=== PATIENT | male | born 1945 | race Caucasian/White ===

== ENCOUNTER 2019-07-11 12:55 | Inpatient (IN) | payer OTHER, SELFPAY ==
[2019-07-11] VITALS (27 sets, daily range): BP systolic 101–173; BP diastolic 78–118; PULSE 101–124; RESP 20–35; TEMP 36.6–38.3; O2SAT 84–98; BMI 29.8
--- NOTE | 2019-07-11 13:00 | ED_ITS ---
Entered by Tanika Collins, acting as scribe for Raghav Foley DO HPI - General Adult General: Chief complaint: Altered Mental Status Stated complaint: POSS SEPSIS, AFIB WITH RVR Time Seen by Provider: 07/11/19 12:58 Source: EMS Mode of arrival: EMS Limitations: altered mental status History of Present Illness: HPI narrative: 74-year-old male who presents emergency room for altered mental status. Is difficult to arouse he cannot answer any meaningful way. He will turn to look at verbal stimuli but offers no attempt to vocalize any answer. He cannot seem to respond in any meaningful way. Family noticed he did not seem quite himself yesterday but this morning was essentially nonresponsive. MD complaint: unresponsive Onset (ago): day(s) (last night) Radiation: non-radiation Severity: moderate Pain Consistency: constant Review of Systems General: Reports: ROS unobtainable due to medical condition and ROS unobtainable due to mental status Narrative: Family reports cough denies known fever. Has not had any vomiting he has had some loose stools at home. PFSH ED PFSH: Medical History Abdominal aortic aneurysm Atrial fibrillation Diabetes mellitus Hypertension Peripheral vascular disease Surgical History History of herniorrhaphy History of orthopedic surgery Right shoulder Hx of cholecystectomy Family History Father CAD (coronary artery disease) Social History Smoking and tobacco status: former smoker Alcohol intake: current Alcohol intake frequency: few times a week Substance/Drug Use: never Physical Exam HENMT: COMMON NORMALS: normocephalic, head/scalp atraumatic, hearing grossly normal bilaterally, external ears normal, EAC's normal, TM's normal bilaterally, nasal mucous membranes and turbinates normal, moist oral mucous membranes and oropharynx normal HEAD & SCALP: normocephalic and atraumatic NOSE: nasal mucous membranes and turbinates normal EXTERNAL EAR: Yes external ears normal EXTERNAL AUDITORY CANAL: EAC's normal TYMPANIC MEMBRANE: TM's normal bilaterally Eye: COMMON NORMALS: PERRL, EOMs intact bilaterally, conjunctivae normal and no scleral icterus CONJUNCTIVA: Yes conjunctivae normal PUPIL: Yes PERRL Neck/C-Spine: COMMON NORMALS: full ROM, no lymphadenopathy, supple and no JVD Lymph: LYMPHATIC: no lymphadenopathy noted and no lymphedema noted Cardio: COMMON NORMALS: no JVD, regular rate, regular rhythm and no murmurs RATE: regular rate RHYTHM: regular rhythm GI: COMMON NORMALS: soft to palpation and no hepatosplenomegaly AUSCULTATION: Yes normoactive bowel sounds PALPATION: Yes soft, No tender, No guarding and Yes no hepatosplenomegaly : OTHER: Bladder palpable above the level of the pubic symphysis moderately tender no guarding no rebound, it is dull to percussion Course ED course: Patient has acute encephalopathy. Is a history of diabetes mellitus atrial fibrillation hypertension. When I initially seen the patient abdomen but not however later in the visit he developed acute abdominal discomfort we will go ahead and CT his abdomen discussed with the hospitalist. Vital Signs: Vital signs: Vital Signs Temperature 98.6 F 07/14/19 16:00 Pulse Rate 83 07/14/19 16:25 Respiratory Rate 16 07/14/19 18:08 Blood Pressure 176/96 07/14/19 16:00 Pulse Oximetry 93 07/14/19 16:22 MDM - General Adult Lab Data: Labs: Lab Results 07/11/19 07/11/19 07/11/19 Range/Units 12:27 12:27 12:27 WBC 22.7 H (4.0-10.0) 10^3/ uL RBC 4.56 (4.1-5.3) 10^6/u L Hgb 15.0 (11.7-16.6) g/dL Hct 44.2 (42.0-52.0) % MCV 96.9 H (80-94) fL MCH 32.9 (28.0-34.0) pg MCHC 33.9 (30.0-36.0) g/dL RDW 12.4 (12.1-15.1) % Plt Count 274 (130-400) 10^3/c mm MPV 11.3 H (7.4-10.4) fL Neut % (Auto) 90.0 % Lymph % (Auto) 2.4 % [place] % (Auto) 6.5 % Eos % (Auto) 0.0 % Baso % (Auto) 0.1 % Neut # (Auto) 20.5 H (1.8-7.7) 10^3/u L Lymph # (Auto) 0.5 L (0.8-4.8) 10^3/u L [place] # (Auto) 1.5 H (0.2-0.9) 10^3/u L Eos # (Auto) 0.0 (0.0-0.8) 10^3/u L Baso # (Auto) 0.0 (0.0-0.1) 10^3/u L Nucleated RBC % (a uto) 0 % Nucleated RBCs # 0.0 /100WBC PT 19.40 H (10.5-13.3) SECO NDS INR 1.58 H (0.8-1.2) APTT 34.3 (23.9-36.7) SECO NDS Specimen Type Sample Site ABG pH (7.35-7.45) ABG pCO2 (35-45) mmHg ABG pO2 (80.0-100.0) mmH g ABG HCO3 (22-26) mmol/L ABG O2 Saturation ABG Base Excess (-2.0-2.0) mmol/ L Orion Test A-a O2 Gradient (5-10) mmHg Hematocrit (42-52) % Hgb O2 Saturation (95-100) % Carboxyhemoglobin (0.4-20.1) %THgb Methemoglobin (0.4-1.5) % Total Hemoglobin (14-18) g/dL Ionized Calcium (1.1-1.4) mmol/L O2 Delivery Device FiO2 % Pony Worker ID Sodium (136-145) mmol/L Potassium (3.5-5.1) mmol/L Chloride (98-107) mmol/L Carbon Dioxide (22-29) mmol/L Anion Gap (5-19) BUN (8-23) mg/dL Creatinine (0.7-1.2) mg/dL Glucose (65-115) mg/dL Lactic Acid (0.5-2.2) mmol/L Calcium (8.5-10.5) mg/dL Total Bilirubin (0.15-1.2) mg/dL AST (0-40) U/L ALT (0-41) U/L Alkaline Phosphata se (40-130) IU/L Troponin T Baselin e 42 H (0-15) ng/mL Troponin T 120 Min [place] (0-15) ng/mL Delta Troponin T (0-10) ABS# Total Protein (6.6-8.7) g/dL Albumin (3.5-5.2) g/dL Globulin (1.3-4.6) g/dL Lipase (13-60) U/L Urine Color (Yellow) Urine Appearance (CLEAR) Urine pH (5-7) Ur Specific Gravit y (1.005-1.030) Urine Protein (Negative) Urine Glucose (UA) (Normal) Urine Ketones (Negative) Urine Blood (Negative) Urine Nitrate (Negative) Urine Bilirubin (NEGATIVE) Urine Urobilinogen (Negative) mg/dL Ur Leukocyte Armida ase (Negative) Urine RBC (0-2) /hpf Urine WBC (0-5) /hpf Ur Squamous Epith Cells (0-5) Urine Bacteria (NONE) Urine Mucus Serum Ketones (Negative) Influenza Type A A g (Negative) POC Influenza B Ag (Negative) 07/11/19 07/11/19 07/11/19 Range/Units 12:27 12:27 13:05 WBC (4.0-10.0) 10^3/ uL RBC (4.1-5.3) 10^6/u L Hgb (11.7-16.6) g/dL Hct (42.0-52.0) % MCV (80-94) fL MCH (28.0-34.0) pg MCHC (30.0-36.0) g/dL RDW (12.1-15.1) % Plt Count (130-400) 10^3/c mm MPV (7.4-10.4) fL Neut % (Auto) % Lymph % (Auto) % [place] % (Auto) % Eos % (Auto) % Baso % (Auto) % Neut # (Auto) (1.8-7.7) 10^3/u L Lymph # (Auto) (0.8-4.8) 10^3/u L [place] # (Auto) (0.2-0.9) 10^3/u L Eos # (Auto) (0.0-0.8) 10^3/u L Baso # (Auto) (0.0-0.1) 10^3/u L Nucleated RBC % (a uto) % Nucleated RBCs # /100WBC PT (10.5-13.3) SECO NDS INR (0.8-1.2) APTT (23.9-36.7) SECO NDS Specimen Type Arterial Sample Site Radial, left ABG pH 7.47 H (7.35-7.45) ABG pCO2 26.3 L (35-45) mmHg ABG pO2 65.4 L (80.0-100.0) mmH g ABG HCO3 19.0 L (22-26) mmol/L ABG O2 Saturation 94.7 ABG Base Excess -3.0 L (-2.0-2.0) mmol/ L Orion Test Pos A-a O2 Gradient 51.5 H (5-10) mmHg Hematocrit 48.1 (42-52) % Hgb O2 Saturation 92.6 L (95-100) % Carboxyhemoglobin 1.6 (0.4-20.1) %THgb Methemoglobin 0.6 (0.4-1.5) % Total Hemoglobin 15.7 (14-18) g/dL Ionized Calcium 1.1 (1.1-1.4) mmol/L O2 Delivery Device Room air FiO2 21.0 % Pony Worker ID cak Sodium 132 L 135.0 (136-145) mmol/L Potassium 3.6 3.6 (3.5-5.1) mmol/L Chloride 92 L (98-107) mmol/L Carbon Dioxide 18 L (22-29) mmol/L Anion Gap 25.6 H (5-19) BUN 21 (8-23) mg/dL Creatinine 1.2 (0.7-1.2) mg/dL Glucose 341 H 332.0 H (65-115) mg/dL Lactic Acid (0.5-2.2) mmol/L Calcium 9.4 (8.5-10.5) mg/dL Total Bilirubin 1.4 H (0.15-1.2) mg/dL AST 43 H (0-40) U/L ALT 51 H (0-41) U/L Alkaline Phosphata se 100 (40-130) IU/L Troponin T Baselin e (0-15) ng/mL Troponin T 120 Min [place] (0-15) ng/mL Delta Troponin T (0-10) ABS# Total Protein 7.6 (6.6-8.7) g/dL Albumin 3.8 (3.5-5.2) g/dL Globulin 3.8 (1.3-4.6) g/dL Lipase 22 (13-60) U/L Urine Color (Yellow) Urine Appearance (CLEAR) Urine pH (5-7) Ur Specific Gravit y (1.005-1.030) Urine Protein (Negative) Urine Glucose (UA) (Normal) Urine Ketones (Negative) Urine Blood (Negative) Urine Nitrate (Negative) Urine Bilirubin (NEGATIVE) Urine Urobilinogen (Negative) mg/dL Ur Leukocyte Armida ase (Negative) Urine RBC (0-2) /hpf Urine WBC (0-5) /hpf Ur Squamous Epith Cells (0-5) Urine Bacteria (NONE) Urine Mucus Serum Ketones Negative (Negative) Influenza Type A A g (Negative) POC Influenza B Ag (Negative) 07/11/19 07/11/19 07/11/19 Range/Units 13:22 14:05 15:10 WBC (4.0-10.0) 10^3/ uL RBC (4.1-5.3) 10^6/u L Hgb (11.7-16.6) g/dL Hct (42.0-52.0) % MCV (80-94) fL MCH (28.0-34.0) pg MCHC (30.0-36.0) g/dL RDW (12.1-15.1) % Plt Count (130-400) 10^3/c mm MPV (7.4-10.4) fL Neut % (Auto) % Lymph % (Auto) % [place] % (Auto) % Eos % (Auto) % Baso % (Auto) % Neut # (Auto) (1.8-7.7) 10^3/u L Lymph # (Auto) (0.8-4.8) 10^3/u L [place] # (Auto) (0.2-0.9) 10^3/u L Eos # (Auto) (0.0-0.8) 10^3/u L Baso # (Auto) (0.0-0.1) 10^3/u L Nucleated RBC % (a uto) % Nucleated RBCs # /100WBC PT (10.5-13.3) SECO NDS INR (0.8-1.2) APTT (23.9-36.7) SECO NDS Specimen Type Sample Site ABG pH (7.35-7.45) ABG pCO2 (35-45) mmHg ABG pO2 (80.0-100.0) mmH g ABG HCO3 (22-26) mmol/L ABG O2 Saturation ABG Base Excess (-2.0-2.0) mmol/ L Orion Test A-a O2 Gradient (5-10) mmHg Hematocrit (42-52) % Hgb O2 Saturation (95-100) % Carboxyhemoglobin (0.4-20.1) %THgb Methemoglobin (0.4-1.5) % Total Hemoglobin (14-18) g/dL Ionized Calcium (1.1-1.4) mmol/L O2 Delivery Device FiO2 % Pony Worker ID Sodium (136-145) mmol/L Potassium (3.5-5.1) mmol/L Chloride (98-107) mmol/L Carbon Dioxide (22-29) mmol/L Anion Gap (5-19) BUN (8-23) mg/dL Creatinine (0.7-1.2) mg/dL Glucose (65-115) mg/dL Lactic Acid (0.5-2.2) mmol/L Calcium (8.5-10.5) mg/dL Total Bilirubin (0.15-1.2) mg/dL AST (0-40) U/L ALT (0-41) U/L Alkaline Phosphata se (40-130) IU/L Troponin T Baselin e (0-15) ng/mL Troponin T 120 Min [place] 39.56 H (0-15) ng/mL Delta Troponin T -2.44 L (0-10) ABS# Total Protein (6.6-8.7) g/dL Albumin (3.5-5.2) g/dL Globulin (1.3-4.6) g/dL Lipase (13-60) U/L Urine Color Yellow (Yellow) Urine Appearance Clear (CLEAR) Urine pH 5.0 (5-7) Ur Specific Gravit y 1.020 (1.005-1.030) Urine Protein Trace (Negative) Urine Glucose (UA) 4+ H (Normal) Urine Ketones 1+ H (Negative) Urine Blood Neg (Negative) Urine Nitrate Negative (Negative) Urine Bilirubin Neg (NEGATIVE) Urine Urobilinogen Norm (Negative) mg/dL Ur Leukocyte Armida ase Negative (Negative) Urine RBC Rare (0-2) /hpf Urine WBC Rare (0-5) /hpf Ur Squamous Epith Cells None (0-5) Urine Bacteria None (NONE) Urine Mucus Trace Serum Ketones (Negative) Influenza Type A A g Negative (Negative) POC Influenza B Ag Negative (Negative) 07/11/19 Range/Units 16:25 WBC (4.0-10.0) 10^3/ uL RBC (4.1-5.3) 10^6/u L Hgb (11.7-16.6) g/dL Hct (42.0-52.0) % MCV (80-94) fL MCH (28.0-34.0) pg MCHC (30.0-36.0) g/dL RDW (12.1-15.1) % Plt Count (130-400) 10^3/c mm MPV (7.4-10.4) fL Neut % (Auto) % Lymph % (Auto) % [place] % (Auto) % Eos % (Auto) % Baso % (Auto) % Neut # (Auto) (1.8-7.7) 10^3/u L Lymph # (Auto) (0.8-4.8) 10^3/u L [place] # (Auto) (0.2-0.9) 10^3/u L Eos # (Auto) (0.0-0.8) 10^3/u L Baso # (Auto) (0.0-0.1) 10^3/u L Nucleated RBC % (a uto) % Nucleated RBCs # /100WBC PT (10.5-13.3) SECO NDS INR (0.8-1.2) APTT (23.9-36.7) SECO NDS Specimen Type Sample Site ABG pH (7.35-7.45) ABG pCO2 (35-45) mmHg ABG pO2 (80.0-100.0) mmH g ABG HCO3 (22-26) mmol/L ABG O2 Saturation ABG Base Excess (-2.0-2.0) mmol/ L Orion Test A-a O2 Gradient (5-10) mmHg Hematocrit (42-52) % Hgb O2 Saturation (95-100) % Carboxyhemoglobin (0.4-20.1) %THgb Methemoglobin (0.4-1.5) % Total Hemoglobin (14-18) g/dL Ionized Calcium (1.1-1.4) mmol/L O2 Delivery Device FiO2 % Pony Worker ID Sodium (136-145) mmol/L Potassium (3.5-5.1) mmol/L Chloride (98-107) mmol/L Carbon Dioxide (22-29) mmol/L Anion Gap (5-19) BUN (8-23) mg/dL Creatinine (0.7-1.2) mg/dL Glucose (65-115) mg/dL Lactic Acid 4.7 H* (0.5-2.2) mmol/L Calcium (8.5-10.5) mg/dL Total Bilirubin (0.15-1.2) mg/dL AST (0-40) U/L ALT (0-41) U/L Alkaline Phosphata se (40-130) IU/L Troponin T Baselin e (0-15) ng/mL Troponin T 120 Min [place] (0-15) ng/mL Delta Troponin T (0-10) ABS# Total Protein (6.6-8.7) g/dL Albumin (3.5-5.2) g/dL Globulin (1.3-4.6) g/dL Lipase (13-60) U/L Urine Color (Yellow) Urine Appearance (CLEAR) Urine pH (5-7) Ur Specific Gravit y (1.005-1.030) Urine Protein (Negative) Urine Glucose (UA) (Normal) Urine Ketones (Negative) Urine Blood (Negative) Urine Nitrate (Negative) Urine Bilirubin (NEGATIVE) Urine Urobilinogen (Negative) mg/dL Ur Leukocyte Armida ase (Negative) Urine RBC (0-2) /hpf Urine WBC (0-5) /hpf Ur Squamous Epith Cells (0-5) Urine Bacteria (NONE) Urine Mucus Serum Ketones (Negative) Influenza Type A A g (Negative) POC Influenza B Ag (Negative) Discharge Plan Discharge Admit Provider: Teresa Vargas Discharge Date/Time: 07/11/19 19:48 Coding Level of Care Code ED Mis Director for Chg Fwd Exam Detailed The documentation recorded by the Dennis ron Bridget Annette, accurately reflects the service I personally performed and the decisions made by Alaina dang Curtis L, Jul 11, 2019 12:55
--- NOTE | 2019-07-11 13:08 | ECG_ITS ---
Measurements Intervals [place] Rate: 114 P: TN: 0 QRS: 44 QRSD: 97 T: 62 QT: 318 QTc: 438 ATRIAL FIBRILLATION WITH RAPID VENTRICULAR RESPONSE POSSIBLE RIGHT VENTRICULAR CONDUCTION DELAY NONSPECIFIC ST & T-WAVE ABNORMALITY Compared to ECG 04/07/2016 13:01:54 T-wave abnormality now present Sinus rhythm no longer present Ventricular premature complex(es) no longer present Electronically Signed On 07-11-2019 17:28:44 CHEST PAINTING AND SEALING SUPERVISOR by Ethel Sifuentes M.D. [email or web address]
--- NOTE | 2019-07-11 13:09 | CT_ITS ---
WS: [id number] CT HEAD TECHNIQUE: Noncontrast CT of the head obtained from the skullbase to the vertex. CLINICAL INFORMATION: AMS COMPARISON: None. DLP: 773.[address] scans at [facility] use at least one of these dose optimization techniques: automat ed exposure control; mA and/or kV adjustment per patient size (includes targeted exams where dose is matched to clinical indication); or iterative reconstruction. FINDINGS: No evidence of intracranial hemorrhage or mass effect. Ventricular system and basal cisterns are del rosario nt. Moderate small vessel changes with moderate parenchymal volume loss. Chronic lacunar infarct righ t lateral basal ganglia. Intracranial vascular calcification. Chronic lacunar infarcts in the right c audate. . Paranasal sinuses and mastoid air cells are well aerated. .Normal visualized soft tissues. Notified Raghav Foley DO at 07/11/2019 3:[address]/CT head wo con* [id number] IMPRESSION: 1. No evidence of intracranial hemorrhage or mass effect. 2. Moderate small vessel changes moderate parenchymal volume loss. 3. Chronic lacunar infarcts in the right caudate and right lateral basal gangl ia. 4. No acute intracranial findings.
[2019-07-11 13:16] LABS: ABG PCO2 26.3 mmHg (35-45); ABG PH Result 7.47 (7.35-7.45); Alveolar-Arterial Oxygen Gradi 51.5 mmHg (5-10); Arterial Blood Gas Hematocrit 48.1 % (42-52); Blood Gas Allen Test Pos; Blood Gas Sample Site Radial, left; Blood Gas Sample Type Arterial; Carboxyhemoglobin 1.6 %THgb (0.4-20.1); HGB O2 Sat 92.6 % (95-100); Ionized Calcium Level - ABG 1.1 mmol/L (1.1-1.4); Methemoglobin 0.6 % (0.4-1.5); Oxygen Device ROOM AIR; Oxygen Saturation ABG 94.7; PO2 ABG 65.4 mmHg (80.0-100.0); Potassium Level - ABG 3.6 mmol/L (3.5-5.0); Total Hemoglobin 15.7 g/dL (14-18)
[2019-07-11 13:24] LABS: Basophils % 0.1 %; Hematocrit 44.2 % (42.0-52.0); Lymphocytes # 0.5 10^3/uL (0.8-4.8); Lymphocytes % 2.4 %; Mean Corpuscular HGB Conc 33.9 g/dL (30.0-36.0); Mean Corpuscular Hemoglobin 32.9 pg (28.0-34.0); Mean Corpuscular Volume 96.9 fL (80-94); Mean Platelet Volume 11.3 fL (7.4-10.4); Monocytes # 1.5 10^3/uL (0.2-0.9); Monocytes % 6.5 %; Neutrophils # 20.5 10^3/uL (1.8-7.7); Nucleated Red Blood Cells % 0 %; Platelet Count 274 10^3/cmm (130-400); Red Blood Count 4.56 10^6/uL (4.1-5.3); Red Cell Distribution Width 12.4 % (12.1-15.1); White Blood Count 22.7 10^3/uL (4.0-10.0)
[2019-07-11 13:37] LABS: Alanine Aminotransferase 51 U/L (0-41); Albumin Level 3.8 g/dL (3.5-5.2); Alkaline Phosphatase 100 IU/L (40-130); Anion Gap 25.6 (5-19); Aspartate Amino Transferase 43 U/L (0-40); Blood Urea Nitrogen 21 mg/dL (8-23); Calcium 9.4 mg/dL (8.5-10.5); Carbon Dioxide 18 mmol/L (22-29); Chloride 92 mmol/L (98-107); Creatinine Clr Calc Pharmacy 67.0589; Globulin 3.8 g/dL (1.3-4.6); Glucose 341 mg/dL (65-115); Lipase 22 U/L (13-60); Potassium 3.6 mmol/L (3.5-5.1); Sodium 132 mmol/L (136-145); Total Bilirubin 1.4 mg/dL (0.15-1.2); Total Protein 7.6 g/dL (6.6-8.7)
[2019-07-11 13:40] LABS: Troponin(5th) Baseline 42 ng/mL (0-15)
[2019-07-11 13:57] LABS: INR 1.58 (0.8-1.2); Partial Thromboplastin Time 34.3 SECONDS (23.9-36.7)
[2019-07-11] MEDS: sodium chloride 0.9% 1,000 ML 999 ML IV (14:11)
--- NOTE | 2019-07-11 14:18 | XR_ITS ---
WS: [id number] XR chest 1V portable [id number] REASON FOR EXAM: dyspnea/cough FINDINGS: The cardiac silhouette is not enlarged with arteriosclerotic changes seen There is low-grade atelectasis off the left hilum. There are small nodular densities suggesting inflammatory changes throughout both lung rhodes. There is arteriosclerotic changes seen. XR/XR chest 1V portable [id number] IMPRESSION: Low-grade atelectasis off the left hilum There is low-grade inflammatory changes both lung rhodes.
[2019-07-11 14:20] LABS: Ketone (Acetest) Serum Negative (Negative)
[2019-07-11 14:34] LABS: Bilirubin Urine Neg (NEGATIVE); Blood Urine Neg (Negative); Glucose Urine UA 4+ (Normal); Ketones Urine 1+ (Negative); Nitrate Urine Negative (Negative); Protein Urine Trace (Negative); Urine Appearance Clear (CLEAR); Urine Color Yellow (Yellow); Urobilinogen Urine Norm (Negative)
[2019-07-11 14:35] LABS: Add Urine Microscopic? YES; Leukocyte Esterase Urine Negative (Negative)
--- NOTE | 2019-07-11 14:36 | PC.NURSE ---
xray in room then patient to ct
[2019-07-11 14:37] LABS: Add Urine Culture? No; Mucus Urine TRACE; RBC Urine RARE /hpf (0-2); WBC Urine RARE /hpf (0-5)
[2019-07-11 14:42] LABS: Influenza A by IFA Negative (Negative); Influenza B by IFA Negative (Negative)
--- NOTE | 2019-07-11 15:08 | ECG_ITS ---
Measurements Intervals [place] Rate: 141 P: ND: 0 QRS: 53 QRSD: 98 T: 0 QT: 152 QTc: 233 ATRIAL FLUTTER/TACHYCARDIA WITH RAPID VENTRICULAR RESPONSE NONSPECIFIC ST & T-WAVE ABNORMALITY ABNORMAL RHYTHM ECG Compared to ECG 04/07/2016 13:01:54 T-wave abnormality now present Sinus rhythm no longer present Ventricular premature complex(es) no longer present Electronically Signed On 07-11-2019 20:15:58 ARMY MANAGER by Ethel Sifuentes M.D. [email or web address]
--- NOTE | 2019-07-11 15:12 | PC.PHAR ---
Addendum entered by Huma Alcaraz 07/11/19 16:33: THE PURPLE PILL MIGHT BE THE WARFARIN, THE WAS JUST NOT SURE. Original Note: [facility]. THIS IS WHAT PATIENT BROUGHT WITH HIM.
--- NOTE | 2019-07-11 15:41 | PC.PHAR ---
PTS STATES THAT HE TAKES A PURPLE PILL FOR A FIB. I AM STILL [facility]IT[facility].
[2019-07-11 15:45] LABS: Troponin 5 2HR 39.56 ng/mL (0-15)
[2019-07-11] MEDS: levofloxacin-dextrose 5 % 750 MG/150 ML PREMIX 150 MG IV (16:01)
[2019-07-11 16:11] LABS: Troponin 5 2HR Delta -2.44 ABS# (0-10)
[2019-07-11 16:54] LABS: Lactic Sepsis W/Reflex 4.7 mmol/L (0.5-2.2)
--- NOTE | 2019-07-11 16:56 | CTR_ITS ---
PROCEDURE INFORMATION: Exam: CT Abdomen And Pelvis With Contrast Exam date and time: 07/11/2019 4:57 PM Age: 74 years old Clinical indication: Abdominal tenderness; Patient HX: Limited HX due to PT condition, AMS; Additional info: Abd pain TECHNIQUE: Imaging protocol: Computed tomography of the abdomen and pelvis with intravenous contrast. Total DLP: 2135.33 mGy-cm Radiation optimization: All CT scans at this facility use at least one of these dose optimization techniques: automated exposure control; mA and/or kV adjustment per patient size (includes targeted exams where dose is matched to clinical indication); or iterative reconstruction. Contrast material: OMNIPAQUE 300; Contrast volume: 95 ml; Contrast route: IV; COMPARISON: No relevant prior studies available. FINDINGS: Tubes, catheters and devices: A balloon bladder catheter is present. Lungs: Nonspecific bibasilar consolidation is present, consistent with atelectasis, edema, or pneumonia. Heart: The heart is enlarged. Mediastinum: A small hiatal hernia is present. Liver: There is mild fatty infiltration liver. Gallbladder and bile ducts: Normal. No calcified stones. No ductal dilation. Pancreas: Normal. No ductal dilation. Spleen: Normal. No splenomegaly. Adrenals: Normal. No mass. Kidneys and ureters: There is a horseshoe kidney. There is abundant perinephric fat stranding. No nephrolithiasis. No hydronephrosis or obstructing calculi. The kidneys are otherwise unremarkable. Stomach and bowel: Mild diverticulosis is present in the distal colon. There is no evidence of colitis/diverticulitis. There is no evidence of intestinal perforation or obstruction. Appendix: No evidence of appendicitis. Intraperitoneal space: Unremarkable. No free air. No significant fluid collection. Vasculature: The aorta demonstrates moderate atherosclerotic calcification. Distal abdominal aorta at min is enlarged measuring up to 4.2 cm. No dissection or leak. Lymph nodes: Unremarkable.No enlarged lymph nodes. Bladder: The bladder is decompressed. Reproductive: The prostate demonstrates nonspecific parenchymal calcifications. The prostate demonstrates mild nonspecific enlargement. The seminal vesicles are normal. Bones/joints: Unremarkable. No acute fracture. Soft tissues: There is a nonobstructing right inguinal hernia. Small fat filled ventral hernias noted superior to the umbilicus. CT/CT abdomen pelvis w con* [id number] IMPRESSION: 1. Nonspecific bibasilar consolidation is present, consistent with atelectasis, edema, or pneumonia. 2. 4.2 cm distal abdominal aortic aneurysm. No dissection or leak. 3. Horseshoe kidney. There is inflammatory perinephric stranding. This could reflect some reactive change to urinary tract infection but no evidence of pyelonephritis. No hydronephrosis or obstructing calculi. Radiation Dose CTDIVOL = (mGy): DLP = 2135.33 (mGy-cm)
--- NOTE | 2019-07-11 16:56 | P.HP_ITS ---
Providers/Chief Complaint Admitting Physician: Teresa Vargas DO Chief Complaint: POSS SEPSIS, AFIB WITH RVR History of Present Illness Azam Mccabe is a 74 year old male with a past medical history of diabetes and hypertension that presented to the emergency department today for altered mental status. Patient's son and are at bedside. reported that he was confused last night and not acting himself went to bed and woke up this morning and was extremely sleepy and could barely hold his eyes open. They stated that he is not been able to speak since last night. They brought patient to the ER for further evaluation due to his symptoms. reported that he was shivering yesterday with concern for question of fever. No sick contacts, no recent antibiotics or steroids. Patient did have some gout in the right hand of which she just started allopurinol. She denies any constipation, reports possibly an episode of diarrhea this morning but is uncertain. Patient yesterday morning was up and walking around, last known well was yesterday early afternoon. Patient was seen and evaluated in the emergency department noted to have concern for sepsis with unknown source, given Levaquin and IV fluids. Review of Systems General: Reports: ROS unobtainable due to medical condition Medications/Allergies Home Medications Medication Instructions Recorded Confirmed Last Taken Type acetaminophen [Acetaminophen Extra 500 mg PO QID PRN 07/11/19 07/11/19 07/11/19 History Strength] albuterol sulfate [ProAir HFA] 2 puff INHALATION QID 07/11/19 07/11/19 07/11/19 History allopurinol 100 mg PO DAILY 07/11/19 07/11/19 07/11/19 History budesonide-formoterol [Symbicort] 2 puff INHALATION BID 07/11/19 07/11/19 07/11/19 History colchicine 0.6 mg PO DAILY 07/11/19 07/11/19 07/11/19 History cyclobenzaprine 10 mg PO BEDTIME PRN 07/11/19 07/11/19 07/10/19 History glipizide 10 mg PO BID 07/11/19 07/11/19 Unknown History hydrochlorothiazide 25 mg PO DAILY 07/11/19 07/11/19 Unknown History hydrocodone-acetaminophen 1 tab PO QID PRN 07/11/19 07/11/1920 History lisinopril 2.5 mg PO DAILY 07/11/19 07/11/19 07/11/19 History melatonin See Rx Instructions .ROUTE .COMPLEX 07/11/19 07/11/19 07/10/19 History sertraline See Rx Instructions .ROUTE .COMPLEX 07/11/19 07/11/19 07/11/19 History warfarin See Rx Instructions .ROUTE .COMPLEX 07/11/19 07/11/19 07/10/19 History Allergies Allergy/AdvReac Type Severity Reaction Status Date / Time Penicillins Allergy Unknown Verified 07/11/19 13:11 PFSH Acute PFSH: Medical History (Updated 07/11/19 @ 17:00 by Teresa Vargas DO) Abdominal aortic aneurysm Atrial fibrillation Diabetes mellitus Hypertension Peripheral vascular disease Surgical History (Updated 07/11/19 @ 17:00 by Teresa Vargas DO) History of herniorrhaphy History of orthopedic surgery Right shoulder Hx of cholecystectomy Family History (Updated 07/11/19 @ 17:01 by Teresa Vargas DO) Father CAD (coronary artery disease) Social History (Updated 07/11/19 @ 17:01 by Teresa Vargas DO) Smoking and tobacco status: former smoker Alcohol intake: current Alcohol intake frequency: few times a week Substance/Drug Use: never Vitals/I&O/Wt Last Vital Signs Temp 99.5 F 07/11/19 15:39 Pulse 106 H 07/11/19 12:58 Resp 26 H 07/11/19 12:58 BP 132/104 07/11/19 15:39 Pulse Ox 95 07/11/19 15:39 Weight last 48 hrs Weight 99.79 kg Physical Exam Const: OTHER: Will turn his head in response to questions but does not verbalize HENMT: COMMON NORMALS: normocephalic and head/scalp atraumatic HEAD & SCALP: normocephalic and atraumatic Eye: COMMON NORMALS: PERRL PUPIL: Yes PERRL Neck/C-Spine: COMMON NORMALS: supple GENERAL: Yes normal visual inspection Resp: OTHER: Tachypneic, lungs clear to auscultation without wheezing or rhonchi Cardio: OTHER: Irregularly irregular, systolic murmur GI: OTHER: Hypoactive bowel sounds, guarding on exam, worse in the right upper quadrant Extremity: COMMON NORMALS: no clubbing, cyanosis or edema and no calf tenderness Neuro: OTHER: Patient turns his head to voice but does not verbalize, does not follow any commands at this time Urinary Catheter Management^: Benson: Cath Placed During This Visit: yes Urethral Indwelling: Yes Reason for Continuing Indwelling Catheter: Accurate Measurement of Urinary Output in Critically Ill Patients Urinary Catheter Date of Insertion: 07/11/19 Urinary Catheter Time of Insertion: 14:34 Data : 07/11/19 12:27 07/11/19 12:27 CXR: Radiologist's impression: IMPRESSION: Low-grade atelectasis off the left hilum There is low-grade inflammatory changes both lung rhodes. CT Head: Radiologist's impression: IMPRESSION: 1. No evidence of intracranial hemorrhage or mass effect. 2. Moderate small vessel changes moderate parenchymal volume loss. 3. 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 4. No acute intracranial findings. A&P Assessment and plan (1) Acute encephalopathy: Patient able to turn his head in response to questions but does not verbalize any responses CT scan of the head as noted above Concern for acute encephalopathy, metabolic encephalopathy Concern for sepsis no further work-up as noted below Continue with serial neurologic checks and ICU admission Status: Acute Code(s): G93.40 - Encephalopathy, unspecified (2) Sepsis: Sepsis with unknown source, CT scan of the abdomen and pelvis for further evaluation due to patient having tenderness to palpation on exam, broaden antibiotic coverage to Vanco and Zosyn Blood culture ordered and pending Status: Acute Code(s): A41.9 - Sepsis, unspecified organism (3) Transaminitis: Transaminitis with guarding and hypoactive bowel sounds on exam, CT scan of the abdomen and pelvis ordered at time of exam in the ER Status: Acute Code(s): R74.0 - Nonspecific elevation of levels of transaminase and lactic acid dehydrogenase [LDH] (4) Abdominal pain: CT scan of the abdomen and pelvis due to concern for sepsis with transaminitis hypoactive bowel sounds and rigidity Status: Acute Code(s): R10.9 - Unspecified abdominal pain (5) Abdominal aortic aneurysm: Known Status: Acute Code(s): I71.4 - Abdominal aortic aneurysm, without rupture (6) Atrial fibrillation: Known atrial fibrillation on chronic anticoagulation will start on beta- dayna Status: Acute Code(s): I48.91 - Unspecified atrial fibrillation (7) Hypertension: Patient appears to be dry at this time, will continue to monitor closely Status: Acute Code(s): I10 - Essential (primary) hypertension Additional A&P Information Leukocytosis: With concern for sepsis with unknown source at this time, continue further work-up as noted above and continue on broad-spectrum antibiotics with IV fluids Systolic murmur: Echocardiogram ordered for further evaluation and treatment Diabetes mellitus type 2: Continue on sliding scale insulin at this time Chronic anticoagulation: Holding home Coumadin and placed on treatment dose Lovenox Dehydration with hyponatremia and hypochloremia: Continue with IV fluids and recheck in the morning Hyperbilirubinemia: Further CT scan of the abdomen and pelvis as noted above DVT prophylaxis: On treatment dose Lovenox due to concern for atrial fibrillation Diet: N.p.o. CODE STATUS: Full code Attestations Medical Necessity Statement*: Patient requires hospitalization due to sepsis with acute encephalopathy and hyperbilirubinemia and transaminitis, expected stay greater than 2 midnights Coding Level of Care Code Acute Assessment Manager for [facility] Fwd Diagnoses Acute encephalopathy G93.40 Sepsis A41.9 Transaminitis R74.0 Abdominal pain R10.9 Abdominal aortic aneurysm I71.4 Atrial fibrillation I48.91 Hypertension I10
--- NOTE | 2019-07-11 17:09 | USCV_ITS ---
Azam Mccabe Age: 74 Gender: M : 1945 Exam Date: 07/11/2019 18:23 Ordering Phys: Teresa Vargas DO Technologist: Mitali Ortiz Exam Location: [facility] – [place] Indication: MURMUR BP: 132 / 104 HR: 130 Rhythm: Sinus Technical Quality: Poor MEASUREMENTS (Male / Female) Normal Values 2D ECHO LV Diastolic Diameter PLAX 2.6 cm 4.2 - 5.9 / 3.9 - 5.3 cm LV Systolic Diameter PLAX 2.1 cm LV Chamber Size 2.4 cm IVS Diastolic Thickness 1.8 cm 0.6 - 1.0 / 0.6 - 0.9 cm IVS Systolic Thickness 1.7 cm LVPW Diastolic Thickness 2.2 cm 0.6 - 1.0 / 0.6 - 0.9 cm LVPW Systolic Thickness 2.0 cm RV Chamber Size 3.1 cm LVOT Diameter 2.0 cm LV Ejection Fraction 2D Teich 36.8 % LV Ejection Fraction MOD 2C 66.9 % LV Ejection Fraction 2C AL 68.7 % LA Diameter 5.6 cm LA Width 4.0 cm LA Height 6.0 cm RA Width 3.1 cm RA Height 5.0 cm Aorta at Sinotubular Diameter 2.3 cm M-MODE LV Diastolic Diameter MM 3.7 cm 4.2 - 5.9 / 3.9 - 5.3 cm LV Systolic Diameter MM 2.8 cm LV Ejection Fraction MM Teich 48.4 % IVS Diastolic Thickness MM 1.5 cm 0.6 - 1.0 / 0.6 - 0.9 cm IVS Systolic Thickness MM 1.3 cm LVPW Diastolic Thickness MM 1.6 cm 0.6 - 1.0 / 0.6 - 0.9 cm LVPW Systolic Thickness MM 1.1 cm Aortic Annulus Diameter 2.4 cm LA Ao Ratio MM 2.4 MV E Point Septal Separation 0.6 cm DOPPLER AV Peak Velocity 220.0 cm/s LVOT Peak Velocity 122.0 cm/s AV Area Cont Eq vti 1.8 cm squared AV Area Cont Eq pk 1.8 cm squared MV Area PHT 7.9 cm squared Mitral E to A Ratio 3.1 MV E' Velocity 17.0 cm/s Mitral E to MV E' Ratio 8.8 Mitral E to LV E' Lateral Ratio 8.1 Mitral E to LV E' Septal Ratio 9.7 TR Peak Velocity 319.0 cm/s TR Peak Gradient 40.8 mmHg TV Peak E Velocity 89.0 cm/s Right Atrial Pressure 3.0 mmHg Pulmonary Artery Systolic Pressu 43.7 mmHg PV Peak Velocity 121.0 cm/s RV Acceleration Time 0.1 s RV Ejection Time 0.4 s RV AcT/ET 0.2 FINDINGS Left Ventricle Normal left ventricular cavity size. Normal left ventricular systolic function. No regional wall motion abnormalities. Left ventricular ejection fraction is estimated at 55 %. In the presence of atrial fibrillation diastolic function cannot be assessed accurately. Right Ventricle The right ventricle is normal in size and function. Moderate pulmonary hypertension, RVSP 43.7 mmHg. Right Atrium The right atrium is normal in size. Left Atrium Moderately increased left atrial size. Mitral Valve Moderately thickened mitral valve. No mitral valve stenosis. Trace mitral valve regurgitation. Aortic Valve Moderate aortic valve calcification. Moderate aortic valve stenosis, mean gradient 9 mmHg, MANOLO 1.8 cm squared. Trace aortic valve regurgitation. Tricuspid Valve Trace tricuspid valve regurgitation. Pulmonic Valve Structurally normal pulmonic valve without significant stenosis. There is no pulmonic regurgitation. Pericardium Normal pericardium without effusion. Aorta Normal ascending aorta dimension. CONCLUSIONS 1-Normal left ventricular cavity size. Normal left ventricular systolic function. No regional wall motion abnormalities. Left ventricular ejection fraction is estimated at 55 %. In the presence of atrial fibrillation diastolic function cannot be assessed accurately. 2-Moderate aortic valve calcification. Moderate aortic valve stenosis, mean gradient 9 mmHg, MANOLO 1.8 cm squared. Trace aortic valve regurgitation. 3-Moderately thickened mitral valve. No mitral valve stenosis. Trace mitral valve regurgitation. 4-There is no pericardial effusion. 5-The right ventricle is normal in size and function. Moderate pulmonary hypertension, RVSP 43.7 mmHg. 6-There are no prior echocardiogram studies to compare. Nataly Ramirez MD (Electronically Signed) Final Date: 11 July 2019 21:18 S
[2019-07-11] MEDS: iohexol 300 mg/mL 100 mL Btl IV (17:12)
--- NOTE | 2019-07-11 17:16 | PC.NURSE ---
PATIENT TAKEN TO CT FOR ABDOMEN AND PELVIS
--- NOTE | 2019-07-11 17:22 | PC.NURSE ---
LOPEZ EMPTIED AND 900 ML EMPTEID
--- NOTE | 2019-07-11 17:39 | PC.NURSE ---
COOLING MEASURES GIVEN,,, ICE AND TOWEL ON FOREHEAD
[2019-07-11] MEDS: metroNIDAZOLE IV 500 MG/100 ML PREMIX 100 MG IV (17:57)
--- NOTE | 2019-07-11 18:05 | CTR_ITS ---
PROCEDURE INFORMATION: Exam: CT Angiography Abdomen and Pelvis With Contrast Exam date and time: 07/11/2019 6:45 PM Age: 74 years old Clinical indication: Other: Ischemic bowel; Additional info: Abd pain, peritoneal sympoms TECHNIQUE: Imaging protocol: Computed tomographic angiography of the abdomen and pelvis with intravenous contrast material. 3D rendering: MIP and/or 3D reconstructed images were created by the technologist. Total DLP: 1638.01 mGy-cm Radiation optimization: All CT scans at this facility use at least one of these dose optimization techniques: automated exposure control; mA and/or kV adjustment per patient size (includes targeted exams where dose is matched to clinical indication); or iterative reconstruction. Contrast material: VISIPAQUE; Contrast volume: 95 ml; Contrast route: IV; COMPARISON: CT abdomen pelvis w con* [id number] 07/11/2019 5:24 PM FINDINGS: Tubes, catheters and devices: A balloon bladder catheter is present. Lungs: Nonspecific bibasilar consolidation is present, consistent with atelectasis, edema, or pneumonia. Mediastinum: A small hiatal hernia is present. Aorta: Aneurysmal dilatation of the distal abdominal aorta is noted measuring 4.1 by 3.8 cm. No dissection or leak. No retroperitoneal fluid or adenopathy. Celiac trunk and mesenteric arteries: No occlusion or significant stenosis. Renal arteries: No occlusion or significant stenosis. Right iliac arteries: No occlusion or significant stenosis. Left iliac arteries: No occlusion or significant stenosis. Liver: No mass. Gallbladder and bile ducts: Unremarkable. No calcified stones. No ductal dilation. Pancreas: Unremarkable. No mass. No ductal dilation. Spleen: Unremarkable. No splenomegaly. Adrenals: Unremarkable. No mass. 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 No hydronephrosis or nephrolithiasis. Stomach and bowel: There is abundant stool in the distal colon but no impaction. Diverticulosis without diverticulitis is noted. The majority of the colon is collapsed. No definite wall thickening or colitis. No ileus or obstruction. The loops of small bowel have an appropriate appearance. Appendix: No evidence of appendicitis. Intraperitoneal space: Unremarkable. No free air. No significant fluid collection. Lymph nodes: No adenopathy. Bladder: The bladder is decompressed. Reproductive: Unremarkable as visualized. Bones/joints: Osteopenia and degenerative changes are noted in the spine. No acute fracture or bony destructive lesion. Soft tissues: Unremarkable. CT/CT angio abdomen pelvis [id number] IMPRESSION: 1. Nonspecific bibasilar consolidation is present, consistent with atelectasis, edema, or pneumonia. 2. 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 No hydronephrosis or nephrolithiasis. 3. 4.1 cm aneurysm of the distal abdominal aorta. No dissection or leak. No occlusion or stenosis. 4. No bowel thickening or inflammatory changes. No ileus or obstruction. No evidence of bowel ischemia. Radiation Dose CTDIVOL = (mGy): DLP = 1638.01 (mGy-cm)
[2019-07-11 18:16] LABS: Reflex Lactate Order REFLEX LACTIC ORDERD
[2019-07-11] MEDS: acetaminophen 650 mg Supp PR (18:24)
--- NOTE | 2019-07-11 18:41 | PC.NURSE ---
AFTER US PATIENT WAS TAKEN BACK TO CT
[2019-07-11] MEDS: iodixanol 320 mg/mL 100mL Btl 95 ML IV (18:51)
--- NOTE | 2019-07-11 19:20 | P.CONIM_ITS ---
Providers/Reason For Consult Consulting Physican/Specialty*: Dr. Vargas Reason for Consult*: Sepsis Attending Physician: Teresa Vargas DO History of Present Illness History of Present Illness Azam Mccabe is a 74 year old male with a known history of atrial fibrillation who brought to the ER for altered mental status. Apparently the patient had been doing well until yesterday afternoon but became more confused last night and has not been able to talk since then. As per the patient's he has not had any nausea, vomiting or bleeding per rectum. He has not complained of any abdominal pain in the last 24 to 48 hours. In the past he has occasionally complained of abdominal pain. He has never had a colonoscopy. Review of Systems General: Reports: ROS unobtainable due to mental status Meds/Allergies Home Medications and Allergies Home Medications Medication Instructions Recorded Confirmed Type acetaminophen [Acetaminophen Extra 500 mg PO QID PRN 07/11/19 07/11/19 History Strength] albuterol sulfate [ProAir HFA] 2 puff INHALATION QID 07/11/19 07/11/19 History allopurinol 100 mg PO DAILY 07/11/19 07/11/19 History budesonide-formoterol [Symbicort] 2 puff INHALATION BID 07/11/19 07/11/19 History colchicine 0.6 mg PO DAILY 07/11/19 07/11/19 History cyclobenzaprine 10 mg PO BEDTIME PRN 07/11/19 07/11/19 History glipizide 10 mg PO BID 07/11/19 07/11/19 History hydrochlorothiazide 25 mg PO DAILY 07/11/19 07/11/19 History hydrocodone-acetaminophen 1 tab PO QID PRN 07/11/19 07/11/19 History lisinopril 2.5 mg PO DAILY 07/11/19 07/11/19 History melatonin See Rx Instructions .ROUTE .COMPLEX 07/11/19 07/11/19 History sertraline See Rx Instructions .ROUTE .COMPLEX 07/11/19 07/11/19 History warfarin See Rx Instructions .ROUTE .COMPLEX 07/11/19 07/11/19 History Allergies Allergy/AdvReac Type Severity Reaction Status Date / Time Penicillins Allergy Unknown Verified 07/11/19 13:11 PFSH Acute PFSH: Medical History Abdominal aortic aneurysm Atrial fibrillation Diabetes mellitus Hypertension Peripheral vascular disease Surgical History History of herniorrhaphy History of orthopedic surgery Right shoulder Hx of cholecystectomy Family History Father CAD (coronary artery disease) Social History Smoking and tobacco status: former smoker Alcohol intake: current Alcohol intake frequency: few times a week Substance/Drug Use: never Vitals/I&O/Wt Last Vital Signs Temp 97.8 F 07/11/19 19:11 Pulse 120 H 07/11/19 19:11 Resp 20 H 07/11/19 19:11 BP 155/95 07/11/19 19:11 Pulse Ox 97 07/11/19 19:11 Weight last 48 hrs Weight 220 lb Physical Exam Narrative: EXAM NARRATIVE: HEENT: Normocephalic Eye: Sclera /conjunctiva normal Respiratory and chest: Bilateral clear breath sounds on auscultation Cardiovascular: Normal S1 and S2 heart sounds Abdomen: Soft to palpation, protuberant, no guarding or rigidity, well-healed midline scar with recurrent incisional hernia, incarcerated Neurological: Arousable Skin: Intact, Urinary Catheter Management^: Benson: Cath Placed During This Visit: yes Urethral Indwelling: Yes Reason for Continuing Indwelling Catheter: Accurate Measurement of Urinary Output in Critically Ill Patients Urinary Catheter Date of Insertion: 07/11/19 Urinary Catheter Time of Insertion: 14:34 A&P Assessment and plan (1) Sepsis: 74-year-old gentleman with altered mental status with leukocytosis slightly elevated lactate., His base deficit is -3. He had a CT abdomen pelvis which raised the possibility of ischemic bowel and a subsequent CTA confirmed n onspecific stranding around the horseshoe kidney but no evidence of ischemia. At present he is hemodynamically stable and clinically no evidence of peritonitis. Patient is being admitted to the ICU Benson catheter in place Continue IV Levaquin and Flagyl and therapeutic Lovenox Serial abdominal exam Serial lactate Status: Acute Code(s): A41.9 - Sepsis, unspecified organism Coding Level of Care Code Acute Wet Process Miller for [facility] Diagnoses Sepsis A41.9
[2019-07-11 19:38] LABS: Troponin 5 6HR 40.25 ng/mL (0-15)
[2019-07-11 19:47] LABS: Troponin 5 6HR Delta -1.75 ng/L (0-12)
--- NOTE | 2019-07-11 20:37 | PC.PHAR ---
Vancomycin is dosed at 1gm IVPB every 12 hours to produce a predicted trough level of 16.12 (population based pharmacokinetic analysis). A trough level has been ordered from the lab to be obtained before the fourth dose to confirm and adjust if needed.
[2019-07-11 20:39] LABS: Lactic Acid level (Lactate) 3.2 mmol/L (0.5-2.2)
[2019-07-11 20:49] LABS: Thyroid Stimulating Hormone 0.48 uIU/mL (0.27-4.20)
[2019-07-11 20:50] LABS: Ammonia 38 umol/L (16-60)
--- NOTE | 2019-07-11 21:05 | PC.ADMIT ---
[id number] Admission Note: The patient,Azam Mccabe,74 y/o, was given written information regarding hospital policies, unit procedures and contact persons. Patient's smoking status: former smoker. Vital Signs - 8 hr 07/11/19 15:39 07/11/19 19:03 07/11/19 19:11 Temperature 99.5 F 97.8 F Pulse Rate 124 H Pulse Rate [Monitor] 120 H Respiratory Rate 20 H Blood Pressure Blood Pressure [Right Arm] 132/104 155/95 Pulse Oximetry 95 98 97 07/11/19 19:15 07/11/19 19:30 07/11/19 19:45 Temperature Pulse Rate 121 H Pulse Rate [Monitor] Respiratory Rate Blood Pressure 155/95 108/86 135/93 Blood Pressure [Right Arm] Pulse Oximetry 95 07/11/19 20:00 07/11/19 20:15 07/11/19 20:19 Temperature 100.9 F H 100.9 F H Pulse Rate 118 H 118 H 118 H Pulse Rate [Monitor] Respiratory Rate 32 H 20 H 20 H Blood Pressure 147/94 148/118 129/98 Blood Pressure [Right Arm] Pulse Oximetry 92 87 L 07/11/19 20:30 07/11/19 20:45 07/11/19 21:00 Temperature Pulse Rate 111 H 103 H 111 H Pulse Rate [Monitor] Respiratory Rate 33 H 33 H 34 H Blood Pressure 101/83 101/83 143/78 Blood Pressure [Right Arm] Pulse Oximetry 90 91 93 rcvd pt from ed pt only says hi and smiles. pt at bedside answering most admit questions. pt family states new onset of confusion since yesterday. assessment per flowsheet. nidia lagunas bright yellow urine noted. pam santana.
[2019-07-11] MEDS: sodium chlor 0.9% + KCl 20 mEq 20 MEQ/1,000 ML BAG 100 MEQ IV (21:22)
[2019-07-11] MEDS: cefTRIAXone 2,000 MG in sodium chloride 0.9% (plus) 50 ML 100 MG IV (21:24)
[2019-07-11] MEDS: enoxaparin 100 mg/mL Syringe SUBCUT (21:24)
[2019-07-11] MEDS: vancomycin 1,000 MG in sodium chloride 0.9% 250 ML 250 MG IV (22:06)
[2019-07-12] VITALS (48 sets, daily range): BP systolic 83–167; BP diastolic 58–101; PULSE 70–124; RESP 10–49; TEMP 36.3–37.8; O2SAT 88–97; BMI 31.4
[2019-07-12] MEDS: morphine 4 mg/mL SDV 1 mL 2 MG IVP (01:49)
--- NOTE | 2019-07-12 04:36 | PC.NURSE ---
pt becoming more anxious attempting to get oob. temp 100.[address] jazzy lopez rcvd for precedex gtt titrate for sedation and bs swallow study then po tylenol pam santana.
[2019-07-12] MEDS: metroNIDAZOLE IV 500 MG/100 ML PREMIX 100 MG IV ×3 (05:10→21:14)
[2019-07-12 06:02] LABS: Basophils % 0.1 %; Hematocrit 36.5 % (42.0-52.0); Hemoglobin 12.3 g/dL (11.7-16.6); Lymphocytes % 5.8 %; Mean Corpuscular HGB Conc 33.7 g/dL (30.0-36.0); Mean Corpuscular Volume 97.9 fL (80-94); Mean Platelet Volume 10.9 fL (7.4-10.4); Monocytes # 1.7 10^3/uL (0.2-0.9); Monocytes % 9.9 %; Neutrophils # 14.6 10^3/uL (1.8-7.7); Neutrophils % 83.4 %; Nucleated Red Blood Cells % 0 %; Platelet Count 226 10^3/cmm (130-400); Red Blood Count 3.73 10^6/uL (4.1-5.3); Red Cell Distribution Width 12.5 % (12.1-15.1); White Blood Count 17.5 10^3/uL (4.0-10.0)
[2019-07-12 06:20] LABS: Alanine Aminotransferase 30 U/L (0-41); Albumin Level 3.1 g/dL (3.5-5.2); Alkaline Phosphatase 69 IU/L (40-130); Anion Gap 17.7 (5-19); Aspartate Amino Transferase 28 U/L (0-40); Blood Urea Nitrogen 16 mg/dL (8-23); Calcium 8.6 mg/dL (8.5-10.5); Carbon Dioxide 23 mmol/L (22-29); Chloride 102 mmol/L (98-107); Globulin 3.7 g/dL (1.3-4.6); Glucose 250 mg/dL (65-115); Potassium 3.7 mmol/L (3.5-5.1); Sodium 139 mmol/L (136-145); Total Bilirubin 0.9 mg/dL (0.15-1.2); Total Protein 6.8 g/dL (6.6-8.7)
[2019-07-12 08:08] LABS: Glucose Point of Care 222 mg/dL (70-110)
[2019-07-12 08:36] LABS: Glucose Point of Care 215 mg/dL (70-110)
--- NOTE | 2019-07-12 09:09 | PC.NURSE ---
Turned Presidex down to 0.5mcg at 0835. AT 0905 spoke and tapped shoulder patient, he woke up wide eyed, looking frantically around, and I was unable to understand his speech. He settled back down within a couple minutes. A family member at bedside. A sitter at bedside.
[2019-07-12] MEDS: sodium chlor 0.9% + KCl 20 mEq 20 MEQ/1,000 ML BAG 100 MEQ IV ×2 (10:15→23:51)
[2019-07-12] MEDS: enoxaparin 100 mg/mL Syringe SUBCUT ×2 (10:25→19:52)
[2019-07-12] MEDS: vancomycin 1,000 MG in sodium chloride 0.9% 250 ML 250 MG IV (10:27)
--- NOTE | 2019-07-12 11:40 | PM.PN ---
Subjective Subjective: Interval history: Patient sleeping in bed at time of exam this morning. Placed on Precedex overnight due to him becoming agitated. Family member at bedside, discussed with patient's and updated her on labs and current plan of care. She denied any concerns or questions. Discussed care with RN, reported that heart rate is been controlled, discussed plan to wean Precedex Vitals/I&O/Wt Last Vital Signs Temp 100.0 F H 07/12/19 06:00 Pulse 74 07/12/19 08:30 Resp 28 H 07/12/19 08:30 BP 83/65 07/12/19 08:30 Pulse Ox 93 07/12/19 08:30 07/11/19 07/12/19 07/12/19 22:59 06:59 14:59 Intake Total 50 / 50 250 / 300 1100 / 1100 Output Total 1100 / 1100 Balance 50 / 50 -850 / -800 1100 / 1100 Weight last 48 hrs Weight 105.324 kg Weight 99.79 kg Physical Exam Const: OTHER: Sedated on Precedex at time of exam HENMT: COMMON NORMALS: normocephalic and head/scalp atraumatic HEAD & SCALP: normocephalic and atraumatic Eye: COMMON NORMALS: PERRL PUPIL: Yes PERRL Neck/C-Spine: COMMON NORMALS: supple GENERAL: Yes normal visual inspection Resp: OTHER: Respirations even and unlabored, lungs clear auscultation without wheezing or rhonchi Cardio: OTHER: Irregularly irregular, systolic murmur GI: OTHER: Hypoactive bowel sounds, no guarding or rigidity today, no appreciable tenderness to palpation Extremity: COMMON NORMALS: no clubbing, cyanosis or edema and no calf tenderness Neuro: OTHER: Sedated Urinary Catheter Management^: Benson: Cath Placed During This Visit: yes Urethral Indwelling: Yes Reason for Continuing Indwelling Catheter: Accurate Measurement of Urinary Output in Critically Ill Patients Urinary Catheter Date of Insertion: 07/11/19 Urinary Catheter Time of Insertion: 14:34 Data : 07/12/19 05:46 07/12/19 05:46 A&P Assessment and plan (1) Acute encephalopathy: Patient was reported to have agitation overnight and placed on Precedex, will continue to wean off today and continue to assess neurologic status closely Concern for encephalopathy related to sepsis. 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 Ingram, general surgeon Status: Acute Code(s): R10.9 - Unspecified abdominal pain (5) Abdominal aortic aneurysm: Known, without acute change Status: Acute Code(s): I71.4 - Abdominal aortic aneurysm, without rupture (6) Atrial fibrillation: Remains rate controlled. Known atrial fibrillation on chronic anticoagulation with coumadin, holding coumadin and on treatment dose lovenox metoprolol 12.5mg BID Status: Acute Code(s): I48.91 - Unspecified atrial fibrillation (7) Hypertension: Hold home lisinopril and continue to monitor blood pressure closely, hypotensive at this time Status: Acute Code(s): I10 - Essential (primary) hypertension Additional A&P Information Leukocytosis: Secondary to above Systolic murmur: Echocardiogram moderate aortic stenosis Diabetes mellitus type 2: Continue on sliding scale insulin at this time Chronic anticoagulation: Holding home Coumadin and placed on treatment dose Lovenox Dehydration with hyponatremia and hypochloremia: Improved, continue gentle IVF Hyperbilirubinemia: Resolved Horseshoe kidney DVT prophylaxis: On treatment dose Lovenox due to concern for atrial fibrillation Diet: N.p.o. CODE STATUS: Full code Continue with antibiotic coverage, will follow up with general surgery recommendations today. Will wean Precedex and monitor patient neurologic status. Physical therapy, occupational therapy and speech therapy ordered. Attestations Medical Necessity Statement*: Patient requires continued hospitalization due to acute encephalopathy, sepsis, atrial fibrillation Coding Level of Care Code Acute Fire Fighter for [facility] Diagnoses Acute encephalopathy G93.40 Sepsis A41.9 Transaminitis R74.0 Abdominal pain R10.9 Abdominal aortic aneurysm I71.4 Atrial fibrillation I48.91 Hypertension I10
[2019-07-12] MEDS: LORazepam 2 mg/mL INJ 1 mL IVP ×3 (12:52→19:52)
[2019-07-12] MEDS: levofloxacin-dextrose 5 % 750 MG/150 ML PREMIX 150 MG IV (13:08)
--- NOTE | 2019-07-12 13:38 | P.PN_ITS ---
Subjective Subjective: Interval history: Patient was confused last night, requiring Precedex but is more awake today. No abdominal pain, nausea, vomiting bleeding per rectum Medications: Reviewed: Yes Vitals/I&O/Wt Last Vital Signs Temp 97.4 F L 07/12/19 12:00 Pulse 110 H 07/12/19 12:00 Resp 21 H 07/12/19 12:00 BP 118/86 07/12/19 12:00 Pulse Ox 80 L 07/12/19 12:00 07/11/19 07/12/19 07/12/19 22:59 06:59 14:59 Intake Total 50 / 300 250 / 300 1100 / 1100 Output Total 1100 / 1100 Balance 50 / -800 -850 / -800 1100 / 1100 Weight last 48 hrs Weight 232 lb 3.2 oz Weight 220 lb Physical Exam Narrative: EXAM NARRATIVE: Abdomen: Soft, nontender, nondistended, evidence of peritonitis, has a chronic incarcerated hernia containing omentum Urinary Catheter Management^: Benson: Cath Placed During This Visit: yes Urethral Indwelling: Yes Reason for Continuing Indwelling Catheter: Accurate Measurement of Urinary Output in Critically Ill Patients Urinary Catheter Date of Insertion: 07/11/19 Urinary Catheter Time of Insertion: 14:34 Data : 07/12/19 05:46 07/12/19 05:46 A&P Assessment and plan (1) Sepsis: 74 year whose family now now gives a history of of drinking 8-9 beers a day who presented with altered mental status. Clinically no evidence of peritonitis. CTA negative for ischemic bowel. White count is down to 17. Abdomen is unlikely the source of his sepsis.. Advance diet as tolerated. Status: Acute Code(s): A41.9 - Sepsis, unspecified organism Attestations Medical Necessity Statement*: Sepsis requiring continued ICU and hospital stay Coding Level of Care Code Acute Customer Success Advocate for [facility] Diagnoses Sepsis A41.9
[2019-07-12 14:02] LABS: INR 1.75 (0.8-1.2)
--- NOTE | 2019-07-12 14:15 | PC.OT ---
OT EVALUATION ATTEMPTED. PER NURSING, PATIENT IS STILL AGITATED AND WOULD LIKE THERAPY HELD UNTIL TOMORROW.
[2019-07-12 14:40] LABS: Estmated Average Glucose 160; Hemoglobin A1C 7.2 % (4.0-6.0)
[2019-07-12] MEDS: lisinopril 5 mg Tablet 2.5 MG PO (15:53)
--- NOTE | 2019-07-12 16:41 | PC.PT ---
Attempted PT evaluation on hold secondary to patient and agitated state, still has one-on-one sitter, BP 162/120, RHR 127; will reattempt tomorrow
[2019-07-12] MEDS: hyDRALAzine 20 mg/mL INJ 1 mL 10 MG IVP (17:56)
[2019-07-12] MEDS: metoprolol tartrate 25 mg Tablet 12.5 MG PO (18:07)
[2019-07-12 18:25] LABS: Glucose Point of Care 163 mg/dL (70-110)
[2019-07-12 18:25] LABS: Glucose Point of Care 160 mg/dL (70-110)
--- NOTE | 2019-07-12 20:30 | PC.NURSE ---
Pt agitated and restless, respiration rate 40+ with labored abd breathing and grunting. HR AFIb c RVR rate 120-140's, hypertensive. Physician call to bedside, daughter at bedside.
[2019-07-12 21:03] LABS: Glucose Point of Care 151 mg/dL (70-110)
[2019-07-12 21:03] LABS: Glucose Point of Care 148 mg/dL (70-110)
--- NOTE | 2019-07-12 21:08 | XR_ITS ---
WS: [id number] XR chest 1V portable [id number] REASON FOR EXAM: Resp Distress FINDINGS: The projections as marked suggests dextrocardia. There is arteriosclerotic changes in the arch of the aorta. On previous exam this was not seen eviden tly the projections are mismarked. The nodular densities now have resolved suggesting resolution of the edema changes both lung rhodes. There is no definite pneumonia seen. In the left lung base appears to be a small amount of pleural effusion. XR/XR chest 1V portable [id number] IMPRESSION: Small amount of pleural effusion right lung base The films appear to be miss marked right to left The pulmonary edema changes suggesting inflammatory changes have resolved.
[2019-07-12] MEDS: FUROsemide 10 mg/mL SDV 4mL 40 MG IVP (21:14)
[2019-07-12 21:16] LABS: ABG PCO2 33.6 mmHg (35-45); ABG PH Result 7.45 (7.35-7.45); Arterial Blood Gas Hematocrit 42.4 % (42-52); Blood Gas Allen Test Pos; Blood Gas Sample Site Radial, right; Blood Gas Sample Type Arterial; HCO3 ABG 23.4 mmol/L (22-26); Oxygen Device NC
--- NOTE | 2019-07-12 21:40 | PM.EVENT ---
Event Note Event Note: respiratory distress, increased agitation Asked to assess patient due to tachypnea with RR 40, HR 130, BP 150/110, abdominal breathing and concern for respiratory fatigue. On exam, patient is awake, disoriented, confused, pulling at his catheter and lines, attempting to get out of bed.He has been getting Ativan per [facility] protocol however this has not been helping. Opens eyes to calling name, however unable to follow other commands. Per daughter at bedside, this has been gradually worsening since this evening. He has remained confused, intermittently swearing but has not formed a meaningful sentence to her knowledge. He has audible wheezing upon entering the room. B/L infraaxillary crepts are heard. Last echo from 2011 with EF 60%, PASP 47 corelating with mild pulm HTN, left ventricular diastolic relaxation abnormailty, mild biatrial enlargement. I/O net neutral. WT 99<--105, but unsure of accuracy <24 hrs apart. He has a h/o COPD, daughter reports being on 6 inhalers at home but does not know names. Also advised to undergo sleep study for concern of sleep apnea, but not done. Plan: Stat ABG, CXR, Duoneb nebulization, solumedrol 125mg iv and lasix 40mg iv Bipap prn for night time use restart precedex at 0.5 Worsening encephalopathy from sepsis cannot be excluded, change levaquin to cefepime (tolerated CTX yesterday, per daughter no h/o anaphylaxis with PCN, though exact reaction not known). Continue vancomycin and flagyl. Will add ACV 10mg/kg for overnight due to concern for meningitis, however this will need to be reassessed in the am as I am unsure how his mental status has trended since admission. Event Notes Attestations Time Spent in Patient Care: 16 - 35 minutes
[2019-07-12 22:55] LABS: NT Pro B Type Natriuretic Pept 4138 pg/mL (0-125)
--- NOTE | 2019-07-12 23:31 | PC.NURSE ---
Pt resting with precedex gtt at 0.5. RR @ 36 bpm, sating 97% on 2L. Bipap applied for comfort. Physician notied of BNP and urinary output.
[2019-07-12] MEDS: ipratropium-albuterol 3 mL Neb INHALATION (23:37)
[2019-07-13] VITALS (25 sets, daily range): BP systolic 96–149; BP diastolic 65–93; PULSE 60–116; RESP 15–38; TEMP 36.7–37.3; O2SAT 90–97
[2019-07-13] MEDS: cefepime 2,000 MG in sodium chloride 0.9% (plus) 50 ML 100 MG IV ×2 (02:34→11:34)
[2019-07-13] MEDS: ipratropium-albuterol 3 mL Neb INHALATION ×6 (04:09→20:25)
[2019-07-13 04:55] LABS: Basophils % 0.1 %; Hematocrit 40.5 % (42.0-52.0); Lymphocytes # 0.6 10^3/uL (0.8-4.8); Lymphocytes % 5.8 %; Mean Corpuscular HGB Conc 32.1 g/dL (30.0-36.0); Mean Corpuscular Hemoglobin 33.1 pg (28.0-34.0); Mean Corpuscular Volume 103.1 fL (80-94); Mean Platelet Volume 10.7 fL (7.4-10.4); Monocytes # 0.3 10^3/uL (0.2-0.9); Monocytes % 3.2 %; Neutrophils # 9.3 10^3/uL (1.8-7.7); Neutrophils % 90.2 %; Nucleated Red Blood Cells % 0 %; Platelet Count 219 10^3/cmm (130-400); Red Blood Count 3.93 10^6/uL (4.1-5.3); Red Cell Distribution Width 12.8 % (12.1-15.1); White Blood Count 10.3 10^3/uL (4.0-10.0)
--- NOTE | 2019-07-13 05:09 | PC.NURSE ---
Pt easily awakens this morning and is calm. Pt follows some command - log getter equal, able to move bilateral feet/toes. Pt winces and shakes head when left lower abd palpated. RR 26 w/o s/s of distress on bipap 28% 16/8. HR 93 AFib and 131/95. Precedex gtt at 0.2.
[2019-07-13 05:13] LABS: Alanine Aminotransferase 27 U/L (0-41); Albumin Level 2.7 g/dL (3.5-5.2); Alkaline Phosphatase 77 IU/L (40-130); Anion Gap 17.2 (5-19); Aspartate Amino Transferase 28 U/L (0-40); Blood Urea Nitrogen 25 mg/dL (8-23); Calcium 8.4 mg/dL (8.5-10.5); Carbon Dioxide 20 mmol/L (22-29); Chloride 107 mmol/L (98-107); Globulin 4.2 g/dL (1.3-4.6); Glucose 277 mg/dL (65-115); Potassium 4.2 mmol/L (3.5-5.1); Sodium 140 mmol/L (136-145); Total Bilirubin 0.7 mg/dL (0.15-1.2); Total Protein 6.9 g/dL (6.6-8.7)
[2019-07-13] MEDS: metroNIDAZOLE IV 500 MG/100 ML PREMIX 100 MG IV ×3 (06:09→22:31)
[2019-07-13] MEDS: budesonide 0.5 mg/2 mL Neb INHALATION ×2 (08:00→20:25)
[2019-07-13] MEDS: folic acid 1 mg Tablet PO (08:16)
[2019-07-13] MEDS: enoxaparin 100 mg/mL Syringe SUBCUT ×2 (08:16→19:47)
[2019-07-13] MEDS: lisinopril 5 mg Tablet 2.5 MG PO (08:17)
[2019-07-13] MEDS: thiamine 100 mg Tablet PO (08:17)
[2019-07-13] MEDS: metoprolol tartrate 25 mg Tablet 12.5 MG PO (08:17)
[2019-07-13] MEDS: multivitamin therapeutic Tablet 1 TAB PO (08:17)
--- NOTE | 2019-07-13 08:25 | XR_ITS ---
WS: [id number] XR KUB portable [id number] REASON FOR EXAM: RLQ abd pain FINDINGS: In the mid abdomen there is evidence of dilated small bowel loops suggesting a ileus. In the right lower quadrant of the abdomen there is no localization seen. No definite stones in the kidneys ureter bladder area. There is calcification of both iliac arteries. XR/XR KUB portable [id number] IMPRESSION: Low-grade mid abdominal ileus changes.
--- NOTE | 2019-07-13 08:31 | PM.PN ---
Subjective Subjective: Interval history: Patient reported to have restless night and tachypnea was placed on BiPAP given Lasix, Solu-Medrol, antibiotic coverage broadened and started on antivirals. Patient is awake and alert at time of exam this morning. He reports that he is feeling fine and denies any concerns. Reported some slight discomfort in the right lower quadrant of his abdomen. He denies any headache or vision changes, denies any chest pain or shortness of breath. Patient's daughter, Gi, was at bedside and reported that patient had recently went to visit her in [place] and traveled back on Tuesday of this week. She reported that he had been slightly more fatigued over the weekend but no fever or concerns. She stated that he attended a [employer] festival and typically goes out with friends. She reported that he appears to be back to his baseline this morning, was confused some last night. Of note yesterday it was reported to nursing that patient was drinking alcohol daily, approximately 9 beers per day, therefore patient was started on CIWA protocol. Medications: Reviewed: Yes Vitals/I&O/Wt Last Vital Signs Temp 99.2 F 07/13/19 04:00 Pulse 103 H 07/13/19 08:09 Resp 18 07/13/19 08:01 BP 104/74 07/13/19 04:00 Pulse Ox 96 07/13/19 08:01 07/12/19 07/13/19 07/13/19 22:59 06:59 14:59 Intake Total 1150 / 2454 578.630 / 3032.630 Output Total 2200 / 2200 900 / 3100 Balance -1050 / 254 -321.370 / -67.370 Weight last 48 hrs Weight 103.827 kg Weight 105.324 kg Weight 99.79 kg Physical Exam Const: COMMON NORMALS: oriented x3 and alert GENERAL APPEARANCE: cooperative ORIENTATION/CONSCIOUSNESS: Yes awake, Yes oriented to person, Yes oriented to place and Yes oriented to time HENMT: COMMON NORMALS: normocephalic and head/scalp atraumatic HEAD & SCALP: normocephalic and atraumatic Eye: COMMON NORMALS: PERRL PUPIL: Yes PERRL Neck/C-Spine: COMMON NORMALS: supple and no meningeal signs GENERAL: Yes normal visual inspection Resp: OTHER: Oxygen by nasal cannula in place, prolonged expiratory phase with end expiratory wheezing worse on the right, no appreciable rhonchi Cardio: OTHER: Irregularly irregular, systolic murmur GI: COMMON NORMALS: soft to palpation INSPECTION: No abdominal distension PALPATION: Yes soft OTHER: Improved bowel sounds today, mild tenderness to palpation in the right lower quadrant, no guarding or rigidity Extremity: COMMON NORMALS: no clubbing, cyanosis or edema and no calf tenderness Neuro: COMMON NORMALS: oriented x3, CN's II-XII intact bilaterally, moves all extremities and no focal motor deficits SENSORIUM/ORIENTATION: Yes alert, Yes oriented to person, Yes oriented to place and Yes oriented to time MENINGEAL SIGNS: Yes no meningeal signs SPEECH: speech normal Psych: COMMON NORMALS: mental status grossly normal and cooperative Skin: OTHER: Patient does have some erythema on the posterior calf on the right leg Urinary Catheter Management^: Benson: Cath Placed During This Visit: yes Urethral Indwelling: Yes Reason for Continuing Indwelling Catheter: Accurate Measurement of Urinary Output in Critically Ill Patients Urinary Catheter Date of Insertion: 07/11/19 Urinary Catheter Time of Insertion: 14:34 Data : 07/13/19 04:40 07/13/19 04:40 Micro: Microbiology 07/12/19 15:43 Blood Culture - Preliminary Blood SPECIMEN COLLECTED 07/12/19 15:46 Blood Culture - Preliminary Blood SPECIMEN COLLECTED A&P Assessment and plan (1) Acute encephalopathy: Acute encephalopathy has improved today, patient able to provide his name, location and putting together complete sentences. He was able to tell me that he recently went to a [employer] last weekend with his daughter in [place]. Patient's daughter was able to verify this information upon her arrival. Family reported yesterday to nursing that patient was drinking alcohol daily, he was therefore placed on CIWA protocol with Ativan Patient did have some issues with agitation and increased confusion reported last night, started again on Precedex. He is awake, alert and oriented x3 this morning. Patient started on acyclovir overnight due to these concerns, however patient has continued to gradually improve, no meningeal signs and no high suspicion for meningitis, therefore will discontinue acyclovir Status: Acute Code(s): G93.40 - Encephalopathy, unspecified (2) Sepsis: Sepsis with unknown source Unable to obtain LP on admission due to patient unable to sit still and being on home coumadin. no meningeal signs, therefore will de-escalate antibiotic coverage and discontinue acyclovir Blood culture ordered and pending Question of intra-abdominal pathology contributing to his symptoms on admission. Patient has only complaint of vague right lower quadrant abdominal pain. Will obtain KUB to further evaluate today and consider further imaging if indicated. We will continue on antibiotic coverage. Patient had antibiotic coverage broadened overnight to include vancomycin, cefepime, Flagyl, also started on acyclovir overnight. As above due to patient not having any meningeal signs and no concern for meningitis will discontinue acyclovir, discontinue vancomycin and continue on Cefepime and Flagyl. Status: Acute Code(s): A41.9 - Sepsis, unspecified organism (3) Transaminitis: Resolved No appreciable tenderness to palpation today Following admission it was reported that patient drinks alcohol daily Status: Acute Code(s): R74.0 - Nonspecific elevation of levels of transaminase and lactic acid dehydrogenase [LDH] (4) Abdominal pain: KUB ordered for today Patient's only concern at this time is vague right lower quadrant abdominal discomfort Status: Acute Code(s): R10.9 - Unspecified abdominal pain (5) Abdominal aortic aneurysm: Known, without acute change Status: Acute Code(s): I71.4 - Abdominal aortic aneurysm, without rupture (6) Atrial fibrillation: Rate controlled this morning with rate in the 80s, continue on treatment dose Lovenox, holding home Coumadin Started on metoprolol 12.5 mg twice daily Status: Acute Code(s): I48.91 - Unspecified atrial fibrillation (7) Hypertension: Lisinopril had previously been on hold, now restarted at 2.5 mg daily, will continue to monitor blood pressure closely Status: Acute Code(s): I10 - Essential (primary) hypertension Additional A&P Information Concern overnight for atrial fibrillation with RVR: Now rate improved and heart rate in the 80s this morning, plan as above Concern for fluid overload last night and patient was tachypneic with concern for acute respiratory distress, given IV Lasix x1, appears to be euvolemic at this time, echocardiogram performed this admission shows moderate aortic stenosis, pulmonary hypertension, LVEF of 55% Moderate aortic stenosis Diabetes mellitus type 2: Continue on sliding scale insulin at this time Chronic anticoagulation: Holding home Coumadin and placed on treatment dose Lovenox Horseshoe kidney: With some question of perinephric stranding on imaging, however UA without any evidence of urinary tract infection, patient did have 750 mL of urinary retention on admission to the ER on arrival DVT prophylaxis: On treatment dose Lovenox due to concern for atrial fibrillation Diet: Ice chips and sips of water, gradually increase as tolerated CODE STATUS: Full code Attestations Medical Necessity Statement*: Patient requires continued hospitalization is due to her acute encephalopathy, sepsis, abdominal pain, atrial fibrillation Coding Level of Care Code Acute Executive Assistant To President for [facility] Diagnoses Acute encephalopathy G93.40 Sepsis A41.9 Transaminitis R74.0 Abdominal pain R10.9 Abdominal aortic aneurysm I71.4 Atrial fibrillation I48.91 Hypertension I10
--- NOTE | 2019-07-13 08:40 | USCV_ITS ---
Azam Mccabe Age: 74 Gender: M : 1945 Exam Date: 07/13/2019 09:03 Ordering Phys: Teresa Vargas DO Technologist: Jacquelin Gaxiola [place] [facility] [place]: ERYTHEMA, RECENT TRAVEL PROCEDURES: Venous duplex imaging was performed in only the right lower extremity. The following venous structures were evaluated: common femoral vein, profunda vein, proximal portion of the greater saphenous vein, superficial femoral vein, and the popliteal vein. In addition, the posterior tibial and peroneal trunk were evaluated. FINDINGS: Normal 2-D Doppler and augmentation and compressibility throughout the lower extremity venous structures. Additional imaging through the proximal calf veins also reveals no thrombus. Limited evaluation of the greater saphenous vein is patent with no thrombus.. CONCLUSIONS No evidence of right lower extremity DVT. Tyree Abebe MD (Electronically Signed) Final Date: 13 July 2019 09:47 S
--- NOTE | 2019-07-13 10:28 | PC.CHAP ---
Pastoral Care Encounter/Spiritual Assessment Type of Contact [] Declined marine structural designer visit [] Patient/Family/Request visit [] Outpatient visit [] Follow-up visit [] Physician referral [] Code/Alert [x] Routine visit [] Staff referral [] Actively dying [] Patient sleeping [x] Family support [] [] Out of room [] Palliative care [] [] Receiving care in room [] Pre-surgical visit [] Trauma [] Long length of stay [x] ICU visit [] Other: Relational/Emotional Strength [] Patient feels connected with others/family/visitors/staff [] Distress [] Loneliness/isolation [] Abandonment Spirituality of Patient [x] Person of Christina [x] Attends Episcopalian of their [place] [x] Believes in Prayer [] Reads Bible or Denominational materials [] There are Spiritual issues to be addressed Train Examiner Interventions [x] Prayer [] Active listening [] Non-anxious presence [] Spiritual/emotional support [] Crisis/trauma care [] Spiritual counseling [] Bereavement support [] Provided bereavement packet [] Provided Bible/devotional materials [] Provided toy/stuffed animal, coloring book to patient or family member [] Provided Communion [] Anointing/[place] [] Salvation [x] Completed spiritual assessment [] Other: Impact on Illness or Injury [] Angry [] Fearful [] Anxious [] Often cries [] Exhaustion [] Unable to work [] Unable to attend latter day [] Unable to walk/stand [] Unable to read [] Unable to drive [] Unable to eat/drink [] Unable to sleep [] Unable to be with family [] Patient intubated [] Other: Summary Patient resting well. Family present in patient's room Time spent with patient 15min
[2019-07-13] MEDS: predniSONE 20 mg Tablet 40 MG PO (11:35)
[2019-07-13] MEDS: eucerin cream 113 gm Jar 1 APPLIC TOPICAL (15:44)
[2019-07-13] MEDS: morphine 4 mg/mL SDV 1 mL 2 MG IVP (15:55)
[2019-07-13 17:33] LABS: Glucose Point of Care 206 mg/dL (70-110)
[2019-07-13 17:33] LABS: Glucose Point of Care 252 mg/dL (70-110)
[2019-07-13 17:33] LABS: Glucose Point of Care 262 mg/dL (70-110)
[2019-07-13 19:44] LABS: Vancomycin Trough 7.7 ug/mL (10-15)
[2019-07-13] MEDS: metoprolol tartrate 25 mg Tablet PO (19:47)
--- NOTE | 2019-07-13 20:21 | PC.NURSE ---
Pt alert and oriented to situation. Pt states he is weak, but otherwise feels much better. is at bedside. HR 105 B/P 105/85 95% on RA, no resp distress at this time. Lungs clear, no peripheral swellings. Report called to Marco on [facility].
[2019-07-13 21:23] LABS: Glucose Point of Care 289 mg/dL (70-110)
--- NOTE | 2019-07-13 21:37 | PC.NURSE ---
Pt voided 200 ml after urinary catheter was discontinued.
[2019-07-13] MEDS: HYDROcodone-acetaminophen 10-325 mg Tablet 1 TAB PO (22:30)
[2019-07-13] MEDS: cyclobenzaprine 10 mg Tablet PO (22:30)
[2019-07-14] VITALS (22 sets, daily range): BP systolic 95–176; BP diastolic 60–96; PULSE 58–118; RESP 16–18; TEMP 36.3–37; O2SAT 91–97
[2019-07-14] MEDS: ipratropium-albuterol 3 mL Neb INHALATION ×7 (00:38→23:11)
[2019-07-14] MEDS: cefepime 2,000 MG in sodium chloride 0.9% (plus) 50 ML 50 MG IV (02:50)
[2019-07-14 05:40] LABS: Basophils % 0.1 %; Eosinophils % 0.1 %; Hematocrit 41.5 % (42.0-52.0); Hemoglobin 13.7 g/dL (11.7-16.6); Lymphocytes # 1.7 10^3/uL (0.8-4.8); Lymphocytes % 12.9 %; Mean Corpuscular Hemoglobin 34.1 pg (28.0-34.0); Mean Corpuscular Volume 103.2 fL (80-94); Mean Platelet Volume 10.7 fL (7.4-10.4); Monocytes % 7.9 %; Neutrophils # 10.2 10^3/uL (1.8-7.7); Neutrophils % 78.3 %; Nucleated Red Blood Cells % 0 %; Platelet Count 269 10^3/cmm (130-400); Red Blood Count 4.02 10^6/uL (4.1-5.3); Red Cell Distribution Width 12.9 % (12.1-15.1)
[2019-07-14 05:53] LABS: INR 1.46 (0.8-1.2)
[2019-07-14 06:04] LABS: Alanine Aminotransferase 42 U/L (0-41); Albumin Level 2.9 g/dL (3.5-5.2); Alkaline Phosphatase 91 IU/L (40-130); Anion Gap 17.2 (5-19); Aspartate Amino Transferase 59 U/L (0-40); Blood Urea Nitrogen 19 mg/dL (8-23); Calcium 8.7 mg/dL (8.5-10.5); Carbon Dioxide 24 mmol/L (22-29); Chloride 99 mmol/L (98-107); Globulin 4.1 g/dL (1.3-4.6); Glucose 193 mg/dL (65-115); Potassium 3.2 mmol/L (3.5-5.1); Sodium 137 mmol/L (136-145)
[2019-07-14] MEDS: HYDROcodone-acetaminophen 10-325 mg Tablet 1 TAB PO ×2 (06:31→16:07)
[2019-07-14] MEDS: metroNIDAZOLE IV 500 MG/100 ML PREMIX 100 MG IV (06:32)
[2019-07-14 06:58] LABS: Glucose Point of Care 179 mg/dL (70-110)
--- NOTE | 2019-07-14 07:05 | PC.NURSE ---
Throughout the night, there was no need for a 1:1 sitter. Patient's was with pt at bedside throughout the night, and the patient never tried to get up or pull on any lines. Martha WADE
[2019-07-14] MEDS: budesonide 0.5 mg/2 mL Neb INHALATION (07:53)
[2019-07-14] MEDS: multivitamin therapeutic Tablet 1 TAB PO (08:39)
[2019-07-14] MEDS: enoxaparin 100 mg/mL Syringe SUBCUT ×2 (08:40→20:25)
[2019-07-14] MEDS: sertraline 100 mg Tablet 150 MG PO (08:40)
[2019-07-14] MEDS: folic acid 1 mg Tablet PO (08:40)
[2019-07-14] MEDS: predniSONE 20 mg Tablet 40 MG PO (08:40)
[2019-07-14] MEDS: thiamine 100 mg Tablet PO (08:40)
--- NOTE | 2019-07-14 08:45 | PM.PN ---
Subjective Subjective: Interval history: Chart reviewed, had 950 mL urine output overnight. Slight increase in leukocytosis and LFTs. VSS. Patient did well overnight with no need for sitter. Family member at bedside, patient resting in bed, states he cannot get comfortable due to low back pain. Requesting senna as a laxative and pain meds. Is alert, conversant, oriented. Benson catheter already discontinued. Medications: Reviewed: Yes Medication Review Details: Active Medications Generic Name Dose Route Start Last Admin Trade Name Freq PRN Reason Stop Dose Admin Acetaminophen 650 mg 07/11/19 20:19 Tylenol PO Q6H PRN Mild/Mod Pain Or Temp >/= 101 Hydrocodone Bitart /Acetaminophen 1 tab 07/13/19 21:08 07/14/19 06:31 [place] 10-325 Mg PO 1 tab QID PRN Administration Pain Albuterol Sulfate 2 puff 07/13/19 21:08 07/14/19 00:37 Ventolin INHALATION Not Given QID DAVID Albuterol/Ipratrop ium 3 ml 07/13/19 16:00 07/14/19 07:53 Duoneb INHALATION 3 ml Q4H.RESPIRATORY S CH Administration Budesonide 0.5 mg 07/13/19 08:00 07/14/19 07:53 Pulmicort INHALATION 0.5 mg BID.RESPIRATORY S CH Administration Cyclobenzaprine HC l 10 mg 07/13/19 21:08 07/13/19 22:30 Flexeril PO 10 mg BEDTIME PRN Administration Spasms Dextrose 25 ml 07/11/19 20:19 D50w IVP ONCE PRN hypoglycemia prot ocol Protocol Dextrose 50 ml 07/11/19 20:19 D50w IVP PRN PRN hypoglycemia prot ocol Protocol Enoxaparin Sodium 100 mg 07/11/19 20:19 07/14/19 08:40 Lovenox 1 mg/kg (100 mg) 100 mg SUBCUT Administration Q12H DAVID Folic Acid 1 mg 07/13/19 09:00 07/14/19 08:40 Folic Acid PO 1 mg DAILY DAVID Administration Glucagon 1 mg 07/11/19 20:19 Glucagen IM ONCE PRN Adult Acute Hypog lycemia Prot. Protocol Hydralazine HCl 10 mg 07/12/19 15:25 07/12/19 17:56 Apresoline IVP 10 mg Q4H PRN Administration SBP>160 or DBP>11 0 Dextrose 500 mls @ 100 mls /hr 07/11/19 20:19 D5w IV ONCE PRN Adult Acute Hypog lycemia Prot Protocol Metronidazole 500 mg in 100 mls @ 100 mls/hr 07/12/19 05:00 07/14/19 06:32 Flagyl Iv IV 100 mls/hr Q8H DAVID Administration Protocol Cefepime HCl 2,000 mg/ Sodium 50 mls @ 100 mls/ hr 07/12/19 22:15 07/14/19 02:50 Chloride IV 50 mls/hr Q12H DAVID Administration Protocol Insulin Aspart 0 unit 07/11/19 20:19 07/14/19 08:40 Novolog SUBCUT 4 unit TIDWM DAVID Administration Protocol Insulin Aspart 0 unit 07/13/19 22:00 07/13/19 22:32 Novolog SUBCUT 10 unit BEDTIME DAVID Administration Protocol Lisinopril 2.5 mg 07/12/19 09:00 07/13/19 08:17 Prinivil PO 2.5 mg DAILY DAVID Administration Lorazepam 2 mg 07/12/19 12:20 Ativan IM Q4H PRN ALCOWD Protocol Lorazepam 2 mg 07/12/19 12:20 07/12/19 19:52 Ativan IVP 2 mg PRN PRN Administration WITHDRAWAL Protocol Lorazepam 2 mg 07/12/19 12:20 Ativan PO Q4H PRN WITHDRAWAL Protocol Metoprolol Tartrat e 25 mg 07/13/19 20:00 07/13/19 19:47 Lopressor PO 25 mg Q12H DAVID Administration Morphine Sulfate 2 mg 07/11/19 20:19 07/13/19 15:55 Morphine IVP 2 mg Q4H PRN Administration SEVERE PAIN Multi-Ingredient O intment 1 applic 07/13/19 14:38 07/13/19 15:44 Eucerin TOPICAL 1 applic PRN PRN Administration DRYNESS Multivitamins Ther apeutic 1 tab 07/13/19 09:00 07/14/19 08:39 Multivitamin Tab PO 1 tab DAILY DAVID Administration Naloxone HCl 0.1 mg 07/11/19 20:19 Narcan IVP Q2M PRN OPIATERV Ondansetron HCl 4 mg 07/11/19 20:19 Zofran IVP Q8H PRN vomiting, or N/V if npo Prednisone 40 mg 07/13/19 09:00 07/14/19 08:40 Prednisone PO 40 mg DAILY DAVID Administration Fluticasone/Salmet paris 1 puff 07/14/19 05:45 07/14/19 07:53 Advair Diskus 25 0-50 INHALATION 1 puff BID.RESPIRATORY S CH Administration Sertraline HCl 150 mg 07/14/19 09:00 07/14/19 08:40 Zoloft PO 150 mg DAILY DAVID Administration Thiamine Mononitra te 100 mg 07/13/19 09:00 07/14/19 08:40 Vitamin B-1 PO 100 mg DAILY DAVID Administration Penicillins Allergy (Verified 07/11/19 13:11) Unknown Vitals/I&O/Wt Last Vital Signs Temp 97.9 F 07/14/19 08:00 Pulse 96 07/14/19 08:04 Resp 18 07/14/19 08:00 BP 110/62 07/14/19 08:38 Pulse Ox 94 07/14/19 08:00 07/13/19 07/14/19 07/14/19 22:59 06:59 14:59 Intake Total 150 / 970 100 / 1070 240 / 240 Output Total 880 / 880 750 / 1630 Balance -730 / 90 -650 / -560 240 / 240 Weight last 48 hrs Weight 104.145 kg Weight 103.827 kg Physical Exam Const: COMMON NORMALS: no apparent distress and oriented x3 GENERAL APPEARANCE: cooperative and comfortable ORIENTATION/CONSCIOUSNESS: Yes awake HENMT: COMMON NORMALS: normocephalic, head/scalp atraumatic and moist oral mucous membranes HEAD & SCALP: normocephalic and atraumatic GENERAL EAR: hearing grossly impaired Laterality: diffuse Eye: COMMON NORMALS: PERRL, EOMs intact bilaterally and conjunctivae normal CONJUNCTIVA: Yes conjunctivae normal PUPIL: Yes PERRL Neck/C-Spine: COMMON NORMALS: full ROM GENERAL: Yes normal visual inspection and Yes trachea midline Resp: COMMON NORMALS: normal respiratory effort, no retractions, no use of accessory muscles and clear to auscultation bilaterally EFFORT & INSPECTION: Yes able to speak in complete sentences, Yes symmetric chest movement and No tachypneic AUSCULTATION: clear to auscultation bilaterally Cardio: COMMON NORMALS: regular rate, regular rhythm, S1 normal heart sound, S2 normal heart sound and no murmurs RATE: regular rate RHYTHM: regular rhythm HEART SOUNDS: S1 normal and S2 normal GI: COMMON NORMALS: normal to inspection, nondistended, normoactive bowel sounds, soft to palpation and non-tender INSPECTION: Yes central obesity PALPATION: Yes soft Extremity: COMMON NORMALS: normal to inspection, full ROM and no clubbing, cyanosis or edema; negative for no pedal edema Neuro: COMMON NORMALS: oriented x3, moves all extremities, no focal motor deficits and no sensory deficits noted Psych: COMMON NORMALS: mental status grossly normal, thought process normal, cooperative, affect normal and speech normal SPEECH: Yes normal speech THOUGHT PROCESS: normal thought process Skin: COMMON NORMALS: no rashes or lesions noted, no jaundice, no petechiae and no mottling GENERAL SKIN EXAM: no rashes or lesions noted Urinary Catheter Management^: Benson: Cath Placed During This Visit: yes Urethral Indwelling: Yes Reason for Continuing Indwelling Catheter: Accurate Measurement of Urinary Output in Critically Ill Patients Urinary Catheter Date of Insertion: 07/11/19 Urinary Catheter Time of Insertion: 14:34 Data : 07/14/19 05:15 07/14/19 05:15 Micro: Microbiology 07/12/19 15:43 Blood Culture - Preliminary Blood NEGATIVE TO DATE 07/12/19 15:46 Blood Culture - Preliminary Blood NEGATIVE TO DATE A&P Assessment and plan (1) Sepsis: -initial concern for sepsis given leukocytosis, fever, tachycardia; now resolved -no LP done due to patient being unable to tolerate procedure and on AC with Coumadin -blood cx: prelim negative -afebrile x > 24 hrs, UA negative though 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 with some fat stranding, no evidence of pyelonephritis, no evidence of bowel ischemia; CXR negative; overall decreasing leukocytosis -d/c abx at this time -Benson catheter in place due to noted urinary retention on admission, voiding trial today Status: Resolved Qualifiers: Sepsis acute organ dysfunction status: unspecified Sepsis type: sepsis due to unspecified organism Qualified Code(s): A41.9 - Sepsis, unspecified organism Code(s): A41.9 - Sepsis, unspecified organism (2) Acute encephalopathy: -initially was altered with noted confusion, agitation; appears to be at baseline currently -no need for 1:1 monitoring overnight -off antibiotics and antivirals, low suspicion for meningitis Status: Resolved Code(s): G93.40 - Encephalopathy, unspecified (3) Transaminitis: -could be related to EtOH consumption -had normalized then slight increase noted today. Status: Acute Code(s): R74.0 - Nonspecific elevation of levels of transaminase and lactic acid dehydrogenase [LDH] (4) Abdominal pain: -CT reviewed, KUB shows low grade ileus -pain control, antiemetics as needed -on GI soft diet Status: Acute Qualifiers: Abdominal location: unspecified location Qualified Code(s): R10.9 - Unspecified abdominal pain Code(s): R10.9 - Unspecified abdominal pain (5) Abdominal aortic aneurysm: -has known AAA, 4.1 cm in size, no rupture or change on CT Status: Acute Qualifiers: Presence of rupture: without rupture Qualified Code(s): I71.4 - Abdominal aortic aneurysm, without rupture Code(s): I71.4 - Abdominal aortic aneurysm, without rupture (6) Hypertension: -BP controlled, continue oral antihypertensives -continue to monitor vital signs Status: Acute Qualifiers: Hypertension type: essential hypertension Qualified Code(s): I10 - Essential (primary) hypertension Code(s): I10 - Essential (primary) hypertension (7) Atrial fibrillation: -has known hx of atrial fibrillation -rate controlled -telemetry monitoring -on AC with therapeutic Lovenox, will resume coumadin; INR-1.46 -continue metoprolol Status: Acute Qualifiers: Atrial fibrillation type: unspecified Qualified Code(s): I48.91 - Unspecified atrial fibrillation Code(s): I48.91 - Unspecified atrial fibrillation (8) COPD exacerbation: -not oxygen dependent at baseline -on inhaled and oral steroids -continue to monitor respiratory status; supplemental oxygen as needed Status: Acute Code(s): J44.1 - Chronic obstructive pulmonary disease with (acute) exacerbation Additional A&P Information -hx of daily EtOH use; 9 beers/day; on CIWA protocol -Chronic HFpEF; no acute exacerbation currently, euvolemic. Echo: EF=55%, moderate , moderate pulmonary HTN, trace MR, trace AR, trace TR. BNP-4138. Did need some diuresis initially -NIDDM type II; A1c-7.2; continue accucheks, ISS -Chronic constipation, resume Senna -Dispo: home with HH -Code status: FULL code Attestations Medical Necessity Statement*: Patient requires hospitalization for continued management of acute COPD exacerbation, acute urinary retention pending voiding trial, and continued optimization of medication. Time Spent in Patient Care: Greater than 35 minutes (>than 50% of time spent in counselling and/or direct pt care on unit). Coding Level of Care Code Acute Adjunct Art History Instructor for g Fwd Exam Comprehensive Diagnoses Sepsis A41.9 Sepsis acute organ dysfunction status: unspecified Sepsis type: sepsis due to unspecified organism Acute encephalopathy G93.40 Transaminitis R74.0 Abdominal pain R10.9 Abdominal location: unspecified location Abdominal aortic aneurysm I71.4 Presence of rupture: without rupture Hypertension I10 Hypertension type: essential hypertension Atrial fibrillation I48.91 Atrial fibrillation type: unspecified COPD exacerbation J44.1
[2019-07-14] MEDS: lisinopril 5 mg Tablet 2.5 MG PO (09:17)
[2019-07-14] MEDS: metoprolol tartrate 25 mg Tablet PO ×2 (09:17→20:25)
[2019-07-14 11:58] LABS: Glucose Point of Care 328 mg/dL (70-110)
--- NOTE | 2019-07-14 12:28 | PC.SOCIAL ---
IMM Update Pg 2 of IMM given and explained to patient who verbalized understanding. Copy provided to patient.
[2019-07-14] MEDS: warfarin 5 mg Tablet PO (14:14)
[2019-07-14] MEDS: sennosides-docusate Tablet 2 TAB PO (17:32)
[2019-07-14 17:49] LABS: Glucose Point of Care 199 mg/dL (70-110)
--- NOTE | 2019-07-14 18:40 | PC.NURSE ---
OUTPUT Patients has been walking patient back and forth to bathroom. Educated patient and family on the need to document urine output. Urinal placed at bedside.
[2019-07-14 20:47] LABS: Glucose Point of Care 210 mg/dL (70-110)
[2019-07-14] MEDS: cyclobenzaprine 10 mg Tablet PO (21:56)
[2019-07-15] VITALS (10 sets, daily range): BP systolic 145–168; BP diastolic 74–114; PULSE 92–102; RESP 16–22; TEMP 36.7–36.9; O2SAT 92–97
[2019-07-15 06:55] LABS: Glucose Point of Care 205 mg/dL (70-110)
[2019-07-15] MEDS: ipratropium-albuterol 3 mL Neb INHALATION ×2 (08:30→12:45)
[2019-07-15] MEDS: budesonide 0.5 mg/2 mL Neb INHALATION (08:30)
[2019-07-15] MEDS: metoprolol tartrate 25 mg Tablet PO (09:04)
[2019-07-15] MEDS: folic acid 1 mg Tablet PO (09:05)
[2019-07-15] MEDS: predniSONE 20 mg Tablet 40 MG PO (09:05)
[2019-07-15] MEDS: lisinopril 5 mg Tablet 2.5 MG PO (09:05)
[2019-07-15] MEDS: multivitamin therapeutic Tablet 1 TAB PO (09:05)
[2019-07-15] MEDS: thiamine 100 mg Tablet PO (09:05)
[2019-07-15] MEDS: enoxaparin 100 mg/mL Syringe SUBCUT (09:05)
[2019-07-15] MEDS: sertraline 100 mg Tablet 150 MG PO (09:05)
[2019-07-15] MEDS: sennosides-docusate Tablet 2 TAB PO (09:06)
[2019-07-15] MEDS: polyethylene glycol 3350 Pkt 17 gm PO (09:17)
[2019-07-15 12:07] LABS: Glucose Point of Care 195 mg/dL (70-110)
--- NOTE | 2019-07-15 14:04 | P.DS_ITS ---
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 with some fat stranding, no evidence of pyelonephritis, no evidence of bowel ischemia; CXR negative; overall decreasing leukocytosis -d/c abx at this time -Benson catheter in place due to noted urinary retention on admission, discontinued and able to void independently Qualifiers: Sepsis type: sepsis due to unspecified organism Sepsis acute organ dysfunction status: unspecified Qualified Code(s): A41.9 - Sepsis, unspecified organism (2) Acute encephalopathy: Status: Resolved Problem details: -initially was altered with noted confusion, agitation; appears to be at baseline currently -no need for 1:1 monitoring overnight -off antibiotics and antivirals, low suspicion for meningitis (3) Transaminitis: Status: Acute Problem details: -could be related to EtOH consumption -had normalized then slight increase noted today. (4) Abdominal pain: Status: Acute Problem details: -CT reviewed, KUB shows low grade ileus -pain control, antiemetics as needed -on GI soft diet -had BM today Qualifiers: Abdominal location: unspecified location Qualified Code(s): R10.9 - Unspecified abdominal pain (5) Abdominal aortic aneurysm: Status: Acute Problem details: -has known AAA, 4.1 cm in size, no rupture or change on CT Qualifiers: Presence of rupture: without rupture Qualified Code(s): I71.4 - A bdominal aortic aneurysm, without rupture (6) Hypertension: Status: Chronic Problem details: -BP controlled, continue oral antihypertensives -continue to monitor vital signs Qualifiers: Hypertension type: essential hypertension Qualified Code(s): I10 - Essential (primary) hypertension (7) Atrial fibrillation: Status: Acute Problem details: -has known hx of atrial fibrillation -rate controlled -telemetry monitoring -on AC with therapeutic Lovenox, will resume coumadin; INR-1.80 -continue metoprolol Qualifiers: Atrial fibrillation type: unspecified Qualified Code(s): I48.91 - Unspecified atrial fibrillation (8) COPD exacerbation: Status: Acute Problem details: -not oxygen dependent at baseline -on inhaled and oral steroids -continue to monitor respiratory status; supplemental oxygen as needed Other Information Additional DC diagnoses/information: -hx of daily EtOH use; 9 beers/day; on CIWA protocol -Chronic HFpEF; no acute exacerbation currently, euvolemic. Echo: EF=55%, moderate , moderate pulmonary HTN, trace MR, trace AR, trace TR. BNP-4138. Did need some diuresis initially -NIDDM type II; A1c-7.2; continue accucheks, ISS -Chronic constipation, on bowel regimen, had BM earlier today Reason for Visit Reason for Visit: Reason For Visit: POSS SEPSIS, AFIB WITH RVR Hospital Course Hospital Course: Patient initially presented with significant confusion and there was noted concern for sepsis given significant leukocytosis, hypotension, lactic acidosis and tachycardia as well as noted change in mental status. Source was unknown but patient was started on broad-spectrum IV antibiotics and IV fluid hydration. He was initially admitted to ICU for closer monitoring. He had a CT of the abdomen and pelvis concerning for possible ischemic bowel and he had further evaluation with a CTA which ruled out ischemia but noted nonspecific stranding around right horseshoe kidney. UA was negative, blood cultures have been negative as well. Is not a candidate for lumbar puncture secondary to being on therapeutic anticoagulation with Coumadin and and ability to tolerate procedure. Given abdominal imaging findings surgery was consulted and recommended continued broad-spectrum IV antibiotic treatment with no need for surgical intervention. With time and the aforementioned treatment patient's hemodynamic status improved, white count normalized and his mental status has gradually returned to baseline. Did receive some antiviral treatment due to initial concern for meningitis. This was subsequently discontinued as mental status cleared up. He did have some evidence of low-grade ileus on KUB, he has been tolerating oral intake without difficulty and has had a bowel movement earlier today. Abdominal examination has remained benign. His coagulation with Coumadin was held and he was covered with therapeutic Lovenox. I have since resumed his Coumadin and his INR as of today is 1.80. He will require follow-up INR in approximately 2 to 3 days which can be done by his primary care provider. Once more stable he was transitioned to the floor for continued care. He has continued to do well, I have discontinued his antibiotic treatment as no clear infectious etiology has been identified based on the work-up he has had. Even with discontinuation of antibiotics he has continued to do well and per his daughter who was present at bedside during my assessment he is at his baseline in terms of his mental status. Due to his hospital stay and overall illness he has become deconditioned and has been evaluated by physical therapy. He will require continued therapy through home health services which has been arranged. Of note he did require one-on-one monitoring secondary to periods of agitation, combativeness and disorientation. He has been off one-on-one monitoring for at least 48 hours. He did require Benson catheter placement given degree of altered mental status, this has been discontinued and he has been able to void independently without difficulty. Discharge Summary: -Patient to follow-up with his primary care physician within 1 week. He will require INR to be checked in approximately 2 to 3 days. Physical Exam Const: COMMON NORMALS: no apparent distress and oriented x3 GENERAL APPEARANCE: cooperative and comfortable ORIENTATION/CONSCIOUSNESS: Yes awake HENMT: COMMON NORMALS: normocephalic, head/scalp atraumatic and moist oral mucous membranes HEAD & SCALP: normocephalic and atraumatic GENERAL EAR: hearing grossly impaired Laterality: diffuse Eye: COMMON NORMALS: PERRL, EOMs intact bilaterally and conjunctivae normal CONJUNCTIVA: Yes conjunctivae normal PUPIL: Yes PERRL Neck/C-Spine: COMMON NORMALS: full ROM GENERAL: Yes normal visual inspection and Yes trachea midline Resp: COMMON NORMALS: normal respiratory effort, no retractions, no use of accessory muscles and clear to auscultation bilaterally EFFORT & INSPECTION: Yes able to speak in complete sentences, Yes symmetric chest movement and No tachypneic AUSCULTATION: clear to auscultation bilaterally Cardio: COMMON NORMALS: regular rate, regular rhythm, S1 normal heart sound, S2 normal heart sound and no murmurs RATE: regular rate RHYTHM: regular rhythm HEART SOUNDS: S1 normal and S2 normal GI: COMMON NORMALS: normal to inspection, nondistended, normoactive bowel sounds, soft to palpation and non-tender INSPECTION: Yes central obesity PALPATION: Yes soft Extremity: COMMON NORMALS: normal to inspection, full ROM and no clubbing, cyanosis or edema; negative for no pedal edema Neuro: COMMON NORMALS: oriented x3, moves all extremities, no focal motor deficits and no sensory deficits noted Psych: COMMON NORMALS: mental status grossly normal, thought process normal, cooperative, affect normal and speech normal SPEECH: Yes normal speech THOUGHT PROCESS: normal thought process Skin: COMMON NORMALS: no rashes or lesions noted, no jaundice, no petechiae and no mottling GENERAL SKIN EXAM: no rashes or lesions noted Urinary Catheter Management^: Benson: Cath Placed During This Visit: yes Urethral Indwelling: Yes Reason for Continuing Indwelling Catheter: Accurate Measurement of Urinary Output in Critically Ill Patients Urinary Catheter Date of Insertion: 07/11/19 Urinary Catheter Time of Insertion: 14:34 Discharge Data Data Completed and Pending: Completed Studies During Hospitalization Category Date Time Status CT abdomen pelvis w con* [id number] Stat Cat Scan 07/11/19 16:[address] angio abdomen pelvis [id number] Stat Cat Scan 07/11/19 18:[address] head wo con* 7 0450 Stat Cat Scan 07/11/19 13:09 Completed XR KUB portable 7 [id number] Routine Exams 07/13/19 08:25 Completed XR chest 1V radha ble [id number] Routine Exams 07/12/19 21:08 Completed XR chest 1V radha ble [id number] Stat Exams 07/11/19 14:18 Completed CV echo complete* [id number] Routine Ultrasound 07/11/19 17:09 [place] [id number] Routin e Ultrasound 07/13/19 08:40 Completed Pending at discharge Category Date Time Status Blood Culture Sta t Lab 07/12/19 15:43 Results Labs from last 24 hours 07/15/19 07/15/19 07/15/19 11:50 06:51 02:54 PT 21.50 H INR 1.80 H POC Glucose 195 205 07/14/19 07/14/19 20:42 17:31 PT INR POC Glucose 210 199 Vitals: Last Vital Signs Temp 98.1 F 07/15/19 11:51 Pulse 98 07/15/19 12:47 Resp 18 07/15/19 12:45 BP 152/74 07/15/19 13:58 Pulse Ox 93 07/15/19 12:45 Discharge Plan Discharge Patient Disposition: Home, Self-Care Condition: Stable Prescriptions: New Miralax 17 gram Powder In Packet 17 g PO DAILY PRN (Reason: Constipation) 30 Days Qty: 30 RF: 0 sennosides-docusate sodium 8.6-50 mg Tablet 2 tab PO BID 30 Days Qty: 120 RF: 0 folic acid 1 mg Tablet 1 mg PO DAILY 30 Days Qty: 30 RF: 0 metoprolol tartrate 25 mg Tablet 25 mg PO Q12H 30 Days Qty: 60 RF: 0 Vitamin B-1 (mononitrate) 100 mg Tablet 100 mg PO DAILY 30 Days Qty: 30 RF: 0 Continued cyclobenzaprine 10 mg Tablet 10 mg PO BEDTIME PRN (Reason: Spasms) RF: 0 glipizide 10 mg Tablet 10 mg PO BID RF: 0 sertraline 100 mg Tablet See Rx Instructions .ROUTE .COMPLEX RF: 0 melatonin 3 mg Tablet See Rx Instructions .ROUTE .COMPLEX RF: 0 allopurinol 100 mg Tablet 100 mg PO DAILY RF: 0 hydrocodone-acetaminophen 10-325 mg Tablet 1 tab PO QID PRN (Reason: Pain) RF: 0 Acetaminophen Extra Strength 500 mg Tablet 500 mg PO QID PRN (Reason: Pain) RF: 0 warfarin 5 mg Tablet See Rx Instructions .ROUTE .COMPLEX RF: 0 lisinopril 5 mg Tablet 2.5 mg PO DAILY RF: 0 hydrochlorothiazide 25 mg Tablet 25 mg PO DAILY RF: 0 ProAir HFA 90 mcg/actuation Hfa Aerosol Inhaler 2 puff INHALATION QID RF: 0 colchicine 0.6 mg Tablet 0.6 mg PO DAILY RF: 0 Symbicort 80-4.5 mcg/actuation Hfa Aerosol Inhaler 2 puff INHALATION BID RF: 0 Discharge Orders: Discharge Order (Routine); Ordered 07/15/19 Ordered By: Nereyda Morgan Other Ambulatory Orders: DME: [facility] (Order) Location: None Selected Ordered By: Nereyda Morgan Referrals: Mauro Mckinney [Family Provider] - 4-7 days (Please contact Dr. Mckinney office tomorrow to schedule a follow up appointment. Post-hospital discharge follow up. Is on Coumadin, needs continued INR monitoring.) Discharge Diet: Low Salt Discharge Activity: Increase activity as tolerated Patient Instructions: COPD, Metoprolol (By mouth), Laxative, Stimulant (By mouth), Folic Acid (By mouth), Polyethylene Glycol 3350 (By mouth), Hypertension Discharge Attestations Time Spent in Discharge Care*: greater than 30 min Specific Discharge Activities: Specific discharge activities: educating patient, educating and/or supporting family/caregiver, discussing with field nurse case manager/social workers/dc planners, documenting/other paperwork and evaluating patient/reviewing data Status at Discharge: Cognitive status at discharge: cognitively intact , Behavioral status at discharge: cooperative , Functional status at discharge: uses cane/walker Overall status at discharge: patient is back to baseline Quality Metrics Clinical Quality Measures During this hospital stay, did patient experience: None Coding Level of Care Code Acute Space Scheduler for g Fwd Diagnoses Sepsis A41.9 Sepsis type: sepsis due to unspecified organism Sepsis acute organ dysfunction status: unspecified Acute encephalopathy G93.40 Transaminitis R74.0 Abdominal pain R10.9 Abdominal location: unspecified location Abdominal aortic aneurysm I71.4 Presence of rupture: without rupture Hypertension I10 Hypertension type: essential hypertension Atrial fibrillation I48.91 Atrial fibrillation type: unspecified COPD exacerbation J44.1
[2019-07-15] MEDS: warfarin 5 mg Tablet PO (14:33)
--- NOTE | 2019-07-15 15:43 | PC.NURSE ---
DISCHARGE SUMMARY PATIENT WAS GIVEN DISCHARGE SUMMARY AND FAMILY WAS AWARE OF INSTRUCTION WELL. PRESCRIPTIONS GIVEN TO PHARMACY. IV DISCONTINUED AND VITAL SIGNS STABLE. PATIENT ALERT AND ORIENTED.
== END 2019-07-15 15:45 | disposition home or self-care (01) | DRG 872 ==
LOC: ER 13:36 → ICU 19:02 → MEDSURG 07-13 20:26
PROVIDERS: Student in an Organized Health Care Education/Training Program; Admitting Provider Family Medicine; Emergency Provider Family Medicine; Family Provider Internal Medicine; Visit Provider Family Medicine
DX: A41.9 Sepsis, unspecified organism (principal); G93.40 Encephalopathy, unspecified; J44.1 Chronic obstructive pulmonary disease with (acute) exacerbation; R65.20 Severe sepsis without septic shock; I10 Essential (primary) hypertension; I71.4 Abdominal aortic aneurysm, without rupture; E11.9 Type 2 diabetes mellitus without complications; M10.041 Idiopathic gout, right hand; R74.0 Nonspecific elevation of levels of transaminase and lactic acid dehydrogenase [LDH]; Z79.51 Long term (current) use of inhaled steroids; Z79.82 Long term (current) use of aspirin; Z79.01 Long term (current) use of anticoagulants; Z79.899 Other long term (current) drug therapy; Z79.84 Long term (current) use of oral hypoglycemic drugs
CPT/HCPCS: 12345; 36415; 36416; 36600; 51702; 70450; 71045; 74018; 74174; 74177; 80051; 80053; 80202; 81001; 82009; 82140; 82803; 82810; 82962; 83036; 83605; 83690; 83880; 83986; 84443; 84484; 85025; 85610; 85730; 87040; 87804; 92523; 92526; 92610; 93005; 93306; 93971; 94640; 94660; 94664; 96105; 96372; 96375; 97110; 97116; 97161; 97167; 97530; 97535; 99283; J0133; J0360; J0692; J0696; J1650; J1815; J1940; J1956; J2060; J2270; J2930; J3370; J3411; J7030; J7050; J7512; J7626; Q9967; S0030

== ENCOUNTER 2019-09-28 15:29 | Emergency (ER) | payer OTHER, SELFPAY ==
[2019-09-28 15:30] VITALS: BP 137/93; PULSE 144; RESP 22; TEMP 37.4; O2SAT 97; BMI 29.9
--- NOTE | 2019-09-28 15:36 | W.ED.GENADLT ---
HPI - General Adult General: Chief complaint: Arrhythmia/Palpitations Stated complaint: AFIB W/ RVR Time Seen by Provider: 09/28/19 15:36 History of Present Illness: HPI narrative: 74-year-old male who presents emergency room with complaint of back pain for the last 8 to 10 days. He is also noted to be in A. fib with RVR. He has a known history of atrial fibrillation and is on warfarin he denies any shortness of breath or chest pain. He is not recently changed any meds or run out of medication he still continue to take his warfarin. He denies fever sweats or chills denies increase in shortness of breath denies productive cough no nausea vomiting or diarrhea he does have a large umbilical hernia but it is not hurting at all. Onset (ago): week(s) Location: back Radiation: non-radiation Severity: severe Quality: aching Pain Consistency: constant Relieving factors: rest Exacerbating factors: movement Associated symptoms: Reports no associated symptoms; Deny chest pain, dyspnea, malaise, nausea, rash or vomiting Treatments prior to arrival: none Review of Systems Const: Denies: fever, chills, body aches, change in appetite, fatigue or malaise ENMT: Denies: throat pain, ear pain, nasal discharge or nasal congestion Card: Denies: chest pain, edema, shortness of breath on exertion or shortness of breath when lying down Resp: Denies: shortness of breath, productive cough or non-productive cough GI: Denies: abdominal pain, nausea, vomiting, vomiting blood, coffee grounds in vomit, diarrhea, constipation, bloating, blood in stool or black tarry stool : Denies: flank pain, painful urination, urinary frequency or urinary urgency Skin/Breast: Denies: rash or itching PFS ED PFSH: Social History Smoking and tobacco status: former smoker Alcohol intake: current Alcohol intake frequency: few times a week Physical Exam Const: COMMON NORMALS: no apparent distress GENERAL APPEARANCE: cooperative and comfortable ORIENTATION/CONSCIOUSNESS: Yes awake, Yes oriented to person, Yes oriented to place and Yes oriented to time HENMT: COMMON NORMALS: normocephalic, head/scalp atraumatic, hearing grossly normal bilaterally, external ears normal, EAC's normal, TM's normal bilaterally, nasal mucous membranes and turbinates normal, moist oral mucous membranes and oropharynx normal HEAD & SCALP: normocephalic and atraumatic NOSE: nasal mucous membranes and turbinates normal EXTERNAL EAR: Yes external ears normal EXTERNAL AUDITORY CANAL: EAC's normal TYMPANIC MEMBRANE: TM's normal bilaterally Eye: COMMON NORMALS: PERRL, EOMs intact bilaterally, conjunctivae normal and no scleral icterus CONJUNCTIVA: Yes conjunctivae normal PUPIL: Yes PERRL Neck/C-Spine: COMMON NORMALS: full ROM, no lymphadenopathy, supple and no JVD Lymph: LYMPHATIC: no lymphadenopathy noted and no lymphedema noted Resp: COMMON NORMALS: normal respiratory effort, no retractions, no use of accessory muscles and clear to auscultation bilaterally AUSCULTATION: clear to auscultation bilaterally Cardio: COMMON NORMALS: no JVD and no murmurs RATE: tachycardic RHYTHM: abnormal rhythm irregularly irregular GI: COMMON NORMALS: soft to palpation and no hepatosplenomegaly AUSCULTATION: Yes normoactive bowel sounds PALPATION: Yes soft, No tender, No guarding and Yes no hepatosplenomegaly Extremity: COMMON NORMALS: normal to inspection, normal capillary refill, no clubbing, cyanosis or edema, no calf tenderness and no pedal edema Neuro: SENSORIUM/ORIENTATION: Yes oriented to person, Yes oriented to place and Yes oriented to time Skin: COMMON NORMALS: no rashes or lesions noted GENERAL SKIN EXAM: no rashes or lesions noted Course Vital Signs: Vital signs: Vital Signs Temperature 99.3 F 09/28/19 15:30 Pulse Rate 111 H 09/28/19 15:41 Respiratory Rate 18 09/28/19 16:57 Blood Pressure 137/93 09/28/19 15:41 Pulse Oximetry 94 09/28/19 15:41 MDM - General Adult MDM Narrative: Medical decision making narrative: Patient responded well to single dose of IV Lopressor followed up with oral Lopressor. He is given pain medications for his back he did screen his abdominal aortic aneurysm which remains unchanged. Organ to go ahead and discharge him home gave him tramadol as well as Skelaxin start him on Toprol-XL he is hypertensive should tolerate that dose well should also should help with his rate control. Continue his warfarin follow-up with his primary care doctor within the week return if has further problems. Also encouraged to follow-up with his primary care doctor for further management long-term of his chronic back pain. Lab Data: Labs: Lab Results 09/28/19 09/28/19 09/28/19 Range/Units 15:42 15:42 15:42 WBC 14.3 H (4.0-10.0) 10^3/ uL RBC 4.34 (4.1-5.3) 10^6/u L Hgb 14.6 (11.7-16.6) g/dL Hct 44.7 (42.0-52.0) % MCV 103.0 H (80-94) fL MCH 33.6 (28.0-34.0) pg MCHC 32.7 (30.0-36.0) g/dL RDW 13.8 (12.1-15.1) % Plt Count 479 H (130-400) 10^3/c mm MPV 10.3 (7.4-10.4) fL Neut % (Auto) 83.1 % Lymph % (Auto) 6.9 % O'Brien % (Auto) 8.0 % Eos % (Auto) 0.1 % Baso % (Auto) 0.3 % Neut # (Auto) 11.9 H (1.8-7.7) 10^3/u L Lymph # (Auto) 1.0 (0.8-4.8) 10^3/u L O'Brien # (Auto) 1.1 H (0.2-0.9) 10^3/u L Eos # (Auto) 0.0 (0.0-0.8) 10^3/u L Baso # (Auto) 0.0 (0.0-0.1) 10^3/u L Nucleated RBC % (a uto) 0 % Nucleated RBCs # 0.0 /100WBC PT (10.5-13.3) SECO NDS INR (0.8-1.2) Sodium 131 L (136-145) mmol/L Potassium 4.1 (3.5-5.1) mmol/L Chloride 93 L (98-107) mmol/L Carbon Dioxide 21 L (22-29) mmol/L Anion Gap 21.1 H (5-19) BUN 19 (8-23) mg/dL Creatinine 0.9 (0.7-1.2) mg/dL Glucose 307 H (65-115) mg/dL Calculated Osmolal ity 280 L (285-295) mOsm/k g Calcium 9.5 (8.5-10.5) mg/dL Total Bilirubin 0.6 (0.15-1.2) mg/dL AST 50 H (0-40) U/L ALT 69 H (0-41) U/L Alkaline Phosphata se 180 H (40-130) IU/L Troponin T Baselin e 20 H (0-15) ng/mL Total Protein 7.3 (6.6-8.7) g/dL Albumin 3.0 L (3.5-5.2) g/dL Globulin 4.3 (1.3-4.6) g/dL 09/28/19 Range/Units 15:42 WBC (4.0-10.0) 10^3/ uL RBC (4.1-5.3) 10^6/u L Hgb (11.7-16.6) g/dL Hct (42.0-52.0) % MCV (80-94) fL MCH (28.0-34.0) pg MCHC (30.0-36.0) g/dL RDW (12.1-15.1) % Plt Count (130-400) 10^3/c mm MPV (7.4-10.4) fL Neut % (Auto) % Lymph % (Auto) % O'Brien % (Auto) % Eos % (Auto) % Baso % (Auto) % Neut # (Auto) (1.8-7.7) 10^3/u L Lymph # (Auto) (0.8-4.8) 10^3/u L O'Brien # (Auto) (0.2-0.9) 10^3/u L Eos # (Auto) (0.0-0.8) 10^3/u L Baso # (Auto) (0.0-0.1) 10^3/u L Nucleated RBC % (a uto) % Nucleated RBCs # /100WBC PT 42.30 H (10.5-13.3) SECO NDS INR 4.22 H (0.8-1.2) Sodium (136-145) mmol/L Potassium (3.5-5.1) mmol/L Chloride (98-107) mmol/L Carbon Dioxide (22-29) mmol/L Anion Gap (5-19) BUN (8-23) mg/dL Creatinine (0.7-1.2) mg/dL Glucose (65-115) mg/dL Calculated Osmolal ity (285-295) mOsm/k g Calcium (8.5-10.5) mg/dL Total Bilirubin (0.15-1.2) mg/dL AST (0-40) U/L ALT (0-41) U/L Alkaline Phosphata se (40-130) IU/L Troponin T Baselin e (0-15) ng/mL Total Protein (6.6-8.7) g/dL Albumin (3.5-5.2) g/dL Globulin (1.3-4.6) g/dL Discharge Plan Discharge Patient Disposition: Home, Self-Care Clinical Impression: Atrial fibrillation, Hypertension, Chronic back pain Condition: Stable Prescriptions: New Toprol XL 50 mg tablet extended release 24 hr 50 mg PO DAILY Qty: 20 RF: 0 Skelaxin 800 mg tablet 800 mg PO TID PRN (Reason: muscle pain) Qty: 20 RF: 0 tramadol 50 mg tablet 50 mg PO Q6H PRN (Reason: pain) Qty: 20 RF: 0 No Action sertraline 100 mg Tablet 150 mg PO DAILY RF: 0 melatonin 3 mg Tablet See Rx Instructions .ROUTE .COMPLEX RF: 0 allopurinol 100 mg Tablet 100 mg PO DAILY RF: 0 acetaminophen [Acetaminophen Extra Strength] 500 mg Tablet 500 - 1,000 mg PO QID PRN (Reason: Pain) RF: 0 warfarin 5 mg Tablet See Rx Instructions .ROUTE .COMPLEX RF: 0 colchicine 0.6 mg Tablet 0.6 mg PO PRN PRN (Reason: unknown) RF: 0 budesonide-formoterol [Symbicort] 80-4.5 mcg/actuation Hfa Aerosol Inhaler 2 puff INHALATION BID RF: 0 Multiple Vitamins Tablet 1 tab PO DAILY RF: 0 Lipitor 80 mg Tablet 40 mg PO DAILY RF: 0 Flomax 0.4 mg Capsule 0.4 mg PO QPM RF: 0 ProAir HFA 90 mcg/actuation Hfa Aerosol Inhaler 2 puff INHALATION QID PRN (Reason: Shortness Of Breath) RF: 0 alogliptin 25 mg Tablet 25 mg PO DAILY RF: 0 senna 8.6 mg Tablet 17.2 mg PO BID RF: 0 diltiazem HCl 240 mg Capsule,Extended Release 24 Hr 240 mg PO QAM RF: 0 prazosin 2 mg Capsule 2 mg PO BEDTIME RF: 0 cholecalciferol (vitamin D3) 50 mcg (2,000 unit) Tablet 50 mcg PO DAILY RF: 0 metformin 1,000 mg Tablet 1,000 mg PO BID RF: 0 Discharge Orders: Discharge Order (Routine); Ordered 09/28/19 Ordered By: Raghav Foley Discharge Diet: Usual diet Discharge Activity: Increase activity as tolerated Coding Level of Care Code ED 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
[2019-09-28 15:41] VITALS: BP 137/93; PULSE 111; RESP 18; O2SAT 94
--- NOTE | 2019-09-28 15:54 | ECG_ITS ---
Measurements Intervals [place] Rate: 142 P: [place]: 0 QRS: 53 QRSD: 90 T: 32 QT: 300 QTc: 462 ATRIAL FIBRILLATION WITH RAPID VENTRICULAR RESPONSE NONSPECIFIC ST & T-WAVE ABNORMALITY Compared to ECG 07/11/2019 15:07:23 Atrial flutter no longer present T-wave abnormality still present Electronically Signed On 09-29-2019 8:16:22 CDT by Ethel Sifuentes M.D. [id number] f
--- NOTE | 2019-09-28 15:54 | CT_ITS ---
WS: [id number] CT angio abdomen 23547 REASON FOR EXAM: hx AAA, back pain TECHNIQUE: Coronal and sagittal 2-D and MIP reformations. IV CONTRAST ADMINISTERED: Omnipaque 350 95 mL. TOTAL EXAM DLP: 1233.[address] scans at [facility] use at least one of these dose optimization techniques: automat ed exposure control; mA and/or kV adjustment per patient size (includes targeted exams where dose is matched to clinical indication); or iterative reconstruction. FINDINGS: Horseshoe kidneys The lower abdominal aorta measured 4.20 cm suggesting early aneurysmal changes. Similar to previous e xam July 11, 2019. The lower lung rhodes and lungs were normal. The liver showed normal appearance no masses were noted. The right left adrenal glands were normal. Granulomatous changes in the spleen are seen. The stomach and pancreas were normal. Normal function in the heart to kidneys are seen. Fusion in the lower aspects. The lumbar spine was normal there is no evidence of disc herniation fractures or other specific bone dyscrasias. No diverticulitis or diverticulosis. The pelvis showed normal urinary bladder with no filling defects. The anorectal area was normal. 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 The aneurysm today measures 4.2 cm and is seen in the lower aorta. The large and small bowel patterns were normal. The lumbar spine and bony pelvis were normal.
[2019-09-28 16:10] LABS: Basophils % 0.3 %; Eosinophils % 0.1 %; Hematocrit 44.7 % (42.0-52.0); Hemoglobin 14.6 g/dL (11.7-16.6); Lymphocytes % 6.9 %; Mean Corpuscular HGB Conc 32.7 g/dL (30.0-36.0); Mean Corpuscular Hemoglobin 33.6 pg (28.0-34.0); Mean Platelet Volume 10.3 fL (7.4-10.4); Monocytes # 1.1 10^3/uL (0.2-0.9); Neutrophils # 11.9 10^3/uL (1.8-7.7); Neutrophils % 83.1 %; Nucleated Red Blood Cells % 0 %; Platelet Count 479 10^3/cmm (130-400); Red Blood Count 4.34 10^6/uL (4.1-5.3); Red Cell Distribution Width 13.8 % (12.1-15.1); White Blood Count 14.3 10^3/uL (4.0-10.0)
[2019-09-28 16:26] LABS: Alanine Aminotransferase 69 U/L (0-41); Alkaline Phosphatase 180 IU/L (40-130); Anion Gap 21.1 (5-19); Aspartate Amino Transferase 50 U/L (0-40); Blood Urea Nitrogen 19 mg/dL (8-23); Calcium 9.5 mg/dL (8.5-10.5); Carbon Dioxide 21 mmol/L (22-29); Chloride 93 mmol/L (98-107); Globulin 4.3 g/dL (1.3-4.6); Glucose 307 mg/dL (65-115); Osmolality Calculated 280 mOsm/kg (285-295); Potassium 4.1 mmol/L (3.5-5.1); Sodium 131 mmol/L (136-145); Total Bilirubin 0.6 mg/dL (0.15-1.2); Total Protein 7.3 g/dL (6.6-8.7)
[2019-09-28 16:27] LABS: Troponin(5th) Baseline 20 ng/mL (0-15)
[2019-09-28] MEDS: iohexol 350 mg/mL 100 mL Btl IV (16:33)
[2019-09-28 16:47] LABS: INR 4.22 (0.8-1.2)
[2019-09-28] MEDS: metoprolol tartrate 25 mg Tablet PO (16:53)
[2019-09-28] MEDS: metoprolol tartrate 1 mg/1 mL SDV 5 mL 5 MG IV (16:54)
[2019-09-28 16:57] VITALS: RESP 18
[2019-09-28] MEDS: morphine 4 mg/mL SDV 1 mL 2 MG IVP (16:57)
[2019-09-28] MEDS: orphenadrine 30 mg/mL Inj 2 mL 60 MG IVP (17:00)
[2019-09-28 18:22] VITALS: BP 149/74; PULSE 95; RESP 17; O2SAT 97
== END 2019-09-28 18:23 | disposition home or self-care (01) ==
PROVIDERS: Emergency Provider Family Medicine
DX: G89.29 Other chronic pain (principal); M54.9 Dorsalgia, unspecified; I48.91 Unspecified atrial fibrillation; I10 Essential (primary) hypertension; Z79.01 Long term (current) use of anticoagulants; Z79.84 Long term (current) use of oral hypoglycemic drugs; Z87.891 Personal history of nicotine dependence
CPT/HCPCS: 12345; 74175; 80053; 84484; 85025; 85610; 93005; 96361; 96374; 96375; 99283; 99284; J2270; J2360; J3490; Q9967

== ENCOUNTER 2019-10-01 17:51 | Inpatient (IN) | payer OTHER, MEDICARE, SELFPAY ==
[2019-10-01 17:52] VITALS: BP 184/119; PULSE 109; RESP 22; TEMP 37.6; O2SAT 94; BMI 31.6
--- NOTE | 2019-10-01 17:57 | CTR_ITS ---
PROCEDURE INFORMATION: Exam: CT Head Without Contrast Exam date and time: 10/01/2019 6:18 PM Age: 74 years old Clinical indication: Altered mental status/memory loss; Additional info: Glalagher/ams TECHNIQUE: Imaging protocol: Computed tomography of the head without contrast. Radiation optimization: All CT scans at this facility use at least one of these dose optimization techniques: automated exposure control; mA and/or kV adjustment per patient size (includes targeted exams where dose is matched to clinical indication); or iterative reconstruction. COMPARISON: CT head wo con* [id number] 07/11/2019 3:01 PM RADIATION DOSE METRICS: Total DLP: 775.33 mGy-cm FINDINGS: Brain: The there is moderate cortical atrophy. There are low-density changes in the white matter regions in keeping nonspecific small vessel chronic ischemic change. There is no intracranial mass or hemorrhage. Ventricles: Normal. No ventriculomegaly. Bones/joints: Unremarkable. No acute fracture. Sinuses: Visualized sinuses are unremarkable. No fluid levels. Mastoid air cells: Visualized mastoid air cells are well aerated. Soft tissues: Unremarkable. CT/CT head wo con* [id number] IMPRESSION: Atrophy and chronic ischemic changes. No acute intracranial finding. No significant change compared with 07/11/2019. Are Radiation Dose CTDIVOL = (mGy): DLP = 775.33 (mGy-cm)
--- NOTE | 2019-10-01 17:57 | XR_ITS ---
WS: [id number] PORTABLE CHEST HISTORY: cough COMPARISON: 07/12/2019 Lung volumes are decreased. Chronic interstitial lung disease. No pneumonia or consolidation. No pleu ral effusion or pneumothorax. Cardiac size: Mildly enlarged cardiac silhouette. Mediastinum/Aorta: Moderate widening of the mediastinum similar to prior studies. Osteopenia. Prior RIGHT rotator cuff repair. XR/XR chest 1V portable [id number] IMPRESSION: Stable chest. Chronic interstitial lung disease with no pneumonia.
[2019-10-01 17:58] VITALS: BP 173/99; PULSE 137; RESP 18; O2SAT 98
--- NOTE | 2019-10-01 17:58 | ECG_ITS ---
Measurements Intervals [place] Rate: 142 P: [place]: 0 QRS: 53 QRSD: 90 T: 32 QT: 300 QTc: 462 ATRIAL FIBRILLATION WITH RAPID VENTRICULAR RESPONSE NONSPECIFIC ST & T-WAVE ABNORMALITY ABNORMAL RHYTHM ECG Compared to ECG 07/11/2019 15:07:23 Atrial flutter no longer present T-wave abnormality still present Electronically Signed On 10-02-2019 19:44:24 CDT by Nataly Ramirez M.D. [id number]
--- NOTE | 2019-10-01 18:22 | W.ED.ARRPALP ---
HPI - Arrhythmia/Palpitations General: Chief Complaint: Arrhythmia/Palpitations Stated Complaint: AMS/Afib with RVR Time Seen by Provider: 10/01/19 17:54 History of Present Illness: HPI narrative: Azam is a 74-year-old male who is brought in by EMS with report of altered mental status and A. fib with RVR. Apparently he took a hydrocodone for the first time today for an unknown reason and shortly thereafter became confused and shaky. The patient has a GCS of 13 here but otherwise has no complaints. Because of his confusion though history is really not reliable. The remaining findings were pulled from old charts. Review of Systems General: Reports: ROS unobtainable due to mental status PFSH ED PFSH: Medical History (Updated 10/02/19 @ 11:16 by Myah Duff) Abdominal aortic aneurysm Aortic stenosis Echocardiogram June 2019 showed valve area of 1.8 cm? with a mean gradient of 9 mmHg, described as moderate stenosis Atrial fibrillation Chronic alcohol dependence, continuous Chronic back pain COPD (chronic obstructive pulmonary disease) Diabetes mellitus Gout Hypertension Peripheral vascular disease Surgical History History of herniorrhaphy History of orthopedic surgery Right shoulder Hx of cholecystectomy Family History Father CAD (coronary artery disease) Social History (Updated 10/02/19 @ 08:23 by Jazmin Cody MD) Smoking and tobacco status: former smoker Alcohol intake: current Alcohol intake frequency: few times a week Physical Exam Const: EXAM LIMITATIONS: altered mental status GENERAL APPEARANCE: cooperative, lethargic and frail appearing ORIENTATION/CONSCIOUSNESS: Yes oriented to person and Yes lethargic HENMT: COMMON NORMALS: normocephalic, head/scalp atraumatic, hearing grossly normal bilaterally, external ears normal, EAC's normal, external nose normal and moist oral mucous membranes HEAD & SCALP: normal to inspection, normocephalic and atraumatic FACE & SINUS: normal facial exam and face symmetric NOSE: external nose normal and nares normal EXTERNAL EAR: Yes external ears normal EXTERNAL AUDITORY CANAL: EAC's normal MOUTH: oral and palatal mucosa normal and tongue normal Eye: COMMON NORMALS: PERRL, EOMs intact bilaterally, conjunctivae normal and no scleral icterus GENERAL EYE: normal appearance of both eyes and normal light reflex CONJUNCTIVA: Yes conjunctivae normal SCLERA: sclerae normal CORNEA: Yes corneas normal PUPIL: Yes PERRL DIRECT OPHTHALMOSCOPY: Yes normal light reflex Neck/C-Spine: COMMON NORMALS: full ROM, no lymphadenopathy, supple, no meningeal signs and no JVD GENERAL: Yes normal visual inspection and Yes trachea midline CERVICAL SPINE: Yes cervical ROM normal Chest: COMMONS NORMALS: inspection of chest normal and palpation of chest normal Resp: COMMON NORMALS: normal respiratory effort, no retractions, no use of accessory muscles and clear to auscultation bilaterally EFFORT & INSPECTION: Yes able to speak in complete sentences AUSCULTATION: clear to auscultation bilaterally Cardio: COMMON NORMALS: no JVD, S1 normal heart sound, S2 normal heart sound, no gallops, no clicks, no murmurs and no rub JUGULAR VENOUS DISTENTION: no JVD RATE: tachycardic RHYTHM: abnormal rhythm irregularly irregular HEART SOUNDS: S1 normal and S2 normal GI: COMMON NORMALS: soft to palpation, non-tender, no hepatosplenomegaly and no masses INSPECTION: Yes normal to inspection PALPATION: Yes soft and Yes no hepatosplenomegaly : COMMON NORMALS: Yes no CVA tenderness BLADDER/KIDNEY EXAM: Yes no CVA tenderness Back/Pelvis: COMMON NORMALS: no CVA tenderness, thoracic and lumbar spine normal to inspection, no thoracic nor lumbar tenderness and thoraco-lumbar ROM normal Extremity: COMMON NORMALS: normal to inspection, full ROM, normal capillary refill, no joint enlargement, no clubbing, cyanosis or edema and no calf tenderness Neuro: COMMON NORMALS: CN's II-XII intact bilaterally, moves all extremities, no focal motor deficits and no sensory deficits noted SENSORIUM/ORIENTATION: Yes oriented to person and Yes lethargic MENINGEAL SIGNS: Yes no meningeal signs Skin: COMMON NORMALS: no rashes or lesions noted, skin turgor normal, no jaundice, no petechiae and no mottling GENERAL SKIN EXAM: no rashes or lesions noted and turgor normal Course Vital Signs: Vital signs: Vital Signs Temperature 100.1 F H 10/02/19 06:00 Pulse Rate 114 H 10/02/19 08:54 Respiratory Rate 30 H 10/02/19 08:54 Blood Pressure 135/91 10/02/19 06:00 Pulse Oximetry 95 10/02/19 08:54 MDM - Arrhythmia/Palpitations MDM Narrative: Medical decision making narrative: Azam is improved in his mentation and still overall remains fairly ill. The case was reviewed with Dr. Sutton and he agrees admission to the ICU. Lab Data: Labs: Lab Results 10/01/19 10/01/19 10/01/19 Range/Units 18:08 18:08 18:08 WBC 13.7 H (4.0-10.0) 10^3/ uL RBC 4.08 L (4.1-5.3) 10^6/u L Hgb 13.4 (11.7-16.6) g/dL Hct 41.2 L (42.0-52.0) % MCV 101.0 H (80-94) fL MCH 32.8 (28.0-34.0) pg MCHC 32.5 (30.0-36.0) g/dL RDW 13.5 (12.1-15.1) % Plt Count 440 H (130-400) 10^3/c mm MPV 9.9 (7.4-10.4) fL Neut % (Auto) 89.1 % Lymph % (Auto) 4.0 % [place] % (Auto) 5.7 % Eos % (Auto) 0.0 % Baso % (Auto) 0.1 % Neut # (Auto) 12.2 H (1.8-7.7) 10^3/u L Lymph # (Auto) 0.5 L (0.8-4.8) 10^3/u L [place] # (Auto) 0.8 (0.2-0.9) 10^3/u L Eos # (Auto) 0.0 (0.0-0.8) 10^3/u L Baso # (Auto) 0.0 (0.0-0.1) 10^3/u L Nucleated RBC % (a uto) 0 % Nucleated RBCs # 0.0 /100WBC PT (10.5-13.3) SECO NDS INR (0.8-1.2) Specimen Type Sample Site ABG pH (7.35-7.45) ABG pCO2 (35-45) mmHg ABG pO2 (80.0-100.0) mmH g ABG HCO3 (22-26) mmol/L ABG Base Excess (-2.0-2.0) mmol/ L Orion Test Hematocrit (42-52) % O2 Delivery Device O2 Liters/Min % Geospatial Extractor Analysis ID Sodium 131 L (136-145) mmol/L Potassium 4.7 (3.5-5.1) mmol/L Chloride 93 L (98-107) mmol/L Carbon Dioxide 23 (22-29) mmol/L Anion Gap 19.7 H (5-19) BUN 16 (8-23) mg/dL Creatinine 0.7 (0.7-1.2) mg/dL Glucose 225 H (65-115) mg/dL Calculated Osmolal ity 275 L (285-295) mOsm/k g Calcium 8.9 (8.5-10.5) mg/dL Magnesium 1.7 (1.7-2.3) mg/dL Total Bilirubin 0.8 (0.15-1.2) mg/dL AST 86 H (0-40) U/L ALT 80 H (0-41) U/L Alkaline Phosphata se 271 H (40-130) IU/L Troponin T Baselin e 17 H (0-15) ng/mL NT-Pro-B Natriuret Pep 1151 H (0-125) pg/mL Total Protein 7.1 (6.6-8.7) g/dL Albumin 3.0 L (3.5-5.2) g/dL Globulin 4.1 (1.3-4.6) g/dL Ethyl Alcohol < 10 (0-10) mg/dL 10/01/19 10/01/19 Range/Units 18:08 20:30 WBC (4.0-10.0) 10^3/ uL RBC (4.1-5.3) 10^6/u L Hgb (11.7-16.6) g/dL Hct (42.0-52.0) % MCV (80-94) fL MCH (28.0-34.0) pg MCHC (30.0-36.0) g/dL RDW (12.1-15.1) % Plt Count (130-400) 10^3/c mm MPV (7.4-10.4) fL Neut % (Auto) % Lymph % (Auto) % [place] % (Auto) % Eos % (Auto) % Baso % (Auto) % Neut # (Auto) (1.8-7.7) 10^3/u L Lymph # (Auto) (0.8-4.8) 10^3/u L [place] # (Auto) (0.2-0.9) 10^3/u L Eos # (Auto) (0.0-0.8) 10^3/u L Baso # (Auto) (0.0-0.1) 10^3/u L Nucleated RBC % (a uto) % Nucleated RBCs # /100WBC PT 62.90 H (10.5-13.3) SECO NDS INR 6.95 H* (0.8-1.2) Specimen Type Arterial Sample Site Radial, left ABG pH 7.50 H (7.35-7.45) ABG pCO2 31.9 L (35-45) mmHg ABG pO2 68.9 L (80.0-100.0) mmH g ABG HCO3 24.7 (22-26) mmol/L ABG Base Excess 2.2 H (-2.0-2.0) mmol/ L Orion Test Pos Hematocrit 43.4 (42-52) % O2 Delivery Device Nc O2 Liters/Min 4.0 % Geospatial Extractor Analysis ID [id number] Sodium (136-145) mmol/L Potassium (3.5-5.1) mmol/L Chloride (98-107) mmol/L Carbon Dioxide (22-29) mmol/L Anion Gap (5-19) BUN (8-23) mg/dL Creatinine (0.7-1.2) mg/dL Glucose (65-115) mg/dL Calculated Osmolal ity (285-295) mOsm/k g Calcium (8.5-10.5) mg/dL Magnesium (1.7-2.3) mg/dL Total Bilirubin (0.15-1.2) mg/dL AST (0-40) U/L ALT (0-41) U/L Alkaline Phosphata se (40-130) IU/L Troponin T Baselin e (0-15) ng/mL NT-Pro-B Natriuret Pep (0-125) pg/mL Total Protein (6.6-8.7) g/dL Albumin (3.5-5.2) g/dL Globulin (1.3-4.6) g/dL Ethyl Alcohol (0-10) mg/dL Imaging Data^: CXR: My impression: Cardiomegaly with decreased inspiration. Radiologist's impression: CT Head: Radiologist's impression: [facility] [address] [place] [address] CT Scan Report Signed Patient: Azam Mccabe Unit #: [id number] : 1945 Age/Sex: 74 / M ADM Date: 10/01/19 Loc: ER Room/Bed: Attending Dr: Ordering Provider/Ordering MD: Myah Duff DO Date of Service: 10/01/19 Procedure(s): CT head wo con* [id number] Accession Number(s): [id number] Report Number: [id number] PROCEDURE INFORMATION: Exam: CT Head Without Contrast Exam date and time: 10/01/2019 6:18 PM Age: 74 years old Clinical indication: Altered mental status/memory loss; Additional info: Gallagher/ams TECHNIQUE: Imaging protocol: Computed tomography of the head without contrast. Radiation optimization: All CT scans at this facility use at least one of these dose optimization techniques: automated exposure control; mA and/or kV adjustment per patient size (includes targeted exams where dose is matched to clinical indication); or iterative reconstruction. COMPARISON: CT head wo con* [id number] 07/11/2019 3:01 PM RADIATION DOSE METRICS: Total DLP: 775.33 mGy-cm FINDINGS: Brain: The there is moderate cortical atrophy. There are low-density changes in the white matter regions in keeping nonspecific small vessel chronic ischemic change. There is no intracranial mass or hemorrhage. Ventricles: Normal. No ventriculomegaly. Bones/joints: Unremarkable. No acute fracture. Sinuses: Visualized sinuses are unremarkable. No fluid levels. Mastoid air cells: Visualized mastoid air cells are well aerated. Soft tissues: Unremarkable. CT/CT head wo con* [id number] IMPRESSION: Atrophy and chronic ischemic changes. No acute intracranial finding. No significant change compared with 07/11/2019. Are Radiation Dose CTDIVOL = (mGy): DLP = 775.33 (mGy-cm) Dictated By: Esteban Urban Signed By: Esteban Urban Signed Date/Time: 10/01/191932 DD/ 31 CT Abd/Pel: Radiologist's impression: [address] [address] [address] Scan Report Signed Patient: Azam Mccabe Unit #: [id number] : 1945 Age/Sex: 74 / M ADM Date: 10/01/19 Loc: ER Room/Bed: Attending Dr: Ordering Provider/Ordering MD: Myah Duff DO Date of Service: 10/01/19 Procedure(s): CT angio abdomen pelvis [id number] Accession Number(s): [id number] Report Number: [id number] PROCEDURE INFORMATION: Exam: CT Angiography Abdomen and Pelvis With Contrast Exam date and time: 10/01/2019 6:46 PM Age: 74 years old Clinical indication: Chest pain; Abdominal pain; Generalized; Prior surgery; Surgery type: Hernia, gb, appy; Additional info: Pain, aaa TECHNIQUE: Imaging protocol: Computed tomographic angiography of the abdomen and pelvis with intravenous contrast material. 3D rendering: MIP and/or 3D reconstructed images were created by the technologist. Radiation optimization: All CT scans at this facility use at least one of these dose optimization techniques: automated exposure control; mA and/or kV adjustment per patient size (includes targeted exams where dose is matched to clinical indication); or iterative reconstruction. Contrast material: OMNI 350; Contrast volume: 95 ml; Contrast route: IV; COMPARISON: CT angio abdomen pelvis [id number] 07/11/2019 7:01 PM RADIATION DOSE METRICS: Total DLP: 1037.64 mGy-cm FINDINGS: Lungs: Dependent density at the lung bases is due to atelectasis Aorta: There are extensive atherosclerotic changes in the abdominal aorta with fusiform aneurysm of the distal abdominal aorta with maximum AP diameter of 4 cm, terminating at the level of the iliac bifurcation. The aneurysm is approximately 5 cm in length. This is an infrarenal abdominal aortic aneurysm. Celiac trunk and mesenteric arteries: No occlusion or significant stenosis. Renal arteries: There is a single renal artery on each side there are atherosclerotic changes in the renal arteries without evidence of stenosis. Right iliac arteries: No occlusion or significant stenosis. Left iliac arteries: No occlusion or significant stenosis. Liver: Liver shows diffusely decreased density in keeping with fatty change. There is no focal abnormality within the liver. Gallbladder and bile ducts: Unremarkable. No calcified stones. No ductal dilation. Pancreas: The pancreas is normal. Spleen: The spleen demonstrates punctate calcifications, consistent with remote granulomatous organism exposure. Adrenals: The adrenal glands are normal. 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 There is moderate perinephric stranding not significantly changed from previous. Stomach and bowel: Unremarkable. No obstruction. No mucosal thickening. Appendix: Not identifiedThere has been a cholecystectomy. Intraperitoneal space: Unremarkable. No free air. No significant fluid collection. Lymph nodes: Unremarkable. No enlarged lymph nodes. Bladder: Unremarkable. No mass. Reproductive: The prostate demonstrates mild nonspecific enlargement. The seminal vesicles are normal. Bones/joints: No acute fracture. No dislocation. Soft tissues: There is no evidence of dissection, leak, rupture, or other acute vascular pathology. Other findings: Findings are not changed from previous. CT/CT angio abdomen pelvis [id number] IMPRESSION: 1. Abdominal aortic aneurysm not significantly changed 2. No evidence of aortic dissection. Radiation Dose CTDIVOL = (mGy): DLP = 1037.64 (mGy-cm) Dictated By: Esteban Urban Signed By: Esteban Urban Signed Date/Time: 10/01/192022 DD/ 21 EKG Data^: EKG 1: Attestation: I personally reviewed and interpreted this EKG as follows: EKG interpretation date: 10/01/19 EKG interpretation time: 17:57 Interpretation: A. fib/flutter with RVR. Nonspecific ST-T wave changes Other EKG comments: Chest X-Ray 10/01/19 17:57 IMPRESSION: Stable chest. Chronic interstitial lung disease with no pneumonia. Head CT 10/01/19 17:57 IMPRESSION: Atrophy and chronic ischemic changes. No acute intracranial finding. No significant change compared with 07/11/2019. Are Radiation Dose CTDIVOL = (mGy): DLP = 775.33 (mGy-cm) Abdomen/Pelvis CTA 10/01/19 18:43 IMPRESSION: 1. Abdominal aortic aneurysm not significantly changed 2. No evidence of aortic dissection. Radiation Dose CTDIVOL = (mGy): DLP = 1037.64 (mGy-cm) Discharge Plan Discharge Patient Disposition: Admitted As Inpatient Admit Provider: Gavin Lyons Clinical Impression: Altered mental status, Atrial fibrillation with RVR, Sepsis Condition: Stable Interventions: ED Discharge Assessment Last Done: 10/01/19 23:59 ED Charges Last Done: 10/01/19 23:59 Discharge Date/Time: 10/02/19 00:21 Coding Level of Care Code ED Simulation Educator for Chg Fwd Exam Comprehensive
[2019-10-01 18:29] LABS: Basophils % 0.1 %; Hematocrit 41.2 % (42.0-52.0); Hemoglobin 13.4 g/dL (11.7-16.6); Lymphocytes # 0.5 10^3/uL (0.8-4.8); Mean Corpuscular HGB Conc 32.5 g/dL (30.0-36.0); Mean Corpuscular Hemoglobin 32.8 pg (28.0-34.0); Mean Platelet Volume 9.9 fL (7.4-10.4); Monocytes # 0.8 10^3/uL (0.2-0.9); Monocytes % 5.7 %; Neutrophils # 12.2 10^3/uL (1.8-7.7); Neutrophils % 89.1 %; Nucleated Red Blood Cells % 0 %; Platelet Count 440 10^3/cmm (130-400); Red Blood Count 4.08 10^6/uL (4.1-5.3); Red Cell Distribution Width 13.5 % (12.1-15.1); White Blood Count 13.7 10^3/uL (4.0-10.0)
--- NOTE | 2019-10-01 18:43 | CTR_ITS ---
PROCEDURE INFORMATION: Exam: CT Angiography Abdomen and Pelvis With Contrast Exam date and time: 10/01/2019 6:46 PM Age: 74 years old Clinical indication: Chest pain; Abdominal pain; Generalized; Prior surgery; Surgery type: Hernia, gb, appy; Additional info: Pain, aaa TECHNIQUE: Imaging protocol: Computed tomographic angiography of the abdomen and pelvis with intravenous contrast material. 3D rendering: MIP and/or 3D reconstructed images were created by the technologist. Radiation optimization: All CT scans at this facility use at least one of these dose optimization techniques: automated exposure control; mA and/or kV adjustment per patient size (includes targeted exams where dose is matched to clinical indication); or iterative reconstruction. Contrast material: OMNI 350; Contrast volume: 95 ml; Contrast route: IV; COMPARISON: CT angio abdomen pelvis [id number] 07/11/2019 7:01 PM RADIATION DOSE METRICS: Total DLP: 1037.64 mGy-cm FINDINGS: Lungs: Dependent density at the lung bases is due to atelectasis Aorta: There are extensive atherosclerotic changes in the abdominal aorta with fusiform aneurysm of the distal abdominal aorta with maximum AP diameter of 4 cm, terminating at the level of the iliac bifurcation. The aneurysm is approximately 5 cm in length. This is an infrarenal abdominal aortic aneurysm. Celiac trunk and mesenteric arteries: No occlusion or significant stenosis. Renal arteries: There is a single renal artery on each side there are atherosclerotic changes in the renal arteries without evidence of stenosis. Right iliac arteries: No occlusion or significant stenosis. Left iliac arteries: No occlusion or significant stenosis. Liver: Liver shows diffusely decreased density in keeping with fatty change. There is no focal abnormality within the liver. Gallbladder and bile ducts: Unremarkable. No calcified stones. No ductal dilation. Pancreas: The pancreas is normal. Spleen: The spleen demonstrates punctate calcifications, consistent with remote granulomatous organism exposure. Adrenals: The adrenal glands are normal. 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 There is moderate perinephric stranding not significantly changed from previous. Stomach and bowel: Unremarkable. No obstruction. No mucosal thickening. Appendix: Not identifiedThere has been a cholecystectomy. Intraperitoneal space: Unremarkable. No free air. No significant fluid collection. Lymph nodes: Unremarkable. No enlarged lymph nodes. Bladder: Unremarkable. No mass. Reproductive: The prostate demonstrates mild nonspecific enlargement. The seminal vesicles are normal. Bones/joints: No acute fracture. No dislocation. Soft tissues: There is no evidence of dissection, leak, rupture, or other acute vascular pathology. Other findings: Findings are not changed from previous. CT/CT angio abdomen pelvis [id number] IMPRESSION: 1. Abdominal aortic aneurysm not significantly changed 2. No evidence of aortic dissection. Radiation Dose CTDIVOL = (mGy): DLP = 1037.64 (mGy-cm)
[2019-10-01 19:16] LABS: Alanine Aminotransferase 80 U/L (0-41); Alkaline Phosphatase 271 IU/L (40-130); Anion Gap 19.7 (5-19); Aspartate Amino Transferase 86 U/L (0-40); Blood Urea Nitrogen 16 mg/dL (8-23); Calcium 8.9 mg/dL (8.5-10.5); Carbon Dioxide 23 mmol/L (22-29); Chloride 93 mmol/L (98-107); Globulin 4.1 g/dL (1.3-4.6); Glucose 225 mg/dL (65-115); Magnesium 1.7 mg/dL (1.7-2.3); NT Pro B Type Natriuretic Pept 1151 pg/mL (0-125); Osmolality Calculated 275 mOsm/kg (285-295); Potassium 4.7 mmol/L (3.5-5.1); Sodium 131 mmol/L (136-145); Total Bilirubin 0.8 mg/dL (0.15-1.2); Total Protein 7.1 g/dL (6.6-8.7)
[2019-10-01 19:17] LABS: Alcohol Level < 10 mg/dL (0-10); Troponin(5th) Baseline 17 ng/mL (0-15)
[2019-10-01] MEDS: iohexol 350 mg/mL 100 mL Btl IV (19:45)
[2019-10-01] MEDS: levofloxacin-dextrose 5 % 750 MG/150 ML PREMIX 150 MG IV (20:28)
[2019-10-01 20:36] LABS: ABG PCO2 31.9 mmHg (35-45); Arterial Blood Gas Hematocrit 43.4 % (42-52); Base Excess ABG 2.2 mmol/L (-2.0-2.0); Blood Gas Allen Test Pos; Blood Gas Sample Site Radial, left; Blood Gas Sample Type Arterial; HCO3 ABG 24.7 mmol/L (22-26); Oxygen Device NC; PO2 ABG 68.9 mmHg (80.0-100.0)
[2019-10-01 20:38] LABS: INR 6.95 (0.8-1.2)
[2019-10-01 21:14] LABS: Lactic Sepsis W/Reflex 1.6 mmol/L (0.5-2.2); Troponin 5 2HR 29.88 ng/mL (0-15)
[2019-10-01 21:34] LABS: Troponin 5 2HR Delta 12.88 ABS# (0-10)
[2019-10-01 21:57] LABS: Thyroid Stimulating Hormone 0.21 uIU/mL (0.27-4.20)
--- NOTE | 2019-10-01 22:10 | PM.HP ---
Providers/Chief Complaint Chief Complaint: AMS/Afib with RVR History of Present Illness Azam Mccabe is a 74 year old male with past medical history of COPD, diabetes, atrial fibrillation, on Coumadin, possible history of frequent alcohol intake who was brought to emergency room due to significant confusion. The details of the recent changes are unknown. In the emergency room he was found to have A. fib with RVR. Severely confused and unable to provide history. The patient also is hypertensive, febrile. There is tachypnea. INR was severely increased. ABGs showed hypoxia and hyperventilation. The patient had similar admission last June. At that time he was diagnosed with sepsis of unknown origin. He was stabilized with antibiotics. However the source of infection was not identified. 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 However the UA was unremarkable according to the summary. Review of Systems General: Reports: ROS unobtainable due to mental status Medications/Allergies Home Medications Medication Instructions Recorded Confirmed Last Taken Type acetaminophen [Acetaminophen Extra 500 - 1,000 mg PO QID PRN 07/11/19 09/28/19 07/11/19 History Strength] allopurinol 100 mg PO DAILY 07/11/19 09/28/19 07/11/19 History budesonide-formoterol [Symbicort] 2 puff INHALATION BID 07/11/19 09/28/19 07/11/19 History colchicine 0.6 mg PO PRN PRN 07/11/19 09/28/19 07/11/19 History melatonin See Rx Instructions .ROUTE .COMPLEX 07/11/19 09/28/19 07/10/19 History sertraline 150 mg PO DAILY 07/11/19 09/28/19 07/11/19 History warfarin See Rx Instructions .ROUTE .COMPLEX 07/11/19 09/28/19 07/10/19 History albuterol sulfate [ProAir HFA] 2 puff INHALATION QID PRN 09/28/19 09/28/19 Unknown History alogliptin 25 mg PO DAILY 09/28/19 09/28/19 Unknown History atorvastatin [Lipitor] 40 mg PO DAILY 09/28/19 09/28/19 Unknown History cholecalciferol (vitamin D3) 50 mcg PO DAILY 09/28/19 09/28/19 Unknown History diltiazem HCl 240 mg PO QAM 09/28/19 09/28/19 Unknown History metaxalone [Skelaxin] 800 mg PO TID PRN #20 tab 09/28/19 Unknown Rx metformin 1,000 mg PO BID 09/28/19 09/28/19 Unknown History metoprolol succinate [Toprol XL] 50 mg PO DAILY #20 tab 09/28/19 Unknown Rx multivitamin [Multiple Vitamins] 1 tab PO DAILY 09/28/19 09/28/19 Unknown History prazosin 2 mg PO BEDTIME 09/28/19 09/28/19 Unknown History senna 17.2 mg PO BID 09/28/19 09/28/19 Unknown History tamsulosin [Flomax] 0.4 mg PO QPM 09/28/19 09/28/19 Unknown History tramadol 50 mg PO Q6H PRN #20 tab 09/28/19 Unknown Rx Allergies Allergy/AdvReac Type Severity Reaction Status Date / Time Penicillins Allergy Unknown Verified 07/11/19 13:11 PFSH Acute PFSH: Medical History Abdominal aortic aneurysm -has known AAA, 4.1 cm in size, no rupture or change on CT Atrial fibrillation -has known hx of atrial fibrillation -rate controlled -telemetry monitoring -on AC with therapeutic Lovenox, will resume coumadin; INR-1.80 -continue metoprolol Diabetes mellitus Hypertension -BP controlled, continue oral antihypertensives -continue to monitor vital signs Peripheral vascular disease Surgical History History of herniorrhaphy History of orthopedic surgery Right shoulder Hx of cholecystectomy Family History Father CAD (coronary artery disease) Social History Smoking and tobacco status: unknown if ever smoked Alcohol intake: current Alcohol intake frequency: few times a week Vitals/I&O/Wt Last Vital Signs Temp 99.7 F H 10/01/19 17:52 Pulse 137 H 10/01/19 17:58 Resp 18 10/01/19 17:58 BP 173/99 10/01/19 17:58 Pulse Ox 98 10/01/19 17:58 Weight last 48 hrs Weight 108.862 kg Physical Exam Narrative: EXAM NARRATIVE: Patient is severely confused. He is awake but unresponsive. No clear speech. The face is hyperemic and the skin is warm. Moderate distress. Agitation. Skin is warm and dry. Dry mucous membranes. Eyes PERRLA, extra muscles intact. No facial asymmetry. Moves all extremities. Neck is supple. No JVD Lungs bibasilar crackles, more on the left. Mild tachypnea. No accessory muscle use. Heart. S1-S2 irregular fast Abdomen is soft, nontender, bowel sounds are present, distended. Extremities trace bilateral pedal edema. No cyanosis no calf tenderness bilaterally Urinary Catheter Management^: Benson: Cath Placed During This Visit: yes Urinary Catheter Date of Insertion: 10/01/19 Urinary Catheter Time of Insertion: 21:28 Data : 10/01/19 18:08 10/01/19 18:08 Other Labs: Laboratory Results WBC 13.7 10^3/uL (4.0-10.0) H 10/01/19 18:08 RBC 4.08 10^6/uL (4.1-5.3) L 10/01/19 18:08 Hgb 13.4 g/dL (11.7-16.6) 10/01/19 18:08 Hct 41.2 % (42.0-52.0) L 10/01/19 18:08 MCV 101.0 fL (80-94) H 10/01/19 18:08 MCH 32.8 pg (28.0-34.0) 10/01/19 18:08 MCHC 32.5 g/dL (30.0-36.0) 10/01/19 18:08 RDW 13.5 % (12.1-15.1) 10/01/19 18:08 Plt Count 440 10^3/cmm (130-400) H 10/01/19 18:08 MPV 9.9 fL (7.4-10.4) 10/01/19 18:08 Neut % (Auto) 89.1 % 10/01/19 18:08 Lymph % (Auto) 4.0 % 10/01/19 18:08 [place] % (Auto) 5.7 % 10/01/19 18:08 Eos % (Auto) 0.0 % 10/01/19 18:08 Baso % (Auto) 0.1 % 10/01/19 18:08 Neut # (Auto) 12.2 10^3/uL (1.8-7.7) H 10/01/19 18:08 Lymph # (Auto) 0.5 10^3/uL (0.8-4.8) L 10/01/19 18:08 [place] # (Auto) 0.8 10^3/uL (0.2-0.9) 10/01/19 18:08 Eos # (Auto) 0.0 10^3/uL (0.0-0.8) 10/01/19 18:08 Baso # (Auto) 0.0 10^3/uL (0.0-0.1) 10/01/19 18:08 Nucleated RBC % (auto) 0 % 10/01/19 18:08 Nucleated RBCs # 0.0 /100WBC 10/01/19 18:08 PT 62.90 SECONDS (10.5-13.3) H 10/01/19 18:08 INR 6.95 (0.8-1.2) H* 10/01/19 18:08 Specimen Type Arterial 10/01/19 20:30 Sample Site Radial, left 10/01/19 20:30 ABG pH 7.50 (7.35-7.45) H 10/01/19 20:30 ABG pCO2 31.9 mmHg (35-45) L 10/01/19 20:30 ABG pO2 68.9 mmHg (80.0-100.0) L 10/01/19 20:30 ABG HCO3 24.7 mmol/L (22-26) 10/01/19 20:30 ABG Base Excess 2.2 mmol/L (-2.0-2.0) H 10/01/19 20:30 Orion Test Pos 10/01/19 20:30 Hematocrit 43.4 % (42-52) 10/01/19 20:30 O2 Delivery Device Nc 10/01/19 20:30 O2 Liters/Min 4.0 % 10/01/19 20:30 Director Imaging ID [email or web address] 10/01/19 20:30 Sodium 131 mmol/L (136-145) L 10/01/19 18:08 Potassium 4.7 mmol/L (3.5-5.1) 10/01/19 18:08 Chloride 93 mmol/L (98-107) L 10/01/19 18:08 Carbon Dioxide 23 mmol/L (22-29) 10/01/19 18:08 Anion Gap 19.7 (5-19) H 10/01/19 18:08 BUN 16 mg/dL (8-23) 10/01/19 18:08 Creatinine 0.7 mg/dL (0.7-1.2) 10/01/19 18:08 Glucose 225 mg/dL (65-115) H 10/01/19 18:08 Calculated Osmolality 275 mOsm/kg (285-295) L 10/01/19 18:08 Lactic Acid 1.6 mmol/L (0.5-2.2) 10/01/19 20:41 Calcium 8.9 mg/dL (8.5-10.5) 10/01/19 18:08 Magnesium 1.7 mg/dL (1.7-2.3) 10/01/19 18:08 Total Bilirubin 0.8 mg/dL (0.15-1.2) 10/01/19 18:08 AST 86 U/L (0-40) H 10/01/19 18:08 ALT 80 U/L (0-41) H 10/01/19 18:08 Alkaline Phosphatase 271 IU/L (40-130) H 10/01/19 18:08 Troponin T Baseline 17 ng/mL (0-15) H 10/01/19 18:08 Troponin T 120 Minute 29.88 ng/mL (0-15) H 10/01/19 20:41 Delta Troponin T 12.88 ABS# (0-10) H* 10/01/19 20:41 NT-Pro-B Natriuret Pep 1151 pg/mL (0-125) H 10/01/19 18:08 Total Protein 7.1 g/dL (6.6-8.7) 10/01/19 18:08 Albumin 3.0 g/dL (3.5-5.2) L 10/01/19 18:08 Globulin 4.1 g/dL (1.3-4.6) 10/01/19 18:08 TSH 0.21 uIU/mL (0.27-4.20) L 10/01/19 20:41 Ethyl Alcohol < 10 mg/dL (0-10) 10/01/19 18:[address] 10/01/19 17:57 IMPRESSION: Atrophy and chronic ischemic changes. No acute intracranial finding. No significant change compared with 07/11/2019. Are Radiation Dose CTDIVOL = (mGy): DLP = 775.33 (mGy-cm) Abdomen/Pelvis CTA 10/01/19 18:43 IMPRESSION: 1. Abdominal aortic aneurysm not significantly changed 2. No evidence of aortic dissection. Radiation Dose CTDIVOL = (mGy): DLP = 1037.64 (mGy-cm) EKG. A. fib with RVR. Micro: Microbiology 10/01/19 20:00 Blood Culture - Preliminary Blood SPECIMEN COLLECTED 10/01/19 18:08 Blood Culture - Preliminary Blood SPECIMEN COLLECTED A&P Additional A&P Information 74-year-old gentleman with past medical history of diabetes, atrial fibrillation, on Coumadin, COPD, possible excessive alcohol who is being admitted for severe sepsis. Severe sepsis. Chest x-ray shows possible pneumonia. Please review official radiology report when it is available. There was no urine sample to evaluate for possible UTI. I am ordering Benson catheter and urine culture. The patient will go to ICU. We will continue IV fluids. Checking lactic acid level. I also asked the ER physician to order COVID testing. Ordering procalcitonin. Starting the patient on vancomycin per pharmacy dosing and aztreonam because the patient has allergy to penicillin. Blood cultures are obtained. Acute metabolic encephalopathy secondary to above. Other possibilities: Delirium tremens, urinary retention in settings of UTI, possible side effect to hydrocodone which he received at home. We will check his TSH level. Neuro checks in ICU settings. Possible delirium tremens. Will start management per CIWA protocol. IV fluids. Seizure precautions. Banana bag and thiamine replacement. Acute coagulopathy secondary to warfarin. No evidence of bleeding. Holding his home Coumadin and monitoring INR daily. If it goes beyond 9 we will use vitamin K. Monitor CBC. Abnormal LFTs. This could be secondary to sepsis. I will order ultrasound of the right upper quadrant. Mild hypoxia. This could be secondary to COPD. I will ask respiratory therapy evaluation. DuoNeb treatments. Supplemental oxygen as needed. A. fib with RVR. Probably secondary to above. Currently on diltiazem drip. Improved heart rate. Uncontrolled hypertension. Will manage it with diltiazem. Will use as needed labetalol as well. Diabetes. Insulin sliding scale. Possible urinary retention. Benson catheter. AAA. Stable for new CT report. Critical care time spent on this encounter is 60 minutes. Attestations Medical Necessity Statement*: Patient is being admitted to ICU in critical condition. Will require more than 2 midnights. Coding Level of Care Code Acute Outboard Motor Tester for Patrick Baez
[2019-10-01] MEDS: folic acid 1 MG, multivitamin inj 10 ML, thiamine 100 MG in sodium chloride 0.9% 1,000 ML 252.8 MG IV (22:37)
[2019-10-01] MEDS: aztreonam 2,000 MG in sodium chloride 0.9% (plus) 100 ML 200 MG IV (22:38)
[2019-10-01 23:03] LABS: Amphetamines Screen Urine Negative (Negative); Barbiturates Screen Urine Negative (Negative); Benzodiazepines Screen Urine Negative (Negative); Cocaine Screen Urine Negative (Negative); Opiate Screen Urine Positive (Negative); PCP Screen Urine Negative (Negative); THC Screen Urine Negative (Negative)
[2019-10-01 23:05] LABS: Bilirubin Urine Neg (NEGATIVE); Blood Urine 2+ (Negative); Glucose Urine UA 1+ (Normal); Ketones Urine 1+ (Negative); Leukocyte Esterase Urine Negative (Negative); Nitrate Urine Negative (Negative); Protein Urine Neg (Negative); Specific Gravity, Urine 1.015 (1.005-1.030); Urine Appearance Clear (CLEAR); Urine Color Yellow (Yellow); Urobilinogen Urine 1 mg/dL (Negative); pH Urine 5 (5-7)
[2019-10-01 23:06] LABS: Bacteria Urine 1+; RBC Urine 0-4 /hpf (0-2); Squamous Epithelial Cell Urine RARE (0-5); WBC Urine RARE /hpf (0-5)
--- NOTE | 2019-10-01 23:58 | ECG_ITS ---
Measurements Intervals [place] Rate: 110 P: NV: 0 QRS: 48 QRSD: 91 T: 32 QT: 317 QTc: 429 ATRIAL FIBRILLATION WITH RAPID VENTRICULAR RESPONSE ABNORMAL RHYTHM ECG Compared to ECG 09/28/2019 15:41:55 T-wave abnormality no longer present Electronically Signed On 10-02-2019 19:47:45 CDT by Ntaaly Ramirez M.D. [email or web address]
[2019-10-01 23:59] VITALS: BP 195/89; PULSE 118; RESP 18; O2SAT 96
[2019-10-02] VITALS (53 sets, daily range): BP systolic 83–165; BP diastolic 60–118; PULSE 77–124; RESP 9–47; TEMP 36.6–39.5; O2SAT 88–98
[2019-10-02] MEDS: sodium chloride 0.9% 1,000 ML 100 ML IV (01:32)
[2019-10-02] MEDS: acetaminophen 650 mg Supp PR ×3 (01:33→16:27)
[2019-10-02 02:49] LABS: Procalcitonin 0.38 ng/mL (0-0.5)
[2019-10-02] MEDS: LORazepam 2 mg/mL INJ 1 mL IVP ×2 (04:03→11:00)
[2019-10-02] MEDS: aztreonam 2,000 MG in sodium chloride 0.9% (plus) 100 ML 200 MG IV ×3 (05:35→23:53)
[2019-10-02 05:55] LABS: Basophils # 0.1 10^3/uL (0.0-0.1); Basophils % 0.2 %; Hemoglobin 13.5 g/dL (11.7-16.6); Lymphocytes # 1.2 10^3/uL (0.8-4.8); Lymphocytes % 5.8 %; Mean Corpuscular HGB Conc 30.7 g/dL (30.0-36.0); Mean Corpuscular Hemoglobin 32.8 pg (28.0-34.0); Mean Corpuscular Volume 106.8 fL (80-94); Mean Platelet Volume 10.4 fL (7.4-10.4); Monocytes # 1.6 10^3/uL (0.2-0.9); Monocytes % 7.8 %; Neutrophils # 17.1 10^3/uL (1.8-7.7); Neutrophils % 85.1 %; Nucleated Red Blood Cells % 0 %; Platelet Count 395 10^3/cmm (130-400); Red Blood Count 4.12 10^6/uL (4.1-5.3); Red Cell Distribution Width 14.2 % (12.1-15.1); White Blood Count 20.1 10^3/uL (4.0-10.0)
--- NOTE | 2019-10-02 07:50 | P.PN_ITS ---
Subjective Subjective: Interval history: Patient currently with significant tachypnea and abdominal breathing. He is agitated. Have ordered a stat ABG. He is more tachycardic than he has been but his fever is up a little bit. Blood pressures remain elevated but not as much as they had been earlier. Saturations are running right around 92%. I cannot really get any information from him. CBC is back for this morning but other morning labs are still pending. Medications: Reviewed: Yes Vitals/I&O/Wt Last Vital Signs Temp 100.1 F H 10/02/19 06:00 Pulse 108 H 10/02/19 06:00 Resp 25 H 10/02/19 06:00 BP 135/91 10/02/19 06:00 Pulse Ox 94 10/02/19 06:00 10/01/19 10/02/19 10/02/19 22:59 06:59 14:59 Intake Total 181.75 / 181.75 Output Total 1150 / 1150 Balance -968.25 / -968.25 Current heart rate at the time of my examination is running 120s to 130s and irregular. Weight last 48 hrs Weight 108.862 kg Physical Exam Const: OTHER: Points to touch but not to name. Mumbles. Does have purposeful movements but not fully cooperating. HENMT: OTHER: Face is flushed, oropharynx with dried blood noted, not able to actually visualize any old wounds but there is no gross evidence of active or ongoing bleeding. Mucous membranes are dry though he is mouth breathing at the moment Eye: OTHER: Pupils are equal bilaterally Neck/C-Spine: OTHER: Supple Resp: OTHER: Upper airway noise, lungs are rather clear, does have abdominal breathing and some mild supraclavicular retractions, tachypneic Cardio: OTHER: Tachycardic, irregular, not able to appreciate any murmurs or rubs but his moaning makes it challenging GI: OTHER: Abdomen soft, moans when you touch his abdomen but location not consistent. No obvious rebound or guarding, decreased bowel sounds : OTHER: Jacob noted, normal external genitalia Extremity: NARRATIVE EXTREMITY EXAM: No pitting edema, no red or warm joints noted Neuro: OTHER: Face symmetric, moves all extremities, some intentional movements such as trying to pull away and arm where an IV is being placed but not following commands, no tremors but restless Skin: NARRATIVE SKIN EXAM: A skin, some scattered abrasions, he is generally flushed. No obvious wounds. A few minor bruises Urinary Catheter Management^: Jacob: Cath Placed During This Visit: yes Urinary Catheter Date of Insertion: 10/01/19 Urinary Catheter Time of Insertion: 21:28 Data : 10/02/19 05:32 10/02/19 07:45 Other Labs: labs from last night and this morning of been reviewed Micro: Microbiology 10/01/19 20:00 Blood Culture - Preliminary Blood SPECIMEN COLLECTED 10/01/19 18:08 Blood Culture - Preliminary Blood SPECIMEN COLLECTED CXR: I personally reviewed and interpreted this imaging study as follows: My impression: Chest x-ray from last night shows atelectasis and granulomatous changes on the right as well as some hazy opacities in both bases. No large infiltrates noted A&P Assessment and plan (1) Severe sepsis: Presumptive diagnosis at the time of admission based on fever, leukocytosis, tachycardia. Procalcitonin was normal. X-ray with some at electasis. Urinalysis really unremarkable. No definitive source of infection currently be being covered empirically for possibility of pneumonia. Similar presentation in June. Due to chronic anticoagulation has not been able to get a lumbar puncture done. He has baseline mental status issues though will need some clarification on this. Status: Acute (2) Acute metabolic encephalopathy: On top of baseline cognitive issues which I believe are related to chronic alcohol use Status: Acute (3) Respiratory failure with hypoxia: Acute. Not known to be chronic. Notes indicate possibility of COPD. He is a former smoker. Status: Acute Qualifiers: Chronicity: acute Qualified Code(s): J96.01 - Acute respiratory failure with hypoxia (4) Suspected COVID-19 virus infection: Testing sent from the ER. Status: Acute (5) Atrial fibrillation with RVR: Known chronic atrial fibrillation, her medication list shows beta- blockade, currently on diltiazem drip here Status: Acute (6) Hypertension: Initially with hypertensive urgency blood pressures have come down Status: Chronic Qualifiers: Hypertension type: essential hypertension Qualified Code(s): I10 - Essential (primary) hypertension (7) Warfarin-induced coagulopathy: Initial INR 6.95 Status: Chronic (8) Diabetes mellitus: Review of home medication list indicates he has been on metformin and alogliptin Status: Chronic Qualifiers: Diabetes mellitus complication status: with hyperglycemia Diabetes mellitus group home insulin use: with group home use Diabetes mellitus type: type 2 Qualified Code(s): E11.65 - Type 2 diabetes mellitus with hyperglycemia; 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 Received a banana bag last night. Blood alcohol level at admission was low suggesting this could be from acute alcohol withdrawal Status: Chronic Additional A&P Information -Macrocytosis, likely related to chronic alcohol use and vitamin deficiency -Elevated BNP >> echocardiogram done in June of this year showed an ejection fraction of 55% with moderate pulmonary hypertension with a right ventricular systolic pressure of 43.7 millimeters of mercury, exam he appears dry presently -Elevated troponin of currently unclear significance, no clear history of coronary artery disease, may be type II process related to A. fib with RVR, only nonspecific ST segment changes without elevation -low TSH without prior history -Elevated transaminases -History of gout Stat ABG Follow-up morning labs for today Follow-up official chest x-ray interpretation Continue current antibiotics which include vancomycin, aztreonam and Levaquin Monitor respiratory status closely Continue Cardizem drip currently Add some beta-blockade Recheck EKG Add aspirin, currently rectal Hold statin presently due to n.p.o. status We will give a liter bolus of saline as patient appears clinically dry at the moment Monitor volume status closely Fever control Add CIWA protocol On thiamine Check free T3 and free T4 Add H2 blockade Continue to hold Coumadin, daily INR Insulin therapy and monitoring of blood sugars, will likely need to add long- acting Continue jacob for close monitoring of urine output Sitter given history of significant confusion/agitation SCDs for DVT prophylaxis Supportive care otherwise Full code Attestations Medical Necessity Statement*: Requires ongoing inpatient care due to multiple issues as noted above. At high risk of rapid clinical decline. Critical Care Time: The high probability of a clinically significant, sudden or life threatening deterioration of the patient's cardiopulmonary system(s) required my full and direct attention, intervention and personal management. The critical care time is as shown. This time is in addition to time spent performing any reported procedures but includes the following: [x] Data and vital sign review and interpretation [x] Patient assessment, examination and intervention [x] Documentation [x] Medication orders and management Critical Care Time (min): 45 Coding Level of Care Code Acute Inorganic Chemical Technician for [facility] Fwd Diagnoses Severe sepsis A41.9; R65.20 Acute metabolic encephalopathy G93.41 Respiratory failure with hypoxia J96.01 Chronicity: acute Suspected COVID-19 virus infection Z20.828 Atrial fibrillation with RVR I48.91 Hypertension I10 Hypertension type: essential hypertension Warfarin-induced coagulopathy D68.32; T45.515A Diabetes mellitus E11.65; Z79.4 Diabetes mellitus complication status: with hyperglycemia Diabetes mellitus group home insulin use: with intermediate manager use Diabetes mellitus type: type 2 Aortic stenosis I35.0 Cardiac valve disease etiology: etiology unspecified COPD (chronic obstructive pulmonary disease) J44.9 COPD type: unspecified COPD Chronic alcohol dependence, continuous F10.20
[2019-10-02 08:18] LABS: ABG PCO2 29.2 mmHg (35-45); ABG PH Result 7.52 (7.35-7.45); Arterial Blood Gas Hematocrit 42.3 % (42-52); Base Excess ABG 1.7 mmol/L (-2.0-2.0); Blood Gas Allen Test Pos; Blood Gas Sample Site Radial, left; Blood Gas Sample Type Arterial; HCO3 ABG 23.7 mmol/L (22-26); Oxygen Device NC; PO2 ABG 66.3 mmHg (80.0-100.0)
[2019-10-02 08:21] LABS: Alanine Aminotransferase 61 U/L (0-41); Albumin Level 2.6 g/dL (3.5-5.2); Alkaline Phosphatase 247 IU/L (40-130); Anion Gap 17.6 (5-19); Blood Urea Nitrogen 18 mg/dL (8-23); Calcium 8.3 mg/dL (8.5-10.5); Carbon Dioxide 22 mmol/L (22-29); Chloride 97 mmol/L (98-107); Globulin 4.4 g/dL (1.3-4.6); Glucose 211 mg/dL (65-115); Magnesium 1.9 mg/dL (1.7-2.3); Osmolality Calculated 277 mOsm/kg (285-295); Phosphorus 2.1 mg/dL (2.5-4.5); Potassium 4.6 mmol/L (3.5-5.1); Sodium 132 mmol/L (136-145); Total Bilirubin 0.8 mg/dL (0.15-1.2)
[2019-10-02 08:22] LABS: Partial Thromboplastin Time 77.1 SECONDS (23.9-36.7)
[2019-10-02 09:03] LABS: Aspartate Amino Transferase 58 U/L (0-40)
[2019-10-02 09:27] LABS: Troponin T (5th) Once 74 ng/mL (0-15)
[2019-10-02 09:59] LABS: Free T4 Free Thyroxine 1.27 ng/dL (0.82-1.77); Lipase 39 U/L (13-60); T3 Free 1.8 PG/ML (2.0-4.4)
[2019-10-02 11:19] LABS: ABG PCO2 33.9 mmHg (35-45); ABG PH Result 7.47 (7.35-7.45); Arterial Blood Gas Hematocrit 40.7 % (42-52); Base Excess ABG 1.3 mmol/L (-2.0-2.0); Blood Gas Allen Test Pos; Blood Gas Sample Site Radial, left; Blood Gas Sample Type Arterial; HCO3 ABG 24.5 mmol/L (22-26); Oxygen Device NC; PO2 ABG 66.6 mmHg (80.0-100.0)
[2019-10-02 11:38] LABS: Glucose Point of Care 180 mg/dL (70-110)
[2019-10-02 11:38] LABS: Glucose Point of Care 212 mg/dL (70-110)
[2019-10-02] MEDS: succinylcholine 20 mg/mL SDV 10mL 150 MG IV (12:54)
[2019-10-02] MEDS: midazolam 1 mg/mL INJ 2 mL 5 MG IVP (12:54)
--- NOTE | 2019-10-02 13:00 | XR_ITS ---
WS: [id number] PORTABLE CHEST HISTORY: Post-intubation COMPARISON: 10/01/2019 Endotracheal and nasogastric tubes are in good position. Mild haziness over the central RIGHT lung. Peribronchial thickening on the RIGHT. No pleural effusion or pneumothorax. Cardiac size: Normal. Mediastinum/Aorta: Mild atherosclerosis aorta. No osseous abnormality seen. XR/XR chest 1V portable [id number] IMPRESSION: 1. Satisfactory placement of the endotracheal and nasogastric tubes. Distal ex tent of the NG tube is not evident. 2. Mild interstitial thickening over the central RIGHT lung may be due to aspi ration pneumonia or pneumonitis.
[2019-10-02] MEDS: propofol 1,000 MG/100 ML INJ 3.3 MG IV (13:38)
--- NOTE | 2019-10-02 14:02 | P.PCN_ITS ---
Acute Procedures Central Line Placement^: Right Femoral: Time out performed: Yes Patient placed on monitor/pulse ox: Yes MD prep: mask, gown and gloves Central line prep: Povidone-Iodine 1%, Chlorhexidine scrub and sterile drapes applied Local anesthesia used: lidocaine 1% (3 ml) Ultrasound used for placement: No Central line lumen inserted: triple Post procedure: sutured in place, good blood return, all ports aspirated, flushed, capped and sterile dressing applied Patient tolerated procedure: well Complications: none Additional comments: Decision was made to place central line as she had had some challenges getting IVs in place and maintaining them. With INR at 6.95, decision was made to go on and place line in the right femoral area to help minimize any potential complications from bleeding that might arise. Patient was prepped and draped in a sterile fashion. Landmarks were identified. 3 mL's of lidocaine were used for anesthesia. Right femoral vein was entered without any difficulty on first stick. Line was placed via Seldinger technique. All lines flushed easily. Less than 5 mL's blood loss noted, heart from blood which was aspirated for procedure of about 3 mL's. Line was sutured in place and dressed by me with sterile dressing. Line is available for immediate use. Nursing staff instructed to keep an eye on it for any signs of hematoma but in the timeframe after placement I did not see any. No significant oozing around the entry site either. I did have an opportunity to discuss with the central line placement as well and she gave verbal consent for this again confirmed by nursing staff, Alba. Feeding Tube Replacement: Type of tube: nasogastric Insertion site prior to procedure: clean Tube used for reinsertion: other (NGT) Verification of placement: auscultation and other (Imaging) Tube secured by: tape/dressing Patient tolerated procedure: well and no complications Additional comments: For clarification this procedure is for an NG tube placement (not feeding tube replacement) NG tube was placed by me at the bedside. Minimal resistance was met in the posterior nasopharynx but with only slight adjustments I was able to easily pass the tube remainder of the way. It was verified by auscultation. No gross bleeding was noted coming from the nares or from the NG tube. Intubation: Time out performed: Yes Sedative: etomidate (20mg) Paralytic: succinylcholine (200mg) Laryngoscope: fiber optic video scope ET tube size: 8 ET tube uncuffed: Yes Tube secured depth (cm): 24 Tube secured location: lips Tube placement confirmation: visualized tube passing through cords, equal breath sounds bilaterally, no breath sounds over epigastrium and color change noted Patient tolerated procedure: well Intubation complications: none Additional comments: Decision was made to proceed with intubation. I had been planning on proceeding emergently as we had been unable to get in touch with family but I was able to talk with patient's just prior to procedure. She gave verbal consent which was confirmed by the nursing staff and care of him today. Patient's respiratory rate has continued to be in the 30s to 40s. Repeat blood gas showed continued respira tory alkalosis. Patient was using more significant supraclavicular and intercostal retractions along with continued abdominal breathing and open mouth breathing. Patient received, in addition to etomidate and succinylcholine 5 mg of Versed for rapid sequence intubation. I initially evaluated with MAC 4. Patient's oropharynx had a lot of dried blood around the distal tongue and mucosal surfaces but more posteriorly he had a lot of sputum. Suction revealed a conglomerate of sputum that was approximately 6 cm long and about a centimeter or maybe three quarters of a centimeter in diameter. It was mixed with blood but was predominantly mucus. I ended up changing to glide scope. Additional suctioning was undertaken. Vocal cords were able to be visualized after this. 8 oh ET tube was seen passing through the cords without difficulty. Positive color change. It was secured 24 at the lip. Awaiting chest x-ray for confirmation.
[2019-10-02] MEDS: famotidine 20 mg/2 mL INJ IVP ×2 (14:54→20:35)
[2019-10-02] MEDS: sodium chloride 0.9% 500 ML IV (14:56)
[2019-10-02] MEDS: sodium chloride 0.9% 1,000 ML 125 ML IV ×2 (15:03→21:43)
[2019-10-02] MEDS: fentaNYL 50 mcg/mL INJ 2mL IVP (15:17)
[2019-10-02] MEDS: propofol 1,000 MG/100 ML INJ 26.1 MG IV ×3 (16:25→23:48)
[2019-10-02] MEDS: aspirin 300 mg Supp PR (16:27)
[2019-10-02 17:02] LABS: ABG PCO2 32.1 mmHg (35-45); ABG PH Result 7.47 (7.35-7.45); Alveolar-Arterial Oxygen Gradi 80.4 mmHg (5-10); Blood Gas Allen Test Pos; Blood Gas Sample Site Radial, left; Blood Gas Sample Type Arterial; Blood Gas Tidal Volume 0.5; Carboxyhemoglobin 0.6 %THgb (0.4-20.1); HCO3 ABG 23.1 mmol/L (22-26); HGB O2 Sat 96.6 % (95-100); Ionized Calcium Level - ABG 1.1 mmol/L (1.1-1.4); Methemoglobin 0.5 % (0.4-1.5); Oxygen Device VENT; Oxygen Saturation ABG 97.6; PO2 ABG 90.8 mmHg (80.0-100.0); Potassium Level - ABG 3.9 mmol/L (3.5-5.0); Total Hemoglobin 12.7 g/dL (14-18)
--- NOTE | 2019-10-02 19:47 | XR_ITS ---
WS: [id number] ABDOMEN 1 VIEW(S) HISTORY: NG TUBE PLACEMENT COMPARISON: 07/13/2019. Prior CT abdomen 10/01/2019 Nasogastric tube has been placed with tip in the stomach. Calcification is curvilinear in the LEFT abdomen adjacent to the spine from a known aortic aneurysm. The extent of bowel gas and dilatation has improved since the CT of 10/01/2019. There is still increas ed air fluid within the GI tract. No bone abnormality. XR/XR KUB portable [id number] IMPRESSION: 1. Satisfactory placement of the nasogastric tube. 2. Moderate improvement in GI tract air and fluid distention.
--- NOTE | 2019-10-02 19:52 | PC.NURSE ---
1400- DR MACHADO AWARE OF PT DETERIORATING STATUS. VERBAL CONSENT OBTAINED FROM ON PHONE FOR INTUBATION AND CENTRAL LINE PLACEMENT. IV MEDS GIVEN PER ORDER. RT & DR MACHADO IN ROOM.
[2019-10-02 20:00] LABS: Glucose Point of Care 158 mg/dL (70-110)
--- NOTE | 2019-10-02 20:03 | PC.NURSE ---
1929 DR MACHADO NOTIFIED OF NG TUBE COILED IN MOUTH, NEW ORDERS RECEIVED FOR KUB.
[2019-10-03] VITALS (23 sets, daily range): BP systolic 95–141; BP diastolic 66–103; PULSE 81–109; RESP 10–12; TEMP 37.4–38.9; O2SAT 79–100
[2019-10-03] MEDS: acetaminophen 650 mg Supp PR (01:10)
[2019-10-03] MEDS: propofol 1,000 MG/100 ML INJ 26.1 MG IV ×2 (04:30→09:19)
[2019-10-03 05:30] LABS: INR 2.94 (0.8-1.2)
[2019-10-03] MEDS: LORazepam 2 mg/mL INJ 1 mL IVP (05:30)
[2019-10-03] MEDS: sodium chloride 0.9% 1,000 ML 125 ML IV (05:31)
[2019-10-03 05:34] LABS: Basophils % 0.2 %; Eosinophils % 0.1 %; Hematocrit 41.2 % (42.0-52.0); Hemoglobin 12.6 g/dL (11.7-16.6); Lymphocytes # 1.6 10^3/uL (0.8-4.8); Lymphocytes % 12.6 %; Mean Corpuscular HGB Conc 30.6 g/dL (30.0-36.0); Mean Corpuscular Hemoglobin 32.6 pg (28.0-34.0); Mean Corpuscular Volume 106.5 fL (80-94); Mean Platelet Volume 9.9 fL (7.4-10.4); Monocytes # 1.4 10^3/uL (0.2-0.9); Monocytes % 10.8 %; Neutrophils # 9.6 10^3/uL (1.8-7.7); Neutrophils % 75.6 %; Nucleated Red Blood Cells % 0 %; Platelet Count 340 10^3/cmm (130-400); Red Blood Count 3.87 10^6/uL (4.1-5.3); Red Cell Distribution Width 14.4 % (12.1-15.1); White Blood Count 12.7 10^3/uL (4.0-10.0)
--- NOTE | 2019-10-03 06:00 | XR_ITS ---
WS: [id number] PORTABLE CHEST HISTORY: respiratory failure COMPARISON: 10/02/2019 Endotracheal tube ends 3 cm above the margarita in good position. Distal extent of the NG tube is not pr esent but does extend below the GE junction. No fluid overload. Improved aeration throughout the RIGHT lung with minimal persistent linear atelect asis at the bases. No definite pneumonia. No pleural effusion or pneumothorax. Cardiac size: Normal. Mediastinum/Aorta: Mild atherosclerosis aorta. No osseous abnormality seen. XR/XR chest 1V portable [id number] IMPRESSION: 1. Nasogastric and endotracheal tubes in good position. 2. Improved aeration throughout the RIGHT lung. Minimal persistent atelectasis at the RIGHT lung base.
[2019-10-03 06:09] LABS: Alanine Aminotransferase 46 U/L (0-41); Albumin Level 2.3 g/dL (3.5-5.2); Alkaline Phosphatase 188 IU/L (40-130); Anion Gap 13.8 (5-19); Aspartate Amino Transferase 49 U/L (0-40); Blood Urea Nitrogen 19 mg/dL (8-23); Carbon Dioxide 23 mmol/L (22-29); Chloride 104 mmol/L (98-107); Globulin 3.7 g/dL (1.3-4.6); Glucose 180 mg/dL (65-115); Magnesium 2.1 mg/dL (1.7-2.3); Osmolality Calculated 285 mOsm/kg (285-295); Phosphorus 2.1 mg/dL (2.5-4.5); Potassium 3.8 mmol/L (3.5-5.1); Sodium 137 mmol/L (136-145); Total Bilirubin 0.6 mg/dL (0.15-1.2)
[2019-10-03 06:16] LABS: Calcium 7.4 mg/dL (8.5-10.5)
[2019-10-03] MEDS: aztreonam 2,000 MG in sodium chloride 0.9% (plus) 100 ML 200 MG IV ×3 (06:30→22:06)
[2019-10-03 06:38] LABS: ABG PCO2 32.1 mmHg (35-45); ABG PH Result 7.45 (7.35-7.45); Arterial Blood Gas Hematocrit 48.9 % (42-52); Blood Gas Allen Test Pos; Blood Gas Sample Site Radial, right; Blood Gas Sample Type Arterial; HCO3 ABG 22.1 mmol/L (22-26); Oxygen Device VENT
--- NOTE | 2019-10-03 07:00 | US_ITS ---
WS: [id number] RIGHT UPPER QUADRANT ULTRASOUND HISTORY: sepsis, abnormal LFTs COVID 19 TESTING 10-02-2019 COMPARISON: 10/01/2019 Liver: 19.0 cm in length. Liver is moderately enlarged with coarsened echotexture and decreased atten uation. No mass or bile duct dilatation appreciated. Gallbladder: Gallbladder is not identified. Prior cholecystectomy history. CBD: 0.4 cm Pancreas: Pancreas is poorly visualized. Right kidney: RIGHT kidney is poorly visualized. 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 No hydronephrosis. Aorta and IVC: Unremarkable. No ascites. Small RIGHT pleural effusion. US/US abdomen limited [id number] IMPRESSION: 1. Moderate hepatomegaly and hepatic steatosis. 2. Prior cholecystectomy. 3. Small RIGHT pleural effusion.
[2019-10-03 08:56] LABS: Glucose Point of Care 170 mg/dL (70-110)
[2019-10-03 08:56] LABS: Glucose Point of Care 201 mg/dL (70-110)
--- NOTE | 2019-10-03 09:02 | P.PN_ITS ---
Subjective Subjective: Interval history: Patient seen and examined. He has been on CPAP overnight. He is doing well. NG tube actually was in the stomach and had just curled up a little bit in his mouth. It was adjusted by nursing staff last night. He remains febrile. White count is down today. His neck is a little stiff this morning which it was not last night. Blood cultures remain sig nificant for gram-positive cocci in 4 of 4 bottles from initial draw. A repeat blood culture was done yesterday. Medications: Reviewed: Yes Vitals/I&O/Wt Last Vital Signs Temp 101.5 F H 10/03/19 00:13 Pulse 106 H 10/03/19 06:00 Resp 10 L 10/03/19 08:49 BP 137/103 10/03/19 06:00 Pulse Ox 99 10/03/19 06:00 10/02/19 10/03/19 10/03/19 22:59 06:59 14:59 Intake Total 1569.376 / 2764.126 1524.18 / 4288.306 350 / 350 Output Total 800 / 800 625 / 1425 Balance 769.376 / 1964.126 899.18 / 2863.306 350 / 350 Weight last 48 hrs Weight 108.862 kg Physical Exam Const: OTHER: Sedated on ventilator HENMT: OTHER: NG tube intact, no new dried blood nor any bright red blood visualized Eye: OTHER: Pupils equally round and reactive to light Neck/C-Spine: OTHER: Neck is not is supple today though not definitively rigid Resp: OTHER: Clear to auscultation bilaterally, no rales, rhonchi or wheezes noted. No longer showing accessory muscle use with CPAP on board Cardio: OTHER: Irregular rhythm, rate controlled, no murmurs or rubs noted on exam today, no mottling, peripheral pulses are equal GI: OTHER: Abdomen soft, nontender, nondistended with positive but decreased bowel sounds : OTHER: Normal external genitalia, Jacob in place Extremity: NARRATIVE EXTREMITY EXAM: No pitting edema, central line site in the right groin is intact with no signs of significant bruising or oozing Neuro: OTHER: Some response to stimuli but sedate Skin: OTHER: No new skin findings Urinary Catheter Management^: Jacob: Cath Placed During This Visit: yes Reason for Continuing Indwelling Catheter: Accurate Measurement of Urinary Output in Critically Ill Patients Urinary Catheter Date of Insertion: 10/01/19 Urinary Catheter Time of Insertion: 21:28 Data : 10/03/19 03:45 10/03/19 03:45 Micro: Microbiology 10/02/19 14:15 Gram Stain - Final Sputum - Expectorated Sputum Sputum Culture - Preliminary 10/02/19 15:00 Blood Culture - Preliminary Blood SPECIMEN COLLECTED 10/02/19 14:55 Blood Culture - Preliminary Blood SPECIMEN COLLECTED 10/01/19 20:00 Blood Culture - Preliminary Blood Gram positive cocci 10/01/19 18:08 Blood Culture - Preliminary Blood Gram positive cocci A&P Assessment and plan (1) Severe sepsis: With gram-positive cocci in 4 of 4 bottles. Currently unclear source. Pneumonia is certainly a possibility though not definitive on chest x-ray. He had a similar presentation with severe sepsis and in June but at that point in time blood cultures were negative. Presumptively treated for urinary source however urine culture was unremarkable. 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 Have to keep in mind the possibility of thrombotic source hand with slight stiffness of his neck compared to yesterday INSTRUCTOR PILOT source is also a pop stability. INR remains elevated so we will currently unable to evaluate further which will limit utility of any studies. Status: Acute (2) Acute metabolic encephalopathy: Acutely related to sepsis, plus or minus effects of alcohol withdrawal chronically I believe related to alcohol use Status: Acute (3) Respiratory failure with hypoxia: Acute. Not known to be chronic. Notes indicate possibility of COPD. He is a former smoker. At the time of intubation he had a significant mucus plug suctioned from the trachea which likely contributed. Sputum was sent for culture. Status: Acute Qualifiers: Chronicity: acute Qualified Code(s): J96.01 - Acute respiratory failure with hypoxia (4) Suspected COVID-19 virus infection: Negative Status: Ruled-out (5) Atrial fibrillation with RVR: Known chronic atrial fibrillation, home medication list shows beta- blockade. Believe rapid ventricular response was secondary to respiratory issues sepsis as has resolved off of medication since yesterday afternoon after intubation. Status: Acute (6) Hypertension: Initially with hypertensive urgency blood pressures have come down with sedation Status: Chronic Qualifiers: Hypertension type: essential hypertension Qualified Code(s): I10 - Essential (primary) hypertension (7) Warfarin-induced coagulopathy: Initial INR 6.95 > 2.94 Status: Chronic (8) Diabetes mellitus: Review of home medication list indicates he has been on metformin and alogliptin Status: Chronic Qualifiers: Diabetes mellitus type: type 2 Diabetes mellitus [facility] insulin use: with intermediate project manager use Diabetes mellitus complication status: with hyperglycemia Qualified Code(s): E11.65 - Type 2 diabetes mellitus with hyperglycemia; Z79.4 - intermediate project manager (current) use of insulin (9) Aortic stenosis: Status: Chronic Qualifiers: Cardiac valve disease etiology: etiology unspecified Qualified Code(s): I35.0 - Nonrheumatic aortic (valve) stenosis (10) COPD (chronic obstructive pulmonary disease): Possible diagnosis based on presentation and history Status: Chronic Qualifiers: COPD type: unspecified COPD Qualified Code(s): J44.9 - Chronic obstru ctive pulmonary disease, unspecified (11) Chronic alcohol dependence, continuous: Sounds like he has chronic cognitive issues related to this. Received a banana bag last night. Blood alcohol level at admission was low suggesting this could be from acute alcohol withdrawal Status: Chronic Additional A&P Information -Macrocytosis, likely related to chronic alcohol use and vitamin deficiency -Elevated BNP >> echocardiogram done in June of this year showed an ejection fraction of 55% with moderate pulmonary hypertension with a right ventricular systolic pressure of 43.7 millimeters of mercury, exam he appears dry presently -Elevated troponin of currently unclear significance, no clear history of coronary artery disease, may be type II process related to A. fib with RVR, only nonspecific ST segment changes without elevation -low TSH without prior history >> free T3 is slightly low at 1.8 and free T4 is normal at 1.27. This is consistent with sick euthyroid -Elevated transaminases, no significant change -Hypoalbuminemia -History of gout Continue current antibiotics which include vancomycin, aztreonam and Levaquin Follow-up repeat blood cultures Ideally need to consider lumbar puncture and possibly MARINA although lumbar puncture would be suboptimal secondary to antibiotic use. Will maintain current ventilator settings today but try to wean sedation and see how he does. He does have chronic alcohol use issues and we may need to consider maintaining airway protection to allow adequate sedation. Has been off of Cardizem drip since intubated Has beta-blockade as needed On aspirin, currently rectal Resume statin via NG tube Change IV fluids to contain potassium Monitor volume status closely Fever control CIWA protocol On thiamine On H2 blockade Continue to hold Coumadin, daily INR Will need to initiate with pharmacological DVT prophylaxis when INR becomes subtherapeutic and no invasive procedures are indicated Insulin therapy and monitoring of blood sugars Continue jacob for close monitoring of urine output Continue central line for access in critically ill patient SCDs for DVT prophylaxis Supportive care otherwise Full code Attestations Medical Necessity Statement*: Management of multiple issues noted above. At high risk of rapid clinical decline and currently requiring respiratory support. 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 Diagnoses Severe sepsis A41.9; R65.20 Acute metabolic encephalopathy G93.41 Respiratory failure with hypoxia J96.01 Chronicity: acute Suspected COVID-19 virus infection Z20.828 Atrial fibrillation with RVR I48.91 Hypertension I10 Hypertension type: essential hypertension Warfarin-induced coagulopathy D68.32; T45.515A Diabetes mellitus E11.65; Z79.4 Diabetes mellitus type: type 2 Diabetes mellitus [facility] insulin use: with intermediate project manager use Diabetes mellitus complication status: with hyperglycemia Aortic stenosis I35.0 Cardiac valve disease etiology: etiology unspecified COPD (chronic obstructive pulmonary disease) J44.9 COPD type: unspecified COPD Chronic alcohol dependence, continuous F10.20
[2019-10-03] MEDS: famotidine 20 mg/2 mL INJ IVP ×2 (09:41→20:52)
[2019-10-03] MEDS: aspirin 300 mg Supp PR (10:00)
[2019-10-03 11:36] LABS: Glucose Point of Care 146 mg/dL (70-110)
--- NOTE | 2019-10-03 12:18 | PC.RESP ---
Pulmonary Rehab information sent to patient.
[2019-10-03 13:54] LABS: Vancomycin Trough 14.1 ug/mL (10-15)
[2019-10-03] MEDS: sodium chlor 0.45% +KCl 20 mEq 20 MEQ/1,000 ML BAG 100 MEQ IV (15:40)
[2019-10-03] MEDS: propofol 1,000 MG/100 ML INJ 19.6 MG IV ×2 (15:41→20:52)
[2019-10-03 18:04] LABS: Glucose Point of Care 125 mg/dL (70-110)
[2019-10-03] MEDS: sodium chloride 0.9% 500 ML 999 ML IV (19:25)
[2019-10-03 20:54] LABS: Glucose Point of Care 110 mg/dL (70-110)
[2019-10-03] MEDS: acetaminophen 325 mg Tablet 650 MG PO (22:06)
[2019-10-04] VITALS (22 sets, daily range): BP systolic 102–157; BP diastolic 70–105; PULSE 88–128; RESP 13–32; TEMP 37.7–38.6; O2SAT 94–98
[2019-10-04] MEDS: propofol 1,000 MG/100 ML INJ 19.6 MG IV (01:18)
[2019-10-04 01:39] LABS: Glucose Point of Care 135 mg/dL (70-110)
[2019-10-04] MEDS: sodium chlor 0.45% +KCl 20 mEq 20 MEQ/1,000 ML BAG 100 MEQ IV ×3 (01:45→22:40)
[2019-10-04 04:07] LABS: INR 2.88 (0.8-1.2)
[2019-10-04 04:08] LABS: Basophils % 0.3 %; Eosinophils # 0.1 10^3/uL (0.0-0.8); Eosinophils % 0.4 %; Hematocrit 36.9 % (42.0-52.0); Hemoglobin 11.5 g/dL (11.7-16.6); Lymphocytes # 1.7 10^3/uL (0.8-4.8); Mean Corpuscular HGB Conc 31.2 g/dL (30.0-36.0); Mean Platelet Volume 10.1 fL (7.4-10.4); Monocytes # 1.1 10^3/uL (0.2-0.9); Monocytes % 9.3 %; Neutrophils % 75.2 %; Nucleated Red Blood Cells % 0 %; Platelet Count 344 10^3/cmm (130-400); Red Blood Count 3.48 10^6/uL (4.1-5.3); Red Cell Distribution Width 14.4 % (12.1-15.1)
[2019-10-04 04:19] LABS: Alanine Aminotransferase 112 U/L (0-41); Albumin Level 2.2 g/dL (3.5-5.2); Alkaline Phosphatase 234 IU/L (40-130); Anion Gap 15.1 (5-19); Aspartate Amino Transferase 195 U/L (0-40); Blood Urea Nitrogen 15 mg/dL (8-23); Carbon Dioxide 21 mmol/L (22-29); Chloride 106 mmol/L (98-107); Glucose 147 mg/dL (65-115); Osmolality Calculated 285 mOsm/kg (285-295); Phosphorus 1.8 mg/dL (2.5-4.5); Potassium 4.1 mmol/L (3.5-5.1); Sodium 138 mmol/L (136-145); Total Bilirubin 0.7 mg/dL (0.15-1.2); Total Protein 6.2 g/dL (6.6-8.7)
[2019-10-04] MEDS: LORazepam 2 mg/mL INJ 1 mL IVP (04:19)
[2019-10-04 04:45] LABS: ABG PCO2 31.1 mmHg (35-45); ABG PH Result 7.44 (7.35-7.45); Arterial Blood Gas Hematocrit 38.1 % (42-52); Base Excess ABG -1.9 mmol/L (-2.0-2.0); Blood Gas Allen Test Pos; Blood Gas Sample Site Radial, left; Blood Gas Sample Type Arterial; Fractionated Inspired Oxygen 0.3 %; HCO3 ABG 21.3 mmol/L (22-26); Oxygen Device VENT; PO2 ABG 86.1 mmHg (80.0-100.0)
[2019-10-04] MEDS: propofol 1,000 MG/100 ML INJ 13.1 MG IV (05:16)
[2019-10-04] MEDS: aztreonam 2,000 MG in sodium chloride 0.9% (plus) 100 ML 200 MG IV ×3 (06:15→22:38)
[2019-10-04] MEDS: ipratropium-albuterol 3 mL Neb INHALATION ×2 (07:42→11:05)
--- NOTE | 2019-10-04 08:01 | P.PN_ITS ---
Subjective Subjective: Interval history: No events overnight. Patient has been on CPAP with pressure support of 10 and has been on a PEEP of 10. He remains on sedation but seems a little bit less agitated when stimulated. Continues to have fever. Blood cultures from admission are growing a Streptococcus species. Identification is still pending. Exact source is unclear at this point in time. Vitals/I&O/Wt Last Vital Signs Temp 101.1 F H 10/04/19 06:00 Pulse 96 10/04/19 08:00 Resp 15 10/04/19 07:42 BP 154/95 10/04/19 06:00 Pulse Ox 96 10/04/19 07:42 10/03/19 10/04/19 10/04/19 22:59 06:59 14:59 Intake Total 550 / 1140 1414.640 / 2554.640 Output Total 400 / 850 500 / 1350 Balance 150 / 290 914.640 / 1204.640 Physical Exam Const: OTHER: Sedated on ventilator HENMT: OTHER: NG tube intact Neck/C-Spine: OTHER: Neck is similar to evaluation yesterday with slight rigid ity Resp: OTHER: On CPAP via endotracheal tube. Minimal secretions today. Overall improved aeration Cardio: OTHER: Irregular rhythm, rate controlled GI: OTHER: Abdomen soft, nontender : OTHER: Jacob in place Extremity: NARRATIVE EXTREMITY EXAM: Central line site in the right groin is intact Neuro: OTHER: Some response to stimuli but sedate, facial grimace symmetric Skin: OTHER: No new skin findings Urinary Catheter Management^: Jacob: Cath Placed During This Visit: yes Reason for Continuing Indwelling Catheter: Accurate Measurement of Urinary Output in Critically Ill Patients Urinary Catheter Date of Insertion: 10/01/19 Urinary Catheter Time of Insertion: 21:28 Data : 10/04/19 03:15 10/04/19 03:15 Micro: Microbiology 10/02/19 15:00 Blood Culture - Preliminary Blood NEGATIVE TO DATE 10/02/19 14:55 Blood Culture - Preliminary Blood NEGATIVE TO DATE 10/01/19 20:00 Blood Culture - Preliminary Blood Streptococcus species 10/01/19 18:08 Blood Culture - Preliminary Blood Streptococcus species 10/02/19 14:15 Gram Stain - Final Sputum - Expectorated Sputum Sputum Culture - Preliminary A&P Assessment and plan (1) Severe sepsis: Streptococcus species in initial blood cultures. Repeat blood cultures are thus far negative. Currently unclear source. Pneumonia is certainly a possibility though not definitive on chest x-ray. He had a similar presentation with severe sepsis and in June but at that point in time blood cultures were negative. Presumptively treated for urinary source however urine culture was u nremarkable. 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 Urinalysis this day is really not that remarkable such that cultures were not even sent. 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 INR remains elevated limiting further invasive evaluation. Status: Acute (2) Acute metabolic encephalopathy: Acutely related to sepsis, plus or minus effects of alcohol withdrawal Status: Acute (3) Respiratory failure with hypoxia: Acute. Not known to be chronic. Notes indicate possibility of COPD. He is a former smoker. At the time of intubation he had a significant mucus plug suctioned from the trachea which likely contributed. Sputum was sent for culture. Culture thus far showing mixed adam. Status: Acute Qualifiers: Chronicity: acute Qualified Code(s): J96.01 - Acute respiratory failure with hypoxia (4) Suspected COVID-19 virus infection: Negative Status: Ruled-out (5) Atrial fibrillation with RVR: Known chronic atrial fibrillation, home medication list shows beta- blockade calcium channel blockers. Believe rapid ventricular response was secondary to respiratory issues as well as sepsis. Has been off of diltiazem drip since 10/01 and not required Status: Acute (6) Hypertension: Initially with hypertensive urgency blood pressures have come down with sedation Status: Chronic Qualifiers: Hypertension type: essential hypertension Qualified Code(s): I10 - Es sential (primary) hypertension (7) Warfarin-induced coagulopathy: Initial INR 6.95 > 2.94 Status: Chronic (8) Diabetes mellitus: On metformin and alogliptin at home Status: Chronic Qualifiers: Diabetes mellitus complication status: with hyperglycemia Diabetes mellitus intermediate accountant insulin use: with residential use Diabetes mellitus type: type 2 Qualified Code(s): E11.65 - Type 2 diabetes mellitus with hyperglycemia; Z79.4 - buttermaker continuous churn (current) use of insulin (9) Aortic stenosis: Moderate on echocardiogram in June. I will note that echocardiogram did not show any evidence of vegetation although it was a transthoracic. Status: Chronic Qualifiers: Cardiac valve disease etiology: etiology unspecified Qualified Code(s): I35.0 - Nonrheumatic aortic (valve) stenosis (10) COPD (chronic obstructive pulmonary disease): Possible diagnosis based on presentation and history Status: Chronic Qualifiers: COPD type: unspecified COPD Qualified Code(s): J44.9 - Chronic obst ructive pulmonary disease, unspecified (11) Chronic alcohol dependence, continuous: Sounds like he has chronic cognitive issues related to this. Received a banana bag at admit. Blood alcohol level at admission was low suggesting that some of his presentation could have been secondary to acute alcohol withdrawal Status: Chronic Additional A&P Information -Macrocytosis, likely related to chronic alcohol use and vitamin deficiency -Elevated BNP >> echocardiogram done in June of this year showed an ejection fraction of 55% with moderate pulmonary hypertension with a right ventricular systolic pressure of 43.7 millimeters of mercury, exam he appears dry presently -Elevated troponin of currently unclear significance, no clear history of coronary artery disease, may be type II process related to A. fib with RVR, only nonspecific ST segment changes without elevation -low TSH without prior history >> free T3 is slightly low at 1.8 and free T4 is normal at 1.27. This is consistent with sick euthyroid -Elevated transaminases, some trend upward noted. Abdominal ultrasound showed hepatomegaly and hepatic steatosis but was otherwise unremarkable. Suspect related to alcohol and infection versus medication. -Hypoalbuminemia -History of gout Continue current antibiotics which include vancomycin, aztreonam and Levaquin Follow-up repeat blood cultures as well as initial ones for identification Ideally need to consider lumbar puncture and possibly MARINA although lumbar puncture would be suboptimal secondary to length of time he has been on antibiotic already. Decisions will depend on clinical course and repeat blood cultures. Has had CT head, CTA abd/pelvis, abd US, this hospital stay Repeat chest x-ray Wean sedation, monitor mental status and work on extubating today Started on oral diltiazem with as needed beta-blockade On aspirin, currently rectal Statin not resumed yet due to increasing LFTs Change IV fluids to contain potassium If unable to extubate today will need to initiate feeds Monitor volume status closely Fever control with a watch LFTs with Tylenol CIWA protocol On thiamine On H2 blockade Continue to hold Coumadin, daily INR Will need to initiate with pharmacological DVT prophylaxis when INR becomes subtherapeutic and no invasive procedures are indicated Insulin therapy and monitoring of blood sugars, which are thus far doing well Continue jacob for close monitoring of urine output Continue central line for access in critically ill patient SCDs for DVT prophylaxis Supportive care otherwise Full code Attestations Medical Necessity Statement*: Requires ongoing inpatient stay for continued management of issues as noted above. Remains febrile without a clear source of infection. 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 Diagnoses Severe sepsis A41.9; R65.20 Acute metabolic encephalopathy G93.41 Respiratory failure with hypoxia J96.01 Chronicity: acute Suspected COVID-19 virus infection Z20.828 Atrial fibrillation with RVR I48.91 Hypertension I10 Hypertension type: essential hypertension Warfarin-induced coagulopathy D68.32; T45.515A Diabetes mellitus E11.65; Z79.4 Diabetes mellitus complication status: with hyperglycemia Diabetes mellitus intermediate accountant insulin use: with intermediate accountant use Diabetes mellitus type: type 2 Aortic stenosis I35.0 Cardiac valve disease etiology: etiology unspecified COPD (chronic obstructive pulmonary disease) J44.9 COPD type: unspecified COPD Chronic alcohol dependence, continuous F10.20
--- NOTE | 2019-10-04 08:29 | XR_ITS ---
WS: [id number] PORTABLE CHEST HISTORY: persistent fever, unclear source, on vent COMPARISON: 10/03/2019 Nasogastric and endotracheal tubes are in good position. Minimal areas of atelectasis at the lung bases. Small LEFT pleural effusion persists. Cardiac size: Mildly enlarged cardiac silhouette. Mediastinum/Aorta: Mild atherosclerosis aorta. Bones are osteopenic with degenerative changes at the glenohumeral joints. XR/XR chest 1V portable [id number] IMPRESSION: 1. Satisfactory positioning of the nasogastric and endotracheal tubes. 2. Minimal persistent atelectasis at the lung bases. 3. Small persistent LEFT pleural effusion.
[2019-10-04 08:53] LABS: Glucose Point of Care 140 mg/dL (70-110)
--- NOTE | 2019-10-04 08:53 | PC.SOCIAL ---
Pg 2 IMM Explained to pt's via phone, Pg 2 IMM. She verbally understands. No questions voiced. Provided pt a copy & left on pt's bedside table. Signed, dated, & timed a copy then placed in pt's chart.
[2019-10-04] MEDS: folic acid 1 mg Tablet PO (09:06)
[2019-10-04] MEDS: multivitamin therapeutic Tablet 1 TAB PO (09:06)
[2019-10-04] MEDS: aspirin 300 mg Supp PR (09:06)
[2019-10-04] MEDS: dilTIAZem 30 mg Tablet PO ×3 (09:06→20:16)
[2019-10-04] MEDS: famotidine 20 mg/2 mL INJ IVP ×2 (09:06→20:16)
[2019-10-04] MEDS: LORazepam 2 mg Tablet PO (09:24)
[2019-10-04] MEDS: acetaminophen 325 mg Tablet 650 MG PO ×2 (09:24→21:08)
--- NOTE | 2019-10-04 14:24 | PC.NURSE ---
EXTUBATED TO 3L NC BY RT. WILL CLOSELY MONITOR.
[2019-10-04 14:48] LABS: Glucose Point of Care 126 mg/dL (70-110)
[2019-10-04 16:47] LABS: Glucose Point of Care 136 mg/dL (70-110)
[2019-10-04 20:03] LABS: Glucose Point of Care 119 mg/dL (70-110)
[2019-10-04] MEDS: metoprolol tartrate 1 mg/1 mL SDV 5 mL 5 MG IV (20:16)
[2019-10-05] VITALS (27 sets, daily range): BP systolic 120–188; BP diastolic 83–131; PULSE 91–126; RESP 16–68; TEMP 37.6–38.9; O2SAT 92–100
[2019-10-05] MEDS: LORazepam 2 mg/mL INJ 1 mL IVP (02:16)
[2019-10-05] MEDS: dilTIAZem 30 mg Tablet PO ×5 (02:16→21:36)
[2019-10-05 02:26] LABS: Glucose Point of Care 137 mg/dL (70-110)
[2019-10-05] MEDS: aztreonam 2,000 MG in sodium chloride 0.9% (plus) 100 ML 200 MG IV (05:42)
[2019-10-05 05:46] LABS: INR 2.15 (0.8-1.2)
[2019-10-05] MEDS: metoprolol tartrate 1 mg/1 mL SDV 5 mL 5 MG IV ×4 (05:49→22:23)
[2019-10-05 05:59] LABS: Alanine Aminotransferase 201 U/L (0-41); Albumin Level 2.4 g/dL (3.5-5.2); Alkaline Phosphatase 278 IU/L (40-130); Aspartate Amino Transferase 307 U/L (0-40); Blood Urea Nitrogen 8 mg/dL (8-23); Calcium 7.9 mg/dL (8.5-10.5); Carbon Dioxide 22 mmol/L (22-29); Chloride 105 mmol/L (98-107); Glucose 151 mg/dL (65-115); Magnesium 1.9 mg/dL (1.7-2.3); Osmolality Calculated 283 mOsm/kg (285-295); Sodium 137 mmol/L (136-145); Total Bilirubin 1.2 mg/dL (0.15-1.2); Total Protein 6.4 g/dL (6.6-8.7)
[2019-10-05 06:02] LABS: Basophils % 0.4 %; Eosinophils # 0.1 10^3/uL (0.0-0.8); Hematocrit 36.6 % (42.0-52.0); Hemoglobin 11.5 g/dL (11.7-16.6); Lymphocytes # 1.3 10^3/uL (0.8-4.8); Lymphocytes % 12.8 %; Mean Corpuscular HGB Conc 31.4 g/dL (30.0-36.0); Mean Corpuscular Hemoglobin 33.2 pg (28.0-34.0); Mean Corpuscular Volume 105.8 fL (80-94); Monocytes % 9.3 %; Neutrophils # 7.8 10^3/uL (1.8-7.7); Neutrophils % 75.6 %; Nucleated Red Blood Cells % 0 %; Platelet Count 352 10^3/cmm (130-400); Red Blood Count 3.46 10^6/uL (4.1-5.3); White Blood Count 10.3 10^3/uL (4.0-10.0)
[2019-10-05 07:17] LABS: Glucose Point of Care 136 mg/dL (70-110)
[2019-10-05] MEDS: sodium chlor 0.45% +KCl 20 mEq 20 MEQ/1,000 ML BAG 100 MEQ IV (08:28)
[2019-10-05] MEDS: clindamycin 900 MG/50 ML PREMIX 100 MG IV ×2 (08:31→18:41)
[2019-10-05] MEDS: multivitamin therapeutic Tablet 1 TAB PO (08:38)
[2019-10-05] MEDS: ipratropium-albuterol 3 mL Neb INHALATION (08:41)
[2019-10-05] MEDS: famotidine 20 mg/2 mL INJ IVP ×2 (08:47→21:35)
[2019-10-05 09:01] LABS: Acetaminophen < 5.0 ug/mL (10-30)
--- NOTE | 2019-10-05 09:01 | US_ITS ---
WS: [id number] Ultrasound RIGHT shoulder. HISTORY: Evaluate for possible effusion. Moderate, complex joint effusion at the shoulder. Mildly thickened echogenic material layering in the shoulder. Depth of the joint effusion is 2.2 cm. May be hemorrhagic or infectious in etiology. US/US soft tissue/extremity [id number] IMPRESSION: Moderate complex joint effusion. May be hemorrhagic or post infectious. This wo uld be accessible for ultrasound-guided aspiration if necessary.
[2019-10-05] MEDS: folic acid 1 mg Tablet PO (09:06)
--- NOTE | 2019-10-05 09:08 | P.PN_ITS ---
Subjective Subjective: Interval history: Patient's blood cultures came back today with actually strep bovis. It is sensitive to clindamycin. Patient has penicillin allergy, the details of which are unknown. Plan was for transthoracic echocardiogram and consideration for MARINA. That plan remains but on examination today, patient says he is feeling better. He is able to converse a bit. He mays s not recall the events preceding admission. Has tolerated small sips and medications without difficulty. Did have some A. fib with RVR overnight that responded to metoprolol. Currently rate controlled. Patient is complaining of some pain in his right shoulder. His hand was puffy yesterday on the right, but I attributed it to fluids and IVs. Further evaluation today is suspicious for an effusion of the right shoulder. Orthopedics is not group controller again until Tuesday. Medications: Reviewed: Yes Vitals/I&O/Wt Last Vital Signs Temp 101.3 F H 10/05/19 06:00 Pulse 104 H 10/05/19 08:45 Resp 16 10/05/19 08:42 BP 154/112 10/05/19 06:00 Pulse Ox 99 10/05/19 08:42 10/04/19 10/05/19 10/05/19 22:59 06:59 14:59 Intake Total 1400 / 2704.147 350 / 3054.147 980 / 980 Output Total 550 / 550 1800 / 2350 Balance 850 / 2154.147 -1450 / 704.147 980 / 980 Physical Exam Const: OTHER: Awake, alert, able to answer questions and follow commands HENMT: OTHER: Dry membranes, still with a bit of dried blood noted, no active bleeding Eye: OTHER: [place] sclera, pupils are equally reactive Neck/C-Spine: OTHER: Neck more supple today Cardio: OTHER: Irregular rhythm, rate controlled, slight murmur noted GI: OTHER: Abdomen soft, nontender, nondistended, positive bowel sounds : OTHER: Jacob in place, with clear yellow urine Extremity: NARRATIVE EXTREMITY EXAM: Central line site in the right groin is intact Right hand is puffy today. Examination of the right shoulder shows slight increased warmth compared to the left with pain on range of motion and an effusion noted. Slight redness on the anterior medial portion of the shoulder joint that extends from the anterior chest. Not macular in nature nor grossly inflamed appearing beyond the erythema. Neuro: OTHER: Moves all extremities, speech a little muddled but otherwise clear and appropriate. Extraocular movements are intact. Patient is generally weak more so proximally than distally. Skin: NARRATIVE SKIN EXAM: Patient's overall coloration is improved. He does have some scattered bruises and minor abrasions on peripheral extremities. Be yond the general erythematous appearance of his chest which extend slightly into the right shoulder no rashes are noted. What I see on the chest looks more active than acute Urinary Catheter Management^: Jacob: Cath Placed During This Visit: yes Reason for Continuing Indwelling Catheter: Accurate Measurement of Urinary Output in Critically Ill Patients Urinary Catheter Date of Insertion: 10/01/19 Urinary Catheter Time of Insertion: 21:28 Data : 10/05/19 04:58 10/05/19 04:58 Micro: Microbiology 10/01/19 20:00 Blood Culture - Preliminary Blood Streptococcus bovis Coagulase negativ staphylococc 10/01/19 18:08 Blood Culture - Preliminary Blood Streptococcus bovis i 10/02/19 14:15 Gram Stain - Final Sputum - Expectorated Sputum Sputum Culture - Final A&P Assessment and plan (1) Streptococcus bovis infection: Brings up a concern for endocarditis and GI malignancy. Had had recent transthoracic echo and another one is ordered. After examination today, concern for shoulder infection. Status: Acute (2) Effusion of right shoulder joint: This was not present on initial examination. Hand was noted to be puffy yesterday. Could be primary source of infection. Status: Acute (3) Severe sepsis: Status: Acute (4) Acute metabolic encephalopathy: Improved, felt secondary to infection Status: Acute (5) Respiratory failure with hypoxia: Extubated 10/03, still requiring oxygen, does have COPD Status: Acute Qualifiers: Chronicity: acute Qualified Code(s): J96.01 - Acute respiratory failure with hypoxia (6) Atrial fibrillation with RVR: Known chronic atrial fibrillation, home medication list shows beta- blockade and calcium channel blockers chronically. Believe rapid ventricular response was secondary to respiratory issues as well as sepsis at admission. Initially treated with a Cardizem drip. Transition to oral diltiazem that was interrupted with extubation yesterday. Has IV metoprolol. Status: Acute (7) Hypertension: Initially with hypertensive urgency blood pressures improved with sedation. 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 I will note that echocardiogram did not show any evidence of vegetation although it was a transthoracic. Status: Chronic Qualifiers: Cardiac valve disease etiology: etiology unspecified Qualified Code(s): I35.0 - Nonrheumatic aortic (valve) stenosis (11) COPD (chronic obstructive pulmonary disease): Possible diagnosis based on presentation and history. Status: Chronic Qualifiers: COPD type: unspecified COPD Qualified Code(s): J44.9 - Chronic obstructive pulmonary disease, unspecified (12) Chronic alcohol dependence, continuous: Sounds like he has chronic cognitive issues related to this. Received a banana bag at admit. Blood alcohol level at admission was low suggesting that some of his presentation could have been secondary to acute alcohol withdrawal. Cannot completely rule out but not definitive. Status: Chronic (13) Suspected COVID-19 virus infection: Negative Status: Ruled-out Additional A&P Information -Macrocytosis, likely related to chronic alcohol use and vitamin deficiency -Elevated BNP >> echocardiogram done in June of this year showed an ejection fraction of 55% with moderate pulmonary hypertension with a right ventricular systolic pressure of 43.7 millimeters of mercury, continues to appear dry -Elevated troponin of currently unclear significance, no clear history of coronary artery disease, may be type II process related to A. fib with RVR, only nonspecific ST segment changes without elevation -low TSH without prior history >> free T3 is slightly low at 1.8 and free T4 is normal at 1.27. This is consistent with sick euthyroid -Elevated transaminases, continue to trend upward. Abdominal ultrasound showed hepatomegaly and hepatic steatosis but was otherwise unremarkable. Suspect related to alcohol and infection versus medication. -Hypoalbuminemia -History of gout Change antibiotics to vancomycin and Clinda Follow-up transthoracic echo Will probably need to consider transesophageal echo Stat ultrasound of right shoulder, I have discussed with interventional radiology pursuing tap pending results of that. Orthopedics is not group controller until Tuesday at 7 AM so should shoulder demonstrate something necessitating immediate orthopedic input, will require transfer to outside facility Check sed rate, CRP, uric acid stat Lactic acid at admission was normal INR is 2.15 today. We will give 1 unit of FFP and some oral vitamin K with recheck INR after FFP Lumbar puncture has been considered not done due to Coumadin coagulopathy and need to initiate care. Continue consideration as appropriate depending on clinical course Continue oral diltiazem, add oral beta-blockade with as needed IV beta-blockade, Cardizem drip stopped 513 On aspirin Statin not resumed due to increasing LFTs On thiamine and folate Decrease IV fluids Monitor volume status closely Fever control with Tylenol, watch LFTs, check acetaminophen level CIWA protocol still on board On H2 blockade Continue to hold Coumadin, daily INR Insulin therapy and monitoring of blood sugars, which are thus far doing well Continue jacob for close monitoring of urine output Nursing staff to try to get some peripheral IVs today; if can get to lines will discontinue central line Nursing staff still trying to get confirmation of exactly what her medications he was on prior to admission SCDs for DVT prophylaxis presently, address pharmacological DVT prophylaxis when not requiring invasive procedure Supportive care otherwise Discussed with patient and nurse plans of care for today Will reach out to when I have a little bit more information Full code Attestations Medical Necessity Statement*: Requires ongoing inpatient stay due to severe sepsis with Streptococcus bovis bacteremia. Plans are as noted above. He may require transfer to another facility for orthopedic evaluation depending on what we find in the shoulder. 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
--- NOTE | 2019-10-05 09:14 | USCV_ITS ---
Azam Mccabe Age: 74 Gender: M : 1945 Exam Date: 10/05/2019 10:06 Ordering Phys: Jazmin Cody MD Technologist: Mitali Ortiz [place]am Location[place] [facility] [place]ication: BACTEREMIA BP: 127 / 83 HR: 95 Rhythm: Sinus Technical Quality: Adequate MEASUREMENTS (Male / Female) Normal Values 2D ECHO LV Diastolic Diameter PLAX 2.2 cm 4.2 - 5.9 / 3.9 - 5.3 cm LV Systolic Diameter PLAX 1.4 cm LV Chamber Size 3.2 cm IVS Diastolic Thickness 1.5 cm 0.6 - 1.0 / 0.6 - 0.9 cm IVS Systolic Thickness 1.4 cm LVPW Diastolic Thickness 2.0 cm 0.6 - 1.0 / 0.6 - 0.9 cm LVPW Systolic Thickness 1.8 cm RV Chamber Size 3.1 cm LVOT Diameter 2.1 cm LV Ejection Fraction 2D Teich 69.4 % LV Ejection Fraction MOD 2C 77.5 % LV Ejection Fraction 2C AL 77.9 % LA Diameter 4.8 cm LA Width 3.5 cm LA Height 4.9 cm RA Width 2.4 cm RA Height 4.4 cm Aorta at Sinotubular Diameter 2.8 cm M-MODE LV Diastolic Diameter MM 6.1 cm 4.2 - 5.9 / 3.9 - 5.3 cm LV Systolic Diameter MM 4.3 cm LV Ejection Fraction MM Teich 54.6 % IVS Diastolic Thickness MM 1.4 cm 0.6 - 1.0 / 0.6 - 0.9 cm IVS Systolic Thickness MM 2.0 cm LVPW Diastolic Thickness MM 1.2 cm 0.6 - 1.0 / 0.6 - 0.9 cm LVPW Systolic Thickness MM 1.9 cm Aortic Annulus Diameter 3.9 cm LA Ao Ratio MM 1.2 MV E Point Septal Separation 1.3 cm FINDINGS Left Ventricle Normal left ventricle size and systolic function. Left ventricular ejection fraction is estimated at 55 %. No diagnostic regional wall motion abnormality. Right Ventricle Normal right ventricular size and systolic function. Right Atrium Normal right atrial size. Left Atrium Upper normal left atrial size. Mitral Valve Moderate mitral annular calcification. Thickened mitral valve. Aortic Valve Aortic valve not well visualized. Tricuspid Valve Structurally normal tricuspid valve. Pulmonic Valve Pulmonic valve not well visualized. Pericardium No pericardial effusion. Aorta Normal-sized aortic root. CONCLUSIONS 1. This is a technically difficult and limited study. There were no parasternal windows. 2. Normal left ventricle size and systolic function. Left ventricular ejection fraction is estimated at 55 %. No diagnostic regional wall motion abnormality. 3. Normal right ventricular size and systolic function. 4. Valves were not well visualized to rule out infective endocarditis completely. MARINA is recommended, if clinically indicated. Ethel Sifuentes MD (Electronically Signed) Final Date: 05 Oct 2019 15:26 S
[2019-10-05] MEDS: phytonadione (ADULT) 10 mg/mL Ampule 1 mL 2.5 MG PO ×2 (09:26→13:38)
--- NOTE | 2019-10-05 10:04 | PC.NURSE ---
0730 WHEN MOVING RIGHT ARM, PT. C/O SEVERE PAIN. RIGHT ARM SWOLLEN. SOME REDNESS AROUND AC AREA AND UPPER ARM
[2019-10-05 11:07] LABS: C Reactive Protein 61.6 mg/L (0.0-4.9); Uric Acid 2.4 mg/dL (3.4-7.0)
[2019-10-05 11:38] LABS: Erythrocyte Sedimentation Rate 108 mm/hr (0-10)
--- NOTE | 2019-10-05 11:53 | US_ITS ---
NOTE: Report was unsigned for reason: Order was edited. Original Signature date and time was: 10/05/19 1423 WS: [id number] Ultrasound-guided aspiration RIGHT shoulder joint. HISTORY: Complex fluid in the RIGHT shoulder joint. Evaluate for infection. There is a complex fluid collection along the anterior RIGHT shoulder joint. Skin is cleansed with ChloraPrep and anesthetized with 1% buffered lidocaine. Aspiration was attempted with 18 and 20-gauge needles. Only a small mildly bloody aspirate was obtained. The aspirate is cloudy. Majority of the material in the fluid collection is thick material. This material was sent for analysis as requested. Procedure consent was obtained by the patient's . No complications were encountered. [facility] US/US guide needle placein [id number] IMPRESSION: Minimal aspiration a very complex joint effusion RIGHT shoulder. Mildly bloody/ cloudy aspirate was obtained and sent for analysis as requested. Differential i ncludes hemorrhagic joint effusion and infection.
[2019-10-05 14:23] LABS: RBC Synovial Fluid 127 10^3/uL (0-0); Synovial Fluid Mononuclear # 0.573 10^3/uL; WBC Synovial Fluid 12321 /uL (0-150)
[2019-10-05 15:09] LABS: Appearance Synovial Fluid CLOUDY (CLEAR); Color Synovial Fluid RED (PALE YELLOW); PATH Referal YES
[2019-10-05 16:04] LABS: Protein Urine Neg (Negative); Specific Gravity, Urine 1.015 (1.005-1.030); Urine Appearance Clear (CLEAR); Urine Color Yellow (Yellow); pH Urine 6 (5-7)
[2019-10-05 16:05] LABS: Add Urine Microscopic? YES; Bacteria Urine TRACE; Bilirubin Urine Neg (NEGATIVE); Blood Urine 3+ (Negative); Glucose Urine UA Norm (Normal); Ketones Urine 1+ (Negative); Leukocyte Esterase Urine Negative (Negative); Mucus Urine TRACE; Nitrate Urine Negative (Negative); RBC Urine 50-80 /hpf (0-2); Urobilinogen Urine 1 mg/dL (Negative)
[2019-10-05 16:06] LABS: Add Urine Culture? Yes
[2019-10-05] MEDS: LORazepam 2 mg Tablet PO (16:10)
[2019-10-05] MEDS: aspirin 81 mg EC Tablet PO (16:10)
--- NOTE | 2019-10-05 16:20 | PC.OT ---
OT EVALUATION ORDERS RECEIVED. PER NURSING, PATIENT JUST RECEIVED ATIVAN AND IS IN NO COGNITIVE STATUS AT THIS POINT TO PARTICIPATE IN EVALUATION. ATTEMPT AGAIN TOMORROW.
[2019-10-05 16:22] LABS: Glucose Point of Care 134 mg/dL (70-110)
[2019-10-05] MEDS: acetaminophen 325 mg Tablet 650 MG PO (17:30)
[2019-10-05] MEDS: metoprolol tartrate 25 mg Tablet PO (17:30)
[2019-10-05 17:44] LABS: ABG PCO2 27.9 mmHg (35-45); ABG PH Result 7.51 (7.35-7.45); Alveolar-Arterial Oxygen Gradi 57.6 mmHg (5-10); Arterial Blood Gas Hematocrit 40.3 % (42-52); Base Excess ABG 0.4 mmol/L (-2.0-2.0); Blood Gas Allen Test Pos; Blood Gas Sample Site Radial, left; Blood Gas Sample Type Arterial; Carboxyhemoglobin 0.6 %THgb (0.4-20.1); HCO3 ABG 22.3 mmol/L (22-26); HGB O2 Sat 97.9 % (95-100); Ionized Calcium Level - ABG 1.1 mmol/L (1.1-1.4); Methemoglobin 0.6 % (0.4-1.5); Oxygen Device NC; Oxygen Saturation ABG 99.1; Potassium Level - ABG 3.9 mmol/L (3.5-5.0); Total Hemoglobin 13.2 g/dL (14-18)
[2019-10-05 21:47] LABS: Glucose Point of Care 131 mg/dL (70-110)
[2019-10-05 22:30] LABS: Crystals, Fluid See Path Consult
[2019-10-06] VITALS (23 sets, daily range): BP systolic 123–174; BP diastolic 75–126; PULSE 84–108; RESP 20–38; TEMP 37.4–38.4; O2SAT 2–100
[2019-10-06] MEDS: LORazepam 2 mg/mL INJ 1 mL IVP (01:18)
[2019-10-06] MEDS: clindamycin 900 MG/50 ML PREMIX 100 MG IV ×3 (01:18→18:11)
[2019-10-06 01:53] LABS: Glucose Point of Care 136 mg/dL (70-110)
[2019-10-06] MEDS: sodium chlor 0.45% +KCl 20 mEq 20 MEQ/1,000 ML BAG 100 MEQ IV (02:43)
[2019-10-06] MEDS: dilTIAZem 30 mg Tablet PO ×5 (02:45→21:01)
[2019-10-06] MEDS: acetaminophen 325 mg Tablet 650 MG PO ×3 (02:45→14:39)
[2019-10-06] MEDS: ipratropium-albuterol 3 mL Neb INHALATION (02:56)
[2019-10-06 04:12] LABS: Basophils % 0.2 %; Eosinophils # 0.1 10^3/uL (0.0-0.8); Eosinophils % 0.9 %; Hematocrit 34.1 % (42.0-52.0); Lymphocytes # 1.1 10^3/uL (0.8-4.8); Lymphocytes % 12.7 %; Mean Corpuscular HGB Conc 32.3 g/dL (30.0-36.0); Mean Corpuscular Hemoglobin 33.1 pg (28.0-34.0); Mean Corpuscular Volume 102.7 fL (80-94); Mean Platelet Volume 9.4 fL (7.4-10.4); Monocytes # 0.9 10^3/uL (0.2-0.9); Monocytes % 10.3 %; Neutrophils # 6.5 10^3/uL (1.8-7.7); Neutrophils % 75.1 %; Nucleated Red Blood Cells % 0 %; Platelet Count 315 10^3/cmm (130-400); Red Blood Count 3.32 10^6/uL (4.1-5.3); Red Cell Distribution Width 13.7 % (12.1-15.1); White Blood Count 8.7 10^3/uL (4.0-10.0)
[2019-10-06 04:27] LABS: INR 1.33 (0.8-1.2)
[2019-10-06 04:31] LABS: C Reactive Protein 90.6 mg/L (0.0-4.9)
[2019-10-06] MEDS: metoprolol tartrate 1 mg/1 mL SDV 5 mL 5 MG IV (05:02)
[2019-10-06 05:09] LABS: Erythrocyte Sedimentation Rate 108 mm/hr (0-10)
--- NOTE | 2019-10-06 05:59 | PC.NURSE ---
0500- Patient's blood pressure 186/131 prn 5 mg of metoprolol given. 0555- Patient's blood pressure is 174/126. Dr. Lyons notified and one time dose of hydralazine 10 mg IVP was ordered. Will continue to monitor.
[2019-10-06] MEDS: hyDRALAzine 20 mg/mL INJ 1 mL 10 MG IVP (06:10)
[2019-10-06 07:32] LABS: Glucose Point of Care 137 mg/dL (70-110)
[2019-10-06] MEDS: folic acid 1 mg Tablet PO (09:03)
[2019-10-06] MEDS: multivitamin therapeutic Tablet 1 TAB PO (09:03)
[2019-10-06] MEDS: metoprolol tartrate 25 mg Tablet PO ×2 (09:03→18:10)
[2019-10-06] MEDS: thiamine 100 mg Tablet PO (09:03)
[2019-10-06] MEDS: famotidine 20 mg/2 mL INJ IVP ×2 (09:04→21:05)
--- NOTE | 2019-10-06 09:43 | CTR_ITS ---
PROCEDURE INFORMATION: Exam: CT Chest With Contrast Exam date and time: 10/06/2019 4:00 PM Age: 74 years old Clinical indication: Patient HX: Persistent fever; Additional info: Persistent fever, strep bovis bacteremia TECHNIQUE: Imaging protocol: Computed tomography of the chest with intravenous contrast. Radiation optimization: All CT scans at this facility use at least one of these dose optimization techniques: automated exposure control; mA and/or kV adjustment per patient size (includes targeted exams where dose is matched to clinical indication); or iterative reconstruction. Contrast material: OMNI 300; Contrast volume: 75 ml; Contrast route: 20G; COMPARISON: CR XR chest 1V portable [id number] 10/04/2019 8:29 AM RADIATION DOSE METRICS: Total DLP: 1041.79 mGy-cm FINDINGS: Lungs: There are emphysematous changes at the lung apices. Pleural space: There are bilateral pleural effusions with underlying compressive atelectasis or infiltrate. Heart: Multivessel atherosclerotic disease which involves the coronary arteries. Aorta: Unremarkable. No aortic aneurysm. Lymph nodes: Unremarkable. No enlarged lymph nodes. Bones/joints: Unremarkable. No acute fracture. Soft tissues: Unremarkable. CT/CT chest w con* [id number] IMPRESSION: There are bilateral pleural effusions with underlying compressive atelectasis or infiltrate. Radiation Dose CTDIVOL = (mGy): DLP = 1041.79 (mGy-cm)
--- NOTE | 2019-10-06 09:43 | CTR_ITS ---
PROCEDURE INFORMATION: Exam: CT Right Upper Extremity With Contrast, Shoulder Exam date and time: 10/06/2019 4:00 PM Age: 74 years old Clinical indication: Right; Prior surgery; Surgery date: 6+ months; Surgery type: Rotator; Patient HX: C/O fever and R shoulder pain; Additional info: Effusion, persistent fever, HX rotator cuff repair TECHNIQUE: Imaging protocol: CT of the Right upper extremity with contrast material. Exam focused on the shoulder Radiation optimization: All CT scans at this facility use at least one of these dose optimization techniques: automated exposure control; mA and/or kV adjustment per patient size (includes targeted exams where dose is matched to clinical indication); or iterative reconstruction. Contrast material: OMNI 300; Contrast volume: 95 ml; Contrast route: 20G; COMPARISON: No relevant prior studies available. RADIATION DOSE METRICS: Total DLP: 2458.89 mGy-cm FINDINGS: Bones/joints: There is a joint effusion with internal complexity raising concern for septic joint effusion. 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 There is pronounced cortical irregularity of the glenoid and large subchondral cysts raising concern for osteomyelitis as well. There is an anchor screw in the humeral head consistent with the history of prior rotator cuff tear. There are cystic changes in the humeral head about the anchor screw. Soft tissues: There ill-defined peripherally collections within the musculature surrounding the shoulder , consistent abscess formations. CT/CT shoulder RT w con [id number] IMPRESSION: 1. 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 There is pronounced cortical irregularity of the glenoid and large subchondral cysts raising concern for osteomyelitis as well. 2. There ill-defined peripherally collections within the musculature surrounding the shoulder , consistent abscess formations. 3. There is a joint effusion with internal complexity raising concern for septic joint effusion. Radiation Dose CTDIVOL = (mGy): DLP = 2458.89 (mGy-cm)
--- NOTE | 2019-10-06 09:56 | P.PN_ITS ---
Subjective Subjective: Interval history: Patient remains alert. Says he thinks he feels better. He does not specifically complain of any pain in his shoulders until they are examined. He can raise his right arm only a little bit and is primarily using his elbow to do so. Remains febrile. States his breathing is okay. Medications: Reviewed: Yes Vitals/I&O/Wt Last Vital Signs Temp 101.1 F H 10/06/19 07:48 Pulse 103 H 10/06/19 08:43 Resp 28 H 10/06/19 08:43 BP 135/92 10/06/19 07:48 Pulse Ox 99 10/06/19 08:43 10/05/19 10/06/19 10/06/19 22:59 06:59 14:59 Intake Total 1400.4 / 2430.4 300 / 2730.4 Output Total 1850 / 1850 1350 / 3200 Balance -449.6 / 580.4 -1050 / -469.6 Physical Exam Const: OTHER: Awake, alert, able to answer questions and follow commands HENMT: OTHER: Face not as flushed. Mucous membranes are a bit moist Eye: OTHER: Hilmar sclera, pupils are equally reactive Neck/C-Spine: OTHER: Neck supple Resp: OTHER: On oxygen, scattered wheezes, tachypneic and as some degree of abdominal breathing at baseline Cardio: OTHER: Irregular rhythm, some jugular venous distention noted today GI: OTHER: Abdomen soft, nontender, nondistended, positive bowel sounds : OTHER: Jacob in place, with clear yellow urine Extremity: NARRATIVE EXTREMITY EXAM: Right shoulder today not as warm as it was yesterday. Slight decrease and anterior swelling. Pain with range of motion of both shoulders. Has better range of motion in the left shoulder. Both upper extremities are puffy today whereas yesterday it was just the right Neuro: OTHER: Moves all extremities, speech is clearer today. Extraocular movements are intact. Some lateral nystagmus noted patient is generally weak more so proximally than distally. Skin: NARRATIVE SKIN EXAM: Increasing bruising at sites of lab draws and such. Right groin is intact more central line had been. Urinary Catheter Management^: Jacob: Cath Placed During This Visit: yes Reason for Continuing Indwelling Catheter: Accurate Measurement of Urinary Output in Critically Ill Patients Urinary Catheter Date of Insertion: 10/01/19 Urinary Catheter Time of Insertion: 21:28 Data : 10/06/19 04:06 10/06/19 04:06 Micro: Microbiology 10/05/19 13:40 Gram Stain - Final Synovial Fluid 10/01/19 20:00 Blood Culture - Final Blood Streptococcus bovis Coagulase negativ staphylococc 10/01/19 18:08 Blood Culture - Final Blood Streptococcus bovis i A&P Assessment and plan (1) Streptococcus bovis infection: Brings up a concern for endocarditis and GI malignancy. Transthoracic echo unrevealing. Patient does have evidence of a shoulder joint infection but I am concerned that that might be a secondary site of infection rather than primary. Status: Acute (2) Effusion of right shoulder joint: This was not apparent on my initial examination. He has chronic issues with his shoulder from history that has been obtained. These issues have worsened over the last few months. When asked he does not complain about pain though he has it with examination. Status: Acute (3) Severe sepsis: As evidenced by leukocytosis, fever, respiratory failure. Did not demonstrate evidence of shock. Status: Acute (4) Acute metabolic encephalopathy: Improved Status: Acute (5) Respiratory failure with hypoxia: Extubated 10/03, still requiring oxygen, does have COPD Status: Acute Qualifiers: Chronicity: acute Qualified Code(s): J96.01 - Acute respiratory failure with hypoxia (6) Atrial fibrillation with RVR: Known chronic atrial fibrillation, home medication list shows beta- blockade and calcium channel blockers chronically. Believe rapid ventricular response was secondary to respiratory issues as well as sepsis at admission. Initially treated with a Cardizem drip. Has transition to oral management. Status: Acute (7) Hypertension: Initially with hypertensive urgency blood pressures improved with sedation. Continue to be within acceptable range on current medications Status: Chronic Qualifiers: Hypertension type: essential hypertension Qualified Code(s): I10 - E ssential (primary) hypertension (8) Warfarin-induced coagulopathy: Initial INR 6.95 > 2.94 > 2.88 > 2.15 > 1 unit FFP > 1.33 Status: Acute (9) Diabetes mellitus: On metformin and alogliptin at home, insulin here presently Status: Chronic Qualifiers: Diabetes mellitus complication status: with hyperglycemia Diabetes mellitus long term care administrator insulin use: with long term care administrator use Diabetes mellitus type: type 2 Qualified Code(s): E11.65 - Type 2 diabetes mellitus with hyperglycemia; Z79.4 - long term care administrator (current) use of insulin (10) Aortic stenosis: Moderate on echocardiogram in June. I will note that echocardiogram did not show any evidence of vegetation although it was a transthoracic. Status: Chronic Qualifiers: Cardiac valve disease etiology: etiology unspecified Qualified Code(s): I35.0 - Nonrheumatic aortic (valve) stenosis (11) COPD (chronic obstructive pulmonary disease): Probable diagnosis based on presentation and history. Status: Chronic Qualifiers: COPD type: unspecified COPD Qualified Code(s): J44.9 - Chronic obstructive pulmonary disease, unspecified (12) Chronic alcohol dependence, continuous: Sounds like he has chronic cognitive issues related to this. Received a banana bag at admit. Blood alcohol level at admission was low suggesting that some of his presentation could have been secondary to acute alcohol withdrawal. Cannot completely rule out but not definitive. Status: Chronic (13) Suspected COVID-19 virus infection: Negative Status: Ruled-out Additional A&P Information -Macrocytosis, likely related to chronic alcohol use and vitamin deficiency -Elevated BNP >> echocardiogram done in June of this year showed an ejection fraction of 55% with moderate pulmonary hypertension with a right ventricular systolic pressure of 43.7 millimeters of mercury, becoming more edematous -Elevated troponin of currently unclear significance, no clear history of coronary artery disease, feel type II process related to A. fib with RVR/sepsis, only nonspecific ST segment changes without elevation -low TSH without prior history >> free T3 is slightly low at 1.8 and free T4 is normal at 1.27. This is consistent with sick euthyroid -Elevated transaminases, continue to trend upward. Abdominal ultrasound showed hepatomegaly and hepatic steatosis but was otherwise unremarkable. Suspect related to alcohol and infection versus medication. 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 Continue daily INR, off coumadin Continue oral diltiazem and oral beta-blockade with as needed IV beta-blockade, Cardizem drip stopped 10/02 On aspirin Statin not resumed due to increasing LFTs On thiamine and folate Continue current fluids Post procedure we will start to advance diet Monitor volume status closely Fever control with Tylenol, watch LFTs, check acetaminophen level CIWA protocol still on board if needed On H2 blockade Insulin therapy and monitoring of blood sugars Continue jacob for close monitoring of urine output Central line stopped 10/04 Nursing staff still trying to get confirmation of exactly what home medications he was on prior to admission SCDs for DVT prophylaxis presently, address pharmacological DVT prophylaxis when not requiring invasive procedure Supportive care otherwise Discussed with patient and nurse plans of care for today was also informed of plans Full code Attestations Medical Necessity Statement*: Requires ongoing inpatient stay for continued management of bacteremia with persistent fever and other issues as noted above. At high risk for clinical worsening. 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[employer] Diagnoses Streptococcus bovis infection A49.1 Effusion of right shoulder joint M25.411 Severe sepsis A41.9; R65.20 Acute metabolic encephalopathy G93.41 Respiratory failure with hypoxia J96.01 Chronicity: acute Atrial fibrillation with RVR I48.91 Hypertension I10 Hypertension type: essential hypertension Warfarin-induced coagulopathy D68.32; T45.515A Diabetes mellitus E11.65; Z79.4 Diabetes mellitus complication status: with hyperglycemia Diabetes mellitus long term care administrator insulin use: with fdc use Diabetes mellitus type: type 2 Aortic stenosis I35.0 Cardiac valve disease etiology: etiology unspecified COPD (chronic obstructive pulmonary disease) J44.9 COPD type: unspecified COPD Chronic alcohol dependence, continuous F10.20 Suspected COVID-19 virus infection Z20.828
[2019-10-06 10:12] LABS: Anion Gap 15.9 (5-19); Blood Urea Nitrogen 9 mg/dL (8-23); Carbon Dioxide 22 mmol/L (22-29); Chloride 102 mmol/L (98-107); Glucose 139 mg/dL (65-115); Osmolality Calculated 280 mOsm/kg (285-295); Potassium 3.9 mmol/L (3.5-5.1); Sodium 136 mmol/L (136-145)
--- NOTE | 2019-10-06 10:17 | PC.NURSE ---
Previous Cardizem dose delayed. Dr Rebollar requested 0900 administration at 1000.
--- NOTE | 2019-10-06 10:49 | PC.SOCIAL ---
IMM Updated Updated Pt's on Pg 2 IMM. No questions voiced. Provided pt a copy & left on pt's bedside table. Signed, dated, & timed copy in chart.
[2019-10-06 11:47] LABS: Hepatitis A Antibody IgM Non-Reactive (Nonreactive); Hepatitis B Core AB, Total Non-Reactive (Nonreactive); Hepatitis B Surface Antigen Non-Reactive (Nonreactive); Hepatitis C Virus Antibody Non-Reactive (Nonreactive)
[2019-10-06] MEDS: enoxaparin 40 mg/0.4 mL Syringe SUBCUT (14:03)
[2019-10-06 14:30] LABS: Glucose Point of Care 120 mg/dL (70-110)
[2019-10-06 15:28] LABS: Add Urine Microscopic? YES; Bilirubin Urine Neg (NEGATIVE); Blood Urine 3+ (Negative); Glucose Urine UA Norm (Normal); Ketones Urine 1+ (Negative); Leukocyte Esterase Urine Negative (Negative); Nitrate Urine Negative (Negative); Protein Urine Neg (Negative); Specific Gravity, Urine 1.025 (1.005-1.030); Urine Appearance Clear (CLEAR); Urine Color Yellow (Yellow); Urobilinogen Urine 4 mg/dL (Negative); pH Urine 5 (5-7)
[2019-10-06 15:54] LABS: Squamous Epithelial Cell Urine RARE (0-5); WBC Urine 0-4 /hpf (0-5)
[2019-10-06 15:55] LABS: Bacteria Urine 1+; Mucus Urine 1+; RBC Urine 40-50 /hpf (0-2)
[2019-10-06 15:56] LABS: Add Urine Culture? Yes
[2019-10-06] MEDS: iohexol 300 mg/mL 100 mL Btl IV ×2 (16:18→16:19)
--- NOTE | 2019-10-06 17:37 | P.CONIM_ITS ---
Providers/Reason For Consult Consulting Physican/Specialty*: Joo Barrios D.O. Orthopedic surgery Reason for Consult*: suspected septic arthritis right shoulder Attending Physician: Jazmin Cody MD History of Present Illness History of Present Illness Azam Mccabe is a 74 year old male Review of Systems General: Reports: ROS unobtainable due to medical condition Meds/Allergies Home Medications and Allergies Home Medications Medication Instructions Recorded Confirmed Last Taken Type acetaminophen [Acetaminophen Extra 500 - 1,000 mg PO QID PRN 07/11/19 09/28/19 07/11/19 History Strength] allopurinol 100 mg PO DAILY 07/11/19 10/02/19 07/11/19 History budesonide-formoterol [Symbicort] 2 puff INHALATION BID 07/11/19 09/28/19 07/11/19 History colchicine 0.6 mg PO PRN PRN 07/11/19 09/28/19 07/11/19 History melatonin See Rx Instructions .ROUTE .COMPLEX 07/11/19 09/28/19 07/10/19 History sertraline 150 mg PO DAILY 07/11/19 09/28/19 07/11/19 History warfarin See Rx Instructions .ROUTE .COMPLEX 07/11/19 10/02/19 07/10/19 History albuterol sulfate [ProAir HFA] 2 puff INHALATION QID PRN 09/28/19 09/28/19 Unknown History alogliptin 25 mg PO DAILY 09/28/19 10/02/19 Unknown History atorvastatin [Lipitor] 40 mg PO DAILY 09/28/19 10/02/19 Unknown History cholecalciferol (vitamin D3) 50 mcg PO DAILY 09/28/19 10/02/19 Unknown History diltiazem HCl 240 mg PO QAM 09/28/19 10/02/19 Unknown History metaxalone [Skelaxin] 800 mg PO TID PRN #20 tab 09/28/19 10/02/19 Unknown Rx metformin 1,000 mg PO BID 09/28/19 10/02/19 Unknown History metoprolol succinate [Toprol XL] 50 mg PO DAILY #20 tab 09/28/19 10/02/19 Unknown Rx multivitamin [Multiple Vitamins] 1 tab PO DAILY 09/28/19 10/02/19 Unknown History prazosin 2 mg PO BEDTIME 09/28/19 09/28/19 Unknown History sennosides [senna] 17.2 mg PO BID 09/28/19 10/02/19 Unknown History tamsulosin [Flomax] 0.4 mg PO QPM 09/28/19 10/02/19 Unknown History tramadol 50 mg PO Q6H PRN #20 tab 09/28/19 10/02/19 Unknown Rx Allergies Allergy/AdvReac Type Severity Reaction Status Date / Time Penicillins Allergy Unknown Verified 07/11/19 13:11 Current Medications Current Medications Generic Name Dose Route Start Last Admin Trade Name Freq PRN Reason Stop Dose Admin Acetaminophen 650 mg 10/03/19 21:41 10/06/19 14:39 Tylenol PO 650 mg Q6H PRN Administration FEVER Albuterol/Ipratropium 3 ml 10/01/19 21:16 10/06/19 02:56 Duoneb INHALATION 3 ml Q6H.RESPIRATORY PRN Administration SHORTNESS OF BREATH Aspirin 81 mg 10/06/19 09:00 10/05/19 16:10 Aspirin Ec PO 81 mg DAILY DAVID Administration Diltiazem HCl 30 mg 10/04/19 08:30 10/06/19 14:32 Cardizem PO 30 mg Q6H DAVID Administration Enoxaparin Sodium 40 mg 10/06/19 10:15 10/06/19 14:03 Lovenox SUBCUT 40 mg Q24H DAVID Administration Famotidine 20 mg 10/02/19 08:45 10/06/19 09:04 Pepcid Inj IVP 20 mg Q12H DAVID Administration Folic Acid 1 mg 10/02/19 09:00 10/06/19 09:03 Folic Acid PO 1 mg DAILY DAVID Administration Potassium Chloride/Sodium Chloride 20 meq in 1,000 mls @ 50 mls/hr 10/03/19 10:00 10/06/19 02:43 Sodium Chlor 0.45% +Kcl 20 Meq IV 100 mls/hr .Q20H DAVID Administration Clindamycin HCl/Dextrose 900 mg in 50 mls @ 100 mls/hr 10/05/19 08:45 10/06/19 09:01 Cleocin IV 100 mls/hr Q8H DAVID Administration Protocol Vancomycin HCl 1,250 mg/ 250 mls @ 200 mls/hr 10/05/19 13:45 10/06/19 14:03 Sodium Chloride IV 200 mls/hr Q8H DAVID Administration Protocol As Directed Insulin Aspart 0 unit 10/01/19 21:30 10/06/19 14:24 Novolog SUBCUT Not Given Q6H DAVID Protocol Lorazepam 2 mg 10/02/19 08:15 10/06/19 01:18 Ativan IVP 2 mg PRN PRN Administration WITHDRAWAL Protocol Lorazepam 2 mg 10/02/19 08:15 10/05/19 16:10 Ativan PO 2 mg Q4H PRN Administration WITHDRAWAL Protocol Metoprolol Tartrate 5 mg 10/04/19 19:51 10/06/19 05:02 Metoprolol Tartrate IV 5 mg Q6H PRN Administration HR > 110 as long as SBP >/ 95 Metoprolol Tartrate 25 mg 10/05/19 18:00 10/06/19 09:03 Lopressor PO 25 mg BID DAVID Administration Multivitamins Therapeutic 1 tab 10/02/19 09:00 10/06/19 09:03 Multivitamin Tab PO 1 tab DAILY DAVID Administration Thiamine Mononitrate 100 mg 10/06/19 09:00 10/06/19 09:03 Vitamin B-1 PO 100 mg DAILY DAVID Administration PFSH Acute PFSH: Medical History Abdominal aortic aneurysm Aortic stenosis Echocardiogram June 2019 showed valve area of 1.8 cm? with a mean gradient of 9 mmHg, described as moderate stenosis Atrial fibrillation Chronic alcohol dependence, continuous Chronic back pain COPD (chronic obstructive pulmonary disease) Diabetes mellitus Gout Hypertension Peripheral vascular disease Surgical History History of herniorrhaphy History of orthopedic surgery Right shoulder Hx of cholecystectomy Family History Father CAD (coronary artery disease) Social History Smoking and tobacco status: former smoker Alcohol intake: current Alcohol intake frequency: few times a week Vitals/I&O/Wt Last Vital Signs Temp 99.9 F H 10/06/19 12:00 Pulse 94 10/06/19 12:00 Resp 25 H 10/06/19 12:00 BP 123/83 10/06/19 12:00 Pulse Ox 94 10/06/19 12:00 10/06/19 10/06/19 10/06/19 06:59 14:59 22:59 Intake Total 550 / 2980.4 Output Total 1350 / 3200 Balance -800 / -219.6 Physical Exam Narrative: EXAM NARRATIVE: 74-year-old obtunded white male that responded with peripheral septal motion but without IV opening to sternal rub. He has a Band- Aid on anterior sponges right shoulder. His right shoulder shows a palpable effusion in the soft tissues as compared to the left shoulder that does not. He has swelling of his right hand. His right hand is warm. His lungs show some adventitious breath sounds but no gross wheezing rails or crackles. Heart was regular in rhythm. No jugular venous distention noted. Abdomen was soft and nontender. He had no calf tenderness to palpation bilaterally. Urinary Catheter Management^: Benson: Cath Placed During This Visit: yes Reason for Continuing Indwelling Catheter: Accurate Measurement of Urinary Output in Critically Ill Patients Urinary Catheter Date of Insertion: 10/01/19 Urinary Catheter Time of Insertion: 21:28 Data Micro: Micro: Microbiology 10/06/19 11:21 Blood Culture - Pr eliminary Blood [facility] 10/06/19 11:20 Blood Culture - Pr eliminary Blood [facility] 10/05/19 13:40 Gram Stain - Final Synovial Fluid Body Fluid Culture - Preliminary 10/01/19 20:00 Blood Culture - Fi nal Blood Streptococcus b ovis Coagulase negat iv staphylococc 10/01/19 18:08 Blood Culture - Fi nal Blood Streptococcus b ovis i A&P Assessment and plan (1) Effusion of right shoulder joint: 74-year-old obtunded white male seen at the bedside in the Intensive Care Unit today at the request of Dr. melissa. The patient has obvious swelling about the right shoulder as compared to the left. There is a small Band-Aid over the anterior aspect of his shoulder where ultrasound-guided aspiration was performed that removed cloudy thick fluid. Ultrasound showed a complex collection of fluid within the shoulder. He has undergone CT scan which on my review shows evidence of previous rotator cuff repair. I believe his rotator cuff repair has gone on to fail over time and he shows findings consistent with rotator cuff arthropathy with a high riding humeral head acetabular position of the acromion osteophyte formation with subchondral cyst formation of the humeral head and the glenoid. The CT scan shows a large amount of fluid collection about the shoulder. The ultrasound is more helpful here showing that this is a more complex collection of fluid versus fluid that I would expect if someone had a chronic rotator cuff tear with synovial fluid being displaced both about the anterior aspect of the joint and leaking freely into the soft tissues about the joint. I discussed with his taking him to surgery tomorrow and performing a arthroscopy of the shoulder with cultures being taken to evaluate for infection to hopefully increase the yield from a simple aspiration and to also thoroughly wash out the joint and perform a debridement. Plan will be to leave the patient intubated following the surgery and potentially undergo while in the operating room a transesophageal esophageal echocardiogram looking for vegetations on his heart valves this potentially a reason to seed his right shoulder. I discussed with his that the risks of surgery include but aren't limited to failure to eradicate infection. His surgery would be to simply evacuate the collection of fluid and perform debridement would not deal with any underlying pathology within the shoulder and a definitive fashion such as dealing with a potential rotator cuff arthropathy such as a superior capsular reconstruction or reverse total shoulder arthroplasty. The surgery is palliative in nature potentially diagnostic and should be brief in nature with minimal blood loss and minimal risks to the patient base of the surgical procedure by itself. I stressed with her that her was very ill and potentially simply going to surgery could be enough distress to lead to his dying. She understood my concerns and is agreeable to allowing us to proceed with surgery tomorrow. Status: Acute (2) Streptococcus bovis infection: Status: Acute (3) Acute metabolic encephalopathy: Status: Acute Consult Attestations Medical Necessity Statement: patient requires continued inpatient medical care due to serious potentially life threatening infection source uncertain but with probable septic arthritis of right shoulder Time Spent in Patient Care: 16 - 35 minutes (>than 50% of time spent in counselling and/or direct pt care on unit) . Critical Care Time: Critical Care Time (min): 35 Coding Level of Care Code Acute Patent Legal Assistant for Patrick Baez Diagnoses Effusion of right shoulder joint M25.411 Streptococcus bovis infection A49.1 Acute metabolic encephalopathy G93.41
[2019-10-06 18:18] LABS: Glucose Point of Care 125 mg/dL (70-110)
--- NOTE | 2019-10-06 19:04 | P.CONIM_ITS ---
Providers/Reason For Consult Consulting Physican/Specialty*: Dr. Sifuentes, Cardiology Reason for Consult*: MARINA to r/o infective endocarditis Attending Physician: Jazmin Cody MD History of Present Illness History of Present Illness Azam Mccabe is a 74 year old male with past medical history of COPD, diabetes mellitus type 2, atrial fibrillation on Coumadin, history of frequent alcohol abuse presented to emergency room due to altered mental status. In the emergency room, he was found to have A. fib with RVR. He was found to be hypertensive, febrile and tachypnic. His INR was > 6. Blood culture x 2 grew Strep bovis. There is concern for right shoulder infection and is due to go to OR tomorrow. He also was intubated and extubtaed on 10/03. He continues to be febrile. I have been asked to evaluate the patient for MARINA to r/o infective endocaritis as possible etiology. Review of Systems General: Reports: ROS unobtainable due to mental status Meds/Allergies Home Medications and Allergies Home Medications Medication Instructions Recorded Confirmed Last Taken Type acetaminophen [Acetaminophen Extra 500 - 1,000 mg PO QID PRN 07/11/19 09/28/19 07/11/19 History Strength] allopurinol 100 mg PO DAILY 07/11/19 10/02/19 07/11/19 History budesonide-formoterol [Symbicort] 2 puff INHALATION BID 07/11/19 09/28/19 History colchicine 0.6 mg PO PRN PRN 07/11/19 09/28/19 07/11/19 History melatonin See Rx Instructions .ROUTE .COMPLEX 07/11/19 09/28/19 07/10/19 History sertraline 150 mg PO DAILY 07/11/19 09/28/19 07/11/19 History warfarin See Rx Instructions .ROUTE .COMPLEX 07/11/19 10/02/19 07/10/19 History albuterol sulfate [ProAir HFA] 2 puff INHALATION QID PRN 09/28/19 09/28/19 Unknown History alogliptin 25 mg PO DAILY 09/28/19 10/02/19 Unknown History atorvastatin [Lipitor] 40 mg PO DAILY 09/28/19 10/02/19 Unknown History cholecalciferol (vitamin D3) 50 mcg PO DAILY 09/28/19 10/02/19 Unknown History diltiazem HCl 240 mg PO QAM 09/28/19 10/02/19 Unknown History metaxalone [Skelaxin] 800 mg PO TID PRN #20 tab 09/28/19 10/02/19 Unknown Rx metformin 1,000 mg PO BID 09/28/19 10/02/19 Unknown History metoprolol succinate [Toprol XL] 50 mg PO DAILY #20 tab 09/28/19 10/02/19 Unknown Rx multivitamin [Multiple Vitamins] 1 tab PO DAILY 09/28/19 10/02/19 Unknown History prazosin 2 mg PO BEDTIME 09/28/19 09/28/19 Unknown History sennosides [senna] 17.2 mg PO BID 09/28/19 10/02/19 Unknown History tamsulosin [Flomax] 0.4 mg PO QPM 09/28/19 10/02/19 Unknown History tramadol 50 mg PO Q6H PRN #20 tab 09/28/19 10/02/19 Unknown Rx Allergies Allergy/AdvReac Type Severity Reaction Status Date / Time Penicillins Allergy Unknown Verified 07/11/19 13:11 Current Medications Current Medications Generic Name Dose Route Start Last Admin Trade Name Freq PRN Reason Stop Dose Admin Acetaminophen 650 mg 10/03/19 21:41 10/06/19 14:39 Tylenol PO 650 mg Q6H PRN Administration FEVER Albuterol/Ipratropium 3 ml 10/01/19 21:16 10/06/19 02:56 Duoneb INHALATION 3 ml Q6H.RESPIRATORY PRN Administration SHORTNESS OF BREATH Aspirin 81 mg 10/06/19 09:00 10/05/19 16:10 Aspirin Ec PO 81 mg DAILY DAVID Administration Diltiazem HCl 30 mg 10/04/19 08:30 10/06/19 14:32 Cardizem PO 30 mg Q6H DAVID Administration Enoxaparin Sodium 40 mg 10/06/19 10:15 10/06/19 14:03 Lovenox SUBCUT 40 mg Q24H DAVID Administration Famotidine 20 mg 10/02/19 08:45 10/06/19 09:04 Pepcid Inj IVP 20 mg Q12H DAVID Administration Folic Acid 1 mg 10/02/19 09:00 10/06/19 09:03 Folic Acid PO 1 mg DAILY DAVID Administration Potassium Chloride/Sodium Chloride 20 meq in 1,000 mls @ 50 mls/hr 10/03/19 10:00 10/06/19 02:43 Sodium Chlor 0.45% +Kcl 20 Meq IV 100 mls/hr .Q20H DAVID Administration Clindamycin HCl/Dextrose 900 mg in 50 mls @ 100 mls/hr 10/05/19 08:45 10/06/19 18:11 Cleocin IV 100 mls/hr Q8H DAVID Administration Protocol Vancomycin HCl 1,250 mg/ 250 mls @ 200 mls/hr 10/05/19 13:45 10/06/19 14:03 Sodium Chloride IV 200 mls/hr Q8H DAVID Administration Protocol As Directed Insulin Aspart 0 unit 10/01/19 21:30 10/06/19 14:24 Novolog SUBCUT Not Given Q6H DAVID Protocol Lorazepam 2 mg 10/02/19 08:15 10/06/19 01:18 Ativan IVP 2 mg PRN PRN Administration WITHDRAWAL Protocol Lorazepam 2 mg 10/02/19 08:15 10/05/19 16:10 Ativan PO 2 mg Q4H PRN Administration WITHDRAWAL Protocol Metoprolol Tartrate 5 mg 10/04/19 19:51 10/06/19 05:02 Metoprolol Tartrate IV 5 mg Q6H PRN Administration HR > 110 as long as SBP >/ 95 Metoprolol Tartrate 25 mg 10/05/19 18:00 10/06/19 18:10 Lopressor PO 25 mg BID DAVID Administration Multivitamins Therapeutic 1 tab 10/02/19 09:00 10/06/19 09:03 Multivitamin Tab PO 1 tab DAILY DAVID Administration Thiamine Mononitrate 100 mg 10/06/19 09:00 10/06/19 09:03 Vitamin B-1 PO 100 mg DAILY DAVID Administration PFSH Acute PFSH: Medical History Abdominal aortic aneurysm Aortic stenosis Echocardiogram June 2019 showed valve area of 1.8 cm? with a mean gradient of 9 mmHg, described as moderate stenosis Atrial fibrillation Chronic alcohol dependence, continuous Chronic back pain COPD (chronic obstructive pulmonary disease) Diabetes mellitus Gout Hypertension Peripheral vascular disease Surgical History History of herniorrhaphy History of orthopedic surgery Right shoulder Hx of cholecystectomy Family History Father CAD (coronary artery disease) Social History Smoking and tobacco status: former smoker Alcohol intake: current Alcohol intake frequency: few times a week Vitals/I&O/Wt Last Vital Signs Temp 99.9 F H 10/06/19 12:00 Pulse 90 10/06/19 18:00 Resp 24 H 10/06/19 18:00 BP 159/89 10/06/19 18:00 Pulse Ox 98 10/06/19 18:00 10/06/19 10/06/19 10/06/19 06:59 14:59 22:59 Intake Total 550 / 2980.4 50 / 50 Output Total 1350 / 3200 Balance -800 / -219.6 50 / 50 Physical Exam Const: COMMON NORMALS: alert ORIENTATION/CONSCIOUSNESS: Yes awake HENMT: COMMON NORMALS: normocephalic and atraumatic HEAD & SCALP: normocephalic and atraumatic Eye: COMMON NORMALS: Equal, round and reactive pupils present GENERAL EYE: other (muddy sclera) PUPIL: Yes Equal, round and reactive pupils present Neck/C-Spine: COMMON NORMALS: supple and no JVD Resp: EFFORT & INSPECTION: Yes tachypneic AUSCULTATION: wheezes (intermmitent scattered) Cardio: COMMON NORMALS: no JVD RHYTHM: abnormal rhythm irregularly irregular HEART SOUNDS: no gallops, no murmurs and no rubs GI: COMMON NORMALS: Soft to palpation and non-tender PALPATION: Yes Soft to palpation Extremity: GENERAL: Yes edema (bilateral edema in hands) RIGHT UPPER EXTREMITY: Yes shoulder joint (Right shoulder swelling) Neuro: SENSORIUM/ORIENTATION: Yes alert Skin: COMMON NORMALS: no rashes or lesions noted GENERAL SKIN EXAM: no rashes or lesions noted Urinary Catheter Management^: Benson: Cath Placed During This Visit: yes Reason for Continuing Indwelling Catheter: Accurate Measurement of Urinary Output in Critically Ill Patients Urinary Catheter Date of Insertion: 10/01/19 Urinary Catheter Time of Insertion: 21:28 Data Labs: Other Labs: Laboratory Tests 07/11/19 10/01/19 10/01/19 19:08 18:08 20:41 AST ALT Alkaline Phosphata se Troponin I 6 Hour 40.25 H Troponin T Baselin e 17 H Troponin T 120 Min [place] 29.88 H C-Reactive Protein Procalcitonin Urine Ketones Urine Blood 10/01/19 10/05/19 10/06/19 20:41 04:58 04:06 AST 307 H ALT 201 H Alkaline Phosphata se 278 H Troponin I 6 Hour Troponin T Baselin e Troponin T 120 Min [place] C-Reactive Protein 90.6 H Procalcitonin 0.38 Urine Ketones Urine Blood 10/06/19 15:10 AST ALT Alkaline Phosphata se Troponin I 6 Hour Troponin T Baselin e Troponin T 120 Min [place] C-Reactive Protein Procalcitonin Urine Ketones 1+ H Urine Blood 3+ H Micro: Micro: Microbiology 10/06/19 11:21 Blood Culture - Pr eliminary Blood SPE[facility] 10/06/19 11:20 Blood Culture - Pr eliminary Blood SPECIMEN [facility] 10/05/19 13:40 Gram Stain - Final Synovial Fluid Body Fluid Culture - Preliminary Imaging^: Other Imaging: Radiologist's impression: CT scan shoulder (10/06/19) IMPRESSION: 1. 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 There is pronounced cortical irregularity of the glenoid and large subchondral cysts raising concern for osteomyelitis as well. 2. There ill-defined peripherally collections within the musculature surrounding the shoulder , consistent abscess formations. 3. There is a joint effusion with internal complexity raising concern for septic joint effusion. CT chest (10/06/19) IMPRESSION: There are bilateral pleural effusions with underlying compressive atelectasis or infiltrate. Abdominal ultrasound IMPRESSION: 1. Moderate hepatomegaly and hepatic steatosis. 2. Prior cholecystectomy. 3. Small RIGHT pleural effusion. A&P Assessment and plan (1) Streptococcus bovis infection: There is concern for infective endocarditis. -Plan to proceed with MARINA after right shoulder surgery. Status: Acute (2) Effusion of right shoulder joint: Status: Acute (3) Severe sepsis: Status: Acute (4) Atrial fibrillation: On coumadin at home. Currently held in preparation for procedure. On low dose metoprolol and cardizem. Status: Chronic Qualifiers: Atrial fibrillation type: other persistent Qualified Code(s): I48.19 - Other persistent atrial fibrillation (5) Hypertension: Status: Chronic Qualifiers: Hypertension type: essential hypertension Qualified Code(s): I10 - Essential (primary) hypertension (6) Diabetes mellitus: Status: Chronic Qualifiers: Diabetes mellitus complication status: with hyperglycemia Diabetes m ellitus exterminator helper termite insulin use: with exterminator helper termite use Diabetes mellitus type: type 2 Qualified Code(s): E11.65 - Type 2 diabetes mellitus with hyperglycemia; Z79.4 - terminal gauger (current) use of insulin (7) Acute metabolic encephalopathy: Status: Acute Additional A&P Information Transaminitis NSTEMI type 2 in setting of sepsis Thank you for allowing me to participate in patient's care. Please feel free to call with questions or concerns. 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
[2019-10-06 21:01] LABS: Glucose Point of Care 137 mg/dL (70-110)
[2019-10-06 21:35] LABS: Vancomycin Trough 21.3 ug/mL (10-15)
[2019-10-07] VITALS (15 sets, daily range): BP systolic 121–158; BP diastolic 65–98; PULSE 90–112; RESP 14–33; TEMP 36.9–38.1; O2SAT 88–100
[2019-10-07] MEDS: clindamycin 900 MG/50 ML PREMIX 100 MG IV ×4 (01:13→23:41)
[2019-10-07 02:27] LABS: Glucose Point of Care 125 mg/dL (70-110)
[2019-10-07] MEDS: sodium chlor 0.45% +KCl 20 mEq 20 MEQ/1,000 ML BAG 100 MEQ IV (02:29)
[2019-10-07] MEDS: dilTIAZem 30 mg Tablet PO ×3 (02:29→21:22)
[2019-10-07 05:02] LABS: Basophils # 0.1 10^3/uL (0.0-0.1); Basophils % 0.5 %; Eosinophils # 0.2 10^3/uL (0.0-0.8); Eosinophils % 1.7 %; Hematocrit 33.1 % (42.0-52.0); Hemoglobin 10.6 g/dL (11.7-16.6); Lymphocytes # 1.3 10^3/uL (0.8-4.8); Lymphocytes % 13.7 %; Mean Corpuscular Hemoglobin 32.6 pg (28.0-34.0); Mean Corpuscular Volume 101.8 fL (80-94); Mean Platelet Volume 9.9 fL (7.4-10.4); Monocytes % 10.3 %; Neutrophils # 6.9 10^3/uL (1.8-7.7); Neutrophils % 72.7 %; Nucleated Red Blood Cells % 0 %; Platelet Count 331 10^3/cmm (130-400); Red Blood Count 3.25 10^6/uL (4.1-5.3); Red Cell Distribution Width 13.7 % (12.1-15.1); White Blood Count 9.4 10^3/uL (4.0-10.0)
[2019-10-07 05:05] LABS: INR 1.18 (0.8-1.2)
[2019-10-07 05:26] LABS: C Reactive Protein 97.3 mg/L (0.0-4.9)
[2019-10-07 05:31] LABS: Alanine Aminotransferase 107 U/L (0-41); Albumin Level 2.6 g/dL (3.5-5.2); Alkaline Phosphatase 254 IU/L (40-130); Anion Gap 13.1 (5-19); Aspartate Amino Transferase 95 U/L (0-40); Blood Urea Nitrogen 9 mg/dL (8-23); Calcium 7.3 mg/dL (8.5-10.5); Carbon Dioxide 25 mmol/L (22-29); Chloride 100 mmol/L (98-107); Globulin 2.6 g/dL (1.3-4.6); Glucose 124 mg/dL (65-115); Osmolality Calculated 275 mOsm/kg (285-295); Potassium 4.1 mmol/L (3.5-5.1); Sodium 134 mmol/L (136-145); Total Protein 5.2 g/dL (6.6-8.7)
[2019-10-07 06:18] LABS: Erythrocyte Sedimentation Rate 112 mm/hr (0-10)
--- NOTE | 2019-10-07 07:14 | ANES.PREANE2 ---
Pre-Anesthetic Assessment Pre-Anesthetic Assessment: Height/Weight: Height 1.85 m Weight 108.862 kg Temp Pulse Resp BP Pulse Ox 98.4 F 99 20 H 141/74 97 10/07/19 06:00 10/07/19 06:00 10/07/19 06:00 10/07/19 06:00 10/07/19 06:00 Proposed Procedure: Operation Date: 10/07/19 08:30 Proposed Procedures p Shoulder Arthroscopy(Right) - Joo Barrios DO Familial anesthetic complications: None Last intake: NPO > 8 hrs Social: Social History: Alcohol and Tobacco Comment: CIWA protocol Exam: Pre-Anes Outpt Exam: alert, oriented x 3, clear to auscultation bilaterally and regular rate & rhythm Airway: MP: 3 Dentition: Full Pulmonary: Pulmonary: COPD (recently extubated, still on O2) CV/HEM: CV/HEM: Afib ( W/ RVR in hospital treated with diltizaem and metoprolol), Arrythmia and HTN Comments: Echo 2020 - mod aortic stenosis AAA Metabolic: Metabolic: DM Comments: warfarin induced coagulopathy - improving now Musc/skel: Comments: septic shoulder w/ step bovis on blood cultures (sepsis) Anesthetic Plan: ASA status: 4 Anesthesia: General Meds/Allergies Current Medications: Current Medications Generic Name Dose Route Start Last Admin Trade Name Freq PRN Reason Stop Dose Admin Acetaminophen 650 mg 10/03/19 21:41 10/06/19 14:39 Tylenol PO 650 mg Q6H PRN Administration FEVER Albuterol/Ipratrop ium 3 ml 10/01/19 21:16 10/06/19 02:56 Duoneb INHALATION 3 ml Q6H.RESPIRATORY P RN Administration SHORTNESS OF RAMAN TH Aspirin 81 mg 10/06/19 09:00 10/05/19 16:10 Aspirin Ec PO 81 mg DAILY DAVID Administration Diltiazem HCl 30 mg 10/04/19 08:30 10/07/19 02:29 Cardizem PO 30 mg Q6H DAVID Administration Enoxaparin Sodium 40 mg 10/06/19 10:15 10/06/19 14:03 Lovenox SUBCUT 40 mg Q24H DAVID Administration Famotidine 20 mg 10/02/19 08:45 10/06/19 21:05 Pepcid Inj IVP 20 mg Q12H DAVID Administration Folic Acid 1 mg 10/02/19 09:00 10/06/19 09:03 Folic Acid PO 1 mg DAILY DAVID Administration Potassium Chloride /Sodium Chloride 20 meq in 1,000 m ls @ 50 mls/hr 10/03/19 10:00 10/07/19 02:29 Sodium Chlor 0.4 5% +Kcl 20 Meq IV 100 mls/hr .Q20H DAVID Administration Clindamycin HCl/De xtrose 900 mg in 50 mls @ 100 mls/hr 10/05/19 08:45 10/07/19 01:13 Cleocin IV 100 mls/hr Q8H DAVID Administration Protocol Insulin Aspart 0 unit 10/01/19 21:30 10/07/19 02:25 Novolog SUBCUT Not Given Q6H DAVID Protocol Lorazepam 2 mg 10/02/19 08:15 10/06/19 01:18 Ativan IVP 2 mg PRN PRN Administration WITHDRAWAL Protocol Lorazepam 2 mg 10/02/19 08:15 10/05/19 16:10 Ativan PO 2 mg Q4H PRN Administration WITHDRAWAL Protocol Metoprolol Tartrat e 5 mg 10/04/19 19:51 10/06/19 05:02 Metoprolol Tartr ate IV 5 mg Q6H PRN Administration HR > 110 as long as SBP >/ 95 Metoprolol Tartrat e 25 mg 10/05/19 18:00 10/06/19 18:10 Lopressor PO 25 mg BID DAVID Administration Multivitamins Ther apeutic 1 tab 10/02/19 09:00 10/06/19 09:03 Multivitamin Tab PO 1 tab DAILY DAVID Administration Thiamine Mononitra te 100 mg 10/06/19 09:00 10/06/19 09:03 Vitamin B-1 PO 100 mg DAILY DAVID Administration PFSH Anesthesia PFSH: Medical History Abdominal aortic aneurysm Aortic stenosis Echocardiogram June 2019 showed valve area of 1.8 cm? with a mean gradient of 9 mmHg, described as moderate stenosis Atrial fibrillation Chronic alcohol dependence, continuous Chronic back pain COPD (chronic obstructive pulmonary disease) Diabetes mellitus Gout Hypertension Peripheral vascular disease Surgical History History of herniorrhaphy History of orthopedic surgery Right shoulder Hx of cholecystectomy Family History Father CAD (coronary artery disease) Social History Smoking and tobacco status: former smoker Alcohol intake: current Alcohol intake frequency: few times a week Data Anesthesia CBC & Chem 7: 10/07/19 04:31 10/07/19 04:31 Other Labs: Laboratory Results - last 48 hr 10/05/19 10/05/19 10/05/19 04:58 07:03 10:40 WBC RBC Hgb Hct MCV MCH MCHC RDW Plt Count MPV Neut % (Auto) Lymph % (Auto) Rogers % (Auto) Eos % (Auto) Baso % (Auto) Neut # (Auto) Lymph # (Auto) Rogers # (Auto) Eos # (Auto) Baso # (Auto) Nucleated RBC % (auto) Nucleated RBCs # ESR 108 H PT INR Specimen Type Sample Site ABG pH ABG pCO2 ABG pO2 ABG HCO3 ABG O2 Saturation ABG Base Excess Orion Test A-a O2 Gradient Hematocrit Hgb O2 Saturation Carboxyhemoglobin Methemoglobin Total Hemoglobin Sodium Potassium Glucose Ionized Calcium O2 Delivery Device O2 Liters/Min FiO2 Kitchen Designer ID Chloride Carbon Dioxide Anion Gap BUN Creatinine POC Glucose 136 Calculated Osmolality Lactic Acid Uric Acid Calcium Total Bilirubin AST ALT Alkaline Phosphatase C-Reactive Protein Total Protein Albumin Globulin Urine Color Urine Appearance Urine pH Ur Specific [place] Urine Protein Urine Glucose (UA) Urine Ketones Urine Blood Urine Nitrate Urine Bilirubin Urine Urobilinogen Ur Leukocyte Esterase Urine RBC Urine WBC Ur Squamous Epith Cells Urine Bacteria Urine Mucus Fluid Crystals Synovial Color Synovial Appearance Synovial WBC Synovial RBC Synovial Mononuclear Synov Polynuclear WBCs Synovial Polynuclear % Synovial Mononuclear % Vancomycin Trough Acetaminophen < 5.0 L Hepatitis A IgM Ab Hep Bs Antigen Hep Bs Antibody Hep B Core Total Ab Hepatitis C Antibody Path Cons w/Slide Blood Type Rho(D) Type Antibody Screen 10/05/19 10/05/19 10/05/19 10:40 10:40 13:40 WBC RBC Hgb Hct MCV MCH MCHC RDW Plt Count MPV Neut % (Auto) Lymph % (Auto) Rogers % (Auto) Eos % (Auto) Baso % (Auto) Neut # (Auto) Lymph # (Auto) Rogers # (Auto) Eos # (Auto) Baso # (Auto) Nucleated RBC % (auto) Nucleated RBCs # ESR PT INR Specimen Type Sample Site ABG pH ABG pCO2 ABG pO2 ABG HCO3 ABG O2 Saturation ABG Base Excess Orion Test A-a O2 Gradient Hematocrit Hgb O2 Saturation Carboxyhemoglobin Methemoglobin Total Hemoglobin Sodium Potassium Glucose Ionized Calcium O2 Delivery Device O2 Liters/Min FiO2 Kitchen Designer ID Chloride Carbon Dioxide Anion Gap BUN Creatinine POC Glucose Calculated Osmolality Lactic Acid Uric Acid 2.4 L Calcium Total Bilirubin AST ALT Alkaline Phosphatase C-Reactive Protein 61.6 H Total Protein Albumin Globulin Urine Color Urine Appearance Urine pH Ur Specific [place] Urine Protein Urine Glucose (UA) Urine Ketones Urine Blood Urine Nitrate Urine Bilirubin Urine Urobilinogen Ur Leukocyte Esterase Urine RBC Urine WBC Ur Squamous Epith Cells Urine Bacteria Urine Mucus Fluid Crystals See path consult Synovial Color Synovial Appearance Synovial WBC Synovial RBC Synovial Mononuclear Synov Polynuclear WBCs Synovial Polynuclear % Synovial Mononuclear % Vancomycin Trough Acetaminophen Hepatitis A IgM Ab Hep Bs Antigen Hep Bs Antibody Hep B Core Total Ab Hepatitis C Antibody Path Cons w/Slide Blood Type A Positive Rho(D) Type Positive Antibody Screen Negative 10/05/19 10/05/19 10/05/19 13:40 14:10 16:19 WBC RBC Hgb Hct MCV MCH MCHC RDW Plt Count MPV Neut % (Auto) Lymph % (Auto) Rogers % (Auto) Eos % (Auto) Baso % (Auto) Neut # (Auto) Lymph # (Auto) Rogers # (Auto) Eos # (Auto) Baso # (Auto) Nucleated RBC % (auto) Nucleated RBCs # ESR PT INR Specimen Type Sample Site ABG pH ABG pCO2 ABG pO2 ABG HCO3 ABG O2 Saturation ABG Base Excess Orion Test A-a O2 Gradient Hematocrit Hgb O2 Saturation Carboxyhemoglobin Methemoglobin Total Hemoglobin Sodium Potassium Glucose Ionized Calcium O2 Delivery Device O2 Liters/Min FiO2 Kitchen Designer ID Chloride Carbon Dioxide Anion Gap BUN Creatinine POC Glucose 134 Calculated Osmolality Lactic Acid Uric Acid Calcium Total Bilirubin AST ALT Alkaline Phosphatase C-Reactive Protein Total Protein Albumin Globulin Urine Color Yellow Urine Appearance Clear Urine pH 6 Ur Specific [place] 1.015 Urine Protein Neg Urine Glucose (UA) Norm Urine Ketones 1+ H Urine Blood 3+ H Urine Nitrate Negative Urine Bilirubin Neg Urine Urobilinogen 1 H Ur Leukocyte Esterase Negative Urine RBC 50-80 H Urine WBC None Ur Squamous Epith Cells None Urine Bacteria Trace Urine Mucus Trace Fluid Crystals Synovial Color Red Synovial Appearance Cloudy Synovial WBC 38979 H Synovial RBC 127 H Synovial Mononuclear 0.573 Synov Polynuclear WBCs 11.748 Synovial Polynuclear % 95.300 Synovial Mononuclear % 4.700 Vancomycin Trough Acetaminophen Hepatitis A IgM Ab Hep Bs Antigen Hep Bs Antibody Hep B Core Total Ab Hepatitis C Antibody Path Cons w/Slide Yes Blood Type Rho(D) Type Antibody Screen 10/05/19 10/05/19 10/06/19 17:32 21:31 01:50 WBC RBC Hgb Hct MCV MCH MCHC RDW Plt Count MPV Neut % (Auto) Lymph % (Auto) Rogers % (Auto) Eos % (Auto) Baso % (Auto) Neut # (Auto) Lymph # (Auto) Rogers # (Auto) Eos # (Auto) Baso # (Auto) Nucleated RBC % (auto) Nucleated RBCs # ESR PT INR Specimen Type Arterial Sample Site Radial, left ABG pH 7.51 H ABG pCO2 27.9 L ABG pO2 103.0 H ABG HCO3 22.3 ABG O2 Saturation 99.1 ABG Base Excess 0.4 Orion Test Pos A-a O2 Gradient 57.6 H Hematocrit 40.3 L Hgb O2 Saturation 97.9 Carboxyhemoglobin 0.6 Methemoglobin 0.6 Total Hemoglobin 13.2 L Sodium 135.0 Potassium 3.9 Glucose 145.0 H Ionized Calcium 1.1 O2 Delivery Device Nc O2 Liters/Min 2.0 FiO2 28.0 Kitchen Designer ID cak Chloride Carbon Dioxide Anion Gap BUN Creatinine POC Glucose 131 136 Calculated Osmolality Lactic Acid Uric Acid Calcium Total Bilirubin AST ALT Alkaline Phosphatase C-Reactive Protein Total Protein Albumin Globulin Urine Color Urine Appearance Urine pH Ur Specific [place] Urine Protein Urine Glucose (UA) Urine Ketones Urine Blood Urine Nitrate Urine Bilirubin Urine Urobilinogen Ur Leukocyte Esterase Urine RBC Urine WBC Ur Squamous Epith Cells Urine Bacteria Urine Mucus Fluid Crystals Synovial Color Synovial Appearance Synovial WBC Synovial RBC Synovial Mononuclear Synov Polynuclear WBCs Synovial Polynuclear % Synovial Mononuclear % Vancomycin Trough Acetaminophen Hepatitis A IgM Ab Hep Bs Antigen Hep Bs Antibody Hep B Core Total Ab Hepatitis C Antibody Path Cons w/Slide Blood Type Rho(D) Type Antibody Screen 10/06/19 10/06/19 10/06/19 04:06 04:06 04:06 WBC 8.7 RBC 3.32 L Hgb 11.0 L Hct 34.1 L MCV 102.7 H MCH 33.1 MCHC 32.3 RDW 13.7 Plt Count 315 MPV 9.4 Neut % (Auto) 75.1 Lymph % (Auto) 12.7 Rogers % (Auto) 10.3 Eos % (Auto) 0.9 Baso % (Auto) 0.2 Neut # (Auto) 6.5 Lymph # (Auto) 1.1 Rogers # (Auto) 0.9 Eos # (Auto) 0.1 Baso # (Auto) 0.0 Nucleated RBC % (auto) 0 Nucleated RBCs # 0.0 ESR PT 16.90 H D INR 1.33 H Specimen Type Sample Site ABG pH ABG pCO2 ABG pO2 ABG HCO3 ABG O2 Saturation ABG Base Excess Orion Test A-a O2 Gradient Hematocrit Hgb O2 Saturation Carboxyhemoglobin Methemoglobin Total Hemoglobin Sodium Potassium Glucose Ionized Calcium O2 Delivery Device O2 Liters/Min FiO2 Kitchen Designer ID Chloride Carbon Dioxide Anion Gap BUN Creatinine POC Glucose Calculated Osmolality Lactic Acid Uric Acid Calcium Total Bilirubin AST ALT Alkaline Phosphatase C-Reactive Protein Total Protein Albumin Globulin Urine Color Urine Appearance Urine pH Ur Specific [place] Urine Protein Urine Glucose (UA) Urine Ketones Urine Blood Urine Nitrate Urine Bilirubin Urine Urobilinogen Ur Leukocyte Esterase Urine RBC Urine WBC Ur Squamous Epith Cells Urine Bacteria Urine Mucus Fluid Crystals Synovial Color Synovial Appearance Synovial WBC Synovial RBC Synovial Mononuclear Synov Polynuclear WBCs Synovial Polynuclear % Synovial Mononuclear % Vancomycin Trough Acetaminophen Hepatitis A IgM Ab Non-reactive Hep Bs Antigen Non-reactive Hep Bs Antibody 32.0 H Hep B Core Total Ab Non-reactive Hepatitis C Antibody Non-reactive Path Cons w/Slide Blood Type Rho(D) Type Antibody Screen 10/06/19 10/06/19 10/06/19 04:06 04:06 04:06 WBC RBC Hgb Hct MCV MCH MCHC RDW Plt Count MPV Neut % (Auto) Lymph % (Auto) Rogers % (Auto) Eos % (Auto) Baso % (Auto) Neut # (Auto) Lymph # (Auto) Rogers # (Auto) Eos # (Auto) Baso # (Auto) Nucleated RBC % (auto) Nucleated RBCs # ESR 108 H PT INR Specimen Type Sample Site ABG pH ABG pCO2 ABG pO2 ABG HCO3 ABG O2 Saturation ABG Base Excess Orion Test A-a O2 Gradient Hematocrit Hgb O2 Saturation Carboxyhemoglobin Methemoglobin Total Hemoglobin Sodium Potassium Glucose Ionized Calcium O2 Delivery Device O2 Liters/Min FiO2 Kitchen Designer ID Chloride Carbon Dioxide Anion Gap BUN Creatinine POC Glucose Calculated Osmolality Lactic Acid 1.0 Uric Acid Calcium Total Bilirubin AST ALT Alkaline Phosphatase C-Reactive Protein 90.6 H Total Protein Albumin Globulin Urine Color Urine Appearance Urine pH Ur Specific [place] Urine Protein Urine Glucose (UA) Urine Ketones Urine Blood Urine Nitrate Urine Bilirubin Urine Urobilinogen Ur Leukocyte Esterase Urine RBC Urine WBC Ur Squamous Epith Cells Urine Bacteria Urine Mucus Fluid Crystals Synovial Color Synovial Appearance Synovial WBC Synovial RBC Synovial Mononuclear Synov Polynuclear WBCs Synovial Polynuclear % Synovial Mononuclear % Vancomycin Trough Acetaminophen Hepatitis A IgM Ab Hep Bs Antigen Hep Bs Antibody Hep B Core Total Ab Hepatitis C Antibody Path Cons w/Slide Blood Type Rho(D) Type Antibody Screen 10/06/19 10/06/19 10/06/19 04:06 07:25 14:16 WBC RBC Hgb Hct MCV MCH MCHC RDW Plt Count MPV Neut % (Auto) Lymph % (Auto) Rogers % (Auto) Eos % (Auto) Baso % (Auto) Neut # (Auto) Lymph # (Auto) Rogers # (Auto) Eos # (Auto) Baso # (Auto) Nucleated RBC % (auto) Nucleated RBCs # ESR PT INR Specimen Type Sample Site ABG pH ABG pCO2 ABG pO2 ABG HCO3 ABG O2 Saturation ABG Base Excess Orion Test A-a O2 Gradient Hematocrit Hgb O2 Saturation Carboxyhemoglobin Methemoglobin Total Hemoglobin Sodium 136 Potassium 3.9 Glucose 139 H Ionized Calcium O2 Delivery Device O2 Liters/Min FiO2 Kitchen Designer ID Chloride 102 Carbon Dioxide 22 Anion Gap 15.9 BUN 9 Creatinine 0.4 L POC Glucose 137 120 Calculated Osmolality 280 L Lactic Acid Uric Acid Calcium 8.0 L Total Bilirubin AST ALT Alkaline Phosphatase C-Reactive Protein Total Protein Albumin Globulin Urine Color Urine Appearance Urine pH Ur Specific [place] Urine Protein Urine Glucose (UA) Urine Ketones Urine Blood Urine Nitrate Urine Bilirubin Urine Urobilinogen Ur Leukocyte Esterase Urine RBC Urine WBC Ur Squamous Epith Cells Urine Bacteria Urine Mucus Fluid Crystals Synovial Color Synovial Appearance Synovial WBC Synovial RBC Synovial Mononuclear Synov Polynuclear WBCs Synovial Polynuclear % Synovial Mononuclear % Vancomycin Trough Acetaminophen Hepatitis A IgM Ab Hep Bs Antigen Hep Bs Antibody Hep B Core Total Ab Hepatitis C Antibody Path Cons w/Slide Blood Type Rho(D) Type Antibody Screen 10/06/19 10/06/19 10/06/19 15:10 18:10 20:57 WBC RBC Hgb Hct MCV MCH MCHC RDW Plt Count MPV Neut % (Auto) Lymph % (Auto) Rogers % (Auto) Eos % (Auto) Baso % (Auto) Neut # (Auto) Lymph # (Auto) Rogers # (Auto) Eos # (Auto) Baso # (Auto) Nucleated RBC % (auto) Nucleated RBCs # ESR PT INR Specimen Type Sample Site ABG pH ABG pCO2 ABG pO2 ABG HCO3 ABG O2 Saturation ABG Base Excess Orion Test A-a O2 Gradient Hematocrit Hgb O2 Saturation Carboxyhemoglobin Methemoglobin Total Hemoglobin Sodium Potassium Glucose Ionized Calcium O2 Delivery Device O2 Liters/Min FiO2 Kitchen Designer ID Chloride Carbon Dioxide Anion Gap BUN Creatinine POC Glucose 125 Calculated Osmolality Lactic Acid Uric Acid Calcium Total Bilirubin AST ALT Alkaline Phosphatase C-Reactive Protein Total Protein Albumin Globulin Urine Color Yellow Urine Appearance Clear Urine pH 5 Ur Specific [place] 1.025 Urine Protein Neg Urine Glucose (UA) Norm Urine Ketones 1+ H Urine Blood 3+ H Urine Nitrate Negative Urine Bilirubin Neg Urine Urobilinogen 4 H Ur Leukocyte Esterase Negative Urine RBC 40-50 H Urine WBC 0-4 H Ur Squamous Epith Cells Rare Urine Bacteria 1+ H Urine Mucus 1+ Fluid Crystals Synovial Color Synovial Appearance Synovial WBC Synovial RBC Synovial Mononuclear Synov Polynuclear WBCs Synovial Polynuclear % Synovial Mononuclear % Vancomycin Trough 21.3 H Acetaminophen Hepatitis A IgM Ab Hep Bs Antigen Hep Bs Antibody Hep B Core Total Ab Hepatitis C Antibody Path Cons w/Slide Blood Type Rho(D) Type Antibody Screen 10/06/19 10/07/19 10/07/19 20:58 02:24 04:31 WBC 9.4 RBC 3.25 L Hgb 10.6 L Hct 33.1 L MCV 101.8 H MCH 32.6 MCHC 32.0 RDW 13.7 Plt Count 331 MPV 9.9 Neut % (Auto) 72.7 Lymph % (Auto) 13.7 Rogers % (Auto) 10.3 Eos % (Auto) 1.7 Baso % (Auto) 0.5 Neut # (Auto) 6.9 Lymph # (Auto) 1.3 Rogers # (Auto) 1.0 H Eos # (Auto) 0.2 Baso # (Auto) 0.1 Nucleated RBC % (auto) 0 Nucleated RBCs # 0.0 ESR PT INR Specimen Type Sample Site ABG pH ABG pCO2 ABG pO2 ABG HCO3 ABG O2 Saturation ABG Base Excess Orion Test A-a O2 Gradient Hematocrit Hgb O2 Saturation Carboxyhemoglobin Methemoglobin Total Hemoglobin Sodium Potassium Glucose Ionized Calcium O2 Delivery Device O2 Liters/Min FiO2 Kitchen Designer ID Chloride Carbon Dioxide Anion Gap BUN Creatinine POC Glucose 137 125 Calculated Osmolality Lactic Acid Uric Acid Calcium Total Bilirubin AST ALT Alkaline Phosphatase C-Reactive Protein Total Protein Albumin Globulin Urine Color Urine Appearance Urine pH Ur Specific [place] Urine Protein Urine Glucose (UA) Urine Ketones Urine Blood Urine Nitrate Urine Bilirubin Urine Urobilinogen Ur Leukocyte Esterase Urine RBC Urine WBC Ur Squamous Epith Cells Urine Bacteria Urine Mucus Fluid Crystals Synovial Color Synovial Appearance Synovial WBC Synovial RBC Synovial Mononuclear Synov Polynuclear WBCs Synovial Polynuclear % Synovial Mononuclear % Vancomycin Trough Acetaminophen Hepatitis A IgM Ab Hep Bs Antigen Hep Bs Antibody Hep B Core Total Ab Hepatitis C Antibody Path Cons w/Slide Blood Type Rho(D) Type Antibody Screen 10/07/19 10/07/19 10/07/19 04:31 04:31 04:31 WBC RBC Hgb Hct MCV MCH MCHC RDW Plt Count MPV Neut % (Auto) Lymph % (Auto) Rogers % (Auto) Eos % (Auto) Baso % (Auto) Neut # (Auto) Lymph # (Auto) Rogers # (Auto) Eos # (Auto) Baso # (Auto) Nucleated RBC % (auto) Nucleated RBCs # ESR 112 H PT INR Specimen Type Sample Site ABG pH ABG pCO2 ABG pO2 ABG HCO3 ABG O2 Saturation ABG Base Excess Orion Test A-a O2 Gradient Hematocrit Hgb O2 Saturation Carboxyhemoglobin Methemoglobin Total Hemoglobin Sodium 134 L Potassium 4.1 Glucose 124 H Ionized Calcium O2 Delivery Device O2 Liters/Min FiO2 Kitchen Designer ID Chloride 100 Carbon Dioxide 25 Anion Gap 13.1 BUN 9 Creatinine 0.5 L POC Glucose Calculated Osmolality 275 L Lactic Acid Uric Acid Calcium 7.3 L Total Bilirubin 1.0 AST 95 H ALT 107 H Alkaline Phosphatase 254 H C-Reactive Protein 97.3 H Total Protein 5.2 L Albumin 2.6 L Globulin 2.6 Urine Color Urine Appearance Urine pH Ur Specific [place] Urine Protein Urine Glucose (UA) Urine Ketones Urine Blood Urine Nitrate Urine Bilirubin Urine Urobilinogen Ur Leukocyte Esterase Urine RBC Urine WBC Ur Squamous Epith Cells Urine Bacteria Urine Mucus Fluid Crystals Synovial Color Synovial Appearance Synovial WBC Synovial RBC Synovial Mononuclear Synov Polynuclear WBCs Synovial Polynuclear % Synovial Mononuclear % Vancomycin Trough Acetaminophen Hepatitis A IgM Ab Hep Bs Antigen Hep Bs Antibody Hep B Core Total Ab Hepatitis C Antibody Path Cons w/Slide Blood Type Rho(D) Type Antibody Screen 10/07/19 04:31 WBC RBC Hgb Hct MCV MCH MCHC RDW Plt Count MPV Neut % (Auto) Lymph % (Auto) Rogers % (Auto) Eos % (Auto) Baso % (Auto) Neut # (Auto) Lymph # (Auto) Rogers # (Auto) Eos # (Auto) Baso # (Auto) Nucleated RBC % (auto) Nucleated RBCs # ESR PT 15.40 H INR 1.18 Specimen Type Sample Site ABG pH ABG pCO2 ABG pO2 ABG HCO3 ABG O2 Saturation ABG Base Excess Orion Test A-a O2 Gradient Hematocrit Hgb O2 Saturation Carboxyhemoglobin Methemoglobin Total Hemoglobin Sodium Potassium Glucose Ionized Calcium O2 Delivery Device O2 Liters/Min FiO2 Kitchen Designer ID Chloride Carbon Dioxide Anion Gap BUN Creatinine POC Glucose Calculated Osmolality Lactic Acid Uric Acid Calcium Total Bilirubin AST ALT Alkaline Phosphatase C-Reactive Protein Total Protein Albumin Globulin Urine Color Urine Appearance Urine pH Ur Specific [place] Urine Protein Urine Glucose (UA) Urine Ketones Urine Blood Urine Nitrate Urine Bilirubin Urine Urobilinogen Ur Leukocyte Esterase Urine RBC Urine WBC Ur Squamous Epith Cells Urine Bacteria Urine Mucus Fluid Crystals Synovial Color Synovial Appearance Synovial WBC Synovial RBC Synovial Mononuclear Synov Polynuclear WBCs Synovial Polynuclear % Synovial Mononuclear % Vancomycin Trough Acetaminophen Hepatitis A IgM Ab Hep Bs Antigen Hep Bs Antibody Hep B Core Total Ab Hepatitis C Antibody Path Cons w/Slide Blood Type Rho(D) Type Antibody Screen Micro: Microbiology 10/06/19 11:21 Blood Culture - Preliminary Blood SPECIMEN COLLECTED 10/06/19 11:20 Blood Culture - Preliminary Blood SPECIMEN COLLECTED 10/05/19 13:40 Gram Stain - Final Synovial Fluid Body Fluid Culture - Preliminary Cardiac Studies: No Data to Display
--- NOTE | 2019-10-07 07:45 | P.OP_ITS ---
Operative Report Date of procedure: October 07, 2019 Pre-op Diagnosis: Septic arthritis right shoulder Post-op diagnosis: same Procedure Done: Diagnostic arthroscopy of right shoulder with minimal debridement and irrigation with closure over drain Implants: 1 medium Hemovac drain Specimens removed/disposition: Aerobic & anaerobic cultures Surgeon: Joo Barrios Anesthesia: General Disposition: ICU Brief History: 74-year-old white male with suspected septic arthritis of right shoulder of unclear etiology. Patient is undergone a ultrasound guided aspiration. Ultrasound showed a complex collection of fluid. Aspiration of fluid is no growth as of this time but showed many PMNs. He is growing Streptococcus bovis out of [address] scan of the shoulder shows degenerative arthritis a retained metallic anchor in the humeral head suggestive of previous rotator cuff repair. 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 Plan is to perform a washout obtain cultures perform debridement as indicated. I discussed with the patient's as the patient that was obtunded from his medical condition and was unable to give consent. Explained to the patient's that today surgery is to perform a largely a washout of the shoulder to decrease potential bacteria in the joint. There will be no repairs that are performed at this time as the patient's medical condition is not conducive to that. Explained to her that although the surgical procedure in of itself is a very minor 1 that due to his critical medical condition that there is a possibility that he could on the operating table or thereafter from the stress of surgery as he is very ill. She is agreeable to allow us to proceed with surgery today Procedure: Patient was identified he was transported from the ICU to the operating room. He was placed on the operative table. Is placed under general endotracheal anesthesia. Patient is then positioned in the beachchair positioner he was then sterilely prepped draped usual fashion. Timeout was performed. We used a skin scribe to prabhakar out the bony landmarks. The areas of the intended incisions for the anterior and posterior portals were injected with 10 cc of a one-to-one mixture 1% lidocaine with epinephrine half percent Marcaine. Posterior portal was made with #11 blade. The diagnostic arthros copic sheath with a blunt tip was then inserted into the glenohumeral joint. when the trocar was removed from the arthroscopic sheath some bloody synovial fluid drained out spontaneously. There is no gross purulence noted to the fluid. No foul odor was noted. aerobic and anaerobic cultures were taken. We then attached a bag of saline with antibiotics and dilute epinephrine solution and performed washout of the joint after which we inserted the arthroscope into the shoulder joint. We verified the glenoid the humeral head. We then advanced the scope to the anterior aspect of the shoulder we then put a switching stick in place and tented the skin anteriorly. With a #15 blade and made our anterior incision and then we inserted a 7 mm Arthrex clear cannula over the switching stick into the shoulder joint anteriorly. Arthroscope was then inserted posteriorly and a motorized shaver was inserted through the anterior portal. We use the motorized shaver to perform partial synovectomy to allow for visualization. the patient had degenerative changes of the glenoid and humeral head with changes to grade 4 on the inferior aspect of the glenoid. A type I SLAP lesion that was debrided. There is inflamed synovium. He had a massive nonrepairable rotator cuff tear that we debrided the edges using the motorized shaver. Remove bursal tissue. No pockets of gross purulence were noted within the shoulder joint. We now proceeded to irrigate the right shoulder using multiple liters of sterile saline with dilute epinephrine solution also containing antibiotics. through the anterior portal we inserted a medium Hemovac drain. made a 50 yard line portal and the lateral aspect of the shoulder to insert a grasping forceps to pull the drain into the joint and maintain it there. We then remove the cannula leaving the drain within the shoulder joint. The instruments were then removed from the posterior portal the 3 portal sites were closed with subcutaneous sutures of 2 undyed Vicryl followed by 4-0 nylon on skin. Antibiotic ointment was applied to the portal sites. Sterile dressings were applied. Drapes were removed. The patient was left intubated and transported back to the intensive care unit per plan. Patient tolerated the procedure well. All counts are correct
[2019-10-07] MEDS: EPINEPHrine 1 mg/mL INJ 4 MG XX (08:44)
[2019-10-07] MEDS: neomycin-poly-bacitracin oint 28 gm 1 APPLIC TOPICAL (09:06)
--- NOTE | 2019-10-07 09:42 | ANE.PACU2 ---
Inpatient post-anesthesia follow up: Airway intact: No Vital signs: Temperature 98.4 F Pulse Rate [Monito r] 109 Pulse Rate 90 Respiratory Rate 18 Blood Pressure [Ri ght Arm] 184/119 Blood Pressure 121/69 Pulse Oximetry 99 Oxygen Delivery Me thod Ambu-Bag Oxygen Flow Rate 10 Fraction of Inspir ed Oxygen 30 Hydration adequate: Yes Nausea and vomiting: No Pain level: Other (unable to assess) Additional Comments: patient left intubated post procedure. patient tolerated well vitals within acceptable limits
[2019-10-07] MEDS: propofol 1,000 MG/100 ML INJ 19.6 MG IV (10:08)
--- NOTE | 2019-10-07 10:24 | P.PN_ITS ---
Subjective Subjective: Interval history: Patient seen after surgery this morning. Spoke with Dr. Barrios. He said fluid was primarily bloody and did not appear purulent. It was sent for culture. Last night around 10 PM, patient's temperature dropped to 99.4. This morning prior to surgery temperature was 98.4 so he had started to defervesce for the first time this day before surgery. Spoke with anesthesia. Patient's vocal cords were little bit edematous but they were able to get in an 8.0 ET tube. Patient is scheduled for MARINA tomorrow. Will keep him intubated, with goal of switching to CPAP after paralytics wear off. After the MARINA is completed, depending on what it shows, will be most likely able to extubate. Medications: Reviewed: Yes Medication Review Details: Clindamycin day 2 Vancomycin day 5 Status post aztreonam 4 days ending on 10/04 Status post Levaquin x1 day on 09/30 Vitals/I&O/Wt Last Vital Signs Temp 98.4 F 10/07/19 06:00 Pulse 90 10/07/19 09:09 Resp 14 10/07/19 09:45 BP 121/69 10/07/19 09:09 Pulse Ox 99 10/07/19 09:09 10/06/19 10/07/19 10/07/19 22:59 06:59 14:59 Intake Total 50 / 1100 50 / 1150 700 / 700 Output Total 1300 / 1300 600 / 1900 Balance -1250 / -200 -550 / -750 700 / 700 Physical Exam Const: OTHER: Currently paralyzed and intubated postop HENMT: OTHER: Face is again less flushed, mucous membranes are moist Eye: OTHER: Pupils currently nonreactive due to paralytics Neck/C-Spine: OTHER: Neck remains supple Resp: OTHER: Clear on vent with no wheezes Cardio: OTHER: Irregular rhythm, GI: OTHER: Abdomen soft, nondistended : OTHER: Benson remains in place Extremity: NARRATIVE EXTREMITY EXAM: Both hands are puffy. Right shoulder with drain in place revealing serosanguineous fluid. It is not cloudy. Dressing is intact over the shoulder. Neuro: OTHER: Presently paralyzed on paralytics administered intraoperatively Skin: OTHER: No new skin findings Urinary Catheter Management^: Benson: Cath Placed During This Visit: yes Reason for Continuing Indwelling Catheter: Accurate Measurement of Urinary Output in Critically Ill Patients Urinary Catheter Date of Insertion: 10/01/19 Urinary Catheter Time of Insertion: 21:28 Data : 10/07/19 04:31 10/07/19 04:31 Other Labs: Laboratory Tests 10/05/19 10/05/19 10/06/19 10:40 10:40 04:06 ESR 108 H 108 H C-Reactive Protein 61.6 H 10/06/19 10/07/19 10/07/19 04:06 04:31 04:31 ESR 112 H C-Reactive Protein 90.6 H 97.3 H Micro: Microbiology 10/05/19 14:10 Urine Culture - Preliminary Urine,Clean Catch 10/06/19 11:21 Blood Culture - Preliminary Blood SPECIMEN COLLECTED 10/06/19 11:20 Blood Culture - Preliminary Blood SPECIMEN COLLECTED 10/05/19 13:40 Gram Stain - Final Synovial Fluid Body Fluid Culture - Preliminary A&P Assessment and plan (1) Streptococcus bovis infection: Brings up a concern for endocarditis and GI malignancy. Transthoracic echo unrevealing. Underwent surgical evaluation of right shoulder today with drainage and will have a MARINA tomorrow. Depending on clinical course, may need to consider MRI of the spine and eventual endoscopy. Status: Acute (2) Effusion of right shoulder joint: This is either a hemarthrosis that became infected versus a primary septic joint. Cultures were sent from surgery. Postop day 0 Status: Acute (3) Severe sepsis: As evidenced by leukocytosis, fever, respiratory failure. Did not demonstrate evidence of shock. Slowly improving defervescent's in the last 24 hours along with normalization of white count and improved heart rate. Status: Acute (4) Acute metabolic encephalopathy: Toxic and metabolic encephalopathy, improved Status: Acute (5) Respiratory failure with hypoxia: Intubated 09/30 then extubated 10/03. Had significant mucus plugging at the time of intubation sitting at the vocal cords. Reintubated 10/06 for shoulder surgery with plan to remain intubated for MARINA 10/07. Has been requiring oxygen when not intubated though not on at home. Has probable COPD Status: Acute Qualifiers: Chronicity: acute Qualified Code(s): J96.01 - Acute respiratory failure with hypoxia (6) Atrial fibrillation with RVR: Known chronic atrial fibrillation, home medication list shows beta- blockade and calcium channel blockers chronically. Believe rapid ventricular response was secondary to respiratory issues as well as sepsis at admission. Initially treated with a Cardizem drip. Has transitioned to oral management with intermittent runs of RVR but generally rate controlled. Status: Acute (7) Hypertension: Initially with hypertensive urgency, blood pressures improved with sedation after intubation. Continue to be within acceptable range on current medications. Status: Chronic Qualifiers: Hypertension type: essential hypertension Qualified Code(s): I10 - Essential (primary) hypertension (8) Warfarin-induced coagulopathy: Initial INR 6.95 > 2.94 > 2.88 > 2.15 > 1 unit FFP > 1.33 > 1.18 We will need to resume anticoagulation postoperatively when appropriate. On Coumadin due to A. fib. 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 I will note that echocardiogram did not show any evidence of vegetation although it was a transthoracic. Status: Chronic Qualifiers: Cardiac valve disease etiology: etiology unspecified Qualified Code(s): I35.0 - Nonrheumatic aortic (valve) stenosis (11) COPD (chronic obstructive pulmonary disease): Probable diagnosis based on presentation and history. Status: Chronic Qualifiers: COPD type: unspecified COPD Qualified Code(s): J44.9 - Chronic obstructive pulmonary disease, unspecified (12) Chronic alcohol dependence, continuous: Sounds like he has chronic cognitive issues related to this. Received a banana bag at admit. Blood alcohol level at admission was low suggesting that some of his presentation could have been secondary to acute alcohol withdrawal, though I think the majority of it was due to sepsis from bacteremia Status: Chronic (13) Suspected COVID-19 virus infection: Negative Status: Ruled-out Additional A&P Information -Macrocytosis, likely related to chronic alcohol use and vitamin deficiency -Elevated BNP >> echocardiogram done in June of this year showed an ejection fraction of 55% with moderate pulmonary hypertension with a right ventricular systolic pressure of 43.7 millimeters of mercury, becoming more edematous -Elevated troponin of currently unclear significance, no clear history of coronary artery disease, feel type II process related to A. fib with RVR/sepsis, only nonspecific ST segment changes without elevation -low TSH without prior history >> free T3 is slightly low at 1.8 and free T4 is normal at 1.27. This is consistent with sick euthyroid -Elevated transaminases, downward trend noted. Abdominal ultrasound showed hepatomegaly and hepatic steatosis but was otherwise unremarkable. Suspect related to alcohol and infection versus medication. -Hypoalbuminemia -History of gout Continue vancomycin and Clinda for now, adjusting as per cultures, keeping allergy to penicillin in mind Greatly appreciate orthopedics assistance in this case Cultures were sent from the right shoulder and will need to be followed closely Continue to follow serial blood cultures MARINA is planned for Tuesday, Dr Sifuentes to perform Depending on clinical course, need to consider MRI of the spine especially should patient develop any signs of focal deficits or not have a definitive thaddeus rce of the infection identified between shoulder cultures and MARINA If can clear the spine, will want to consider lumbar puncture although at this point in time he is been on antibiotics along and not sure that it would be very revealing. Right shoulder MRI should be considered after extubation to help guide treatment duration versus following treatment plan for presumptive osteomyelitis in setting of septic joint Will monitor ESR and CRP next few days to see if start to trend downward to facilitate decisions about further evaluation needs and treatment adjustments Currently plan for at least 2 weeks (bacteremia, septic joint), possibly 4-6 weeks (osteomyelitis, endocarditis) IV antibiotics for coverage of bacteremia depending on outcomes from shoulder cultures and MARINA. May be able to trans istion to oral antiobiotics depending on what is found and bioavailable of treatment chosen If 10/01 blood cultures remain no growth after today, can proceed with PICC line placement Patient is currently off of home Coumadin, decision will need to be made about when to resume On oral diltiazem and oral beta-blockade with as needed IV beta-blockade, Cardizem drip stopped 10/02. On aspirin Statin not resumed due to increasing LFTs, consider resumption at discharge On thiamine and folate Continue fluids Trophic feeds today After extubation will need to re-initiate diet DC Benson catheter after MARINA tomorrow or by tuesday unless clear clinical indication to continue Monitor volume status closely Fever control with Tylenol, watch LFTs, Tylenol level earlier in stable okay CIWA protocol still on board if needed On H2 blockade for GI prophylaxis Insulin therapy and monitoring of blood sugars Central line right groin rremoved 10/04, not cultured as was placed when patient was actively bacteremic Has been challenging to confirm what actual medications patient was taking prior to admission. This still needs to be done. At the time of discharge however I would approach medication management as is necessary at that time. Patient's compliance with other regimen is unclear. SCDs for DVT prophylaxis presently, initiate prophylaxis when okay from surgery standpoint, watching for bleeding from shoulder joint Resume PT and OT after MARINA Supportive care otherwise Discussed with nursing and respiratory staff plans of care for today was also informed Consideration may be given to LTAC once ongoing treatment plans identified and no indication necessitating transfer to higher level of care found. I believe patient will at least require skilled placement for rehabilitation and continue IV antibiotics following hospital stay. Benefit of LTAC would be likely ability to have ID evaluation and continued management of right shoulder if indicated Full code Attestations Medical Necessity Statement*: Requires ongoing inpatient stay for continued management of bacteremia and associated conditions as outlined above Coding Level of Care Code Acute Sub Acute Care Nurse for [facility] Fwd Diagnoses Streptococcus bovis infection A49.1 Effusion of right shoulder joint M25.411 Severe sepsis A41.9; R65.20 Acute metabolic encephalopathy G93.41 Respiratory failure with hypoxia J96.01 Chronicity: acute Atrial fibrillation with RVR I48.91 Hypertension I10 Hypertension type: essential hypertension Warfarin-induced coagulopathy D68.32; T45.515A Diabetes mellitus E11.65; Z79.4 Diabetes mellitus type: type 2 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
--- NOTE | 2019-10-07 10:57 | USCV_ITS ---
Azam Mccabe Age: 74 Gender: M : 1945 Exam Date: 10/07/2019 11:32 Ordering Phys: Ethel Sifuentes MD Technologist: Ursula Kim Exam Location: [facility] [place] Indication: SEPSIS, R/O ENDOCARDITIS BP: 124 / 65 HR: 96 Rhythm: Sinus Technical Quality: Good MEASUREMENTS (Male / Female) Normal Values 2D ECHO LVOT Diameter 2.0 cm DOPPLER AV Peak Velocity 306.0 cm/s LVOT Peak Velocity 106.0 cm/s AV Area Cont Eq vti 1.2 cm squared AV Area Cont Eq pk 1.1 cm squared Medications Propofol Complications None Proc. Components Multiple images were obtained at mid esophageal and transgastric level. FINDINGS Left Ventricle Normal left ventricular cavity size with increased left ventricular wall thickness. Moderate concentric left ventricular hypertrophy. Normal left ventricular systolic function. Left ventricular ejection fraction is estimated at 65%. No regional wall motion abnormality. Right Ventricle Normal right ventricular size and systolic function. Right Atrium Normal right atrial size. Right atrial pressure estimated at 3 mmHg. Left Atrium Moderately increased left atrial size. Left atrial smoke noted. LA Appendage Normal left atrial appendage. IA Septum Normal interatrial septum. No patent foramen ovale. No evidence for an atrial septal defect. Mitral Valve Moderate mitral annular calcification. No mitral valve stenosis. Trace mitral valve regurgitation. No evidence of vegetation on mitral valve. Aortic Valve Moderately thickened and calcified trileaflet aortic valve. Moderate aortic valve stenosis, mean gradient 22.5 mmHg, MANOLO 1.2 cm squared. Aortic valve area by 2D planimetry of 1.3 cm squared. Mild-to- moderate aortic valve regurgitation. No evidence of vegetation on aortic valve. Tricuspid Valve Structurally normal tricuspid valve. Trace to mild tricuspid valve regurgitation. No evidence of vegetation on tricuspid valve. Pulmonic Valve Structurally normal pulmonic valve.Trace pulmonary valve regurgitation. No evidence of vegetation on pulmonary valve. Pericardium No pericardial effusion. Aorta Normal size aortic root and proximal ascending aorta. Plaque noted in ascending aorta. No aortic dilation aneurysm or dissection. Grade 3 atheroma noted in proximal descending aorta. CONCLUSIONS 1. This exam was completed on a [employer] Aplio 500 with a PET- 512MC Transesophogeal transducer. 2. Normal left ventricular cavity size. Moderate concentric left ventricular hypertrophy. Normal left ventricular systolic function. Left ventricular ejection fraction is estimated at 65%. No regional wall motion abnormality. 3. Normal right ventricular size and systolic function. 4. Moderate aortic valve stenosis, peak velocity 3 m/s, peak gradient 38 mmHg, mean gradient 22.5 mmHg, MANOLO 1.2 cm squared. Mild-to- moderate aortic valve regurgitation. 5. No evidence of valvular vegetation. 6. Grade 3 atheroma noted in proximal descending aorta. Ethel Sifuentes MD (Electronically Signed) Final Date: 08 Oct 2019 16:57 S
[2019-10-07 11:29] LABS: Glucose Point of Care 123 mg/dL (70-110)
--- NOTE | 2019-10-07 12:09 | PC.OT ---
OT note: Pt had surgery today. Will hold at this time.
--- NOTE | 2019-10-07 12:18 | PC.NURSE ---
[id number] SURGERY STAFF HERE TO TRANSPORT TO OR. PT TALKING TO ON PHONE. [id number] TO ROOM. INTUBATED/PROPOFOL FOR SEDATION.
--- NOTE | 2019-10-07 13:53 | P.PN_ITS ---
Subjective Subjective: Interval history: Patient underwent shoulder surgery this morning. Medications: Reviewed: Yes Medication Review Details: Current Medications Acetaminophen (Tylenol) 650 mg PO Q6H PRN PRN Reason: FEVER Last Admin: 10/06/19 14:39 Dose: 650 mg Documented by: Albuterol/Ipratropium (Duoneb) 3 ml INHALATION Q6H.RESPIRATORY PRN PRN Reason: SHORTNESS OF BREATH Last Admin: 10/06/19 02:56 Dose: 3 ml Documented by: Aspirin (Aspirin Ec) 81 mg PO DAILY [facility] Last Admin: 10/05/19 16:10 Dose: 81 mg Documented by: Clotrimazole (Lotrimin) 1 applic TOPICAL BID [facility] Dextrose (D50w) 25 ml IVP ONCE PRN; Protocol PRN Reason: hypoglycemia protocol Dextrose (D50w) 50 ml IVP PRN PRN; Protocol PRN Reason: hypoglycemia protocol Diltiazem HCl (Cardizem) 30 mg PO Q6H [facility] Last Admin: 10/07/19 02:29 Dose: 30 mg Documented by: Enoxaparin Sodium (Lovenox) 40 mg SUBCUT Q24H [facility] Last Admin: 10/06/19 14:03 Dose: 40 mg Documented by: Famotidine (Pepcid Inj) 20 mg IVP Q12H [facility] Last Admin: 10/06/19 21:05 Dose: 20 mg Documented by: Folic Acid (Folic Acid) 1 mg PO DAILY [facility] Last Admin: 10/06/19 09:03 Dose: 1 mg Documented by: Glucagon (Glucagen) 1 mg IM ONCE PRN; Protocol PRN Reason: Adult Acute Hypoglycemia Prot. Dextrose (D5w) 500 mls @ 100 mls/hr IV ONCE PRN; Protocol PRN Reason: Adult Acute Hypoglycemia Prot Potassium Chloride/Sodium Chloride (Sodium Chlor 0.45% +Kcl 20 Meq) 20 meq in 1,000 mls @ 75 mls/hr IV .[id number] [facility] Last Infusion: 10/07/19 08:49 Dose: Infused Documented by: Clindamycin HCl/Dextrose (Cleocin) 900 mg in 50 mls @ 100 mls/hr IV Q8H DAVID; Protocol Last Infusion: 10/07/19 08:25 Dose: Infused Documented by: Vancomycin HCl 1,250 mg/ (Sodium Chloride) 250 mls @ 200 mls/hr IV Q12H DAVID; Protocol Propofol (Diprivan) 1,000 mg in 100 mls @ 0 mls/hr IV .Q0M [facility]; Protocol Last Admin: 10/07/19 10:08 Dose: 30 mcg/kg/min, 19.6 mls/hr Documented by: Insulin Aspart (Novolog) 0 unit SUBCUT Q6H DAVID; Protocol Last Admin: 10/07/19 02:25 Dose: Not Given Documented by: Lorazepam (Ativan) 2 mg IM Q4H PRN; Protocol PRN Reason: ALCOWD Lorazepam (Ativan) 2 mg IVP PRN PRN; Protocol PRN Reason: WITHDRAWAL Last Admin: 10/06/19 01:18 Dose: 2 mg Documented by: Lorazepam (Ativan) 2 mg PO Q4H PRN; Protocol PRN Reason: WITHDRAWAL Last Admin: 10/05/19 16:10 Dose: 2 mg Documented by: Metoprolol Tartrate (Metoprolol Tartrate) 5 mg IV Q6H PRN PRN Reason: HR > 110 as long as SBP >/ 95 Last Admin: 10/06/19 05:02 Dose: 5 mg Documented by: Metoprolol Tartrate (Lopressor) 25 mg PO BID [facility] Last Admin: 10/06/19 18:10 Dose: 25 mg Documented by: Multivitamins Therapeutic (Multivitamin Tab) 1 tab PO DAILY [facility] Last Admin: 10/06/19 09:03 Dose: 1 tab Documented by: Ondansetron HCl (Zofran) 4 mg IVP Q6H PRN PRN Reason: vomiting, or N/V if npo Thiamine Mononitrate (Vitamin B-1) 100 mg PO DAILY [facility] Last Admin: 10/06/19 09:03 Dose: 100 mg Documented by: Vitals/I&O/Wt Last Vital Signs Temp 98.8 F 10/07/19 12:00 Pulse 99 10/07/19 12:00 Resp 16 10/07/19 12:29 BP 124/65 10/07/19 12:00 Pulse Ox 88 L 10/07/19 12:00 10/06/19 10/07/19 10/07/19 22:59 06:59 14:59 Intake Total 50 / 1100 50 / 1150 700 / 700 Output Total 1300 / 1300 600 / 1900 Balance -1250 / -200 -550 / -750 700 / 700 Physical Exam Narrative: EXAM NARRATIVE: Const COMMON NORMALS: Intubated and sedated HENMT COMMON NORMALS: normocephalic and atraumatic HEAD & SCALP: normocephalic and atraumatic Eye COMMON NORMALS: Equal, round and reactive pupils present GENERAL EYE: other (muddy sclera) PUPIL: Yes Equal, round and reactive pupils present Neck/C-Spine COMMON NORMALS: supple and no JVD Resp EFFORT & INSPECTION: Yes tachypneic AUSCULTATION: wheezes (intermmitent scattered) Cardio COMMON NORMALS: no JVD RHYTHM: abnormal rhythm irregularly irregular HEART SOUNDS: no gallops, no murmurs and no rubs GI COMMON NORMALS: Soft to palpation and non-tender PALPATION: Yes Soft to palpation Extremity GENERAL: Yes edema (bilateral edema in hands) RIGHT UPPER EXTREMITY: Yes shoulder joint (Right shoulder swelling) Neuro SENSORIUM/ORIENTATION: Yes alert Skin COMMON NORMALS: no rashes or lesions noted Urinary Catheter Management^: Benson: Cath Placed During This Visit: yes Reason for Continuing Indwelling Catheter: Accurate Measurement of Urinary Output in Critically Ill Patients Urinary Catheter Date of Insertion: 10/01/19 Urinary Catheter Time of Insertion: 21:28 Data : 10/07/19 04:31 10/07/19 04:31 Micro: Microbiology 10/05/19 13:40 Gram Stain - Final Synovial Fluid Body Fluid Culture - Preliminary 10/07/19 08:41 Gram Stain - Final Synovial Fluid 10/06/19 11:21 Blood Culture - Preliminary Blood NEGATIVE TO DATE 10/06/19 11:20 Blood Culture - Preliminary Blood NEGATIVE TO DATE 10/05/19 14:10 Urine Culture - Preliminary Urine,Clean Catch A&P Assessment and plan (1) Streptococcus bovis infection: There is concern for infective endocarditis. -No evidence of vegetation on MARINA. -He is currently on vancomycin and clindamycin. He probably would benefit from colonoscopy. Status: Acute (2) Effusion of right shoulder joint: S/p surgery this morning. Concern for hemarthrosis that became infected/septic arthritis. -Results of culture pending Status: Acute (3) Severe sepsis: Status: Acute (4) Atrial fibrillation: On coumadin at home. Currently held in preparation for procedure. On low dose metoprolol and cardizem. 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 Please feel free to call with questions or concerns. Attestations Medical Necessity Statement*: As per primary team Procedures Time out/Consent Time Out Performed: Yes Consent for Procedure: Consent obtained from other (indicate) ( (Suyl)), Risks & Benefits reviewed and Agrees to proceed with procedure Procedure Narrative MARINA Procedure note Indication: Streptococcus bovis infection rule out endocarditis Sedation: Propofol The procedure was performed bedside in ICU. Timeout was called. The probe was inserted on second attempt. No blood on the probe post procedure. Prelim report: Normal left ventricle size and systolic function. No evidence of vegetation noted on valves. no left atrial or left atrial appendage mass or thrombus visualized. No ASD or PFO identified. Full report to follow. Patient tolerated the procedure well. Coding Level of Care Code Acute Manager Icu for g Fwd Diagnoses Streptococcus bovis infection A49.1 Effusion of right shoulder joint M25.411 Severe sepsis A41.9; R65.20 Atrial fibrillation I48.19 Atrial fibrillation type: other persistent Hypertension I10 Hypertension type: essential hypertension Diabetes mellitus E11.65; Z79.4 Diabetes mellitus type: type 2 Diabetes mellitus joint terminal attack controller insulin use: with custodial use Diabetes mellitus complication status: with hyperglycemia Acute metabolic encephalopathy G93.41
[2019-10-07] MEDS: enoxaparin 40 mg/0.4 mL Syringe SUBCUT (14:37)
[2019-10-07] MEDS: metoprolol tartrate 1 mg/1 mL SDV 5 mL 5 MG IV (14:38)
[2019-10-07] MEDS: morphine 4 mg/mL SDV 1 mL IVP (15:24)
[2019-10-07 16:57] LABS: Glucose Point of Care 137 mg/dL (70-110)
[2019-10-07 16:57] LABS: Glucose Point of Care 143 mg/dL (70-110)
[2019-10-07] MEDS: metoprolol tartrate 25 mg Tablet PO (19:19)
[2019-10-07] MEDS: clotrimazole 1% cream 30 gm 1 APPLIC TOPICAL (19:20)
[2019-10-07 19:59] LABS: Glucose Point of Care 108 mg/dL (70-110)
--- NOTE | 2019-10-07 20:54 | PC.PHAR ---
Vancomycin trough level at dose of 1250mg IVPB every 8 hours is 21.3. The next dose is held and resumed at 1250mg IVPB eery 12 hours with another trough level to be obtained before the fourth dose at this rate.
[2019-10-07] MEDS: famotidine 20 mg/2 mL INJ IVP (21:22)
[2019-10-07] MEDS: sodium chlor 0.45% +KCl 20 mEq 20 MEQ/1,000 ML BAG 30 MEQ IV (23:40)
[2019-10-08] VITALS (18 sets, daily range): BP systolic 110–150; BP diastolic 56–112; PULSE 92–127; RESP 17–30; TEMP 37.5–37.9; O2SAT 90–97
[2019-10-08] MEDS: dilTIAZem 30 mg Tablet PO ×4 (02:08→20:54)
[2019-10-08 02:17] LABS: Glucose Point of Care 107 mg/dL (70-110)
--- NOTE | 2019-10-08 03:43 | PC.NURSE ---
CIWA protocol Discontinued at this time per protocol. Score < 10 X 48 hrs.
[2019-10-08 05:05] LABS: Basophils # 0.1 10^3/uL (0.0-0.1); Basophils % 0.6 %; Eosinophils # 0.2 10^3/uL (0.0-0.8); Eosinophils % 1.8 %; Hemoglobin 10.5 g/dL (11.7-16.6); Lymphocytes # 1.1 10^3/uL (0.8-4.8); Mean Corpuscular HGB Conc 31.8 g/dL (30.0-36.0); Mean Corpuscular Hemoglobin 32.4 pg (28.0-34.0); Mean Corpuscular Volume 101.9 fL (80-94); Mean Platelet Volume 10.2 fL (7.4-10.4); Monocytes # 0.9 10^3/uL (0.2-0.9); Monocytes % 10.8 %; Neutrophils # 5.8 10^3/uL (1.8-7.7); Neutrophils % 71.7 %; Nucleated Red Blood Cells % 0 %; Platelet Count 351 10^3/cmm (130-400); Red Blood Count 3.24 10^6/uL (4.1-5.3); Red Cell Distribution Width 13.8 % (12.1-15.1); White Blood Count 8.1 10^3/uL (4.0-10.0)
[2019-10-08 05:26] LABS: Alanine Aminotransferase 138 U/L (0-41); Albumin Level 2.2 g/dL (3.5-5.2); Alkaline Phosphatase 385 IU/L (40-130); Anion Gap 15.9 (5-19); Aspartate Amino Transferase 179 U/L (0-40); Blood Urea Nitrogen 10 mg/dL (8-23); C Reactive Protein 71.8 mg/L (0.0-4.9); Carbon Dioxide 24 mmol/L (22-29); Chloride 102 mmol/L (98-107); Globulin 3.7 g/dL (1.3-4.6); Glucose 121 mg/dL (65-115); Osmolality Calculated 283 mOsm/kg (285-295); Potassium 3.9 mmol/L (3.5-5.1); Sodium 138 mmol/L (136-145); Total Protein 5.9 g/dL (6.6-8.7)
[2019-10-08 06:02] LABS: Erythrocyte Sedimentation Rate 108 mm/hr (0-10)
--- NOTE | 2019-10-08 07:25 | PM.PN ---
Subjective Subjective: Interval history: 74-year-old white male postoperative day 1 status post diagnostic arthroscopy of the right shoulder with minimal debridement and washout of the joint. Patient was found to have a massive retracted tear of his rotator cuff. He has rotator cuff arthropathy with arthritic change of the glenoid and the humeral head. I discussed the surgical findings with the patient's via telephone yesterday. Vitals/I&O/Wt Last Vital Signs Temp 100.2 F H 10/08/19 06:00 Pulse 100 10/08/19 06:00 Resp 20 H 10/08/19 04:00 BP 132/76 10/08/19 06:00 Pulse Ox 94 10/08/19 06:00 10/07/19 10/08/19 10/08/19 22:59 06:59 14:59 Intake Total 1150 / 2250 Output Total 990 / 1020 615 / 1635 Balance 160 / 1230 -615 / 615 -20 Physical Exam Narrative: EXAM NARRATIVE: 74-year-old white male no acute distress. vital signs stable, afebrile. Dressing removed and drain pulled from right shoulder. No evidence of infection of portal sites. patient is alert and cooperative. He voices no complaints of pain in his right shoulder. Urinary Catheter Management^: Benson: Cath Placed During This Visit: yes Reason for Continuing Indwelling Catheter: Accurate Measurement of Urinary Output in Critically Ill Patients Urinary Catheter Date of Insertion: 10/01/19 Urinary Catheter Time of Insertion: 21:28 Data : 10/08/19 04:26 10/08/19 04:26 Micro: Microbiology 10/02/19 15:00 Blood Culture - Final Blood NO GROWTH AFTER 5 DAYS 10/02/19 14:55 Blood Culture - Final Blood NO GROWTH AFTER 5 DAYS 10/05/19 13:40 Gram Stain - Final Synovial Fluid Body Fluid Culture - Preliminary 10/07/19 08:41 Gram Stain - Final Synovial Fluid 10/06/19 11:21 Blood Culture - Preliminary Blood NEGATIVE TO DATE 10/06/19 11:20 Blood Culture - Preliminary Blood NEGATIVE TO DATE 10/05/19 14:10 Urine Culture - Preliminary Urine,Clean Catch A&P Assessment and plan (1) 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 Gram stain showed no organisms but does show white blood cells in the bloody fluid that was obtained from the shoulder joint at the time of insertion of the arthroscopic trocar. 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 patient is allowed to use his right shoulder as tolerated. Asked not to lift greater than 5 pounds. He may wean out of the sling as he sees fit. He may perform pendulum exercises range of motion of his elbow forearm wrist and fingers. I believe that activities attempted at or above shoulder height will be a difficult for the patient then should be avoided if they cause discomfort.. Follow-up in the office in 2 weeks at the end of October 16 or for suture removal and to increase activities. Status: Chronic (2) Streptococcus bovis infection: Status: Acute (3) Severe sepsis: Status: Resolved Attestations Medical Necessity Statement*: patient requires continued inpatient level care until medical team deems the patient stable for discharge. From an orthopedic perspective the patient may be discharged anytime. I will remove his drain today. He has a sling for comfort. Physical therapy instruct him on performing pendulum exercises range of motion of the elbow. Sling were will be optional at discharge. I would have him follow-up in the office on or about 10/19/2019 for suture removal. We'll review the intraoperative findings.We will discuss progressing his activity at that time. 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
--- NOTE | 2019-10-08 09:03 | PC.SOCIAL ---
IMM Update Pg 2 of IMM given and explained to patient who verbalized understanding. Initialed, dated, and timed and placed in chart.
--- NOTE | 2019-10-08 09:34 | P.PN_ITS ---
Subjective Subjective: Interval history: Assuming care of this complex patient. Chart reviewed extensively. Low grade temp overnight, Tmax-100.2 F, intermittently tachycardic, BP wnl. AM labs noted, stable Hg, no leukocytosis, INR-1.18. Patient seen and examined, drain removed earlier this morning by Dr. Barrios, he states that he has better range of motion today and decreased pain in his rig ht shoulder. Clean dressing in place, sutures intact. Will discontinue Benson catheter. Is requiring maximum assist with out of bed activity. Pending PICC line placement. Medications: Reviewed: Yes Medication Review Details: Active Medications Generic Name Dose Route Start Last Admin Trade Name Freq PRN Reason Stop Dose Admin Acetaminophen 650 mg 10/03/19 21:41 10/06/19 14:39 Tylenol PO 650 mg Q6H PRN Administration FEVER Albuterol/Ipratrop ium 3 ml 10/01/19 21:16 10/06/19 02:56 Duoneb INHALATION 3 ml Q6H.RESPIRATORY P RN Administration SHORTNESS OF RAMAN TH Aspirin 81 mg 10/06/19 09:00 10/05/19 16:10 Aspirin Ec PO 81 mg DAILY DAVID Administration Clotrimazole 1 applic 10/06/19 18:00 10/07/19 19:20 Lotrimin TOPICAL 1 applic BID DAVID Administration Dextrose 25 ml 10/01/19 21:16 D50w IVP ONCE PRN hypoglycemia prot ocol Protocol Dextrose 50 ml 10/01/19 21:16 D50w IVP PRN PRN hypoglycemia prot ocol Protocol Diltiazem HCl 30 mg 10/04/19 08:30 10/08/19 02:08 Cardizem PO 30 mg Q6H DAVID Administration Enoxaparin Sodium 40 mg 10/06/19 10:15 10/07/19 14:37 Lovenox SUBCUT 40 mg Q24H DAVID Administration Famotidine 20 mg 10/02/19 08:45 10/07/19 21:22 Pepcid Inj IVP 20 mg Q12H DAVID Administration Folic Acid 1 mg 10/02/19 09:00 10/06/19 09:03 Folic Acid PO 1 mg DAILY DAVID Administration Glucagon 1 mg 10/01/19 21:16 Glucagen IM ONCE PRN Adult Acute Hypog lycemia Prot. Protocol Dextrose 500 mls @ 100 mls /hr 10/01/19 21:16 D5w IV ONCE PRN Adult Acute Hypog lycemia Prot Protocol Potassium Chloride /Sodium Chloride 20 meq in 1,000 m ls @ 30 mls/hr 10/03/19 10:00 10/08/19 02:13 Sodium Chlor 0.4 5% +Kcl 20 Meq IV Not Given .Q24H DAVID Clindamycin HCl/De xtrose 900 mg in 50 mls @ 100 mls/hr 10/05/19 08:45 10/07/19 23:41 Cleocin IV 100 mls/hr Q8H DAVID Administration Protocol Vancomycin HCl 1,2 50 mg/ 250 mls @ 200 mls /hr 10/07/19 14:00 10/08/19 02:08 Sodium Chloride IV 200 mls/hr Q12H DAVID Administration Protocol As Directed Propofol 1,000 mg in 100 m ls @ 0 mls/hr 10/07/19 09:45 10/07/19 10:08 Diprivan IV 30 mcg/kg/min .Q0M DAVID 19.6 mls/hr Administration Protocol Per Protocol Insulin Aspart 0 unit 10/01/19 21:30 10/08/19 02:13 Novolog SUBCUT Not Given Q6H DAVID Protocol Lorazepam 2 mg 10/02/19 08:15 Ativan IM Q4H PRN ALCOWD Protocol Lorazepam 2 mg 10/02/19 08:15 10/06/19 01:18 Ativan IVP 2 mg PRN PRN Administration WITHDRAWAL Protocol Lorazepam 2 mg 10/02/19 08:15 10/05/19 16:10 Ativan PO 2 mg Q4H PRN Administration WITHDRAWAL Protocol Metoprolol Tartrat e 5 mg 10/04/19 19:51 10/07/19 14:38 Metoprolol Tartr ate IV 5 mg Q6H PRN Administration HR > 110 as long as SBP >/ 95 Metoprolol Tartrat e 25 mg 10/05/19 18:00 10/07/19 19:19 Lopressor PO 25 mg BID DAVID Administration Morphine Sulfate 2 mg 10/07/19 15:08 Morphine IVP Q4H PRN MILD TO MODERATE PAIN Morphine Sulfate 4 mg 10/07/19 15:08 10/07/19 15:24 Morphine IVP 4 mg Q4H PRN Administration SEVERE PAIN Multivitamins Ther apeutic 1 tab 10/02/19 09:00 10/06/19 09:03 Multivitamin Tab PO 1 tab DAILY DAVID Administration Ondansetron HCl 4 mg 10/01/19 21:06 Zofran IVP Q6H PRN vomiting, or N/V if npo Thiamine Mononitra te 100 mg 10/06/19 09:00 10/06/19 09:03 Vitamin B-1 PO 100 mg DAILY DAVID Administration Penicillins Allergy (Verified 07/11/19 13:11) Unknown Vitals/I&O/Wt Last Vital Signs Temp 100.2 F H 10/08/19 06:00 Pulse 99 10/08/19 09:02 Resp 18 10/08/19 09:02 BP 132/76 10/08/19 06:00 Pulse Ox 97 10/08/19 09:02 10/07/19 10/08/19 10/08/19 22:59 06:59 14:59 Intake Total 1150 / 2250 Output Total 990 / 1020 615 / 1635 Balance 160 / 1230 -615 / 615 - Physical Exam Const: COMMON NORMALS: no acute distress and patient oriented x3 GENERAL APPEARANCE: cooperative and comfortable NUTRITIONAL APPEARANCE: obese m orbidly obese ORIENTATION/CONSCIOUSNESS: Yes awake HENMT: COMMON NORMALS: normocephalic, atraumatic, hearing grossly normal bilaterally and moist oral mucous membranes HEAD & SCALP: normocephalic and atraumatic Eye: COMMON NORMALS: Equal, round and reactive pupils present, EOMs intact bilaterally and conjunctivae normal CONJUNCTIVA: Yes conjunctivae normal PUPIL: Yes Equal, round and reactive pupils present Neck/C-Spine: COMMON NORMALS: full ROM GENERAL: Yes normal visual inspection and Yes trachea midline Resp: COMMON NORMALS: normal respiratory effort, No retractions, No use of accessory muscles and clear to auscultation bilaterally EFFORT & INSPECTION: Yes able to speak in complete sentences, Yes symmetric chest movement and No tachypneic AUSCULTATION: clear to auscultation bilaterally Cardio: COMMON NORMALS: regular rate, regular rhythm, S1 normal heart sound present, S2 normal heart sound present and No murmurs present (Cardio) RATE: regular rate RHYTHM: regular rhythm HEART SOUNDS: S1 normal heart sound present and S2 normal heart sound present GI: COMMON NORMALS: Normal to inspection, nondistended, normoactive bowel sounds present, Soft to palpation and non-tender INSPECTION: Yes central obesity PALPATION: Yes Soft to palpation : BLADDER/KIDNEY EXAM: Yes catheter in place Catheter type (Male): urethral Extremity: COMMON NORMALS: normal to inspection, full ROM and no clubbing, cyanosis or edema; negative for no pedal edema RIGHT UPPER EXTREMITY: Yes shoulder joint (Limited range of motion, clean dressing in place, sutures intact) Neuro: COMMON NORMALS: patient oriented x3, moves all extremities, no focal motor deficits and no sensory deficits noted Psych: COMMON NORMALS: mental status grossly normal, Normal thought process present, cooperative, normal affect and speech normal SPEECH: Yes normal speech THOUGHT PROCESS: Normal thought process present Skin: COMMON NORMALS: no rashes or lesions noted, no jaundice, no petechiae and no mottling GENERAL SKIN EXAM: no rashes or lesions noted Urinary Catheter Management^: Benson: Cath Placed During This Visit: yes Reason for Continuing Indwelling Catheter: Accurate Measurement of Urinary Output in Critically Ill Patients Urinary Catheter Date of Insertion: 10/01/19 Urinary Catheter Time of Insertion: 21:28 Data : 10/08/19 04:26 10/08/19 04:26 Micro: Microbiology 10/02/19 15:00 Blood Culture - Final Blood NO GROWTH AFTER 5 DAYS 10/02/19 14:55 Blood Culture - Final Blood NO GROWTH AFTER 5 DAYS 10/05/19 13:40 Gram Stain - Final Synovial Fluid Body Fluid Culture - Preliminary 10/07/19 08:41 Gram Stain - Final Synovial Fluid 10/06/19 11:21 Blood Culture - Preliminary Blood NEGATIVE TO DATE 10/06/19 11:20 Blood Culture - Preliminary Blood NEGATIVE TO DATE 10/05/19 14:10 Urine Culture - Preliminary Urine,Clean Catch A&P Assessment and plan (1) Streptococcus bovis infection: -4/4 bottles of blood cx (09/30) positive for Strep bovis -with associated sepsis as evidenced by leukocytosis, fever, -subsequent blood cultures negative -continues to be febrile though fever curve is trending down -possibility of OM on CT R shoulder; now s/p diagnostic arthroscopy with minimal debridement and washout. 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 Barrios appreciated Status: Acute (5) Respiratory failure with hypoxia: -extubated on 10/06 -clinically appears to have COPD, not oxygen dependent at baseline -wean off supplemental oxygen as tolerated; may need home oxygen evaluation prior to d/c -COVID-19 negative Status: Acute Qualifiers: Chronicity: acute Qualified Code(s): J96.01 - Acute respiratory failure with hypoxia (6) COPD (chronic obstructive pulmonary disease): -as noted above Status: Chronic Qualifiers: COPD type: unspecified COPD Qualified Code(s): J44.9 - Chronic obstructive pulmonary disease, unspecified (7) Aortic stenosis: -limited Echo shows EF=55%, previously noted to have moderate Status: Chronic Qualifiers: Cardiac valve disease etiology: etiology unspecified Qualified Code(s): I35.0 - Nonrheumatic aortic (valve) stenosis (8) Atrial fibrillation with RVR: -HR better controlled -on BB, diltiazem; off Cardizem drip -Echo as noted above -telemetry monitoring -Coumadin on hold, INR-1.18 -continue to monitor vital signs Status: Acute (9) Warfarin-induced coagulopathy: -Coumadin held for arthroscopy and MARINA; discuss with Ortho is safe to resume -INR-1.18 -did require 1 unit of FFPs to reverse coagulopathy Status: Acute (10) Chronic alcohol dependence, continuous: -known EtOH abuse -received banana bag on admission -on MVI, folic acid daily -not actively withdrawing Status: Chronic Additional A&P Information -Obesity: BMI-32 kg/m2 -NIDDM type II; on ISS -Macrocytic anemia; H/H stable, likely secondary to EtOH abuse, vitamin deficiency -Elevated LFTs; noted trend, statin on hold -low TSH, normal free T4 -Gout -Chronic HFpEF; Echo as noted above, also noted to have moderate pulmonary HTN -on GI soft diet -PT/OT evaluations -GI ppx with Famotidine -DVT ppx with Lovenox -has Benson catheter in place; anticipate removal today -Dispo: SNF, [facility] is first choice -Code status: FULL code -may consider transfer to floor if improving tomorrow Attestations Medical Necessity Statement*: Patient requires hospitalization for continued IV antibiotics, pending PICC line placement, being afebrile x 24 hrs, appropriate disposition. Time Spent in Patient Care: Greater than 35 minutes (>than 50% of time spent in counselling and/or direct pt care on unit) . 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
[2019-10-08] MEDS: aspirin 81 mg EC Tablet PO (10:08)
[2019-10-08] MEDS: metoprolol tartrate 25 mg Tablet PO ×2 (10:09→18:22)
[2019-10-08] MEDS: thiamine 100 mg Tablet PO (10:09)
[2019-10-08] MEDS: folic acid 1 mg Tablet PO (10:09)
[2019-10-08] MEDS: multivitamin therapeutic Tablet 1 TAB PO (10:09)
[2019-10-08] MEDS: famotidine 20 mg/2 mL INJ IVP ×2 (10:10→20:54)
[2019-10-08] MEDS: clindamycin 900 MG/50 ML PREMIX 100 MG IV ×2 (10:17→16:59)
[2019-10-08 13:01] LABS: Glucose Point of Care 194 mg/dL (70-110)
[2019-10-08] MEDS: enoxaparin 40 mg/0.4 mL Syringe SUBCUT (15:15)
[2019-10-08 16:47] LABS: Glucose Point of Care 95 mg/dL (70-110)
[2019-10-08] MEDS: clotrimazole 1% cream 30 gm 1 APPLIC TOPICAL (18:22)
[2019-10-08 20:28] LABS: Glucose Point of Care 167 mg/dL (70-110)
[2019-10-09] VITALS (21 sets, daily range): BP systolic 92–174; BP diastolic 78–127; PULSE 82–115; RESP 15–41; TEMP 36.6–37.3; O2SAT 72–98
[2019-10-09] MEDS: metoprolol tartrate 1 mg/1 mL SDV 5 mL 5 MG IV (01:04)
[2019-10-09 01:40] LABS: Vancomycin Trough 12.4 ug/mL (10-15)
[2019-10-09] MEDS: clindamycin 900 MG/50 ML PREMIX 100 MG IV ×3 (02:13→17:13)
[2019-10-09] MEDS: dilTIAZem 30 mg Tablet PO ×4 (02:24→21:13)
[2019-10-09] MEDS: acetaminophen 325 mg Tablet 650 MG PO (02:24)
[2019-10-09 04:15] LABS: Glucose Point of Care 124 mg/dL (70-110)
[2019-10-09 06:05] LABS: C Reactive Protein 54.5 mg/L (0.0-4.9)
[2019-10-09 06:22] LABS: Alanine Aminotransferase 108 U/L (0-41); Albumin Level 2.4 g/dL (3.5-5.2); Alkaline Phosphatase 341 IU/L (40-130); Anion Gap 14.5 (5-19); Aspartate Amino Transferase 106 U/L (0-40); Blood Urea Nitrogen 9 mg/dL (8-23); Calcium 8.4 mg/dL (8.5-10.5); Carbon Dioxide 24 mmol/L (22-29); Chloride 101 mmol/L (98-107); Globulin 3.4 g/dL (1.3-4.6); Glucose 138 mg/dL (65-115); Osmolality Calculated 280 mOsm/kg (285-295); Potassium 3.5 mmol/L (3.5-5.1); Sodium 136 mmol/L (136-145); Total Bilirubin 0.8 mg/dL (0.15-1.2); Total Protein 5.8 g/dL (6.6-8.7)
[2019-10-09 07:13] LABS: Erythrocyte Sedimentation Rate 104 mm/hr (0-10)
[2019-10-09] MEDS: multivitamin therapeutic Tablet 1 TAB PO (08:00)
[2019-10-09] MEDS: folic acid 1 mg Tablet PO (08:00)
[2019-10-09] MEDS: aspirin 81 mg EC Tablet PO (08:00)
[2019-10-09] MEDS: famotidine 20 mg/2 mL INJ IVP ×2 (08:00→21:13)
[2019-10-09] MEDS: thiamine 100 mg Tablet PO (08:00)
[2019-10-09] MEDS: metoprolol tartrate 25 mg Tablet PO ×2 (08:00→17:13)
[2019-10-09 08:15] LABS: Glucose Point of Care 185 mg/dL (70-110)
[2019-10-09] MEDS: clotrimazole 1% cream 30 gm 1 APPLIC TOPICAL (08:16)
[2019-10-09 11:12] LABS: Glucose Point of Care 131 mg/dL (70-110)
--- NOTE | 2019-10-09 12:22 | PM.PN ---
Subjective Subjective: Interval history: AM labs noted with stable hemoglobin, had 1425 mL urine output overnight, noted drop in ESR and CRP as well as improvement in liver function tests. Has been afebrile since approximately 0730 yesterday. Hemodynamically stable. Synovial fluid culture prelim negative. He is POD # 2 s/p diagnostic athroscopy with debridement and washout. He is resting comfortably in bed, currently working with occupational therapy, had some increased discomfort in right shoulder earlier this morning which has since improved. Medications: Reviewed: Yes Medication Review Details: Active Medications Generic Name Dose Route Start Last Admin Trade Name Freq PRN Reason Stop Dose Admin Acetaminophen 650 mg 10/03/19 21:41 10/09/19 02:24 Tylenol PO 650 mg Q6H PRN Administration FEVER Albuterol/Ipratrop ium 3 ml 10/01/19 21:16 10/06/19 02:56 Duoneb INHALATION 3 ml Q6H.RESPIRATORY P RN Administration SHORTNESS OF RAMAN TH Aspirin 81 mg 10/06/19 09:00 10/09/19 08:00 Aspirin Ec PO 81 mg DAILY DAVID Administration Clotrimazole 1 applic 10/06/19 18:00 10/09/19 08:16 Lotrimin TOPICAL 1 applic BID DAVID Administration Dextrose 25 ml 10/01/19 21:16 D50w IVP ONCE PRN hypoglycemia prot ocol Protocol Dextrose 50 ml 10/01/19 21:16 D50w IVP PRN PRN hypoglycemia prot ocol Protocol Diltiazem HCl 30 mg 10/04/19 08:30 10/09/19 08:00 Cardizem PO 30 mg Q6H DAVID Administration Enoxaparin Sodium 40 mg 10/06/19 10:15 10/08/19 15:15 Lovenox SUBCUT 40 mg Q24H DAVID Administration Famotidine 20 mg 10/02/19 08:45 10/09/19 08:00 Pepcid Inj IVP 20 mg Q12H DAVID Administration Folic Acid 1 mg 10/02/19 09:00 10/09/19 08:00 Folic Acid PO 1 mg DAILY DAVID Administration Glucagon 1 mg 10/01/19 21:16 Glucagen IM ONCE PRN Adult Acute Hypog lycemia Prot. Protocol Dextrose 500 mls @ 100 mls /hr 10/01/19 21:16 D5w IV ONCE PRN Adult Acute Hypog lycemia Prot Protocol Potassium Chloride /Sodium Chloride 20 meq in 1,000 m ls @ 30 mls/hr 10/03/19 10:00 10/08/19 02:13 Sodium Chlor 0.4 5% +Kcl 20 Meq IV Not Given .Q24H DAVID Clindamycin HCl/De xtrose 900 mg in 50 mls @ 100 mls/hr 10/05/19 08:45 10/09/19 08:11 Cleocin IV 100 mls/hr Q8H DAVID Administration Protocol Vancomycin HCl 1,2 50 mg/ 250 mls @ 200 mls /hr 10/07/19 14:00 10/09/19 04:35 Sodium Chloride IV Infused Q12H DAVID Infusion Protocol As Directed Propofol 1,000 mg in 100 m ls @ 0 mls/hr 10/07/19 09:45 10/07/19 10:08 Diprivan IV 30 mcg/kg/min .Q0M DAVID 19.6 mls/hr Administration Protocol Per Protocol Insulin Aspart 0 unit 10/01/19 21:30 10/09/19 08:15 Novolog SUBCUT 4 unit Q6H DAVID Administration Protocol Lorazepam 2 mg 10/02/19 08:15 Ativan IM Q4H PRN ALCOWD Protocol Lorazepam 2 mg 10/02/19 08:15 10/06/19 01:18 Ativan IVP 2 mg PRN PRN Administration WITHDRAWAL Protocol Lorazepam 2 mg 10/02/19 08:15 10/05/19 16:10 Ativan PO 2 mg Q4H PRN Administration WITHDRAWAL Protocol Metoprolol Tartrat e 5 mg 10/04/19 19:51 10/09/19 01:04 Metoprolol Tartr ate IV 5 mg Q6H PRN Administration HR > 110 as long as SBP >/ 95 Metoprolol Tartrat e 25 mg 10/05/19 18:00 10/09/19 08:00 Lopressor PO 25 mg BID DAVID Administration Morphine Sulfate 2 mg 10/07/19 15:08 Morphine IVP Q4H PRN MILD TO MODERATE PAIN Morphine Sulfate 4 mg 10/07/19 15:08 10/07/19 15:24 Morphine IVP 4 mg Q4H PRN Administration SEVERE PAIN Multivitamins Ther apeutic 1 tab 10/02/19 09:00 10/09/19 08:00 Multivitamin Tab PO 1 tab DAILY DAVID Administration Ondansetron HCl 4 mg 10/01/19 21:06 Zofran IVP Q6H PRN vomiting, or N/V if npo Thiamine Mononitra te 100 mg 10/06/19 09:00 10/09/19 08:00 Vitamin B-1 PO 100 mg DAILY DAVID Administration Penicillins Allergy (Verified 07/11/19 13:11) Unknown Vitals/I&O/Wt Last Vital Signs Temp 98.2 F 10/09/19 10:29 Pulse 98 10/09/19 10:22 Resp 16 10/09/19 10:22 BP 135/92 10/09/19 10:00 Pulse Ox 92 10/09/19 10:22 10/08/19 10/09/19 10/09/19 22:59 06:59 14:59 Intake Total 863 / 1273 350 / 1623 300 / 300 Output Total 1000 / 1020 1200 / 2220 550 / 550 Balance -137 / 253 -850 / -597 -250 / -250 Weight last 48 hrs Weight 115.485 kg Physical Exam Const: COMMON NORMALS: no acute distress and patient oriented x3 GENERAL APPEARANCE: cooperative and comfortable; not ill appearing NUTRITIONAL APPEARANCE: obese morbidly obese ORIENTATION/CONSCIOUSNESS: Yes awake HENMT: COMMON NORMALS: normocephalic, atraumatic, hearing grossly normal bilaterally and moist oral mucous membranes HEAD & SCALP: normocephalic and atraumatic Eye: COMMON NORMALS: Equal, round and reactive pupils present, EOMs intact bilaterally and conjunctivae normal CONJUNCTIVA: Yes conjunctivae normal PUPIL: Yes Equal, round and reactive pupils present Neck/C-Spine: COMMON NORMALS: full ROM GENERAL: Yes normal visual inspection and Yes trachea midline Resp: COMMON NORMALS: normal respiratory effort, No retractions, No use of accessory muscles and clear to auscultation bilaterally EFFORT & INSPECTION: Yes able to speak in complete sentences, Yes symmetric chest movement and No tachypneic AUSCULTATION: clear to auscultation bilaterally Cardio: COMMON NORMALS: regular rate, regular rhythm, S1 normal heart sound present, S2 normal heart sound present and No murmurs present (Cardio) RATE: regular rate and tachycardic (intermittently) RHYTHM: regular rhythm HEART SOUNDS: S1 normal heart sound present and S2 normal heart sound present GI: COMMON NORMALS: Normal to inspection, nondistended, normoactive bowel sounds present, Soft to palpation and non-tender INSPECTION: Yes central obesity PALPATION: Yes Soft to palpation : BLADDER/KIDNEY EXAM: No catheter in place Extremity: COMMON NORMALS: normal to inspection, full ROM, no clubbing, cyanosis or edema and no pedal edema RIGHT UPPER EXTREMITY: Yes shoulder joint Right shoulder: Yes Right shoulder joint inspection exam (no noted erythema), Yes Right shoulder joint ROM exam (decreased) and Yes Right shoulder joint other findings (sutures intact, clean dressing in place) Neuro: COMMON NORMALS: patient oriented x3, moves all extremities, no focal motor deficits and no sensory deficits noted OTHER: -quite weak generally Psych: COMMON NORMALS: mental status grossly normal, Normal thought process present, cooperative, normal affect and speech normal SPEECH: Yes normal speech THOUGHT PROCESS: Normal thought process present Skin: COMMON NORMALS: no rashes or lesions noted, no jaundice, no petechiae and no mottling GENERAL SKIN EXAM: no rashes or lesions noted Urinary Catheter Management^: Benson: Cath Placed During This Visit: yes, but has since been removed by the nurse Reason for Continuing Indwelling Catheter: Accurate Measurement of Urinary Output in Critically Ill Patients Urinary Catheter Date of Insertion: 10/01/19 Urinary Catheter Time of Insertion: 21:28 Date Urinary Catheter Removed: 10/09/19 Time Urinary Catheter Discontinued: 07:50 Data : 10/08/19 04:26 10/09/19 04:28 Micro: Microbiology 10/05/19 13:40 Gram Stain - Final Synovial Fluid Body Fluid Culture - Final 10/07/19 08:41 Gram Stain - Final Synovial Fluid Body Fluid Culture - Preliminary 10/06/19 15:10 Urine Culture - Preliminary Urine,Clean Catch 10/05/19 14:10 Urine Culture - Final Urine,Clean Catch A&P Assessment and plan (1) Streptococcus bovis infection: -4/4 bottles of blood cx (09/30) positive for Strep bovis -with associated sepsis as evidenced by leukocytosis, fever, which has now resolved -subsequent blood cultures negative -continues to be febrile though fever curve is trending down -possibility of OM on CT R shoulder; now s/p diagnostic arthroscopy with minimal debridement and washout. Discussed with Ortho Dr. Barrios and given arthroscopy findings, is unlikely to be OM and no need for MRI currently -continued decrease in CRP (97.3->71.8->54.5) -continue Vanc/Clindamycin (day 5) -no leukocytosis -MARINA negative for vegetations -noted LFTs elevation which has been noted in the past; US abdomen-moderate hepatomegaly and hepatic steatosis; acute hepatitis panel negative -may need colonoscopy to r/o GI source which can be done as outpatient -UA positive for hematuria and bacteria, urine cx negative -PICC line placement today for superintendent container terminal IV antibiotics -no neuro deficits presently, low suspicion for spinal involvement -may benefit from ID f/u Status: Acute (2) Severe sepsis: -as noted above Status: Resolved (3) 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 Barrios on 10/18 -synovial fluid culture prelim negative Status: Chronic (4) Effusion of right shoulder joint: -s/p diagnostic arthroscopy; drain removal on 10/07; suspicion for hemarthrosis as patient on chronic AC -synovial fluid gram stain shows rare WBCs, no organisms; culture prelim negative -Ortho consult by Dr. Barrios appreciated Status: Acute (5) Respiratory failure with hypoxia: -extubated on 10/06 -clinically appears to have COPD, not oxygen dependent at baseline -wean off supplemental oxygen as tolerated; may need home oxygen evaluation prior to d/c -COVID-19 negative Status: Acute Qualifiers: Chronicity: acute Qualified Code(s): J96.01 - Acute respiratory failure with hypoxia (6) COPD (chronic obstructive pulmonary disease): -as noted above Status: Chronic Qualifiers: COPD type: unspecified COPD Qualified Code(s): J44.9 - Chronic obstructive pulmonary disease, unspecified (7) Aortic stenosis: -limited Echo shows EF=55%, previously noted to have moderate Status: Chronic Qualifiers: Cardiac valve disease etiology: etiology unspecified Qualified Code(s): I35.0 - Nonrheumatic aortic (valve) stenosis (8) Atrial fibrillation with RVR: -HR better controlled -on BB, diltiazem; off Cardizem drip -Echo as noted above -telemetry monitoring -Coumadin on hold, INR-1.18 -continue to monitor vital signs Status: Acute (9) Warfarin-induced coagulopathy: -Coumadin held for arthroscopy and MARINA; per discussion with Ortho, would hold off for about 1 week post procedure before resuming therapeutic anticoagulation -INR-1.18 -did require 1 unit of FFPs to reverse coagulopathy Status: Acute (10) Chronic alcohol dependence, continuous: -known EtOH abuse -received banana bag on admission -on MVI, folic acid daily -not actively withdrawing Status: Chronic Additional A&P Information -Obesity: BMI-34 kg/m2 -NIDDM type II; on ISS -Macrocytic anemia; H/H stable, likely secondary to EtOH abuse, vitamin deficiency -Elevated LFTs; noted trend, statin on hold; noted hepatomegaly and steatosis on imaging -low TSH, normal free T4 -Gout -Chronic HFpEF; Echo as noted above, also noted to have moderate pulmonary HTN -on GI soft diet -PT/OT evaluations appreciated; ROM of R shoulder as tolerated without disruption of sutures -GI ppx with Famotidine -DVT ppx with Lovenox -has Benson catheter in place; anticipate removal today -Dispo: SNF, [facility] is first choice -Code status: FULL code Attestations Medical Necessity Statement*: Patient requires hospitalization for continued IV antibiotic therapy and resumption of anticoagulation, pending appropriate disposition. Time Spent in Patient Care: 16 - 35 minutes (>than 50% of time spent in counselling and/or direct pt care on unit). 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
--- NOTE | 2019-10-09 12:25 | XR_ITS ---
WS: [id number] CHEST XRAY TECHNIQUE: Portable chest. CLINICAL INFORMATION: picc placement COMPARISON: None. FINDINGS: Left PICC line with tip in the proximal SVC on the final imaging. No pneumothorax. XR/XR chest 1V portable [id number] IMPRESSION: Left PICC line with tip in the proximal SVC. No pneumothorax.
[2019-10-09] MEDS: sodium chlor 0.45% +KCl 20 mEq 20 MEQ/1,000 ML BAG 30 MEQ IV (13:19)
[2019-10-09] MEDS: enoxaparin 40 mg/0.4 mL Syringe SUBCUT ×2 (13:20→13:30)
[2019-10-09 16:53] LABS: Glucose Point of Care 141 mg/dL (70-110)
[2019-10-09 21:17] LABS: Glucose Point of Care 139 mg/dL (70-110)
[2019-10-10] VITALS (18 sets, daily range): BP systolic 132–168; BP diastolic 74–125; PULSE 76–115; RESP 14–35; TEMP 36.6–37.1; O2SAT 92–95
[2019-10-10] MEDS: clindamycin 900 MG/50 ML PREMIX 100 MG IV ×3 (01:34→16:01)
[2019-10-10] MEDS: dilTIAZem 30 mg Tablet PO ×3 (01:34→08:41)
[2019-10-10] MEDS: sodium chlor 0.45% +KCl 20 mEq 20 MEQ/1,000 ML BAG 30 MEQ IV (03:53)
[2019-10-10 05:33] LABS: Basophils % 0.4 %; Eosinophils # 0.1 10^3/uL (0.0-0.8); Eosinophils % 1.8 %; Hematocrit 31.3 % (42.0-52.0); Hemoglobin 10.2 g/dL (11.7-16.6); Lymphocytes # 1.3 10^3/uL (0.8-4.8); Lymphocytes % 16.2 %; Mean Corpuscular HGB Conc 32.6 g/dL (30.0-36.0); Mean Corpuscular Hemoglobin 33.6 pg (28.0-34.0); Mean Platelet Volume 10.1 fL (7.4-10.4); Monocytes # 1.1 10^3/uL (0.2-0.9); Monocytes % 13.5 %; Neutrophils # 5.4 10^3/uL (1.8-7.7); Nucleated Red Blood Cells % 0 %; Platelet Count 319 10^3/cmm (130-400); Red Blood Count 3.04 10^6/uL (4.1-5.3); Red Cell Distribution Width 14.3 % (12.1-15.1)
[2019-10-10 05:52] LABS: Alanine Aminotransferase 96 U/L (0-41); Albumin Level 2.4 g/dL (3.5-5.2); Alkaline Phosphatase 314 IU/L (40-130); Anion Gap 12.7 (5-19); Aspartate Amino Transferase 81 U/L (0-40); Blood Urea Nitrogen 7 mg/dL (8-23); Calcium 8.4 mg/dL (8.5-10.5); Carbon Dioxide 27 mmol/L (22-29); Chloride 99 mmol/L (98-107); Globulin 3.7 g/dL (1.3-4.6); Glucose 147 mg/dL (65-115); Osmolality Calculated 279 mOsm/kg (285-295); Potassium 3.7 mmol/L (3.5-5.1); Sodium 135 mmol/L (136-145); Total Bilirubin 0.8 mg/dL (0.15-1.2); Total Protein 6.1 g/dL (6.6-8.7)
[2019-10-10 05:55] LABS: C Reactive Protein 55.8 mg/L (0.0-4.9)
[2019-10-10 06:17] LABS: Erythrocyte Sedimentation Rate 106 mm/hr (0-10)
[2019-10-10 07:28] LABS: Glucose Point of Care 147 mg/dL (70-110)
[2019-10-10] MEDS: famotidine 20 mg/2 mL INJ IVP (08:03)
--- NOTE | 2019-10-10 08:06 | P.PN_ITS ---
Subjective Subjective: Interval history: Patient was quite hypertensive overnight so will increase antihypertensive regimen. A.m. labs noted with stable hemoglobin, stable ESR and CRP, decreasing LFTs. Had 2375 mL urine output overnight. He is POD #3 s/p diagnostic arthroscopy with debridement and washout. Synovial fluid culture remains prelim negative, anaerobic culture is also prelim negative. Remains afebrile. Medications: Reviewed: Yes Medication Review Details: Active Medications Generic Name Dose Route Start Last Admin Trade Name Freq PRN Reason Stop Dose Admin Acetaminophen 650 mg 10/03/19 21:41 10/09/19 02:24 Tylenol PO 650 mg Q6H PRN Administration FEVER Albuterol/Ipratrop ium 3 ml 10/01/19 21:16 10/06/19 02:56 Duoneb INHALATION 3 ml Q6H.RESPIRATORY P RN Administration SHORTNESS OF RAMAN TH Aspirin 81 mg 10/06/19 09:00 10/09/19 08:00 Aspirin Ec PO 81 mg DAILY DAVID Administration Clotrimazole 1 applic 10/06/19 18:00 10/09/19 17:19 Lotrimin TOPICAL Not Given BID DAVID Dextrose 25 ml 10/01/19 21:16 D50w IVP ONCE PRN hypoglycemia prot ocol Protocol Dextrose 50 ml 10/01/19 21:16 D50w IVP PRN PRN hypoglycemia prot ocol Protocol Diltiazem HCl 60 mg 10/10/19 08:09 Cardizem PO Q6H DAVID Enoxaparin Sodium 40 mg 10/06/19 10:15 10/09/19 13:30 Lovenox SUBCUT 40 mg Q24H DAVID Administration Famotidine 20 mg 10/10/19 09:00 Pepcid Tab PO BID DAVID Folic Acid 1 mg 10/02/19 09:00 10/09/19 08:00 Folic Acid PO 1 mg DAILY DAVID Administration Glucagon 1 mg 10/01/19 21:16 Glucagen IM ONCE PRN Adult Acute Hypog lycemia Prot. Protocol Dextrose 500 mls @ 100 mls /hr 10/01/19 21:16 D5w IV ONCE PRN Adult Acute Hypog lycemia Prot Protocol Clindamycin HCl/De xtrose 900 mg in 50 mls @ 100 mls/hr 10/05/19 08:45 10/10/19 06:57 Cleocin IV Infused Q8H DAVID Infusion Protocol Vancomycin HCl 1,2 50 mg/ 250 mls @ 200 mls /hr 10/07/19 14:00 10/10/19 06:59 Sodium Chloride IV Infused Q12H DAVID Infusion Protocol As Directed Insulin Aspart 0 unit 10/09/19 18:00 10/10/19 08:03 Novolog SUBCUT 2 unit WM&BEDTIME ADVID Administration Protocol Lisinopril 10 mg 10/10/19 09:00 Prinivil PO DAILY DAVID Lorazepam 2 mg 10/02/19 08:15 Ativan IM Q4H PRN ALCOWD Protocol Lorazepam 2 mg 10/02/19 08:15 10/06/19 01:18 Ativan IVP 2 mg PRN PRN Administration WITHDRAWAL Protocol Lorazepam 2 mg 10/02/19 08:15 10/05/19 16:10 Ativan PO 2 mg Q4H PRN Administration WITHDRAWAL Protocol Metoprolol Tartrat e 5 mg 10/04/19 19:51 10/09/19 01:04 Metoprolol Tartr ate IV 5 mg Q6H PRN Administration HR > 110 as long as SBP >/ 95 Metoprolol Tartrat e 25 mg 10/05/19 18:00 10/09/19 17:13 Lopressor PO 25 mg BID DAVID Administration Morphine Sulfate 2 mg 10/07/19 15:08 Morphine IVP Q4H PRN MILD TO MODERATE PAIN Multivitamins Ther apeutic 1 tab 10/02/19 09:00 10/09/19 08:00 Multivitamin Tab PO 1 tab DAILY DAVID Administration Ondansetron HCl 4 mg 10/01/19 21:06 Zofran IVP Q6H PRN vomiting, or N/V if npo Thiamine Mononitra te 100 mg 10/06/19 09:00 10/09/19 08:00 Vitamin B-1 PO 100 mg DAILY DAVID Administration Penicillins Allergy (Verified 07/11/19 13:11) Unknown Vitals/I&O/Wt Last Vital Signs Temp 98.4 F 10/10/19 04:00 Pulse 113 H 10/10/19 07:00 Resp 24 H 10/10/19 07:00 BP 159/106 10/10/19 07:00 Pulse Ox 93 10/10/19 05:00 10/09/19 10/10/19 10/10/19 22:59 06:59 14:59 Intake Total 450 / 2200 737 / 2937 Output Total 1100 / 1650 1475 / 3125 300 / 300 Balance -650 / 550 -738 / -188 -300 / -300 Weight last 48 hrs Weight 112.491 kg Weight 115.485 kg Physical Exam Const: COMMON NORMALS: no acute distress and patient oriented x3 GENERAL APPEARANCE: cooperative and comfortable; not ill appearing NUTRITIONAL APPEARANCE: obese morbidly obese ORIENTATION/CONSCIOUSNESS: Yes awake HENMT: COMMON NORMALS: normocephalic, atraumatic, hearing grossly normal bilaterally and moist oral mucous membranes HEAD & SCALP: normocephalic and atraumatic Eye: COMMON NORMALS: Equal, round and reactive pupils present, EOMs intact bilaterally and conjunctivae normal CONJUNCTIVA: Yes conjunctivae normal PUPIL: Yes Equal, round and reactive pupils present Neck/C-Spine: COMMON NORMALS: full ROM GENERAL: Yes normal visual inspection and Yes trachea midline Resp: COMMON NORMALS: normal respiratory effort, No retractions, No use of accessory muscles and clear to auscultation bilaterally EFFORT & INSPECTION: Yes able to speak in complete sentences, Yes symmetric chest movement and No tachypneic AUSCULTATION: clear to auscultation bilaterally Cardio: COMMON NORMALS: regular rate, regular rhythm, S1 normal heart sound present, S2 normal heart sound present and No murmurs present (Cardio) RATE: regular rate and tachycardic (intermittently) RHYTHM: regular rhythm HEART SOUNDS: S1 normal heart sound present and S2 normal heart sound present GI: COMMON NORMALS: Normal to inspection, nondistended, normoactive bowel sounds present, Soft to palpation and non-tender INSPECTION: Yes central obesity PALPATION: Yes Soft to palpation : BLADDER/KIDNEY EXAM: No catheter in place Extremity: COMMON NORMALS: normal to inspection, full ROM, no clubbing, cyanosis or edema and no pedal edema Neuro: COMMON NORMALS: patient oriented x3, moves all extremities, no focal motor deficits and no sensory deficits noted OTHER: -quite weak generally Psych: COMMON NORMALS: mental status grossly normal, Normal thought process present, cooperative, normal affect and speech normal SPEECH: Yes normal speech THOUGHT PROCESS: Normal thought process present Skin: COMMON NORMALS: no rashes or lesions noted, no jaundice, no petechiae and no mottling GENERAL SKIN EXAM: no rashes or lesions noted Urinary Catheter Management^: Benson: Cath Placed During This Visit: yes, but has since been removed by the nurse Reason for Continuing Indwelling Catheter: Accurate Measurement of Urinary Output in Critically Ill Patients Urinary Catheter Date of Insertion: 10/01/19 Urinary Catheter Time of Insertion: 21:28 Date Urinary Catheter Removed: 10/09/19 Time Urinary Catheter Discontinued: 07:50 Data : 10/10/19 05:10 10/10/19 05:10 Micro: Microbiology 10/07/19 08:41 Anaerobic Culture - Preliminary Synovial Fluid 10/06/19 15:10 Urine Culture - Final Urine,Clean Catch 10/07/19 08:41 Gram Stain - Final Synovial Fluid Body Fluid Culture - Preliminary A&P Assessment and plan (1) Streptococcus bovis infection: -4/4 bottles of blood cx (09/30) positive for Strep bovis -with associated sepsis as evidenced by leukocytosis, fever, which has now re solved -subsequent blood cultures negative -continues to be febrile though fever curve is trending down -possibility of OM on CT R shoulder; now s/p diagnostic arthroscopy with minimal debridement and washout. Discussed with Ortho Dr. Barrios and given arthroscopy findings, is unlikely to be OM and no need for MRI currently -continued decrease in CRP (97.3--->55.8) -continue Vanc/Clindamycin (day 6); given bacteremia and joint involvement as well as severe sepsis on presentation, anticipate need for at least 2-4 weeks of dual IV antibiotics from date of first negative blood cx. 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 Barrios on 10/18 -synovial fluid culture prelim negative, anaerobic culture prelim negative Status: Chronic (4) Effusion of right shoulder joint: -s/p diagnostic arthroscopy; drain removal on 10/07; suspicion for hemarthrosis as patient on chronic AC so continuing to hold AC -synovial fluid gram stain shows rare WBCs, no organisms; culture prelim negative -Ortho consult by Dr. Barrios appreciated Status: Acute (5) Respiratory failure with hypoxia: -extubated on 10/06 -clinically appears to have COPD, not oxygen dependent at baseline -has been weaned off supplemental oxygen as tolerated; may need home oxygen evaluation prior to d/c -COVID-19 negative Status: Acute Qualifiers: Chronicity: acute Qualified Code(s): J96.01 - Acute respiratory failure with hypoxia (6) COPD (chronic obstructive pulmonary disease): -as noted above Status: Chronic Qualifiers: COPD type: unspecified COPD Qualified Code(s): J44.9 - Chronic obstructive pulmonary disease, unspecified (7) Aortic stenosis: -limited Echo shows EF=55%, previously noted to have moderate Status: Chronic Qualifiers: Cardiac valve disease etiology: etiology unspecified Qualified Code(s): I35.0 - Nonrheumatic aortic (valve) stenosis (8) Atrial fibrillation with RVR: -HR better controlled -on BB, diltiazem; off Cardizem drip -Echo as noted above -telemetry monitoring -Coumadin on hold, INR-1.18 -continue to monitor vital signs Status: Acute (9) Warfarin-induced coagulopathy: -Coumadin held for arthroscopy and MARINA; per discussion with Ortho, would hold off for about 1 week post procedure before resuming therapeutic anticoagulation -INR-1.18 -did require 1 unit of FFPs to reverse coagulopathy Status: Acute (10) Chronic alcohol dependence, continuous: -known EtOH abuse -received banana bag on admission -on MVI, folic acid daily -not actively withdrawing, CIWA protocol Status: Chronic (11) Hypertension: -noted upward trend in BP, is on BB, will increase cardizem (he is on 240 mg at home), add lisinopril for more optimal BP control -continue to monitor vital signs Status: Chronic Qualifiers: Hypertension type: essential hypertension Qualified Code(s): I10 - Essential (primary) hypertension Additional A&P Information -Obesity: BMI-33 kg/m2 -NIDDM type II; on ISS -Macrocytic anemia; H/H stable, likely secondary to EtOH abuse, vitamin deficiency -Elevated LFTs; noted downward trend, statin on hold; noted hepatomegaly and huyen atosis on imaging -low TSH, normal free T4 -Gout -Chronic HFpEF; Echo as noted above, also noted to have moderate pulmonary HTN -on GI soft diet -PT/OT evaluations appreciated; ROM of R shoulder as tolerated without disruption of sutures -GI ppx with Famotidine -DVT ppx with Lovenox -Benson catheter removed (10/08), has been voiding independently without difficulty -Dispo: [facility] -Code status: FULL code Attestations Medical Necessity Statement*: Discharge to SNF today Time Spent in Patient Care: 16 - 35 minutes (>than 50% of time spent in counselling and/or direct pt care on unit) . 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
[2019-10-10] MEDS: metoprolol tartrate 25 mg Tablet PO ×2 (08:31→17:24)
[2019-10-10] MEDS: multivitamin therapeutic Tablet 1 TAB PO (08:31)
[2019-10-10] MEDS: lisinopril 10 mg Tablet PO (08:31)
[2019-10-10] MEDS: aspirin 81 mg EC Tablet PO (08:31)
[2019-10-10] MEDS: thiamine 100 mg Tablet PO (08:31)
[2019-10-10] MEDS: folic acid 1 mg Tablet PO (08:32)
[2019-10-10] MEDS: clotrimazole 1% cream 30 gm 1 APPLIC TOPICAL (08:41)
[2019-10-10 11:43] LABS: Glucose Point of Care 146 mg/dL (70-110)
[2019-10-10] MEDS: enoxaparin 40 mg/0.4 mL Syringe SUBCUT (14:08)
[2019-10-10] MEDS: dilTIAZem 60 mg Tablet PO (14:08)
--- NOTE | 2019-10-10 15:48 | P.DS_ITS ---
Discharge Providers Date of Admission: 10/01/19 20:34 Date of Discharge: October 10, 2019 Attending Provider at Admission: Gavin Lyons Attending Provider at Discharge: Nereyda Morgan MD Diagnoses at Discharge Discharge Diagnosis (1) Streptococcus bovis infection: Status: Acute Problem details: -4/4 bottles of blood cx (09/30) positive for Strep bovis -with associated sepsis as evidenced by leukocytosis, fever, which has now resolved -subsequent blood cultures negative -continues to be febrile though fever curve is trending down -possibility of OM on CT R shoulder; now s/p diagnostic arthroscopy with minimal debridement and washout. Discussed with Ortho Dr. Barrios and given arthroscopy findings, is unlikely to be OM and no need for MRI currently -continued decrease in CRP (97.3--->55.8) -continue Vanc/Clindamycin (day 6); given bacteremia and joint involvement as well as severe sepsis on presentation, anticipate need for at least 2-4 weeks of dual IV antibiotics from date of first negative blood cx. 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 Barrios on 10/18 -synovial fluid culture prelim negative, anaerobic culture prelim negative (4) Effusion of right shoulder joint: Status: Acute Problem details: -s/p diagnostic arthroscopy; drain removal on 10/07; suspicion for hemarthrosis as patient on chronic AC so continuing to hold AC -synovial fluid gram stain shows rare WBCs, no organisms; culture prelim negative -Ortho consult by Dr. Barrios appreciated (5) Respiratory failure with hypoxia: Status: Acute Problem details: -extubated on 10/06 -clinically appears to have COPD, not oxygen dependent at baseline -has been weaned off supplemental oxygen as tolerated; may need home oxygen evaluation prior to d/c -COVID-19 negative Qualifiers: Chronicity: acute Qualified Code(s): J96.01 - Acute respiratory failure with hypoxia (6) COPD (chronic obstructive pulmonary disease): Status: Chronic Qualifiers: COPD type: unspecified COPD Qualified Code(s): J44.9 - Chronic obstr uctive pulmonary disease, unspecified (7) Aortic stenosis: Status: Chronic Problem details: Echocardiogram June 2019 showed valve area of 1.8 cm? with a mean gradient of 9 mmHg, described as moderate stenosis Qualifiers: Cardiac valve disease etiology: etiology unspecified Qualified Code(s): I35.0 - Nonrheumatic aortic (valve) stenosis (8) Atrial fibrillation with RVR: Status: Acute Problem details: -HR better controlled -on BB, diltiazem; off Cardizem drip -Echo as noted above -telemetry monitoring -Coumadin on hold, INR-1.18 -continue to monitor vital signs (9) Warfarin-induced coagulopathy: Status: Acute Problem details: -Coumadin held for arthroscopy and MARINA; per discussion with Ortho, would hold off for about 1 week post procedure before resuming therapeutic anticoagulation -INR-1.18 -did require 1 unit of FFPs to reverse coagulopathy (10) Chronic alcohol dependence, continuous: Status: Chronic Problem details: -known EtOH abuse -received banana bag on admission -on MVI, folic acid daily -not actively withdrawing, CIWA protocol (11) Hypertension: Status: Chronic Problem details: -noted upward trend in BP, is on BB, will increase cardizem (he is on 240 mg at home), add lisinopril for more optimal BP control -continue to monitor vital signs Qualifiers: Hypertension type: essential hypertension Qualified Code(s): I10 - Essential (primary) hypertension Other Information Additional DC diagnoses/information: -Obesity: BMI-33 kg/m2 -NIDDM type II; on ISS -Macrocytic anemia; H/H stable, likely secondary to EtOH abuse, vitamin deficiency -Elevated LFTs; noted downward trend, statin on hold; noted hepatomegaly and steatosis on imaging -low TSH, normal free T4 -Gout -Chronic HFpEF; Echo as noted above, also noted to have moderate pulmonary HTN Reason for Visit Reason for Visit: Reason For Visit: AMS/Afib with RVR Hospital Course Hospital Course: Patient has had a fairly complicated hospital course. Initially admitted to ICU due to noted altered mental status with severe sepsis as evidenced by fever, leukocytosis, tachycardia. Initial source was presumed to be pneumonia and further work-up, specifically lumbar puncture was limited by the fact that patient had noted coumadin induced coagulopathy. He was tested for COVID-19 and this was found to be negative. On the second day of admission his respiratory status rapidly decompensated and he was placed on mechanical ventilation at which point his IV antibiotic regimen was broadened to provide better coverage. He developed A. fib with RVR necessitating initiation of a Cardizem drip. His initial set of blood cultures grew Streptococcus bovis in 4 out of 4 bottles with repeat set subsequently ordered. At this point source of bacteremia was unclear. Lumbar puncture was considered but not done as once patient was extubated he did not display neurological deficits and he was anticoagulated. He did receive 1 unit of FFP's to reverse coagulopathy. MARINA was done which ruled out vegetation. He has had extensive imaging including CT head, CT of the abdomen and pelvis, abdominal ultrasound. At this point he was noted to have clinical findings suspicious for right shoulder joint effusion which was subsequently evidenced on imaging. Orthopedics was consulted and Dr. Barrios was gracious enough to see the patient. There was some concern for possible osteomyelitis on CT scan of the right shoulder and in light of bacteremia and concern for possible septic arthritis, patient had arthroscopy done with minimal debridement and irrigation with a drain left in place. Drain was subsequently removed on post-op day #1 with Gram stain noted to be negative, prelim synovial fluid culture and anaerobic culture showing no growth so far. Subsequent repeat blood cultures have been persistently negative. He has been maintained on dual antibiotic treatment with IV clindamycin and vancomycin to provide adequate coverage for septic arthritis and bacteremia. In light of negative work-up so far patient would need further evaluation with colonoscopy to rule out GI source of bacteremia. This has been discussed and he will need to be referred to have procedure done. He will benefit from infectious disease follow-up and has been referred accordingly. He will continue IV antibiotic treatment for at least 4 weeks and PICC line has been placed for this purpose. He will remain off anticoagulation given complicated hospital course and aforementioned procedure. Following arthroscopy patient has done well with gradual increase in range of motion as tolerated. He does have sutures in place which will be removed by Dr. Barrios on his follow-up appointment. Possible seeding into spine was considered in differential but patient has consistently not displayed neurological deficits that would indicate this. There was also discussion about possible MRI for further imaging of the right shoulder in light of concern for osteomyelitis on CT scan. Given arthroscopy and further discussion with orthopedics there is no need for this at this time. However if patient does not improve with continued IV antibiotic treatment this may be considered. Benson catheter has since been removed and he has been able to void independently. Patient does have a history of alcohol abuse and was maintained on CIWA protocol during his hospitalization. Due to need for continued longer term IV antibiotic therapy he will need weekly CBC, BMP, as well as weekly Vanco troughs. PICC line is to remain in place until completion of antibiotic treatment. He will need to follow-up with orthopedics before decision can be made on resumption of therapeutic anticoagulation. He has been taking Coumadin due to history of chronic atrial fibrillation. With this being held at this point there is a risk of stroke though in light of clinical status benefit of withholding anticoagulation outweighs the risk. Because patient has had a prolonged and complicated hospital course he has been quite deconditioned physically. He has been evaluated by physical therapy and in light of his deconditioning as well as need for IV antibiotic treatment, SNF is the most appropriate disposition which patient has agreed to. He will be discharged to [facility] for continued therapy and antibiotic treatment. Range of motion of right shoulder is encouraged with care given to avoid disruption of sutures. Discharge Summary: -Patient to follow-up with primary care physician within 1 week. He will need referral to surgery to arrange for colonoscopy in light of noted Streptococcus bovis bacteremia to evaluate for possible GI source. -Patient to follow-up with LORENZO Feliciano as soon as next available appointment -Patient to follow-up with Dr. Barrios as scheduled for follow-up on right rotator cuff arthropathy with septic arthritis Physical Exam Const: COMMON NORMALS: no acute distress and patient oriented x3 GENERAL APPEARANCE: cooperative and comfortable; not ill appearing NUTRITIONAL APPEARANCE: obese morbidly obese ORIENTATION /CONSCIOUSNESS: Yes awake HENMT: COMMON NORMALS: normocephalic, atraumatic, hearing grossly normal bilaterally and moist oral mucous membranes HEAD & SCALP: normocephalic and atraumatic Eye: COMMON NORMALS: Equal, round and reactive pupils present, EOMs intact bilaterally and conjunctivae normal CONJUNCTIVA: Yes conjunctivae normal PUPIL: Yes Equal, round and reactive pupils present Neck/C-Spine: COMMON NORMALS: full ROM GENERAL: Yes normal visual inspection and Yes trachea midline Resp: COMMON NORMALS: normal respiratory effort, No retractions, No use of accessory muscles and clear to auscultation bilaterally EFFORT & INSPECTION: Yes able to speak in complete sentences, Yes symmetric chest movement and No tachypneic AUSCULTATION: clear to auscultation bilaterally Cardio: COMMON NORMALS: regular rate, regular rhythm, S1 normal heart sound present, S2 normal heart sound present and No murmurs present (Cardio) RATE: regular rate and tachycardic (intermittently) RHYTHM: regular rhythm HEART SOUNDS: S1 normal heart sound present and S2 normal heart sound present GI: COMMON NORMALS: Normal to inspection, nondistended, normoactive bowel sounds present, Soft to palpation and non-tender INSPECTION: Yes central obesity PALPATION: Yes Soft to palpation : BLADDER/KIDNEY EXAM: No catheter in place Extremity: COMMON NORMALS: normal to inspection, full ROM, no clubbing, cyanosis or edema and no pedal edema RIGHT UPPER EXTREMITY: Yes shoulder joint Right shoulder: Yes Right shoulder joint inspection exam (sutures intact; no erythema), Yes Right shoulder joint ROM exam (decreased), Yes Right shoulder joint neurovascular exam (intact) and Yes Right shoulder joint other findings (no noted fluctuance) Neuro: COMMON NORMALS: patient oriented x3, moves all extremities, no focal motor deficits and no sensory deficits noted OTHER: -quite weak generally Psych: COMMON NORMALS: mental status grossly normal, Normal thought process present, cooperative, normal affect and speech normal SPEECH: Yes normal spe ech THOUGHT PROCESS: Normal thought process present Skin: COMMON NORMALS: no rashes or lesions noted, no jaundice, no petechiae and no mottling GENERAL SKIN EXAM: no rashes or lesions noted Urinary Catheter Management^: Benson: Cath Placed During This Visit: yes, but has since been removed by the nurse Reason for Continuing Indwelling Catheter: Accurate Measurement of Urinary Output in Critically Ill Patients Urinary Catheter Date of Insertion: 10/01/19 Urinary Catheter Time of Insertion: 21:28 Date Urinary Catheter Removed: 10/09/19 Time Urinary Catheter Discontinued: 07:50 Discharge Data Data Completed and Pending: Completed Studies During Hospitalization Category Date Time Status CT angio abdomen pelvis 98085 Urgen t Cat Scan 10/01/19 18:[address] chest w con* 7 1260 Routine Cat Scan 10/06/19 09:[address] head wo con* 7 0450 Urgent Cat Scan 10/01/19 17:[address] shoulder RT w con [id number] Routine Cat Scan 10/06/19 09:43 Completed XR KUB portable 7 4018 Urgent Exams 10/02/19 19:47 Completed XR chest 1V radha ble [id number] Routine Exams 10/03/19 06:00 Completed XR chest 1V radha ble [id number] Routine Exams 10/04/19 08:29 Completed XR chest 1V radha ble [id number] Routine Exams 10/09/19 12:25 Completed XR chest 1V radha ble 32565 Stat Exams 10/01/19 17:57 Completed XR chest 1V radha ble 62727 Stat Exams 10/02/19 13:00 Completed CV echo limited 9 3308 Routine Ultrasound 10/05/19 09:14 Completed CV echo transesop hageal 02518 Routi ne Ultrasound 10/07/19 10:57 Completed US abdomen limite d 74188 Routine Ultrasound 10/03/19 07:00 Completed US guide needle p lacemt 14312 Routi ne Ultrasound 10/05/19 11:53 Completed US soft tissue/ex tremity 01392 Stat Ultrasound 10/05/19 09:01 Completed Pending at discharge Category Date Time Status ES surgery / GI i mages Routine Exams 10/07/19 07:16 Taken Anaerobic Culture Routine Lab 10/07/19 08:41 Results Blood Culture Sta t Lab 10/06/19 11:21 Results Labs from last 24 hours 10/10/19 10/10/19 10/10/19 11:40 07:23 05:10 WBC RBC Hgb Hct MCV MCH MCHC RDW Plt Count MPV Neut % (Auto) Lymph % (Auto) [place] % (Auto) Eos % (Auto) Baso % (Auto) Neut # (Auto) Lymph # (Auto) [place] # (Auto) Eos # (Auto) Baso # (Auto) Nucleated RBC % (a uto) Nucleated RBCs # ESR Sodium 135 L Potassium 3.7 Chloride 99 Carbon Dioxide 27 Anion Gap 12.7 BUN 7 L Creatinine 0.5 L Glucose 147 H POC Glucose 146 147 Calculated Osmolal ity 279 L Calcium 8.4 L Total Bilirubin 0.8 AST 81 H ALT 96 H Alkaline Phosphata se 314 H C-Reactive Protein Total Protein 6.1 L Albumin 2.4 L Globulin 3.7 10/10/19 10/10/19 10/10/19 05:10 05:10 05:10 WBC 8.0 RBC 3.04 L Hgb 10.2 L Hct 31.3 L MCV 103.0 H MCH 33.6 MCHC 32.6 RDW 14.3 Plt Count 319 MPV 10.1 Neut % (Auto) 67.0 Lymph % (Auto) 16.2 [place] % (Auto) 13.5 Eos % (Auto) 1.8 Baso % (Auto) 0.4 Neut # (Auto) 5.4 Lymph # (Auto) 1.3 [place] # (Auto) 1.1 H Eos # (Auto) 0.1 Baso # (Auto) 0.0 Nucleated RBC % (a uto) 0 Nucleated RBCs # 0.0 ESR 106 H Sodium Potassium Chloride Carbon Dioxide Anion Gap BUN Creatinine Glucose POC Glucose Calculated Osmolal ity Calcium Total Bilirubin AST ALT Alkaline Phosphata se C-Reactive Protein 55.8 H Total Protein Albumin Globulin 10/09/19 10/09/19 21:11 16:48 WBC RBC Hgb Hct MCV MCH MCHC RDW Plt Count MPV Neut % (Auto) Lymph % (Auto) [place] % (Auto) Eos % (Auto) Baso % (Auto) Neut # (Auto) Lymph # (Auto) [place] # (Auto) Eos # (Auto) Baso # (Auto) Nucleated RBC % (a uto) Nucleated RBCs # ESR Sodium Potassium Chloride Carbon Dioxide Anion Gap BUN Creatinine Glucose POC Glucose 139 141 Calculated Osmolal ity Calcium Total Bilirubin AST ALT Alkaline Phosphata se C-Reactive Protein Total Protein Albumin Globulin Vitals: Last Vital Signs Temp 98.5 F 10/10/19 12:00 Pulse 87 10/10/19 14:00 Resp 32 H 10/10/19 14:00 BP 142/83 10/10/19 14:00 Pulse Ox 94 10/10/19 14:00 Discharge Plan Discharge Patient Disposition: Xfer SNF Condition: Stable Prescriptions: New aspirin 81 mg Tablet,Delayed Release (Dr/Ec) 81 mg PO DAILY 30 Days Qty: 30 RF: 0 lisinopril 10 mg Tablet 10 mg PO DAILY 30 Days Qty: 30 RF: 0 Vitamin B-1 (mononitrate) 100 mg Tablet 100 mg PO DAILY Qty: 30 RF: 0 vancomycin 1.25 gram recon soln 1.25 gm IVP Q12H Qty: 22 RF: 0 clindamycin phosphate 600 mg/4 mL solution 600 mg IVP Q8H 22 Days Qty: 264 RF: 0 Lactobacillus acidophilus Tablet,Chewable 1 tab PO BID Qty: 60 RF: 0 clotrimazole 1 % Cream 1 applic topical BID Qty: 30 RF: 0 Continued Multiple Vitamins Tablet 1 tab PO DAILY 30 Days Qty: 30 RF: 0 senna 8.6 mg Tablet 17.2 mg PO BID 30 Days Qty: 120 RF: 0 Toprol XL 50 mg tablet extended release 24 hr 50 mg PO DAILY 30 Days Qty: 30 RF: 0 sertraline 100 mg Tablet 150 mg PO DAILY 30 Days Qty: 30 RF: 0 diltiazem HCl 240 mg Capsule,Extended Release 24 Hr 240 mg PO QAM Qty: 30 RF: 0 Melatin 3 mg Tablet 3 mg PO BIDPC Qty: 30 RF: 0 allopurinol 100 mg Tablet 100 mg PO DAILY 30 Days Qty: 30 RF: 0 Acetaminophen Extra Strength 500 mg Tablet 500 - 1,000 mg PO QID PRN (Reason: Pain) Qty: 30 RF: 0 Flomax 0.4 mg Capsule 0.4 mg PO QPM 30 Days Qty: 30 RF: 0 metformin 1,000 mg Tablet 1,000 mg PO BID 30 Days Qty: 60 RF: 0 ProAir HFA 90 mcg/actuation Hfa Aerosol Inhaler 2 puff INHALATION QID PRN (Reason: Shortness Of Breath) Qty: 1 RF: 0 Symbicort 80-4.5 mcg/actuation Hfa Aerosol Inhaler 2 puff INHALATION BID Qty: 10.2 RF: 0 cholecalciferol (vitamin D3) 50 mcg (2,000 unit) Tablet 50 mcg PO DAILY Qty: 30 RF: 0 Discontinued warfarin 5 mg Tablet See Rx Instructions .ROUTE .COMPLEX RF: 0 colchicine 0.6 mg Tablet 0.6 mg PO PRN PRN (Reason: unknown) RF: 0 atorvastatin [Lipitor] 80 mg Tablet 40 mg PO DAILY RF: 0 alogliptin 25 mg Tablet 25 mg PO DAILY RF: 0 metaxalone [Skelaxin] 800 mg tablet 800 mg PO TID PRN (Reason: muscle pain) Qty: 20 RF: 0 Discharge Orders: Discharge Order (Routine); Ordered 10/10/19 Ordered By: Nereyda Morgan Referrals: Mauro Mckinney [Referring] - 4-7 days (Appointment scheduled for Thursday, October 17, 2019 at 1:00pm. Post hospital discharge follow up. Treated for right shoulder septic arthritis and Streptococcus bovis bacteremia with 4-week course of IV vancomycin and clindamycin) Faye Feliciano MD [Hospitalist] - 7-10 days (Patient to schedule an appointment. For infectious disease follow up due to hx of strep bovis bacteremia and R shoulder septic arthritis; on IV antibiotics (vanc/clindamycin)) Joo Barrios DO [Physician] - (Appointment scheduled for Saturday, October 19, 2019 at 12:00pm. Follow-up to remove sutures from right shoulder and to review images and findings taken at the time of surgery.) Discharge Diet: Cardiac and Diabetic Discharge Activity: Limit activity as instructed Activity Restrictions/Additional Instructions: use sling on as-needed basis to right shoulder. Do not use of right shoulder as tolerated. He may want to avoid activities at or above shoulder level as this may be uncomfortable. No lifting greater than 5 pounds so as not to disrupt sutures in the 3 incision sites about the right shoulder. May shower May apply antibiotic ointment and a Band-Aid to the incision sites. May perform pendulum exercises range of motion of the elbow forearm wrist and fingers to decrease stiffness. May apply ice to the right shoulder 20 minutes on 20 minutes off to relieve pain. -Patient has PICC line for IV antibiotic administration. This can be discontinued once IV antibiotic treatment course is complete -Patient to have weekly CBC, BMP while on antibiotic treatment -Patient to have once weekly vanc trough checks while on antibiotic treatment. Target trough is 15-20 mcg/mL Discharge Attestations Time Spent in Discharge Care*: greater than 30 min Specific Discharge Activities: Specific discharge activities: educating pat ient, discussing with pcp/other providers, discussing with piano case and bench assembler/social workers/dc planners, documenting/other paperwork and evaluating patient/reviewing data Status at Discharge: Cognitive status at discharge: cognitively intact , Behavioral status at discharge: cooperative , Functional status at discharge: other assisted ambulation (assistance with all out of bed activity) Overall status at discharge: patient is progressing back to baseline Quality Metrics Clinical Quality Measures During this hospital stay, did patient experience: None Coding Level of Care Code Acute 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
--- NOTE | 2019-10-12 09:41 | PC.SOCIAL ---
Post D/C note: Per Stephie Lynn, Veronika from [facility] called inquiring when/where to set up patient's hospital f/u appointment with Dr. Feliciano for infectious disease. Dr. Feliciano was contacted who states that her clinic will not open until November, so she will not be able to see patient in clinic until then. She advises for now, that patient follow up with ortho and PCP and that both of these providers can call her with ID questions if needed. I called Veronika from [facility] back and notified her of the above information. She verbalizes understanding. I asked Veronika to please be sure and note on patient's paperwork when he is discharged from their facility to call Case Management at [facility] to get assistance with scheduling an appointment with Dr. Feliciano for November, as patient will likely not still be in their facility at this time. Veronika states she will.
== END 2019-10-10 17:50 | disposition skilled nursing facility (03) | DRG 853 ==
LOC: ER 20:50 → ICU 23:07
PROVIDERS: Emergency Medicine; Hospitalist; Orthopaedic Surgery; Admitting Provider Internal Medicine; Visit Provider Family Medicine
PROC: 0RJJ4ZZ Inspection of Right Shoulder Joint, Percutaneous Endoscopic Approach (ICD-10-PCS; CPT 29805; principal; 2019-10-07 08:00)
DX: A41.9 Sepsis, unspecified organism (principal); J18.9 Pneumonia, unspecified organism; J96.01 Acute respiratory failure with hypoxia; G93.41 Metabolic encephalopathy; I21.4 Non-ST elevation (NSTEMI) myocardial infarction; J98.11 Atelectasis; J44.0 Chronic obstructive pulmonary disease with (acute) lower respiratory infection; M00.811 Arthritis due to other bacteria, right shoulder; I50.32 Chronic diastolic (congestive) heart failure; I48.20 Chronic atrial fibrillation, unspecified; R65.20 Severe sepsis without septic shock; I71.4 Abdominal aortic aneurysm, without rupture; M25.411 Effusion, right shoulder; Z20.828 Contact with and (suspected) exposure to other viral communicable diseases; F10.20 Alcohol dependence, uncomplicated; Z79.01 Long term (current) use of anticoagulants; I11.0 Hypertensive heart disease with heart failure; M10.9 Gout, unspecified; E66.9 Obesity, unspecified; Z68.33 Body mass index [BMI] 33.0-33.9, adult; D53.9 Nutritional anemia, unspecified; R79.1 Abnormal coagulation profile; T45.515A Adverse effect of anticoagulants, initial encounter; Y92.9 Unspecified place or not applicable; Z79.84 Long term (current) use of oral hypoglycemic drugs; A49.1 Streptococcal infection, unspecified site; I35.0 Nonrheumatic aortic (valve) stenosis; E11.51 Type 2 diabetes mellitus with diabetic peripheral angiopathy without gangrene; R33.9 Retention of urine, unspecified; E11.65 Type 2 diabetes mellitus with hyperglycemia; E88.09 Other disorders of plasma-protein metabolism, not elsewhere classified
CPT/HCPCS: 10030; 12345; 20611; 36415; 36416; 36430; 36569; 36592; 36600; 51702; 70450; 71045; 71260; 73201; 74018; 74174; 76705; 76882; 80048; 80051; 80053; 80202; 80306; 80307; 80500; 81001; 82803; 82810; 82962; 83605; 83690; 83735; 83880; 83986; 84100; 84145; 84439; 84443; 84481; 84484; 84550; 85025; 85610; 85651; 85730; 86140; 86705; 86706; 86709; 86803; 86850; 86900; 86927; 87040; 87070; 87075; 87077; 87086; 87186; 87205; 87340; 87635; 89050; 93005; 93308; 93312; 93320; 93325; 94002; 94003; 94640; 94664; 94799; 96372; 96375; 97110; 97116; 97163; 97166; 97530; 97535; 99284; C1751; J0171; J0330; J0360; J1650; J1815; J1956; J2001; J2060; J2250; J2270; J2370; J2405; J2704; J3010; J3370; J3411; J3430; J3490; J7030; J7040; J7050; P9017; Q9967

== ENCOUNTER → 2019-11-12 09:54 | Day surgery (SDC) | payer OTHER, SELFPAY ==
[2019-11-12 10:31] VITALS: BP 121/89; PULSE 99; RESP 18; TEMP 36.6; O2SAT 96
== END ==
PROVIDERS: Visit Provider Family Medicine
DX: A41.9 Sepsis, unspecified organism (principal)

== ENCOUNTER 2019-12-21 15:13 | Emergency (ER) | payer OTHER, SELFPAY ==
[2019-12-21 15:15] VITALS: BP 142/123; PULSE 82; RESP 18; TEMP 36.7; O2SAT 92; BMI 28.3
[2019-12-21 15:49] VITALS: O2SAT 96
--- NOTE | 2019-12-21 15:51 | XRR_ITS ---
PROCEDURE INFORMATION: Exam: XR Right Ankle Exam date and time: 12/21/2019 4:06 PM Age: 74 years old Clinical indication: Pain; Ankle; Right TECHNIQUE: Imaging protocol: XR Right ankle. Views: 3 or more views. COMPARISON: No relevant prior studies available. FINDINGS: Bones/joints: There is bony remodeling of the tip of the fibula and medial malleolus compatible with old ankle injuries. There are mild degenerative changes in the ankle joint with anterior osteophyte formation of the tibia. There is a small ankle joint effusion. Enthesopathy of the calcaneus is identified at the insertion of the plantar aponeurosis. The talar dome is smooth. The ankle mortise is intact. No acute fracture. No dislocation. Soft tissues: There is soft tissue edema. No foreign body. Other findings: There is no osteochondral defect. XR/XR ankle RT min 3V* [id number] IMPRESSION: 1. No acute bony abnormality. 2. There is soft tissue edema.
--- NOTE | 2019-12-21 15:53 | W.ED.EXTPRO ---
HPI - Extremity Problem General: Chief complaint: Extremity Injury, Lower Stated complaint: [facility] Time Seen by Provider: 12/21/19 15:17 History of Present Illness: HPI Narrative: 74 yo male presents with right foot drop. He has had this for about 6 or 7 weeks he was hospitalized recently for sepsis from UTI and had to go to a retirement for recovery after that. He cannot recall any specific injury to his back is not previously had severe back problems. He gave him an ankle brace at the [facility] today and advised him he needed back x-rays not twice presenting to the emergency room he denies any other problem any fever sweats chills respiratory issues GI or U problems. He demonstrates a significant foot drop at the bedside but denies any weakness in the remainder of the leg at this time. Associated symptoms: Deny chest pain, fever(s) or rash Review of Systems Const: Denies: fever(s), chills, body aches, change in appetite, fatigue or malaise ENMT: Denies: throat pain, ear or mastoid pain, nasal discharge or nasal congestion Card: Denies: chest pain, edema, dyspnea on exertion or orthopnea Resp: Denies: dyspnea, productive cough or non-productive cough GI: Denies: abdominal pain, nausea, vomiting, hematemesis, coffee ground emesis, diarrhea, constipation, bloating, hematochezia or melena : Denies: flank pain, dysuria, urinary frequency or urinary urgency Skin/Breast: Denies: rash or pruritus Neuro: Reports: difficulty walking, frequent falls and other (Loss of sensation in the great toe of the left foot) PFS ED PFSH: Medical History Abdominal aortic aneurysm Aortic stenosis Echocardiogram June 2019 showed valve area of 1.8 cm? 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 Barrios on 10/18 -synovial fluid culture prelim negative, anaerobic culture prelim negative Surgical History History of herniorrhaphy History of orthopedic surgery Right shoulder Hx of cholecystectomy Family History Father CAD (coronary artery disease) Social History Smoking and tobacco status: former smoker Alcohol intake: current Alcohol intake frequency: few times a week Physical Exam Const: COMMON NORMALS: no acute distress GENERAL APPEARANCE: cooperative and comfortable ORIENTATION/CONSCIOUSNESS: Yes awake, Yes oriented to person, Yes oriented to place and Yes oriented to time HENMT: COMMON NORMALS: normocephalic and atraumatic HEAD & SCALP: normocephalic and atraumatic Eye: COMMON NORMALS: Equal, round and reactive pupils present, EOMs intact bilaterally, conjunctivae normal and no scleral icterus CONJUNCTIVA: Yes conjunctivae normal PUPIL: Yes Equal, round and reactive pupils present Neck/C-Spine: COMMON NORMALS: full ROM, no lymphadenopathy, supple and no JVD Lymph: LYMPHATIC: no lymphadenopathy noted and no lymphedema noted Resp: COMMON NORMALS: normal respiratory effort, No retractions, No use of accessory muscles and clear to auscultation bilaterally AUSCULTATION: clear to auscultation bilaterally Cardio: COMMON NORMALS: no JVD, regular rate, regular rhythm and No murmurs present (Cardio) RATE: regular rate RHYTHM: regular rhythm GI: COMMON NORMALS: Soft to palpation and No hepatosplenomegaly present AUSCULTATION: Yes normoactive bowel sounds PALPATION: Yes Soft to palpation, No Tenderness to palpation present (GI), No Guarding due to palpation present (GI) and Yes No hepatosplenomegaly present Extremity: COMMON NORMALS: normal to inspection, capillary refill normal, no clubbing, cyanosis or edema, no calf tenderness and no pedal edema Neuro: SENSORIUM/ORIENTATION: Yes oriented to person, Yes oriented to place and Yes oriented to time DEEP TENDON REFLEXES: Right patellar reflex intensity grade: 0, Left patellar reflex intensity grade: 2+, Right ankle reflex intensity grade: 0 and Left ankle reflex intensity grade: 1+ OTHER: Patient demonstrates significant right foot drop along with exam suspect an L4 V nerve impingement. Patient is able to dorsiflex with the left foot and great toe and hold against resistance appropriately. The left toe he cannot really significantly dorsiflex the great toe and has no ability to hold to active resistance against dorsiflexion. He can dorsiflex just a little bit at the ankle but has no ability to hold against active resistance. Sensation is slightly diminished in the distal L4 distribution including the great toe and anterior tibia Skin: COMMON NORMALS: no rashes or lesions noted GENERAL SKIN EXAM: no rashes or lesions noted Course Vital Signs: Vital signs: Vital Signs Temperature 98.1 F 12/21/19 16:54 Pulse Rate 91 12/21/19 16:54 Respiratory Rate 19 H 12/21/19 16:54 Blood Pressure 143/90 12/21/19 16:54 Pulse Oximetry 96 12/21/19 16:54 MDM - Extremity (Nontraumatic) MDM Narrative: Medical decision making narrative: Patient does have significant foot drop and weakness he cannot holding against active resistance with dorsiflexion of the foot or with the great toe. He has minimal to no significant pain. Suspect he has does have a nerve impingement recommend to him rather than get back x-rays he really needs an MRI of the back x-rays are not likely to be that helpful regardless of what they show he will still need the MRI since he does have any pain there is no history of trauma noted to the back x-rays are really be that helpful. We will put him on a Medrol Dosepak to see if that helps a little bit although I am somewhat skeptical if it will since he has a functional problem but not real significant pain we will order an MRI of his back he can continue to use ankle brace if he wishes. After the MRI he will need to see neurosurgery possibly may need a EMG depending on the MRI results. Reviewed this with him will discharge him home and have case management attempt to get the MRI scheduled this may be a little difficult because [facility] Discharge Plan Discharge Patient Disposition: Home Clinical Impression: Lumbosacral radiculopathy at L4, Acquired right foot drop Condition: Stable Prescriptions: New Medrol (Joe) 4 mg tablets,dose pack See Rx Instructions .ROUTE .COMPLEX Qty: 21 RF: 0 No Action thiamine mononitrate (vit B1) [Vitamin B-1 (mononitrate)] 100 mg Tablet 100 mg PO DAILY Qty: 30 RF: 0 vancomycin 1.25 gram recon soln 1.25 gm IVP Q12H Qty: 22 RF: 0 Lactobacillus acidophilus Tablet,Chewable 1 tab PO BID Qty: 60 RF: 0 clotrimazole 1 % Cream 1 applic topical BID Qty: 30 RF: 0 multivitamin [Multiple Vitamins] Tablet 1 tab PO DAILY 30 Days Qty: 30 RF: 0 sennosides [senna] 8.6 mg Tablet 17.2 mg PO BID 30 Days Qty: 120 RF: 0 metoprolol succinate [Toprol XL] 50 mg tablet extended release 24 hr 50 mg PO DAILY 30 Days Qty: 30 RF: 0 sertraline 100 mg Tablet 150 mg PO DAILY 30 Days Qty: 30 RF: 0 diltiazem HCl 240 mg Capsule,Extended Release 24 Hr 240 mg PO QAM Qty: 30 RF: 0 melatonin [Melatin] 3 mg Tablet 3 mg PO BIDPC Qty: 30 RF: 0 allopurinol 100 mg Tablet 100 mg PO DAILY 30 Days Qty: 30 RF: 0 acetaminophen [Acetaminophen Extra Strength] 500 mg Tablet 500 - 1,000 mg PO QID PRN (Reason: Pain) Qty: 30 RF: 0 tamsulosin [Flomax] 0.4 mg Capsule 0.4 mg PO QPM 30 Days Qty: 30 RF: 0 metformin 1,000 mg Tablet 1,000 mg PO BID 30 Days Qty: 60 RF: 0 albuterol sulfate [ProAir HFA] 90 mcg/actuation Hfa Aerosol Inhaler 2 puff INHALATION QID PRN (Reason: Shortness Of Breath) Qty: 1 RF: 0 budesonide-formoterol [Symbicort] 80-4.5 mcg/actuation Hfa Aerosol Inhaler 2 puff INHALATION BID Qty: 10.2 RF: 0 cholecalciferol (vitamin D3) 50 mcg (2,000 unit) Tablet 50 mcg PO DAILY Qty: 30 RF: 0 Discharge Orders: Discharge Order (Routine); Ordered 12/21/19 Ordered By: Raghav Foley Referrals: [facility] [place] [Primary Care Provider] - Discharge Diet: Usual diet Discharge Activity: Increase activity as tolerated Activity Restrictions/Additional Instructions: Case management will try to make arrangements for you to get an MRI of your lumbar spine Discharge Date/Time: 12/21/19 16:54 Coding Level of Care Code ED [employer] Representative for Chg Fwd Exam Comprehensive
[2019-12-21 16:54] VITALS: BP 143/90; PULSE 91; RESP 19; TEMP 36.7; O2SAT 96
--- NOTE | 2019-12-31 15:48 | DCPLANNER ---
manager art called [facility], an out patient MRI was scheduled for patient for 12.31.19 and patient did attend the appointment.
== END 2019-12-21 16:54 | disposition home or self-care (01) ==
PROVIDERS: Emergency Provider Family Medicine
DX: M21.371 Foot drop, right foot (principal); M54.17 Radiculopathy, lumbosacral region; I48.91 Unspecified atrial fibrillation; J44.9 Chronic obstructive pulmonary disease, unspecified; E11.9 Type 2 diabetes mellitus without complications; Z79.84 Long term (current) use of oral hypoglycemic drugs; I10 Essential (primary) hypertension; I73.9 Peripheral vascular disease, unspecified; Z87.891 Personal history of nicotine dependence
CPT/HCPCS: 12345; 73610; 99281; 99282

== ENCOUNTER 2019-12-31 11:12 | Outpatient (CLI) | payer OTHER, SELFPAY ==
--- NOTE | 2019-12-31 11:15 | MR_ITS ---
WS: [id number] MRI LUMBAR SPINE NONCONTRAST TECHNIQUE: Sagittal T1, T2 and STIR imaging. Axial T1 and T2 imaging. CLINICAL INFORMATION: LUMBAR STENOSIS,CRITICAL W/NEW ONSET FOOT DROP COMPARISON: None. FINDINGS: Mild lumbar curve. No acute compression. No high-grade central canal stenosis. L1-L2: Mild annular bulging. Mild facet arthropathy. Spinal canal and foramen are patent. L2-L3: Normal. L3-L4: Mild annular bulging with slight effacement of ventral thecal sac. Mild right foraminal narrow ing. Mild facet arthropathy. Spinal canal is patent. L4-L5: Mild annular bulging with narrowing of the subarticular recess bilaterally. Moderate facet art hropathy. Mild right and no significant left foraminal narrowing. Small bilateral facet effusions. L5-S1: Mild annular bulging. Tiny central protrusion. Moderate facet arthropathy with small facet eff usions. Mild right and no significant left foraminal narrowing. Infrarenal abdominal aortic aneurysm measuring 4.0 x 3.6 cm AP by transverse. Partially visualized portion kidney MR/MR lumbar spine wo con* [id number] IMPRESSION: 1. Mild lumbar curve. No acute compression. No high-grade central canal stenos is. 2. Mild disc bulging L4-5 with narrowing of the subarticular recess bilaterall y right greater than left. Encroachment traversing L5 nerve roots. 3. Mild right L4-5 foraminal narrowing. 4. Mild disc bulging with osteophytic ridging. Mild right and no significant l eft foraminal narrowing. Slight encroachment on the traversing S1 nerve roots. 5. Moderate facet arthropathy L4-L5 and L5-S1 with small facet effusions likel y degenerative or inflammatory synovitis. 6. Partially visualized horseshoe kidney. 7. Infrarenal abdominal aortic aneurysm 4.0 x 3.6cm
== END 2019-12-31 11:13 | disposition home or self-care (01) ==
LOC: RADSHAW 11:13
PROVIDERS: Visit Provider Family Medicine
DX: M48.061 Spinal stenosis, lumbar region without neurogenic claudication (principal); M21.379 Foot drop, unspecified foot; M51.26 Other intervertebral disc displacement, lumbar region; M25.78 Osteophyte, vertebrae; M47.816 Spondylosis without myelopathy or radiculopathy, lumbar region; Q63.1 Lobulated, fused and horseshoe kidney; I71.4 Abdominal aortic aneurysm, without rupture
CPT/HCPCS: 72148

== ENCOUNTER → 2020-01-10 08:27 | Outpatient (BNVA) | payer OTHER, SELFPAY | PROVIDERS: Visit Provider Licensed Practical Nurse | DX: M51.17 Intervertebral disc disorders with radiculopathy, lumbosacral region (principal); M21.379 Foot drop, unspecified foot; M48.062 Spinal stenosis, lumbar region with neurogenic claudication; R26.81 Unsteadiness on feet | CPT/HCPCS: 99204 ==

== ENCOUNTER 2020-01-10 10:04 | Outpatient (CLI) | payer OTHER, SELFPAY ==
--- NOTE | 2020-01-10 10:13 | XR_ITS ---
WS: [id number] EXAM: XR lumbar spine f/e only [id number] DATE OF EXAMINATION: 01/10/2020, 1026 hours COMPARISON: None. HISTORY: 74 years old with low back pain. Right foot numbness FINDINGS: Lower thoracic and lumbar vertebrae are of normal height. Slight scattered degenerative spondylosis c hanges seen. Minimal anterolisthesis of L4 on L5 felt to be related to facet arthropathy changes. No acute fracture is seen. No pars fracture noted. Flexion and extension views show no evidence of insta bility. Aorta shows densely calcified plaque with what appears to be aneurysmal dilatation of the inf rarenal aorta 5.2 cm in diameter.
--- NOTE | 2020-01-10 17:09 | XR_ITS ---
WS: [id number] EXAM: XR lumbar spine f/e only [id number] DATE OF EXAMINATION: 01/10/2020, 1026 hours COMPARISON: None. HISTORY: 74 years old with low back pain. Right foot numbness FINDINGS: Lower thoracic and lumbar vertebrae are of normal height. Slight scattered degenerative spondylosis c hanges seen. Minimal anterolisthesis of L4 on L5 felt to be related to facet arthropathy changes. No acute fracture is seen. No pars fracture noted. Flexion and extension views show no evidence of insta bility. Aorta shows densely calcified plaque with what appears to be aneurysmal dilatation of the inf rarenal aorta 5.2 cm in diameter. XR/XR lumbar spine f/e only [id number] IMPRESSION: Scattered changes of arthritis. Minimal anterolisthesis of L4 on L5 felt to be related to facet laxity. With a history of right leg radiculopathy need to cons ider underlying spinal canal stenosis. CALCIFIED PLAQUE WITH ABDOMINAL AORTIC ANEURYSM IN THE AREA OF THE INFRARENAL A SAUL ESTIMATED AT 5.2 CM IN DIAMETER. THIS WILL NEED TO BE FOLLOWED.
== END 2020-01-10 10:05 | disposition home or self-care (01) ==
PROVIDERS: Visit Provider Licensed Practical Nurse
DX: M54.5 Low back pain (principal); I71.4 Abdominal aortic aneurysm, without rupture
CPT/HCPCS: 72120; 99204

== ENCOUNTER → 2020-04-07 10:12 | Outpatient (BNVA) | payer OTHER, SELFPAY | PROVIDERS: Referring Provider Licensed Practical Nurse; Visit Provider Specialist | DX: M21.379 Foot drop, unspecified foot (principal); M48.062 Spinal stenosis, lumbar region with neurogenic claudication; E11.42 Type 2 diabetes mellitus with diabetic polyneuropathy; Z79.84 Long term (current) use of oral hypoglycemic drugs; Z87.891 Personal history of nicotine dependence | CPT/HCPCS: 95885; 95909; 99203 ==

== ENCOUNTER → 2020-04-21 09:08 | Outpatient (BNVA) | payer OTHER, SELFPAY | PROVIDERS: Referring Provider Licensed Practical Nurse; Visit Provider Specialist | DX: G62.9 Polyneuropathy, unspecified (principal); Z87.891 Personal history of nicotine dependence | CPT/HCPCS: 99214 ==

== ENCOUNTER 2021-02-25 17:56 | Emergency (ER) | payer OTHER, SELFPAY ==
[2021-02-25] VITALS (14 sets, daily range): BP systolic 160–217; BP diastolic 90–134; PULSE 56–72; RESP 17–28; TEMP 36.6–37.1; O2SAT 90–94; BMI 31.1
--- NOTE | 2021-02-25 18:02 | ED_ITS ---
HPI - General Adult General: Chief complaint: Dizziness Stated complaint: N/V, HYPERTENSION Time Seen by Provider: 02/25/21 18:02 History of Present Illness: HPI narrative: Mr Mccabe is a 75-year-old gentleman with hypertension, hyperlipidemia, diabetes and paroxysmal atrial fibrillation on anticoagulation who presents the emergency department due to nausea, vomiting, high blood pressure. Over the past month he has noticed changes in health primarily a room spinning sensation which she characterizes as dizziness. This occurs intermittently and is often associated with position changes. He has mild associated nausea. No numbness, tingling, chest pain, shortness of breath. Usually when these episodes occur they last less than 10 minutes and are moderate to severe intensity. He denies frequent episodes of this in the past. Earlier today he felt well without recurrence of these episodes however just prior to presenting he stood up and had nausea and vomiting x1 which was nonbloody and nonbilious. He had mild associated dizziness with this episode. He otherwise has been compliant with his medication regimen. No other specific provoking, exacerbating, or alleviating factors identified. Review of Systems General: Reports: 10 or more systems reviewed and unremarkable except in HPI and below [facility] PFSH: Medical History (Updated 02/25/21 @ 22:51 by Herbert Oliveira MD) Abdominal aortic aneurysm Aortic stenosis Echocardiogram June 2019 showed valve area of 1.8 cm? with a mean gradient of 9 mmHg, described as moderate stenosis Atrial fibrillation Chronic alcohol dependence, continuous -known EtOH abuse -received banana bag on admission -on MVI, folic acid daily -not actively withdrawing, CIWA protocol Chronic back pain COPD (chronic obstructive pulmonary disease) Diabetes mellitus Footdrop Gout Hypertension -noted upward trend in BP, is on BB, will increase cardizem (he is on 240 mg at home), add lisinopril for more optimal BP control -continue to monitor vital signs Intervertebral disc disorder with radiculopathy of lumbosacral region Lumbar stenosis with neurogenic claudication Peripheral vascular disease 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 Barrios on 10/18 -synovial fluid culture prelim negative, anaerobic culture prelim negative Surgical History History of herniorrhaphy History of orthopedic surgery Right shoulder Hx of cholecystectomy Family History Father CAD (coronary artery disease) Social History Smoking and tobacco status: former smoker Alcohol intake: current Alcohol intake frequency: few times a week Household members: spouse Marital status: Current occupational status: retired History of recent travel: No Physical Exam Narrative: EXAM NARRATIVE: GENERAL/CONSTITUTIONAL - well-appearing. No acute distress. Eyes - PERRL, no conjunctival injection ENMT - Atraumatic external nose and ears. TMs normal. Moist mucous membranes NECK - supple. trachea midline CARDIOVASCULAR - regular rate and rhythm. Peripheral pulses 2+ and equal RESPIRATORY -clear to auscultation bilaterally. No retractions or accessory muscle use. ABDOMEN/GI - Nontender/Nondistended. No tenderness to percussion or evidence of peritonitis MSK - Extremities without obvious deformity or tenderness to palpation SKIN - Warm, Dry NEURO - alert and appropriately oriented. Cranial nerves II through XII intact. gait normal. Coordination normal. Strength and sensation intact. Course ED course: - Patient was seen and evaluated by me at bedside - Patient placed on cardiac monitors, IV access obtained - Initial evaluation notable for no acute distress, nontoxic appearance. Neurologic exam unremarkable however patient not currently having dizziness symptoms which limits evaluation of peripheral for central cause. - Labs notable for no leukocytosis, macrocytosis present. No significant metabolic abnormalities to explain patient's symptoms. Delta troponin negative. - Imaging notable for no acute abnormality to explain patient's symptoms. Carotid disease was discussed with the patient. - Upon serial reexamination after treatment the patient was similar without recurrence of symptoms. He remained oriented x3 despite triage note through the entirety of ED evaluation - Based on patient history, evaluation, labs, and imaging as interpreted the most likely cause of the patient's condition is unclear. - Patient is already on statin and on Eliquis. ABCD2 score low risk. - Given vertiginous sounding nature of symptoms will try meclizine. - The results of ED evaluation were discussed with the patient including prescriptions and/or symptomatic cares (if applicable) including appropriate and responsible use, followup plan, and return precautions. The patient verbalized understanding and felt safe for discharge. - Patient discharged in satisfactory condition. Vital Signs: Vital signs: Vital Signs Temperature 97.8 F 02/25/21 18:25 Pulse Rate 72 02/25/21 23:54 Respiratory Rate 22 H 02/25/21 23:54 Blood Pressure 191/99 02/25/21 23:54 Pulse Oximetry 92 02/25/21 23:54 MDM - General Adult Medical Records: Attestation: I reviewed the patient's medical records. Lab Data: Attestation: I reviewed the patient's lab results. Labs: Lab Results 02/25/21 02/25/21 02/25/21 18:10 18:10 18:10 WBC 7.2 10^3/uL 10^3/ uL (4.0-10.0) RBC 4.44 10^6/uL 10^6 /uL (4.1-5.3) Hgb 15.1 g/dL g/dL (11.7-16.6) Hct 45.5 % % (42.0-52.0) MCV 102.5 fl H fl (80-94) MCH 34.0 pg pg (28.0-34.0) MCHC 33.2 g/dL g/dL (30.0-36.0) RDW 12.4 % % (12.1-15.1) Plt Count 202 10^3/cmm 10^3 /cmm (130-400) MPV 12.1 fL H fL (7.4-10.4) Neut % (Auto) 73.5 % % Lymph % (Auto) 14.1 % % Bradley % (Auto) 10.0 % % Eos % (Auto) 0.6 % % Baso % (Auto) 1.0 % % Neut # (Auto) 5.30 10^3/uL 10^3 /uL (1.8-7.7) Lymph # (Auto) 1.0 10^3/uL 10^3/ uL (0.8-4.8) Bradley # (Auto) 0.7 10^3/uL 10^3/ uL (0.2-0.9) Eos # (Auto) 0.0 10^3/uL 10^3/ uL (0.0-0.8) Baso # (Auto) 0.1 10^3/uL 10^3/ uL (0.0-0.1) Nucleated RBC % (a uto) 0 % % Nucleated RBCs # 0.0 /100WBC /100W BC PT INR Sodium 134 mmol/L L mmol /L (136-145) Potassium 4.5 mmol/L mmol/L (3.5-5.1) Chloride 98 mmol/L mmol/L (98-107) Carbon Dioxide 22 mmol/L mmol/L (22-29) Anion Gap 18.5 (5-19) BUN 16 mg/dL mg/dL (8-23) Creatinine 0.8 mg/dL mg/dL (0.7-1.2) GFR Calculation Not Reportable Glucose 217 mg/dL H mg/dL (65-115) POC Glucose Calculated Osmolal ity 286 mOsm/kg mOsm/ kg (285-295) Calcium 9.4 mg/dL mg/dL (8.5-10.5) Total Bilirubin 1.0 mg/dL mg/dL (0.15-1.2) AST 36 U/L U/L (0-40) ALT 31 U/L U/L (0-41) Alkaline Phosphata se 77 IU/L IU/L (40-130) Troponin T Baselin e 22 ng/L H ng/L (0-15) Troponin T 120 Min [place] Troponin T NT-Pro-B Natriuret Pep 1022 pg/mL H pg/m L (0-125) Total Protein 7.0 g/dL g/dL (6.6-8.7) Albumin 4.3 g/dL g/dL (3.5-5.2) Globulin 2.7 g/dL g/dL (1.3-4.6) TSH 2.15 uIU/mL uIU/m L (0.27-4.20) Urine Color Urine Appearance Urine pH Ur Specific Gravit y Urine Protein Urine Glucose (UA) Urine Ketones Urine Blood Urine Nitrate Urine Bilirubin Urine Urobilinogen Ur Leukocyte Armida ase 02/25/21 02/25/21 02/25/21 18:10 18:45 18:48 WBC RBC Hgb Hct MCV MCH MCHC RDW Plt Count MPV Neut % (Auto) Lymph % (Auto) Bradley % (Auto) Eos % (Auto) Baso % (Auto) Neut # (Auto) Lymph # (Auto) Bradley # (Auto) Eos # (Auto) Baso # (Auto) Nucleated RBC % (a uto) Nucleated RBCs # PT 14.30 SECONDS SEC ONDS (12.1-14.9) INR 1.07 (0.8-1.2) Sodium Potassium Chloride Carbon Dioxide Anion Gap BUN Creatinine GFR Calculation Glucose POC Glucose 205 mg/dL H mg/dL (70-110) Calculated Osmolal ity Calcium Total Bilirubin AST ALT Alkaline Phosphata se Troponin T Baselin e Troponin T 120 Min [place] Troponin T NT-Pro-B Natriuret Pep Total Protein Albumin Globulin TSH Urine Color Yellow (Yellow) Urine Appearance Clear (CLEAR) Urine pH 5 (5-7) Ur Specific Gravit y 1.020 (1.005-1.030) Urine Protein Neg (Negative) Urine Glucose (UA) 2+ H (Normal) Urine Ketones Negative (Negative) Urine Blood Neg (Negative) Urine Nitrate Negative (Negative) Urine Bilirubin Neg (Negative) Urine Urobilinogen Norm mg/dL mg/dL (Negative) Ur Leukocyte Armida ase Negative (Negative) 02/25/21 20:05 WBC RBC Hgb Hct MCV MCH MCHC RDW Plt Count MPV Neut % (Auto) Lymph % (Auto) Bradley % (Auto) Eos % (Auto) Baso % (Auto) Neut # (Auto) Lymph # (Auto) Bradley # (Auto) Eos # (Auto) Baso # (Auto) Nucleated RBC % (a uto) Nucleated RBCs # PT INR Sodium Potassium Chloride Carbon Dioxide Anion Gap BUN Creatinine GFR Calculation Glucose POC Glucose Calculated Osmolal ity Calcium Total Bilirubin AST ALT Alkaline Phosphata se Troponin T Baselin e Troponin T 120 Min [place] 21.85 ng/L H ng/L (0-15) Delta Troponin T -0.15 ABS# L ABS# (0-10) NT-Pro-B Natriuret Pep Total Protein Albumin Globulin TSH Urine Color Urine Appearance Urine pH Ur Specific Gravit y Urine Protein Urine Glucose (UA) Urine Ketones Urine Blood Urine Nitrate Urine Bilirubin Urine Urobilinogen Ur Leukocyte Armida ase EKG Data^: EKG 1: Attestation: I personally reviewed and interpreted this EKG as follows: EKG interpretation date: 02/25/21 EKG interpretation time: 18:47 Interpretation: Twelve-lead EKG shows a irregular rhythm at a rate of 56. ID interval not present. QRS duration 99. QTc 330. Normal [place]. . Interpretation: Atrial fibrillation rhythm. Controlled ventricular response. Computer generated interpretation: Chest X-Ray 02/25/21 18:15 IMPRESSION: No acute findings. Radiation Dose CTDIVOL = (mGy): DLP = (mGy-cm) Head CT 02/25/21 18:15 IMPRESSION: 1. Negative for acute intracranial abnormality. 2. No change from comparison. Radiation Dose CTDIVOL = (mGy): DLP = 895.32 (mGy-cm) Head/Neck CTA 02/25/21 20:48 IMPRESSION: 1. Negative for vascular occlusion in the neck. 2. Mild to moderate severity proximal right internal carotid artery stenosis which is at least approaching 50%, but possibly slightly greater than 50%. 3. Mild severity left internal carotid artery stenosis approaching, but appears less than 50%. 4. Recommend carotid artery duplex ultrasound correlation on an outpatient basis. REFERENCES: NASCET CRITERIA. The degree of internal carotid artery stenosis is based on NASCET criteria. Normal is no stenosis. Mild is less than 50% stenosis. Moderate is 50-69% stenosis. Severe is 70% to 99% stenosis. Total occlusion is no detectable patent lumen. Radiation Dose CTDIVOL = (mGy): DLP = 2592.44~2592.44 (mGy-cm) EKG 2: Attestation: I personally reviewed and interpreted this EKG as follows: EKG interpretation date: 02/25/21 EKG interpretation time: 22:11 Interpretation: Twelve-lead EKG shows a irregular rhythm at a rate of 64. ID interval not present. QRS duration 96. QTc 399. Normal [place]. . Interpretation: Atrial fibrillation rhythm. . Computer generated interpretation: Chest X-Ray 02/25/21 18:15 IMPRESSION: No acute findings. Radiation Dose CTDIVOL = (mGy): DLP = (mGy-cm) Head CT 02/25/21 18:15 IMPRESSION: 1. Negative for acute intracranial abnormality. 2. No change from comparison. Radiation Dose CTDIVOL = (mGy): DLP = 895.32 (mGy-cm) Head/Neck CTA 02/25/21 20:48 IMPRESSION: 1. Negative for vascular occlusion in the neck. 2. Mild to moderate severity proximal right internal carotid artery stenosis which is at least approaching 50%, but possibly slightly greater than 50%. 3. Mild severity left internal carotid artery stenosis approaching, but appears less than 50%. 4. Recommend carotid artery duplex ultrasound correlation on an outpatient basis. REFERENCES: NASCET CRITERIA. The degree of internal carotid artery stenosis is based on NASCET criteria. Normal is no stenosis. Mild is less than 50% stenosis. Moderate is 50-69% stenosis. Severe is 70% to 99% stenosis. Total occlusion is no detectable patent lumen. Radiation Dose CTDIVOL = (mGy): DLP = 2592.44~2592.44 (mGy-cm) Discharge Plan Discharge Patient Disposition: Home Clinical Impression: Dizziness, Nausea and vomiting, Carotid stenosis Condition: Stable Prescriptions: New meclizine 25 mg tablet 25 mg PO TID PRN (Reason: dizziness) Qty: 14 RF: 0 No Action warfarin [Coumadin] 5 mg tablet 5 mg PO .COMPLEX RF: 0 thiamine mononitrate (vit B1) [Vitamin B-1 (mononitrate)] 100 mg Tablet 100 mg PO DAILY Qty: 30 RF: 0 Lactobacillus acidophilus Tablet,Chewable 1 tab PO BID Qty: 60 RF: 0 clotrimazole 1 % Cream 1 applic topical BID Qty: 30 RF: 0 multivitamin [Multiple Vitamins] Tablet 1 tab PO DAILY 30 Days Qty: 30 RF: 0 sennosides [senna] 8.6 mg Tablet 17.2 mg PO BID 30 Days Qty: 120 RF: 0 metoprolol succinate [Toprol XL] 50 mg tablet extended release 24 hr 50 mg PO DAILY 30 Days Qty: 30 RF: 0 sertraline 100 mg Tablet 150 mg PO DAILY 30 Days Qty: 30 RF: 0 diltiazem HCl 240 mg Capsule,Extended Release 24 Hr 240 mg PO QAM Qty: 30 RF: 0 melatonin [Melatin] 3 mg Tablet 3 mg PO BIDPC Qty: 30 RF: 0 allopurinol 100 mg Tablet 100 mg PO DAILY 30 Days Qty: 30 RF: 0 acetaminophen [Acetaminophen Extra Strength] 500 mg Tablet 500 - 1,000 mg PO QID PRN (Reason: Pain) Qty: 30 RF: 0 tamsulosin [Flomax] 0.4 mg Capsule 0.4 mg PO QPM 30 Days Qty: 30 RF: 0 metformin 1,000 mg Tablet 1,000 mg PO BID 30 Days Qty: 60 RF: 0 albuterol sulfate [ProAir HFA] 90 mcg/actuation Hfa Aerosol Inhaler 2 puff INHALATION QID PRN (Reason: Shortness Of Breath) Qty: 1 RF: 0 budesonide-formoterol [Symbicort] 80-4.5 mcg/actuation Hfa Aerosol Inhaler 2 puff INHALATION BID Qty: 10.2 RF: 0 cholecalciferol (vitamin D3) 50 mcg (2,000 unit) Tablet 50 mcg PO DAILY Qty: 30 RF: 0 Discharge Orders: Discharge ED (Routine); Ordered 02/25/21 Ordered By: Herbert Oliveira Referrals: [facility] [Primary Care Provider] - Discharge Diet: Usual diet Discharge Activity: Resume usual activity Patient Instructions: Carotid Artery Disease (DC), Acute Nausea and Vomiting (ED), Dizziness (ED) Activity Restrictions/Additional Instructions: Thank you for visiting the emergency department. You were seen and evaluated for dizziness and an episode of nausea and vomiting. The exact cause of your symptoms is unclear though may be related to inner ear dysfunction. Please follow-up with your primary care provider in the next few days. You were noted to have mild to moderate carotid artery stenosis and should have an outpatient ultrasound. Please return for recurrent symptoms, weakness or numbness, speech difficulty, confusion, or anything else that you are concerned about and feel needs emergency department evaluation. Coding Level of Care Code ED System Operator for Patrick Baez
--- NOTE | 2021-02-25 18:15 | XRR_ITS ---
PROCEDURE INFORMATION: Exam: XR Chest Exam date and time: 02/25/2021 6:15 PM Age: 75 years old Clinical indication: Other: High hr/dizzy; Additional info: Dizzy, irregular heart rate TECHNIQUE: Imaging protocol: XR of the chest. Views: 1 view. COMPARISON: CR XR chest 1V portable [id number] 10/09/2019 12:39 PM FINDINGS: Lungs: Unremarkable. No consolidation. Pleural spaces: Unremarkable. No pleural effusion. No pneumothorax. Heart/Mediastinum: Unremarkable. No cardiomegaly. Bones/joints: Unremarkable. XR/XR chest 1V portable [id number] IMPRESSION: No acute findings. Radiation Dose CTDIVOL = (mGy): DLP = (mGy-cm)
--- NOTE | 2021-02-25 18:15 | CTR_ITS ---
PROCEDURE INFORMATION: Exam: CT Head Without Contrast Exam date and time: 02/25/2021 6:15 PM Age: 75 years old Clinical indication: Pain; Dizziness; Headache TECHNIQUE: Imaging protocol: Computed tomography of the head without contrast. Radiation optimization: All CT scans at this facility use at least one of these dose optimization techniques: automated exposure control; mA and/or kV adjustment per patient size (includes targeted exams where dose is matched to clinical indication); or iterative reconstruction. COMPARISON: CT head wo con* [id number] 10/01/2019 7:19 PM RADIATION DOSE METRICS: Total DLP (mGy-cm): 895.32 FINDINGS: Brain: There is marked cerebral atrophy. No intracranial hemorrhage. No intracranial mass. No acute brain ischemia. No cerebral sulcal effacement. No midline shift of the brain. Cerebral ventricles: No ventriculomegaly. Paranasal sinuses: Visualized sinuses are unremarkable. No fluid levels. Mastoid air cells: Visualized mastoid air cells are well aerated. Orbital cavity: Symmetric, unremarkable orbits. Vasculature: Intracranial atherosclerosis. Bones/joints: Unremarkable. No acute fracture. Soft tissues: Unremarkable. CT/CT head wo con* [id number] IMPRESSION: 1. Negative for acute intracranial abnormality. 2. No change from comparison. Radiation Dose CTDIVOL = (mGy): DLP = 895.32 (mGy-cm)
--- NOTE | 2021-02-25 18:16 | ECG_ITS ---
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 Measurements Intervals [place] Rate: 56 P: ID: QRS: 49 QRSD: 99 T: 69 QT: 340 QTc: 328 Interpretive Statements ATRIAL FIBRILLATION WITH SLOW VENTRICULAR RESPONSE MINIMAL VOLTAGE CRITERIA FOR LVH, CONSIDER NORMAL VARIANT [MEETS CRITERIA IN ONE OF: R(aVL), S(V1), R(V5), R(V5/V6)+S(V1)] NONSPECIFIC ST & T-WAVE ABNORMALITY ABNORMAL RHYTHM ECG Compared to ECG 10/01/2019 23:18:59 T-wave abnormality now present Electronically Signed On 02-25-2021 23:04:14 CDT by Nellie Webb M.D. [id number]
[2021-02-25 18:52] LABS: Glucose Point of Care 205 mg/dL (70-110)
[2021-02-25 19:09] LABS: Add Urine Microscopic? NO; Charge for UA Resulting for Rev
[2021-02-25 19:11] LABS: Basophils # 0.1 10^3/uL (0.0-0.1); Eosinophils % 0.6 %; Hematocrit 45.5 % (42.0-52.0); Hemoglobin 15.1 g/dL (11.7-16.6); Lymphocytes % 14.1 %; Mean Corpuscular HGB Conc 33.2 g/dL (30.0-36.0); Mean Corpuscular Volume 102.5 fl (80-94); Mean Platelet Volume 12.1 fL (7.4-10.4); Monocytes # 0.7 10^3/uL (0.2-0.9); Neutrophils % 73.5 %; Nucleated Red Blood Cells % 0 %; Platelet Count 202 10^3/cmm (130-400); Red Blood Count 4.44 10^6/uL (4.1-5.3); Red Cell Distribution Width 12.4 % (12.1-15.1); White Blood Count 7.2 10^3/uL (4.0-10.0)
[2021-02-25 19:17] LABS: INR 1.07 (0.8-1.2)
[2021-02-25 19:30] LABS: Troponin(5th) Baseline 22 ng/L (0-15)
[2021-02-25 19:40] LABS: Bilirubin Urine Neg (Negative); Blood Urine Neg (Negative); Glucose Urine UA 2+ (Normal); Ketones Urine Negative (Negative); Leukocyte Esterase Urine Negative (Negative); Nitrate Urine Negative (Negative); Protein Urine Neg (Negative); Urine Appearance Clear (CLEAR); Urine Color Yellow (Yellow); Urobilinogen Urine Norm (Negative); pH Urine 5 (5-7)
[2021-02-25 19:41] LABS: Alanine Aminotransferase 31 U/L (0-41); Albumin Level 4.3 g/dL (3.5-5.2); Alkaline Phosphatase 77 IU/L (40-130); Anion Gap 18.5 (5-19); Aspartate Amino Transferase 36 U/L (0-40); Blood Urea Nitrogen 16 mg/dL (8-23); Calcium 9.4 mg/dL (8.5-10.5); Carbon Dioxide 22 mmol/L (22-29); Chloride 98 mmol/L (98-107); Creatinine Clr Calc Pharmacy 101.1661; Globulin 2.7 g/dL (1.3-4.6); Glucose 217 mg/dL (65-115); NT Pro B Type Natriuretic Pept 1022 pg/mL (0-125); Osmolality Calculated 286 mOsm/kg (285-295); Potassium 4.5 mmol/L (3.5-5.1); Sodium 134 mmol/L (136-145); Thyroid Stimulating Hormone 2.15 uIU/mL (0.27-4.20)
--- NOTE | 2021-02-25 20:16 | ECG_ITS ---
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 Measurements Intervals [place] Rate: 64 P: IA: QRS: 58 QRSD: 96 T: 0 QT: 390 QTc: 403 Interpretive Statements ATRIAL FIBRILLATION NONSPECIFIC ST & T-WAVE ABNORMALITY ABNORMAL RHYTHM ECG INTERPRETATION BASED ON A DEFAULT AGE OF 40 YEARS Compared to ECG 02/25/2021 18:43:47 No significant changes Electronically Signed On 02-25-2021 23:10:12 CDT by Nellie Webb M.D. [id number] f
[2021-02-25 20:43] LABS: Troponin 5 2HR 21.85 ng/L (0-15)
[2021-02-25 20:46] LABS: Troponin 5 2HR Delta -0.15 ABS# (0-10)
--- NOTE | 2021-02-25 20:48 | CTR_ITS ---
PROCEDURE INFORMATION: Exam: CT Angiography Head With Contrast, Arteriography Exam date and time: 02/25/2021 8:48 PM Age: 75 years old Clinical indication: Dizziness and giddiness TECHNIQUE: Imaging protocol: Computed tomography angiography of the head with contrast. Exam focused on the arteries. 3D rendering (Not supervised by radiologist): MIP and/or 3D reconstructed images were created by the technologist. Radiation optimization: All CT scans at this facility use at least one of these dose optimization techniques: automated exposure control; mA and/or kV adjustment per patient size (includes targeted exams where dose is matched to clinical indication); or iterative reconstruction. Contrast material: OMNI 350; Contrast volume: 95 ml; Contrast route: INTRAVENOUS (IV); COMPARISON: CT head wo con* [id number] 02/25/2021 6:24 PM RADIATION DOSE METRICS: Total DLP (mGy-cm): 2592.44 FINDINGS: ANTERIOR CIRCULATION: Right internal carotid artery: Unremarkable. Intracranial segment is patent with no significant stenosis. No aneurysm. Right middle cerebral artery: Unremarkable. No occlusion or significant stenosis. No aneurysm. Right anterior cerebral artery: Unremarkable. No occlusion or significant stenosis. No aneurysm. Left internal carotid artery: Unremarkable. Intracranial segment is patent with no significant stenosis. No aneurysm. Left middle cerebral artery: Unremarkable. No occlusion or significant stenosis. No aneurysm. Left anterior cerebral artery: Unremarkable. No occlusion or significant stenosis. No aneurysm. POSTERIOR CIRCULATION: Right vertebral artery: Unremarkable. No occlusion or significant stenosis. No aneurysm. Left vertebral artery: Unremarkable. No occlusion or significant stenosis. No aneurysm. Basilar artery: Unremarkable. No occlusion or significant stenosis. No aneurysm. Right posterior cerebral artery: Unremarkable. No occlusion or significant stenosis. No aneurysm. Left posterior cerebral artery: Unremarkable. No occlusion or significant stenosis. No aneurysm. Brain: There is marked cerebral atrophy. Cerebral ventricles: No ventriculomegaly. Bones/joints: Unremarkable. No acute fracture. Soft tissues: Unremarkable. IMPRESSION: Unremarkable CT angiogram head. No intracranial large arterial vessel occlusion. PROCEDURE INFORMATION: Exam: CT Angiography Neck With Contrast Exam date and time: 02/25/2021 8:48 PM Age: 75 years old Clinical indication: Dizziness and giddiness TECHNIQUE: Imaging protocol: Computed tomography angiography of the neck with contrast. 3D rendering (Not supervised by radiologist): MIP and/or 3D reconstructed images were created by the technologist. Radiation optimization: All CT scans at this facility use at least one of these dose optimization techniques: automated exposure control; mA and/or kV adjustment per patient size (includes targeted exams where dose is matched to clinical indication); or iterative reconstruction. Contrast material: OMNI 350; Contrast volume: 95 ml; Contrast route: INTRAVENOUS (IV); COMPARISON: CT head wo con* [id number] 02/25/2021 6:24 PM RADIATION DOSE METRICS: Total DLP (mGy-cm): 2592.44 FINDINGS: Right common carotid artery: Scattered small calcified plaques throughout right common carotid artery. Minimal stenosis less than 50%. Right internal carotid artery: Large circumferential mostly calcified plaque volume in the proximal right ICA. Moderate severity stenosis estimated 50-69%. Right external carotid artery: Moderate severity stenosis at the origin of the right external carotid artery estimated 50-69%. Left common carotid artery: Scattered small calcified plaques throughout left common carotid artery. Areas of minimal stenosis less than 50%. Left internal carotid artery: Large volume circumferential calcified plaque of the proximal left ICA. There is mild severity stenosis which is approaching 50%. Left external carotid artery: No occlusion or stenosis of the origin. Right vertebral artery: Small calcified plaques in the proximal right vertebral artery. Mild stenosis less than 50%. Left vertebral artery: Small calcified plaques in the proximal left vertebral artery. Mild severity stenosis less than 50%. Soft tissues: Normal. No significant soft tissue swelling. Bones/joints: No acute fracture. Lungs: Moderate severity emphysema. CT/CT angio headneck* [id number] IMPRESSION: 1. Negative for vascular occlusion in the neck. 2. Mild to moderate severity proximal right internal carotid artery stenosis which is at least approaching 50%, but possibly slightly greater than 50%. 3. Mild severity left internal carotid artery stenosis approaching, but appears less than 50%. 4. Recommend carotid artery duplex ultrasound correlation on an outpatient basis. REFERENCES: NASCET CRITERIA. The degree of internal carotid artery stenosis is based on NASCET criteria. Normal is no stenosis. Mild is less than 50% stenosis. Moderate is 50-69% stenosis. Severe is 70% to 99% stenosis. Total occlusion is no detectable patent lumen. Radiation Dose CTDIVOL = (mGy): DLP = 2592.44~2592.44 (mGy-cm)
[2021-02-25] MEDS: iohexol 350 mg/mL 100 mL Btl IV (21:08)
[2021-02-25] MEDS: hyDRALAzine 20 mg/mL INJ 1 mL 10 MG IVP (21:50)
[2021-02-25] MEDS: meclizine 25 mg tablet PO (23:00)
== END 2021-02-25 23:30 | disposition home or self-care (01) ==
PROVIDERS: Emergency Provider Emergency Medicine
DX: R42 Dizziness and giddiness (principal); R11.2 Nausea with vomiting, unspecified; I65.29 Occlusion and stenosis of unspecified carotid artery; Z79.01 Long term (current) use of anticoagulants; J44.9 Chronic obstructive pulmonary disease, unspecified; I48.91 Unspecified atrial fibrillation; E11.9 Type 2 diabetes mellitus without complications; I10 Essential (primary) hypertension; Z87.891 Personal history of nicotine dependence
CPT/HCPCS: 36416; 70450; 70496; 70498; 71045; 80053; 81003; 82962; 83880; 84443; 84484; 85025; 85610; 93005; 96374; 99284; J0360; J8597; Q9967

== ENCOUNTER 2021-06-26 14:44 | Outpatient (CLI) | payer OTHER, SELFPAY ==
--- NOTE | 2021-06-26 14:14 | USCV_ITS ---
Azam Mccabe Age: 76 Gender: M : 1945 Exam Date: 06/26/2021 15:04 Ordering Phys: Gordon Johnson M.D Technologist: DENY [place]am [place] [facility] [place]: History of atrial fibrillation. No hx of cardiac intervention per patient. Assess for non-rheumatic aortic valve stenosis. BP: / HR: 57 Rhythm: Atrial fibrillation Technical Quality: Adequate MEASUREMENTS (Male / Female) Normal Values FINDINGS Left Ventricle Normal left ventricular size. LV systolic function is normal with EF of 55-60%. No regional wall motion abnormalities. Right Ventricle The right ventricle is normal in size and function. Right Atrium The right atrium is normal in size. Left Atrium The left atrium is normal in size. Mitral Valve Mild mitral annular calcification without stenosis or prolapse. There is no mitral regurgitation. Aortic Valve Aortic valve is thickened and calcified. Moderate aortic stenosis with MANOLO of 1.6cm2 and mean gradient of 36mmHg. There is moderate aortic regurgitation. Tricuspid Valve Structurally normal tricuspid valve without significant stenosis. Mild tricuspid regurgitation. Pulmonary artery systolic pressure is normal. Pulmonic Valve Structurally normal pulmonic valve without significant stenosis. There is trace pulmonic regurgitation. Pericardium Normal pericardium without effusion. Aorta Normal ascending aorta dimension. CONCLUSIONS LV systolic function is normal with EF of 55-60% Diastolic function is indeterminate because of atrial fibrillation Mild mitral annular calcification Aortic valve is thickened and calcified. Moderate aortic stenosis with MANOLO of 1.6cm2 and mean gradient of 36mmHg Moderate aortic regurgitation Mild tricuspid regurgitation Trace pulmonic regurgitation Compared to prior echocardiogram from 10/07/2019, gradient across the aortic valve has worsened and is 36mmHg now. Gordon Johnson MD (Electronically Signed) Final Date: 06 July 2021 08:46 S
== END 2021-06-26 14:45 | disposition home or self-care (01) ==
LOC: RAD 14:45
PROVIDERS: PCP Family Medicine; Visit Provider Internal Medicine
DX: I48.91 Unspecified atrial fibrillation (principal); I08.2 Rheumatic disorders of both aortic and tricuspid valves
CPT/HCPCS: 93306

== ENCOUNTER → 2021-08-03 14:57 | Outpatient (BNVA) | payer OTHER, SELFPAY | PROVIDERS: PCP Family Medicine; Visit Provider Internal Medicine | DX: I35.0 Nonrheumatic aortic (valve) stenosis (principal); I10 Essential (primary) hypertension; I48.19 Other persistent atrial fibrillation; I73.9 Peripheral vascular disease, unspecified; R06.02 Shortness of breath; R07.9 Chest pain, unspecified; Z87.891 Personal history of nicotine dependence | CPT/HCPCS: 99214 ==

== ENCOUNTER → 2022-05-03 12:20 | Outpatient (BNVA) | payer OTHER, SELFPAY | PROVIDERS: PCP Family Medicine; Visit Provider Internal Medicine | DX: I35.0 Nonrheumatic aortic (valve) stenosis (principal); I10 Essential (primary) hypertension; I48.19 Other persistent atrial fibrillation; Z79.01 Long term (current) use of anticoagulants; I73.9 Peripheral vascular disease, unspecified; Z87.891 Personal history of nicotine dependence | CPT/HCPCS: 99214 ==

== ENCOUNTER 2022-05-31 13:05 | Outpatient (CLI) | payer OTHER, SELFPAY ==
--- NOTE | 2022-05-31 13:30 | USCV_ITS ---
Azam Mccabe Age: 76 Gender: M : 1945 Exam Date: 05/31/2022 13:37 Ordering Phys: Gordon Johnson M.D ([email or web address]) Technologist: [place] [facility] [place]: AORTIC STENOSIS BP: 134 / 72 HR: 50 Rhythm: Sinus Technical Quality: Adequate MEASUREMENTS (Male / Female) Normal Values 2D ECHO LV Diastolic Diameter PLAX 3.7 cm 4.2 - 5.9 / 3.9 - 5.3 cm LV Systolic Diameter PLAX 2.4 cm IVS Diastolic Thickness 1.4 cm 0.6 - 1.0 / 0.6 - 0.9 cm IVS Systolic Thickness 1.6 cm LVPW Diastolic Thickness 1.4 cm 0.6 - 1.0 / 0.6 - 0.9 cm LVPW Systolic Thickness 1.8 cm LVOT Diameter 2.0 cm LV Ejection Fraction 2D Teich 65.2 % LV Ejection Fraction MOD 2C 69.6 % LV Ejection Fraction 2C AL 68.9 % LA Diameter 4.7 cm Aorta at Sinotubular Diameter 3.3 cm IVC Diameter 1.8 cm M-MODE Aortic Annulus Diameter 3.9 cm LA Ao Ratio MM 1.1 MV E Point Septal Separation 1.6 cm DOPPLER AV Peak Velocity 503.7 cm/s LVOT Peak Velocity 109.0 cm/s AV Area Cont Eq vti 0.8 cm squared AV Area Cont Eq pk 0.7 cm squared MV Area PHT 2.2 cm squared MV E' Velocity 95.5 cm/s Mitral E to MV E' Ratio 19.9 Mitral E to LV E' Lateral Ratio 18.3 Mitral E to LV E' Septal Ratio 22.0 TR Peak Velocity 320.0 cm/s TR Peak Gradient 41.0 mmHg TV Peak E Velocity 143.0 cm/s Right Atrial Pressure 3.0 mmHg Pulmonary Artery Systolic Pressu 44.0 mmHg PV Peak Velocity 94.0 cm/s RV Acceleration Time 0.1 s FINDINGS Left Ventricle Left ventricle is normal in size. LV systolic function is normal with EF of 60-65 %. No regional wall motion abnormalities are seen. Right Ventricle Normal in size and function Right Atrium Normal in size Left Atrium Mildly dilated. Mitral Valve Moderately thickened mitral valve. No significant regurgitation. Aortic Valve Aortic valve is thickened and calcified. Severe aortic stenosis seen with mean gradient across aortic valve of 43 mmHg and aortic valve area of 0.83 cm squared. Mild aortic regurgitation. Tricuspid Valve Mild tricuspid regurgitation. RVSP is 40 to 45 mmHg. This is consistent with mild pulmonary hypertension. Pulmonic Valve Not well-visualized Pericardium Normal Aorta Mildly dilated ascending aorta IVC Appears to be normal CONCLUSIONS LV systolic function is normal with EF of 60 to 65%. Mildly dilated left atrium Aortic valve is thickened and calcified. Severe aortic stenosis seen with mean gradient across aortic valve of 43 mmHg and aortic valve area of 0.83 cm squared. Mild aortic regurgitation is seen Mild tricuspid regurgitation. Mild pulmonary hypertension. Mildly dilated ascending aorta. Compared with prior echocardiogram from 06/2021, aortic stenosis has progressed and is severe now. Gordon Johnson MD (Electronically Signed) Final Date: 04 June 2022 15:09 S
== END 2022-05-31 13:06 | disposition home or self-care (01) ==
LOC: RAD 13:08
PROVIDERS: PCP Family Medicine; Visit Provider Internal Medicine
DX: I35.0 Nonrheumatic aortic (valve) stenosis (principal)
CPT/HCPCS: 93306

== ENCOUNTER → 2022-07-01 12:12 | Outpatient (BNVA) | payer OTHER, SELFPAY | PROVIDERS: PCP Family Medicine; Visit Provider Internal Medicine | DX: I35.0 Nonrheumatic aortic (valve) stenosis (principal); I10 Essential (primary) hypertension; I48.19 Other persistent atrial fibrillation; I73.9 Peripheral vascular disease, unspecified; Z87.891 Personal history of nicotine dependence | CPT/HCPCS: 99214 ==

== ENCOUNTER 2022-07-07 06:13 | Outpatient (CLI) | payer OTHER, SELFPAY ==
[2022-07-07] VITALS (49 sets, daily range): BP systolic 113–150; BP diastolic 68–119; PULSE 41–73; RESP 14–25; TEMP 36.7; O2SAT 92–98; BMI 29.4
--- NOTE | 2022-07-07 06:39 | XACV_ITS ---
Exam Room: 2 Ht: 183 cm Wt: 98 kg BSA: 2.26 m2 Gender: Male : 1945 Any Known Allergies: Other Exam Priority: Routine Procedure(s): Procedure Description: Diagnostic procedure Procedure Description: Left Heart Catheterization Procedure Description: Right Heart Catheterization Procedure Description: O2 saturation Procedure Description: Miscellaneous Procedure Description: ACT Procedure Description: Coronary Angiography Diagnostic Cath Status: Elective Diagnostic Findings * Left Main: heavily calcified severe 70% stenosis in distal vessel, GAYLA: 3 flow. * Left Anterior Descending has critical 90% ostial lesion and has serial 80-90% heavily calcified lesions from proximal to mid LAD. * Right Coronary Artery is patent. PDA has significant diffuse disease. * Aortic valve study: Aortic valve area: 1 cm2 Mean gradient across aortic valve: 50 mmHg. * INDICATION: Severe aortic stenosis. * Proximal Circumflex: significant 80% stenosis, GAYLA: 3 flow. * Mid Circumflex: significant 80% stenosis, GAYLA: 3 flow. * Coronary angiography shows right dominance. Conclusions 1. Severe multivessel coronary artery disease. 2. Severe aortic stenosis. 3. Access difficulty, likely has significant peripheral artery disease. Recommendations * We will refer patient to structural heart disease as needs heart team discussion for SAVR with CABG vs TAVR. * Outpatient cardiology follow up in 1 week. Pressures Phase:Rest AO : 102 / 68 ( 84 ) @ 10:31:00 AM 132 / 73 ( 98 ) @ 10:44:00 AM 120 / 64 ( 92 ) @ 10:46:00 AM LV : 199 / -18 / 5 @ 10:44:00 AM 202 / -17 / 5 @ 10:46:00 AM RV : 41 / 3 / 12 @ 10:01:00 AM PA : 37 / 21 ( 28 ) @ 10:00:00 AM 39 / 18 ( 26 ) @ 10:01:00 AM RA : a wave = 16 v wave = 16 mean = 13 @ 10:01:00 AM PCW : a wave = 31 v wave = 29 mean = 23 @ 9:59:00 AM O2 Content Phase:Rest PA : O2 Content O2: 64.4 @ 10:44:00 AM Saturations Phase:Rest AO : 95 @ 10:31:00 AM PA : 64 @ 10:44:00 AM Cardiac Output Phase:Rest Sherrie : 4 @ 11:05:45 AM Sherrie Cardiac Index: 2 @ 11:05:45 AM Flow Phase:Rest Qp : 4 @ 11:05:45 AM Qs : 4 @ 11:05:45 AM Valves Phase:DefaultPhase AV : 82.0 @ 11:05:45 AM 82.0 @ 11:05:45 AM AV Mean Gradient: 50.0 @ 11:05:45 AM 50.0 @ 11:05:45 AM AV Flow: 320 @ 11:05:45 AM AV Area: 1.0 @ 11:05:45 AM AV Area Index: 0.46 @ 11:05:45 AM Clinical Evaluation EBL: 5mL-10mL Procedural Details Pre-Procedure Time Out. Identified patient by full name and date of as verbalized by the patient/guarantor. Does the consent match the physician's order: Yes. Accurate & Complete Informed Consent: Yes. Inpatient/Outpatient History & Physical on Chart: Yes. If H&P is completed, is and addenduem needed: No; If yes, is the addendum complete: N/A. Visualize and Verify Site with Patient/Guarantor: N/A. Pre-op teaching completed and patient verbalized understanding. The risks, benefits, and alternatives of sedation and/or procedure were discussed by physician. The patient agrees to continue. Procedure started. [facility] Clinical Fraility Score: 4: Vulnerable. Proposal Consultant Indications: Valvular Disease, Severe Aortic Valve Stenosis. Chest Pain Symptom Assessment: Asymptomatic. Correct patient, site and procedure confirmed by cath team. Current diagnosis: Severe Aortic Valve Stenosis. PERRLA. 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 Lungs clear x 5 lobes. IV Site on Arrival: 20 gauge in the left forearm. IV Site on Arrival: 20 gauge in the right anticubital. IV Fluids: 0.9% NaCl at 75ml/hr. 0 mL infused prior to photographic laboratory technician. Pre Procedural Pulses: bilateral radial was 2+. Pre Procedural Pulses: bilateral dorsalis pedis was 3+. Pre Procedural Pulses: bilateral posterior tibial was 2+. right brachial was prepped with chloroprep then draped in the usual sterile fashion. right radial was prepped with chloroprep then draped in the usual sterile fashion. right groin was prepped with chloroprep then draped in the usual sterile fashion. Physician notified. Baseline sample Acquired. HR: 53 BPM. Physician arrived. Admit Source: Out Patient. Physician scrubbed in. Immediate Pre-Procedure Time Out. Correct Patient: Yes; Correct Procedure: Yes; Correct Site: Yes; Correct Patient Position: Yes; Correct Supplies: Yes; Dried Flammable Prep: Yes; Blood Products Available: N/A;. Lidocaine 1% infiltrated to the right brachial. Superior-Evelyne MON catheter inserted. Pressure measurements obtained. Oximetry samples were obtained. Normal venous range: 60-85%. Normal arterial range: 95-100%. Superior-Evelyne out. Lidocaine 1% infiltrated to the right radial. Arterial access obtained. A 5 prydeinig TIG catheter in over wire. Multiple views taken of left coronary artery. Oxygen started at 2liters/min via nasal canula. Catheter removed over the exchange wire. A 5 prydeinig JR4 catheter in over wire. Unable to engage JR 4 catheter. Catheter removed over the exchange wire. A TR Band was successful obtaining hemostatsis at the Right Radial artery insertion site. Lidocaine 1% infiltrated to the right groin. Arterial access obtained with micropuncture set. Glidewire advanced through 6 fr sheath. 6fr short sheath exchanged for 6fr 55cm flexor sheath over the glidewire. Glidewire out. A 5 prydeinig JR4 catheter in over exchange wire. Multiple views taken of right coronary artery. Glidewire in through JR 4 catheter. Catheter removed over the glide wire. A 5 prydeinig AL1 catheter in over glidewire, seated in left ventricle. Glidewire out. Exchange wire advanced through AL1 catheter. Catheter removed over the exchange wire. A 6 prydeinig [place] catheter in over wire. Exchange wire out. Gradient taken: LV 202/-18,5; AO 120/64(92); Mean: 50mmHg, Peak to Peak: 82mmHg, SEP: 13sec/min; HR: 61 BPM; SpO2: 97%. Ruben catheter out over exchange wire. Exchange wire out. ACT drawn. Results 172 seconds. Therapeutic limits - pre-heparin administration 90-150 seconds and monitoring heparin during a vascular procedure >250 seconds. 6fr flexor sheath exchanged for 6fr short sheath over glidewire. A 6 prydeinig Angled Pig catheter in over wire. Wire and catheter out. A Right femoral angiogram was performed to determine safe placement of closure device. Post Procedure: Pulses reassessed and unchanged. PERRLA. 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 No VTE prophylaxis required. Medication's Wasted: Nitro = 49.8 mg, Heparin 4000 unit. Total IV fluids: 300mL. A Suture was successful obtaining hemostatsis at the Right Femoral artery insertion site. A Manual Compression was successful obtaining hemostatsis at the Right Brachial Vein insertion site. Sheath(s) sutured into position with 2-0 silk and sterile 4x4's and Op-site applied over the site. No oozing or signs and symptoms of hematoma noted. Arterial sheath flushed and connected to tranducer and pressure bag with heparinized saline. Post-op diagnosis: Severe Aortic Valve Stenosis, Severe Multivessel CAD. Complications: None. Estimated blood loss: 5mL-10mL. Responsiveness - Normal response to verbal stimuli; alert and oriented, PERRLA. Airway - Unaffected, no intervention required; spontaneous ventilation. Circulation: W/N/L, pulses unchanged. Physician scrubbed out. Physician updated family. Nausea/Vomiting: N/A. Procedure completed. Patient transferred by bed to CPRU. Vital chart was stopped. Access Site Site: Right Brachial Vein Sheath Size: 6 Fr Hemostasis Method: Manual Compression Hemostasis Success: Successful Site: Right Radial artery Sheath Size: 6 Fr Hemostasis Method: TR Band Hemostasis Success: Successful Site: Right Femoral artery Sheath Size: 6 Fr Hemostasis Method: Suture Hemostasis Success: Successful Procedure Medications Start: 9:56 AM Stop: 9:56 AM Medication: Versed Amount: 1 mg Route: I.V. Start: 9:56 AM Stop: 9:56 AM Medication: Fentanyl Amount: 50 mcg Route: I.V. Start: 10:04 AM Stop: 10:04 AM Medication: Nitrogylcerin Amount: 200 mcg Route: I.A. Start: 10:07 AM Stop: 10:07 AM Medication: Heparin Amount: 2000 units Route: I.V. Start: 10:11 AM Stop: 10:11 AM Medication: Heparin Amount: 2000 units Route: I.V. Start: 10:59 AM Stop: 10:59 AM Medication: Versed Amount: 1 mg Route: I.V. Start: 10:59 AM Stop: 10:59 AM Medication: Fentanyl Amount: 50 mcg Route: I.V. I, the attending physician, have reviewed and verified all procedure medications. Yes, all medications given per verbal order History/Risk Factors Hypertension: Yes Dyslipidemia: No Peripheral Arterial Disease (PAD): Yes Myocardial Infarction (AZ): No Obesity: No Renal Disease: No Tobacco Use: Former Prior Interventions PCI: No CABG: No Valve Surgery: No Report Signatures Finalized by Gordon Johnson MD on 07/12/2022 09:31 AM
[2022-07-07 07:06] LABS: Glucose Point of Care 273 mg/dL (70-110)
[2022-07-07 07:10] LABS: Basophils # 0.1 10^3/uL (0.0-0.1); Basophils % 1.3 %; Eosinophils # 0.3 10^3/uL (0.0-0.8); Eosinophils % 4.2 %; Hematocrit 42.8 % (42.0-52.0); Hemoglobin 14.5 g/dL (11.7-16.6); Lymphocytes # 1.2 10^3/uL (0.8-4.8); Lymphocytes % 16.6 %; Mean Corpuscular HGB Conc 33.9 g/dL (30.0-36.0); Mean Corpuscular Hemoglobin 34.8 pg (28.0-34.0); Mean Corpuscular Volume 102.6 fl (80-94); Mean Platelet Volume 11.5 fL (7.4-10.4); Monocytes # 0.9 10^3/uL (0.2-0.9); Monocytes % 12.2 %; Neutrophils # 4.83 10^3/uL (1.8-7.7); Neutrophils % 64.9 %; Nucleated Red Blood Cells % 0 %; Platelet Count 203 10^3/cmm (130-400); Red Blood Count 4.17 10^6/uL (4.1-5.3); Red Cell Distribution Width 12.2 % (12.1-15.1); White Blood Count 7.5 10^3/uL (4.0-10.0)
[2022-07-07 07:35] LABS: Anion Gap 16.2 (5-19); Blood Urea Nitrogen 20 mg/dL (8-23); Calcium 8.8 mg/dL (8.5-10.5); Carbon Dioxide 24 mmol/L (22-29); Chloride 101 mmol/L (98-107); Glucose 237 mg/dL (65-115); Osmolality Calculated 294 mOsm/kg (285-295); Potassium 4.2 mmol/L (3.5-5.1); Sodium 137 mmol/L (136-145)
[2022-07-07] MEDS: aspirin 325 mg Tablet PO (08:05)
[2022-07-07] MEDS: diphenhydrAMINE 50 mg Capsule PO (08:05)
--- NOTE | 2022-07-07 09:47 | W.PM.OPSUD ---
Surgery/Procedure H&P Update DATE OF PROCEDURE: July 07, 2022 DATE H&P PERFORMED: 07/01/22 H&P UPDATE INFORMATION: I have reviewed H&P completed within last 30 days, I have examined patient prior to procedure and No changes to prior documentation PREOP DIAGNOSIS: Severe aortic stenosis PRIMARY INDICATION FOR PROCEDURE: Severe aortic stenosis PLANNED PROCEDURE: Operation Date: 07/07/22 07:00 Proposed Procedures p right and left heart cath 72354,I35.0(Bilateral) - Gordon Johnson M.D Possible percutaneous coronary intervention PATIENT REASSESSED PRIOR TO SEDATION, WITH NO CHANGE NOTED: Yes PHYSICAL EXAM: alert, oriented x 3, clear to auscultation bilaterally and regular rate & rhythm AIRWAY EVAL/ANESTHESIA PLAN: normal airway, ASA III, Local Anesthesia, Risks, benefits & alternatives of sedation and/or procedure discussed and Patient agrees to continue as planned ADDITIONAL INFORMATION: Moderate sedation
[2022-07-07 10:12] LABS: Alveolar-Arterial Oxygen Gradi 8.7 mmHg (5-10); Arterial Blood Gas Hematocrit 45.8 % (42-52); Blood Gas Allen Test Pos; Carboxyhemoglobin 1.3 %THgb (0.4-20.1); HGB O2 Sat 63.3 % (95-100); Methemoglobin 0.4 % (0.4-1.5); Total Hemoglobin 14.9 g/dL (14-18)
[2022-07-07 10:13] LABS: Blood Gas Operator Identificat MONRO; Blood Gas Sample Site Not specified; Blood Gas Sample Type Not specified
[2022-07-07 10:15] LABS: Blood Gas Allen Test Pos; Blood Gas Operator Identificat MONRO; Blood Gas Sample Site Not specified; Blood Gas Sample Type Not specified; Carboxyhemoglobin 1.1 %THgb (0.4-20.1); HGB O2 Sat 93.3 % (95-100); Methemoglobin 0.2 % (0.4-1.5)
--- NOTE | 2022-07-07 11:05 | PC.NURSE ---
Recovery Note Pt arrived from laboratory associate to CPRU 3 for recovery. Pt awake and oriented, breathing even and non-labored on 2L NC. Pt denies pain. Pt placed on bedside cardiac rehab nurse. Rhythm a-fib. Pt has TR band to right radial, right groin sheath sutured in place with pressure bag. Right brachial vein has compression bandage. All sites asymptomatic, no bleeding or hematoma noted. All pulses palpable . Family at bedside, Dr. Johnson at bedside discussing cath findings. Call light within reach. Will continue to monitor.
--- NOTE | 2022-07-07 11:26 | PC.NURSE ---
IV fluid orders Dr. Johnson at bedside updating family. Clarified post cath fluid orders RBVO for NS to infuse at 50ml/hr until discharge.
--- NOTE | 2022-07-07 13:15 | PC.NURSE ---
Right groin sheath pulled at 1240, manual firm pressure held for 30 minutes until hemostasis acheived. No signs of bleeding or hematoma. Pt tolerated well, see vital signs flowsheet. Distal pulses palpable. 4X4 gauze dressing and tegaderm placed over site. Pt and educated on reportable signs and symptoms, bedrest and activity restrictions. Pt and verbalized understanding.
--- NOTE | 2022-07-07 13:51 | PC.NURSE ---
Pt transferred to room 112-1 via bed. Briseyda Verma RN called report to SHERI Bautista. and belongings with patient.
== END 2022-07-07 19:00 | disposition home or self-care (01) ==
LOC: CCL 06:18 → CSU 13:51
PROVIDERS: PCP Family Medicine; Visit Provider Internal Medicine
DX: I25.10 Atherosclerotic heart disease of native coronary artery without angina pectoris (principal); I35.0 Nonrheumatic aortic (valve) stenosis; I10 Essential (primary) hypertension; I73.9 Peripheral vascular disease, unspecified; Z87.891 Personal history of nicotine dependence; E11.9 Type 2 diabetes mellitus without complications; I48.91 Unspecified atrial fibrillation; Z79.01 Long term (current) use of anticoagulants; Z79.82 Long term (current) use of aspirin; J44.9 Chronic obstructive pulmonary disease, unspecified
CPT/HCPCS: 36415; 36416; 80048; 82810; 82962; 85025; 85347; 93460; 96361; 96365; 99152; 99153; C1751; C1769; C1887; C1894; J1644; J2250; J3010; J3490; J7030; Q0163; Q9967

== ENCOUNTER → 2022-07-14 15:54 | Outpatient (BNVA) | payer OTHER, SELFPAY | PROVIDERS: PCP Family Medicine; Visit Provider Nurse Practitioner Family | DX: I25.10 Atherosclerotic heart disease of native coronary artery without angina pectoris (principal) | CPT/HCPCS: 36415; 80048; 99214 ==

== ENCOUNTER 2022-08-13 16:18 | Outpatient (CLI) | payer OTHER, SELFPAY ==
[2022-08-13 16:45] LABS: INR 1.49 (0.8-1.2)
== END 2022-08-13 16:19 | disposition home or self-care (01) ==
LOC: LAB 16:21
PROVIDERS: PCP Family Medicine; Visit Provider Thoracic Surgery (Cardiothoracic Vascular Surgery)
DX: I35.9 Nonrheumatic aortic valve disorder, unspecified (principal)
CPT/HCPCS: 85610

== ENCOUNTER 2022-08-17 10:16 | Outpatient (CLI) | payer OTHER, SELFPAY ==
[2022-08-17 10:56] LABS: INR 2.66 (0.8-1.2)
== END 2022-08-17 10:17 | disposition home or self-care (01) ==
LOC: LAB 10:21
PROVIDERS: PCP Family Medicine; Visit Provider Thoracic Surgery (Cardiothoracic Vascular Surgery)
DX: I35.0 Nonrheumatic aortic (valve) stenosis (principal)
CPT/HCPCS: 85610

== ENCOUNTER 2022-08-20 18:39 | Emergency (ER) | payer OTHER, SELFPAY ==
[2022-08-20 18:40] VITALS: BP 131/63; PULSE 69; RESP 28; TEMP 38.6; O2SAT 94
--- NOTE | 2022-08-20 19:00 | XRR_ITS ---
PROCEDURE INFORMATION: Exam: XR Chest Exam date and time: 08/20/2022 7:12 PM Age: 77 years old Clinical indication: Cough and fever; Prior surgery; Surgery date: <1 month; Surgery type: Open heart; Additional info: Fever cough SOB TECHNIQUE: Imaging protocol: Radiologic exam of the chest. Views: 1 view. COMPARISON: CR XR chest 1V portable [id number] 02/25/2021 6:19 PM FINDINGS: Tubes, catheters and devices: Patient has had an interval median sternotomy and placement of a left atrial appendage occlusion device. Lungs: Interval development of patchy left lingular and left lower lobe atelectasis versus pneumonia. Pleural spaces: Interval development of a small left pleural effusion. No pneumothorax. Heart/Mediastinum: Stable mild enlargement of the cardiac silhouette. Bones/joints: Unremarkable for age. XR/XR chest 1V portable [id number] IMPRESSION: 1. Interval development of patchy left lingular and left lower lobe atelectasis versus pneumonia with a small left pleural effusion. Recommend followup chest imaging to insure resolution of these findings. 2. Patient has had an interval median sternotomy and placement of a left atrial appendage occlusion device. 3. Incidental/nonacute findings are listed in the report.
--- NOTE | 2022-08-20 19:00 | ECG_ITS ---
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 Measurements Intervals Sullivan Rate: 62 P: 0 AR: 0 QRS: 76 QRSD: 115 T: -60 QT: 411 QTc: 420 Interpretive Statements ATRIAL FIBRILLATION INCOMPLETE RIGHT BUNDLE BRANCH BLOCK [90+ ms QRS DURATION, TERMINAL R IN V1/V2, 40+ ms S IN I/aVL/V4/V5/V6] ST DEVIATION AND MODERATE T-WAVE ABNORMALITY, CONSIDER ANTEROLATERAL ISCHEMIA [-0.1+ mV T-WAVE IN V3-V6] ST DEVIATION AND MODERATE T-WAVE ABNORMALITY, CONSIDER INFERIOR ISCHEMIA [-0.1+ mV T-WAVE IN II/aVF] INTERPRETATION BASED ON A DEFAULT AGE OF 40 YEARS Compared to ECG 02/25/2021 22:04:30 Incomplete right bundle-branch block now present Possible ischemia now present T-wave abnormality still present Electronically Signed On 08-21-2022 7:12:41 CDT by Gordon Johnson M.D. [id number]
[2022-08-20 19:01] VITALS: BP 125/68; PULSE 71; RESP 20; O2SAT 97
--- NOTE | 2022-08-20 19:12 | ED_ITS ---
HPI - Fever General: Chief Complaint: Fever Stated Complaint: FEVER, CHILLS, RECENT OPEN HEART Time Seen by Provider: 08/20/22 18:45 Source: patient and family History of Present Illness: 77-year-old male who is 10 days out from open heart surgery. This was done at [facility] in [place]. He presents with a fever of 101 at home, and chills he says he has been coughing since his surgery. He is brings up some phlegm. Cough does not seem to be worse. His says he has been more short of breath MD elicited complaint: fever Onset (ago): hour(s) Measured temperature: 101.5 F Context: other Exacerbating factors: nothing Relieving factors: nothing Associated symptoms: Reports cough, dysuria, myalgias and short of breath; Deny abdominal pain, flank pain, chest pain, confusion, diarrhea, headache(s), rhinorrhea, stiffness or vomiting Treatments prior to arrival fever: none Review of Systems Card: Denies: chest pain GI: Denies: abdominal pain, vomiting or diarrhea : Reports: dysuria; Denies: flank pain Musc: Denies: neck pain or back pain Skin/Breast: Denies: rash Neuro: Denies: headache(s) or confusion PFSH ED PFSH: Medical History Abdominal aortic aneurysm Aortic stenosis Atherosclerosis of coronary artery Atrial fibrillation Chronic alcohol dependence, continuous -known EtOH abuse -received banana bag on admission -on MVI, folic acid daily -not actively withdrawing, CIWA protocol Chronic back pain COPD (chronic obstructive pulmonary disease) Diabetes mellitus Footdrop Gout Hypertension Intervertebral disc disorder with radiculopathy of lumbosacral region Lumbar stenosis with neurogenic claudication Peripheral vascular disease 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 Barrios on 10/18 -synovial fluid culture prelim negative, anaerobic culture prelim negative Surgical History History of herniorrhaphy History of orthopedic surgery Right shoulder Hx of cholecystectomy Family History Father CAD (coronary artery disease) Social History Smoking and tobacco status: former smoker Alcohol intake: current Alcohol intake frequency: few times a week Household members: spouse Marital status: Current occupational status: retired Physical Exam Const: GENERAL APPEARANCE: cooperative and frail appearing (Mildly) NUTRITIONAL APPEARANCE: overweight ORIENTATION/CONSCIOUSNESS: Yes awake, Yes oriented to person, Yes oriented to place and Yes oriented to time HENMT: COMMON NORMALS: normocephalic, atraumatic and Normal external nose present HEAD & SCALP: normocephalic and atraumatic FACE & SINUS: normal facial exam and face symmetric NOSE: Normal external nose present Eye: COMMON NORMALS: Equal, round and reactive pupils present and EOMs intact bilaterally PUPIL: Yes Equal, round and reactive pupils present Neck/C-Spine: GENERAL: Yes trachea midline Chest: CHEST: Yes Symmetrical chest wall rise OTHER: Chest incision clean. No drainage. No redness. Resp: COMMON NORMALS: normal respiratory effort, No retractions, No use of accessory muscles and clear to auscultation bilaterally AUSCULTATION: clear to auscultation bilaterally Cardio: COMMON NORMALS: regular rate RATE: regular rate RHYTHM: abnormal rhythm irregularly irregular GI: COMMON NORMALS: Normal to inspection, nondistended, normoactive bowel sounds present Extremity: GENERAL: Yes edema Neuro: JENY COMA SCALE: document GCS findings [place] coma scale eye opening: Spontaneous Jeny coma scale verbal response: Orientated Jeny coma scale motor response: Obey commands Jeny coma scale total score: 15 SENSORIUM/ORIENTATION: Yes oriented to person, Yes oriented to place and Yes oriented to time SENSORY EXAM: Yes extremities (intact) Psych: COMMON NORMALS: speech normal SPEECH: Yes normal speech Skin: COMMON NORMALS: no rashes or lesions noted GENERAL SKIN EXAM: no rashes or lesions noted Course Vital Signs: Vital signs: Vital Signs Temperature 101.5 F H 08/20/22 18:40 Pulse Rate 67 08/21/22 00:17 Respiratory Rate 20 H 08/21/22 00:17 Blood Pressure 108/66 08/21/22 00:17 Pulse Oximetry 95 08/21/22 00:17 Oxygen Delivery Me thod 08/20/22 21:09 Oxygen Flow Rate 2 08/20/22 21:09 MDM - Fever Medical Decision Making 77-year-old gentleman who is 10 days out from chest surgery. He had an valve replacement. He presents with a fever. He has been coughing. He is mildly short of breath. His oxygenation has been normal here. His rate is 72, atrial fibrillation. His blood pressure is normal. He is awake and alert. His chest x-ray showed potential lingular infiltrate. Chest CT shows some postop changes. There is a small left pleural effusion. There are some compressive atelectasis with possible pneumonia of the right and left lower lobes. This is more likely atelectasis. He does have a urinary tract infection that is clear on urinaly sis. He has dysuria as well. His white blood cell count is 11.5. Bicarbonate is 19. Lactic acid is minimally elevated at 2.7. He has received IV Zosyn here. He appears stable. Blood cultures are drawn and pending. He will go home on antibiotic coverage. He knows to return for any worsening symptoms Lab Data 08/20/22 18:15 08/20/22 18:15 Radiology Impressions Chest X-Ray 08/20/22 19:00 IMPRESSION: 1. Interval development of patchy left lingular and left lower lobe atelectasis versus pneumonia with a small left pleural effusion. Recommend followup chest imaging to insure resolution of these findings. 2. Patient has had an interval median sternotomy and placement of a left atrial appendage occlusion device. 3. Incidental/nonacute findings are listed in the report. Chest CT 08/20/22 20:03 IMPRESSION: 1. Compressive atelectasis and/or pneumonia in the right and left lower lobes. Recommend clinical correlation. Recommend followup chest imaging to insure resolution of these findings. 2. Mild inflammation in the subcutaneous tissues along the surgical incision anterior to the sternum, anterior mediastinum posterior to the sternum and trace pericardial effusion, findings are felt to be likely secondary to recent surgery. Infection is felt less likely but not completely ruled out, recommend clinical correlation. No evidence for an abscess. 3. There is subcutaneous emphysema anterior to the upper left pectoralis major muscle and a small amount of intramuscular soft tissue edema at the left pectoralis major muscle of uncertain clinical significance. Recommend clinical correlation with possible recent instrumentation or procedure in this area. 4. Stable small layering right pleural effusion. There is now partial loculation of a small/moderate left pleural effusion, pleural fluid extends along the left major fissure and loculated foci of left pleura extend up to the left apex. No evidence for pleural thickening or enhancement. 5. Patient has had an interval median sternotomy with placement of a prosthetic aortic valve. 6. Incidental/nonacute findings are listed in the report. COMMENTS: In the absence of a history or active diagnosis of lung cancer, it is recommended that this patient with emphysema be evaluated for enrollment in a low dose CT lung cancer screening program. ADDENDUM: 08/20/222052 Please note the correction to the original report under soft tissues . The final line stating no acute abnormality in the extrathoracic soft tissues was incorrectly listed. Laboratory Results WBC 11.5 10^3/uL (4.0-10.0) H 08/20/22 18:15 RBC 3.74 10^6/uL (4.1-5.3) L 08/20/22 18:15 Hgb 11.9 g/dL (11.7-16.6) 08/20/22 18:15 Hct 37.7 % (42.0-52.0) L 08/20/22 18:15 MCV 100.8 fl (80-94) H 08/20/22 18:15 MCH 31.8 pg (28.0-34.0) 08/20/22 18:15 MCHC 31.6 g/dL (30.0-36.0) 08/20/22 18:15 RDW 16.6 % (12.1-15.1) H 08/20/22 18:15 Plt Count 369 10^3/cmm (130-400) 08/20/22 18:15 MPV 10.5 fL (7.4-10.4) H 08/20/22 18:15 Neut % (Auto) 92.3 % 08/20/22 18:15 Lymph % (Auto) 4.0 % 08/20/22 18:15 [place] % (Auto) 1.7 % 08/20/22 18:15 Eos % (Auto) 0.3 % 08/20/22 18:15 Baso % (Auto) 0.6 % 08/20/22 18:15 Neut # (Auto) 10.63 10^3/uL (1.8-7.7) H 08/20/22 18:15 Lymph # (Auto) 0.5 10^3/uL (0.8-4.8) L 08/20/22 18:15 [place] # (Auto) 0.2 10^3/uL (0.2-0.9) 08/20/22 18:15 Eos # (Auto) 0.0 10^3/uL (0.0-0.8) 08/20/22 18:15 Baso # (Auto) 0.1 10^3/uL (0.0-0.1) 08/20/22 18:15 Nucleated RBC % (auto) 0 % 08/20/22 18:15 Nucleated RBCs # 0.0 /100WBC 08/20/22 18:15 Sodium 131 mmol/L (136-145) L 08/20/22 18:15 Potassium 4.9 mmol/L (3.5-5.1) 08/20/22 18:15 Chloride 97 mmol/L (98-107) L 08/20/22 18:15 Carbon Dioxide 19 mmol/L (22-29) L 08/20/22 18:15 Anion Gap 19.9 (5-19) H 08/20/22 18:15 BUN 15 mg/dL (8-23) 08/20/22 18:15 Creatinine 1.0 mg/dL (0.7-1.2) 08/20/22 18:15 GFR Calculation Not Reportable 08/20/22 18:15 Glucose 177 mg/dL (65-115) H 08/20/22 18:15 Calculated Osmolality 277 mOsm/kg (285-295) L 08/20/22 18:15 Lactic Acid 3.1 mmol/L (0.5-2.2) H 08/20/22 18:15 Lactic Acid (Sepsis) 2.7 mmol/L (0.5-2.2) H 08/20/22 21:03 Calcium 8.4 mg/dL (8.5-10.5) L 08/20/22 18:15 Total Bilirubin 1.2 mg/dL (0.15-1.2) 08/20/22 18:15 AST 43 U/L (0-40) H 08/20/22 18:15 ALT 21 U/L (0-41) 08/20/22 18:15 Alkaline Phosphatase 273 U/L (40-130) H 08/20/22 18:15 NT-Pro-B Natriuret Pep 2109 pg/mL (0-450) H 08/20/22 18:15 Total Protein 6.9 g/dL (6.6-8.7) 08/20/22 18:15 Albumin 3.1 g/dL (3.5-5.2) L 08/20/22 18:15 Globulin 3.8 g/dL (1.3-4.6) 08/20/22 18:15 Urine Color Yellow (Yellow) 08/20/22 21:11 Urine Appearance Cloudy (CLEAR) A 08/20/22 21:11 Urine pH 5 (5-7) 08/20/22 21:11 Ur Specific [place] 1.005 (1.005-1.030) 08/20/22 21:11 Urine Protein 1+ (Negative) H 08/20/22 21:11 Urine Glucose (UA) Norm (Normal) 08/20/22 21:11 Urine Ketones Negative (Negative) 08/20/22 21:11 Urine Blood 3+ (Negative) H 08/20/22 21:11 Urine Nitrate Positive (Negative) H 08/20/22 21:11 Urine Bilirubin Neg (Negative) 08/20/22 21:11 Urine Urobilinogen Norm mg/dL (Negative) 08/20/22 21:11 Ur Leukocyte Esterase 2+ (Negative) H 08/20/22 21:11 Urine RBC 50-80 /hpf (0-2) H 08/20/22 21:11 Urine WBC >100 /hpf (0-5) H 08/20/22 21:11 Ur Squamous Epith Cells 0-4 /hpf (0-5) H 08/20/22 21:11 Amorphous Sediment Not Reportable 08/20/22 21:11 Urine Bacteria 3+ /hpf (NONE) H 08/20/22 21:11 SARS-CoV-2 Ag (Rapid) negative (Negative) 08/20/22 19:29 Discharge Plan Discharge Patient Disposition: Home Clinical Impression: Urinary tract infection, Pneumonia Condition: Stable Prescriptions: New levofloxacin 750 mg tablet 750 mg PO DAILY 7 Days Qty: 7 0RF No Action alogliptin 25 mg tablet 25 mg PO DAILY Eliquis 5 mg tablet 5 mg PO BID aspirin [Adult Low Dose Aspirin] 81 mg tablet,delayed release (DR/EC) 81 mg PO DAILY carboxymethylcellulose sodium 1 % drops 1 drp ophthalmic (eye) QID PRN (Reason: Dry Eye(S)) digoxin 125 mcg (0.125 mg) tablet 125 mcg PO DAILY xoccecyoxscmu-ES-[id number] 5-10-100 mg/5 mL liquid 10 ml PO Q4H PRN (Reason: Cough) fluticasone propion-salmeterol 100-50 mcg/dose blister with device 1 inh inhalation BID fluticasone propionate 50 mcg/actuation spray,suspension 1 spray intranasal DAILY Rx Instructions: administer into each nostril glipizide 10 mg tablet 20 mg PO BID magnesium oxide 400 mg (241.3 mg magnesium) tablet 400 mg PO DAILY pantoprazole 40 mg tablet,delayed release (DR/EC) 40 mg PO DAILY PRN (Reason: Insomnia) potassium chloride 20 mEq tablet extended release 20 meq PO DAILY fluoride (sodium) 1.1 % paste 1 applic dental DAILY atorvastatin 80 mg tablet 40 mg PO DAILY Rx Instructions: take one-half tab ever evening lisinopril 10 mg tablet 10 mg PO DAILY Qty: 90 3RF thiamine mononitrate (vit B1) [Vitamin B-1 (mononitrate)] 100 mg Tablet 100 mg PO DAILY Qty: 30 0RF multivitamin [Multiple Vitamins] Tablet 1 tab PO DAILY 30 Days Qty: 30 0RF Rx Instructions: PTS STATES THE PT TAKES THIS MEDICATION sennosides [senna] 8.6 mg Tablet 17.2 mg PO BID 30 Days Qty: 120 0RF sertraline 100 mg Tablet 150 mg PO DAILY 30 Days Qty: 30 0RF Rx Instructions: pts states the pt takes this medication diltiazem HCl 240 mg Capsule,Extended Release 24 Hr 240 mg PO QAM Qty: 30 0RF melatonin [Melatin] 3 mg Tablet 3 mg PO BIDPC Qty: 30 0RF Rx Instructions: TAKE 1 TAB 1 HOUR AFTER SUNSET, AND 1 TAB 1 HOUR BEFORE BEDTIME. allopurinol 100 mg Tablet 100 mg PO DAILY 30 Days Qty: 30 0RF Rx Instructions: pts states the pt takes this medication tamsulosin [Flomax] 0.4 mg Capsule 0.4 mg PO QPM 30 Days Qty: 30 0RF Rx Instructions: PTS STATES THE PT TAKES THIS MEDICATION albuterol sulfate [ProAir HFA] 90 mcg/actuation Hfa Aerosol Inhaler 2 puff INHALATION QID PRN (Reason: Shortness Of Breath) Qty: 1 0RF cholecalciferol (vitamin D3) 50 mcg (2,000 unit) Tablet 50 mcg PO DAILY Qty: 30 0RF metformin 1,000 mg tablet 500 mg PO BID Hold Instructions: Resume on 07/09/22. amlodipine 2.5 mg Tablet 2.5 mg PO DAILY Discharge Orders: Discharge ED (Routine); Ordered 08/20/22 Ordered By: David Martinez Referrals: Kaila Mohr MD [Primary Care Provider] - 4-7 days Patient Instructions: Urinary Tract Infection in Men (ED), Pneumonia (ED) Activity Restrictions/Additional Instructions: CAT scan of your chest showed the potential of a minimal early/developing pneumonia. You have a urinary tract infection as well. You were treated with antibiotics for both. We will cover you with antibiotics for the next week for both. Return for continued fever greater than 100 despite 2-3 doses of antibiotics, worsening shortness of breath at any point, chest discomfort, worsening mental status, any other concerning symptoms. Follow-up with your doctor next week. Coding Level of Care Code ED Chairman Ceo for Patrick Baez
[2022-08-20 19:16] LABS: Basophils # 0.1 10^3/uL (0.0-0.1); Basophils % 0.6 %; Eosinophils % 0.3 %; Hematocrit 37.7 % (42.0-52.0); Hemoglobin 11.9 g/dL (11.7-16.6); Lymphocytes # 0.5 10^3/uL (0.8-4.8); Mean Corpuscular HGB Conc 31.6 g/dL (30.0-36.0); Mean Corpuscular Hemoglobin 31.8 pg (28.0-34.0); Mean Corpuscular Volume 100.8 fl (80-94); Mean Platelet Volume 10.5 fL (7.4-10.4); Monocytes # 0.2 10^3/uL (0.2-0.9); Monocytes % 1.7 %; Neutrophils # 10.63 10^3/uL (1.8-7.7); Neutrophils % 92.3 %; Nucleated Red Blood Cells % 0 %; Platelet Count 369 10^3/cmm (130-400); Red Blood Count 3.74 10^6/uL (4.1-5.3); Red Cell Distribution Width 16.6 % (12.1-15.1); White Blood Count 11.5 10^3/uL (4.0-10.0)
[2022-08-20 19:29] LABS: Lactic Sepsis W/Reflex 3.1 mmol/L (0.5-2.2)
[2022-08-20 19:30] VITALS: BP 134/64; PULSE 60; O2SAT 94
[2022-08-20] MEDS: piperacillin-tazobactam 4.5 GM in sodium chloride 0.9% (plus) 50 ML IV (19:45)
[2022-08-20 19:58] LABS: SARS Covid-2 Antigen negative (Negative)
[2022-08-20 20:00] VITALS: BP 121/73; PULSE 68; O2SAT 94
[2022-08-20 20:00] LABS: Alanine Aminotransferase 21 U/L (0-41); Albumin Level 3.1 g/dL (3.5-5.2); Alkaline Phosphatase 273 U/L (40-130); Aspartate Amino Transferase 43 U/L (0-40); Blood Urea Nitrogen 15 mg/dL (8-23); Calcium 8.4 mg/dL (8.5-10.5); Carbon Dioxide 19 mmol/L (22-29); Chloride 97 mmol/L (98-107); Globulin 3.8 g/dL (1.3-4.6); Glucose 177 mg/dL (65-115); NT Pro B Type Natriuretic Pept 2109 pg/mL (0-450); Osmolality Calculated 277 mOsm/kg (285-295); Sodium 131 mmol/L (136-145); Total Bilirubin 1.2 mg/dL (0.15-1.2); Total Protein 6.9 g/dL (6.6-8.7)
[2022-08-20 20:02] LABS: Anion Gap 19.9 (5-19); Potassium 4.9 mmol/L (3.5-5.1)
--- NOTE | 2022-08-20 20:03 | CTR_ITS ---
PROCEDURE INFORMATION: Exam: CT Chest With Contrast; Diagnostic Exam date and time: 08/20/2022 8:20 PM Age: 77 years old Clinical indication: Cough and fever; Prior surgery; Surgery date: <1 month; Surgery type: Cabg and bovine valve; Additional info: Fever cough recent cardiac SX TECHNIQUE: Imaging protocol: Diagnostic computed tomography of the chest with contrast. Sagittal and coronal reformatted images were created and reviewed. Radiation optimization: All CT scans at this facility use at least one of these dose optimization techniques: automated exposure control; mA and/or kV adjustment per patient size (includes targeted exams where dose is matched to clinical indication); or iterative reconstruction. Contrast material: OMNI 350; Contrast volume: 100 ml; Contrast route: INTRAVENOUS (IV); REPORTING DATA: Count of CT and Cardiac NM exams in prior 12 months: This patient has received 0 known CTs and 0 known cardiac nuclear medicine studies in the 12 months prior to the current study. COMPARISON: 1. CT chest w con* [id number] 10/06/2019 4:04 PM 2. CR (CHEST, ) 08/20/2022 7:12 PM RADIATION DOSE METRICS: Total DLP (mGy-cm): 563.95 FINDINGS: Trachea: Tracheobronchial structures are patent. Lungs: Stable mild to moderate paraseptal and centrilobular emphysematous changes in the upper lobes, most pronounced in the right upper lobe with small bulla formation. No pulmonary parenchymal nodules or masses. Compressive atelectasis and/or pneumonia in the right and left lower lobes. Pleural spaces: Stable small layering right pleural effusion. There is now partial loculation of a small/moderate left pleural effusion, pleural fluid extends along the left major fissure and loculated foci of left pleura extend up to the left apex. No evidence for pleural thickening or enhancement. No pneumothorax. Heart: Stable moderate enlargement of the heart. Stable calcification of the mitral valve annulus. Interval placement of a prosthetic aortic valve. Coronary arteries: Moderate atherosclerotic calcification in the coronary arteries. Esophagus: The esophagus is unremarkable. Mediastinal space: No mediastinal hematoma. No pneumomediastinum. Lymph nodes: No lymphadenopathy. Vasculature: Moderate atherosclerotic changes in the visualized arteries. No evidence for aortic aneurysm or aortic dissection. Pulmonary arteries are unremarkable. Pulmonary veins are unremarkable. Liver: Single calcified granuloma in the liver. Gallbladder and bile ducts: Stable findings consistent with a previous cholecystectomy. Pancreas: The visualized pancreas is unremarkable. No pancreatic ductal dilatation. Spleen: Multiple calcified granulomas in the spleen. Adrenal glands: The visualized right and left adrenal glands are unremarkable. Retroperitoneal space: Decreasing fluid and inflammation in the retroperitoneum. Bones/joints: Patient has had an interval median sternotomy. Degenerative changes in the spine and shoulders. Mild inflammation in the subcutaneous tissues along the surgical incision anterior to the sternum, anterior mediastinum posterior to the sternum and trace pericardial effusion, findings are felt to be likely secondary to recent surgery. Infection is felt less likely but not completely ruled out, recommend clinical correlation. Soft tissues: There is subcutaneous emphysema anterior to the upper left pectoralis major muscle and a small amount of intramuscular soft tissue edema at the left pectoralis major muscle of uncertain clinical significance. No acute abnormality in the extrathoracic soft tissues. CT/CT chest w con* [id number] IMPRESSION: 1. Compressive atelectasis and/or pneumonia in the right and left lower lobes. Recommend clinical correlation. Recommend followup chest imaging to insure resolution of these findings. 2. Mild inflammation in the subcutaneous tissues along the surgical incision anterior to the sternum, anterior mediastinum posterior to the sternum and trace pericardial effusion, findings are felt to be likely secondary to recent surgery. Infection is felt less likely but not completely ruled out, recommend clinical correlation. No evidence for an abscess. 3. There is subcutaneous emphysema anterior to the upper left pectoralis major muscle and a small amount of intramuscular soft tissue edema at the left pectoralis major muscle of uncertain clinical significance. Recommend clinical correlation with possible recent instrumentation or procedure in this area. 4. Stable small layering right pleural effusion. There is now partial loculation of a small/moderate left pleural effusion, pleural fluid extends along the left major fissure and loculated foci of left pleura extend up to the left apex. No evidence for pleural thickening or enhancement. 5. Patient has had an interval median sternotomy with placement of a prosthetic aortic valve. 6. Incidental/nonacute findings are listed in the report. COMMENTS: In the absence of a history or active diagnosis of lung cancer, it is recommended that this patient with emphysema be evaluated for enrollment in a low dose CT lung cancer screening program.
[2022-08-20] MEDS: iohexol 350 mg/mL 500 mL Btl (per mL) IV (20:11)
[2022-08-20 21:01] LABS: Reflex Lactate Order REFLEX LACTIC ORDERD
[2022-08-20 21:09] VITALS: BP 132/66; PULSE 69; O2SAT 94
[2022-08-20 21:51] LABS: Lactic Acid level (Lactate) 2.7 mmol/L (0.5-2.2)
[2022-08-20 21:59] LABS: Blood Urine 3+ (Negative); Glucose Urine UA Norm (Normal); Ketones Urine Negative (Negative); Nitrate Urine Positive (Negative); Protein Urine 1+ (Negative); Specific Gravity, Urine 1.005 (1.005-1.030); Urine Appearance Cloudy (CLEAR); Urine Color Yellow (Yellow); pH Urine 5 (5-7)
[2022-08-20 22:00] LABS: Add Urine Microscopic? YES; Bilirubin Urine Neg (Negative); Leukocyte Esterase Urine 2+ (Negative); Urobilinogen Urine Norm (Negative)
[2022-08-20 22:03] LABS: Bacteria Urine 3+ /hpf; RBC Urine 50-80 /hpf (0-2); Squamous Epithelial Cell Urine 0-4 /hpf (0-5); WBC Urine >100 /hpf (0-5)
[2022-08-20 22:04] LABS: Add Urine Culture? Yes
[2022-08-20] MEDS: acetaminophen 325 mg Tablet 650 MG PO (22:09)
[2022-08-21 00:17] VITALS: BP 108/66; PULSE 67; RESP 20; O2SAT 95
--- NOTE | 2022-08-24 17:20 | PC.NURSE ---
This nurse attempted to notify patient of critical lab results via phone. Pt left message on patient and patient's 's phone to call the emergency room.
== END 2022-08-21 00:15 | disposition home or self-care (01) ==
PROVIDERS: Emergency Provider Emergency Medicine; PCP Family Medicine
DX: N39.0 Urinary tract infection, site not specified (principal); J18.9 Pneumonia, unspecified organism; Z79.01 Long term (current) use of anticoagulants; Z79.82 Long term (current) use of aspirin; Z79.84 Long term (current) use of oral hypoglycemic drugs; Z20.822 Contact with and (suspected) exposure to COVID-19; Z87.891 Personal history of nicotine dependence; I25.10 Atherosclerotic heart disease of native coronary artery without angina pectoris; J44.9 Chronic obstructive pulmonary disease, unspecified; E11.9 Type 2 diabetes mellitus without complications; I10 Essential (primary) hypertension
CPT/HCPCS: 36415; 71045; 71260; 80053; 81001; 83605; 83880; 85025; 87040; 87077; 87086; 87150; 87186; 87205; 87426; 93005; 96365; 96366; 99285; J2543; Q9967

== ENCOUNTER 2022-08-25 11:28 | Inpatient (IN) | payer OTHER, SELFPAY ==
[2022-08-25] VITALS (12 sets, daily range): BP systolic 105–132; BP diastolic 67–87; PULSE 56–74; RESP 16–20; TEMP 36.5–37.1; O2SAT 94–98; BMI 27.8
--- NOTE | 2022-08-25 12:32 | ED_ITS ---
HPI - Recheck/Abnormal Lab/Rx General: Chief Complaint: Recheck/Abnormal Lab/Rx Stated Complaint: Abnormal Labs Time Seen by Provider: 08/25/22 11:44 History of Present Illness: In for recheck of abnormal blood cultures and urine culture. Patient had a valve replacement approximately 10 days ago at [facility] in [place]. Approximately 5 days ago he was seen in this ER and diagn osed with pneumonia, urinary tract infection and sent home on Levaquin. Today he was called because of blood and urine cultures came back with an E. coli that was resistant to Levaquin. Patient overall says he is doing much better and has no complaints at this current time. complaint: abnormal lab and needs IV antibiotics Initial visit (ago): day(s) (5 days ago) Initial visit for: other (Pneumonia) Returns today for: called because of abnormal lab/test and needs IV antibiotics Description of abnormal result: 2 out of 4 blood cultures as well as urine culture came back positive for E. coli that is resistant to Levaquin Symptoms since prior visit: no new symptoms and improved Context: called for abnormal lab result Associated symptoms: none Treatments prior to arrival: other (Patient was sent home on 750 mg of Levaquin 1 p.o. daily) Review of Systems General: Reports: 10 or more systems reviewed and unremarkable except in HPI and below Const: Denies: fever(s) or chills Eyes: Denies: change in vision or photophobia ENMT: Denies: throat pain or enlarged tonsils Card: Denies: chest pain, palpitations or irregular heart rhythm Resp: Denies: dyspnea, productive cough or non-productive cough GI: Denies: abdominal pain, nausea, vomiting or diarrhea : Denies: flank pain Musc: Denies: neck pain or back pain Skin/Breast: Denies: rash or pruritus Neuro: Denies: headache(s) or numbness in extremities Psych: Denies: anxiety PFSH ED PFSH: Medical History Abdominal aortic aneurysm Aortic stenosis Atherosclerosis of coronary artery Atrial fibrillation Chronic alcohol dependence, continuous -known EtOH abuse -received banana bag on admission -on MVI, folic acid daily -not actively withdrawing, CIWA protocol Chronic back pain COPD (chronic obstructive pulmonary disease) Diabetes mellitus Footdrop Gout Hypertension Intervertebral disc disorder with radiculopathy of lumbosacral region Lumbar stenosis with neurogenic claudication Peripheral vascular disease 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 Barrios on 10/18 -synovial fluid culture prelim negative, anaerobic culture prelim negative Surgical History History of herniorrhaphy History of orthopedic surgery Right shoulder Hx of cholecystectomy Family History Father CAD (coronary artery disease) Social History Smoking and tobacco status: former smoker Alcohol intake: current Alcohol intake frequency: few times a week Household members: spouse Marital status: Current occupational status: retired Physical Exam Const: COMMON NORMALS: no acute distress, average body habitus, patient oriented x3, no limitations, healthy appearing, alert and well nourished HENMT: COMMON NORMALS: normocephalic, atraumatic, hearing grossly normal bilaterally, external ears normal, Normal external nose present and moist oral mucous membranes HEAD & SCALP: normocephalic and atraumatic NOSE: Normal external nose present EXTERNAL EAR: Yes external ears normal Neck/C-Spine: COMMON NORMALS: full ROM, no lymphadenopathy, supple, no JVD and Thyroid normal THYROID: Thyroid normal Lymph: LYMPHATIC: no lymphadenopathy noted and no lymphedema noted Chest: COMMONS NORMALS: normal inspection of the chest and normal palpation of entire chest wall Resp: COMMON NORMALS: normal respiratory effort, No retractions, No use of accessory muscles and clear to auscultation bilaterally AUSCULTATION: clear to auscultation bilaterally Cardio: COMMON NORMALS: no JVD, regular rate, regular rhythm, S1 normal heart sound present and S2 normal heart sound present RATE: regular rate RHYTHM: regular rhythm HEART SOUNDS: S1 normal heart sound present and S2 normal heart sound present GI: COMMON NORMALS: Normal to inspection, nondistended, normoactive bowel sounds present, Soft to palpation, non-tender, No hepatosplenomegaly present and no masses PALPATION: Yes Soft to palpation and Yes No hepatosplenomegaly present : COMMON NORMALS: Yes no CVA tenderness BLADDER/KIDNEY EXAM: Yes no CVA tenderness Back/Pelvis: COMMON NORMALS: no CVA tenderness Neuro: COMMON NORMALS: patient oriented x3, CN's II-XII intact bilaterally, moves all extremities, no focal motor deficits, no sensory deficits noted and deep tendon reflexes 2+ bilaterally SENSORIUM/ORIENTATION: Yes alert Psych: COMMON NORMALS: mental status grossly normal, Normal thought process present, cooperative, normal affect, speech normal and activity/motor behavior normal SPEECH: Yes normal speech THOUGHT PROCESS: Normal thought process present MDM - Recheck/Abnormal Lab/Rx Medical Decision Making Back to the ER with complaints of abnormal lab work, consistent of positive 2 ou t of 4 blood cultures and urine culture for E. coli that is resistant to Levaquin. Patient recently had a valve replacement approximately 10 to [address] Elizondo at [facility] in [place]. Patient was seen here about 5 days ago diagnosed with pneumonia and sent home on Levaquin. Patient states he is feeling better now than he has in several days. And has no complaints at this moment. Dr. Elizondo was notified and he states from the valve perspective that we can just admit him here for IV antibiotics and he did not give any specific recommendations other than call him if we need any assistance. Dr. Feliciano was consulted and agreed for inpatient admission and to start patient o n meropenem. Differential Diagnosis Unlikely encounter for medication refill, encounter for wound recheck, encounter for recheck of burn, encounter for removal of sutures or warfarin-induced coagulopathy Medical Records I reviewed the patient's medical records. Lab Data I reviewed the patient's lab results. 08/25/22 12:18 08/25/22 12:18 Laboratory Results WBC 9.4 10^3/uL (4.0-10.0) 08/25/22 12:18 RBC 3.86 10^6/uL (4.1-5.3) L 08/25/22 12:18 Hgb 12.4 g/dL (11.7-16.6) 08/25/22 12:18 Hct 38.4 % (42.0-52.0) L 08/25/22 12:18 MCV 99.5 fl (80-94) H 08/25/22 12:18 MCH 32.1 pg (28.0-34.0) 08/25/22 12:18 MCHC 32.3 g/dL (30.0-36.0) 08/25/22 12:18 RDW 16.0 % (12.1-15.1) H 08/25/22 12:18 Plt Count 429 10^3/cmm (130-400) H 08/25/22 12:18 MPV 9.9 fL (7.4-10.4) 08/25/22 12:18 Neut % (Auto) 70.0 % 08/25/22 12:18 Lymph % (Auto) 13.7 % 08/25/22 12:18 Aiken % (Auto) 10.9 % 08/25/22 12:18 Eos % (Auto) 2.5 % 08/25/22 12:18 Baso % (Auto) 1.2 % 08/25/22 12:18 Neut # (Auto) 6.60 10^3/uL (1.8-7.7) 08/25/22 12:18 Lymph # (Auto) 1.3 10^3/uL (0.8-4.8) 08/25/22 12:18 Aiken # (Auto) 1.0 10^3/uL (0.2-0.9) H 08/25/22 12:18 Eos # (Auto) 0.2 10^3/uL (0.0-0.8) 08/25/22 12:18 Baso # (Auto) 0.1 10^3/uL (0.0-0.1) 08/25/22 12:18 Nucleated RBC % (auto) 0 % 08/25/22 12:18 Nucleated RBCs # 0.0 /100WBC 08/25/22 12:18 Sodium 134 mmol/L (136-145) L 08/25/22 12:18 Potassium 4.3 mmol/L (3.5-5.1) 08/25/22 12:18 Chloride 97 mmol/L (98-107) L 08/25/22 12:18 Carbon Dioxide 25 mmol/L (22-29) 08/25/22 12:18 Anion Gap 16.3 (5-19) 08/25/22 12:18 BUN 17 mg/dL (8-23) 08/25/22 12:18 Creatinine 1.2 mg/dL (0.7-1.2) 08/25/22 12:18 GFR Calculation Not Reportable 08/25/22 12:18 Glucose 146 mg/dL (65-115) H 08/25/22 12:18 Calculated Osmolality 282 mOsm/kg (285-295) L 08/25/22 12:18 Calcium 9.0 mg/dL (8.5-10.5) 08/25/22 12:18 Total Bilirubin 0.5 mg/dL (0.15-1.2) 08/25/22 12:18 AST 77 U/L (0-40) H 08/25/22 12:18 ALT 36 U/L (0-41) 08/25/22 12:18 Alkaline Phosphatase 309 U/L (40-130) H 08/25/22 12:18 Total Protein 7.3 g/dL (6.6-8.7) 08/25/22 12:18 Albumin 3.0 g/dL (3.5-5.2) L 08/25/22 12:18 Globulin 4.3 g/dL (1.3-4.6) 08/25/22 12:18 Urine Color Yellow (Yellow) 08/25/22 12:30 Urine Appearance Clear (CLEAR) 08/25/22 12:30 Urine pH 6.5 (5-7) 08/25/22 12:30 Ur Specific Haworth 1.015 (1.005-1.030) 08/25/22 12:30 Urine Protein Trace (Negative) 08/25/22 12:30 Urine Glucose (UA) Norm (Normal) 08/25/22 12:30 Urine Ketones Negative (Negative) 08/25/22 12:30 Urine Blood Neg (Negative) 08/25/22 12:30 Urine Nitrate Negative (Negative) 08/25/22 12:30 Urine Bilirubin Neg (Negative) 08/25/22 12:30 Urine Urobilinogen Neg mg/dL (Negative) 08/25/22 12:30 Ur Leukocyte Esterase Trace (Negative) H 08/25/22 12:30 Amorphous Sediment Not Reportable 08/25/22 12:30 Discharge Plan Discharge Patient Disposition: Admitted As Inpatient Clinical Impression: Bacteremia due to Escherichia coli, Heart valve replaced Condition: Stable Prescriptions: No Action alogliptin 25 mg tablet 25 mg PO DAILY Eliquis 5 mg tablet 5 mg PO BID aspirin [Adult Low Dose Aspirin] 81 mg tablet,delayed release (DR/EC) 81 mg PO DAILY carboxymethylcellulose sodium 1 % drops 1 drp ophthalmic (eye) QID PRN (Reason: Dry Eye(S)) digoxin 125 mcg (0.125 mg) tablet 125 mcg PO DAILY myxiconoakrds-[id number] 5-10-100 mg/5 mL liquid 10 ml PO Q4H PRN (Reason: Cough) fluticasone propion-salmeterol 100-50 mcg/dose blister with device 1 inh inhalation BID fluticasone propionate 50 mcg/actuation spray,suspension 1 spray intranasal DAILY Rx Instructions: administer into each nostril glipizide 10 mg tablet 20 mg PO BID magnesium oxide 400 mg (241.3 mg magnesium) tablet 400 mg PO DAILY pantoprazole 40 mg tablet,delayed release (DR/EC) 40 mg PO DAILY PRN (Reason: Insomnia) potassium chloride 20 mEq tablet extended release 20 meq PO DAILY fluoride (sodium) 1.1 % paste 1 applic dental DAILY atorvastatin 80 mg tablet 40 mg PO DAILY Rx Instructions: take one-half tab ever evening lisinopril 10 mg tablet 10 mg PO DAILY Qty: 90 3RF thiamine mononitrate (vit B1) [Vitamin B-1 (mononitrate)] 100 mg Tablet 100 mg PO DAILY Qty: 30 0RF multivitamin [Multiple Vitamins] Tablet 1 tab PO DAILY 30 Days Qty: 30 0RF Rx Instructions: PTS STATES THE PT TAKES THIS MEDICATION sennosides [senna] 8.6 mg Tablet 17.2 mg PO BID 30 Days Qty: 120 0RF sertraline 100 mg Tablet 150 mg PO DAILY 30 Days Qty: 30 0RF Rx Instructions: pts states the pt takes this medication diltiazem HCl 240 mg Capsule,Extended Release 24 Hr 240 mg PO QAM Qty: 30 0RF melatonin [Melatin] 3 mg Tablet 3 mg PO BIDPC Qty: 30 0RF Rx Instructions: TAKE 1 TAB 1 HOUR AFTER SUNSET, AND 1 TAB 1 HOUR BEFORE BEDTIME. allopurinol 100 mg Tablet 100 mg PO DAILY 30 Days Qty: 30 0RF Rx Instructions: pts states the pt takes this medication tamsulosin [Flomax] 0.4 mg Capsule 0.4 mg PO QPM 30 Days Qty: 30 0RF Rx Instructions: PTS STATES THE PT TAKES THIS MEDICATION albuterol sulfate [ProAir HFA] 90 mcg/actuation Hfa Aerosol Inhaler 2 puff INHALATION QID PRN (Reason: Shortness Of Breath) Qty: 1 0RF cholecalciferol (vitamin D3) 50 mcg (2,000 unit) Tablet 50 mcg PO DAILY Qty: 30 0RF metformin 1,000 mg tablet 500 mg PO BID Hold Instructions: Resume on 07/09/22. amlodipine 2.5 mg Tablet 2.5 mg PO DAILY levofloxacin 750 mg tablet 750 mg PO DAILY 7 Days Qty: 7 0RF Referrals: Kaila Mohr MD [Primary Care Provider] - Coding Level of Care Code ED Cake Former for Patrick Baez
[2022-08-25 12:48] LABS: Basophils # 0.1 10^3/uL (0.0-0.1); Basophils % 1.2 %; Eosinophils # 0.2 10^3/uL (0.0-0.8); Eosinophils % 2.5 %; Hematocrit 38.4 % (42.0-52.0); Hemoglobin 12.4 g/dL (11.7-16.6); Lymphocytes # 1.3 10^3/uL (0.8-4.8); Lymphocytes % 13.7 %; Mean Corpuscular HGB Conc 32.3 g/dL (30.0-36.0); Mean Corpuscular Hemoglobin 32.1 pg (28.0-34.0); Mean Corpuscular Volume 99.5 fl (80-94); Mean Platelet Volume 9.9 fL (7.4-10.4); Monocytes % 10.9 %; Nucleated Red Blood Cells % 0 %; Platelet Count 429 10^3/cmm (130-400); Red Blood Count 3.86 10^6/uL (4.1-5.3); White Blood Count 9.4 10^3/uL (4.0-10.0)
[2022-08-25 13:05] LABS: Alanine Aminotransferase 36 U/L (0-41); Alkaline Phosphatase 309 U/L (40-130); Anion Gap 16.3 (5-19); Aspartate Amino Transferase 77 U/L (0-40); Blood Urea Nitrogen 17 mg/dL (8-23); Carbon Dioxide 25 mmol/L (22-29); Chloride 97 mmol/L (98-107); Globulin 4.3 g/dL (1.3-4.6); Glucose 146 mg/dL (65-115); Osmolality Calculated 282 mOsm/kg (285-295); Potassium 4.3 mmol/L (3.5-5.1); Sodium 134 mmol/L (136-145); Total Bilirubin 0.5 mg/dL (0.15-1.2); Total Protein 7.3 g/dL (6.6-8.7)
[2022-08-25 13:09] LABS: Add Urine Microscopic? YES; Bilirubin Urine Neg (Negative); Blood Urine Neg (Negative); Glucose Urine UA Norm (Normal); Ketones Urine Negative (Negative); Leukocyte Esterase Urine Trace (Negative); Nitrate Urine Negative (Negative); Protein Urine Trace (Negative); Specific Gravity, Urine 1.015 (1.005-1.030); Urine Appearance Clear (CLEAR); Urine Color Yellow (Yellow); Urobilinogen Urine Neg (Negative); pH Urine 6.5 (5-7)
[2022-08-25 13:13] LABS: RBC Urine 0-4 /hpf (0-2); Squamous Epithelial Cell Urine 0-4 /hpf (0-5)
[2022-08-25 13:15] LABS: Bacteria Urine TRACE /hpf
[2022-08-25 13:17] LABS: Mucus Urine TRACE /hpf
[2022-08-25 13:18] LABS: Add Urine Culture? No
[2022-08-25] MEDS: meropenem 1,000 MG in sodium chloride 0.9% (plus) 50 ML 100 MG IV ×2 (13:30→17:43)
--- NOTE | 2022-08-25 13:30 | PC.PHAR ---
pt and pts states [facility] wp [phone] sets up the pts medications-[facility] med list doesnt have atorvastatin 80mg qpm pts states the pt takes ext med history shows last filled 08/12/22 30d/s-ext med history also shows norco 5-325mg q6h prn filled 08/12/22 7d/s [facility] states [facility]-ext med history and pts med list from [facility] shows novolog flexpen ss tid filled 08/12/22 50d/s pt and pts states the pt doesnt use any insulins -
--- NOTE | 2022-08-25 15:33 | PC.NURSE ---
PT REPORT CALLED TO TATI WADE
--- NOTE | 2022-08-25 17:01 | CTR_ITS ---
PROCEDURE INFORMATION: Exam: CT Abdomen And Pelvis Without Contrast Exam date and time: 08/25/2022 9:50 PM Age: 77 years old Clinical indication: Pain; Other: UTI sepsis; Prior surgery; Surgery date: 6+ months; Surgery type: Hernia; Additional info: Sepsis, UTI TECHNIQUE: Imaging protocol: Computed tomography of the abdomen and pelvis without contrast. Radiation optimization: All CT scans at this facility use at least one of these dose optimization techniques: automated exposure control; mA and/or kV adjustment per patient size (includes targeted exams where dose is matched to clinical indication); or iterative reconstruction. REPORTING DATA: Count of CT and Cardiac NM exams in prior 12 months: This patient has received [address] and 0 known cardiac nuclear medicine studies in the 12 months prior to the current study. COMPARISON: CT abdomen pelvis w con* [id number] 07/11/2019 5:24 PM RADIATION DOSE METRICS: Total DLP (mGy-cm): 794.13 FINDINGS: Lungs: Emphysematous changes. Left lower lobe atelectasis versus infiltrate. Pleural spaces: Small left pleural effusion. Heart: Cardiomegaly. Trace pericardial effusion. Coronary arteries: Coronary artery atherosclerotic calcifications. Liver: Normal. No mass. Gallbladder and bile ducts: Gallbladder appears absent. Pancreas: Normal. No ductal dilation. Spleen: Normal. No splenomegaly. Adrenal glands: Normal. No mass. Kidneys and ureters: Horseshoe kidney, normal variant. Right kidney nonobstructing calyceal stone. Perinephric edema likely reflecting renal insufficiency. Stomach and bowel: Diverticulosis without diverticulitis. Appendix: No evidence of appendicitis. Intraperitoneal space: Unremarkable. No free air. No significant fluid collection. Vasculature: Fusiform infrarenal abdominal aortic aneurysm measuring 3.5 cm without rupture. Lymph nodes: Unremarkable. No enlarged lymph nodes. Urinary bladder: Unremarkable as visualized. Reproductive: Unremarkable as visualized. Bones/joints: Unremarkable. No acute fracture. Soft tissues: Unremarkable. CT/CT abdomen pelvis wo con [id number] IMPRESSION: 1. Negative for focal acute inflammatory process in the abdomen or pelvis. 2. Coronary artery atherosclerotic calcifications. 3. Cardiomegaly. 4. Trace pericardial effusion. 5. Small left pleural effusion. 6. Emphysematous changes. 7. Left lower lobe atelectasis versus infiltrate. 8. Gallbladder appears absent. 9. Horseshoe kidney, normal variant. 10. Right kidney nonobstructing calyceal stone. 11. Fusiform infrarenal abdominal aortic aneurysm measuring 3.5 cm without rupture. 12. Diverticulosis without diverticulitis. 13. Perinephric edema likely reflecting renal insufficiency.
--- NOTE | 2022-08-25 17:04 | PM.HP ---
Providers/Chief Complaint Admitting Physician: Faye Feliciano MD Primary Care Provider: Kaila Mohr MD Chief Complaint: Abnormal Labs History of Present Illness Azam Mccabe is a 77 year old male with past medical history of hypertension, atrial fibrillation with chronic anticoagulation with Coumadin, recent history of 5 vessel cardiac bypass with aortic valve replacement at [facility] within last 2 weeks, history of Streptococcus bovis bacteremia back in 2019, type 2 diabetes mellitus who presented to the ER on 08/20 with concerns for fever up to 101 Fahrenheit at home along with chills, cough and dysuria. Patient was diagnosed of pneumonia, blood cultures and urine cultures were taken and sent home on oral Levaquin. Today blood cultures and urine cultures came back positive for ESBL hence he was called back to the ER for admission and further treatment. Patient states he is feeling a lot better since starting antibiotics. He is complaining of dysuria which has been getting better. States cough has been constant since the surgery with mild expectoration. Examination patient sitting comfortably in chair, denies any nausea vomiting, headache, diarrhea, dizziness or chest pain. Review of Systems General: Reports: 10 or more systems reviewed and unremarkable except in HPI and below Const: Denies: fever(s), chills, body aches, change in appetite, change in weight, malaise, night sweats, diaphoresis, change in sleep pattern, daytime sleepiness or snoring Eyes: Denies: change in vision, blurry vision, photophobia, eye discomfort or eye discharge ENMT: Denies: throat pain, enlarged tonsils, hoarseness, mouth pain, oral sores, dry mouth, tinnitus, nasal congestion or post nasal drip Card: Denies: chest pain, palpitations, irregular heart rhythm, edema, swelling of feet/ankles, lightheadedness, syncope, pre-syncope, dyspnea on exertion, orthopnea, leg pain with exertion or acrocyanosis Resp: Denies: dyspnea, productive cough, non-productive cough, wheezing, stridor, pain on inspiration, change in phlegm color, hemoptysis or chest congestion GI: Denies: abdominal pain, nausea, vomiting, hematemesis, coffee ground emesis, dysphagia, heartburn, diarrhea, constipation, bloating, GI cramping, change in bowel habits, pain on defecation, hematochezia or melena : Denies: flank pain, difficulty urinating, dysuria, urinary frequency, urinary urgency, urinary hesitancy, urinary dribbling, difficulty starting urination, change in urine stream, nocturia or hematuria Musc: Denies: neck pain, back pain, extremity pain, joint pain, joint swelling, joint redness, joint stiffness or limited range of motion Neuro: Denies: headache(s), numbness in extremities, weakness in extremities, sensory changes, lack of coordination, difficulty walking, frequent falls, dizziness, vertigo, confusion, Slurred speech present, difficulty communicating thoughts or seizure-like activity Psych: Denies: anxiety, depression, mood swings, panic attacks, hopelessness or irritability Endo: Denies: polyuria, polydipsia, tired all the time, cold intolerance, excessive sweating, flushing or heat intolerance Juan Jose/Lymph: Denies: easy bruising or easy bleeding All/Imm: Denies: tongue swelling, facial swelling or acute wheezing Medications/Allergies Home Medications Medication Instructions Recorded Confirmed Last Taken Type albuterol sulfate 90 mcg/actuation 2 puff inhalation QID PRN 10/10/19 08/25/22 11/11/19 Rx aerosol inhaler (ProAir HFA) Shortness Of Breath #1 unit allopurinol 100 mg tablet 100 mg PO DAILY 30 days #30 tabs 10/10/19 08/25/22 07/06/22 19:00 Rx cholecalciferol (vitamin D3) 50 50 mcg PO DAILY #30 tabs 10/10/19 08/25/22 07/06/22 05:00 Rx mcg (2,000 unit) tablet sennosides 8.6 mg tablet (senna) 17.2 mg PO BID 30 days #120 tabs 10/10/19 08/25/22 Unknown Rx tamsulosin 0.4 mg capsule (Flomax) 0.4 mg PO QPM 30 days #30 caps 10/10/19 08/25/22 07/06/22 19:00 Rx alogliptin 25 mg tablet 25 mg PO DAILY 04/20/21 08/25/22 07/06/22 05:00 History aspirin 81 mg tablet,delayed 81 mg PO QAM 04/20/21 08/25/22 08/25/22 History release (Adult Low Dose Aspirin) atorvastatin 80 mg tablet 80 mg PO QPM 04/20/21 08/25/22 07/06/22 19:00 History digoxin 125 mcg (0.125 mg) tablet 125 mcg PO DAILY 04/20/21 08/25/22 07/07/22 03:30 History glipizide 10 mg tablet 20 mg PO BID 04/20/21 08/25/22 07/06/22 19:00 History magnesium oxide 400 mg (241.3 mg 400 mg PO DAILY 04/20/21 08/25/22 07/07/22 03:30 History magnesium) tablet pantoprazole 40 mg tablet,delayed 40 mg PO DAILY 04/20/21 08/25/22 07/07/22 03:30 History release lisinopril 10 mg tablet 10 mg PO DAILY #90 tabs 02/24/22 08/25/22 07/07/22 03:30 Rx amlodipine 2.5 mg tablet 2.5 mg PO DAILY 07/07/22 08/25/22 07/06/22 19:00 History levofloxacin 750 mg tablet 750 mg PO DAILY 7 days #7 tabs 08/20/22 08/25/22 Unknown Rx acetaminophen 500 mg tablet 1,000 mg PO Q6H PRN Pain 08/25/22 08/25/22 Unknown History diltiazem HCl 240 mg 240 mg PO DAILY 08/25/22 08/25/22 Unknown History capsule,extended release 24 hr, controlled (DILT-XR) furosemide 20 mg tablet 20 mg PO BID 08/25/22 08/25/22 Unknown History metformin 500 mg tablet 1,000 mg PO DAILY 08/25/22 08/25/22 Unknown History metoprolol succinate 25 mg 25 mg PO DAILY 08/25/22 08/25/22 Unknown History tablet,extended release 24 hr multivitamin (One Daily 1 tab PO DAILY 08/25/22 08/25/22 Unknown History Multivitamin tablet) warfarin 3 mg tablet 3 mg PO DAILY 08/25/22 08/25/22 Unknown History Allergies Allergy/AdvReac Type Severity Reaction Status Date / Time niacin Allergy unknown Verified 07/14/22 15:06 PFSH Acute PFSH: Medical History (Updated 08/25/22 @ 17:12 by Jose Castillo MD) Abdominal aortic aneurysm Aortic stenosis Atherosclerosis of coronary artery Atrial fibrillation Chronic alcohol dependence, continuous -known EtOH abuse -received banana bag on admission -on MVI, folic acid daily -not actively withdrawing, CIWA protocol Chronic anticoagulation Chronic back pain COPD (chronic obstructive pulmonary disease) Diabetes mellitus Effusion of right shoulder joint -s/p diagnostic arthroscopy; drain removal on 10/07; suspicion for hemarthrosis as patient on chronic AC so continuing to hold AC -synovial fluid gram stain shows rare WBCs, no organisms; culture prelim negative -Ortho consult by Dr. 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 Barrios on 10/18 -synovial fluid culture prelim negative, anaerobic culture prelim negative Streptococcus bovis infection -08/24 bottles of blood cx (09/30) positive for Strep bovis -with associated sepsis as evidenced by leukocytosis, fever, which has now resolved -subsequent blood cultures negative -continues to be febrile though fever curve is trending down -possibility of OM on CT R shoulder; now s/p diagnostic arthroscopy with minimal debridement and washout. Discussed with Ortho Dr. Barrios and given arthroscopy findings, is unlikely to be OM and no need for MRI currently -continued decrease in CRP (97.3--->55.8) -continue Vanc/Clindamycin (day 6); given bacteremia and joint involvement as well as severe sepsis on presentation, anticipate need for at least 2-4 weeks of dual IV antibiotics from date of first negative blood cx. -no leukocytosis -MARINA negative for vegetations -noted LFTs elevation which has been noted in the past; US abdomen-moderate hepatomegaly and hepatic steatosis; acute hepatitis panel negative -will need colonoscopy to r/o GI source which can be done as outpatient as not persistently bacteremic at this point -UA positive for hematuria and bacteria, urine cx negative -PICC line placed (10/08) for mcfp IV antibiotics -no neuro deficits presently, low suspicion for spinal involvement -may benefit from ID f/u; referral placed for Dr. Feliciano Surgical History (Updated 08/25/22 @ 17:12 by Jose Castillo MD) History of aortic valve replacement History of herniorrhaphy History of orthopedic surgery Right shoulder Hx of cholecystectomy Status post cardiac revascularization with bypass aortocoronary anastomosis of five coronary vessels Family History Father CAD (coronary artery disease) Social History Smoking and tobacco status: former smoker Alcohol intake: current Alcohol intake frequency: few times a week Household members: spouse Marital status: Current occupational status: retired Vitals/I&O/Wt Last Vital Signs Pulse 74 08/25/22 15:58 Resp 16 08/25/22 15:58 BP 123/87 08/25/22 15:58 Pulse Ox 96 08/25/22 15:58 O2 Del Method 08/25/22 15:50 Weight last 48 hrs Weight 92.986 kg Physical Exam Narrative: General: No acute distress, AO x3, healthy, well-nourished HEENT: PERRLA, pupils bilaterally equal and reactive Chest: Bilateral bronchial breath sounds with occasional rhonchi, coarse crackles present in left lower zone, equal good air entry bilaterally, sternotomy wound healing without any drainage, epigastric suture still present CVS: S1-S2 irregularly irregular, no murmurs, no tachycardia, no gallops, no rubs Abdomen: Soft, nontender, no organomegaly, bowel sounds present Neuro: No focal deficits, no facial deformity, AO x3, power 5/5 in all limbs Data 08/25/22 12:18 08/25/22 12:18 Micro: Microbiology 08/25/22 12:29 Blood Culture - Preliminary Blood SPECIMEN COLLECTED 08/25/22 12:18 Blood Culture - Preliminary Blood SPECIMEN COLLECTED A&P Assessment and plan (1) Bacteremia due to Escherichia coli: With ESBL. Blood cultures from 08/20 positive. Source most likely UTI. Urine cultures also growing ESBL E. coli Repeat blood cultures sent. Check MRSA swab, urine Legionella, bacterial antigen, procalcitonin. Check CT abdomen pelvis to rule out obstructive nephropathy. For now start patient on IV meropenem. Dose as per creatinine clearance. Patient will most likely require 2 weeks of IV antibiotics since first negative blood culture. (2) ESBL (extended spectrum beta-lactamase) producing bacteria infection: (3) Urinary tract infection: (4) Status post cardiac revascularization with bypass aortocoronary anastomosis of five coronary vessels: Will request documents from recent OR. Postoperative state. Continue with home dose of aspirin, statin. Check echocardiogram. (5) History of aortic valve replacement: Recently within last 2 weeks with CABG. (6) Hypertension: Goal blood pressure less than 140/90 mmHg. Continue home dose of amlodipine 2.5 mg daily, Cardizem 240 mg oral daily, lisinopril 10 mg oral daily, metoprolol succinate 25 mg oral daily. Continue to monitor and change medications according to goal. Qualifiers: Hypertension type: essential hypertension Qualified Code(s): I10 - Essential (primary) hypertension (7) Atrial fibrillation: Chronic. Continue with home dose of digoxin, Cardizem, metoprolol. Check digoxin levels. Continue with home dose of warfarin. Check INR daily. Qualifiers: Atrial fibrillation type: other persistent Qualified Code(s): I48.19 - Other persistent atrial fibrillation (8) Postoperative state: (9) Chronic anticoagulation: Plan Type 2 diabetes mellitus: Hold off on OHA's. Check A1c. Insulin sliding scale at moderate dose protocol. CODE STATUS: Full code. Cardiac carb consistent diet. Protonix for PUD prophylaxis. Coumadin will suffice as DVT prophylaxis. Attestations Medical Necessity Statement*: Admission for more than 2 midnights for management of ESBL bacteremia with UTI in setting of recent CABG with aortic valve replacement Diagnoses Bacteremia due to Escherichia coli R78.81; B96.20 ESBL (extended spectrum beta-lactamase) producing bacteria infection A49.9; Z16.12 Urinary tract infection N39.0 Status post cardiac revascularization with bypass aortocoronary anastomosis of five coronary vessels Z95.1 History of aortic valve replacement Z95.2 Hypertension I10 Hypertension type: essential hypertension Atrial fibrillation I48.19 Atrial fibrillation type: other persistent Postoperative state Z98.890 Chronic anticoagulation Z79.01
[2022-08-25 17:14] LABS: Glucose Point of Care 109 mg/dL (70-110)
--- NOTE | 2022-08-25 17:20 | USCV_ITS ---
Azam Mccabe Age: 77 Gender: M : 1945 Exam Date: 08/25/2022 19:31 Ordering Phys: Jose Castillo MD Technologist: DENY Exam Location: [facility] [place] Indication: sepsis s/p CABG and bovine AVR two weeks ago. BP: 105 / 67 HR: 60 Rhythm: Atrial fibrillation Technical Quality: Adequate MEASUREMENTS (Male / Female) Normal Values 2D ECHO LV Diastolic Diameter PLAX 3.7 cm 4.2 - 5.9 / 3.9 - 5.3 cm LV Systolic Diameter PLAX 2.4 cm IVS Diastolic Thickness 1.6 cm 0.6 - 1.0 / 0.6 - 0.9 cm IVS Systolic Thickness 2.0 cm LVPW Diastolic Thickness 1.6 cm 0.6 - 1.0 / 0.6 - 0.9 cm LVPW Systolic Thickness 1.7 cm LVOT Diameter 2.1 cm LV Ejection Fraction 2D Teich 64.3 % LV Ejection Fraction MOD 2C 64.1 % LV Ejection Fraction 2C AL 63.4 % LA Diameter 6.0 cm LA Width 4.4 cm LA Height 6.6 cm RA Width 4.6 cm RA Height 5.9 cm Aorta at Sinotubular Diameter 3.5 cm IVC Diameter 2.1 cm M-MODE Aortic Annulus Diameter 3.3 cm LA Ao Ratio MM 1.8 MV E Point Septal Separation 0.5 cm DOPPLER AV Peak Velocity 186.0 cm/s LVOT Peak Velocity 130.0 cm/s AV Area Cont Eq vti 2.9 cm squared AV Area Cont Eq pk 2.5 cm squared MV Peak Velocity 189.0 cm/s MV Area PHT 4.9 cm squared MV E' Velocity 90.0 cm/s Mitral E to MV E' Ratio 22.0 Mitral E to LV E' Lateral Ratio 16.6 Mitral E to LV E' Septal Ratio 32.6 TR Peak Velocity 288.0 cm/s TR Peak Gradient 33.2 mmHg TV Peak E Velocity 62.0 cm/s Right Atrial Pressure 10.0 mmHg Pulmonary Artery Systolic Pressu 43.2 mmHg PV Peak Velocity 136.0 cm/s RV Acceleration Time 0.1 s RV Ejection Time 0.3 s RV AcT/ET 0.3 FINDINGS Left Ventricle Left ventricle is normal in size. LV systolic function is normal with EF of 60 to 65%. No regional wall motion abnormalities are seen. Right Ventricle Normal in size and function Right Atrium Normal in size Left Atrium Dilated Mitral Valve Moderate mitral annular calcification. Echogenic, mobile structure measuring 10x8.3mm is noted attached to anterior mitral valve leaflet. Possibly vegetation vs calcified chordae. Mild mitral regurgitation. Aortic Valve Likely bioprosthetic aortic valve is seen. No signficant stenosis or regurgitation is seen. Tricuspid Valve Trace tricuspid regurgitation. RVSP is 40-45mmHg. This is consistent with mild pulmonary hypertension. Pulmonic Valve Not well visualized Pericardium Normal Aorta Normal in size IVC Appears to be normal CONCLUSIONS LV systolic function is normal with EF of 60 to 60% Left atrial dilation Moderate mitral annular calcification. Echogenic, mobile structure measuring 10 x 8.3 mm noted attached to anterior mitral valve leaflet. Possibly vegetation versus calcified chordae. Mild mitral regurgitation Trace tricuspid regurgitation Mild pulmonary hypertension Compared to prior echocardiogram from 05/2022, patient has a bioprosthetic aortic valve now. There is an echogenic structure attached to anterior mitral valve leaflet. However it is unchanged from prior echocardiograms. Recommend MARINA to better assess the valve. Gordon Johnson MD (Electronically Signed) Final Date: 26 August 2022 10:59 S
[2022-08-25] MEDS: tamsulosin 0.4 mg Capsule PO (17:40)
[2022-08-25] MEDS: FUROsemide 20 mg Tablet PO (17:40)
[2022-08-25] MEDS: atorvastatin 40 mg Tablet 80 MG PO (17:41)
[2022-08-25] MEDS: sennosides 8.6 mg Tablet 17.2 MG PO (17:41)
[2022-08-25 18:12] LABS: Charge for UA Resulting for Rev
[2022-08-25 18:19] LABS: Digoxin 0.6 ng/mL (0.6-1.2)
[2022-08-25 18:24] LABS: Procalcitonin 0.77 ng/mL (0-0.5)
[2022-08-25 18:25] LABS: Thyroid Stimulating Hormone 3.07 uIU/mL (0.27-4.20)
[2022-08-25 18:39] LABS: Bilirubin Urine Neg (Negative); Blood Urine Neg (Negative); Glucose Urine UA Norm (Normal); Ketones Urine 1+ (Negative); Leukocyte Esterase Urine Trace (Negative); Nitrate Urine Negative (Negative); Protein Urine Neg (Negative); Urine Appearance Clear (CLEAR); Urine Color Yellow (Yellow); Urobilinogen Urine Norm (Negative); pH Urine 6 (5-7)
[2022-08-25 18:41] LABS: Add Urine Microscopic? YES
[2022-08-25 21:37] LABS: Glucose Point of Care 152 mg/dL (70-110)
[2022-08-25] MEDS: insulin lispro 100 unit/1 mL SUBCUT (21:45)
[2022-08-25] MEDS: temazepam 15 mg Capsule PO (23:54)
[2022-08-26] VITALS (9 sets, daily range): BP systolic 111–156; BP diastolic 68–97; PULSE 53–73; RESP 15–19; TEMP 36.4–36.9; O2SAT 95–96; BMI 27.8
[2022-08-26] MEDS: meropenem 1,000 MG in sodium chloride 0.9% (plus) 50 ML 100 MG IV ×3 (01:53→17:52)
[2022-08-26 06:09] LABS: Basophils # 0.1 10^3/uL (0.0-0.1); Basophils % 1.5 %; Eosinophils # 0.3 10^3/uL (0.0-0.8); Hematocrit 38.2 % (42.0-52.0); Hemoglobin 12.1 g/dL (11.7-16.6); Lymphocytes # 1.7 10^3/uL (0.8-4.8); Lymphocytes % 17.8 %; Mean Corpuscular HGB Conc 31.7 g/dL (30.0-36.0); Mean Corpuscular Hemoglobin 31.1 pg (28.0-34.0); Mean Corpuscular Volume 98.2 fl (80-94); Monocytes # 1.2 10^3/uL (0.2-0.9); Monocytes % 12.7 %; Neutrophils # 5.97 10^3/uL (1.8-7.7); Neutrophils % 62.1 %; Nucleated Red Blood Cells % 0 %; Platelet Count 401 10^3/cmm (130-400); Red Blood Count 3.89 10^6/uL (4.1-5.3); Red Cell Distribution Width 15.8 % (12.1-15.1); White Blood Count 9.6 10^3/uL (4.0-10.0)
[2022-08-26 06:23] LABS: Estmated Average Glucose 154
[2022-08-26] MEDS: aspirin 81 mg EC Tablet PO (06:23)
[2022-08-26 06:24] LABS: INR 2.14 (0.8-1.2)
[2022-08-26 06:31] LABS: Alanine Aminotransferase 33 U/L (0-41); Albumin Level 2.9 g/dL (3.5-5.2); Alkaline Phosphatase 272 U/L (40-130); Aspartate Amino Transferase 65 U/L (0-40); Blood Urea Nitrogen 18 mg/dL (8-23); Carbon Dioxide 28 mmol/L (22-29); Chloride 100 mmol/L (98-107); Chol HDL Ratio 3.81 mg/dL (1.0-5.00); Cholesterol 99 mg/dL (0-200); Glucose 126 mg/dL (65-115); HDL Cholesterol 26 mg/dL (60-100); LDL Cholesterol Calculated 35 mg/dL (50-129); LDL HDL Ratio 1.35 RATIO (0.00-3.22); Magnesium 1.6 mg/dL (1.7-2.3); Osmolality Calculated 289 mOsm/kg (285-295); Phosphorus 3.5 mg/dL (2.5-4.5); Sodium 138 mmol/L (136-145); Total Bilirubin 0.6 mg/dL (0.15-1.2); Total Protein 6.9 g/dL (6.6-8.7); Triglycerides 191 mg/dL (0-150)
[2022-08-26 06:31] LABS: Glucose Point of Care 127 mg/dL (70-110)
[2022-08-26] MEDS: magnesium oxide 400 mg tablet PO (10:23)
[2022-08-26] MEDS: metoprolol succinate ER (24 HR) 25 mg Tablet PO (10:24)
[2022-08-26] MEDS: amlodipine 5 mg Tablet 2.5 MG PO (10:24)
[2022-08-26] MEDS: sennosides 8.6 mg Tablet 17.2 MG PO ×2 (10:24→17:51)
[2022-08-26] MEDS: lisinopril 10 mg Tablet PO (10:24)
[2022-08-26] MEDS: pantoprazole DR 40 mg Tablet PO (10:24)
[2022-08-26] MEDS: digoxin 125 mcg Tablet PO (10:25)
[2022-08-26] MEDS: dilTIAZem ER (24HR) 240 mg Capsule PO (10:25)
[2022-08-26] MEDS: FUROsemide 20 mg Tablet PO ×2 (10:26→17:52)
[2022-08-26] MEDS: allopurinol 100 mg Tablet PO (10:27)
[2022-08-26 11:12] LABS: Glucose Point of Care 222 mg/dL (70-110)
[2022-08-26] MEDS: insulin lispro 100 unit/1 mL SUBCUT ×2 (11:26→17:50)
[2022-08-26] MEDS: warfarin 3 mg Tablet PO (13:13)
--- NOTE | 2022-08-26 13:30 | PM.PN ---
Subjective Subjective: No acute events overnight. Patient lying comfortably in bed today without any difficulty in breathing. States he is feeling a lot better. Denies any nausea, vomiting, headache, dysuria, abdominal pain. Vitals/I&O/Wt Last Vital Signs Temp 98.1 F 08/26/22 11:16 Pulse 60 08/26/22 11:16 Resp 16 08/26/22 11:16 BP 131/77 08/26/22 11:16 Pulse Ox 95 08/26/22 11:16 O2 Del Method 08/26/22 04:00 08/25/22 08/26/22 08/26/22 22:59 06:59 14:59 Intake Total 580 / 580 550 / 1130 770 / 770 Output Total 400 / 400 925 / 1325 775 / 775 Balance 180 / 180 -375 / -195 -5 / -5 Weight last 48 hrs Weight 92.986 kg Weight 92.986 kg Physical Exam Narrative: General: No acute distress, AO x3, healthy, well-nourished HEENT: PERRLA, pupils bilaterally equal and reactive Chest: Bilateral bronchial breath sounds with occasional rhonchi, coarse crackles present in left lower zone, equal good air entry bilaterally, sternotomy wound healing without any drainage, epigastric suture still present CVS: S1-S2 irregularly irregular, no murmurs, no tachycardia, no gallops, no rubs Abdomen: Soft, nontender, no organomegaly, bowel sounds present Neuro: No focal deficits, no facial deformity, AO x3, power 5/5 in all limbs Data 08/26/22 05:35 08/26/22 05:35 Micro: Microbiology 08/25/22 12:18 Blood Culture - Preliminary Blood NEGATIVE TO DATE 08/25/22 12:29 Blood Culture - Preliminary Blood SPECIMEN COLLECTED A&P Assessment and plan (1) Bacteremia due to Escherichia coli: With ESBL. Blood cultures from 08/20 positive. Source most likely UTI. Urine cultures also growing ESBL E. coli Repeat blood cultures sent. Follow-up repeat blood cultures. MRSA pending. CT abdomen pelvis appreciated. Echocardiogram shows normal EF of 65% with possible mobile echogenicity attached to anterior mitral leaflet which could be vegetation versus calcified chordae. Care discussed in detail with Dr. Johnson who is patient's outpatient seo marketing specialist. If blood cultures persistently remain positive can plan to do MARINA though infective endocarditis less likely given the organism which is atypical and echodensity on mitral valve while aortic valve was replaced. For now start patient on IV meropenem. Dose as per creatinine clearance. Once blood cultures remain negative can plan to discharge on IV or ertapenem 1 g daily for 14-day course. Plan for PICC line. (2) ESBL (extended spectrum beta-lactamase) producing bacteria infection: (3) Urinary tract infection: (4) Status post cardiac revascularization with bypass aortocoronary anastomosis of five coronary vessels: Will request documents from recent OR. Postoperative state. Continue with home dose of aspirin, statin. Appreciate echocardiogram results. Normal EF, left atrial dilatation, possible echogenicity at anterior mitral, mild MR, trace TR, mild pulmonary hypertension. (5) History of aortic valve replacement: Recently within last 2 weeks with CABG. (6) Hypertension: Goal blood pressure less than 140/90 mmHg. Continue home dose of amlodipine 2.5 mg daily, Cardizem 240 mg oral daily, lisinopril 10 mg oral daily, metoprolol succinate 25 mg oral daily. Continue to monitor and change medications according to goal. Qualifiers: Hypertension type: essential hypertension Qualified Code(s): I10 - Essential (primary) hypertension (7) Atrial fibrillation: Chronic. Continue with home dose of digoxin, Cardizem, metoprolol. Continue with home dose of warfarin. Check INR daily. Qualifiers: Atrial fibrillation type: other persistent Qualified Code(s): I48.19 - Other persistent atrial fibrillation (8) Postoperative state: (9) Chronic anticoagulation: Plan Type 2 diabetes mellitus: Hold off on OHA's. Insulin sliding scale at moderate dose protocol. CODE STATUS: Full code. Cardiac carb consistent diet. Protonix for PUD prophylaxis. Coumadin will suffice as DVT prophylaxis. Attestations Medical Necessity Statement*: Requires further hospitalization for management of ESBL bacteremia in a patient with recent CABG and aortic valve replacement Diagnoses Bacteremia due to Escherichia coli R78.81; B96.20 ESBL (extended spectrum beta-lactamase) producing bacteria infection A49.9; Z16.12 Urinary tract infection N39.0 Status post cardiac revascularization with bypass aortocoronary anastomosis of five coronary vessels Z95.1 History of aortic valve replacement Z95.2 Hypertension I10 Hypertension type: essential hypertension Atrial fibrillation I48.19 Atrial fibrillation type: other persistent Postoperative state Z98.890 Chronic anticoagulation Z79.01
[2022-08-26 17:10] LABS: Glucose Point of Care 168 mg/dL (70-110)
[2022-08-26] MEDS: atorvastatin 40 mg Tablet 80 MG PO (17:51)
[2022-08-26] MEDS: tamsulosin 0.4 mg Capsule PO (17:52)
[2022-08-26 21:04] LABS: Glucose Point of Care 142 mg/dL (70-110)
[2022-08-26] MEDS: temazepam 15 mg Capsule PO (22:42)
[2022-08-27] VITALS (9 sets, daily range): BP systolic 100–130; BP diastolic 53–76; PULSE 43–68; RESP 16–18; TEMP 36.3–36.6; O2SAT 92–98
[2022-08-27] MEDS: meropenem 1,000 MG in sodium chloride 0.9% (plus) 50 ML 100 MG IV ×3 (01:46→17:54)
[2022-08-27 05:14] LABS: Basophils # 0.1 10^3/uL (0.0-0.1); Basophils % 1.5 %; Eosinophils # 0.4 10^3/uL (0.0-0.8); Eosinophils % 4.8 %; Hematocrit 38.9 % (42.0-52.0); Hemoglobin 12.3 g/dL (11.7-16.6); Lymphocytes # 1.5 10^3/uL (0.8-4.8); Lymphocytes % 17.2 %; Mean Corpuscular HGB Conc 31.6 g/dL (30.0-36.0); Mean Corpuscular Hemoglobin 31.3 pg (28.0-34.0); Mean Platelet Volume 9.8 fL (7.4-10.4); Monocytes # 1.2 10^3/uL (0.2-0.9); Monocytes % 13.3 %; Neutrophils # 5.39 10^3/uL (1.8-7.7); Neutrophils % 60.4 %; Nucleated Red Blood Cells % 0 %; Platelet Count 403 10^3/cmm (130-400); Red Blood Count 3.93 10^6/uL (4.1-5.3); Red Cell Distribution Width 15.7 % (12.1-15.1); White Blood Count 8.9 10^3/uL (4.0-10.0)
[2022-08-27 05:23] LABS: INR 1.81 (0.8-1.2)
[2022-08-27 05:29] LABS: Alanine Aminotransferase 30 U/L (0-41); Albumin Level 2.9 g/dL (3.5-5.2); Alkaline Phosphatase 239 U/L (40-130); Aspartate Amino Transferase 65 U/L (0-40); Blood Urea Nitrogen 22 mg/dL (8-23); Calcium 8.9 mg/dL (8.5-10.5); Carbon Dioxide 25 mmol/L (22-29); Chloride 101 mmol/L (98-107); Globulin 3.7 g/dL (1.3-4.6); Glucose 169 mg/dL (65-115); Osmolality Calculated 293 mOsm/kg (285-295); Sodium 138 mmol/L (136-145); Total Bilirubin 0.5 mg/dL (0.15-1.2); Total Protein 6.6 g/dL (6.6-8.7)
[2022-08-27 06:19] LABS: Glucose Point of Care 137 mg/dL (70-110)
[2022-08-27] MEDS: aspirin 81 mg EC Tablet PO (06:23)
--- NOTE | 2022-08-27 08:20 | PC.NURSE ---
Midline placed to left basilic vein without difficulty. Pt to have IV antibiotics x 14 days. Risks and benefits discussed with patient prior to procedure and informed consent obtained. Mid-arm circumference measured 10 cm from left AC and noted at 29 cm. Trimmed length of cath 10 cm with 0 cm external length noted. EBL estimated < 5 mL. Report given to charge nurseMary.
[2022-08-27] MEDS: magnesium oxide 400 mg tablet PO (08:58)
[2022-08-27] MEDS: amlodipine 5 mg Tablet 2.5 MG PO (08:58)
[2022-08-27] MEDS: allopurinol 100 mg Tablet PO (08:58)
[2022-08-27] MEDS: dilTIAZem ER (24HR) 240 mg Capsule PO (08:58)
[2022-08-27] MEDS: FUROsemide 20 mg Tablet PO ×2 (08:58→17:54)
[2022-08-27] MEDS: digoxin 125 mcg Tablet PO (08:58)
[2022-08-27] MEDS: metoprolol succinate ER (24 HR) 25 mg Tablet PO (08:58)
[2022-08-27] MEDS: pantoprazole DR 40 mg Tablet PO (08:58)
[2022-08-27] MEDS: lisinopril 10 mg Tablet PO (08:58)
[2022-08-27 11:12] LABS: Glucose Point of Care 274 mg/dL (70-110)
[2022-08-27] MEDS: warfarin 3 mg Tablet PO (13:20)
[2022-08-27] MEDS: insulin lispro 100 unit/1 mL SUBCUT ×2 (13:21→21:48)
[2022-08-27 17:06] LABS: Glucose Point of Care 94 mg/dL (70-110)
[2022-08-27] MEDS: tamsulosin 0.4 mg Capsule PO (17:54)
[2022-08-27] MEDS: sennosides 8.6 mg Tablet 17.2 MG PO (17:54)
[2022-08-27] MEDS: atorvastatin 40 mg Tablet 80 MG PO (17:54)
--- NOTE | 2022-08-27 18:58 | PM.PN ---
Subjective Subjective: Continues to improve. Remains on IV antibiotics. Complaining of discomfort at site of chest wall stitches. Was actually due to be seen in [place] recently but diverted here. Has had a complicated postoperative course with infections. Tired of being in the hospital. Vitals/I&O/Wt Last Vital Signs Temp 97.6 F 08/27/22 15:31 Pulse 54 L 08/27/22 15:31 Resp 17 08/27/22 15:31 BP 101/54 08/27/22 15:31 Pulse Ox 94 08/27/22 15:31 O2 Del Method 08/27/22 15:31 08/27/22 08/27/22 08/27/22 06:59 14:59 22:59 Intake Total 290 / 1590 650 / 650 290 / 940 Output Total 275 / 275 Balance 290 / -235 375 / 375 290 / 665 Weight last 48 hrs Weight 63.957 kg Weight 92.986 kg Physical Exam Narrative: Awake and alert. Sternal scar is healing. Sutures are in place in the lower sternal area x3 with skin and scabs over portions of them. Lungs are clear anteriorly. Regular rhythm. Data 08/27/22 04:44 08/27/22 04:44 Micro: Microbiology 08/25/22 12:29 Blood Culture - Preliminary Blood NEGATIVE TO DATE 08/25/22 17:57 MRSA Culture - Final Nose A&P Assessment and plan (1) Bacteremia due to Escherichia coli: (2) ESBL (extended spectrum beta-lactamase) producing bacteria infection: (3) Urinary tract infection: (4) Status post cardiac revascularization with bypass aortocoronary anastomosis of five coronary vessels: (5) History of aortic valve replacement: (6) Hypertension: Qualifiers: Hypertension type: essential hypertension Qualified Code(s): I10 - Essential (primary) hypertension (7) Atrial fibrillation: Qualifiers: Atrial fibrillation type: other persistent Qualified Code(s): I48.19 - Other persistent atrial fibrillation (8) Postoperative state: (9) Chronic anticoagulation: (10) Diabetes mellitus: Qualifiers: Diabetes mellitus complication status: with hyperglycemia Diabetes mellitus intermediate insulin use: with terminal gauger supervisor use Diabetes mellitus type: type 2 Qualified Code(s): E11.65 - Type 2 diabetes mellitus with hyperglycemia; Z79.4 - FPC (current) use of insulin (11) Gout: (12) S/P PICC central line placement: Plan Continue current antibiotics Working on arranging home IV antibiotic therapy and home health Status post PICC line placement Monitor INR's closely with resumption of Coumadin and antibiotic therapy Daily INR Continue home aspirin, statin, digoxin, diltiazem, Lasix, lisinopril and metoprolol Currently off of home glipizide and metformin On sliding scale insulin, watch blood sugars On home Flomax On home PPI On home allopurinol Still has sutures in place from recent cardiovascular surgery. Will see if were able to get in touch with Dr. Elizondo or covering provider at [facility] tomorrow to clarify if okay to remove sutures while patient is here versus waiting until later follow-up. Add nutritional supplements PT and OT given postsurgical status and prolonged time in hospital of late Attestations Medical Necessity Statement*: Requires ongoing inpatient stay for continued IV antibiotics for ESBL E. coli bacteremia status post recent CABG and valve replacement. Other issues and plans as noted above. and Moderate Time for a total of 35 minutes, includes reviewing past or interval history, examining/interviewing patient, placing orders, discussing plan of care with staff and documenting encounter Diagnoses Bacteremia due to Escherichia coli R78.81; B96.20 ESBL (extended spectrum beta-lactamase) producing bacteria infection A49.9; Z16.12 Urinary tract infection N39.0 Status post cardiac revascularization with bypass aortocoronary anastomosis of five coronary vessels Z95.1 History of aortic valve replacement Z95.2 Hypertension I10 Hypertension type: essential hypertension Atrial fibrillation I48.19 Atrial fibrillation type: other persistent Postoperative state Z98.890 Chronic anticoagulation Z79.01 Diabetes mellitus E11.65; Z79.4 Diabetes mellitus complication status: with hyperglycemia Diabetes mellitus intermediate insulin use: with terminal gauger supervisor use Diabetes mellitus type: type 2 Gout M10.9 S/P PICC central line placement Z95.828
[2022-08-27 21:00] LABS: Glucose Point of Care 211 mg/dL (70-110)
[2022-08-27] MEDS: temazepam 15 mg Capsule PO (21:51)
[2022-08-28] VITALS (7 sets, daily range): BP systolic 112–124; BP diastolic 64–75; PULSE 49–73; RESP 16–20; TEMP 36.4–36.6; O2SAT 95–98
[2022-08-28] MEDS: meropenem 1,000 MG in sodium chloride 0.9% (plus) 50 ML 100 MG IV ×3 (00:26→17:00)
[2022-08-28] MEDS: aspirin 81 mg EC Tablet PO (05:38)
[2022-08-28 05:51] LABS: INR 1.71 (0.8-1.2)
[2022-08-28 06:30] LABS: Glucose Point of Care 213 mg/dL (70-110)
[2022-08-28] MEDS: magnesium oxide 400 mg tablet PO (08:01)
[2022-08-28] MEDS: pantoprazole DR 40 mg Tablet PO (08:01)
[2022-08-28] MEDS: FUROsemide 20 mg Tablet PO ×2 (08:01→17:02)
[2022-08-28] MEDS: allopurinol 100 mg Tablet PO (08:02)
[2022-08-28] MEDS: insulin lispro 100 unit/1 mL SUBCUT ×4 (10:18→21:34)
[2022-08-28 10:47] LABS: Glucose Point of Care 273 mg/dL (70-110)
--- NOTE | 2022-08-28 10:49 | PC.SOCIAL ---
IMM Update pg 2 of IMM updated and reviewed w/ patient. Copy provided and copy dated, initialed and placed in chart.
[2022-08-28] MEDS: warfarin 3 mg Tablet PO ×2 (13:34→13:36)
--- NOTE | 2022-08-28 15:24 | PC.OT ---
OT evaluation completed, OT services not indicated at this time. Nursing notified.
[2022-08-28 16:44] LABS: Glucose Point of Care 163 mg/dL (70-110)
[2022-08-28] MEDS: sennosides 8.6 mg Tablet 17.2 MG PO (17:01)
[2022-08-28] MEDS: tamsulosin 0.4 mg Capsule PO (17:02)
[2022-08-28] MEDS: atorvastatin 40 mg Tablet 80 MG PO (17:02)
[2022-08-28 20:43] LABS: Glucose Point of Care 204 mg/dL (70-110)
--- NOTE | 2022-08-28 22:58 | P.PN_ITS ---
Subjective Subjective: Feels better today but still wanting sutures out. I did attempt to get in touch with cardiothoracic surgery at [facility] today but was not successful. I explained this to the patient. Also reviewed records and have not seen anywhere that anyone documented it was okay to remove the sutures. Told him I cannot remove the sutures at this point out from his surgery without guidance from performing surgeon. He expressed understanding. Did well with therapy and getting up and walking around Vitals/I&O/Wt Last Vital Signs Temp 97.6 F 08/28/22 20:00 Pulse 73 08/28/22 20:00 Resp 17 08/28/22 20:00 BP 114/72 08/28/22 20:00 Pulse Ox 95 08/28/22 20:00 O2 Del Method 08/28/22 15:22 08/28/22 08/28/22 08/28/22 06:59 14:59 22:59 Intake Total 290 / 1230 404 / 404 530 / 934 Output Total 600 / 1175 525 / 525 950 / 1475 Balance -310 / 55 -121 / -121 -420 / -541 Weight last 48 hrs Weight 63.957 kg Physical Exam Narrative: Awake and alert, lungs are clear, regular rhythm. I looked at sutures more clearly. Skin around the sutures is scabbing over, but not at a point where the skin is starting to grow over the sutures. Abdomen is soft, nontender. Data 08/27/22 04:44 08/27/22 04:44 A&P Assessment and plan (1) Bacteremia due to Escherichia coli: (2) ESBL (extended spectrum beta-lactamase) producing bacteria infection: (3) Urinary tract infection: (4) Status post cardiac revascularization with bypass aortocoronary anastomosis of five coronary vessels: (5) History of aortic valve replacement: (6) Hypertension: Qualifiers: Hypertension type: essential hypertension Qualified Code(s): I10 - Essential (primary) hypertension (7) Atrial fibrillation: Qualifiers: Atrial fibrillation type: other persistent Qualified Code(s): I48.19 - Other persistent atrial fibrillation (8) Postoperative state: (9) Chronic anticoagulation: (10) Diabetes mellitus: Qualifiers: Diabetes mellitus type: type 2 Diabetes mellitus residential insulin use: with shake backboard notcher use Diabetes mellitus complication status: with hyperglycemia Qualified Code(s): E11.65 - Type 2 diabetes mellitus with hyperglycemia; Z79.4 - snf (current) use of insulin (11) Gout: (12) S/P PICC central line placement: Plan Plan to stop meropenem overnight and will plan for Invanz tomorrow at once daily dosing Invanz has been ordered for outpatient therapy Home IV antibiotics have been approved and will be available to administer on August 30 Has PICC line PICC Currently maintaining low intensity therapeutic range for INR. With planned change of antibiotics I will continue 3 mg of Coumadin currently. 3 mg as his usual home dose. We will have home health check INR and may require adjustment in dosage at some point Continue home aspirin, statin, digoxin, diltiazem, Lasix, lisinopril and metoprolol Currently off of home glipizide and metformin though anticipate resumption at discharge On sliding scale insulin presently On home Flomax On home PPI On home allopurinol Still has sutures in place from recent cardiovascular surgery. Will again attempt to get in touch with Dr. Elizondo or covering provider at [facility] tomorrow to clarify if okay to remove sutures while patient is here versus waiting until later follow-up. Appreciate PT and OT assistance Likely DC tomorrow if tolerates Invanz and no new issues arise. Attestations Medical Necessity Statement*: Requires ongoing inpatient care will be treated ESBL E. coli urinary infection with bacteremia with appropriate antibiotic coverage. He has been approved for outpatient IV antibiotics in the form of Invanz. He will receive a dose of Invanz tomorrow and if tolerates plan for d ischarge home. Coding Level of Care Code 80958 Moderate Time for a total of 35 minutes, includes reviewing past or interval history, examining/interviewing patient, placing orders, discussing plan of care with staff and documenting encounter Diagnoses Bacteremia due to Escherichia coli R78.81; B96.20 ESBL (extended spectrum beta-lactamase) producing bacteria infection A49.9; Z16.12 Urinary tract infection N39.0 Status post cardiac revascularization with bypass aortocoronary anastomosis of five coronary vessels Z95.1 History of aortic valve replacement Z95.2 Hypertension I10 Hypertension type: essential hypertension Atrial fibrillation I48.19 Atrial fibrillation type: other persistent Postoperative state Z98.890 Chronic anticoagulation Z79.01 Diabetes mellitus E11.65; Z79.4 Diabetes mellitus type: type 2 Diabetes mellitus shake backboard notcher insulin use: with residential use Diabetes mellitus complication status: with hyperglycemia Gout M10.9 S/P PICC central line placement Z95.825
[2022-08-29] VITALS (7 sets, daily range): BP systolic 123–161; BP diastolic 67–85; PULSE 59–81; RESP 16–18; TEMP 36.4–36.9; O2SAT 95–97
[2022-08-29 04:22] LABS: INR 1.66 (0.8-1.2)
[2022-08-29] MEDS: aspirin 81 mg EC Tablet PO (05:34)
[2022-08-29 06:39] LABS: Glucose Point of Care 163 mg/dL (70-110)
[2022-08-29] MEDS: allopurinol 100 mg Tablet PO (08:28)
[2022-08-29] MEDS: amlodipine 5 mg Tablet 2.5 MG PO (08:28)
[2022-08-29] MEDS: magnesium oxide 400 mg tablet PO (08:28)
[2022-08-29] MEDS: pantoprazole DR 40 mg Tablet PO (08:28)
[2022-08-29] MEDS: insulin lispro 100 unit/1 mL SUBCUT ×2 (08:28→13:15)
[2022-08-29] MEDS: metoprolol succinate ER (24 HR) 25 mg Tablet PO (08:29)
[2022-08-29] MEDS: lisinopril 10 mg Tablet PO (08:29)
[2022-08-29] MEDS: FUROsemide 20 mg Tablet PO (08:29)
[2022-08-29] MEDS: sennosides 8.6 mg Tablet 17.2 MG PO (08:29)
[2022-08-29] MEDS: dilTIAZem ER (24HR) 240 mg Capsule PO (08:29)
[2022-08-29] MEDS: digoxin 125 mcg Tablet PO (08:29)
[2022-08-29] MEDS: ertapenem 1,000 MG in sodium chloride 0.9% (plus) 100 ML 200 MG IV (09:49)
[2022-08-29 12:07] LABS: Glucose Point of Care 228 mg/dL (70-110)
[2022-08-29] MEDS: warfarin 3 mg Tablet PO ×2 (13:15)
--- NOTE | 2022-08-29 15:13 | P.DS_ITS ---
Discharge Providers Date of Admission: 08/25/22 13:18 Date of Discharge: August 29, 2022 Attending Provider at Admission: Faye Feliciano MD Attending Provider at Discharge: Jazmin Cody MD Primary Care Provider: Kaila Mohr MD Diagnoses at Discharge Discharge Diagnosis (1) ESBL (extended spectrum beta-lactamase) producing bacteria infection: Details from hospital stay: Secondary to urinary source Status post 3 days of meropenem and 1 day of ertapenem with plan for 14 days of ertapenem outpatient via PICC line Repeat blood cultures are no growth x4 days at the time of discharge. Final report pending. Status: Acute (2) Bacteremia due to Escherichia coli: Status: Acute (3) Urinary tract infection: Status: Inactive (4) Status post cardiac revascularization with bypass aortocoronary anastomosis of five coronary vessels: Details from hospital stay: July [address] Caro melgar [facility] Status: Acute (5) History of aortic valve replacement: Details from hospital stay: July [address] Caro melgar [facility] Status: Chronic Permanent problem details: bioprosthetic (6) Postoperative state: Status: Acute (7) Atrial fibrillation: Details from hospital stay: Chronic diagnosis rate controlled Status: Acute Qualifiers: Atrial fibrillation type: other persistent Qualified Code(s): I48.19 - Other persistent atrial fibrillation (8) Chronic anticoagulation: Details from hospital stay: Had previously been on Eliquis prior to CABG/aortic valve replacement with bioprosthetic valve. Discharged on warfarin. Patient and his are not familiar with it being on the name of the medication. thinks that it may have been prescribed for DVT prophylaxis. They asked about being restarted on Eliquis. Explained that Eliquis is generally not utilized in patients who have had a heart valve replaced and instead they are treated with warfarin. Reviewed with them that warfarin requires monitoring to achieve a therapeutic level. They are not aware of what their goal INR should be. Patient received prescribed dose of warfarin throughout the hospital stay. INR ranged from 1.6- 2.14. This is within the low intensity therapeutic range at our lab. I explained to patient and his that they need to find out what his goal INR should be and the specific indication for it. I wrote a prescription for at least a weekly INR in the interim which can be done via home health. Dose adjustments may be necessary during and after antibiotic therapy is complete. Status: Chronic (9) Hypertension: Status: Acute Qualifiers: Hypertension type: essential hypertension Qualified Code(s): I10 - Essential (primary) hypertension (10) Diabetes mellitus: Status: Chronic Qualifiers: Diabetes mellitus complication status: with hyperglycemia Diabetes mellitus residential insulin use: with residential use Diabetes mellitus type: type 2 Qualified Code(s): E11.65 - Type 2 diabetes mellitus with hyperglycemia; Z79.4 - group home (current) use of insulin (11) Gout: Status: Acute (12) S/P PICC central line placement: Details from hospital stay: Placed on August 26. Will need removed after antibiotic course completed. Status: Acute Reason for Visit Reason for Visit: Abnormal Labs Brief History: As per HPI at admission by Dr Fonseca: Azam Mccabe is a 77 year old male with past medical history of hypertension, atrial fibrillation with chronic anticoagulation with Coumadin, recent history of 5 vessel cardiac bypass with aortic valve replacement at [facility] within last 2 weeks, history of Streptococcus bovis bacteremia back in 2019, type 2 diabetes mellitus who presented to the ER on 08/20 with concerns for fever up to 101 Fahrenheit at home along with chills, cough and dysuria.? Patient was diagnosed of pneumonia, blood cultures and urine cultures were taken and sent home on oral Levaquin. Today blood cultures and urine cultures came back positive for ESBL hence he was called back to the ER for admission and further treatment. Patient states he is feeling a lot better since starting antibiotics.? He is complaining of dysuria which has been getting better.? States cough has been constant since the surgery with mild expectoration. Examination patient sitting comfortably in chair, denies any nausea vomiting, headache, diarrhea, dizziness or chest pain. Hospital Course Hospital Course Patient was admitted to medical bed. He was started on IV meropenem. PICC line was placed on August 26. Case management assisted with arranging home health IV antibiotics in the form of ertapenem IV every 24 hours x2 weeks. He did receive a test dose of ertapenem prior to discharge and tolerated without issue. His previous medications were continued during the hospital stay. He clinically improved and was feeling better. He was seen by physical therapy and did well walking around. He had not been able to follow-up with Dr. Elizondo yet due to hospitalization. He still had sutures in place and requested have them removed. We were able to get an okay from on-call cardiothoracic surgeon at [facility] to remove the sutures. Patient and his were instructed to resume previously recommended postoperative instructions. The necessity of following up with Dr. Elizondo was reviewed. In particular reviewed with him need to learn what the indication for warfarin is and what his goal INR should be. Warfarin is a new medication for Mr. Malloy as he had been on Eliquis prior to CABG and aortic valve replacement. Prescription for at least weekly INRs have been written. Patient and his will follow up with Dr Mohr and if needed call to get an earlier appointment for follow-up with Dr. Johnson if they are not successful at getting clarification regarding warfarin dosage. At the time of discharge INR's were in the low intensity therapeutic range. He has had an INR that was just below low-intensity range and another that was within the moderate intensity therapeutic range since his discharge from [facility] without anticoagulation dosage adjustment. Both patient and his expressed understanding of the importance of clarification for this medication in particular. They have done antibiotics previously during a prior episode of bacteremia and did not have any questions in regards to this. At the time of discharge patient is alert and oriented. His surgical site looks good. Lungs are clear. He has an irregular rhythm. He has been able to walk around without significant symptoms. [place] stable for discharge with outpatient follow-up. Discharge Data Studies Completed and Pending Completed Studies During Hospitalization Category Date Time Status CT abdomen pelvis wo con [id number] Routine Cat Scan 08/25/22 17:01 Completed CV. echo complete* [id number] Routine Ultrasound 08/25/22 17:20 Completed Pending at discharge Category Date Time Status Blood Culture Stat Lab 08/25/22 12:29 Results Prothrombin Time INR AM LABS Lab 08/30/22 04:00 Ordered Prothrombin Time INR AM LABS Lab 08/31/22 04:00 Ordered Radiology Impressions Abdomen/Pelvis CT 08/25/22 17:01 IMPRESSION: 1. Negative for focal acute inflammatory process in the abdomen or pelvis. 2. Coronary artery atherosclerotic calcifications. 3. Cardiomegaly. 4. Trace pericardial effusion. 5. Small left pleural effusion. 6. Emphysematous changes. 7. Left lower lobe atelectasis versus infiltrate. 8. Gallbladder appears absent. 9. Horseshoe kidney, normal variant. 10. Right kidney nonobstructing calyceal stone. 11. Fusiform infrarenal abdominal aortic aneurysm measuring 3.5 cm without rupture. 12. Diverticulosis without diverticulitis. 13. Perinephric edema likely reflecting renal insufficiency. ECHO CONCLUSIONS ?LV systolic function is normal with EF of 60 to 60% ?Left atrial dilation ?Moderate mitral annular calcification.? Echogenic, mobile ?structure measuring 10 x 8.3 mm noted attached to anterior ?mitral valve leaflet.? Possibly vegetation versus calcified ?chordae. ?Mild mitral regurgitation ?Trace tricuspid regurgitation ?Mild pulmonary hypertension ?Compared to prior echocardiogram from 05/2022, patient has a ?bioprosthetic aortic valve now. There is an echogenic structure ?attached to anterior mitral valve leaflet. However it is ?unchanged from prior echocardiograms. Laboratory Results WBC 8.9 10^3/uL (4.0-10.0) 08/27/22 04:44 RBC 3.93 10^6/uL (4.1-5.3) L 08/27/22 04:44 Hgb 12.3 g/dL (11.7-16.6) 08/27/22 04:44 Hct 38.9 % (42.0-52.0) L 08/27/22 04:44 MCV 99.0 fl (80-94) H 08/27/22 04:44 MCH 31.3 pg (28.0-34.0) 08/27/22 04:44 MCHC 31.6 g/dL (30.0-36.0) 08/27/22 04:44 RDW 15.7 % (12.1-15.1) H 08/27/22 04:44 Plt Count 403 10^3/cmm (130-400) H 08/27/22 04:44 MPV 9.8 fL (7.4-10.4) 08/27/22 04:44 Neut % (Auto) 60.4 % 08/27/22 04:44 Lymph % (Auto) 17.2 % 08/27/22 04:44 Andrews % (Auto) 13.3 % 08/27/22 04:44 Eos % (Auto) 4.8 % 08/27/22 04:44 Baso % (Auto) 1.5 % 08/27/22 04:44 Neut # (Auto) 5.39 10^3/uL (1.8-7.7) 08/27/22 04:44 Lymph # (Auto) 1.5 10^3/uL (0.8-4.8) 08/27/22 04:44 Andrews # (Auto) 1.2 10^3/uL (0.2-0.9) H 08/27/22 04:44 Eos # (Auto) 0.4 10^3/uL (0.0-0.8) 08/27/22 04:44 Baso # (Auto) 0.1 10^3/uL (0.0-0.1) 08/27/22 04:44 Nucleated RBC % (auto) 0 % 08/27/22 04:44 Nucleated RBCs # 0.0 /100WBC 08/27/22 04:44 PT 20.20 SECONDS (12.1-14.9) H 08/29/22 03:30 INR 1.66 (0.8-1.2) H 08/29/22 03:30 Sodium 138 mmol/L (136-145) 08/27/22 04:44 Potassium 4.0 mmol/L (3.5-5.1) 08/27/22 04:44 Chloride 101 mmol/L (98-107) 08/27/22 04:44 Carbon Dioxide 25 mmol/L (22-29) 08/27/22 04:44 Anion Gap 16.0 (5-19) 08/27/22 04:44 BUN 22 mg/dL (8-23) 08/27/22 04:44 Creatinine 1.1 mg/dL (0.7-1.2) 08/27/22 04:44 GFR Calculation Not Reportable 08/27/22 04:44 Glucose 169 mg/dL (65-115) H 08/27/22 04:44 POC Glucose 228 mg/dL (70-110) H 08/29/22 11:51 Estimat Average Glucose 154 08/26/22 05:35 Hemoglobin A1c 7.0 % (4.0-6.0) H 08/26/22 05:35 Calculated Osmolality 293 mOsm/kg (285-295) 08/27/22 04:44 Calcium 8.9 mg/dL (8.5-10.5) 08/27/22 04:44 Phosphorus 3.5 mg/dL (2.5-4.5) 08/26/22 05:35 Magnesium 1.6 mg/dL (1.7-2.3) L 08/26/22 05:35 Total Bilirubin 0.5 mg/dL (0.15-1.2) 08/27/22 04:44 AST 65 U/L (0-40) H 08/27/22 04:44 ALT 30 U/L (0-41) 08/27/22 04:44 Alkaline Phosphatase 239 U/L (40-130) H 08/27/22 04:44 Total Protein 6.6 g/dL (6.6-8.7) 08/27/22 04:44 Albumin 2.9 g/dL (3.5-5.2) L 08/27/22 04:44 Globulin 3.7 g/dL (1.3-4.6) 08/27/22 04:44 Triglycerides 191 mg/dL (0-150) H 08/26/22 05:35 Cholesterol 99 mg/dL (0-200) 08/26/22 05:35 LDL Cholesterol, Calc 35 mg/dL (50-129) L 08/26/22 05:35 HDL Cholesterol 26 mg/dL (60-100) L 08/26/22 05:35 LDL/HDL Ratio 1.35 RATIO (0.00-3.22) 08/26/22 05:35 Cholesterol/HDL Ratio 3.81 mg/dL (1.0-5.00) 08/26/22 05:35 Procalcitonin 0.77 ng/mL (0-0.5) H 08/25/22 12:18 TSH 3.07 uIU/mL (0.27-4.20) 08/25/22 12:18 Urine Color Yellow (Yellow) 08/25/22 17:54 Urine Appearance Clear (CLEAR) 08/25/22 17:54 Urine pH 6 (5-7) 08/25/22 17:54 Ur Specific [place] 1.010 (1.005-1.030) 08/25/22 17:54 Urine Protein Neg (Negative) 08/25/22 17:54 Urine Glucose (UA) Norm (Normal) 08/25/22 17:54 Urine Ketones 1+ (Negative) H 08/25/22 17:54 Urine Blood Neg (Negative) 08/25/22 17:54 Urine Nitrate Negative (Negative) 08/25/22 17:54 Urine Bilirubin Neg (Negative) 08/25/22 17:54 Urine Urobilinogen Norm mg/dL (Negative) 08/25/22 17:54 Ur Leukocyte Esterase Trace (Negative) H 08/25/22 17:54 Urine RBC 0-4 /hpf (0-2) H 08/25/22 12:30 Urine WBC 5-10 /hpf (0-5) H 08/25/22 12:30 Ur Squamous Epith Cells 0-4 /hpf (0-5) H 08/25/22 12:30 Amorphous Sediment Not Reportable 08/25/22 12:30 Urine Bacteria Trace /hpf (NONE) 08/25/22 12:30 Urine Mucus Trace /hpf 08/25/22 12:30 Digoxin 0.6 ng/mL (0.6-1.2) 08/25/22 12:18 Laboratory Tests 08/17/22 08/26/22 08/27/22 09:10 05:35 04:44 INR 2.66 H 2.14 H 1.81 H 08/28/22 08/29/22 05:10 03:30 INR 1.71 H 1.66 H Vitals Last Vital Signs Temp 97.6 F 08/29/22 12:00 Pulse 59 L 08/29/22 12:00 Resp 18 08/29/22 12:00 BP 136/73 08/29/22 12:00 Pulse Ox 97 08/29/22 12:00 O2 Del Method 08/28/22 15:22 Discharge Plan Discharge Patient Disposition: Home Health Service Condition: Stable Prescriptions: New ertapenem [Invanz] 1 gram recon soln 1 g IV DAILY 14 Days Qty: 14 0RF Continued alogliptin 25 mg tablet 25 mg PO DAILY aspirin [Adult Low Dose Aspirin] 81 mg tablet,delayed release (DR/EC) 81 mg PO QAM digoxin 125 mcg (0.125 mg) tablet 125 mcg PO DAILY magnesium oxide 400 mg (241.3 mg magnesium) tablet 400 mg PO DAILY pantoprazole 40 mg tablet,delayed release (DR/EC) 40 mg PO DAILY atorvastatin 80 mg tablet 80 mg PO QPM lisinopril 10 mg tablet 10 mg PO DAILY Qty: 90 3RF sennosides [senna] 8.6 mg Tablet 17.2 mg PO BID 30 Days Qty: 120 0RF allopurinol 100 mg Tablet 100 mg PO DAILY 30 Days Qty: 30 0RF tamsulosin [Flomax] 0.4 mg Capsule 0.4 mg PO QPM 30 Days Qty: 30 0RF albuterol sulfate [ProAir HFA] 90 mcg/actuation Hfa Aerosol Inhaler 2 puff INHALATION QID PRN (Reason: Shortness Of Breath) Qty: 1 0RF cholecalciferol (vitamin D3) 50 mcg (2,000 unit) Tablet 50 mcg PO DAILY Qty: 30 0RF amlodipine 2.5 mg Tablet 2.5 mg PO DAILY warfarin 3 mg tablet 3 mg PO DAILY furosemide 20 mg tablet 20 mg PO BID metoprolol succinate 25 mg tablet extended release 24 hr 25 mg PO DAILY metformin 500 mg Tablet 1,000 mg PO DAILY DILT-XR 240 mg Capsule,Ext.Rel 24h Degradable 240 mg PO DAILY Tylenol Ex Str Rapid Release 500 mg Tablet 1,000 mg PO Q6H PRN (Reason: Pain) One Daily Multivitamin Tablet 1 tab PO DAILY Changed glipizide 10 mg tablet 10 mg PO BID Qty: 60 0RF Discontinued levofloxacin 750 mg tablet 750 mg PO DAILY 7 Days Qty: 7 0RF Rx Instructions: for 7 days (rx filled 08/21/22) Discharge Orders: Discharge Order (Routine); Ordered 08/29/22 Ordered By: Jazmin Cody Other Ambulatory Orders: Prothrombin Time INR (Routine) Timeframe: 20220901 Location: Determined by Patient Ordered By: Jazmin Cody Referrals: Zander Elizondo MD [Other] - 2 weeks (For follow up from recent cardiovascular surgery. Has not yet been seen as had been hospitalized in [place], currently on IV antibiotics at home for ESBL bacteremia/UTI. ) [facility] [Outside] ([facility] will be providing your antibiotic. If you have any questions or concerns please contact them at [phone].) [facility] [place], [place] [facility] ([facility]) [Outside] Gordon Johnson M.D [Physician] - 1 month Kaila Mohr MD [Primary Care Provider] - 1 week Discharge Diet: Cardiac Discharge Activity: Increase activity as tolerated Patient Instructions: Opioid Safety Activity Restrictions/Additional Instructions: You presented to the emergency room after being notified that you had blood and urine cultures collected on August 20 that were positive for ESBL E. coli. You had been seen on the with fever, cough and urinary symptoms. ESBL E. coli from both your urine and blood demonstrated resistance to multiple antibiotics including the oral Levaquin you had been sent home on. It was noted to be sensitive to imipenem. You were started on a similar antibiotic called meropenem and treated here in the hospital. Repeat blood cultures were collected. They have been no growth to date. Given recent bypass surgery and valve replacement combined with the ESBL E. coli being in your bloodstream, you will need a course of IV antibiotics to adequately treat this. A PICC line was placed and arrangements have been made for ertapenem IV daily x2 weeks. Home health will follow to assist with management. PICC line will need to be removed at the end of antibiotic treatment. Should you have any recurrent bacteremia, referral to infectious disease will need to be made. Your home medications are being resumed. At the time of discharge, the only changes are a decrease in your glipizide dosing at least temporarily and the addition of IV antibiotic therapy. You have been on warfarin for anticoagulation since your surgery. Your INR here while continuing to receive your Coumadin dosage has been 1.66-2.14. This falls within the low intensity therapeutic range. Please clarify indication for anticoagulation and goal INR with cardiothoracic surgeon/cardiology at follow- up. You will require intermittent lab testing to ensure accurate warfarin dosing. I have ordered for INR testing to be done which can be done via home health to facilitate this. Your remaining external sutures were removed on August 29 after receiving confirmation from on-call cardiothoracic surgeon at [facility]. You must make and keep a new appointment with Dr. Elizondo for your appropriate postoperative follow-up. Please contact Dr. Elizondo's office tomorrow to arrange. Discharge Attestations Time Spent in Discharge Care*: greater than 30 min Specific Discharge Activities: educating patient, educating and/or supporting family/caregiver, discussing with rn field case manager/social workers/dc planners, documenting/other paperwork and evaluating patient/reviewing data Status at Discharge: Cognitive status at discharge: cognitively intact , Behavioral status at discharge: cooperative , Quality Metrics Clinical Quality Measures [ No reported AMI, CVA or VTE this stay] Coding Level of Care Code 25874 Diagnoses ESBL (extended spectrum beta-lactamase) producing bacteria infection A49.9; Z16.12 Bacteremia due to Escherichia coli R78.81; B96.20 Urinary tract infection N39.0 Status post cardiac revascularization with bypass aortocoronary anastomosis of five coronary vessels Z95.1 History of aortic valve replacement Z95.2 Postoperative state Z98.890 Atrial fibrillation I48.19 Atrial fibrillation type: other persistent Chronic anticoagulation Z79.01 Hypertension I10 Hypertension type: essential hypertension Diabetes mellitus E11.65; Z79.4 Diabetes mellitus complication status: with hyperglycemia Diabetes mellitus residential insulin use: with terminal clerk use Diabetes mellitus type: type 2 Gout M10.9 S/P PICC central line placement Z95.828
== END 2022-08-29 17:22 | disposition home health service (06) | DRG 690 ==
LOC: ER 13:18 → MEDSURG 14:57
PROVIDERS: Student in an Organized Health Care Education/Training Program; Admitting Provider Student in an Organized Health Care Education/Training Program; Emergency Provider Emergency Medicine; PCP Family Medicine; Visit Provider Hospitalist
DX: N39.0 Urinary tract infection, site not specified (principal); R78.81 Bacteremia; Z16.12 Extended spectrum beta lactamase (ESBL) resistance; Z16.24 Resistance to multiple antibiotics; I48.19 Other persistent atrial fibrillation; B96.20 Unspecified Escherichia coli [E. coli] as the cause of diseases classified elsewhere; I10 Essential (primary) hypertension; E11.65 Type 2 diabetes mellitus with hyperglycemia; M10.9 Gout, unspecified; I71.40 Abdominal aortic aneurysm, without rupture, unspecified; J44.9 Chronic obstructive pulmonary disease, unspecified; I25.10 Atherosclerotic heart disease of native coronary artery without angina pectoris; E11.51 Type 2 diabetes mellitus with diabetic peripheral angiopathy without gangrene; Z79.4 Long term (current) use of insulin; Z79.01 Long term (current) use of anticoagulants; Z95.1 Presence of aortocoronary bypass graft; Z95.2 Presence of prosthetic heart valve; Z87.891 Personal history of nicotine dependence
CPT/HCPCS: 36415; 36416; 36569; 74176; 80053; 80061; 80162; 81001; 81003; 82962; 83036; 83735; 84100; 84145; 84443; 85025; 85610; 87040; 87641; 93306; 94664; 96372; 96374; 97161; 97165; 97530; 99285; C1751; J1335; J1815; J2185

== ENCOUNTER 2022-08-30 17:43 | Outpatient (CLI) | payer OTHER, SELFPAY ==
[2022-08-30 17:58] LABS: Hematocrit 36.6 % (42.0-52.0); Hemoglobin 11.7 g/dL (11.7-16.6); Mean Corpuscular Hemoglobin 31.6 pg (28.0-34.0); Mean Corpuscular Volume 98.9 fl (80-94); Mean Platelet Volume 10.4 fL (7.4-10.4); Platelet Count 388 10^3/cmm (130-400); Red Cell Distribution Width 15.7 % (12.1-15.1); White Blood Count 8.6 10^3/uL (4.0-10.0)
[2022-08-30 18:25] LABS: Alanine Aminotransferase 35 U/L (0-41); Albumin Level 3.3 g/dL (3.5-5.2); Alkaline Phosphatase 242 U/L (40-130); Anion Gap 12.1 (5-19); Aspartate Amino Transferase 61 U/L (0-40); Blood Urea Nitrogen 25 mg/dL (8-23); Calcium 8.3 mg/dL (8.5-10.5); Carbon Dioxide 24 mmol/L (22-29); Chloride 99 mmol/L (98-107); Globulin 3.5 g/dL (1.3-4.6); Glucose 205 mg/dL (65-115); Osmolality Calculated 282 mOsm/kg (285-295); Potassium 4.1 mmol/L (3.5-5.1); Sodium 131 mmol/L (136-145); Total Bilirubin 0.3 mg/dL (0.15-1.2); Total Protein 6.8 g/dL (6.6-8.7)
[2022-08-30 19:44] LABS: Absolute Eosinophils 0.7 10^3/cmm (0.0-0.7); Absolute Neutrophil 5.1 10^3/cmm (1.4-6.5); Absolute Segmented Neutrophil 5.1 10/cmm (1.6-7.1); Eosinophils 9 %; Lymphocytes 19 %; Lymphocytes Absolute 1.6 10^3/cmm (1.2-3.4); Monocytes Absolute 0.9 10^3/cmm (0.1-0.6); Platelet Estimate Normal (Normal); Segmented Neutrophils 59 %; Total Cells Counted 100 (0-100)
== END 2022-08-30 17:44 | disposition home or self-care (01) ==
LOC: LAB 17:45
PROVIDERS: PCP Family Medicine; Visit Provider Family Medicine
DX: R78.81 Bacteremia (principal); B96.20 Unspecified Escherichia coli [E. coli] as the cause of diseases classified elsewhere; Z16.12 Extended spectrum beta lactamase (ESBL) resistance
CPT/HCPCS: 80053; 85007; 85027

== ENCOUNTER 2022-09-05 19:46 | Inpatient (IN) | payer OTHER, SELFPAY ==
[2022-09-05] VITALS (54 sets, daily range): BP systolic 120–158; BP diastolic 65–95; PULSE 34–63; RESP 13–29; TEMP 36.4; O2SAT 94–98; BMI 29.4; BMI 28.1
--- NOTE | 2022-09-05 20:10 | ECG_ITS ---
[facility] Test Date: 2022-09-05 Pat Name: Azam Mccabe Department: Room: Gender: Male Strategic Debriefing Officer: : 1945 Requested By: David Santiago Order Number: [id number] Bessie MD: Gordon Johnson M.D. Measurements Intervals [facility] Rate: 49 P: 0 ND: 0 QRS: 68 QRSD: 106 T: -78 QT: 433 QTc: 395 Interpretive Statements ATRIAL FIBRILLATION WITH SLOW VENTRICULAR RESPONSE ST DEVIATION AND MODERATE T-WAVE ABNORMALITY, CONSIDER ANTEROLATERAL ISCHEMIA [-0.1+ mV T-WAVE IN V3-V6] ST DEVIATION AND MODERATE T-WAVE ABNORMALITY, CONSIDER INFERIOR ISCHEMIA [-0.1+ mV T-WAVE IN II/aVF] Compared to ECG 08/20/2022 19:02:40 Incomplete right bundle-branch block no longer present T-wave abnormality still present Possible ischemia still present Electronically Signed On 09-06-2022 17:08:59 CDT by Gordon Johnson M.D. [id number]
--- NOTE | 2022-09-05 20:10 | XRR_ITS ---
PROCEDURE INFORMATION: Exam: XR Chest Exam date and time: 09/05/2022 8:22 PM Age: 77 years old Clinical indication: Condition or disease; Other: Afib; Bradycardia; Additional info: Afib, bradycardia TECHNIQUE: Imaging protocol: Radiologic exam of the chest. Views: 1 view. COMPARISON: CT chest w con* [id number] 08/20/2022 8:20 PM FINDINGS: Lungs: Curvilinear atelectasis or scarring at the left lung base. No consolidation. Pleural spaces: Small volume left pleural effusion. No pneumothorax. Heart/Mediastinum: No cardiomegaly. Bones/joints: Sternotomy wires noted. Rotator cuff repair anchor noted within the right humeral head. Visualized osseous structures are intact. XR/XR chest 1V portable [id number] IMPRESSION: Small volume left pleural effusion. Curvilinear atelectasis or scarring at the left lung base.
[2022-09-05 20:31] LABS: Basophils # 0.2 10^3/uL (0.0-0.1); Eosinophils # 0.4 10^3/uL (0.0-0.8); Eosinophils % 4.2 %; Hematocrit 40.4 % (42.0-52.0); Hemoglobin 12.9 g/dL (11.7-16.6); Lymphocytes # 1.7 10^3/uL (0.8-4.8); Lymphocytes % 19.4 %; Mean Corpuscular HGB Conc 31.9 g/dL (30.0-36.0); Mean Corpuscular Hemoglobin 31.7 pg (28.0-34.0); Mean Corpuscular Volume 99.3 fl (80-94); Mean Platelet Volume 11.1 fL (7.4-10.4); Monocytes # 1.1 10^3/uL (0.2-0.9); Monocytes % 12.7 %; Neutrophils # 5.15 10^3/uL (1.8-7.7); Neutrophils % 60.5 %; Nucleated Red Blood Cells % 0 %; Platelet Count 314 10^3/cmm (130-400); Red Blood Count 4.07 10^6/uL (4.1-5.3); Red Cell Distribution Width 15.8 % (12.1-15.1); White Blood Count 8.5 10^3/uL (4.0-10.0)
[2022-09-05 20:38] LABS: INR 1.49 (0.8-1.2)
[2022-09-05 20:39] LABS: Partial Thromboplastin Time 30.9 SECONDS (23.9-36.7)
[2022-09-05 20:46] LABS: Troponin(5th) Baseline 51 ng/L (0-15)
[2022-09-05 20:48] LABS: Alanine Aminotransferase 22 U/L (0-41); Albumin Level 3.9 g/dL (3.5-5.2); Alkaline Phosphatase 194 U/L (40-130); Anion Gap 16.7 (5-19); Aspartate Amino Transferase 36 U/L (0-40); Blood Urea Nitrogen 32 mg/dL (8-23); Calcium 9.1 mg/dL (8.5-10.5); Carbon Dioxide 22 mmol/L (22-29); Chloride 95 mmol/L (98-107); Creatine Phosphokinase 53 U/L (39-308); Globulin 3.7 g/dL (1.3-4.6); Glucose 180 mg/dL (65-115); Osmolality Calculated 279 mOsm/kg (285-295); Potassium 4.7 mmol/L (3.5-5.1); Sodium 129 mmol/L (136-145); Total Bilirubin 0.5 mg/dL (0.15-1.2); Total Protein 7.6 g/dL (6.6-8.7)
[2022-09-05 20:54] LABS: Add Urine Microscopic? NO; Charge for UA Resulting for Rev
--- NOTE | 2022-09-05 21:00 | W.ED.ARRPALP ---
HPI - Arrhythmia/Palpitations General: Chief Complaint: Arrhythmia/Palpitations Stated Complaint: bradycardia Time Seen by Provider: 09/05/22 19:49 Source: patient History of Present Illness: 77-year-old male with a history of atrial fibrillation. He had a recent hospitalization for this. He takes metoprolol and digoxin. He has been feeling somewhat dizzy when getting up from a seated position. He denies any chest pain. Home health was at his home today and noticed that his heart rate was low. He was monitored, with heart rates as low as 35 at home he was told to come to the hospital, and an ambulance was called. He presents with the same symptoms. He is awake and talking blood pressure is normal. Rate is easily excitable to above 50 with conversation, but at rest, he is dipping into the mid 30s. MD complaint: irregular heart beat and atrial fibrillation Onset (ago): hour(s) Duration: constant Severity: moderate Context: occurred during rest Arrhythmia history: atrial fibrillation Associated symptoms: Reports other; Deny anxiety, cough, diaphoresis, nausea, pre-syncope, short of breath, syncope or vomiting Review of Systems Const: Denies: fever(s) or diaphoresis ENMT: Denies: throat pain Card: Reports: irregular heart rhythm; Denies: chest pain, palpitations, syncope or pre-syncope Resp: Denies: dyspnea, productive cough or non-productive cough GI: Denies: abdominal pain, nausea or vomiting Skin/Breast: Denies: rash Neuro: Reports: dizziness; Denies: headache(s) Psych: Denies: anxiety PFS ED PFSH: Medical History Abdominal aortic aneurysm Aortic stenosis Atherosclerosis of coronary artery Atrial fibrillation Chronic alcohol dependence, continuous Chronic anticoagulation Chronic back pain COPD (chronic obstructive pulmonary disease) Diabetes mellitus Footdrop Gout Hypertension Intervertebral disc disorder with radiculopathy of lumbosacral region Lumbar stenosis with neurogenic claudication Peripheral neuropathy Peripheral vascular disease 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 Streptococcus bovis infection 4/4 bottles of blood cx (09/30) positive for Strep bovis in 09/2019, treated with rodent exterminator IV antibiotics Surgical History History of aortic valve replacement bioprosthetic History of arthroscopy of right shoulder diagnostic at time of bacteremia 09/2019 History of herniorrhaphy History of orthopedic surgery Right shoulder Hx of cholecystectomy Status post cardiac revascularization with bypass aortocoronary anastomosis of five coronary vessels Family History Father CAD (coronary artery disease) Social History Smoking and tobacco status: former smoker Alcohol intake: current Alcohol intake frequency: few times a week Household members: spouse Marital status: Current occupational status: retired Physical Exam Const: COMMON NORMALS: no acute distress GENERAL APPEARANCE: cooperative; not ill appearing and not frail appearing HENMT: COMMON NORMALS: normocephalic, atraumatic and Normal external nose present HEAD & SCALP: normocephalic and atraumatic FACE & SINUS: normal facial exam and face symmetric NOSE: Normal external nose present Eye: COMMON NORMALS: Equal, round and reactive pupils present and EOMs intact bilaterally PUPIL: Yes Equal, round and reactive pupils present Neck/C-Spine: GENERAL: Yes trachea midline Chest: CHEST: Yes Symmetrical chest wall rise Resp: COMMON NORMALS: normal respiratory effort, No retractions, No use of accessory muscles and clear to auscultation bilaterally AUSCULTATION: clear to auscultation bilaterally Cardio: RATE: bradycardic RHYTHM: abnormal rhythm irregularly irregular GI: COMMON NORMALS: Normal to inspection, nondistended, normoactive bowel sounds present Extremity: COMMON NORMALS: no pedal edema Neuro: JENY COMA SCALE: document GCS findings Jeny coma scale eye opening: Spontaneous [place] coma scale verbal response: Orientated Jeny coma scale motor response: Obey commands [place] coma scale total score: 15 SENSORY EXAM: Yes extremities (intact) Psych: COMMON NORMALS: speech normal SPEECH: Yes normal speech Skin: COMMON NORMALS: no rashes or lesions noted GENERAL SKIN EXAM: no rashes or lesions noted Course Vital Signs: Vital signs: Vital Signs Temperature 97.6 F 09/05/22 19:48 Pulse Rate 35 L 09/05/22 20:50 Respiratory Rate 13 09/05/22 20:50 Blood Pressure 142/78 09/05/22 20:50 Pulse Oximetry 97 09/05/22 20:50 Oxygen Delivery Me thod Room Air 09/05/22 20:03 MDM - Arrhythmia/Palpitations Medical Decision Making 77-year-old male with a irregular heart rate as low as 35. Slow atrial fibrillation on EKG and on the monitor. No real ST changes. He is not experiencing chest pain. He is somewhat dizzy. Listed medications continued from his last hospitalization are diltiazem XR 240 daily, metoprolol 25 mg daily, and digoxin 125 mcg daily. Digoxin level is pending. Medications will be held. He will go to the ICU given his significant bradycardia. He remains normotensive however. As such, pacer pads were placed on the patient, but he has not yet hooked up to the ZOLL. Spoke with hospitalist. Consulted cardiology. We are all in agreement. Lab Data 09/05/22 19:35 09/05/22 19:35 Laboratory Results WBC 8.5 10^3/uL (4.0-10.0) 09/05/22 19:35 RBC 4.07 10^6/uL (4.1-5.3) L 09/05/22 19:35 Hgb 12.9 g/dL (11.7-16.6) 09/05/22 19:35 Hct 40.4 % (42.0-52.0) L 09/05/22 19:35 MCV 99.3 fl (80-94) H 09/05/22 19:35 MCH 31.7 pg (28.0-34.0) 09/05/22 19:35 MCHC 31.9 g/dL (30.0-36.0) 09/05/22 19:35 RDW 15.8 % (12.1-15.1) H 09/05/22 19:35 Plt Count 314 10^3/cmm (130-400) 09/05/22 19:35 MPV 11.1 fL (7.4-10.4) H 09/05/22 19:35 Neut % (Auto) 60.5 % 09/05/22 19:35 Lymph % (Auto) 19.4 % 09/05/22 19:35 [place] % (Auto) 12.7 % 09/05/22 19:35 Eos % (Auto) 4.2 % 09/05/22 19:35 Baso % (Auto) 2.0 % 09/05/22 19:35 Neut # (Auto) 5.15 10^3/uL (1.8-7.7) 09/05/22 19:35 Lymph # (Auto) 1.7 10^3/uL (0.8-4.8) 09/05/22 19:35 [place] # (Auto) 1.1 10^3/uL (0.2-0.9) H 09/05/22 19:35 Eos # (Auto) 0.4 10^3/uL (0.0-0.8) 09/05/22 19:35 Baso # (Auto) 0.2 10^3/uL (0.0-0.1) H 09/05/22 19:35 Nucleated RBC % (auto) 0 % 09/05/22 19:35 Nucleated RBCs # 0.0 /100WBC 09/05/22 19:35 PT 18.60 SECONDS (12.1-14.9) H 09/05/22 19:35 INR 1.49 (0.8-1.2) H 09/05/22 19:35 APTT 30.9 SECONDS (23.9-36.7) 09/05/22 19:35 Sodium 129 mmol/L (136-145) L 09/05/22 19:35 Potassium 4.7 mmol/L (3.5-5.1) 09/05/22 19:35 Chloride 95 mmol/L (98-107) L 09/05/22 19:35 Carbon Dioxide 22 mmol/L (22-29) 09/05/22 19:35 Anion Gap 16.7 (5-19) 09/05/22 19:35 BUN 32 mg/dL (8-23) H 09/05/22 19:35 Creatinine 1.4 mg/dL (0.7-1.2) H 09/05/22 19:35 GFR Calculation Not Reportable 09/05/22 19:35 Glucose 180 mg/dL (65-115) H 09/05/22 19:35 Calculated Osmolality 279 mOsm/kg (285-295) L 09/05/22 19:35 Calcium 9.1 mg/dL (8.5-10.5) 09/05/22 19:35 Magnesium 2.0 mg/dL (1.7-2.3) 09/05/22 19:35 Total Bilirubin 0.5 mg/dL (0.15-1.2) 09/05/22 19:35 AST 36 U/L (0-40) 09/05/22 19:35 ALT 22 U/L (0-41) 09/05/22 19:35 Alkaline Phosphatase 194 U/L (40-130) H 09/05/22 19:35 Creatine Kinase 53 U/L (39-308) 09/05/22 19:35 Troponin T Baseline 51 ng/L (0-15) H 09/05/22 19:35 Total Protein 7.6 g/dL (6.6-8.7) 09/05/22 19:35 Albumin 3.9 g/dL (3.5-5.2) 09/05/22 19:35 Globulin 3.7 g/dL (1.3-4.6) 09/05/22 19:35 Urine Color Yellow (Yellow) 09/05/22 20:25 Urine Appearance Clear (CLEAR) 09/05/22 20:25 Urine pH 5 (5-7) 09/05/22 20:25 Ur Specific [place] 1.020 (1.005-1.030) 09/05/22 20:25 Urine Protein Neg (Negative) 09/05/22 20:25 Urine Glucose (UA) Norm (Normal) 09/05/22 20:25 Urine Ketones Negative (Negative) 09/05/22 20:25 Urine Blood Neg (Negative) 09/05/22 20:25 Urine Nitrate Negative (Negative) 09/05/22 20:25 Urine Bilirubin Neg (Negative) 09/05/22 20:25 Urine Urobilinogen Norm mg/dL (Negative) 09/05/22 20:25 Ur Leukocyte Esterase Negative (Negative) 09/05/22 20:25 Digoxin 0.7 ng/mL (0.6-1.2) 09/05/22 19:35 Discharge Plan Discharge Patient Disposition: Placed in Observation Clinical Impression: Atrial fibrillation with slow ventricular response Condition: Stable Prescriptions: No Action alogliptin 25 mg tablet 25 mg PO DAILY aspirin [Adult Low Dose Aspirin] 81 mg tablet,delayed release (DR/EC) 81 mg PO QAM digoxin 125 mcg (0.125 mg) tablet 125 mcg PO DAILY magnesium oxide 400 mg (241.3 mg magnesium) tablet 400 mg PO DAILY pantoprazole 40 mg tablet,delayed release (DR/EC) 40 mg PO DAILY atorvastatin 80 mg tablet 80 mg PO QPM lisinopril 10 mg tablet 10 mg PO DAILY Qty: 90 3RF sennosides [senna] 8.6 mg Tablet 17.2 mg PO BID 30 Days Qty: 120 0RF allopurinol 100 mg Tablet 100 mg PO DAILY 30 Days Qty: 30 0RF tamsulosin [Flomax] 0.4 mg Capsule 0.4 mg PO QPM 30 Days Qty: 30 0RF albuterol sulfate [ProAir HFA] 90 mcg/actuation Hfa Aerosol Inhaler 2 puff INHALATION QID PRN (Reason: Shortness Of Breath) Qty: 1 0RF cholecalciferol (vitamin D3) 50 mcg (2,000 unit) Tablet 50 mcg PO DAILY Qty: 30 0RF amlodipine 2.5 mg Tablet 2.5 mg PO DAILY warfarin 3 mg tablet 3 mg PO DAILY furosemide 20 mg tablet 20 mg PO BID metoprolol succinate 25 mg tablet extended release 24 hr 25 mg PO DAILY metformin 500 mg Tablet 1,000 mg PO DAILY DILT-XR 240 mg Capsule,Ext.Rel 24h Degradable 240 mg PO DAILY acetaminophen 500 mg Tablet 1,000 mg PO Q6H PRN (Reason: Pain) One Daily Multivitamin Tablet 1 tab PO DAILY Invanz 1 gram recon soln 1 g IV DAILY 14 Days Qty: 14 0RF glipizide 10 mg tablet 10 mg PO BID Qty: 60 0RF Referrals: Kaila Mohr MD [Primary Care Provider] - Patient Instructions: Opioid Safety, Pain Management Coding Level of Care Code ED Hydraulic Barker Operator for Patrick Baez
[2022-09-05 21:06] LABS: Bilirubin Urine Neg (Negative); Blood Urine Neg (Negative); Glucose Urine UA Norm (Normal); Ketones Urine Negative (Negative); Leukocyte Esterase Urine Negative (Negative); Nitrate Urine Negative (Negative); Protein Urine Neg (Negative); Urine Appearance Clear (CLEAR); Urine Color Yellow (Yellow); Urobilinogen Urine Norm (Negative); pH Urine 5 (5-7)
[2022-09-05 21:34] LABS: Digoxin 0.7 ng/mL (0.6-1.2)
--- NOTE | 2022-09-05 22:10 | ECG_ITS ---
[facility] Test Date: 2022-09-05 Pat Name: Azam Mccabe Department: Room: ICU06 Gender: Male Refrigeration Lead: : 1945 Requested By: David Santiago Order Number: [id number] Bessie MD: Gordon Johnson M.D. Measurements Intervals [place] Rate: 54 P: 0 TX: 0 QRS: 68 QRSD: 96 T: -73 QT: 430 QTc: 410 Interpretive Statements ATRIAL FIBRILLATION WITH SLOW VENTRICULAR RESPONSE ST DEVIATION AND MODERATE T-WAVE ABNORMALITY, CONSIDER ANTEROLATERAL ISCHEMIA [-0.1+ mV T-WAVE IN V3-V6] ST DEVIATION AND MODERATE T-WAVE ABNORMALITY, CONSIDER INFERIOR ISCHEMIA [-0.1+ mV T-WAVE IN II/aVF] Compared to ECG 09/05/2022 21:59:16 No significant changes Electronically Signed On 09-06-2022 17:12:25 CDT by Gordon Johnson M.D. [id number]
[2022-09-05 22:47] LABS: Troponin 5 2HR 45.34 ng/L (0-15)
--- NOTE | 2022-09-05 22:56 | P.HP_ITS ---
Providers/Chief Complaint Admitting Physician: Carol Dick MD Primary Care Provider: Kaila Mohr MD Chief Complaint: bradycardia History of Present Illness Azam Mccabe is a 77 year old male with past medical history of oliguric aneurysm, aortic stenosis, atrial fibrillation, on chronic anticoagulation, COPD, diabetes mellitus, hypertension, peripheral vascular disease, recent CABG in July 2022 presented to the hospital today for complaint of dizziness especially with position change. Denies any chest pain at this time. He has home health at home and it was noticed that his heart rate was very low and was as low as 35. It was suggested he go to the ER. Patient came into the hospital via EMS. Patient's heart rate is in the low 30s however at times will go up to 50 but then this back down to the 30s. Patient is on digoxin at home, diltiazem, metoprolol. Digoxin level is reported 7. EKG was performed did not show any acute ischemic changes however did show atrial fibrillation with slow ventricular response. Patient is symptomatic and feeling a bit dizzy. His medications were held in the ER. Cardiology was consulted. Pacer pads placed on the patient and he will be admitted to the ICU for further monitoring. In June of this year he had a coronary angiogram done which was found to have triple-vessel disease and therefore he was referred for CABG which he had done the following month. First troponin 51. 2-hour and 6-hour troponin pending at this time. Creatinine 1.4, sodium 129, potassium 4.7. UA negative, WBC 8.5, hemoglobin 12.9, platelet 314. At this time patient denies any chest pain, shortness of breath abdominal pain, nausea, vomiting diarrhea. However with position change he does get dizzy. Noted on chart review that patient's most recent discharge was on 29 August and he was admitted for ESBL UTI and placed on 14 days of ertapenem and discharged with a PICC line to home. He was also on warfarin but was unsure on his therapeutic INR. He was asked to discuss with his primary and cardiology will decide on an INR. Apparently patient INR is not supposed to be between 2-3. At that visit he had an echocardiogram done which showed echogenic mobile structure measuring 10 x 8.3 mm noted attached to anterior mitral valve leaflet. Possibly vegetation versus calcified chordae. MARINA recommended if persistent bacteremia however patient got better and was discharged home on ertapenem. He has had this vegetation on previous x-rays as well. Medications/Allergies Home Medications Medication Instructions Recorded Confirmed Last Taken Type albuterol sulfate 90 mcg/actuation 2 puff inhalation QID PRN 10/10/19 08/25/22 11/11/19 Rx aerosol inhaler (ProAir HFA) Shortness Of Breath #1 unit allopurinol 100 mg tablet 100 mg PO DAILY 30 days #30 tabs 10/10/19 08/25/22 07/06/22 19:00 Rx cholecalciferol (vitamin D3) 50 50 mcg PO DAILY #30 tabs 10/10/19 08/25/22 07/06/22 05:00 Rx mcg (2,000 unit) tablet sennosides 8.6 mg tablet (senna) 17.2 mg PO BID 30 days #120 tabs 10/10/19 08/25/22 Unknown Rx tamsulosin 0.4 mg capsule (Flomax) 0.4 mg PO QPM 30 days #30 caps 10/10/19 08/25/22 07/06/22 19:00 Rx alogliptin 25 mg tablet 25 mg PO DAILY 04/20/21 08/25/22 07/06/22 05:00 History aspirin 81 mg tablet,delayed 81 mg PO QAM 04/20/21 08/25/22 08/25/22 History release (Adult Low Dose Aspirin) atorvastatin 80 mg tablet 80 mg PO QPM 04/20/21 08/25/22 07/06/22 19:00 History digoxin 125 mcg (0.125 mg) tablet 125 mcg PO DAILY 04/20/21 08/25/22 07/07/22 03:30 History magnesium oxide 400 mg (241.3 mg 400 mg PO DAILY 04/20/21 08/25/22 07/07/22 03:30 History magnesium) tablet pantoprazole 40 mg tablet,delayed 40 mg PO DAILY 04/20/21 08/25/22 07/07/22 03:30 History release lisinopril 10 mg tablet 10 mg PO DAILY #90 tabs 02/24/22 08/25/22 07/07/22 03:30 Rx amlodipine 2.5 mg tablet 2.5 mg PO DAILY 07/07/22 08/25/22 07/06/22 19:00 History acetaminophen 500 mg tablet 1,000 mg PO Q6H PRN Pain 08/25/22 08/25/22 Unknown History diltiazem HCl 240 mg 240 mg PO DAILY 08/25/22 08/25/22 Unknown History capsule,extended release 24 hr, controlled (DILT-XR) furosemide 20 mg tablet 20 mg PO BID 08/25/22 08/25/22 Unknown History metformin 500 mg tablet 1,000 mg PO DAILY 08/25/22 08/25/22 Unknown History metoprolol succinate 25 mg 25 mg PO DAILY 08/25/22 08/25/22 Unknown History tablet,extended release 24 hr multivitamin (One Daily 1 tab PO DAILY 08/25/22 08/25/22 Unknown History Multivitamin tablet) warfarin 3 mg tablet 3 mg PO DAILY 08/25/22 08/25/22 Unknown History ertapenem 1 gram solution for 1 g IV DAILY 14 days #14 ea 08/29/22 Unknown Rx injection (Invanz) glipizide 10 mg tablet 10 mg PO BID #60 tabs 08/29/22 08/25/22 07/06/22 19:00 Rx Allergies Allergy/AdvReac Type Severity Reaction Status Date / Time Penicillins Allergy Unknown Unknown Unverified 08/29/22 13:14 niacin Allergy unknown Verified 07/14/22 15:06 PFSH Acute PFSH: Medical History Abdominal aortic aneurysm Aortic stenosis Atherosclerosis of coronary artery Atrial fibrillation Chronic alcohol dependence, continuous Chronic anticoagulation Chronic back pain COPD (chronic obstructive pulmonary disease) Diabetes mellitus Footdrop Gout Hypertension Intervertebral disc disorder with radiculopathy of lumbosacral region Lumbar stenosis with neurogenic claudication Peripheral neuropathy Peripheral vascular disease 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 Streptococcus bovis infection / bottles of blood cx (09/30) positive for Strep bovis in 09/2019, 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 IV antibiotics Surgical History History of aortic valve replacement bioprosthetic History of arthroscopy of right shoulder diagnostic at time of bacteremia 09/2019 History of herniorrhaphy History of orthopedic surgery Right shoulder Hx of cholecystectomy Status post cardiac revascularization with bypass aortocoronary anastomosis of five coronary vessels Family History Father CAD (coronary artery disease) Social History Smoking and tobacco status: former smoker Alcohol intake: current Alcohol intake frequency: few times a week Household members: spouse Marital status: Current occupational status: retired Vitals/I&O/Wt Last Vital Signs Temp 97.6 F 09/05/22 19:48 Pulse 39 L 09/05/22 22:37 Resp 18 09/05/22 22:37 BP 126/72 09/05/22 22:37 Pulse Ox 98 09/05/22 22:37 O2 Del Method Room Air 09/05/22 20:03 Weight last 48 hrs Weight 94.149 kg Weight 98.43 kg Physical Exam Narrative: General: Alert oriented x3, patient seen laying in bed. HEENT: Normocephalic, atraumatic, EOMI, breathing normally on room air. Cardio: Irregularly irregular, bradycardic, normal S1-S2, midline sternotomy scar noted. Respiratory: Clear to auscultation bilaterally no wheezing rhonchi at this time. GI: Abdomen soft, nontender, bowel sounds + Extremities: Trace edema noted bilateral lower extremities. Data 09/05/22 19:35 09/05/22 19:35 A&P Assessment and plan (1) Diabetes mellitus: Qualifiers: Diabetes mellitus complication status: with hyperglycemia Diabetes mellitus retirement insulin use: with retirement use Diabetes mellitus type: type 2 Qualified Code(s): E11.65 - Type 2 diabetes mellitus with hyperglycemia; Z79.4 - [facility] (current) use of insulin (2) Hypertension: Qualifiers: Hypertension type: essential hypertension Qualified Code(s): I10 - Essential (primary) hypertension (3) Atrial fibrillation: Qualifiers: Atrial fibrillation type: other persistent Qualified Code(s): I48.19 - Other persistent atrial fibrillation (4) Abdominal aortic aneurysm: Qualifiers: Presence of rupture: without rupture Qualified Code(s): I71.4 - Abdomin al aortic aneurysm, without rupture (5) Peripheral vascular disease: (6) Chronic anticoagulation: (7) Aortic stenosis: Qualifiers: Cardiac valve disease etiology: etiology unspecified Qualified Code(s): I35.0 - Nonrheumatic aortic (valve) stenosis (8) Peripheral neuropathy: (9) Atherosclerosis of coronary artery: (10) Status post cardiac revascularization with bypass aortocoronary anastomosis of five coronary vessels: (11) History of aortic valve replacement: (12) ESBL (extended spectrum beta-lactamase) producing bacteria infection: (13) Atrial fibrillation with slow ventricular response: Plan #Atrial fibrillation with slow ventricular response, bradycardic, symptomatic #Recent CABG, #Coronary artery disease, triple-vessel status post CABG #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 coli, urinary source #ESBL UTI being treated with 14 days of IV antibiotics at home #Hypertension #Hyperlipidemia #GERD #Chronic anticoagulation with warfarin - Admit to icu for closer monitoring - Check digoxin level - Hold bb, ccb from home meds - place on zoll pads -Consult cardiology. Appreciate recommendations ? Hold metformin, glipizide, alogliptin, amlodipine ? Continue aspirin, atorvastatin, pantoprazole, allopurinol ? Continue on warfarin after checking INR. It seems from previous notes It seems his INR is supposed to be between 1.5-2.5. We will discuss this with cardiology to clarify ? Hold digoxin at this time ? Await 2-hour and 6-hour troponin. - sliding scale insulin low dose intensity - Place on meropenem to complete previous 14 day course given - Check echo Full Code SCDS, on warfarin Attestations Medical Necessity Statement*: > 2 midnight stay for management of management of bradycardia Other Coding Information Focused coding review requested Diagnoses Diabetes mellitus E11.65; Z79.4 Diabetes mellitus complication status: with hyperglycemia Diabetes mellitus retirement insulin use: with retirement use Diabetes mellitus type: type 2 Hypertension I10 Hypertension type: essential hypertension Atrial fibrillation I48.19 Atrial fibrillation type: other persistent Abdominal aortic aneurysm I71.4 Presence of rupture: without rupture Peripheral vascular disease I73.9 Chronic anticoagulation Z79.01 Aortic stenosis I35.0 Cardiac valve disease etiology: etiology unspecified Peripheral neuropathy G62.9 Atherosclerosis of coronary artery I25.10 Status post cardiac revascularization with bypass aortocoronary anastomosis of five coronary vessels Z95.1 History of aortic valve replacement Z95.2 ESBL (extended spectrum beta-lactamase) producing bacteria infection A49.9; Z16.12 Atrial fibrillation with slow ventricular response I48.91
[2022-09-05] MEDS: meropenem 1,000 MG in sodium chloride 0.9% (plus) 50 ML 100 MG IV (23:26)
[2022-09-05] MEDS: sodium chloride 0.9% 1,000 ML 75 ML IV (23:35)
[2022-09-05 23:48] LABS: Procalcitonin 0.08 ng/mL (0-0.5)
[2022-09-06] VITALS (113 sets, daily range): BP systolic 108–184; BP diastolic 57–101; PULSE 44–73; RESP 15–38; TEMP 36.3–36.7; O2SAT 91–98
[2022-09-06 02:07] LABS: Troponin 5 6HR 57.31 ng/L (0-15)
[2022-09-06 02:13] LABS: Troponin 5 6HR Delta 6.31 ng/L (0-12)
--- NOTE | 2022-09-06 06:00 | USCV_ITS ---
Azam Mccabe Age: 77 Gender: M : 1945 Exam Date: 09/06/2022 09:16 Ordering Phys: Carol Dick MD Technologist: Jaylen Woo [place] [facility] [place]: bradycardia BP: 126 / 72 HR: 52 Rhythm: Sinus Technical Quality: Adequate MEASUREMENTS (Male / Female) Normal Values 2D ECHO LV Diastolic Diameter PLAX 2.9 cm 4.2 - 5.9 / 3.9 - 5.3 cm LV Systolic Diameter PLAX 1.7 cm IVS Diastolic Thickness 0.8 cm 0.6 - 1.0 / 0.6 - 0.9 cm IVS Systolic Thickness 1.0 cm LVPW Diastolic Thickness 1.3 cm 0.6 - 1.0 / 0.6 - 0.9 cm LVPW Systolic Thickness 1.0 cm LVOT Diameter 2.0 cm LV Ejection Fraction 2D Teich 72.1 % LV Ejection Fraction MOD 2C 63.7 % LV Ejection Fraction 2C AL 64.1 % LA Diameter 4.3 cm LA Width 4.2 cm LA Height 6.5 cm RA Width 4.2 cm RA Height 5.0 cm Aorta at Sinotubular Diameter 1.7 cm IVC Diameter 2.0 cm M-MODE Aortic Annulus Diameter 3.6 cm LA Ao Ratio MM 1.1 DOPPLER Right Atrial Pressure 3.0 mmHg FINDINGS Left Ventricle Right Ventricle Right Atrium Left Atrium Mitral Valve Aortic Valve Tricuspid Valve Pulmonic Valve Pericardium Aorta IVC CONCLUSIONS This is a limited echocardiogram done to assess LV systolic function LV systolic function is normal with EF of 60-65%. No regional wall motion abnormalities. Ascending aorta appears to be dilated Echogenic structure seen on mitral valve. Possibly calcified chordae vs vegetation. Compared to prior echocardiogram from 08/25/2022, no significant changes are noted. Gordon Johnson MD (Electronically Signed) Final Date: 06 September 2022 12:23 S
[2022-09-06] MEDS: meropenem 1,000 MG in sodium chloride 0.9% (plus) 50 ML 100 MG IV ×2 (06:32→16:34)
--- NOTE | 2022-09-06 06:58 | P.CONIM_ITS ---
Providers/Reason For Consult Consulting Physician/Specialty*: Gordon Johnson MD/ Cardiology Reason for Consult*: Atrial fibrillation slow ventricular rate Requesting Physician: Dr Dick Attending Physician: Carol Dick MD Primary Care Provider: Kaila Mohr MD History of Present Illness History of Present Illness Azam Mccabe is a 77 year old male with past medical history of CAD s/p recent CABG and AVR, atrial fibrillation on Coumadin came to hospital with dizziness and low heart rate. He was found to be in A-fib with stable heart rate. He was recently discharged from hospital after being treated for UTI and is currently on antibiotics. Was on digoxin with normal dig level, metoprolol and Cardizem. EKG shows atrial fibrillation with slow ventricular rate. Recent recent echocardiogram showed normal LV systolic function with calcified structure attached to mitral valve anterior leaflet but is unchanged from before. Likely calcified cord. Review of Systems Const: Denies: fever(s) or diaphoresis ENMT: Denies: throat pain Card: Reports: irregular heart rhythm; Denies: chest pain, palpitations, syncope or pre-syncope Resp: Denies: dyspnea, productive cough or non-productive cough GI: Denies: abdominal pain, nausea or vomiting Skin/Breast: Denies: rash Neuro: Reports: dizziness; Denies: headache(s) Psych: Denies: anxiety Medications/Allergies Home Medications Medication Instructions Recorded Confirmed Last Taken Type albuterol sulfate 90 mcg/actuation 2 puff inhalation QID PRN 10/10/19 09/06/22 11/11/19 Rx aerosol inhaler (ProAir HFA) Shortness Of Breath #1 unit allopurinol 100 mg tablet 100 mg PO DAILY 30 days #30 tabs 10/10/19 09/06/22 07/06/22 19:00 Rx cholecalciferol (vitamin D3) 50 50 mcg PO DAILY #30 tabs 10/10/19 09/06/22 07/06/22 05:00 Rx mcg (2,000 unit) tablet sennosides 8.6 mg tablet (senna) 17.2 mg PO BID 30 days #120 tabs 10/10/19 09/06/22 Unknown Rx tamsulosin 0.4 mg capsule (Flomax) 0.4 mg PO QPM 30 days #30 caps 10/10/19 09/06/22 07/06/22 19:00 Rx alogliptin 25 mg tablet 25 mg PO DAILY 04/20/21 09/06/22 07/06/22 05:00 History aspirin 81 mg tablet,delayed 81 mg PO QAM 04/20/21 09/06/22 08/25/22 History release (Adult Low Dose Aspirin) atorvastatin 80 mg tablet 80 mg PO QPM 04/20/21 09/06/22 07/06/22 19:00 History digoxin 125 mcg (0.125 mg) tablet 125 mcg PO DAILY 04/20/21 09/06/22 07/07/22 03:30 History magnesium oxide 400 mg (241.3 mg 400 mg PO DAILY 04/20/21 09/06/22 07/07/22 03:30 History magnesium) tablet pantoprazole 40 mg tablet,delayed 40 mg PO DAILY 04/20/21 09/06/22 07/07/22 03:30 History release lisinopril 10 mg tablet 10 mg PO DAILY #90 tabs 02/24/22 09/06/22 07/07/22 03:30 Rx amlodipine 2.5 mg tablet 2.5 mg PO DAILY 07/07/22 09/06/22 07/06/22 19:00 History acetaminophen 500 mg tablet 1,000 mg PO Q6H PRN Pain 08/25/22 09/06/22 Unknown History diltiazem HCl 240 mg 240 mg PO DAILY 08/25/22 09/06/22 Unknown History capsule,extended release 24 hr, controlled (DILT-XR) furosemide 20 mg tablet 20 mg PO BID 08/25/22 09/06/22 Unknown History metoprolol succinate 25 mg 25 mg PO DAILY 08/25/22 09/06/22 Unknown History tablet,extended release 24 hr multivitamin (One Daily 1 tab PO DAILY 08/25/22 09/06/22 Unknown History Multivitamin tablet) warfarin 3 mg tablet 3 mg PO DAILY 08/25/22 09/06/22 Unknown History glipizide 10 mg tablet 10 mg PO BID #60 tabs 08/29/22 09/06/22 07/06/22 19:00 Rx melatonin 3 mg tablet 3 - 6 mg PO BEDTIME 09/06/22 09/06/22 Unknown History metformin 500 mg tablet,extended 500 mg PO BID 09/06/22 09/06/22 Unknown History release 24hr omega 7-kje-vpg-fish oil 1,200 mg 2 cap PO BEDTIME 09/06/22 09/06/22 Unknown History (144 mg-216 mg) capsule (Fish Oil) sertraline 100 mg tablet 150 mg PO BEDTIME 09/06/22 09/06/22 Unknown History Allergies Allergy/AdvReac Type Severity Reaction Status Date / Time Penicillins Allergy Unknown Unknown Unverified 08/29/22 13:14 niacin Allergy unknown Verified 07/14/22 15:06 Current Medications Generic Name Dose Route Start Last Admin Trade Name Freq PRN Reason Stop Dose Admin Sodium Chloride 1,000 mls @ 75 mls/hr 09/05/22 23:30 09/05/22 23:35 Sodium Chloride 0.9% IV 75 mls/hr .[id number] DAVID Administration Meropenem 1,000 mg/ Sodium 50 mls @ 100 mls/hr 09/05/22 23:30 09/06/22 06:32 Chloride IV 100 mls/hr Q8H DAVID Administration Protocol PFSH Acute 2 PFSH: Medical History Abdominal aortic aneurysm Aortic stenosis Atherosclerosis of coronary artery Atrial fibrillation Chronic alcohol dependence, continuous Chronic anticoagulation Chronic back pain COPD (chronic obstructive pulmonary disease) Diabetes mellitus Footdrop Gout Hypertension Intervertebral disc disorder with radiculopathy of lumbosacral region Lumbar stenosis with neurogenic claudication Peripheral neuropathy Peripheral vascular disease 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 Streptococcus bovis infection 4/4 bottles of blood cx (09/30) positive for Strep bovis in 09/2019, 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 IV antibiotics Surgical History History of aortic valve replacement bioprosthetic History of arthroscopy of right shoulder diagnostic at time of bacteremia 09/2019 History of herniorrhaphy History of orthopedic surgery Right shoulder Hx of cholecystectomy Status post cardiac revascularization with bypass aortocoronary anastomosis of five coronary vessels Family History Father CAD (coronary artery disease) Social History Smoking and tobacco status: former smoker Alcohol intake: current Alcohol intake frequency: few times a week Household members: spouse Marital status: Current occupational status: retired Vitals/I&O/Wt Last Vital Signs Temp 97.9 F 09/06/22 06:00 Pulse 64 09/06/22 06:00 Resp 19 H 09/06/22 06:00 BP 126/72 09/06/22 06:00 Pulse Ox 97 09/06/22 06:00 O2 Del Method Room Air 09/05/22 22:51 09/05/22 09/05/22 09/06/22 14:59 22:59 06:59 Intake Total 450 / 450 Output Total 1150 / 1150 Balance -700 / -700 Weight last 48 hrs Weight 207 lb 9 oz Weight 207 lb 9 oz Weight 217 lb Physical Exam Narrative: GENERAL: Patient is alert, awake and oriented x3. [] NECK: No jugular vein distension. [] HEENT: No cyanosis. No icterus. No pallor. [] HEART: Irregularly irregular. LUNGS: Clear to auscultate bilaterally. [] ABDOMEN: Soft, nontender and nondistended. Positive bowel sounds. No guarding, rebound or tenderness. [] CENTRAL NERVOUS SYSTEM: Grossly nonfocal. [] EXTREMITIES: Lower extremities with 1+ edema bilaterally. Pulses palpable in the lower extremities, both dorsalis pedis and posterior tibial. [] Data 09/07/22 03:13 09/07/22 03:13 A&P Assessment and plan (1) Diabetes mellitus: Qualifiers: Diabetes mellitus type: type 2 Diabetes mellitus petroleum terminal plant operator insulin use: with snf use Diabetes mellitus complication status: with hyperglycemia Qualified Code(s): E11.65 - Type 2 diabetes mellitus with hyperglycemia; Z79.4 - custodial (current) use of insulin (2) Aortic stenosis: Qualifiers: Cardiac valve disease etiology: etiology unspecified Qualified Code(s): I35.0 - Nonrheumatic aortic (valve) stenosis (3) Status post cardiac revascularization with bypass aortocoronary anastomosis of five coronary vessels: (4) History of aortic valve replacement: (5) Atrial fibrillation with slow ventricular response: Plan Patient has presented with A-fib with slow ventricular response and dizziness. Overnight all rate controlling agents were held. Heart rate has improved. His symptoms are also improved. We will restart the metoprolol 25 mg twice daily. Keep holding digoxin and Cardizem. For blood pressure control will initiate amlodipine. As outpatient he will need event monitor. He may have underlying sick sinus syndrome and may require pacemaker in the future. However with recent infection and currently on antibiotics, we will hold off on it at this time. If event monitor shows further signs of SSS, on reduced rate controlling agents, we will arrange for it as out patient. Continue monitoring today. Order limited echocardiogram. Thank you for involving us with care of this patient. We will continue to follow. Please call with questions. Consult Attestations Medical Necessity Statement: Care expected to cross 2 midnights. Coding Level of Care Code Acute Code for g Fwd Diagnoses Diabetes mellitus E11.65; Z79.4 Diabetes mellitus type: type 2 Diabetes mellitus snf insulin use: with petroleum terminal plant operator use Diabetes mellitus complication status: with hyperglycemia Aortic stenosis I35.0 Cardiac valve disease etiology: etiology unspecified Status post cardiac revascularization with bypass aortocoronary anastomosis of five coronary vessels Z95.1 History of aortic valve replacement Z95.2 Atrial fibrillation with slow ventricular response I48.91
[2022-09-06 09:52] LABS: Anion Gap 13.7 (5-19); Blood Urea Nitrogen 23 mg/dL (8-23); Calcium 8.6 mg/dL (8.5-10.5); Carbon Dioxide 24 mmol/L (22-29); Chloride 99 mmol/L (98-107); Glucose 201 mg/dL (65-115); Osmolality Calculated 283 mOsm/kg (285-295); Potassium 4.7 mmol/L (3.5-5.1); Sodium 132 mmol/L (136-145)
[2022-09-06] MEDS: metoprolol tartrate 25 mg Tablet PO (10:20)
[2022-09-06] MEDS: pantoprazole DR 40 mg Tablet PO (10:21)
--- NOTE | 2022-09-06 10:21 | P.PN_ITS ---
Subjective Subjective: History reviewed. Patient denies any complaints currently. Discussed with cardiology, recommend continue monitoring the patient until tomorrow. Metoprolol will be restarted. Medications: Reviewed: Yes Vitals/I&O/Wt Last Vital Signs Temp 97.9 F 09/06/22 06:00 Pulse 64 09/06/22 06:00 Resp 19 H 09/06/22 06:00 BP 126/72 09/06/22 06:00 Pulse Ox 97 09/06/22 06:00 O2 Del Method Room Air 09/05/22 22:51 09/05/22 09/06/22 09/06/22 22:59 06:59 14:59 Intake Total 450 / 450 50 / 50 Output Total 1150 / 1150 Balance -700 / -700 50 / 50 Weight last 48 hrs Weight 94.149 kg Weight 94.149 kg Weight 98.43 kg Physical Exam Narrative: General exam no distress Neck is supple Cardiovascular irregular irregular, with acceptable rate around 65 Lungs clear no wheezing or crackles Abdomen is soft with positive bowel sounds. No obvious organomegaly Extremities no cyanosis clubbing or edema. PICC line is noted. Skin no rash Data 09/05/22 19:35 09/06/22 08:50 A&P Assessment and plan (1) Bradycardia: Patient presents with significant bradycardia, into the 30s. He is on multiple medication for control of his atrial fibrillation including digoxin, metoprolol, diltiazem. Cardiology consultation has been obtained. They recommend restarting metoprolol, monitoring till tomorrow. Digoxin level was not elevated. Continue telemetry CBC, BMP, magnesium level in the morning (2) Atrial fibrillation: Came in bradycardic. See above Restart Coumadin. No surgical procedures are anticipated this hospital stay. Pharmacy order for management. Qualifiers: Atrial fibrillation type: other persistent Qualified Code(s): I48.19 - Other persistent atrial fibrillation (3) ESBL (extended spectrum beta-lactamase) producing bacteria infection: Recent hospitalization for ESBL bacteremia. On ertapenem at home. Changed to meropenem here. No evidence of recurrent infection He should be on the IV antibiotics until the . Will resume ertapenem when he discharges. (4) History of aortic valve replacement: Most recent echocardiogram demonstrates preserved EF, possible vegetation mitral valve which has been evaluated before, well-seated aortic valve with echogenic structure anterior valve leaflet. 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 Continue statin. Plan Multiple other medical problems as outlined in past medical history Coumadin will suffice for DVT prophylaxis Transfer to cardiac stepdown unit Attestations Medical Necessity Statement*: Needs continued hospital stay for evaluation of bradycardia with close monitoring upon reinitiation of rate limiting medication for atrial fibrillation Diagnoses Bradycardia R00.1 Atrial fibrillation I48.19 Atrial fibrillation type: other persistent ESBL (extended spectrum beta-lactamase) producing bacteria infection A49.9; Z16.12 History of aortic valve replacement Z95.2 Diabetes mellitus E11.65; Z79.4 Diabetes mellitus type: type 2 Diabetes mellitus chcf insulin use: with laborer marine terminal use Diabetes mellitus complication status: with hyperglycemia Status post cardiac revascularization with bypass aortocoronary anastomosis of five coronary vessels Z95.1 Time Spent (min) 53
--- NOTE | 2022-09-06 11:14 | PC.PHAR ---
Addendum entered by Mary Alvarez 09/06/22 14:45: Pt unable to verify, not answering phone. Verified [facility] and made notes on individual medications. Addendum entered by Mary Alvarez 09/06/22 13:16: Attempted to call again, no answer, left voicemail. Original Note: [facility] and received list [facility]. Pt unable to verify medications - attempted to call with no answer.
[2022-09-06 11:46] LABS: Glucose Point of Care 200 mg/dL (70-110)
[2022-09-06] MEDS: warfarin 5 mg Tablet PO (13:03)
[2022-09-06] MEDS: insulin lispro 100 unit/1 mL SUBCUT ×2 (13:03→22:20)
[2022-09-06 18:00] LABS: Glucose Point of Care 135 mg/dL (70-110)
[2022-09-06] MEDS: atorvastatin 40 mg Tablet 80 MG PO (18:02)
[2022-09-06] MEDS: sodium chloride 0.9% 1,000 ML 30 ML IV (18:03)
[2022-09-06] MEDS: tamsulosin 0.4 mg Capsule PO (18:03)
[2022-09-06 21:12] LABS: Glucose Point of Care 217 mg/dL (70-110)
[2022-09-07] VITALS (80 sets, daily range): BP systolic 89–179; BP diastolic 67–98; PULSE 38–82; RESP 13–31; TEMP 36.4–37.1; O2SAT 91–99
[2022-09-07] MEDS: meropenem 1,000 MG in sodium chloride 0.9% (plus) 50 ML 100 MG IV ×2 (00:15→08:08)
[2022-09-07 04:05] LABS: Basophils # 0.1 10^3/uL (0.0-0.1); Basophils % 1.7 %; Eosinophils # 0.6 10^3/uL (0.0-0.8); Eosinophils % 6.5 %; Hematocrit 39.1 % (42.0-52.0); Hemoglobin 12.4 g/dL (11.7-16.6); Lymphocytes # 1.8 10^3/uL (0.8-4.8); Lymphocytes % 20.8 %; Mean Corpuscular HGB Conc 31.7 g/dL (30.0-36.0); Mean Corpuscular Hemoglobin 31.5 pg (28.0-34.0); Mean Corpuscular Volume 99.2 fl (80-94); Mean Platelet Volume 11.3 fL (7.4-10.4); Monocytes # 1.2 10^3/uL (0.2-0.9); Monocytes % 13.6 %; Neutrophils # 4.76 10^3/uL (1.8-7.7); Neutrophils % 56.5 %; Nucleated Red Blood Cells % 0 %; Platelet Count 282 10^3/cmm (130-400); Red Blood Count 3.94 10^6/uL (4.1-5.3); Red Cell Distribution Width 15.6 % (12.1-15.1); White Blood Count 8.4 10^3/uL (4.0-10.0)
[2022-09-07 04:18] LABS: INR 1.31 (0.8-1.2)
[2022-09-07 04:34] LABS: Alanine Aminotransferase 20 U/L (0-41); Albumin Level 3.3 g/dL (3.5-5.2); Alkaline Phosphatase 157 U/L (40-130); Anion Gap 14.6 (5-19); Aspartate Amino Transferase 32 U/L (0-40); Blood Urea Nitrogen 18 mg/dL (8-23); Calcium 8.8 mg/dL (8.5-10.5); Carbon Dioxide 25 mmol/L (22-29); Chloride 101 mmol/L (98-107); Globulin 3.4 g/dL (1.3-4.6); Glucose 158 mg/dL (65-115); Magnesium 1.8 mg/dL (1.7-2.3); Osmolality Calculated 287 mOsm/kg (285-295); Potassium 4.6 mmol/L (3.5-5.1); Sodium 136 mmol/L (136-145); Total Bilirubin 0.6 mg/dL (0.15-1.2); Total Protein 6.7 g/dL (6.6-8.7)
[2022-09-07] MEDS: aspirin 81 mg EC Tablet PO (06:24)
[2022-09-07 07:14] LABS: Glucose Point of Care 160 mg/dL (70-110)
--- NOTE | 2022-09-07 07:43 | PM.PN ---
Subjective Subjective: Patient feeling well. No chest pain Vitals/I&O/Wt Last Vital Signs Temp 97.6 F 09/07/22 04:00 Pulse 59 L 09/07/22 06:00 Resp 21 H 09/07/22 06:00 BP 179/98 09/07/22 05:00 Pulse Ox 94 09/07/22 06:00 O2 Del Method Room Air 09/07/22 06:00 09/06/22 09/07/22 09/07/22 22:59 06:59 14:59 Intake Total 683.75 / 2160.00 524 / 2684.00 Output Total 1200 / 1850 425 / 2275 Balance -516.25 / 310.00 99 / 409.00 Weight last 48 hrs Weight 205 lb 0.478 oz Weight 207 lb 9 oz Weight 207 lb 9 oz Weight 217 lb Physical Exam Narrative: GENERAL: Patient is alert, awake and oriented x3. [] NECK: No jugular vein distension. [] HEENT: No cyanosis. No icterus. No pallor. [] HEART: Irregularly irregular. LUNGS: Clear to auscultate bilaterally. [] ABDOMEN: Soft, nontender and nondistended. Positive bowel sounds. No guarding, rebound or tenderness. [] CENTRAL NERVOUS SYSTEM: Grossly nonfocal. [] EXTREMITIES: Lower extremities with 1+ edema bilaterally. Pulses palpable in the lower extremities, both dorsalis pedis and posterior tibial. [] Data 09/07/22 03:13 09/07/22 03:13 A&P Assessment and plan (1) Atrial fibrillation: Qualifiers: Atrial fibrillation type: other persistent Qualified Code(s): I48.19 - Other persistent atrial fibrillation (2) Aortic stenosis: Qualifiers: Cardiac valve disease etiology: etiology unspecified Qualified Code(s): I35.0 - Nonrheumatic aortic (valve) stenosis (3) Status post cardiac revascularization with bypass aortocoronary anastomosis of five coronary vessels: (4) History of aortic valve replacement: (5) Atrial fibrillation with slow ventricular response: Plan Uptitrate amlodipine. Can be discharged home on metoprolol 12.5mg BID. Outpatient event monitor. Thank you for involving us with care of this patient. Please call with questions. Attestations Medical Necessity Statement*: Care expected to cross 2 midnights. Coding Level of Care Code Acute Code for Chg Fwd Diagnoses Atrial fibrillation I48.19 Atrial fibrillation type: other persistent Aortic stenosis I35.0 Cardiac valve disease etiology: etiology unspecified Status post cardiac revascularization with bypass aortocoronary anastomosis of five coronary vessels Z95.1 History of aortic valve replacement Z95.2 Atrial fibrillation with slow ventricular response I48.91
--- NOTE | 2022-09-07 07:53 | P.HP_ITS ---
Providers/Chief Complaint Admitting Physician: Carol Dick MD Primary Care Provider: Kaila Mohr MD Chief Complaint: bradycardia History of Present Illness Azam Mccabe is a 77 year old male Medications/Allergies Home Medications Medication Instructions Recorded Confirmed Last Taken Type albuterol sulfate 90 mcg/actuation 2 puff inhalation QID PRN 10/10/19 09/06/22 11/11/19 Rx aerosol inhaler (ProAir HFA) Shortness Of Breath #1 unit allopurinol 100 mg tablet 100 mg PO DAILY 30 days #30 tabs 10/10/19 09/06/22 07/06/22 19:00 Rx cholecalciferol (vitamin D3) 50 50 mcg PO DAILY #30 tabs 10/10/19 09/06/22 07/06/22 05:00 Rx mcg (2,000 unit) tablet sennosides 8.6 mg tablet (senna) 17.2 mg PO BID 30 days #120 tabs 10/10/19 09/06/22 Unknown Rx tamsulosin 0.4 mg capsule (Flomax) 0.4 mg PO QPM 30 days #30 caps 10/10/19 09/06/22 07/06/22 19:00 Rx alogliptin 25 mg tablet 25 mg PO DAILY 04/20/21 09/06/22 07/06/22 05:00 History aspirin 81 mg tablet,delayed 81 mg PO QAM 04/20/21 09/06/22 08/25/22 History release (Adult Low Dose Aspirin) atorvastatin 80 mg tablet 80 mg PO QPM 04/20/21 09/06/22 07/06/22 19:00 History digoxin 125 mcg (0.125 mg) tablet 125 mcg PO DAILY 04/20/21 09/06/22 07/07/22 03:30 History magnesium oxide 400 mg (241.3 mg 400 mg PO DAILY 04/20/21 09/06/22 07/07/22 03:30 History magnesium) tablet pantoprazole 40 mg tablet,delayed 40 mg PO DAILY 04/20/21 09/06/22 07/07/22 03:30 History release lisinopril 10 mg tablet 10 mg PO DAILY #90 tabs 02/24/22 09/06/22 07/07/22 03:30 Rx amlodipine 2.5 mg tablet 2.5 mg PO DAILY 07/07/22 09/06/22 07/06/22 19:00 History acetaminophen 500 mg tablet 1,000 mg PO Q6H PRN Pain 08/25/22 09/06/22 Unknown History diltiazem HCl 240 mg 240 mg PO DAILY 08/25/22 09/06/22 Unknown History capsule,extended release 24 hr, controlled (DILT-XR) furosemide 20 mg tablet 20 mg PO BID 08/25/22 09/06/22 Unknown History metoprolol succinate 25 mg 25 mg PO DAILY 08/25/22 09/06/22 Unknown History tablet,extended release 24 hr multivitamin (One Daily 1 tab PO DAILY 08/25/22 09/06/22 Unknown History Multivitamin tablet) warfarin 3 mg tablet 3 mg PO DAILY 08/25/22 09/06/22 Unknown History glipizide 10 mg tablet 10 mg PO BID #60 tabs 08/29/22 09/06/22 07/06/22 19:00 Rx melatonin 3 mg tablet 3 - 6 mg PO BEDTIME 09/06/22 09/06/22 Unknown History metformin 500 mg tablet,extended 500 mg PO BID 09/06/22 09/06/22 Unknown History release 24hr omega 2-gxh-ajy-fish oil 1,200 mg 2 cap PO BEDTIME 09/06/22 09/06/22 Unknown History (144 mg-216 mg) capsule (Fish Oil) sertraline 100 mg tablet 150 mg PO BEDTIME 09/06/22 09/06/22 Unknown History Allergies Allergy/AdvReac Type Severity Reaction Status Date / Time Penicillins Allergy Unknown Unknown Unverified 08/29/22 13:14 niacin Allergy unknown Verified 07/14/22 15:06 PFSH Acute PFSH: Medical History Abdominal aortic aneurysm Aortic stenosis Atherosclerosis of coronary artery Atrial fibrillation Chronic alcohol dependence, continuous Chronic anticoagulation Chronic back pain COPD (chronic obstructive pulmonary disease) Diabetes mellitus Footdrop Gout Hypertension Intervertebral disc disorder with radiculopathy of lumbosacral region Lumbar stenosis with neurogenic claudication Peripheral neuropathy Peripheral vascular disease 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 Streptococcus bovis infection 4/4 bottles of blood cx (09/30) positive for Strep bovis in 09/2019, 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 IV antibiotics Surgical History History of aortic valve replacement bioprosthetic History of arthroscopy of right shoulder diagnostic at time of bacteremia 09/2019 History of herniorrhaphy History of orthopedic surgery Right shoulder Hx of cholecystectomy Status post cardiac revascularization with bypass aortocoronary anastomosis of five coronary vessels Family History Father CAD (coronary artery disease) Social History Smoking and tobacco status: former smoker Alcohol intake: current Alcohol intake frequency: few times a week Household members: spouse Marital status: Current occupational status: retired Vitals/I&O/Wt Last Vital Signs Temp 97.6 F 09/07/22 04:00 Pulse 59 L 09/07/22 06:00 Resp 21 H 09/07/22 06:00 BP 179/98 09/07/22 05:00 Pulse Ox 94 09/07/22 06:00 O2 Del Method Room Air 09/07/22 06:00 09/06/22 09/07/22 09/07/22 22:59 06:59 14:59 Intake Total 683.75 / 2160.00 524 / 2684.00 Output Total 1200 / 1850 425 / 2275 Balance -516.25 / 310.00 99 / 409.00 Weight last 48 hrs Weight 93 kg Weight 94.149 kg Weight 94.149 kg Weight 98.43 kg Data 09/07/22 03:13 09/07/22 03:13 Coding Level of Care Code Acute Code for Chg Fwd Diagnoses
--- NOTE | 2022-09-07 07:54 | PM.DCS ---
Discharge Providers Date of Admission: 09/06/22 02:24 Date of Discharge: September 07, 2022 Attending Provider at Admission: Carol Dick MD Attending Provider at Discharge: Andrzej Park MD Primary Care Provider: Kaila Mohr MD Diagnoses at Discharge Discharge Diagnosis (1) Diabetes mellitus: Status: Chronic Qualifiers: Diabetes mellitus complication status: with hyperglycemia Diabetes mellitus intermediate accountant insulin use: with prison use Diabetes mellitus type: type 2 Qualified Code(s): E11.65 - Type 2 diabetes mellitus with hyperglycemia; Z79.4 - [facility] (current) use of insulin (2) Aortic stenosis: Status: Acute Qualifiers: Cardiac valve disease etiology: etiology unspecified Qualified Code(s): I35.0 - Nonrheumatic aortic (valve) stenosis (3) Status post cardiac revascularization with bypass aortocoronary anastomosis of five coronary vessels: Status: Acute (4) History of aortic valve replacement: Status: Chronic Permanent problem details: bioprosthetic (5) Atrial fibrillation with slow ventricular response: Status: Acute Reason for Visit Reason for Visit: bradycardia Hospital Course Hospital Course Azam presented to the hospital feeling tired and dizzy. He was found to be profoundly bradycardic. He was placed in the ICU, and his digoxin, diltiazem, metoprolol were all held. Digoxin level was done on admission and not elevated. With holding of these medications heart rate came back up, and metoprolol was readded. By time of discharge his heart rate was around 65. Cardiology had been consulted recommended reducing his dose to 12.5 mg twice daily on discharge. An echo was performed, which demonstrated no significant change. He had recently been hospitalized for bacteremia with ESBL. Antibiotics were continued inpatient. At discharge he will resume his antibiotics via PICC line and complete the entire course as prescribed before. INR was found to be subtherapeutic on admission, and with no surgical procedure was recommended Coumadin was restarted. He will be discharged on 4 mg a day and should have an INR in 3 days. At discharge he will follow-up with his primary care provider, and cardiology. He will have an event monitor on discharge. It is possible he will need a pacemaker in the future, and this was discussed in detail with the patient. This will be considered after compnlete treatment of his bacteremia. Patient was given an opportunity ask questions, and agreed with the plan. Physical Exam Narrative: General exam no distress Neck supple Cardiovascular irregular, irregular rhythm without murmur Lungs clear Abdomen soft nontender positive bowel sounds Extremities no cyanosis clubbing or edema Discharge Data Studies Completed and Pending Completed Studies During Hospitalization Category Date Time Status XR chest 1V portable [id number] Stat Exams 09/05/22 20:10 Completed CV. echo limited [id number] Urgent Ultrasound 09/06/22 06:00 Completed Pending at discharge Category Date Time Status Prothrombin Time INR AM LABS Lab 09/08/22 04:00 Ordered Prothrombin Time INR AM LABS Lab 09/09/22 04:00 Ordered Radiology Impressions Chest X-Ray 09/05/22 20:10 IMPRESSION: Small volume left pleural effusion. Curvilinear atelectasis or scarring at the left lung base. Laboratory Results WBC 8.4 10^3/uL (4.0-10.0) 09/07/22 03:13 RBC 3.94 10^6/uL (4.1-5.3) L 09/07/22 03:13 Hgb 12.4 g/dL (11.7-16.6) 09/07/22 03:13 Hct 39.1 % (42.0-52.0) L 09/07/22 03:13 MCV 99.2 fl (80-94) H 09/07/22 03:13 MCH 31.5 pg (28.0-34.0) 09/07/22 03:13 MCHC 31.7 g/dL (30.0-36.0) 09/07/22 03:13 RDW 15.6 % (12.1-15.1) H 09/07/22 03:13 Plt Count 282 10^3/cmm (130-400) 09/07/22 03:13 MPV 11.3 fL (7.4-10.4) H 09/07/22 03:13 Neut % (Auto) 56.5 % 09/07/22 03:13 Lymph % (Auto) 20.8 % 09/07/22 03:13 Tillman % (Auto) 13.6 % 09/07/22 03:13 Eos % (Auto) 6.5 % 09/07/22 03:13 Baso % (Auto) 1.7 % 09/07/22 03:13 Neut # (Auto) 4.76 10^3/uL (1.8-7.7) 09/07/22 03:13 Lymph # (Auto) 1.8 10^3/uL (0.8-4.8) 09/07/22 03:13 Tillman # (Auto) 1.2 10^3/uL (0.2-0.9) H 09/07/22 03:13 Eos # (Auto) 0.6 10^3/uL (0.0-0.8) 09/07/22 03:13 Baso # (Auto) 0.1 10^3/uL (0.0-0.1) 09/07/22 03:13 Nucleated RBC % (auto) 0 % 09/07/22 03:13 Nucleated RBCs # 0.0 /100WBC 09/07/22 03:13 PT 16.70 SECONDS (12.1-14.9) H 09/07/22 03:13 INR 1.31 (0.8-1.2) H 09/07/22 03:13 APTT 30.9 SECONDS (23.9-36.7) 09/05/22 19:35 Sodium 136 mmol/L (136-145) 09/07/22 03:13 Potassium 4.6 mmol/L (3.5-5.1) 09/07/22 03:13 Chloride 101 mmol/L (98-107) 09/07/22 03:13 Carbon Dioxide 25 mmol/L (22-29) 09/07/22 03:13 Anion Gap 14.6 (5-19) 09/07/22 03:13 BUN 18 mg/dL (8-23) 09/07/22 03:13 Creatinine 0.9 mg/dL (0.7-1.2) 09/07/22 03:13 GFR Calculation Not Reportable 09/07/22 03:13 Glucose 158 mg/dL (65-115) H 09/07/22 03:13 POC Glucose 160 mg/dL (70-110) H 09/07/22 07:11 Calculated Osmolality 287 mOsm/kg (285-295) 09/07/22 03:13 Calcium 8.8 mg/dL (8.5-10.5) 09/07/22 03:13 Magnesium 1.8 mg/dL (1.7-2.3) 09/07/22 03:13 Total Bilirubin 0.6 mg/dL (0.15-1.2) 09/07/22 03:13 AST 32 U/L (0-40) 09/07/22 03:13 ALT 20 U/L (0-41) 09/07/22 03:13 Alkaline Phosphatase 157 U/L (40-130) H 09/07/22 03:13 Creatine Kinase 53 U/L (39-308) 09/05/22 19:35 Troponin T Baseline 51 ng/L (0-15) H 09/05/22 19:35 Troponin T 120 Minute 45.34 ng/L (0-15) H 09/05/22 22:00 Delta Troponin T -5.66 ABS# (0-10) L 09/05/22 22:00 Troponin T Hi Sens 6Hr 57.31 ng/L (0-15) H 09/06/22 01:27 Troponin T Hi Sens 6Hr Delta 6.31 ng/L (0-12) 09/06/22 01:27 Total Protein 6.7 g/dL (6.6-8.7) 09/07/22 03:13 Albumin 3.3 g/dL (3.5-5.2) L 09/07/22 03:13 Globulin 3.4 g/dL (1.3-4.6) 09/07/22 03:13 Procalcitonin 0.08 ng/mL (0-0.5) 09/05/22 22:00 Urine Color Yellow (Yellow) 09/05/22 20:25 Urine Appearance Clear (CLEAR) 09/05/22 20:25 Urine pH 5 (5-7) 09/05/22 20:25 Ur Specific [place] 1.020 (1.005-1.030) 09/05/22 20:25 Urine Protein Neg (Negative) 09/05/22 20:25 Urine Glucose (UA) Norm (Normal) 09/05/22 20:25 Urine Ketones Negative (Negative) 09/05/22 20:25 Urine Blood Neg (Negative) 09/05/22 20:25 Urine Nitrate Negative (Negative) 09/05/22 20:25 Urine Bilirubin Neg (Negative) 09/05/22 20:25 Urine Urobilinogen Norm mg/dL (Negative) 09/05/22 20:25 Ur Leukocyte Esterase Negative (Negative) 09/05/22 20:25 Digoxin 0.7 ng/mL (0.6-1.2) 09/05/22 19:35 Vitals Last Vital Signs Temp 97.6 F 09/07/22 04:00 Pulse 59 L 09/07/22 06:00 Resp 21 H 09/07/22 06:00 BP 179/98 09/07/22 05:00 Pulse Ox 94 09/07/22 06:00 O2 Del Method Room Air 09/07/22 06:00 Discharge Plan Discharge Patient Disposition: Home Condition: Stable Prescriptions: New amlodipine 10 mg Tablet 10 mg PO DAILY Qty: 30 0RF warfarin 4 mg tablet 4 mg PO DAILY Qty: 30 0RF metoprolol tartrate 25 mg tablet 12.5 mg PO BID Qty: 15 0RF Continued alogliptin 25 mg tablet 25 mg PO DAILY aspirin [Adult Low Dose Aspirin] 81 mg tablet,delayed release (DR/EC) 81 mg PO QAM magnesium oxide 400 mg (241.3 mg magnesium) tablet 400 mg PO DAILY pantoprazole 40 mg tablet,delayed release (DR/EC) 40 mg PO DAILY atorvastatin 80 mg tablet 80 mg PO QPM lisinopril 10 mg tablet 10 mg PO DAILY Qty: 90 3RF sennosides [senna] 8.6 mg Tablet 17.2 mg PO BID 30 Days Qty: 120 0RF allopurinol 100 mg Tablet 100 mg PO DAILY 30 Days Qty: 30 0RF tamsulosin [Flomax] 0.4 mg Capsule 0.4 mg PO QPM 30 Days Qty: 30 0RF albuterol sulfate [ProAir HFA] 90 mcg/actuation Hfa Aerosol Inhaler 2 puff INHALATION QID PRN (Reason: Shortness Of Breath) Qty: 1 0RF cholecalciferol (vitamin D3) 50 mcg (2,000 unit) Tablet 50 mcg PO DAILY Qty: 30 0RF furosemide 20 mg tablet 20 mg PO BID acetaminophen 500 mg Tablet 1,000 mg PO Q6H PRN (Reason: Pain) multivitamin [One Daily Multivitamin] Tablet 1 tab PO DAILY glipizide 10 mg tablet 10 mg PO BID Qty: 60 0RF sertraline 100 mg Tablet 150 mg PO BEDTIME melatonin 3 mg Tablet 3 - 6 mg PO BEDTIME metformin 500 mg Tablet Extended Release 24hr 500 mg PO BID Fish Oil 1,200 (144-216) mg Capsule 2 cap PO BEDTIME Discontinued digoxin 125 mcg (0.125 mg) tablet 125 mcg PO DAILY amlodipine 2.5 mg Tablet 2.5 mg PO DAILY warfarin 3 mg tablet 3 mg PO DAILY metoprolol succinate 25 mg tablet extended release 24 hr 25 mg PO DAILY diltiazem HCl [DILT-XR] 240 mg Capsule,Ext.Rel 24h Degradable 240 mg PO DAILY Discharge Orders: Discharge Order (Routine); Ordered 09/07/22 Ordered By: Andrzej Park Other Ambulatory Orders: MCT/Event Monitor 21 Days (Routine) Timeframe: 1 Day Facility: [facility] - Location: Radiology Ordered By: Andrzej Park Referrals: Gordon Johnson M.D [Physician] - 2 weeks Kaila Mohr MD [Primary Care Provider] - 4-7 days Discharge Diet: Cardiac and Diabetic Discharge Activity: Increase activity as tolerated Patient Instructions: Metoprolol (By mouth), Warfarin (By mouth), Amlodipine (By mouth), A-fib (Atrial Fibrillation) (DC), Heart Healthy Diet (DC), Basic Carbohydrate Counting (DC), Bradycardia (DC), Opioid Safety, Pain Management Activity Restrictions/Additional Instructions: Take all medicine as prescribed. Return for any concerns. Event monitor at discharge. Follow-up with cardiology. INR needs to be obtained in 3 days, results sent to Coumadin clinic. A ertapenem should be continued through date ordered on previous hospital stay Patient's Health Concerns: Low heart rate Assessment: Bradycardia, A-fib Plan of Treatment: Discontinue digoxin, diltiazem. Event monitor. Possible pacemaker in the future Discharge Attestations Time Spent in Discharge Care*: greater than 30 min Status at Discharge: Cognitive status at discharge: cognitively intact, Behavioral status at discharge: cooperative, Quality Metrics Clinical Quality Measures [ No reported AMI, CVA or VTE this stay] Coding Level of Care Code 54194 Total time (in minutes) for Discharge: 37 Diagnoses Diabetes mellitus E11.65; Z79.4 Diabetes mellitus complication status: with hyperglycemia Diabetes mellitus intermediate accountant insulin use: with intermediate accountant use Diabetes mellitus type: type 2 Aortic stenosis I35.0 Cardiac valve disease etiology: etiology unspecified Status post cardiac revascularization with bypass aortocoronary anastomosis of five coronary vessels Z95.1 History of aortic valve replacement Z95.2 Atrial fibrillation with slow ventricular response I48.91
[2022-09-07] MEDS: pantoprazole DR 40 mg Tablet PO (08:09)
[2022-09-07] MEDS: lisinopril 10 mg Tablet PO (08:10)
[2022-09-07] MEDS: allopurinol 100 mg Tablet PO (08:10)
[2022-09-07] MEDS: amlodipine 10 mg Tablet PO (08:10)
[2022-09-07] MEDS: insulin lispro 100 unit/1 mL SUBCUT (08:10)
[2022-09-07] MEDS: metoprolol tartrate 25 mg Tablet PO (08:11)
--- NOTE | 2022-09-07 09:49 | PC.NURSE ---
Dr. Johnson notified that patients heart rate is in 30's to low 50's. Dr. Johnson assessed patient and approved discharge with change in home dose of metoprolol.
[2022-09-07 11:16] LABS: Glucose Point of Care 180 mg/dL (70-110)
--- NOTE | 2022-09-07 12:37 | NUR.SHIFT ---
Patient extensively educated on follow up appointments, band instrument maker, home meds, and S/S of bradycardia, taking pulse at home, monitoring BP, as well as obtaining INR in 3 days. Patient given written education on the previous listed as well as diet and activity. at bedside for education. Pharmacy provided home medications to bedside and provided education/answered any and all questions on home medications. Patient brought via wheelchair to personal vehicle with as primary courier delivery driver. Patient and family had no questions at the time of discharge.
== END 2022-09-07 12:42 | disposition home health service (06) | DRG 309 ==
LOC: ER 22:03 → ICU 22:31
PROVIDERS: Admitting Provider Internal Medicine; Emergency Provider Emergency Medicine; PCP Family Medicine; Visit Provider Internal Medicine
DX: I48.19 Other persistent atrial fibrillation (principal); N39.0 Urinary tract infection, site not specified; Z16.12 Extended spectrum beta lactamase (ESBL) resistance; R78.81 Bacteremia; R00.1 Bradycardia, unspecified; B96.20 Unspecified Escherichia coli [E. coli] as the cause of diseases classified elsewhere; E11.65 Type 2 diabetes mellitus with hyperglycemia; I35.0 Nonrheumatic aortic (valve) stenosis; I71.40 Abdominal aortic aneurysm, without rupture, unspecified; I25.10 Atherosclerotic heart disease of native coronary artery without angina pectoris; J44.9 Chronic obstructive pulmonary disease, unspecified; I10 Essential (primary) hypertension; E11.51 Type 2 diabetes mellitus with diabetic peripheral angiopathy without gangrene; E78.5 Hyperlipidemia, unspecified; Z95.2 Presence of prosthetic heart valve; Z95.1 Presence of aortocoronary bypass graft; Z79.4 Long term (current) use of insulin; Z87.891 Personal history of nicotine dependence; Z79.82 Long term (current) use of aspirin; Z79.01 Long term (current) use of anticoagulants
CPT/HCPCS: 36415; 36416; 71045; 80048; 80053; 80162; 81003; 82550; 82962; 83735; 84145; 84484; 85025; 85610; 85730; 93005; 93308; 96372; 96376; 99285; G0378; J1815; J2185; J7030

== ENCOUNTER 2022-09-10 16:39 | Outpatient (CLI) | payer OTHER, SELFPAY ==
[2022-09-10 19:09] LABS: Hematocrit 38.5 % (42.0-52.0); Hemoglobin 12.2 g/dL (11.7-16.6); Mean Corpuscular HGB Conc 31.7 g/dL (30.0-36.0); Mean Corpuscular Hemoglobin 31.9 pg (28.0-34.0); Mean Corpuscular Volume 100.5 fl (80-94); Mean Platelet Volume 11.9 fL (7.4-10.4); Platelet Count 268 10^3/cmm (130-400); Red Blood Count 3.83 10^6/uL (4.1-5.3); Red Cell Distribution Width 15.9 % (12.1-15.1); White Blood Count 7.7 10^3/uL (4.0-10.0)
[2022-09-10 19:22] LABS: Total Cells Counted 100 (0-100)
[2022-09-10 19:25] LABS: Alanine Aminotransferase 30 U/L (0-41); Albumin Level 3.6 g/dL (3.5-5.2); Alkaline Phosphatase 163 U/L (40-130); Aspartate Amino Transferase 31 U/L (0-40); Blood Urea Nitrogen 32 mg/dL (8-23); Calcium 8.9 mg/dL (8.5-10.5); Carbon Dioxide 22 mmol/L (22-29); Chloride 101 mmol/L (98-107); Globulin 3.3 g/dL (1.3-4.6); Glucose 178 mg/dL (65-115); Osmolality Calculated 297 mOsm/kg (285-295); Sodium 138 mmol/L (136-145); Total Bilirubin 0.4 mg/dL (0.15-1.2); Total Protein 6.9 g/dL (6.6-8.7)
[2022-09-10 19:28] LABS: Absolute Eosinophils 0.7 10^3/cmm (0.0-0.7); Absolute Segmented Neutrophil 4.9 10/cmm (1.6-7.1); Basophils Absolute 0.1 10^3/cmm (0.0-0.2); Eosinophils 10 %; Lymphocytes 20 %; Monocytes Absolute 0.4 10^3/cmm (0.1-0.6); Segmented Neutrophils 64 %
[2022-09-10 19:29] LABS: Lymphocytes Absolute 1.5 10^3/cmm (1.2-3.4)
[2022-09-10 19:30] LABS: Absolute Neutrophil 4.9 10^3/cmm (1.4-6.5); Platelet Estimate Normal (Normal)
[2022-09-10 19:35] LABS: Anion Gap 19.5 (5-19); Potassium 4.5 mmol/L (3.5-5.1)
== END 2022-09-10 16:40 | disposition home or self-care (01) ==
LOC: LAB 16:42
PROVIDERS: PCP Family Medicine; Visit Provider Family Medicine
DX: R78.81 Bacteremia (principal); B96.20 Unspecified Escherichia coli [E. coli] as the cause of diseases classified elsewhere; Z16.12 Extended spectrum beta lactamase (ESBL) resistance
CPT/HCPCS: 80053; 85007; 85027

== ENCOUNTER 2022-09-14 09:24 | Emergency (ER) | payer OTHER, SELFPAY ==
[2022-09-14 09:33] VITALS: BP 118/62; PULSE 51; RESP 18; TEMP 36.3; O2SAT 96
--- NOTE | 2022-09-14 10:03 | W.ED.ARRPALP ---
HPI - Arrhythmia/Palpitations General: Chief Complaint: Arrhythmia/Palpitations Stated Complaint: Johnson sent/heart problems Time Seen by Provider: 09/14/22 09:50 Source: patient Mode of arrival: ambulatory History of Present Illness: 76-year-old male presents emergency room from local primary care clinic. I did noted bradycardia and referred him to the ER. He has a history of atrial fibrillation he is on Coumadin he is also on metoprolol no recent changes in his metoprolol dose. Has been completely asymptomatic throughout and has not been hypotensive no lightheadedness dizziness no signs of decompensated congestive heart failure and orthopnea. He has not had any chest discomfort. Onset (ago): unknown Associated symptoms: Reports no associated symptoms; Deny nausea or vomiting Review of Systems Const: Denies: fever(s), chills, body aches, change in appetite, fatigue or malaise ENMT: Denies: throat pain, ear or mastoid pain, nasal discharge or nasal congestion Card: Denies: chest pain, edema, dyspnea on exertion or orthopnea Resp: Denies: dyspnea, productive cough or non-productive cough GI: Denies: abdominal pain, nausea, vomiting, hematemesis, coffee ground emesis, diarrhea, constipation, bloating, hematochezia or melena : Denies: flank pain, dysuria, urinary frequency or urinary urgency Skin/Breast: Denies: rash or pruritus PFSH ED PFSH: Medical History Abdominal aortic aneurysm Aortic stenosis Atherosclerosis of coronary artery Atrial fibrillation Chronic alcohol dependence, continuous Chronic anticoagulation Chronic back pain COPD (chronic obstructive pulmonary disease) Diabetes mellitus Footdrop Gout Hypertension Intervertebral disc disorder with radiculopathy of lumbosacral region Lumbar stenosis with neurogenic claudication Peripheral neuropathy Peripheral vascular disease 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 Streptococcus bovis infection 4/ bottles of blood cx (09/30) positive for Strep bovis in 09/2019, treated with group home IV antibiotics Surgical History History of aortic valve replacement bioprosthetic History of arthroscopy of right shoulder diagnostic at time of bacteremia 09/2019 History of herniorrhaphy History of orthopedic surgery Right shoulder Hx of cholecystectomy Status post cardiac revascularization with bypass aortocoronary anastomosis of five coronary vessels Family History Father CAD (coronary artery disease) Social History Smoking and tobacco status: former smoker Alcohol intake: current Alcohol intake frequency: few times a week Substance/Drug Use: never Household members: spouse Marital status: Current occupational status: retired Physical Exam Const: COMMON NORMALS: no acute distress GENERAL APPEARANCE: cooperative and comfortable ORIENTATION/CONSCIOUSNESS: Yes awake, Yes oriented to person, Yes oriented to place and Yes oriented to time HENMT: COMMON NORMALS: normocephalic, atraumatic and hearing grossly normal bilaterally HEAD & SCALP: normocephalic and atraumatic Resp: COMMON NORMALS: normal respiratory effort, No retractions, No use of accessory muscles and clear to auscultation bilaterally AUSCULTATION: clear to auscultation bilaterally Cardio: COMMON NORMALS: regular rhythm and No murmurs present (Cardio) RATE: bradycardic RHYTHM: regular rhythm GI: COMMON NORMALS: Soft to palpation and No hepatosplenomegaly present AUSCULTATION: Yes normoactive bowel sounds PALPATION: Yes Soft to palpation, No Tenderness to palpation present (GI), No Guarding due to palpation present (GI) and Yes No hepatosplenomegaly present Extremity: COMMON NORMALS: normal to inspection, capillary refill normal, no clubbing, cyanosis or edema, no calf tenderness and no pedal edema Neuro: SENSORIUM/ORIENTATION: Yes oriented to person, Yes oriented to place and Yes oriented to time Skin: COMMON NORMALS: no rashes or lesions noted GENERAL SKIN EXAM: no rashes or lesions noted Course Vital Signs: Vital signs: Vital Signs Temperature 97.4 F L 09/14/22 09:33 Pulse Rate 51 L 09/14/22 09:33 Respiratory Rate 18 09/14/22 09:33 Blood Pressure 118/62 09/14/22 09:33 Pulse Oximetry 96 09/14/22 09:33 Oxygen Delivery Me thod Room Air 09/14/22 09:33 MDM - Arrhythmia/Palpitations Medical Decision Making Patient having asymptomatic bradycardia at this time. He occasionally has some orthostatic hypotension when he first stands but has not been persistent is only associated with initial postural changes. We will discharge the patient home he did have bradycardia with a rhythm of atrial fibrillation with a well-controlled response at this time. He has an appointment with Dr. Wilson we will set him up for a 48-hour Holter monitor and follow-up with Dr. Wilson for further medication adjustments. Patient advised to return if he has worsening symptoms. Medical Records I reviewed the patient's medical records. Lab Data I reviewed the patient's lab results. Discharge Plan Discharge Patient Disposition: Home Clinical Impression: Bradycardia, Medication side effects Condition: Stable Prescriptions: No Action alogliptin 25 mg tablet 25 mg PO DAILY aspirin [Adult Low Dose Aspirin] 81 mg tablet,delayed release (DR/EC) 81 mg PO QAM magnesium oxide 400 mg (241.3 mg magnesium) tablet 400 mg PO DAILY pantoprazole 40 mg tablet,delayed release (DR/EC) 40 mg PO DAILY atorvastatin 80 mg tablet 80 mg PO QPM lisinopril 10 mg tablet 10 mg PO DAILY Qty: 90 3RF sennosides [senna] 8.6 mg Tablet 17.2 mg PO BID 30 Days Qty: 120 0RF allopurinol 100 mg Tablet 100 mg PO DAILY 30 Days Qty: 30 0RF tamsulosin [Flomax] 0.4 mg Capsule 0.4 mg PO QPM 30 Days Qty: 30 0RF albuterol sulfate [ProAir HFA] 90 mcg/actuation Hfa Aerosol Inhaler 2 puff INHALATION QID PRN (Reason: Shortness Of Breath) Qty: 1 0RF cholecalciferol (vitamin D3) 50 mcg (2,000 unit) Tablet 50 mcg PO DAILY Qty: 30 0RF furosemide 20 mg tablet 20 mg PO BID acetaminophen 500 mg Tablet 1,000 mg PO Q6H PRN (Reason: Pain) multivitamin [One Daily Multivitamin] Tablet 1 tab PO DAILY glipizide 10 mg tablet 10 mg PO BID Qty: 60 0RF sertraline 100 mg Tablet 150 mg PO BEDTIME melatonin 3 mg Tablet 3 - 6 mg PO BEDTIME metformin 500 mg Tablet Extended Release 24hr 500 mg PO BID amlodipine 10 mg Tablet 10 mg PO DAILY Qty: 30 0RF warfarin 4 mg tablet 4 mg PO DAILY Qty: 30 0RF metoprolol tartrate 25 mg tablet 12.5 mg PO BID Qty: 15 0RF Discharge Orders: Discharge ED (Routine); Ordered 09/14/22 Ordered By: Raghav Foley Referrals: Kaila Mohr MD [Primary Care Provider] - Patient Instructions: Opioid Safety, Pain Management Activity Restrictions/Additional Instructions: You were seen today for asymptomatic bradycardia. This is likely due to your metoprolol. Keep your appointment with a paper sales manager as planned. We will set you up for a Holter monitor as an outpatient cardiology will discuss the results with you. If your symptoms change or worsen if you get any chest pain lightheadedness or dizziness return to the emergency room. Coding Level of Care Code ED Mechanical Systems Engineer for Patrick Baez
[2022-09-14 10:17] VITALS: PULSE 67; RESP 16; O2SAT 97
--- NOTE | 2022-09-14 14:16 | DCPLANNER ---
Addendum entered by Leida Dickey 10/18/22 11:14: This appointment was rescheduled Addendum entered by Leida Dickey 09/16/22 08:34: Patient had an appointment scheduled with [facility] [place] event monitor - patient did attend appointment. Patient has a follow up appointment scheduled for Tuesday, October 11, 2022 at 12:[address] Johnson at [facility]. Original Note: assistant center manager had message to schedule a follow up appointment for patient with cardiology. assistant center manager sent patients information to the front office staff at [facility]. Patients information will be printed and reviewed. Clinic will call patient with appointment information. assistant center manager also had message to schedule an outpatient halter monitor for patient. assistant center manager cannot order this for patient due to patient having VA insurance, patient was referred to heart care.
== END 2022-09-14 10:18 | disposition home or self-care (01) ==
PROVIDERS: Emergency Provider Family Medicine; PCP Family Medicine
DX: I35.0 Nonrheumatic aortic (valve) stenosis (principal); I10 Essential (primary) hypertension; I48.19 Other persistent atrial fibrillation; I73.9 Peripheral vascular disease, unspecified; Z87.891 Personal history of nicotine dependence; J44.9 Chronic obstructive pulmonary disease, unspecified; E11.9 Type 2 diabetes mellitus without complications; T50.905A Adverse effect of unspecified drugs, medicaments and biological substances, initial encounter; Z79.01 Long term (current) use of anticoagulants; Z79.82 Long term (current) use of aspirin; Z79.84 Long term (current) use of oral hypoglycemic drugs; R00.1 Bradycardia, unspecified; X58.XXXA Exposure to other specified factors, initial encounter
CPT/HCPCS: 99214; 99283

== ENCOUNTER → 2022-09-29 09:45 | Outpatient (BNVA) | payer OTHER, SELFPAY | PROVIDERS: PCP Family Medicine; Visit Provider Internal Medicine Cardiovascular Disease | DX: I48.19 Other persistent atrial fibrillation (principal) | CPT/HCPCS: 85610 ==

== ENCOUNTER → 2022-10-05 10:32 | Outpatient (BNVA) | payer OTHER, SELFPAY | PROVIDERS: PCP Family Medicine; Visit Provider Internal Medicine | DX: I48.19 Other persistent atrial fibrillation (principal) | CPT/HCPCS: 85610 ==

== ENCOUNTER → 2022-10-11 09:27 | Outpatient (BNVA) | payer OTHER, SELFPAY | PROVIDERS: PCP Family Medicine; Visit Provider Nurse Practitioner Family | DX: L57.0 Actinic keratosis (principal); L57.8 Other skin changes due to chronic exposure to nonionizing radiation; L90.5 Scar conditions and fibrosis of skin; L85.3 Xerosis cutis; Z71.89 Other specified counseling; L81.4 Other melanin hyperpigmentation; D22.5 Melanocytic nevi of trunk | CPT/HCPCS: 17000; 17003; 99214 ==

== ENCOUNTER → 2022-10-12 09:27 | Outpatient (BNVA) | payer OTHER, SELFPAY | PROVIDERS: PCP Family Medicine; Visit Provider Internal Medicine | DX: I48.19 Other persistent atrial fibrillation (principal) | CPT/HCPCS: 85610 ==

== ENCOUNTER → 2022-10-19 11:27 | Outpatient (BNVA) | payer OTHER, SELFPAY | PROVIDERS: PCP Family Medicine; Visit Provider Internal Medicine | DX: I48.19 Other persistent atrial fibrillation (principal) | CPT/HCPCS: 85610 ==

== ENCOUNTER → 2022-10-26 09:24 | Outpatient (BNVA) | payer OTHER, SELFPAY | PROVIDERS: PCP Family Medicine; Visit Provider Internal Medicine | DX: I48.19 Other persistent atrial fibrillation (principal) | CPT/HCPCS: 85610 ==

== ENCOUNTER → 2022-11-01 15:00 | Outpatient (BNVA) | payer OTHER, SELFPAY | PROVIDERS: PCP Family Medicine; Visit Provider Internal Medicine | DX: I35.0 Nonrheumatic aortic (valve) stenosis (principal); I10 Essential (primary) hypertension; I48.19 Other persistent atrial fibrillation; I73.9 Peripheral vascular disease, unspecified; Z79.01 Long term (current) use of anticoagulants; Z87.891 Personal history of nicotine dependence; Z79.82 Long term (current) use of aspirin | CPT/HCPCS: 99214 ==

== ENCOUNTER → 2022-11-09 10:35 | Outpatient (BNVA) | payer OTHER, SELFPAY | PROVIDERS: PCP Family Medicine; Visit Provider Internal Medicine | DX: I48.19 Other persistent atrial fibrillation (principal) | CPT/HCPCS: 85610 ==

== ENCOUNTER → 2023-04-11 10:16 | Outpatient (BNVA) | payer OTHER, SELFPAY | PROVIDERS: PCP Family Medicine; Visit Provider Nurse Practitioner Family | DX: L57.0 Actinic keratosis (principal); L57.8 Other skin changes due to chronic exposure to nonionizing radiation; L90.5 Scar conditions and fibrosis of skin; L85.3 Xerosis cutis; D22.5 Melanocytic nevi of trunk; L81.4 Other melanin hyperpigmentation | CPT/HCPCS: 17000; 99213 ==

== ENCOUNTER → 2023-05-02 12:41 | Outpatient (BNVA) | payer OTHER, SELFPAY | PROVIDERS: PCP Family Medicine; Visit Provider Internal Medicine | DX: I35.0 Nonrheumatic aortic (valve) stenosis (principal); I10 Essential (primary) hypertension; I48.19 Other persistent atrial fibrillation; Z87.891 Personal history of nicotine dependence; E11.51 Type 2 diabetes mellitus with diabetic peripheral angiopathy without gangrene; Z79.84 Long term (current) use of oral hypoglycemic drugs; Z79.01 Long term (current) use of anticoagulants | CPT/HCPCS: 99214 ==

== ENCOUNTER → 2023-10-10 10:08 | Outpatient (BNVA) | payer OTHER, SELFPAY | PROVIDERS: PCP Family Medicine; Visit Provider Nurse Practitioner Family | DX: L57.0 Actinic keratosis (principal); L57.8 Other skin changes due to chronic exposure to nonionizing radiation; L81.4 Other melanin hyperpigmentation; D22.5 Melanocytic nevi of trunk; D48.5 Neoplasm of uncertain behavior of skin | CPT/HCPCS: 11102; 17004; 99213 ==

== ENCOUNTER → 2023-11-14 09:02 | Outpatient (BNVA) | payer OTHER, SELFPAY | PROVIDERS: PCP Family Medicine; Visit Provider Dermatology | DX: C44.01 Basal cell carcinoma of skin of lip (principal); L57.0 Actinic keratosis; L57.8 Other skin changes due to chronic exposure to nonionizing radiation; I78.8 Other diseases of capillaries; L81.4 Other melanin hyperpigmentation | CPT/HCPCS: 17000; 99214 ==

== ENCOUNTER → 2023-12-29 11:22 | Outpatient (BNVA) | payer OTHER, SELFPAY | PROVIDERS: PCP Family Medicine; Visit Provider Internal Medicine | DX: I35.0 Nonrheumatic aortic (valve) stenosis (principal); I10 Essential (primary) hypertension; I48.19 Other persistent atrial fibrillation; I73.9 Peripheral vascular disease, unspecified; Z87.891 Personal history of nicotine dependence | CPT/HCPCS: 99214 ==

== ENCOUNTER → 2024-02-08 08:55 | Outpatient (BNVA) | payer OTHER, SELFPAY | PROVIDERS: PCP Family Medicine; Visit Provider Nurse Practitioner Family | DX: L57.0 Actinic keratosis (principal); L57.8 Other skin changes due to chronic exposure to nonionizing radiation; I78.8 Other diseases of capillaries; D22.39 Melanocytic nevi of other parts of face; Z85.828 Personal history of other malignant neoplasm of skin | CPT/HCPCS: 17004; 99214 ==

== ENCOUNTER 2024-04-09 11:22 | Inpatient (IN) | payer OTHER, SELFPAY ==
[2024-04-09] VITALS (21 sets, daily range): BP systolic 102–168; BP diastolic 44–107; PULSE 88–120; RESP 18–43; TEMP 36.7–38.2; O2SAT 80–95; BMI 28.4
--- NOTE | 2024-04-09 11:25 | ECG_ITS ---
[facility] [place] [facility] Date: 2024-04-09 Pat Name: Azam Mccabe Department: Room: Gender: Male Stadium Manager: : 1945 Requested By: Cha Germain Order Number: [id number] Bessie MD: Nellie Webb M.D. Measurements Intervals [place] Rate: 93 P: 0 AL: 0 QRS: 93 QRSD: 101 T: 72 QT: 359 QTc: 448 Interpretive Statements ATRIAL FIBRILLATION WITH ABERRANT CONDUCTION OR VENTRICULAR PREMATURE COMPLEXES BORDERLINE RIGHT AXIS DEVIATION [QRS AXIS > 90] NONSPECIFIC ST & T-WAVE ABNORMALITY ABNORMAL RHYTHM ECG Compared to ECG 09/05/2022 22:56:41 Ventricular premature complex(es) now present Aberrant conduction of supraventricular beat(s) now present Possible ischemia no longer present T-wave abnormality still present Electronically Signed On 04-09-2024 19:23:03 DIRECTOR VALIDATION by Nellie Webb M.D. [email or web address]
--- NOTE | 2024-04-09 11:26 | XR_ITS ---
WS: [id number] Exam: XR chest 1V portable [id number] Date/Time of Exam: 04/09/2024 11:28 AM Reason For Exam: fever, cough Comparison 09/05/2022. The lungs are fully expanded. There are chronic interstitial changes noted bilaterally. No acute infi ltrate is seen. Mild cardiac enlargement and signs of previous cardiac valve replacement. The mediast inum is normal in contour. Marked degenerative change of both shoulders. Rotator cuff anchor in the R IGHT humeral head. XR/XR chest 1V portable [id number] IMPRESSION: 1. Mild cardiac enlargement. 2. No acute cardiopulmonary finding. Chronic bilateral pulmonary changes.
--- NOTE | 2024-04-09 11:26 | CT_ITS ---
WS: [id number] CT HEAD TECHNIQUE: Noncontrast CT of the head obtained from the skullbase to the vertex. CLINICAL INFORMATION: Encephalopathy, altered mental status COMPARISON: 02/25/2021 DLP: 649.[address] scans at [facility] use at least one of these dose optimization techniques: automated e xposure control; mA and/or kV adjustment per patient size (includes targeted exams where dose is matc hed to clinical indication); or iterative reconstruction. FINDINGS: No evidence of intracranial hemorrhage or mass effect. Ventricular system and basal cisterns are del rosario nt. Moderate small vessel changes with moderate parenchymal volume loss. No extra-axial fluid collect ions. No evidence of mass or mass effect. Vascular calcification. Paranasal sinuses and mastoid air cells are well aerated. .Normal visualized soft tissues. CT/CT head wo con* [id number] IMPRESSION: 1. No evidence of intracranial hemorrhage or mass effect. 2. Moderate small vessel changes. Moderate parenchymal volume loss. 3. Intracranial vascular calcification. LEFT 4. No acute intracranial findings. Notified Cha Castañeda MD at 04/09/2024 11:55 AM.
[2024-04-09 11:38] LABS: ABG PCO2 22.1 mmHg (35-45); ABG PH Result 7.46 (7.35-7.45); Alveolar-Arterial Oxygen Gradi 9.5 mmHg (5-10); Blood Gas Allen Test Pos; Blood Gas Operator Identificat AMH; Blood Gas Sample Site Radial, left; Carboxyhemoglobin 1.5 %THgb (0.4-20.1); HCO3 ABG 15.7 mmol/L (22-26); HGB O2 Sat 84.6 % (95-100); Ionized Calcium Level - ABG 1.2 mmol/L (1.1-1.4); Methemoglobin 0.2 % (0.4-1.5); Oxygen Device ROOM AIR; PO2 ABG 46.5 mmHg (80.0-100.0); PO2 FiO2 Ratio Arterial Blood 221; Potassium Level - ABG 3.7 mmol/L (3.5-5.0); Total Hemoglobin 13.7 g/dL (14-18)
[2024-04-09 11:40] LABS: Blood Gas Sample Type MixedVenous
--- NOTE | 2024-04-09 11:45 | W.ED.AMS ---
HPI - Altered Mental Status General: Chief Complaint: Altered Mental Status Stated Complaint: SOB Time Seen by Provider: 04/09/24 11:25 History of Present Illness: 78-year-old man with history of atrial fibrillation on Eliquis, hypertension, and diabetes who presents emergency room with fever, low blood pressure and confusion. He has been sick for a few days. When I try to clarify exactly how his says he just has not been feeling well and has been having fevers. No significant cough. No vomiting. No focal motor deficits. He has been having waxing and waning confusion. When I talk to him he knows his name and answers questions appropriately but then shortly after he becomes agitated and starts pulling at lines and things. EMS reports a temp of 103 in the field. He is 100.7 here. They also report of blood pressure in the 80s and 90s systolic for which he did receive some fluids. Related Data Home Medications Medication Instructions Recorded Confirmed aspirin 81 mg tablet,delayed 81 mg PO QAM 04/20/21 04/09/24 release (Adult Low Dose Aspirin) atorvastatin 80 mg tablet 40 mg PO QPM 04/20/21 04/09/24 magnesium oxide 400 mg (241.3 mg 400 mg PO DAILY 04/20/21 04/09/24 magnesium) tablet pantoprazole 40 mg tablet,delayed 40 mg PO DAILY 04/20/21 04/09/24 release acetaminophen 500 mg tablet 1,000 mg PO Q6H PRN Pain 08/25/22 04/09/24 multivitamin (One Daily 1 tab PO DAILY 08/25/22 04/09/24 Multivitamin tablet) melatonin 3 mg tablet 3 - 6 mg PO BEDTIME 09/06/22 04/09/24 metformin 500 mg tablet,extended 1,000 mg PO BID 09/06/22 04/09/24 release 24hr (osmotic) sertraline 100 mg tablet 150 mg PO QAM depression 09/06/22 04/09/24 furosemide 20 mg tablet 20 mg PO QPM 05/02/23 04/09/24 amlodipine 10 mg tablet 10 mg PO DAILY 04/09/24 04/09/24 ammonium lactate 12 % lotion 1 applic topical BID PRN Dry Skin 04/09/24 04/09/24 apple cider vinegar 300 mg tablet 300 mg PO DAILY 04/09/24 04/09/24 carboxymethylcellulose 1 1 drp ophthalmic (eye) QID PRN Dry 04/09/24 04/09/24 %-glycerin 0.9 % eye gel drops Eyes clotrimazole 1 % topical cream 1 applic topical BID 04/09/24 04/09/24 empagliflozin 25 mg tablet 25 mg PO DAILY 04/09/24 04/09/24 fluoride (sodium) 1.1 % dental 1 applic dental DAILY 04/09/24 04/09/24 paste (Sodium Fluoride 5000 Dry Mouth) meclizine 25 mg chewable tablet 25 mg PO TID PRN Vertigo 04/09/24 04/09/24 omega 3-vmq-saq-fish oil 1,000 mg 2 cap PO TID 04/09/24 04/09/24 (120 mg-180 mg) capsule (Fish Oil) potassium chloride 20 mEq See Rx Instructions .Route .COMPLEX 04/09/24 04/09/24 tablet,extended release prazosin 2 mg capsule 2 mg PO QPM 04/09/24 04/09/24 sitagliptin 100 mg tablet 100 mg PO DAILY 04/09/24 04/09/24 Previous Rx's Medication Instructions Recorded allopurinol 100 mg tablet 100 mg PO DAILY 30 days #30 tabs 10/10/19 cholecalciferol (vitamin D3) 50 50 mcg PO DAILY #30 tabs 10/10/19 mcg (2,000 unit) tablet sennosides 8.6 mg tablet (senna) 17.2 mg (2 x 8.6 mg) PO BID 30 10/10/19 days #120 tabs tamsulosin 0.4 mg capsule (Flomax) 0.4 mg PO QPM 30 days #30 caps 10/10/19 apixaban 5 mg tablet (Eliquis) 5 mg PO BID #180 tabs 11/01/22 Allergies Allergy/AdvReac Type Severity Reaction Status Date / Time Penicillins Allergy Unknown Unknown Verified 12/29/23 12:21 niacin Allergy unknown Verified 12/29/23 12:21 Review of Systems General: Reports: ROS unobtainable due to medical condition and ROS unobtainable due to mental status PFS ED PFSH: Medical History Atherosclerosis of coronary artery Peripheral neuropathy Footdrop Lumbar stenosis with neurogenic 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 Streptococcus bovis infection 4/4 bottles of blood cx (09/30) positive for Strep bovis in 09/2019, treated with usp IV antibiotics Aortic stenosis Gout COPD (chronic obstructive pulmonary disease) Chronic anticoagulation Chronic alcohol dependence, continuous Chronic back pain Peripheral vascular disease Abdominal aortic aneurysm Hypertension Diabetes mellitus Atrial fibrillation Surgical History History of arthroscopy of right shoulder diagnostic at time of bacteremia 09/2019 History of aortic valve replacement bioprosthetic Status post cardiac revascularization with bypass aortocoronary anastomosis of five coronary vessels History of herniorrhaphy History of orthopedic surgery Right shoulder Hx of cholecystectomy Family History Father CAD (coronary artery disease) Social History Smoking and tobacco/nicotine status: former use of tobacco/nicotine Alcohol intake: current Alcohol intake frequency: few times a week Substance/Drug Use: never Household members: spouse Marital status: Current occupational status: retired Physical Exam Narrative: General: Alert, no acute distress. Skin: Warm, dry. Head: Normocephalic, atraumatic. Neck: Supple, trachea midline. Eye: Extraocular movements are intact. Ears, nose, mouth and throat: mucosa moist. Cardiovascular: Regular, Normal peripheral perfusion. Respiratory: Lungs are clear to auscultation, respirations are non-labored, breath sounds are equal, Symmetrical chest wall expansion. Gastrointestinal: Soft, Nontender, Non distended Musculoskeletal: Normal ROM, no deformity. Neurological: Alert and oriented to his . He becomes quite agitated and confused at times, No focal neurological deficit observed. Psychiatric: Patient becomes agitated and confused at times alternating between this and being able to answer questions appropriately. Course Vital Signs: Vital signs: Vital Signs Temperature 98.4 F 04/09/24 13:16 Pulse Rate 88 04/09/24 15:29 Respiratory Rate 18 04/09/24 12:04 Blood Pressure 109/44 04/09/24 15:29 Pulse Oximetry 93 04/09/24 15:29 Oxygen Delivery Me thod Room Air 04/09/24 15:29 MDM - Altered Mental Status Medical Decision Making Medical decision making: Differential diagnosis including but not limited to and based on the above HPI, review of systems and physical exam: In this patient with altered mental status: Stroke. Hypoglycemia. Metabolic encephalopathy. Infections such as pneumonia, urinary tract infection, Covid-19, Influenza. Electrolyte abnormalities such as hypernatremia. Renal failure / uremia. Hepatic encephalopathy. Hypoxemia. Hypercapnic respiratory failure. Psychosis. Drug or alcohol intoxication. Medication overdose. Orders placed to evaluate differential diagnosis based on the above differential, HPI and physical exam EKG: Time 1125. Rate 93. Atrial fibrillation with controlled rate, No ST-T changes, no ectopy, This was reviewed and interpreted by myself the ER physician at 11:30 AM. Repeat EKG: Time 1436. Rate 81. Atrial fibrillation with controlled rate, No ST-T changes, no ectopy, This was reviewed and interpreted by myself the ER physician at 1440. No significant changes from EKG done previously today in the emergency room. Chest x-ray: No acute process. No infiltrate. No pneumothorax. This was reviewed and interpreted by myself the emergency room physician. I also reviewed the radiology report. Lab Review: Laboratory results were reviewed and interpreted by myself the emergency room physician. Significant leukocytosis with a white count of 26,000. No anemia. Hemoglobin is 14. BUN and creatinine are close to normal at 23 and 1. Urinalysis does not show any infection. Lactate is elevated at 3. AB.4 46. I believe this is mixed gas. CT of the chest abdomen pelvis with contrast: This was done to rule out any other sources of sepsis. Diverticulosis without diverticulitis. Atelectasis. No obvious focal infiltrates. Diverticulosis without diverticulitis. Other findings as listed below. This was reviewed and interpreted by myself the emergency room physician. I also reviewed the radiology report. I reviewed the patient's medical record. Reexamination: Patient has had some improvement. He is less agitated at this time. He remains oriented to his . He is answering questions more appropriately at this time. No focal motor deficits. Fever has improved. Consultation: I spoke with Dr. Dick who is on-call for the hospitalist service. Looking back he has had bacteremia and possible endocarditis in the past. He had gone home on ertapenem. I did give meropenem and Zyvox here in the emergency room today. Dr. Colmenares agrees to admission to the ICU. Assessment and plan: Sepsis Metabolic encephalopathy Leukocytosis Fever ?So far no specific source. No UTI. No pneumonia. Abdominal CT was negative for infection. He does have a history of possible endocarditis and bacteremia. Antibiotics given should cover this. -2.5 L normal saline bolus. Fluid volumes based on ideal body weight. -Broad-spectrum antibiotics were administered. Zyvox and meropenem -Sepsis quality measures. -Lactic acid with a reflex was ordered. -Blood cultures were ordered. -I discussed the patient with the hospitalist on-call who is admitting the patient. - Discussed findings and plan with patient. Answered any questions. - All laboratory values were reviewed and interpreted personally by myself, the ER physician - All imaging was reviewed and interpreted personally by myself, the ER physician. - Evaluation and treatment of this problem were appropriate in the emergency setting Critical care -I spent a total of >35 minutes of critical care time managing the patient, independent of any other practitioner. -The time involved in the performance of separately reportable procedures was not counted towards critical care time. Lab Data 04/09/24 10:58 04/09/24 10:58 Radiology Impressions Chest X-Ray 04/09/24 11:26 IMPRESSION: 1. Mild cardiac enlargement. 2. No acute cardiopulmonary finding. Chronic bilateral pulmonary changes. Head CT 04/09/24 11:26 IMPRESSION: 1. No evidence of intracranial hemorrhage or mass effect. 2. Moderate small vessel changes. Moderate parenchymal volume loss. 3. Intracranial vascular calcification. LEFT 4. No acute intracranial findings. Notified Cha Castañeda MD at 04/09/2024 11:55 AM. Chest/Abdomen/Pelvis CT 04/09/24 13:30 IMPRESSION: 1. Chronic emphysematous changes. Bibasilar atelectasis. 2. Marked cardiomegaly with coronary artery calcification. 3. Fusiform abdominal aortic aneurysm measuring 3.5 x 3.4 x 4.7 cm AP by transverse by craniocaudal stable compared to previous 4. Stable horseshoe kidney 5. Benson catheter. 6. Sigmoid diverticulosis. No evidence of acute diverticulitis. 7. No other acute findings Laboratory Results WBC 25.94 10^3/uL (3.29-11.43) H 04/09/24 10:58 RBC 4.67 10^6/uL (3.85-5.65) 04/09/24 10:58 Hgb 14.30 g/dL (11.27-16.99) 04/09/24 10:58 Hct 44.1 % (37-53) 04/09/24 10:58 MCV 94.4 fl (82-101) 04/09/24 10:58 MCH 30.6 pg (27-33) 04/09/24 10:58 MCHC 32.4 g/dL (30-55) 04/09/24 10:58 RDW 14.2 % (12.1-15.1) 04/09/24 10:58 Plt Count 227 10^3/cmm (157-399) 04/09/24 10:58 MPV 11.3 fL (7.4-10.4) H 04/09/24 10:58 Neut % (Auto) 93.4 % 04/09/24 10:58 Lymph % (Auto) 2.7 % 04/09/24 10:58 [place] % (Auto) 2.5 % 04/09/24 10:58 Eos % (Auto) 0.0 % 04/09/24 10:58 Baso % (Auto) 0.2 % 04/09/24 10:58 Neut # (Auto) 24.23 10^3/uL (1.8-7.7) H 04/09/24 10:58 Lymph # (Auto) 0.7 10^3/uL (0.8-4.8) L 04/09/24 10:58 [place] # (Auto) 0.6 10^3/uL (0.2-0.9) 04/09/24 10:58 Eos # (Auto) 0.0 10^3/uL (0.0-0.8) 04/09/24 10:58 Baso # (Auto) 0.1 10^3/uL (0.0-0.1) 04/09/24 10:58 Nucleated RBC % (auto) 0 % 04/09/24 10:58 Nucleated RBCs # 0.0 /100WBC 04/09/24 10:58 Specimen Type Mixedvenous 04/09/24 11:25 Sample Site Radial, left 11/18/24 11:25 ABG pH 7.46 (7.35-7.45) H 04/09/24 11:25 ABG pCO2 22.1 mmHg (35-45) L 04/09/24 11:25 ABG pO2 46.5 mmHg (80.0-100.0) L 04/09/24 11:25 ABG PO2/FiO2 Ratio 221 04/09/24 11:25 ABG HCO3 15.7 mmol/L (22-26) L 04/09/24 11:25 ABG O2 Saturation 86.0 04/09/24 11:25 ABG Base Excess -6.0 mmol/L (-2.0-2.0) L 04/09/24 11:25 Orion Test Pos 04/09/24 11:25 A-a O2 Gradient 9.5 mmHg (5-10) 04/09/24 11:25 Hematocrit 42.0 % (42-52) 04/09/24 11:25 Hgb O2 Saturation 84.6 % (95-100) L 04/09/24 11:25 Carboxyhemoglobin 1.5 %THgb (0.4-20.1) 04/09/24 11:25 Methemoglobin 0.2 % (0.4-1.5) L 04/09/24 11:25 Total Hemoglobin 13.7 g/dL (14-18) L 04/09/24 11:25 Sodium 140.0 mmol/L (131-143) 04/09/24 11:25 Potassium 3.7 mmol/L (3.5-5.0) 04/09/24 11:25 Glucose 176.0 mg/dL (70-115) H 04/09/24 11:25 Ionized Calcium 1.2 mmol/L (1.1-1.4) 04/09/24 11:25 O2 Delivery Device Room air 04/09/24 11:25 FiO2 21.0 % 04/09/24 11:25 It Infrastructure Specialist ID [id number] 04/09/24 11:25 Sodium 137 mmol/L (136-145) 04/09/24 10:58 Potassium 3.6 mmol/L (3.5-5.1) 04/09/24 10:58 Chloride 97 mmol/L (98-107) L 04/09/24 10:58 Carbon Dioxide 19 mmol/L (22-29) L 04/09/24 10:58 Anion Gap 24.6 (5-19) H 04/09/24 10:58 BUN 23 mg/dL (8-23) 04/09/24 10:58 Creatinine 1.0 mg/dL (0.7-1.2) 04/09/24 10:58 GFR Calculation Not Reportable 04/09/24 10:58 Glucose 179 mg/dL (65-115) H 04/09/24 10:58 Calculated Osmolality 292 mOsm/kg (285-295) 04/09/24 10:58 Lactic Acid 2.3 mmol/L (0.5-2.2) H 04/09/24 10:58 Lactic Acid (Sepsis) 1.2 mmol/L (0.5-2.2) 04/09/24 14:40 Calcium 9.0 mg/dL (8.5-10.5) 04/09/24 10:58 Total Bilirubin 2.1 mg/dL (0.15-1.2) H 04/09/24 10:58 AST 56 U/L (0-40) H 04/09/24 10:58 ALT 28 U/L (0-41) 04/09/24 10:58 Alkaline Phosphatase 312 U/L (40-130) H 04/09/24 10:58 Troponin T Baseline 23 ng/L (0-15) H 04/09/24 10:58 Troponin T 120 Minute 23.50 ng/L (0-15) H 04/09/24 13:27 Delta Troponin T 0.50 ABS# (0-10) 04/09/24 13:27 C-Reactive Protein 197.0 mg/L (0.0-4.9) H 04/09/24 10:58 Total Protein 8.2 g/dL (6.6-8.7) 04/09/24 10:58 Albumin 3.4 g/dL (3.5-5.2) L 04/09/24 10:58 Globulin 4.8 g/dL (1.3-4.6) H 04/09/24 10:58 Urine Color Yellow (Yellow) 04/09/24 13:14 Urine Appearance Clear (CLEAR) 04/09/24 13:14 Urine pH 5.5 (5-7) 04/09/24 13:14 Ur Specific [place] 1.029 (1.005-1.030) 04/09/24 13:14 Urine Protein 1+ (Negative) A 04/09/24 13:14 Urine Glucose (UA) 3+ (Normal) H 04/09/24 13:14 Urine Ketones 2+ (Negative) H 04/09/24 13:14 Urine Blood 2+ (Negative) A 04/09/24 13:14 Urine Nitrate Negative (Negative) 04/09/24 13:14 Urine Bilirubin Negative (Negative) 04/09/24 13:14 Urine Urobilinogen 1.0 mg/dL (Negative) 04/09/24 13:14 Ur Leukocyte Esterase Negative (Negative) 04/09/24 13:14 Urine RBC 3-5 /hpf (0-2) 04/09/24 13:14 Urine WBC 0-5 /hpf (0-5) 04/09/24 13:14 Ur Squamous Epith Cells 0-5 /hpf (0-5) 04/09/24 13:14 Amorphous Sediment Not Reportable 04/09/24 13:14 Urine Bacteria None seen /hpf (NONE) 04/09/24 13:14 Hyaline Casts 0-4 /lpf H 04/09/24 13:14 Coronavirus (PCR) Negative (Negative) 04/09/24 11:30 Influenza A (PCR) Negative (Negative) 04/09/24 11:30 Influenza Type B (PCR) Negative (Negative) 04/09/24 11:30 RSV (PCR) Negative (Negative) 04/09/24 11:30 All radiology interpretation(s) finalized by discharge Discharge Plan Discharge Patient Disposition: Admitted As Inpatient Clinical Impression: Sepsis, Acute metabolic encephalopathy, Fever Condition: Stable Coding Level of Care Code ED Wad Printing Machine Operator for Patrick Baez
[2024-04-09] MEDS: haloperidol inj 5 mg/mL INJ 1 mL 10 MG IVP (11:50)
[2024-04-09] MEDS: sodium chloride 0.9% 1,000 ML 999 ML IV ×2 (11:54→12:27)
[2024-04-09] MEDS: acetaminophen 1,000 MG/100 ML PIGGYBACK 400 MG IV (11:59)
[2024-04-09 12:02] LABS: Basophils # 0.1 10^3/uL (0.0-0.1); Basophils % 0.2 %; Hematocrit 44.1 % (37-53); Lymphocytes # 0.7 10^3/uL (0.8-4.8); Lymphocytes % 2.7 %; Mean Corpuscular HGB Conc 32.4 g/dL (30-55); Mean Corpuscular Hemoglobin 30.6 pg (27-33); Mean Corpuscular Volume 94.4 fl (82-101); Mean Platelet Volume 11.3 fL (7.4-10.4); Monocytes # 0.6 10^3/uL (0.2-0.9); Monocytes % 2.5 %; Neutrophils # 24.23 10^3/uL (1.8-7.7); Neutrophils % 93.4 %; Nucleated Red Blood Cells % 0 %; Platelet Count 227 10^3/cmm (157-399); Red Blood Count 4.67 10^6/uL (3.85-5.65); Red Cell Distribution Width 14.2 % (12.1-15.1); White Blood Count 25.94 10^3/uL (3.29-11.43)
[2024-04-09] MEDS: albuterol 2.5 mg/3 mL Neb INHALATION (12:04)
[2024-04-09] MEDS: meropenem 500 mg SDV IVP (12:08)
[2024-04-09] MEDS: linezolid premix 600 MG/300 ML PREMIX 300 MG IV ×2 (12:11→23:21)
[2024-04-09 12:13] LABS: Covid PCR NEGATIVE (Negative); Influenza A NEGATIVE (Negative); Influenza B NEGATIVE (Negative); Respiratory Syncytial Virus Ce NEGATIVE (Negative)
[2024-04-09 12:26] LABS: Alanine Aminotransferase 28 U/L (0-41); Albumin Level 3.4 g/dL (3.5-5.2); Alkaline Phosphatase 312 U/L (40-130); Anion Gap 24.6 (5-19); Aspartate Amino Transferase 56 U/L (0-40); Blood Urea Nitrogen 23 mg/dL (8-23); Carbon Dioxide 19 mmol/L (22-29); Chloride 97 mmol/L (98-107); Creatinine Clr Calc Pharmacy 71.2215; Globulin 4.8 g/dL (1.3-4.6); Glucose 179 mg/dL (65-115); Osmolality Calculated 292 mOsm/kg (285-295); Potassium 3.6 mmol/L (3.5-5.1); Sodium 137 mmol/L (136-145); Total Bilirubin 2.1 mg/dL (0.15-1.2); Total Protein 8.2 g/dL (6.6-8.7)
[2024-04-09 12:27] LABS: Lactic Sepsis W/Reflex 2.3 mmol/L (0.5-2.2); Troponin(5th) Baseline 23 ng/L (0-15)
--- NOTE | 2024-04-09 12:35 | PC.PHAR ---
Addendum entered by Medina Vines 04/09/24 13:07: Spouse states pt has not taken medications today and she knows nothing about pts' medications. Last med rec completed by Vicki Chapman at [facility] [place] Original Note: [facility] 04/09/24 12:35pm
[2024-04-09 13:22] LABS: Bilirubin Urine Negative (Negative); Blood Urine 2+ (Negative); Glucose Urine UA 3+ (Normal); Ketones Urine 2+ (Negative); Leukocyte Esterase Urine Negative (Negative); Nitrate Urine Negative (Negative); Protein Urine 1+ (Negative); Specific Gravity, Urine 1.029 (1.005-1.030); Urine Appearance Clear (CLEAR); Urine Color Yellow (Yellow); pH Urine 5.5 (5-7)
[2024-04-09 13:24] LABS: Bacteria Urine None Seen /hpf; Hyaline Casts Urine 0-4 /lpf; Squamous Epithelial Cell Urine 0-5 /hpf (0-5); WBC Urine 0-5 /hpf (0-5)
[2024-04-09 13:27] LABS: Add Urine Culture? No
--- NOTE | 2024-04-09 13:30 | CT_ITS ---
WS: [id number] CT CHEST, ABDOMEN, AND PELVIS TECHNIQUE: Contrast-enhanced CT of the chest, abdomen, and pelvis with coronal and sagittal reformatt ed images. CLINICAL INFORMATION: sepsis COMPARISON: CT 08/25/2022 and 08/20/2022 DLP: 1337.[address] scans at [facility] use at least one of these dose optimization techniques: automated e xposure control; mA and/or kV adjustment per patient size (includes targeted exams where dose is matc hed to clinical indication); or iterative reconstruction. CT CHEST: Cardiomegaly. Chronic emphysematous changes. Bibasilar atelectasis. No focal consolidation or signifi cant pleural fluid. Prior sternotomy with CABG. Aortic calcification. Coronary calcification. Normal caliber thoracic aorta. No mediastinal or hilar lymphadenopathy. No axillary lymphadenopathy. Hypertrophic changes thoracic spine. CT ABDOMEN AND PELVIS: Mild hepatomegaly. Diffuse fatty infiltration of the liver. Splenic granulomas. Small esophageal hiat al hernia. Fatty atrophy of the pancreas. Portal vein and splenic vein are patent. Adrenal glands are normal. Horseshoe kidney configuration. No hydronephrosis. Benson catheter. Normal sigmoid colon. No free fluid in the abdomen or pelvis. Fusiform abdominal aortic aneurysm measuring 3.5 x 3.4 x 4.7 cm AP by transverse by craniocaudal CT/CT chest abdpel w/*[id number] IMPRESSION: 1. Chronic emphysematous changes. Bibasilar atelectasis. 2. Marked cardiomegaly with coronary artery calcification. 3. Fusiform abdominal aortic aneurysm measuring 3.5 x 3.4 x 4.7 cm AP by trans verse by craniocaudal stable compared to previous 4. Stable horseshoe kidney 5. Benson catheter. 6. Sigmoid diverticulosis. No evidence of acute diverticulitis. 7. No other acute findings
[2024-04-09 13:44] LABS: Reflex Lactate Order REFLEX LACTIC ORDERD
[2024-04-09] MEDS: iohexol 350 mg/mL 500 mL Btl (per mL) IV (14:20)
--- NOTE | 2024-04-09 14:36 | ECG_ITS ---
[facility] Test Date: 2024-04-09 Pat Name: Azam Mccabe Department: Room: Gender: Male [place]: : 1945 Requested By: Cha Germain Order Number: [id number] Bessie MD: Nellie Webb M.D. Measurements Intervals [place] Rate: 81 P: 0 ID: 0 QRS: 78 QRSD: 106 T: 93 QT: 348 QTc: 404 Interpretive Statements ATRIAL FLUTTER/TACHYCARDIA NONSPECIFIC T-WAVE ABNORMALITY ABNORMAL RHYTHM ECG Compared to ECG 04/09/2024 11:25:49 Atrial fibrillation no longer present Ventricular premature complex(es) no longer present Aberrant conduction of supraventricular beat(s) no longer present T-wave abnormality still present Electronically Signed On 04-09-2024 19:34:37 PROCESSING TECHNICIAN by Nellie Webb M.D. [id number]
[2024-04-09 15:02] LABS: Lactic Acid level (Lactate) 1.2 mmol/L (0.5-2.2)
--- NOTE | 2024-04-09 15:29 | USCV_ITS ---
Azam Mccabe Age: 78 Gender: M : 1945 Exam Date: 04/09/2024 19:06 Ordering Phys: Carol Dick MD Technologist: DENY Exam Location: [facility] [place] Indication: rule out vegetation AMS, atrial fibrillation, HTN, DM. Alcoholic delirium withdrawl. BP: 153 / 92 HR: 100 Rhythm: Atrial fibrillation Technical Quality: technically difficult due to ETOH delirium MEASUREMENTS (Male / Female) Normal Values 2D ECHO LV Diastolic Diameter PLAX 3.9 cm 4.2 - 5.9 / 3.9 - 5.3 cm IVS Diastolic Thickness 1.7 cm 0.6 - 1.0 / 0.6 - 0.9 cm IVS Systolic Thickness 2.0 cm LVPW Diastolic Thickness 1.4 cm 0.6 - 1.0 / 0.6 - 0.9 cm LVPW Systolic Thickness 1.6 cm LVOT Diameter 2.0 cm LV Ejection Fraction 2D Teich 63.4 % LV Ejection Fraction MOD 4C 51.0 % LV Ejection Fraction MOD 2C 58.5 % LV Ejection Fraction 2C AL 56.5 % LA Diameter 5.3 cm Aorta at Sinotubular Diameter 2.7 cm IVC Diameter 2.2 cm M-MODE LA Ao Ratio MM 1.6 AV Cusp Separation MM 2.1 cm DOPPLER AV Peak Velocity 283.0 cm/s LVOT Peak Velocity 120.0 cm/s AV Area Cont Eq vti 1.4 cm squared AV Area Cont Eq pk 1.3 cm squared MV Peak Velocity 195.0 cm/s MV Area PHT 3.0 cm squared Mitral E to A Ratio 579.0 TR Peak Velocity 304.0 cm/s TR Peak Gradient 37.0 mmHg TV Peak E Velocity 33.0 cm/s Right Atrial Pressure 10.0 mmHg Pulmonary Artery Systolic Pressu 47.0 mmHg PV Peak Velocity 101.0 cm/s FINDINGS Left Ventricle Normal left ventricular size, systolic function and wall thickness, with no regional wall motion abnormalities. Left ventricular ejection fraction is estimated at 55 %. Grade II/IV diastolic dysfunction, moderately elevated filling pressures. Right Ventricle The right ventricle is normal in size and function. Right Atrium The right atrium is normal in size. Left Atrium Mildly increased left atrial size. Mitral Valve Severely thickened mitral valve. Moderate mitral annular calcification. No mitral valve stenosis. Mild-moderate mitral valve regurgitation. Aortic Valve Severe aortic valve calcification. Mild to moderate aortic valve stenosis, mean gradient 15.2 mmHg, MANOLO 1.4 cm squared. Trace aortic valve regurgitation. Tricuspid Valve [id number] tricuspid valve regurgitation. Pulmonic Valve Structurally normal pulmonic valve without significant stenosis. There is no pulmonic regurgitation. Pericardium Normal pericardium without effusion. Aorta Normal ascending aorta dimension. IVC The inferior vena cava appears normal. CONCLUSIONS Normal left ventricular size, systolic function and wall thickness, with no regional wall motion abnormalities. Left ventricular ejection fraction is estimated at 55 %. Grade II/IV diastolic dysfunction, moderately elevated filling pressures. Severely thickened mitral valve. Moderate mitral annular calcification. No mitral valve stenosis. Mild-moderate mitral valve regurgitation. Severe aortic valve calcification. Mild to moderate aortic valve stenosis, mean gradient 15.2 mmHg, MANOLO 1.4 cm squared. Trace aortic valve regurgitation. [id number] tricuspid valve regurgitation. There is no pericardial effusion. Right atrial pressure is around 10 mm of mercury. Mildly increased left atrial size. Nataly Ramirez MD (Electronically Signed) Final Date: 09 April 2024 21:59 S
--- NOTE | 2024-04-09 15:29 | PM.HP ---
Providers/Chief Complaint Primary Care Provider: Kaila Mohr MD Chief Complaint: SOB History of Present Illness Azam Mccabe is a 78 year old male past medical history of oliguric aneurysm, aortic stenosis, atrial fibrillation, on chronic anticoagulation, COPD, diabetes mellitus, hypertension, peripheral vascular disease, recent CABG in July 2022 presented to the hospital today for complaint of altered mental status. Patient was brought in by the . History was mainly obtained from the chart and from the at bedside. She states that for the last 3 or 4 days he has had a fever. He was coughing however not really expectorating anything. Denied any vomiting however did have some dry heaving. Other than that she states there were no other symptoms that she noted. She said he has been getting more more confused over the last few days. She states he does drink alcohol and drinks 9 beers every other day. Last drink was Tuesday about 72 hours ago. She also states that he did complain of lower back pain last few days and he has never had that before. Seen in ICU room 2. Patient is quite agitated and restless in bed. He is constantly taking his sheet off and trying to get out of bed. Moving all 4 extremities. No facial droop noted. Altered. Awake alert however not oriented. Only able to tell me his name at this time. Patient is on Eliquis for atrial fibrillation. In the past 2022 he has had ESBL UTI and was placed on ertapenem for 14 days and discharged with a PICC line to home. In the past she has also been on warfarin. Previously he has had an echocardiogram which showed echogenic mobile structure measuring 10 x 8.3 mm noted attached to anterior mitral valve leaflet. Cardiology was consulted and this was thought to be a calcified chordae. Previously he is also had an event monitor. He did have a history of aortic valve stenosis and in October 2022 he had replacement of aortic valve with bioprosthetic valve and CABG. 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 Medications/Allergies Home Medications Medication Instructions Recorded Confirmed Last Taken Type allopurinol 100 mg tablet 100 mg PO DAILY 30 days #30 tabs 10/10/19 04/09/24 09/14/22 Rx cholecalciferol (vitamin D3) 50 50 mcg PO DAILY #30 tabs 10/10/19 04/09/24 04/08/24 Rx mcg (2,000 unit) tablet sennosides 8.6 mg tablet (senna) 17.2 mg (2 x 8.6 mg) PO BID 30 10/10/19 04/09/24 04/08/24 Rx days #120 tabs aspirin 81 mg tablet,delayed 81 mg PO QAM 04/20/21 04/09/24 04/08/24 History release (Adult Low Dose Aspirin) atorvastatin 80 mg tablet 40 mg PO QPM 04/20/21 04/09/24 04/08/24 History magnesium oxide 400 mg (241.3 mg 400 mg PO DAILY 04/20/21 04/09/24 04/08/24 History magnesium) tablet pantoprazole 40 mg tablet,delayed 40 mg PO DAILY 04/20/21 04/09/24 04/08/24 History release acetaminophen 500 mg tablet 1,000 mg PO Q6H PRN Pain 08/25/22 04/09/24 Unknown History multivitamin (One Daily 1 tab PO DAILY 08/25/22 04/09/24 04/08/24 History Multivitamin tablet) melatonin 3 mg tablet 3 - 6 mg PO BEDTIME 09/06/22 04/09/24 04/08/24 History metformin 500 mg tablet,extended 1,000 mg PO BID 09/06/22 04/09/24 04/08/24 History release 24hr (osmotic) sertraline 100 mg tablet 150 mg PO QAM depression 09/06/22 04/09/24 04/08/24 History apixaban 5 mg tablet (Eliquis) 5 mg PO BID #180 tabs 11/01/22 04/09/24 04/08/24 Rx furosemide 20 mg tablet 20 mg PO QPM 05/02/23 04/09/24 04/08/24 History amlodipine 10 mg tablet 10 mg PO DAILY 04/09/24 04/09/24 04/08/24 History ammonium lactate 12 % lotion 1 applic topical BID PRN Dry Skin 04/09/24 04/09/24 Unknown History apple cider vinegar 300 mg tablet 300 mg PO DAILY 04/09/24 04/09/24 04/08/24 History carboxymethylcellulose 1 1 drp ophthalmic (eye) QID PRN Dry 04/09/24 04/09/24 Unknown History %-glycerin 0.9 % eye gel drops Eyes clotrimazole 1 % topical cream 1 applic topical BID 04/09/24 04/09/24 Unknown History empagliflozin 25 mg tablet 25 mg PO DAILY 04/09/24 04/09/24 04/08/24 History fluoride (sodium) 1.1 % dental 1 applic dental DAILY 04/09/24 04/09/24 04/08/24 History paste (Sodium Fluoride 5000 Dry Mouth) meclizine 25 mg chewable tablet 25 mg PO TID PRN Vertigo 04/09/24 04/09/24 04/08/24 History omega 2-tik-snp-fish oil 1,000 mg 2 cap PO TID 04/09/24 04/09/24 04/08/24 History (120 mg-180 mg) capsule (Fish Oil) potassium chloride 20 mEq See Rx Instructions .Route .COMPLEX 04/09/24 04/09/24 Unknown History tablet,extended release prazosin 2 mg capsule 2 mg PO QPM 04/09/24 04/09/24 04/08/24 History sitagliptin 100 mg tablet 100 mg PO DAILY 04/09/24 04/09/24 04/08/24 History tamsulosin 0.4 mg capsule (Flomax) See Rx Instructions .Route .COMPLEX 04/09/24 04/09/24 04/08/24 History Allergies Allergy/AdvReac Type Severity Reaction Status Date / Time Penicillins Allergy Unknown Unknown Verified 12/29/23 12:21 niacin Allergy unknown Verified 12/29/23 12:21 PFSH Acute PFSH: Medical History Atherosclerosis of coronary artery Peripheral neuropathy Footdrop Lumbar stenosis with neurogenic 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 Streptococcus bovis infection 4/4 bottles of blood cx (09/30) positive for Strep bovis in 09/2019, treated with skilled nursing IV antibiotics Aortic stenosis Gout COPD (chronic obstructive pulmonary disease) Chronic anticoagulation Chronic alcohol dependence, continuous Chronic back pain Peripheral vascular disease Abdominal aortic aneurysm Hypertension Diabetes mellitus Atrial fibrillation Surgical History History of arthroscopy of right shoulder diagnostic at time of bacteremia 09/2019 History of aortic valve replacement bioprosthetic Status post cardiac revascularization with bypass aortocoronary anastomosis of five coronary vessels History of herniorrhaphy History of orthopedic surgery Right shoulder Hx of cholecystectomy Family History Father CAD (coronary artery disease) Social History Smoking and tobacco/nicotine status: former use of tobacco/nicotine Alcohol intake: current Alcohol intake frequency: few times a week Substance/Drug Use: never Household members: spouse Marital status: Current occupational status: retired Vitals/I&O/Wt Last Vital Signs Temp 98.4 F 04/09/24 13:16 Pulse 105 H 04/09/24 13:14 Resp 18 04/09/24 12:04 BP 102/65 04/09/24 13:14 Pulse Ox 95 04/09/24 13:14 O2 Del Method Room Air 04/09/24 13:14 04/09/24 04/09/24 04/09/24 06:59 14:59 22:59 Intake Total 2400 / 2400 Balance 2400 / 2400 Weight last 48 hrs Weight 87.09 kg Physical Exam Narrative: General: Alert oriented to self, patient seen laying in bed constantly moving and attempting to get out of bed. Taking his sheets off and very restless at this time. HEENT: Normocephalic, atraumatic, EOMI, on nasal cannula 2 L. Cardio: Regular rate rhythm, normal S1-S2, no gross murmurs appreciated however due to patient moving so much it is difficult to auscultate at this time. Respiratory: Clear to auscultation bilaterally no gross wheezes or rhonchi appreciated. GI: Abdomen soft, nontender, nondistended, bowel sounds + Extremities: No edema noted. Data 04/09/24 10:58 04/09/24 10:58 Micro: Microbiology 04/09/24 12:22 Blood Culture - Preliminary Blood SPECIMEN COLLECTED 04/09/24 11:38 Blood Culture - Preliminary Blood SPECIMEN COLLECTED A&P Assessment and plan (1) Diabetes mellitus: Qualifiers: Diabetes mellitus type: type 2 Diabetes mellitus middle or intermediate school principal insulin use: with middle or intermediate school principal use Diabetes mellitus complication status: with hyperglycemia Qualified Code(s): E11.65 - Type 2 diabetes mellitus with hyperglycemia; Z79.4 - intermediate (current) use of 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 Qualifiers: Cardiac valve disease etiology: etiology unspecified Qualified Code(s): I35.0 - Nonrheumatic aortic (valve) stenosis (8) Peripheral neuropathy: (9) Atherosclerosis of coronary artery: (10) Status post cardiac revascularization with bypass aortocoronary anastomosis of five coronary vessels: October 2022. (11) History of aortic valve replacement: Plan #Sepsis secondary to unknown source?criteria met by fever, lactic acid 2.3, WBC count 25,000 #Fever, altered mental status #Leukocytosis #Alcohol abuse #Atrial fibrillation. #History of CABG and aortic valve replacement 2022. #Coronary artery disease, triple-vessel status post CABG #History of mitral valve endocarditis, history of ESBL UTI, history of bacteremia #Hypertension #Hyperlipidemia #GERD #Chronic anticoagulation with Eliquis - Admit to icu for closer monitoring ?Check blood cultures, urine culture, sputum culture Gram stain ? Continue Eliquis ? Hold home amlodipine, Lasix, metformin, sitagliptin, tamsulosin ? Continue sertraline, atorvastatin, aspirin ? Will check lumbar puncture and CSF analysis studies to isolate the source, will hold Eliquis. ? CT abdomen pelvis and chest reviewed no acute pathology noticed ? Will also check MRI brain to rule out a stroke however my suspicion is low at this time. ? With history of patient's endocarditis multiple occasions of bacteremia and ESBL UTI I do suspect that his blood cultures will most likely be positive. ? Will consider imaging of lumbar spine should blood cultures turn positive. ? Continue on Zyvox and meropenem. Zyvox chosen secondary to vancomycin shortage ? Placed on [facility] protocol. I will go ahead and give 2 mg of Ativan at this time. Patient may be withdrawing. His last drink was on Tuesday. Does drink alcohol every other day 9 beers a day as per . ? Continue thiamine folic acid ? Check CRP in a.m., CMP, magnesium, CBC ? Continue on normal saline 75 cc/h. Patient did get 2 L bolus in the ER. ? Will check echocardiogram. ? Chec troponins reviewed?flat. Delta 0.5. ? Check procalcitonin ? UA is positive for protein glucose ketones and blood. Check hemoglobin A1c ? Respiratory viral panel pending at this time ? COVID and influenza are negative?tested in the ER ? CT head negative in ER ?Discussed plan with at bedside, nursing staff. ? Speech therapy eval. Full Code On Eliquis Attestations Medical Necessity Statement*: Greater than 2 midnight stay for management of fever altered mental status Diagnoses Type 2 diabetes mellitus with hyperglycemia, with long-term current use of insulin E11.65; Z79.4 Diabetes mellitus type: type 2 Diabetes mellitus skilled nursing insulin use: with skilled nursing use Diabetes mellitus complication status: with hyperglycemia Essential hypertension I10 Hypertension type: essential hypertension Other persistent atrial fibrillation I48.19 Atrial fibrillation type: other persistent Abdominal aortic aneurysm (AAA) without rupture I71.4 Presence of rupture: without rupture Peripheral vascular disease I73.9 Chronic anticoagulation Z79.01 Aortic valve stenosis, etiology of cardiac valve disease unspecified I35.0 Cardiac valve disease etiology: etiology unspecified Peripheral neuropathy G62.9 Atherosclerosis of coronary artery I25.10 Status post cardiac revascularization with bypass aortocoronary anastomosis of five coronary vessels Z95.1 History of aortic valve replacement Z95.2
[2024-04-09 16:15] LABS: Estmated Average Glucose 197; Hemoglobin A1C 8.5 % (4.0-6.0)
[2024-04-09] MEDS: LORazepam 2 mg/mL INJ 1 mL IVP (16:57)
[2024-04-09 17:16] LABS: Glucose Point of Care 167 mg/dL (70-110)
[2024-04-09] MEDS: insulin lispro 100 unit/1 mL SUBCUT (17:21)
[2024-04-09] MEDS: sodium chloride 0.9% 1,000 ML 125 ML IV (17:23)
--- NOTE | 2024-04-09 17:27 | ECG_ITS ---
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 Measurements Intervals [place] Rate: 96 P: 0 NC: 0 QRS: 69 QRSD: 93 T: 56 QT: 321 QTc: 406 Interpretive Statements ATRIAL FIBRILLATION POSSIBLE RIGHT VENTRICULAR CONDUCTION DELAY [RSR (QR) IN V1/V2] NONSPECIFIC ST & T-WAVE ABNORMALITY ABNORMAL RHYTHM ECG Compared to ECG 04/09/2024 14:36:15 Atrial flutter no longer present T-wave abnormality still present Electronically Signed On 04-09-2024 19:34:34 [employer] by Nellie Webb M.D. [email or web address]
[2024-04-09 17:49] LABS: Troponin 5 6HR 21.01 ng/L (0-15)
[2024-04-09 17:52] LABS: Troponin 5 6HR Delta -1.99 ng/L (0-12)
[2024-04-09 19:15] LABS: Adenovirus Not Detected (NOT DETECT); Chlamydia Pneumoniae Not Detected (NOT DETECT); Coronavirus 229E,HKU1,NL63,OC4 Not Detected (NOT DETECT); Human Metapneumovirus Not Detected (NOT DETECT); Human Rhinovirus/Enterovirus Not Detected (NOT DETECT); Influenza A Not Detected (NOT DETECT); Influenza A H1 Not Detected (NOT DETECT); Influenza A H1-2009 Not Detected (NOT DETECT); Influenza A H3 Not Detected (NOT DETECT); Influenza B Not Detected (NOT DETECT); Mycoplasma Pneumoniae Not Detected (NOT DETECT); Parainfluenza Virus Type 1 Not Detected (NOT DETECT); Parainfluenza Virus Type 2 Not Detected (NOT DETECT); Parainfluenza Virus Type 3 Not Detected (NOT DETECT); Parainfluenza Virus Type 4 Not Detected (NOT DETECT); Respiratory Syncytial Virus A Not Detected (NOT DETECT); Respiratory Syncytial Virus B Not Detected (NOT DETECT); SARS-COV-2 Not Detected (NOT DETECT)
[2024-04-09] MEDS: LORazepam 2 mg/mL INJ 1 mL 0.5 MG IVP (19:40)
[2024-04-09] MEDS: meropenem 1,000 mg SDV 1000 MG IVP (20:58)
[2024-04-09] MEDS: LORazepam 2 mg/mL INJ 1 mL 1 MG IVP (20:58)
[2024-04-09 21:14] LABS: Glucose Point of Care 134 mg/dL (70-110)
--- NOTE | 2024-04-09 21:42 | XRR_ITS ---
PROCEDURE INFORMATION: Exam: XR Chest Exam date and time: 04/09/2024 9:46 PM Age: 78 years old Clinical indication: Tachypnea; Prior surgery; Surgery date: 6+ months; Surgery type: Cabg TECHNIQUE: Imaging protocol: Radiologic exam of the chest. Views: 1 view. COMPARISON: CT chest abdpel w/*[id number] 04/09/2024 2:13 PM FINDINGS: Lungs: Central pulmonary vasculature congestive changes. No lobar consolidation. Pleural spaces: No pleural effusion or pneumothorax. Heart/Mediastinum: Unremarkable. No cardiomegaly. Bones/joints: Unremarkable. XR/XR chest 1V portable [id number] IMPRESSION: As above.
[2024-04-09 22:24] LABS: NT Pro B Type Natriuretic Pept 11522 pg/mL (0-450)
[2024-04-09] MEDS: morphine 4 mg/mL SDV 1 mL 2 MG IVP (23:20)
[2024-04-10] VITALS (49 sets, daily range): BP systolic 87–152; BP diastolic 54–108; PULSE 81–148; RESP 13–45; TEMP 36.6–39.6; O2SAT 87–95; BMI 26.0
[2024-04-10] MEDS: acetaminophen 1,000 MG/100 ML PIGGYBACK 400 MG IV (00:36)
[2024-04-10] MEDS: FUROsemide 10 mg/mL SDV 2mL 20 MG IVP (00:36)
[2024-04-10 03:48] LABS: C Reactive Protein 140.4 mg/L (0.0-4.9)
[2024-04-10 03:50] LABS: Bacillus cereus group Not Detected (NOT DETECT); Bacillus subtillis group Not Detected (NOT DETECT); Corynebacterium Not Detected (NOT DETECT); Cutibacterium acnes (P.acnes) Not Detected (NOT DETECT); Enterococcus Not Detected (NOT DETECT); Enterococcus faecalis Not Detected (NOT DETECT); Enterococcus faecium Not Detected (NOT DETECT); Lactobacillus species Not Detected (NOT DETECT); Listeria Not Detected (NOT DETECT); Listeria monocytogenes Not Detected (NOT DETECT); Micrococcus Not Detected (NOT DETECT); Pan Candida Not Detected (NOT DETECT); Pan Gram-Negative Not Detected (NOT DETECT); Staphylococcus epidermidis Not Detected (NOT DETECT); Staphylococcus lugdunensis Not Detected (NOT DETECT); Staphylococcus species Not Detected (NOT DETECT); Streptococcus agalactiae Not Detected (NOT DETECT); Streptococcus anginosus group Not Detected (NOT DETECT); Streptococcus pneumoniae Not Detected (NOT DETECT); Streptococcus pyogenes Not Detected (NOT DETECT); Streptococcus species Detected (NOT DETECT)
[2024-04-10] MEDS: meropenem 1,000 mg SDV 1000 MG IVP ×3 (05:24→20:57)
--- NOTE | 2024-04-10 07:33 | CTR_ITS ---
PROCEDURE INFORMATION: Exam: CTA Head With Contrast, Arteriography Exam date and time: 04/10/2024 7:46 AM Age: 78 years old Clinical indication: Cognitive deficit and weakness and other: Left sided facial weakness; Altered mental status; Additional info: Left side face droop TECHNIQUE: Imaging protocol: Computed tomographic angiography of the head with contrast. Exam focused on the arteries. 3D rendering (Not supervised by radiologist): MIP and/or 3D reconstructed images were created by the technologist. Radiation optimization: All CT scans at this facility use at least one of these dose optimization techniques: automated exposure control; mA and/or kV adjustment per patient size (includes targeted exams where dose is matched to clinical indication); or iterative reconstruction. Contrast material: OMNI 350; Contrast volume: 100 ml; Contrast route: INTRAVENOUS (IV); COMPARISON: CT head wo con* [id number] 04/09/2024 11:43 AM RADIATION DOSE METRICS: Total DLP (mGy-cm): 1046.02 FINDINGS: ANTERIOR CIRCULATION: Right internal carotid artery: There is mild stenosis of the cavernous segment and moderate stenosis of the supraclinoid segment of the right internal carotid artery secondary to calcified plaque. Right middle cerebral artery: No occlusion or significant stenosis. No aneurysm. Right anterior cerebral artery: No occlusion or significant stenosis. No aneurysm. Left internal carotid artery: There is mild stenosis of the cavernous segment and moderate stenosis of the supraclinoid segment of the left internal carotid artery secondary to calcified plaque. Left middle cerebral artery: No occlusion or significant stenosis. No aneurysm. Left anterior cerebral artery: No occlusion or significant stenosis. No aneurysm. POSTERIOR CIRCULATION: Right vertebral artery: No occlusion or significant stenosis. No aneurysm. Left vertebral artery: No occlusion or significant stenosis. No aneurysm. Basilar artery: No occlusion or significant stenosis. No aneurysm. Right posterior cerebral artery: No occlusion or significant stenosis. No aneurysm. Left posterior cerebral artery: No occlusion or significant stenosis. No aneurysm. Brain: No definite mass, mass effect, or midline shift. Cerebral ventricles: No ventriculomegaly. Bones/joints: Unremarkable. No acute fracture. Soft tissues: Unremarkable. PROCEDURE INFORMATION: Exam: CTA Neck With Contrast Exam date and time: 04/10/2024 7:46 AM Age: 78 years old Clinical indication: Cognitive deficit and weakness and other: Left sided facial weakness; Altered mental status; Additional info: Left side face droop TECHNIQUE: Imaging protocol: Computed tomographic angiography of the neck with contrast. Exam focused on the cervical segments of the vasculature. 3D rendering (Not supervised by radiologist): MIP and/or 3D reconstructed images were created by the technologist. Radiation optimization: All CT scans at this facility use at least one of these dose optimization techniques: automated exposure control; mA and/or kV adjustment per patient size (includes targeted exams where dose is matched to clinical indication); or iterative reconstruction. Contrast material: OMNI 350; Contrast volume: 100 ml; Contrast route: INTRAVENOUS (IV); COMPARISON: CT angio headneck* [id number] 02/25/2021 9:08 PM RADIATION DOSE METRICS: Total DLP (mGy-cm): 1046.02 FINDINGS: Right common carotid artery: There is moderate plaque at the right carotid bulb and bifurcation. There is stenosis of the carotid bulb measuring less than 50%. Right internal carotid artery: There is stenosis of the proximal right internal carotid artery measuring greater than 70% secondary to heavy soft and calcified plaque. The remainder appears patent. Right external carotid artery: No occlusion or stenosis of the origin. Left common carotid artery: There is heavy plaque at the left carotid bulb and bifurcation which causes carotid bulb stenosis measuring less than 50%. Left internal carotid artery: There is stenosis of the proximal left internal carotid artery measuring approximately 60%. The remainder appears patent. Left external carotid artery: No occlusion or stenosis of the origin. Right vertebral artery: There is moderate focal stenosis of the proximal right vertebral artery secondary to soft and calcified plaque. The remainder appears patent. Left vertebral artery: There is severe stenosis at the origin of the left vertebral artery secondary to soft and calcified plaque. The remainder appears patent. Soft tissues: Normal. No significant soft tissue swelling. Bones/joints: No acute fracture. CT/CT angio headne* [id number] IMPRESSION: Bilateral internal carotid artery stenosis. Otherwise patent [id number]. IMPRESSION: 1. Severe proximal right internal carotid artery stenosis. 2. Moderate proximal left internal carotid artery stenosis. 3. Mild bilateral common carotid artery stenosis. 4. Severe stenosis at the origin of the left vertebral artery. REFERENCES: NASCET CRITERIA. The degree of stenosis in the cervical segment of the internal carotid artery is based on NASCET criteria. Normal is no stenosis. Mild is less than 50% stenosis. Moderate is 50-69% stenosis. Severe is 70% to 99% stenosis. Total occlusion is no detectable patent lumen.
[2024-04-10] MEDS: iohexol 350 mg/mL 500 mL Btl (per mL) IV (08:02)
--- NOTE | 2024-04-10 08:03 | PC.NURSE ---
During this nurse's physical assessment the patient appeared to have left sided facial drooping with that being their only deficit. Charge nurse was contacted and they brought Doctor Park with them. Doctor Park ordered to get get a head and neck CTA and not to call stroke alert at the time.
--- NOTE | 2024-04-10 08:17 | W.PM.EVENTAC ---
Event Note Event Note: Approached by nurse and ICU regarding slight left facial droop noted upon evaluating the patient. He was admitted yesterday, with acute encephalopathy history of fever, concern of infection. He received a CT scan at that time. He was moving all 4 extremities and speech was decipherable. The same was present today, and no facial droop is noted on exam unless he is prompted to smile, and it is fairly subtle. It is likely this was present yesterday as well, but cannot be completely confirmed as patient was not cooperative with exam. NIHSS score is difficult at this time secondary to his pre-existing presentation. I informed patient's primary physician, and ordered a stat CTA head and neck to complete further evaluation from his admission yesterday given the facial droop today.
[2024-04-10 09:05] LABS: Basophils # 0.1 10^3/uL (0.0-0.1); Basophils % 0.2 %; Lymphocytes # 1.3 10^3/uL (0.8-4.8); Lymphocytes % 5.8 %; Mean Corpuscular HGB Conc 31.3 g/dL (30-55); Mean Corpuscular Hemoglobin 31.4 pg (27-33); Mean Corpuscular Volume 100.4 fl (82-101); Mean Platelet Volume 10.1 fL (7.4-10.4); Monocytes # 1.7 10^3/uL (0.2-0.9); Monocytes % 7.9 %; Neutrophils # 18.52 10^3/uL (1.8-7.7); Neutrophils % 85.3 %; Nucleated Red Blood Cells % 0 %; Platelet Count 226 10^3/cmm (157-399); Red Blood Count 4.58 10^6/uL (3.85-5.65); Red Cell Distribution Width 14.6 % (12.1-15.1); White Blood Count 21.71 10^3/uL (3.29-11.43)
[2024-04-10 09:28] LABS: Alanine Aminotransferase 30 U/L (0-41); Albumin Level 2.9 g/dL (3.5-5.2); Alkaline Phosphatase 274 U/L (40-130); Anion Gap 19.8 (5-19); Aspartate Amino Transferase 70 U/L (0-40); Blood Urea Nitrogen 24 mg/dL (8-23); Calcium 7.5 mg/dL (8.5-10.5); Carbon Dioxide 19 mmol/L (22-29); Chloride 108 mmol/L (98-107); Globulin 4.2 g/dL (1.3-4.6); Glucose 173 mg/dL (65-115); Magnesium 2.6 mg/dL (1.7-2.3); Osmolality Calculated 304 mOsm/kg (285-295); Phosphorus 3.8 mg/dL (2.5-4.5); Potassium 3.8 mmol/L (3.5-5.1); Sodium 143 mmol/L (136-145); Total Bilirubin 1.5 mg/dL (0.15-1.2); Total Protein 7.1 g/dL (6.6-8.7)
--- NOTE | 2024-04-10 09:30 | MR_ITS ---
WS: [id number] MRI BRAIN WITHOUT CONTRAST HISTORY: r/o stroke COMPARISON: No similar study. TECHNIQUE: Diffusion imaging, multiplanar T1, T2 and FLAIR imaging obtained. Tiny acute lacunar infarct in the posterior LEFT parietal cortex and also within the posterior LEFT f rontal cortex towards the vertex. Moderate bilateral cerebral atrophy. Mild small vessel ischemic type changes. Significant motion regis fact limiting some of the sequences. Hemosiderin noted in the LEFT frontal lobe. Ventricles and extra-axial spaces are dilated on the basis of atrophy and volume loss. No inferior displacement of cerebellar tonsils. The sella turcica and pituitary gland are unremarkabl e. Dural venous sinuses and [place] demonstrate no abnormality on this unenhanced studies. Paranasal sinuses: Clear. Mastoid air cells: Normal. Calvarium and scalp: Intact. MR/MR head wo con* [id number] IMPRESSION: 1. Some of the sequences are limited by motion artifact. 2. Two tiny acute lacunar infarcts identified. One is in the LEFT parietal cor tana and the other is in the posterior LEFT frontal cortex. 3. No hemorrhage. 4. Advanced cerebral and cerebellar atrophy with mild small vessel disease.
--- NOTE | 2024-04-10 09:43 | P.PHAVANC_ITS ---
Vancomycin Goal - Goal Vancomycin Goal:: 15-20 mg/L Vancomycin Indication:: Other (BRAND RECORDER INFECTION) - Therapy Current therapy:: Meropenem Day of therpy:: Day 1 of [] Actual body weight (kg): 192 lb 0.362 oz - Data Labs: WBC 21.71 10^3/uL (3.29-11.43) H 04/10/24 08:57 RBC 4.58 10^6/uL (3.85-5.65) 04/10/24 08:57 Hgb 14.40 g/dL (11.27-16.99) 04/10/24 08:57 Hct 46.0 % (37-53) 04/10/24 08:57 MCV 100.4 fl (82-101) D 04/10/24 08:57 MCH 31.4 pg (27-33) 04/10/24 08:57 MCHC 31.3 g/dL (30-55) 04/10/24 08:57 RDW 14.6 % (12.1-15.1) 04/10/24 08:57 Sodium 143 mmol/L (136-145) 04/10/24 08:57 Potassium 3.8 mmol/L (3.5-5.1) 04/10/24 08:57 Chloride 108 mmol/L (98-107) H 04/10/24 08:57 Carbon Dioxide 19 mmol/L (22-29) L 04/10/24 08:57 Anion Gap 19.8 (5-19) H 04/10/24 08:57 BUN 24 mg/dL (8-23) H 04/10/24 08:57 Creatinine 1.0 mg/dL (0.7-1.2) 04/10/24 08:57 GFR Calculation Not Reportable 04/10/24 08:57 Last dialysis session:: N/A Treatment plan:: new consult Regimen:: INITIAL LOADING DOSE OF 2500 MG PER DOSING PROTOCOL AND INDICATION MAINTENANCE DOSE 1250 MG Q12H Follow up:: Will continue to monitor and follow up daily.
[2024-04-10] MEDS: FUROsemide 10 mg/mL SDV 4mL 40 MG IVP (10:00)
[2024-04-10 10:03] LABS: Glucose Point of Care 160 mg/dL (70-110)
[2024-04-10] MEDS: insulin lispro 100 unit/1 mL SUBCUT ×3 (10:07→18:00)
[2024-04-10] MEDS: sennosides 8.6 mg Tablet 17.2 MG PO ×2 (11:00→18:00)
[2024-04-10] MEDS: magnesium oxide 400 mg tablet PO (11:00)
[2024-04-10] MEDS: vancomycin 2,000 MG/400 ML PIGGYBACK 200 MG IV (11:00)
[2024-04-10] MEDS: pantoprazole 40 mg SDV IVP (11:01)
[2024-04-10] MEDS: folic acid 1 mg Tablet PO (11:01)
[2024-04-10 11:41] LABS: Glucose Point of Care 167 mg/dL (70-110)
[2024-04-10 11:41] LABS: Glucose Point of Care 142 mg/dL (70-110)
[2024-04-10] MEDS: metoprolol tartrate 25 mg Tablet PO ×2 (13:28→20:57)
[2024-04-10] MEDS: vancomycin 500 MG in sodium chloride 0.9% (plus) 100 ML 200 MG IV (13:28)
[2024-04-10] MEDS: morphine 4 mg/mL SDV 1 mL 2 MG IVP ×2 (13:29→20:55)
--- NOTE | 2024-04-10 14:18 | P.PN_ITS ---
Subjective 2 Subjective: Seen this morning. Patient noted to have mild left-sided facial droop. When he smiles facial symmetry is present however left eyelid is slightly droopy. Patient did have a CTA this morning showing carotid artery stenosis bilaterally right worse than left. Patient is on Eliquis at home and not a TNKase candidate. Was febrile overnight Blood culture bottles 2 out of 4 positive at this time. Discussed with neurology over the phone. Patient is not a TNKase candidate. Discussed with over the phone as well. He has no other deficits. Strength upper and lower extremities bilaterally is equal. Patient is a lot more coherent compared to yesterday and able to have a conversation with me however is slightly lethargic and sleepy. He is on CIWA protocol at this time. Did get Ativan overnight. WBC count down to 21,000. CRP also decreased down to 140. Fluids were stopped overnight. BNP 11,000. Procalcitonin 3.10. Vitals are stable this morning. Echo negative for any vegetations at this point. Vitals/I&O/Wt Last Vital Signs Temp 100.6 F H 04/10/24 08:30 Pulse 122 H 04/10/24 10:30 Resp 24 H 04/10/24 13:29 BP 128/66 04/10/24 10:30 Pulse Ox 93 04/10/24 13:29 O2 Del Method Nasal Cannula 04/10/24 10:30 O2 Flow Rate 2 04/10/24 10:30 04/09/24 04/10/24 04/10/24 22:59 06:59 14:59 Intake Total 843.75 / 3243.75 400 / 3643.75 Output Total 1200 / 1200 2125 / 3325 1750 / 1750 Balance -356.25 / 2043.75 -1725 / 318.75 -1750 / -1750 Weight last 48 hrs Weight 87.1 kg Weight 87.1 kg Weight 95 kg Weight 87.09 kg Physical Exam 2 Narrative: General: Alert oriented x 3. Laying in bed. Much more coherent compared to yesterday. HEENT: Normocephalic, atraumatic, EOMI, on nasal cannula 2 L. Cardio: Regular rate rhythm, normal S1-S2, no gross murmurs present. Respiratory: Clear to auscultation bilaterally no gross wheezes or rhonchi appreciated. GI: Abdomen soft, nontender, nondistended, bowel sounds + Extremities: No edema noted. Neuro: Very mild left eyelid droop noted, facial symmetry present., Cranial nerves II to XII intact, patient able to follow commands and moves all 4 extremities spontaneously, strength bilateral upper and lower extremities equal 4 out of 5. Overall appears to be deconditioned and weak. ? Urinary Catheter Management: Benson: Cath Placed During This Visit: yes Reason for Continuing Indwelling Catheter: Accurate Measurement of Urinary Output in Critically Ill Patients Urinary Catheter Date of Insertion: 04/09/24 Data 04/10/24 08:57 04/10/24 08:57 Micro: Microbiology 04/09/24 11:38 Blood Culture - Preliminary Blood NEGATIVE TO DATE 04/09/24 13:14 Urine Culture - Preliminary Urine Catheterized 04/10/24 05:34 Blood Culture - Preliminary Blood SPECIMEN COLLECTED 04/10/24 05:36 Blood Culture - Preliminary Blood SPECIMEN COLLECTED 04/09/24 12:22 Blood Culture - Preliminary Blood A&P Assessment and plan (1) Diabetes mellitus: Qualifiers: Diabetes mellitus type: type 2 Diabetes mellitus nursing home insulin use: with nursing home use Diabetes mellitus complication status: with hyperglycemia Qualified Code(s): E11.65 - Type 2 diabetes mellitus with hyperglycemia; Z79.4 - group home (current) use of 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 Qualifiers: Cardiac valve disease etiology: etiology unspecified Qualified Code(s): I35.0 - Nonrheumatic aortic (valve) stenosis (8) Peripheral neuropathy: (9) Atherosclerosis of coronary artery: (10) Status post cardiac revascularization with bypass aortocoronary anastomosis of five coronary vessels: October 2022. (11) History of aortic valve replacement: Plan #Sepsis secondary to unknown source?criteria met by fever, lactic acid 2.3, WBC count 25,000 #Fever, altered mental status #Leukocytosis #Alcohol abuse #Atrial fibrillation. #History of CABG and aortic valve replacement 2022. #Coronary artery disease, triple-vessel status post CABG #History of mitral valve endocarditis, history of ESBL UTI, history of bacteremia #Hypertension #Hyperlipidemia #GERD #Chronic anticoagulation with Eliquis - Admit to icu for closer monitoring ?Check blood cultures, urine culture, sputum culture Gram stain ? Continue Eliquis ? Hold home amlodipine, Lasix, metformin, sitagliptin, tamsulosin ? Continue sertraline, atorvastatin, aspirin ? Will check lumbar puncture and CSF analysis studies to isolate the source, will hold Eliquis. ? CT abdomen pelvis and chest reviewed no acute pathology noticed ? Will also check MRI brain to rule out a stroke however my suspicion is low at this time. ? With history of patient's endocarditis multiple occasions of bacteremia and ESBL UTI I do suspect that his blood cultures will most likely be positive. ? Will consider imaging of lumbar spine should blood cultures turn positive. ? Continue on Zyvox and meropenem. Zyvox chosen secondary to vancomycin shortage ? Placed on CIWA protocol. I will go ahead and give 2 mg of Ativan at this time. Patient may be withdrawing. His last drink was on Tuesday. Does drink alcohol every other day 9 beers a day as per . ? Continue thiamine folic acid ? Check CRP in a.m., CMP, magnesium, CBC ? Continue on normal saline 75 cc/h. Patient did get 2 L bolus in the ER. ? Will check echocardiogram. ? Chec troponins reviewed?flat. Delta 0.5. ? Check procalcitonin ? UA is positive for protein glucose ketones and blood. Check hemoglobin A1c ? Respiratory viral panel pending at this time ? COVID and influenza are negative?tested in the ER ? CT head negative in ER ?Discussed plan with at bedside, nursing staff. ? Speech therapy eval. Full Code On Eliquis 04/10/2024 -Lumbar puncture pending at this time. Patient did have Eliquis yesterday morning possibly and the day before and is on aspirin daily at home. Discussed with and she states she is not sure if she took his meds on Tuesday or not. However she would like for us to do the lumbar puncture after a 48-hour washout. Will plan that for tomorrow morning. Discussed with radiology as well. Continue to hold Eliquis at this time and aspirin. ? Discussed with regarding patient's eyelid droop this morning and results of CTA head and neck. He will need vascular surgery follow-up as an outpatient. ? Await final speciation of blood cultures. ? Repeat blood cultures today ? Continue on vancomycin and meropenem. Stop Zyvox. I have been told by pharmacy that vancomycin shortage no longer present. This will also cover for possible meningitis if there is any. I have a low suspicion at this time however secondary to fever and altered mental status on initial presentation we will go ahead and obtain spinal fluid and sent for analysis. ? Also been complaining of lower back pain. I will order MRI lumbar spine today to rule out epidural abscess. ? Blood cultures 2 out of 4 positive at this time. Sensitivity and speciation pending at this time. ? TTE negative for vegetation. Will discuss with cardiology regarding MARINA. ? Respiratory viral panel negative, COVID influenza negative. ? Continue on CIWA protocol. Continue thiamine folic acid ? Speech therapy evaluated the patient. Okay to proceed with dysphagia level 5 diet at this time. Once patient more awake and alert expect his dysphagia to resolved. ? Check MRI brain to rule out stroke. ? Placed on metoprolol 25 twice daily. Patient is on any rate controlling agents at home. ? Sliding scale insulin moderate dose intensity ? Lasix 40 IV x 1 ordered. Continue atorvastatin. Hold off on amlodipine at this time. ? Tylenol for fever. ? Discussed above plan with in detail. ? Sputum Gram stain culture pending, urine culture pending. ? Time was spent today discussing with neurology and radiology and physician who assessed patient for facial droop this morning, nursing staff, over the phone. May transfer to cardiac stepdown unit. Attestations 2 Medical Necessity Statement*: Continue to hospitalize patient. For above issues. Patient will need full workup for bacteremia. Diagnoses Type 2 diabetes mellitus with hyperglycemia, with long-term current use of insulin E11.65; Z79.4 Diabetes mellitus type: type 2 Diabetes mellitus nursing home insulin use: with terminal operator use Diabetes mellitus complication status: with hyperglycemia Essential hypertension I10 Hypertension type: essential hypertension Other persistent atrial fibrillation I48.19 Atrial fibrillation type: other persistent Abdominal aortic aneurysm (AAA) without rupture I71.4 Presence of rupture: without rupture Peripheral vascular disease I73.9 Chronic anticoagulation Z79.01 Aortic valve stenosis, etiology of cardiac valve disease unspecified I35.0 Cardiac valve disease etiology: etiology unspecified Peripheral neuropathy G62.9 Atherosclerosis of coronary artery I25.10 Status post cardiac revascularization with bypass aortocoronary anastomosis of five coronary vessels Z95.1 History of aortic valve replacement Z95.2
--- NOTE | 2024-04-10 14:21 | MRR_ITS ---
PROCEDURE INFORMATION: Exam: MR Lumbar Spine Without and With Contrast Exam date and time: 04/10/2024 4:52 PM Age: 78 years old Clinical indication: Condition or disease; Other: Epidural abscess; Additional info: Rule out epidural abscess TECHNIQUE: Imaging protocol: Magnetic resonance imaging of the lumbar spine without and with contrast. Contrast material: GADOLINUM; Contrast volume: 20 ml; Contrast route: INTRAVENOUS (IV); COMPARISON: MR lumbar spine wo con* [id number] 12/31/2019 12:13 PM FINDINGS: Bones/joints: Normal alignment. Subtle multilevel vertebral body height loss, stable compared to prior study, likely related to osteoporosis. No evidence of acute fracture. Spinal epidural space: No abnormal enhancement. No evidence of epidural fluid collection or epidural abscess. Spinal cord: The distal thoracic cord terminates at a proximally T12-L1. No distal cord or cauda equina abnormality are identified. L1-L2: Trace far right lateral disc bulge. Mild facet arthropathy. Mild right neural foraminal stenosis. No other stenosis. L2-L3: No visualized disc bulge. Minimal facet arthropathy. No stenosis. L3-L4: Small diffuse disc bulge with tiny annular tear on the right. Mild bilateral facet arthropathy. No significant central canal stenosis. Mild bilateral neural foraminal stenosis. L4-L5: Mild diffuse disc bulge with small osteophytes on the right. [id number] bilateral facet arthropathy. Minimal central canal stenosis. Mild bilateral neural foraminal stenosis. L5-S1: Small diffuse disc bulge. Mild bilateral facet arthropathy. No central canal stenosis. [id number] bilateral neural foraminal stenosis. Soft tissues: The soft tissues are within normal limits. 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 Vasculature: Partially visualized 4 cm infrarenal abdominal aortic aneurysm, stable compared to prior. MR/MR lumbar spine wo/w con [id number] IMPRESSION: 1. No evidence of epidural abscess. 2. Mild multilevel degenerative change detailed above.
--- NOTE | 2024-04-10 14:52 | PC.NURSE ---
Patient's stated that they did not want Baldo Mccabe to visit the patient.
[2024-04-10] MEDS: gadobenate dimeglumine 20 mL vial 18 ML IV (17:20)
[2024-04-10 17:47] LABS: Glucose Point of Care 196 mg/dL (70-110)
[2024-04-10] MEDS: atorvastatin 40 mg Tablet PO (17:59)
[2024-04-10 18:18] LABS: INR 1.09 (0.8-1.2)
[2024-04-10 18:19] LABS: Partial Thromboplastin Time 27.4 SECONDS (23.9-36.7)
[2024-04-10 21:11] LABS: Glucose Point of Care 127 mg/dL (70-110)
[2024-04-10] MEDS: lidocaine 5% Patch 1 PATCH TOPICAL (22:08)
[2024-04-10] MEDS: vancomycin 1,250 MG/250 ML PIGGYBACK 166.67 MG IV (22:09)
[2024-04-11] VITALS (21 sets, daily range): BP systolic 114–150; BP diastolic 69–91; PULSE 72–128; RESP 16–34; TEMP 36.6–37.7; O2SAT 90–97; BMI 27.6
[2024-04-11] MEDS: morphine 4 mg/mL SDV 1 mL 2 MG IVP (01:46)
[2024-04-11] MEDS: meropenem 1,000 mg SDV 1000 MG IVP ×3 (04:06→20:14)
[2024-04-11 05:39] LABS: Basophils % 0.2 %; Eosinophils % 0.1 %; Lymphocytes # 0.9 10^3/uL (0.8-4.8); Lymphocytes % 4.8 %; Mean Corpuscular HGB Conc 32.2 g/dL (30-55); Mean Corpuscular Volume 96.2 fl (82-101); Mean Platelet Volume 10.4 fL (7.4-10.4); Monocytes # 1.2 10^3/uL (0.2-0.9); Monocytes % 6.4 %; Neutrophils # 16.48 10^3/uL (1.8-7.7); Neutrophils % 87.5 %; Nucleated Red Blood Cells % 0 %; Platelet Count 248 10^3/cmm (157-399); Red Blood Count 4.26 10^6/uL (3.85-5.65); Red Cell Distribution Width 14.5 % (12.1-15.1); White Blood Count 18.81 10^3/uL (3.29-11.43)
[2024-04-11 06:10] LABS: Alanine Aminotransferase 48 U/L (0-41); Albumin Level 2.8 g/dL (3.5-5.2); Alkaline Phosphatase 273 U/L (40-130); Anion Gap 17.6 (5-19); Aspartate Amino Transferase 122 U/L (0-40); Blood Urea Nitrogen 27 mg/dL (8-23); Calcium 7.5 mg/dL (8.5-10.5); Carbon Dioxide 22 mmol/L (22-29); Chloride 109 mmol/L (98-107); Creatinine Clr Calc Pharmacy 91.3063; Globulin 3.9 g/dL (1.3-4.6); Glucose 186 mg/dL (65-115); Magnesium 2.7 mg/dL (1.7-2.3); Osmolality Calculated 310 mOsm/kg (285-295); Phosphorus 2.5 mg/dL (2.5-4.5); Potassium 3.6 mmol/L (3.5-5.1); Sodium 145 mmol/L (136-145); Total Bilirubin 1.9 mg/dL (0.15-1.2); Total Protein 6.7 g/dL (6.6-8.7)
[2024-04-11] MEDS: sertraline 100 mg Tablet 150 MG PO (07:06)
--- NOTE | 2024-04-11 07:36 | PC.NURSE ---
Report was called to [facility]. Patient was transferred to [facility] with all their belongings without any complications. Patient was stable.
[2024-04-11] MEDS: sennosides 8.6 mg Tablet 17.2 MG PO ×2 (09:57→17:47)
[2024-04-11] MEDS: magnesium oxide 400 mg tablet PO (09:57)
[2024-04-11] MEDS: folic acid 1 mg Tablet PO (09:57)
[2024-04-11] MEDS: metoprolol tartrate 25 mg Tablet PO ×2 (09:58→20:14)
[2024-04-11] MEDS: insulin lispro 100 unit/1 mL SUBCUT ×3 (10:37→20:15)
[2024-04-11] MEDS: pantoprazole 40 mg SDV IVP (10:38)
--- NOTE | 2024-04-11 10:41 | PC.SLP ---
Pt not alert enough at this time for treatment session.
--- NOTE | 2024-04-11 11:21 | PC.SOCIAL ---
IMM Updated Updated pt's son on IMM. No questions voiced. Provided pt a copy. Initialed, dated, & timed a copy & placed in chart.
[2024-04-11 11:30] LABS: Glucose Point of Care 162 mg/dL (70-110)
[2024-04-11] MEDS: vancomycin 1,250 MG/250 ML PIGGYBACK 166.67 MG IV ×2 (12:08→22:42)
--- NOTE | 2024-04-11 13:40 | PM.PN ---
Subjective Subjective: Seen this morning. Patient drinking water when seen. No difficulty swallowing noticed and no aspiration noticed. Patient sitting up in bed. Able to have a conversation. Knows he is in the hospital is alert oriented x 3. He will be going for a lumbar puncture today. He is currently on Vanco and meropenem. Blood culture positive for Streptococcus species 2 out of 4 bottles. MRI lumbar spine reviewed?no hematoma present Patient has a persistent left-sided mild facial droop. MRI brain did show tiny acute lacunar infarcts. Patient has been off aspirin and Eliquis last 48 hours in anticipation of lumbar puncture today. Mental status is a lot better compared to admission. Vitals/I&O/Wt Last Vital Signs Temp 98.8 F 04/11/24 11:39 Pulse 83 04/11/24 11:39 Resp 19 H 04/11/24 11:39 BP 148/84 04/11/24 11:39 Pulse Ox 97 04/11/24 11:39 O2 Del Method Nasal Cannula 04/11/24 11:39 O2 Flow Rate 2.5 04/11/24 08:37 04/10/24 04/11/24 04/11/24 22:59 06:59 14:59 Intake Total 1040 / 1800 730 / 2530 960 / 960 Output Total 500 / 2900 1200 / 4100 800 / 800 Balance 540 / -1100 -470 / -1570 160 / 160 Weight last 48 hrs Weight 92.3 kg Weight 87.1 kg Weight 87.1 kg Weight 95 kg Physical Exam Narrative: General: Alert oriented x 3. Laying in bed. Able to have a conversation with me today. A lot more coherent compared to admission. HEENT: Normocephalic, atraumatic, EOMI, on nasal cannula 2 L. Cardio: Regular rate rhythm, normal S1-S2, no gross murmurs present. Respiratory: Clear to auscultation bilaterally no gross wheezes or rhonchi appreciated. GI: Abdomen soft, nontender, nondistended, bowel sounds + Extremities: No edema noted. Neuro: Very mild left eyelid droop noted, mild facial droop present., Cranial nerves II to XII intact, patient able to follow commands and moves all 4 extremities spontaneously, strength bilateral upper and lower extremities equal 4 out of 5. Overall appears to be deconditioned and weak. ? Urinary Catheter Management: Benson: Cath Placed During This Visit: yes Reason for Continuing Indwelling Catheter: Accurate Measurement of Urinary Output in Critically Ill Patients Urinary Catheter Date of Insertion: 04/09/24 Data 04/11/24 05:01 04/11/24 05:01 Micro: Microbiology 04/09/24 12:22 Blood Culture - Preliminary Blood Streptococcus species 04/09/24 13:14 Urine Culture - Final Urine Catheterized 04/10/24 05:34 Blood Culture - Preliminary Blood NEGATIVE TO DATE 04/10/24 05:36 Blood Culture - Preliminary Blood NEGATIVE TO DATE 04/10/24 17:52 Blood Culture - Preliminary Blood SPECIMEN COLLECTED 04/10/24 17:47 Blood Culture - Preliminary Blood SPECIMEN COLLECTED 04/09/24 11:38 Blood Culture - Preliminary Blood NEGATIVE TO DATE A&P Assessment and plan (1) Diabetes mellitus: Qualifiers: Diabetes mellitus type: type 2 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 Diabetes mellitus complication status: with hyperglycemia Qualified Code(s): E11.65 - Type 2 diabetes mellitus with hyperglycemia; 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 Qualifiers: Cardiac valve disease etiology: etiology unspecified Qualified Code(s): I35.0 - Nonrheumatic aortic (valve) stenosis (8) Peripheral neuropathy: (9) Atherosclerosis of coronary artery: (10) Status post cardiac revascularization with bypass aortocoronary anastomosis of five coronary vessels: October 2022. (11) History of aortic valve replacement: Plan #Sepsis secondary to unknown source?criteria met by fever, lactic acid 2.3, WBC count 25,000 #Fever, altered mental status #Leukocytosis #Alcohol abuse #Atrial fibrillation. #History of CABG and aortic valve replacement 2022. #Coronary artery disease, triple-vessel status post CABG #History of mitral valve endocarditis, history of ESBL UTI, history of bacteremia #Hypertension #Hyperlipidemia #GERD #Chronic anticoagulation with Eliquis - Admit to icu for closer monitoring ?Check blood cultures, urine culture, sputum culture Gram stain ? Continue Eliquis ? Hold home amlodipine, Lasix, metformin, sitagliptin, tamsulosin ? Continue sertraline, atorvastatin, aspirin ? Will check lumbar puncture and CSF analysis studies to isolate the source, will hold Eliquis. ? CT abdomen pelvis and chest reviewed no acute pathology noticed ? Will also check MRI brain to rule out a stroke however my suspicion is low at this time. ? With history of patient's endocarditis multiple occasions of bacteremia and ESBL UTI I do suspect that his blood cultures will most likely be positive. ? Will consider imaging of lumbar spine should blood cultures turn positive. ? Continue on Zyvox and meropenem. Zyvox chosen secondary to vancomycin shortage ? Placed on CIWA protocol. I will go ahead and give 2 mg of Ativan at this time. Patient may be withdrawing. His last drink was on Tuesday. Does drink alcohol every other day 9 beers a day as per . ? Continue thiamine folic acid ? Check CRP in a.m., CMP, magnesium, CBC ? Continue on normal saline 75 cc/h. Patient did get 2 L bolus in the ER. ? Will check echocardiogram. ? Chec troponins reviewed?flat. Delta 0.5. ? Check procalcitonin ? UA is positive for protein glucose ketones and blood. Check hemoglobin A1c ? Respiratory viral panel pending at this time ? COVID and influenza are negative?tested in the ER ? CT head negative in ER ?Discussed plan with at bedside, nursing staff. ? Speech therapy eval. Full Code On Eliquis 04/10/2024 -Lumbar puncture pending at this time. Patient did have Eliquis yesterday morning possibly and the day before and is on aspirin daily at home. Discussed with and she states she is not sure if she took his meds on Tuesday or not. However she would like for us to do the lumbar puncture after a 48-hour washout. Will plan that for tomorrow morning. Discussed with radiology as well. Continue to hold Eliquis at this time and aspirin. ? Discussed with regarding patient's eyelid droop this morning and results of CTA head and neck. He will need vascular surgery follow-up as an outpatient. ? Await final speciation of blood cultures. ? Repeat blood cultures today ? Continue on vancomycin and meropenem. Stop Zyvox. I have been told by pharmacy that vancomycin shortage no longer present. This will also cover for possible meningitis if there is any. I have a low suspicion at this time however secondary to fever and altered mental status on initial presentation we will go ahead and obtain spinal fluid and sent for analysis. ? Also been complaining of lower back pain. I will order MRI lumbar spine today to rule out epidural abscess. ? Blood cultures 2 out of 4 positive at this time. Sensitivity and speciation pending at this time. ? TTE negative for vegetation. Will discuss with cardiology regarding MARINA. ? Respiratory viral panel negative, COVID influenza negative. ? Continue on CIWA protocol. Continue thiamine folic acid ? Speech therapy evaluated the patient. Okay to proceed with dysphagia level 5 diet at this time. Once patient more awake and alert expect his dysphagia to resolved. ? Check MRI brain to rule out stroke. ? Placed on metoprolol 25 twice daily. Patient is on any rate controlling agents at home. ? Sliding scale insulin moderate dose intensity ? Lasix 40 IV x 1 ordered. Continue atorvastatin. Hold off on amlodipine at this time. ? Tylenol for fever. ? Discussed above plan with in detail. ? Sputum Gram stain culture pending, urine culture pending. ? Time was spent today discussing with neurology and radiology and physician who assessed patient for facial droop this morning, nursing staff, over the phone. 04/11/2024 -Lumbar puncture today. After procedure may be start aspirin and Eliquis. ? Results of CTA head and neck reviewed with family. He does have bilateral carotid artery stenosis and will need vascular surgery follow-up as an outpatient ? Blood cultures 2 out of 4 bottles positive for Streptococcus species. Final sensitivity pending. ? Continue vancomycin and meropenem to cover for possible meningitis and bacteremia. ? TTE negative for vegetation. Will discuss with cardiology regarding MARINA. Consult cardiology today. ? Speech therapy following patient. Patient is on regular thin liquids at this time. ? MRI brain did showed tiny acute lacunar infarcts in same territory. Embolic stroke not definitive. Discussed with radiology. Patient does have history of atrial fibrillation and prior to admission is unsure if he took his Eliquis for a day or 2 due to altered mental status. Did discuss with neurology. Patient is not a candidate for TNKase secondary to Eliquis use. ? Continue metoprolol 25 twice daily ? Patient did get Lasix 40 IV x 1. Patient is 1 L negative since admission ? Sputum Gram stain culture pending, urine culture pending ? Updated family over the phone. Order PT OT ? Increase atorvastatin to 80 mg daily. ? Going forward patient will be on aspirin and Eliquis. ? Patient does have risk factors for endocarditis. He has history of mitral valve endocarditis in the past and has a bioprosthetic aortic valve. He has had bacteremia before and ESBL UTIs. Will discuss with cardiology regarding MARINA. Consider ID consult. Attestations Medical Necessity Statement*: Continue to hospitalize patient. For above issues. Patient will need full workup for bacteremia. 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 Diabetes mellitus complication status: with hyperglycemia Essential hypertension I10 Hypertension type: essential hypertension Other persistent atrial fibrillation I48.19 Atrial fibrillation type: other persistent Abdominal aortic aneurysm (AAA) without rupture I71.4 Presence of rupture: without rupture Peripheral vascular disease I73.9 Chronic anticoagulation Z79.01 Aortic valve stenosis, etiology of cardiac valve disease unspecified I35.0 Cardiac valve disease etiology: etiology unspecified Peripheral neuropathy G62.9 Atherosclerosis of coronary artery I25.10 Status post cardiac revascularization with bypass aortocoronary anastomosis of five coronary vessels Z95.1 History of aortic valve replacement Z95.2
[2024-04-11 16:37] LABS: Glucose Point of Care 93 mg/dL (70-110)
[2024-04-11] MEDS: atorvastatin 40 mg Tablet 80 MG PO (17:47)
[2024-04-11] MEDS: apixaban 5 mg Tablet PO (17:47)
[2024-04-11 20:15] LABS: Glucose Point of Care 199 mg/dL (70-110)
[2024-04-12] VITALS (9 sets, daily range): BP systolic 121–157; BP diastolic 74–92; PULSE 62–96; RESP 17–22; TEMP 36.4–37.4; O2SAT 90–95
[2024-04-12] MEDS: meropenem 1,000 mg SDV 1000 MG IVP ×2 (03:17→13:21)
[2024-04-12 05:24] LABS: Basophils % 0.2 %; Eosinophils # 0.1 10^3/uL (0.0-0.8); Hematocrit 40.2 % (37-53); Lymphocytes # 1.3 10^3/uL (0.8-4.8); Lymphocytes % 9.5 %; Mean Corpuscular HGB Conc 31.6 g/dL (30-55); Mean Corpuscular Hemoglobin 31.3 pg (27-33); Mean Platelet Volume 10.4 fL (7.4-10.4); Monocytes # 0.9 10^3/uL (0.2-0.9); Monocytes % 6.6 %; Neutrophils # 11.37 10^3/uL (1.8-7.7); Neutrophils % 81.9 %; Nucleated Red Blood Cells % 0 %; Platelet Count 214 10^3/cmm (157-399); Red Blood Count 4.06 10^6/uL (3.85-5.65); Red Cell Distribution Width 14.3 % (12.1-15.1); White Blood Count 13.89 10^3/uL (3.29-11.43)
[2024-04-12 05:44] LABS: Anion Gap 14.5 (5-19); Blood Urea Nitrogen 23 mg/dL (8-23); Calcium 7.7 mg/dL (8.5-10.5); Carbon Dioxide 22 mmol/L (22-29); Chloride 102 mmol/L (98-107); Creatinine Clr Calc Pharmacy 91.3063; Glucose 164 mg/dL (65-115); Magnesium 2.3 mg/dL (1.7-2.3); Osmolality Calculated 287 mOsm/kg (285-295); Potassium 3.5 mmol/L (3.5-5.1); Sodium 135 mmol/L (136-145)
[2024-04-12] MEDS: sertraline 100 mg Tablet 150 MG PO (05:46)
[2024-04-12] MEDS: aspirin 81 mg EC Tablet PO (05:46)
[2024-04-12 06:11] LABS: Glucose Point of Care 141 mg/dL (70-110)
--- NOTE | 2024-04-12 07:57 | PM.CONSULT ---
Providers/Reason For Consult Consulting Physician/Specialty*: Gordon Johnson MD/ Cardiology Reason for Consult*: Rule out endocarditis/ transesophageal echocardiogram Requesting Physician: Dr Dick Attending Physician: Alexa Mcdowell MD Primary Care Provider: Kaila Mohr MD History of Present Illness History of Present Illness Azam Mccabe is a 78 year old male with past medical history of coronary artery disease, atrial fibrillation, endocarditis, bioprosthetic aortic valve presented to hospital with altered mental status. Was found to have acute lacunar infarcts. Also was septic. Blood cultures growing Streptococcus with preliminary result positive for strep bovis. Cardiology consulted for transfer to long-term echocardiogram to rule out endocarditis. Review of Systems General: Reports: ROS unobtainable due to mental status Medications/Allergies Home Medications Medication Instructions Recorded Confirmed Last Taken Type allopurinol 100 mg tablet 100 mg PO DAILY 30 days #30 tabs 10/10/19 04/09/24 09/14/22 Rx cholecalciferol (vitamin D3) 50 50 mcg PO DAILY #30 tabs 10/10/19 04/09/24 04/08/24 Rx mcg (2,000 unit) tablet sennosides 8.6 mg tablet (senna) 17.2 mg (2 x 8.6 mg) PO BID 30 10/10/19 04/09/24 04/08/24 Rx days #120 tabs aspirin 81 mg tablet,delayed 81 mg PO QAM 04/20/21 04/09/24 04/08/24 History release (Adult Low Dose Aspirin) atorvastatin 80 mg tablet 40 mg PO QPM 04/20/21 04/09/24 04/08/24 History magnesium oxide 400 mg (241.3 mg 400 mg PO DAILY 04/20/21 04/09/24 04/08/24 History magnesium) tablet pantoprazole 40 mg tablet,delayed 40 mg PO DAILY 04/20/21 04/09/24 04/08/24 History release acetaminophen 500 mg tablet 1,000 mg PO Q6H PRN Pain 08/25/22 04/09/24 Unknown History multivitamin (One Daily 1 tab PO DAILY 08/25/22 04/09/24 04/08/24 History Multivitamin tablet) melatonin 3 mg tablet 3 - 6 mg PO BEDTIME 09/06/22 04/09/24 04/08/24 History metformin 500 mg tablet,extended 1,000 mg PO BID 09/06/22 04/09/24 04/08/24 History release 24hr (osmotic) sertraline 100 mg tablet 150 mg PO QAM depression 09/06/22 04/09/24 04/08/24 History apixaban 5 mg tablet (Eliquis) 5 mg PO BID #180 tabs 11/01/22 04/09/24 04/08/24 Rx furosemide 20 mg tablet 20 mg PO QPM 05/02/23 04/09/24 04/08/24 History amlodipine 10 mg tablet 10 mg PO DAILY 04/09/24 04/09/24 04/08/24 History ammonium lactate 12 % lotion 1 applic topical BID PRN Dry Skin 04/09/24 04/09/24 Unknown History apple cider vinegar 300 mg tablet 300 mg PO DAILY 04/09/24 04/09/24 04/08/24 History carboxymethylcellulose 1 1 drp ophthalmic (eye) QID PRN Dry 04/09/24 04/09/24 Unknown History %-glycerin 0.9 % eye gel drops Eyes clotrimazole 1 % topical cream 1 applic topical BID 04/09/24 04/09/24 Unknown History empagliflozin 25 mg tablet 25 mg PO DAILY 04/09/24 04/09/24 04/08/24 History fluoride (sodium) 1.1 % dental 1 applic dental DAILY 04/09/24 04/09/24 04/08/24 History paste (Sodium Fluoride 5000 Dry Mouth) meclizine 25 mg chewable tablet 25 mg PO TID PRN Vertigo 04/09/24 04/09/24 04/08/24 History omega 6-box-gsd-fish oil 1,000 mg 2 cap PO TID 04/09/24 04/09/24 04/08/24 History (120 mg-180 mg) capsule (Fish Oil) potassium chloride 20 mEq See Rx Instructions .Route .COMPLEX 04/09/24 04/09/24 Unknown History tablet,extended release prazosin 2 mg capsule 2 mg PO QPM 04/09/24 04/09/24 04/08/24 History sitagliptin 100 mg tablet 100 mg PO DAILY 04/09/24 04/09/24 04/08/24 History tamsulosin 0.4 mg capsule (Flomax) See Rx Instructions .Route .COMPLEX 04/09/24 04/09/24 04/08/24 History Allergies Allergy/AdvReac Type Severity Reaction Status Date / Time Penicillins Allergy Unknown Unknown Verified 12/29/23 12:21 niacin Allergy unknown Verified 12/29/23 12:21 Current Medications Generic Name Dose Route Start Last Admin Trade Name Freq PRN Reason Stop Dose Admin Apixaban 5 mg 04/09/24 18:00 04/11/24 17:47 Apixaban 5 Mg Tablet PO 5 mg BID DAVID Administration Aspirin 81 mg 04/10/24 06:00 04/12/24 05:46 Aspirin 81 Mg Ec Tablet PO 81 mg QAM DAVID Administration Atorvastatin Calcium 80 mg 04/11/24 18:00 04/11/24 17:47 Atorvastatin 40 Mg Tablet PO 80 mg QPM DAVID Administration Folic Acid 1 mg 04/10/24 09:00 04/11/24 09:57 Folic Acid 1 Mg Tablet PO 1 mg DAILY DAVID Administration Vancomycin HCl 1,250 mg in 250 mls @ 166.667 mls/hr 04/10/24 23:00 04/12/24 00:17 Vancocin IV Infused Q12H DAVID Infusion Insulin Human Lispro 0 unit 04/09/24 18:00 04/11/24 20:15 Insulin Lispro 100 Unit/1 Ml SUBCUT 6 unit WM&BEDTIME DAVID Administration Protocol Lorazepam 1 mg 04/09/24 20:46 04/09/24 20:58 Lorazepam 2 Mg/Ml Inj 1 Ml IVP 1 mg PRN PRN Administration WITHDRAWAL Protocol Magnesium Oxide 400 mg 04/10/24 09:00 04/11/24 09:57 Magnesium Oxide 400 Mg Tablet PO 400 mg DAILY DAVID Administration Meropenem 1,000 mg 04/09/24 20:00 04/12/24 03:17 Meropenem 1,000 Mg Sdv IVP 1,000 mg Q8H DAVID Administration Protocol Metoprolol Tartrate 25 mg 04/10/24 13:00 04/11/24 20:14 Metoprolol Tartrate 25 Mg Tablet PO 25 mg BID@0900,2100 DAVID Administration Morphine Sulfate 2 mg 04/10/24 15:30 04/11/24 01:46 Morphine 4 Mg/Ml Sdv 1 Ml IVP 2 mg Q4H PRN Administration SEVERE PAIN Pantoprazole Sodium 40 mg 04/10/24 09:00 04/11/24 10:38 Pantoprazole 40 Mg Sdv IVP 40 mg DAILY DAVID Administration Senna 17.2 mg 04/09/24 18:00 04/11/24 17:47 Sennosides 8.6 Mg Tablet PO 17.2 mg BID DAVID Administration Sertraline HCl 150 mg 04/10/24 06:00 04/12/24 05:46 Sertraline 100 Mg Tablet PO 150 mg QAM DAVID Administration Thiamine HCl 100 mg 04/10/24 09:00 04/11/24 10:38 Thiamine 100 Mg/Ml Sdv IVP 100 mg DAILY DAVID Administration PFSH Acute PFSH: Medical History Atherosclerosis of coronary artery Peripheral neuropathy Footdrop Lumbar stenosis with neurogenic 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 Streptococcus bovis infection / bottles of blood cx (09/30) positive for Strep bovis in 09/2019, treated with group home IV antibiotics Aortic stenosis Gout COPD (chronic obstructive pulmonary disease) Chronic anticoagulation Chronic alcohol dependence, continuous Chronic back pain Peripheral vascular disease Abdominal aortic aneurysm Hypertension Diabetes mellitus Atrial fibrillation Surgical History History of arthroscopy of right shoulder diagnostic at time of bacteremia 09/2019 History of aortic valve replacement bioprosthetic Status post cardiac revascularization with bypass aortocoronary anastomosis of five coronary vessels History of herniorrhaphy History of orthopedic surgery Right shoulder Hx of cholecystectomy Family History Father CAD (coronary artery disease) Social History Smoking and tobacco/nicotine status: former use of tobacco/nicotine Alcohol intake: current Alcohol intake frequency: few times a week Substance/Drug Use: never Household members: spouse Marital status: Current occupational status: retired Vitals/I&O/Wt Last Vital Signs Temp 99.3 F 04/12/24 07:32 Pulse 96 04/12/24 07:32 Resp 18 04/12/24 07:32 BP 152/92 04/12/24 07:32 Pulse Ox 90 04/12/24 07:32 O2 Del Method Room Air 04/12/24 07:32 O2 Flow Rate 2 04/11/24 20:09 04/11/24 04/12/24 04/12/24 22:59 06:59 14:59 Intake Total 1029 / 1989 450 / 2440 Output Total 800 / 1600 600 / 2200 Balance 230 / 390 -150 / 240 Weight last 48 hrs Weight 203 lb 7.787 oz Weight 203 lb 7.787 oz Physical Exam Narrative: GENERAL: Patient is alert, confused NECK: No jugular vein distension. [] HEENT: No cyanosis. No icterus. No pallor. [] HEART: Regular S1 and S2. No murmur, rub or gallop. [] LUNGS: Clear to auscultate bilaterally. [] CENTRAL NERVOUS SYSTEM: Grossly nonfocal. [] EXTREMITIES: Lower extremities with 1+ edema bilaterally Urinary Catheter Management: Benson: Cath Placed During This Visit: yes Reason for Continuing Indwelling Catheter: Accurate Measurement of Urinary Output in Critically Ill Patients Urinary Catheter Date of Insertion: 04/09/24 Data 04/13/24 05:41 04/13/24 05:46 Micro: Microbiology 04/10/24 17:47 Blood Culture - Preliminary Blood NEGATIVE TO DATE 04/10/24 17:52 Blood Culture - Preliminary Blood NEGATIVE TO DATE 04/09/24 12:22 Blood Culture - Preliminary Blood Streptococcus species 04/09/24 13:14 Urine Culture - Final Urine Catheterized 04/10/24 05:34 Blood Culture - Preliminary Blood NEGATIVE TO DATE 04/10/24 05:36 Blood Culture - Preliminary Blood NEGATIVE TO DATE A&P Assessment and plan (1) Endocarditis: (2) History of aortic valve replacement: (3) Status post cardiac revascularization with bypass aortocoronary anastomosis of five coronary vessels: (4) Atherosclerosis of coronary artery: (5) Hypertension: Qualifiers: Hypertension type: essential hypertension Qualified Code(s): I10 - Essential (primary) hypertension Plan Patient's presentation is concerning for endocarditis with the positive blood culture with strep bovis, presence of prosthetic aortic valve, sepsis. We will assess for vegetations with transesophageal echocardiogram. Transthoracic echo did not show significant vegetations. Acute lacunar CVA could be septic phenomenon. Infectious disease on board. Antibiotic therapy per their recommendations We will proceed with transesophageal echocardiogram tomorrow. N.p.o. past midnight. Risks and benefits of the procedure been discussed with patient and family. Thank you for involving us with care of this patient. We will continue to follow. Please call with questions. Consult Attestations Medical Necessity Statement: Care expected to cross 2 midnights. Coding Level of Care Code Acute Code for [facility] Fwd Diagnoses Endocarditis I38 History of aortic valve replacement Z95.2 Status post cardiac revascularization with bypass aortocoronary anastomosis of five coronary vessels Z95.1 Atherosclerosis of coronary artery I25.10 Essential hypertension I10 Hypertension type: essential hypertension
--- NOTE | 2024-04-12 10:12 | PC.SLP ---
Pt was attempting to fall asleep off and on while therapist was in the room. Therapist will attempt later today.
[2024-04-12 10:17] LABS: Vancomycin Trough 16.9 ug/mL (10-15)
[2024-04-12] MEDS: magnesium oxide 400 mg tablet PO (10:46)
[2024-04-12] MEDS: sennosides 8.6 mg Tablet 17.2 MG PO ×2 (10:46→19:01)
[2024-04-12] MEDS: apixaban 5 mg Tablet PO ×2 (10:46→19:01)
[2024-04-12] MEDS: folic acid 1 mg Tablet PO (10:46)
[2024-04-12] MEDS: metoprolol tartrate 25 mg Tablet PO ×2 (10:47→21:06)
[2024-04-12] MEDS: pantoprazole 40 mg SDV IVP (10:47)
[2024-04-12 11:22] LABS: Glucose Point of Care 168 mg/dL (70-110)
[2024-04-12] MEDS: vancomycin 1,250 MG/250 ML PIGGYBACK 166.67 MG IV (11:25)
--- NOTE | 2024-04-12 12:31 | P.CONIM_ITS ---
Providers/Reason For Consult 2 Consulting Physician/Specialty*: Dr. Faye Feliciano/ Infectiosu Disease Reason for Consult*: Endocarditis Requesting Physician: Carol Dick MD Attending Physician: Alexa Mcdowell MD Primary Care Provider: Kaila Mhor MD History of Present Illness History of Present Illness Azam Mccabe is a 78 year old male with a past medical history of aortic aneurysm, aortic stenosis status post aortic valve replacement in August 2022, history of aortic valve endocarditis in 2019, history of right shoulder septic arthritis 2019, history of mitral valve endocarditis ? October 2022. His other comorbidities include COPD, diabetes mellitus, A-fib on chronic anticoagulation, peripheral vascular disease, history of alcohol abuse and dependence. Patient is currently admitted to the hospital after presenting here on April 09, 2024 with altered mental status. Patient had been having fevers for 2 to 3 days prior to admission and then became increasingly confused. Patient does have a history of drinking over 9 beers a day. On exam he was confused and disoriented. During course of evaluation he has been found to have a CVA, MRI has shown lacunar infarcts in the parietal and frontal lobes, he is on [facility] monitoring for concerns of alcohol withdrawal, blood culture has returned positive for Streptococcus species. Per discussion with micro lab these are preliminary strep bovis. Patient is unable to provide significant history at this time as he continues to be disoriented. He tells me his name, his birthday correctly but is disoriented as to the ER. He keeps repeating I remember you do I have not seen the gentleman since 2019. Review of Systems 2 General: Reports: ROS unobtainable due to mental status Medications/Allergies Home Medications Medication Instructions Recorded Confirmed Last Taken Type allopurinol 100 mg tablet 100 mg PO DAILY 30 days #30 tabs 10/10/19 04/09/24 09/14/22 Rx cholecalciferol (vitamin D3) 50 50 mcg PO DAILY #30 tabs 10/10/19 04/09/24 04/08/24 Rx mcg (2,000 unit) tablet sennosides 8.6 mg tablet (senna) 17.2 mg (2 x 8.6 mg) PO BID 30 10/10/19 04/09/24 04/08/24 Rx days #120 tabs aspirin 81 mg tablet,delayed 81 mg PO QAM 04/20/21 04/09/24 04/08/24 History release (Adult Low Dose Aspirin) atorvastatin 80 mg tablet 40 mg PO QPM 04/20/21 04/09/24 04/08/24 History magnesium oxide 400 mg (241.3 mg 400 mg PO DAILY 04/20/21 04/09/24 04/08/24 History magnesium) tablet pantoprazole 40 mg tablet,delayed 40 mg PO DAILY 04/20/21 04/09/24 04/08/24 History release acetaminophen 500 mg tablet 1,000 mg PO Q6H PRN Pain 08/25/22 04/09/24 Unknown History multivitamin (One Daily 1 tab PO DAILY 08/25/22 04/09/24 04/08/24 History Multivitamin tablet) melatonin 3 mg tablet 3 - 6 mg PO BEDTIME 09/06/22 04/09/24 04/08/24 History metformin 500 mg tablet,extended 1,000 mg PO BID 09/06/22 04/09/24 04/08/24 History release 24hr (osmotic) sertraline 100 mg tablet 150 mg PO QAM depression 09/06/22 04/09/24 04/08/24 History apixaban 5 mg tablet (Eliquis) 5 mg PO BID #180 tabs 11/01/22 04/09/24 04/08/24 Rx furosemide 20 mg tablet 20 mg PO QPM 05/02/23 04/09/24 04/08/24 History amlodipine 10 mg tablet 10 mg PO DAILY 04/09/24 04/09/24 04/08/24 History ammonium lactate 12 % lotion 1 applic topical BID PRN Dry Skin 04/09/24 04/09/24 Unknown History apple cider vinegar 300 mg tablet 300 mg PO DAILY 04/09/24 04/09/24 04/08/24 History carboxymethylcellulose 1 1 drp ophthalmic (eye) QID PRN Dry 04/09/24 04/09/24 Unknown History %-glycerin 0.9 % eye gel drops Eyes clotrimazole 1 % topical cream 1 applic topical BID 04/09/24 04/09/24 Unknown History empagliflozin 25 mg tablet 25 mg PO DAILY 04/09/24 04/09/24 04/08/24 History fluoride (sodium) 1.1 % dental 1 applic dental DAILY 04/09/24 04/09/2404/08/24 History paste (Sodium Fluoride 5000 Dry Mouth) meclizine 25 mg chewable tablet 25 mg PO TID PRN Vertigo 04/09/24 04/09/24 04/08/24 History omega [id number]-fish oil 1,000 mg 2 cap PO TID 04/09/24 04/09/24 04/08/24 History (120 mg-180 mg) capsule (Fish Oil) potassium chloride 20 mEq See Rx Instructions .Route .COMPLEX 04/09/24 04/09/24 Unknown History tablet,extended release prazosin 2 mg capsule 2 mg PO QPM 04/09/24 04/09/24 04/08/24 History sitagliptin 100 mg tablet 100 mg PO DAILY 04/09/24 04/09/24 04/08/24 History tamsulosin 0.4 mg capsule (Flomax) See Rx Instructions .Route .COMPLEX 04/09/24 04/09/24 04/08/24 History Allergies Allergy/AdvReac Type Severity Reaction Status Date / Time Penicillins Allergy Unknown Unknown Verified 12/29/23 12:21 niacin Allergy unknown Verified 12/29/23 12:21 Current Medications Generic Name Dose Route Start Last Admin Trade Name Freq PRN Reason Stop Dose Admin Apixaban 5 mg 04/09/24 18:00 04/12/24 10:46 Apixaban 5 Mg Tablet PO 5 mg BID DAVID Administration Aspirin 81 mg 04/10/24 06:00 04/12/24 05:46 Aspirin 81 Mg Ec Tablet PO 81 mg QAM DAVID Administration Atorvastatin Calcium 80 mg 04/11/24 18:00 04/11/24 17:47 Atorvastatin 40 Mg Tablet PO 80 mg QPM DAVID Administration Folic Acid 1 mg 04/10/24 09:00 04/12/24 10:46 Folic Acid 1 Mg Tablet PO 1 mg DAILY DAVID Administration Vancomycin HCl 1,250 mg in 250 mls @ 166.667 mls/hr 04/10/24 23:00 04/12/24 11:25 Vancocin IV 166.67 mls/hr Q12H DAVID Administration Insulin Human Lispro 0 unit 04/09/24 18:00 04/12/24 10:48 Insulin Lispro 100 Unit/1 Ml SUBCUT Not Given WM&BEDTIME DAVID Protocol Lorazepam 1 mg 04/09/24 20:46 04/09/24 20:58 Lorazepam 2 Mg/Ml Inj 1 Ml IVP 1 mg PRN PRN Administration WITHDRAWAL Protocol Magnesium Oxide 400 mg 04/10/24 09:00 04/12/24 10:46 Magnesium Oxide 400 Mg Tablet PO 400 mg DAILY DAVID Administration Meropenem 1,000 mg 04/09/24 20:00 04/12/24 03:17 Meropenem 1,000 Mg Sdv IVP 1,000 mg Q8H DAVID Administration Protocol Metoprolol Tartrate 25 mg 04/10/24 13:00 04/12/24 10:47 Metoprolol Tartrate 25 Mg Tablet PO 25 mg BID@0900,2100 DAVID Administration Morphine Sulfate 2 mg 04/10/24 15:30 04/11/24 01:46 Morphine 4 Mg/Ml Sdv 1 Ml IVP 2 mg Q4H PRN Administration SEVERE PAIN Pantoprazole Sodium 40 mg 04/10/24 09:00 04/12/24 10:47 Pantoprazole 40 Mg Sdv IVP 40 mg DAILY DAVID Administration Senna 17.2 mg 04/09/24 18:00 04/12/24 10:46 Sennosides 8.6 Mg Tablet PO 17.2 mg BID DAVID Administration Sertraline HCl 150 mg 04/10/24 06:00 04/12/24 05:46 Sertraline 100 Mg Tablet PO 150 mg QAM DAVID Administration Thiamine HCl 100 mg 04/10/24 09:00 04/12/24 10:47 Thiamine 100 Mg/Ml Sdv IVP 100 mg DAILY DAVID Administration PFSH Acute 2 PFSH: Medical History Atherosclerosis of coronary artery Peripheral neuropathy [place] Lumbar stenosis with neurogenic 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 Streptococcus bovis infection 4/4 bottles of blood cx (09/30) positive for Strep bovis in 09/2019, treated with prison IV antibiotics Aortic stenosis Gout COPD (chronic obstructive pulmonary disease) Chronic anticoagulation Chronic alcohol dependence, continuous Chronic back pain Peripheral vascular disease Abdominal aortic aneurysm Hypertension Diabetes mellitus Atrial fibrillation Surgical History History of arthroscopy of right shoulder diagnostic at time of bacteremia 09/2019 History of aortic valve replacement bioprosthetic Status post cardiac revascularization with bypass aortocoronary anastomosis of five coronary vessels History of herniorrhaphy History of orthopedic surgery Right shoulder Hx of cholecystectomy Family History Father CAD (coronary artery disease) Social History Smoking and tobacco/nicotine status: former use of tobacco/nicotine Alcohol intake: current Alcohol intake frequency: few times a week Substance/Drug Use: never Household members: spouse Marital status: Current occupational status: retired Vitals/I&O/Wt Last Vital Signs Temp 99.3 F 04/12/24 07:32 Pulse 89 04/12/24 10:27 Resp 22 H 04/12/24 10:27 BP 152/92 04/12/24 07:32 Pulse Ox 92 04/12/24 10:46 O2 Del Method Room Air 04/12/24 10:46 O2 Flow Rate 2 04/11/24 20:09 04/11/24 04/12/24 04/12/24 22:59 06:59 14:59 Intake Total 1030 / 1990 450 / 2440 240 / 240 Output Total 800 / 1600 600 / 2200 Balance 230 / 390 -150 / 240 240 / 240 Weight last 48 hrs Weight 92.3 kg Weight 92.3 kg Physical Exam 2 Narrative: General: No acute distress, AO x2 HEENT: PERRLA, pupils bilaterally equal and reactive, pallors not present Chest: Normal vesicular breath sounds, no added sounds, equal good air entry bilaterally CVS: S1-S2 regular, no murmurs, no tachycardia, no gallops, no rubs Abdomen: Soft, nontender, no organomegaly, bowel sounds present Neuro: Speech is slurred, he moves all extremities while laying in bed but only follows commands intermittently., no facial deformity, AO x2 Urinary Catheter Management: Benson: Cath Placed During This Visit: yes Reason for Continuing Indwelling Catheter: Accurate Measurement of Urinary Output in Critically Ill Patients Urinary Catheter Date of Insertion: 04/09/24 Data 04/13/24 05:41 04/13/24 05:46 Micro: Microbiology 04/10/24 17:47 Blood Culture - Preliminary Blood NEGATIVE TO DATE 04/10/24 17:52 Blood Culture - Preliminary Blood NEGATIVE TO DATE 04/09/24 12:22 Blood Culture - Preliminary Blood Streptococcus species 04/09/24 13:14 Urine Culture - Final Urine Catheterized NO GROWTH AT 36-48 HOURS Other data: Radiology Impressions Head CT 04/09/24 11:26 IMPRESSION: 1. No evidence of intracranial hemorrhage or mass effect. 2. Moderate small vessel changes. Moderate parenchymal volume loss. 3. Intracranial vascular calcification. LEFT 4. No acute intracranial findings. Notified Cha Castañeda MD at 04/09/2024 11:55 AM. Chest/Abdomen/Pelvis CT 04/09/24 13:30 IMPRESSION: 1. Chronic emphysematous changes. Bibasilar atelectasis. 2. Marked cardiomegaly with coronary artery calcification. 3. Fusiform abdominal aortic aneurysm measuring 3.5 x 3.4 x 4.7 cm AP by transverse by craniocaudal stable compared to previous 4. Stable horseshoe kidney 5. Benson catheter. 6. Sigmoid diverticulosis. No evidence of acute diverticulitis. 7. No other acute findings Chest X-Ray 04/09/24 21:42 IMPRESSION: As above. Head/Neck CTA 04/10/24 07:33 IMPRESSION: Bilateral internal carotid artery stenosis. Otherwise patent [id number]. IMPRESSION: 1. Severe proximal right internal carotid artery stenosis. 2. Moderate proximal left internal carotid artery stenosis. 3. Mild bilateral common carotid artery stenosis. 4. Severe stenosis at the origin of the left vertebral artery. REFERENCES: NASCET CRITERIA. The degree of stenosis in the cervical segment of the internal carotid artery is based on NASCET criteria. Normal is no stenosis. Mild is less than 50% stenosis. Moderate is 50-69% stenosis. Severe is 70% to 99% stenosis. Total occlusion is no detectable patent lumen. Head MRI 04/10/24 09:30 IMPRESSION: 1. Some of the sequences are limited by motion artifact. 2. Two tiny acute lacunar infarcts identified. One is in the LEFT parietal cortex and the other is in the posterior LEFT frontal cortex. 3. No hemorrhage. 4. Advanced cerebral and cerebellar atrophy with mild small vessel disease. Lumbar Spine MRI 04/10/24 14:21 IMPRESSION: 1. No evidence of epidural abscess. 2. Mild multilevel degenerative change detailed above. Laboratory Results WBC 13.89 10^3/uL (3.29-11.43) H 04/12/24 05:00 RBC 4.06 10^6/uL (3.85-5.65) 04/12/24 05:00 Hgb 12.70 g/dL (11.27-16.99) 04/12/24 05:00 Hct 40.2 % (37-53) 04/12/24 05:00 MCV 99.0 fl (82-101) 04/12/24 05:00 MCH 31.3 pg (27-33) 04/12/24 05:00 MCHC 31.6 g/dL (30-55) 04/12/24 05:00 RDW 14.3 % (12.1-15.1) 04/12/24 05:00 Plt Count 214 10^3/cmm (157-399) 04/12/24 05:00 MPV 10.4 fL (7.4-10.4) 04/12/24 05:00 Neut % (Auto) 81.9 % 04/12/24 05:00 Lymph % (Auto) 9.5 % 04/12/24 05:00 [place] % (Auto) 6.6 % 04/12/24 05:00 Eos % (Auto) 1.0 % 04/12/24 05:00 Baso % (Auto) 0.2 % 04/12/24 05:00 Neut # (Auto) 11.37 10^3/uL (1.8-7.7) H 04/12/24 05:00 Lymph # (Auto) 1.3 10^3/uL (0.8-4.8) 04/12/24 05:00 [place] # (Auto) 0.9 10^3/uL (0.2-0.9) 04/12/24 05:00 Eos # (Auto) 0.1 10^3/uL (0.0-0.8) 04/12/24 05:00 Baso # (Auto) 0.0 10^3/uL (0.0-0.1) 04/12/24 05:00 Nucleated RBC % (auto) 0 % 04/12/24 05:00 Nucleated RBCs # 0.0 /100WBC 04/12/24 05:00 PT 14.40 SECONDS (12.1-14.9) 04/10/24 17:47 INR 1.09 (0.8-1.2) 04/10/24 17:47 APTT 27.4 SECONDS (23.9-36.7) 04/10/24 17:47 Specimen Type Mixedvenous 04/09/24 11:25 Sample Site Radial, left 04/09/24 11:25 ABG pH 7.46 (7.35-7.45) H 04/09/24 11:25 ABG pCO2 22.1 mmHg (35-45) L 04/09/24 11:25 ABG pO2 46.5 mmHg (80.0-100.0) L 04/09/24 11:25 ABG PO2/FiO2 Ratio 221 04/09/24 11:25 ABG HCO3 15.7 mmol/L (22-26) L 04/09/24 11:25 ABG O2 Saturation 86.0 04/09/24 11:25 ABG Base Excess -6.0 mmol/L (-2.0-2.0) L 04/09/24 11:25 Orion Test Pos 04/09/24 11:25 A-a O2 Gradient 9.5 mmHg (5-10) 04/09/24 11:25 Hematocrit 42.0 % (42-52) 04/09/24 11:25 Hgb O2 Saturation 84.6 % (95-100) L 04/09/24 11:25 Carboxyhemoglobin 1.5 %THgb (0.4-20.1) 04/09/24 11:25 Methemoglobin 0.2 % (0.4-1.5) L 04/09/24 11:25 Total Hemoglobin 13.7 g/dL (14-18) L 04/09/24 11:25 Sodium 140.0 mmol/L (131-143) 04/09/24 11:25 Potassium 3.7 mmol/L (3.5-5.0) 04/09/24 11:25 Glucose 176.0 mg/dL (70-115) H 04/09/24 11:25 Ionized Calcium 1.2 mmol/L (1.1-1.4) 04/09/24 11:25 O2 Delivery Device Room air 04/09/24 11:25 FiO2 21.0 % 04/09/24 11:25 Quality Specialist ID Amh 04/09/24 11:25 Sodium 135 mmol/L (136-145) L 04/12/24 05:00 Potassium 3.5 mmol/L (3.5-5.1) 04/12/24 05:00 Chloride 102 mmol/L (98-107) 04/12/24 05:00 Carbon Dioxide 22 mmol/L (22-29) 04/12/24 05:00 Anion Gap 14.5 (5-19) 04/12/24 05:00 BUN 23 mg/dL (8-23) 04/12/24 05:00 Creatinine 0.6 mg/dL (0.7-1.2) L 04/12/24 05:00 GFR Calculation Not Reportable 04/12/24 05:00 Glucose 164 mg/dL (65-115) H 04/12/24 05:00 POC Glucose 168 mg/dL (70-110) H 04/12/24 11:18 Estimat Average Glucose 197 04/09/24 10:58 Hemoglobin A1c 8.5 % (4.0-6.0) H 04/09/24 10:58 Calculated Osmolality 287 mOsm/kg (285-295) 04/12/24 05:00 Lactic Acid 2.3 mmol/L (0.5-2.2) H 04/09/24 10:58 Lactic Acid (Sepsis) 1.2 mmol/L (0.5-2.2) 04/09/24 14:40 Calcium 7.7 mg/dL (8.5-10.5) L 04/12/24 05:00 Phosphorus 2.5 mg/dL (2.5-4.5) 04/11/24 05:01 Magnesium 2.3 mg/dL (1.7-2.3) 04/12/24 05:00 Total Bilirubin 1.9 mg/dL (0.15-1.2) H 04/11/24 05:01 AST 122 U/L (0-40) H 04/11/24 05:01 ALT 48 U/L (0-41) H 04/11/24 05:01 Alkaline Phosphatase 273 U/L (40-130) H 04/11/24 05:01 Troponin T Baseline 23 ng/L (0-15) H 04/09/24 10:58 Troponin T 120 Minute 23.50 ng/L (0-15) H 04/09/24 13:27 Delta Troponin T 0.50 ABS# (0-10) 04/09/24 13:27 Troponin T Hi Sens 6Hr 21.01 ng/L (0-15) H 04/09/24 16:58 Troponin T Hi Sens 6Hr Delta -1.99 ng/L (0-12) L 04/09/24 16:58 C-Reactive Protein 140.4 mg/L (0.0-4.9) H 04/10/24 02:59 NT-Pro-B Natriuret Pep 77068 pg/mL (0-450) H 04/09/24 16:58 Total Protein 6.7 g/dL (6.6-8.7) 04/11/24 05:01 Albumin 2.8 g/dL (3.5-5.2) L 04/11/24 05:01 Globulin 3.9 g/dL (1.3-4.6) 04/11/24 05:01 Procalcitonin 3.10 ng/mL (0-0.5) H 04/10/24 02:59 Urine Color Yellow (Yellow) 04/09/24 13:14 Urine Appearance Clear (CLEAR) 04/09/24 13:14 Urine pH 5.5 (5-7) 04/09/24 13:14 Ur Specific [place] 1.029 (1.005-1.030) 04/09/24 13:14 Urine Protein 1+ (Negative) A 04/09/24 13:14 Urine Glucose (UA) 3+ (Normal) H 04/09/24 13:14 Urine Ketones 2+ (Negative) H 04/09/24 13:14 Urine Blood 2+ (Negative) A 04/09/24 13:14 Urine Nitrate Negative (Negative) 04/09/24 13:14 Urine Bilirubin Negative (Negative) 04/09/24 13:14 Urine Urobilinogen 1.0 mg/dL (Negative) 04/09/24 13:14 Ur Leukocyte Esterase Negative (Negative) 04/09/24 13:14 Urine RBC 3-5 /hpf (0-2) 04/09/24 13:14 Urine WBC 0-5 /hpf (0-5) 04/09/24 13:14 Ur Squamous Epith Cells 0-5 /hpf (0-5) 04/09/24 13:14 Amorphous Sediment Not Reportable 04/09/24 13:14 Urine Bacteria None seen /hpf (NONE) 04/09/24 13:14 Hyaline Casts 0-4 /lpf H 04/09/24 13:14 Vancomycin Trough 16.9 ug/mL (10-15) H 04/12/24 09:47 Adenovirus (PCR) Not detected (NOT DETECT) 04/09/24 17:00 C. pneumoniae DNA (PCR) Not detected (NOT DETECT) 04/09/24 17:00 Coronavirus (PCR) Negative (Negative) 04/09/24 11:30 Coronavirus 229E (PCR) Not detected (NOT DETECT) 04/09/24 17:00 Human Metapneumovir PCR Not detected (NOT DETECT) 04/09/24 17:00 Influenza A (H1) PCR Not detected (NOT DETECT) 04/09/24 17:00 Influenza A (PCR) Negative (Negative) 04/09/24 11:30 Influ A (H1/09) PCR Not detected (NOT DETECT) 04/09/24 17:00 Influenza A (H3) PCR Not detected (NOT DETECT) 04/09/24 17:00 Influenza Type A (PCR) Not detected (NOT DETECT) 04/09/24 17:00 Influenza Type B (PCR) Not detected (NOT DETECT) 04/09/24 17:00 M. pneumoniae (PCR) Not detected (NOT DETECT) 04/09/24 17:00 Parainfluenza 1 (PCR) Not detected (NOT DETECT) 04/09/24 17:00 Parainfluenza 2 (PCR) Not detected (NOT DETECT) 04/09/24 17:00 Parainfluenza 3 (PCR) Not detected (NOT DETECT) 04/09/24 17:00 Parainfluenza 4 (PCR) Not detected (NOT DETECT) 04/09/24 17:00 RSV (PCR) Negative (Negative) 04/09/24 11:30 RSV Type A (PCR) Not detected (NOT DETECT) 04/09/24 17:00 RSV Type B (PCR) Not detected (NOT DETECT) 04/09/24 17:00 Entero/Rhino (PCR) Not detected (NOT DETECT) 04/09/24 17:00 SARS-CoV-2 (PCR) Not detected (NOT DETECT) 04/09/24 17:00 A&P Assessment and plan (1) Endocarditis: Patient meets modified [place] criteria for endocarditis with 1 major (blood culture positive with atypical organism that is strep bovis ) + 3 minor clinical criteria (predisposing heart condition by way of prosthetic heart valve, fever, possible vascular phenomena by way of arterial embolization/septic emboli as seen on MRI of the brain) Will discuss with radiology regarding findings on MRI. Per my personal interpretation given findings of left parietal cortex and left frontal cortex acute lacunar infarcts raises concern for septic embolization. However will discuss this finding with radiology for further clarity. Even if this does not turned out to be a septic embolization, patient would need at least 1 major and 2 minor clinical criteria for endocarditis making it at least a possible endocarditis. Patient has a history of strep bovis presumed aortic valve endocarditis in September 2019. Echo was negative for vegetations, At the time he was treated with ceftriaxone 1 g once a day for 4 weeks. It was recommended to undergo an outpatient colonoscopy, however I am uncertain if this ever happened. On the same admission in September 2019, patient had acute swelling of the right shoulder for which he underwent debridement and washout with orthopedics. At the time IntraOp findings were thought to be less likely to be septic arthritis or osteomyelitis. Findings are more consistent with a rotator cuff tear. There was no purulent fluid noted at the time of surgery. Cultures were negative. Transesophageal echocardiogram at that time had shown moderate aortic valve stenosis with mild to moderate aortic valve regurgitation. No evidence of valvular vegetation. He is s/p aortic valve replacement, now with a bioprosthetic valve in place since 08/2022. Per review of outpatient cardiology notes, she was treated for mitral valve endocarditis in 10/2022. Records requested from [facility]. Unknown organism and treatment course. There is h/o ESBL E.coli UTI and bacteremia in 08/2022 treated with 14 days of iv ertapenem. Now current admission with fever, AMS and Strep bovis bacteremia Called patient's to discuss nature of PCN allergy- is unaware of the same. She request we call her back tomorrow for an update as today is not a good time Reveiwed prior records from 2019- patient has tolerated ceftriaxone in the past Plan: D/c meropenem and vancomycin start Ceftriaxone 2 g iv every 24 h for possible endocarditis Will add Gentamicin 3mg/kg every 24 hrs given presence of prosthetic valve. Prefer to add this in a step natarajan fashion instead of today given reported h/o drug allergies. 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 no current obvious joint swelling , no h/o underlying hardware fusiform aortic aneursym - stable over previous - no graft material ? mycotic aneurysm. Will follow (2) History of aortic valve replacement: requested records from [facility] (3) Atrial fibrillation: Qualifiers: Atrial fibrillation type: other persistent Qualified Code(s): I48.19 - Other persistent atrial fibrillation (4) CVA (cerebral vascular accident): Consult Attestations 2 Medical Necessity Statement: per admitting Coding Level of Care Code Acute Code for Chg Fwd High MDM includes number and complexity of problems actively addressed during encounter, amount and/or complexity of data reviewed/ordered and described risk of complication, morbidity or mortality of management as documented Diagnoses Endocarditis I38 History of aortic valve replacement Z95.2 Other persistent atrial fibrillation I48.19 Atrial fibrillation type: other persistent CVA (cerebral vascular accident) I63.9
[2024-04-12] MEDS: insulin lispro 100 unit/1 mL SUBCUT ×2 (13:20→21:21)
--- NOTE | 2024-04-12 16:02 | PM.PN ---
Subjective Subjective: Patient seen at bedside this morning. No acute overnight events noted Medications: Reviewed: Yes Vitals/I&O/Wt Last Vital Signs Temp 98.2 F 04/12/24 14:00 Pulse 62 04/12/24 14:00 Resp 19 H 04/12/24 14:00 BP 129/74 04/12/24 14:00 Pulse Ox 92 04/12/24 14:00 O2 Del Method Room Air 04/12/24 14:00 O2 Flow Rate 2 04/11/24 20:09 04/12/24 04/12/24 04/12/24 06:59 14:59 22:59 Intake Total 450 / 2440 970 / 970 Output Total 600 / 2200 Balance -150 / 240 970 / 970 Weight last 48 hrs Weight 92.3 kg Weight 92.3 kg Physical Exam Narrative: General: Alert oriented x 3. Laying in bed. Able to have a conversation with me today. A lot more coherent compared to admission. HEENT: Normocephalic, atraumatic, EOMI, on nasal cannula 2 L. Cardio: Regular rate rhythm, normal S1-S2, no gross murmurs present. Respiratory: Clear to auscultation bilaterally no gross wheezes or rhonchi appreciated. GI: Abdomen soft, nontender, nondistended, bowel sounds + Extremities: No edema noted. Neuro: Very mild left eyelid droop noted, mild facial droop present., Cranial nerves II to XII intact, patient able to follow commands and moves all 4 extremities spontaneously, strength bilateral upper and lower extremities equal 4 out of 5. Overall appears to be deconditioned and weak. ? Urinary Catheter Management: Benson: Cath Placed During This Visit: yes Reason for Continuing Indwelling Catheter: Accurate Measurement of Urinary Output in Critically Ill Patients Urinary Catheter Date of Insertion: 04/09/24 Data 04/12/24 05:00 04/12/24 05:00 Micro: Microbiology 04/10/24 17:47 Blood Culture - Preliminary Blood NEGATIVE TO DATE 04/10/24 17:52 Blood Culture - Preliminary Blood NEGATIVE TO DATE 04/09/24 12:22 Blood Culture - Preliminary Blood Streptococcus species 04/09/24 13:14 Urine Culture - Final Urine Catheterized A&P Assessment and plan (1) Diabetes mellitus: Qualifiers: Diabetes mellitus type: type 2 Diabetes mellitus senior living insulin use: with senior living use Diabetes mellitus complication status: with hyperglycemia Qualified Code(s): E11.65 - Type 2 diabetes mellitus with hyperglycemia; 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 Qualifiers: Cardiac valve disease etiology: etiology unspecified Qualified Code(s): I35.0 - Nonrheumatic aortic (valve) stenosis (8) Peripheral neuropathy: (9) Atherosclerosis of coronary artery: (10) Status post cardiac revascularization with bypass aortocoronary anastomosis of five coronary vessels: October 2022. (11) History of aortic valve replacement: Plan #Sepsis secondary to unknown source?criteria met by fever, lactic acid 2.3, WBC count 25,000 #Fever, altered mental status #Leukocytosis #Alcohol abuse #Atrial fibrillation. #History of CABG and aortic valve replacement 2022. #Coronary artery disease, triple-vessel status post CABG #History of mitral valve endocarditis, history of ESBL UTI, history of bacteremia #Hypertension #Hyperlipidemia #GERD #Chronic anticoagulation with Eliquis - Admit to icu for closer monitoring ?Check blood cultures, urine culture, sputum culture Gram stain ? Continue Eliquis ? Hold home amlodipine, Lasix, metformin, sitagliptin, tamsulosin ? Continue sertraline, atorvastatin, aspirin ? Will check lumbar puncture and CSF analysis studies to isolate the source, will hold Eliquis. ? CT abdomen pelvis and chest reviewed no acute pathology noticed ? Will also check MRI brain to rule out a stroke however my suspicion is low at this time. ? With history of patient's endocarditis multiple occasions of bacteremia and ESBL UTI I do suspect that his blood cultures will most likely be positive. ? Will consider imaging of lumbar spine should blood cultures turn positive. ? Continue on Zyvox and meropenem. Zyvox chosen secondary to vancomycin shortage ? Placed on CIOR protocol. I will go ahead and give 2 mg of Ativan at this time. Patient may be withdrawing. His last drink was on Tuesday. Does drink alcohol every other day 9 beers a day as per . ? Continue thiamine folic acid ? Check CRP in a.m., CMP, magnesium, CBC ? Continue on normal saline 75 cc/h. Patient did get 2 L bolus in the ER. ? Will check echocardiogram. ? Chec troponins reviewed?flat. Delta 0.5. ? Check procalcitonin ? UA is positive for protein glucose ketones and blood. Check hemoglobin A1c ? Respiratory viral panel pending at this time ? COVID and influenza are negative?tested in the ER ? CT head negative in ER ?Discussed plan with at bedside, nursing staff. ? Speech therapy julián. Full Code On Eliquis 04/10/2024 -Lumbar puncture pending at this time. Patient did have Eliquis yesterday morning possibly and the day before and is on aspirin daily at home. Discussed with and she states she is not sure if she took his meds on Tuesday or not. However she would like for us to do the lumbar puncture after a 48-hour washout. Will plan that for tomorrow morning. Discussed with radiology as well. Continue to hold Eliquis at this time and aspirin. ? Discussed with regarding patient's eyelid droop this morning and results of CTA head and neck. He will need vascular surgery follow-up as an outpatient. ? Await final speciation of blood cultures. ? Repeat blood cultures today ? Continue on vancomycin and meropenem. Stop Zyvox. I have been told by pharmacy that vancomycin shortage no longer present. This will also cover for possible meningitis if there is any. I have a low suspicion at this time however secondary to fever and altered mental status on initial presentation we will go ahead and obtain spinal fluid and sent for analysis. ? Also been complaining of lower back pain. I will order MRI lumbar spine today to rule out epidural abscess. ? Blood cultures 2 out of 4 positive at this time. Sensitivity and speciation pending at this time. ? TTE negative for vegetation. Will discuss with cardiology regarding MARINA. ? Respiratory viral panel negative, COVID influenza negative. ? Continue on CIWA protocol. Continue thiamine folic acid ? Speech therapy evaluated the patient. Okay to proceed with dysphagia level 5 diet at this time. Once patient more awake and alert expect his dysphagia to resolved. ? Check MRI brain to rule out stroke. ? Placed on metoprolol 25 twice daily. Patient is on any rate controlling agents at home. ? Sliding scale insulin moderate dose intensity ? Lasix 40 IV x 1 ordered. Continue atorvastatin. Hold off on amlodipine at this time. ? Tylenol for fever. ? Discussed above plan with in detail. ? Sputum Gram stain culture pending, urine culture pending. ? Time was spent today discussing with neurology and radiology and physician who assessed patient for facial droop this morning, nursing staff, over the phone. 04/11/2024 -Lumbar puncture today. After procedure may be start aspirin and Eliquis. ? Results of CTA head and neck reviewed with family. He does have bilateral carotid artery stenosis and will need vascular surgery follow-up as an outpatient ? Blood cultures 2 out of 4 bottles positive for Streptococcus species. Final sensitivity pending. ? Continue vancomycin and meropenem to cover for possible meningitis and bacteremia. ? TTE negative for vegetation. Will discuss with cardiology regarding MARINA. Consult cardiology today. ? Speech therapy following patient. Patient is on regular thin liquids at this time. ? MRI brain did showed tiny acute lacunar infarcts in same territory. Embolic stroke not definitive. Discussed with radiology. Patient does have history of atrial fibrillation and prior to admission is unsure if he took his Eliquis for a day or 2 due to altered mental status. Did discuss with neurology. Patient is not a candidate for TNKase secondary to Eliquis use. ? Continue metoprolol 25 twice daily ? Patient did get Lasix 40 IV x 1. Patient is 1 L negative since admission ? Sputum Gram stain culture pending, urine culture pending ? Updated family over the phone. Order PT OT ? Increase atorvastatin to 80 mg daily. ? Going forward patient will be on aspirin and Eliquis. ? Patient does have risk factors for endocarditis. He has history of mitral valve endocarditis in the past and has a bioprosthetic aortic valve. He has had bacteremia before and ESBL UTIs. Will discuss with cardiology regarding MARINA. Consider ID consult. 04/12/24 refused lumbar puncture yesterday. ID consult appreciated. Antibiotics changed to IV ceftriaxone 2 g daily. Will follow-up ID for further recommendations Plan for MARINA in a.m. will keep him n.p.o. past midnight. Follow-up cardiology for further recommendations Continue to monitor, WBC count improving to 13.8, follow-up final blood cultures. Attestations Medical Necessity Statement*: Continue to hospitalize patient. For above issues. Patient will need full workup for bacteremia. 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 use Diabetes mellitus complication status: with hyperglycemia Essential hypertension I10 Hypertension type: essential hypertension Other persistent atrial fibrillation I48.19 Atrial fibrillation type: other persistent Abdominal aortic aneurysm (AAA) without rupture I71.4 Presence of rupture: without rupture Peripheral vascular disease I73.9 Chronic anticoagulation Z79.01 Aortic valve stenosis, etiology of cardiac valve disease unspecified I35.0 Cardiac valve disease etiology: etiology unspecified Peripheral neuropathy G62.9 Atherosclerosis of coronary artery I25.10 Status post cardiac revascularization with bypass aortocoronary anastomosis of five coronary vessels Z95.1 History of aortic valve replacement Z95.2 Time Spent (min) 25
[2024-04-12 16:46] LABS: Glucose Point of Care 110 mg/dL (70-110)
[2024-04-12 18:51] LABS: Blood Urea Nitrogen 22 mg/dL (8-23); Calcium 7.9 mg/dL (8.5-10.5); Carbon Dioxide 25 mmol/L (22-29); Chloride 97 mmol/L (98-107); Creatinine Clr Calc Pharmacy 91.3063; Glucose 198 mg/dL (65-115); Osmolality Calculated 281 mOsm/kg (285-295); Sodium 131 mmol/L (136-145)
[2024-04-12] MEDS: atorvastatin 40 mg Tablet 80 MG PO (19:01)
[2024-04-12 19:13] LABS: Anion Gap 12.6 (5-19); Potassium 3.6 mmol/L (3.5-5.1)
[2024-04-12] MEDS: cefTRIAXone 2,000 mg SDV 2000 MG IVP (21:07)
[2024-04-12 21:18] LABS: Glucose Point of Care 294 mg/dL (70-110)
--- NOTE | 2024-04-12 23:24 | PC.NURSE ---
Patient's diet order is for mildly thick liquids. Patient provided water with thickener per order. After drinking some of it, patient stated that it tasted nasty, he is not drinking it, and he wants real water.
[2024-04-13] VITALS (27 sets, daily range): BP systolic 96–160; BP diastolic 58–89; PULSE 61–96; RESP 17–24; TEMP 36.4–37.1; O2SAT 92–99
[2024-04-13 06:05] LABS: Basophils % 0.2 %; Eosinophils # 0.1 10^3/uL (0.0-0.8); Eosinophils % 0.8 %; Hematocrit 42.2 % (37-53); Lymphocytes # 1.2 10^3/uL (0.8-4.8); Lymphocytes % 11.1 %; Mean Corpuscular HGB Conc 33.2 g/dL (30-55); Mean Corpuscular Volume 96.3 fl (82-101); Mean Platelet Volume 10.2 fL (7.4-10.4); Monocytes # 0.7 10^3/uL (0.2-0.9); Monocytes % 6.2 %; Neutrophils # 8.92 10^3/uL (1.8-7.7); Neutrophils % 80.8 %; Nucleated Red Blood Cells % 0 %; Platelet Count 228 10^3/cmm (157-399); Red Blood Count 4.38 10^6/uL (3.85-5.65); Red Cell Distribution Width 13.8 % (12.1-15.1); White Blood Count 11.04 10^3/uL (3.29-11.43)
[2024-04-13 06:32] LABS: Anion Gap 10.5 (5-19); Blood Urea Nitrogen 18 mg/dL (8-23); Calcium 8.1 mg/dL (8.5-10.5); Carbon Dioxide 29 mmol/L (22-29); Chloride 97 mmol/L (98-107); Creatinine Clr Calc Pharmacy 90.2423; Glucose 160 mg/dL (65-115); Osmolality Calculated 281 mOsm/kg (285-295); Potassium 3.5 mmol/L (3.5-5.1); Sodium 133 mmol/L (136-145)
[2024-04-13 06:43] LABS: Glucose Point of Care 170 mg/dL (70-110)
[2024-04-13] MEDS: pantoprazole 40 mg SDV IVP (09:16)
[2024-04-13] MEDS: metoprolol tartrate 25 mg Tablet PO (09:17)
--- NOTE | 2024-04-13 10:30 | P.PN_ITS ---
<Statement entered by Gordon Johnson M.D - 04/13/24 13:54> Patient was evaluated and cared for in conjunction with an advanced practice practitioner.? I personally examined the patient and reviewed the chart and all pertinent data including imaging, telemetry, and laboratory results.? I discussed the patient in detail with the advanced practice practitioner.? Please see their note for complete progress note, testing results and agreed upon plan of care for the patient. Patient had transesophageal echocardiogram that did not reveal vegetation. GENERAL: Patient is alert HEART: Regular S1 and S2 LUNGS: Clear to auscultate bilaterally CENTRAL NERVOUS SYSTEM: Grossly nonfocal. EXTREMITIES: Lower extremities with out edema bilaterally. Assessment and Plan Possible endocarditis Sepsis Strep Bovis bacteremia Transesophageal echocardiogram did not reveal a vegetation. However he meets [facility] criteria for endocarditis. Will be appropriate to treat with antibiotics per ID recommendations. Thank you for involving us with care of this patient. Please call with questions Documented by User: Marii Timmons NP 04/13/24 10:33 Subjective 2 Subjective: I saw patient this morning with family present. He is doing well with no complaints. Explained the MARINA procedure. He is responding well to antibiotics. His white cell is down to normal no complaints this morning Medications: Reviewed: Yes Vitals/I&O/Wt Last Vital Signs Temp 97.9 F 04/13/24 07:25 Pulse 96 04/13/24 09:16 Resp 20 H 04/13/24 09:16 BP 160/80 04/13/24 07:25 Pulse Ox 92 04/13/24 09:16 O2 Del Method Room Air 04/13/24 09:16 O2 Flow Rate 2 04/11/24 20:09 04/12/24 04/13/24 04/13/24 22:59 06:59 14:59 Intake Total 480 / 1450 Output Total 1400 / 1400 900 / 2300 Balance -920 / 50 -900 / -850 Weight last 48 hrs Weight 198 lb 2 oz Weight 203 lb 7.787 oz Physical Exam 2 Narrative: General: No apparent distress, healthy appearing, well nourished Muskuloskeletal: Full ROM Respiratory: Normal respiratory effort, clear to auscultation bilaterally throughout all lung rhodes, no use of accessory muscles Cardio: No JVD, regular rate, regular rhythm, S1 S2 normal, no murmurs, peripheral pulses 2+ throughout GI: Normal to inspection, nondistended Extremities: Full ROM, normal, normal capillary refill, no cyanosis or edema Neuro: Alert and oriented x4, no focal motor deficits Psych: Affect normal, denies suicidal ideation, mental status grossly normal Skin: Sternotomy scar Urinary Catheter Management: Benson: Cath Placed During This Visit: yes Reason for Continuing Indwelling Catheter: Accurate Measurement of Urinary Output in Critically Ill Patients Urinary Catheter Date of Insertion: 04/09/24 Data 04/13/24 05:41 04/13/24 05:46 A&P Assessment and plan (1) Endocarditis: Qualifiers: Chronicity: unspecified Endocarditis type: other Qualified Code(s): I 38 - Endocarditis, valve unspecified (2) History of aortic valve replacement: (3) Status post cardiac revascularization with bypass aortocoronary anastomosis of five coronary vessels: (4) Atherosclerosis of coronary artery: Qualifiers: Associated angina: unspecified whether angina present Coronary Disease- Associated Artery/Lesion type: [place] artery [place] vs. transplanted heart: u nspecified whether [place] or transplanted heart Qualified Code(s): I25.10 - Atherosclerotic heart disease of [place] coronary artery without angina pectoris (5) Hypertension: Qualifiers: Hypertension type: essential hypertension Qualified Code(s): I10 - Essential (primary) hypertension Plan Patient's presentation is concerning for endocarditis with the positive blood culture with strep bovis, presence of prosthetic aortic valve, sepsis. We will assess for vegetations with transesophageal echocardiogram today. Transthoracic echo did not show significant vegetations. Attestations 2 Medical Necessity Statement*: Deferred to primary. Coding Level of Care Code Acute Code for [facility] Fwd Diagnoses Other endocarditis, unspecified chronicity I38 Chronicity: unspecified Endocarditis type: other History of aortic valve replacement Z95.2 Status post cardiac revascularization with bypass aortocoronary anastomosis of five coronary vessels Z95.1 Atherosclerosis of [place] coronary artery, unspecified whether angina present, unspecified whether [place] or transplanted heart I25.10 Associated angina: unspecified whether angina present Coronary Disease-Associated Artery/Lesion type: [place] artery [place] vs. transplanted heart: unspecified whether [place] or transplanted heart Essential hypertension I10 Hypertension type: essential hypertension Documented by User: Gordon Johnson M.D 04/13/24 13:41 Physical Exam 2 Urinary Catheter Management: Benson: Cath Placed During This Visit: yes Data 04/13/24 05:41 04/13/24 05:46 A&P Assessment and plan (1) Endocarditis: Qualifiers: Chronicity: unspecified Endocarditis type: other Qualified Code(s): I 38 - Endocarditis, valve unspecified (2) History of aortic valve replacement: (3) Status post cardiac revascularization with bypass aortocoronary anastomosis of five coronary vessels: (4) Atherosclerosis of coronary artery: Qualifiers: Associated angina: unspecified whether angina present Coronary Disease- Associated Artery/Lesion type: [place] artery [place] vs. transplanted heart: u nspecified whether [place] or transplanted heart Qualified Code(s): I25.10 - Atherosclerotic heart disease of [place] coronary artery without angina pectoris (5) Hypertension: Qualifiers: Hypertension type: essential hypertension Qualified Code(s): I10 - Essential (primary) hypertension Coding Level of Care Code Acute Code for g Fwd Diagnoses Other endocarditis, unspecified chronicity I38 Chronicity: unspecified Endocarditis type: other History of aortic valve replacement Z95.2 Status post cardiac revascularization with bypass aortocoronary anastomosis of five coronary vessels Z95.1 Atherosclerosis of [place] coronary artery, unspecified whether angina present, unspecified whether [place] or transplanted heart I25.10 Associated angina: unspecified whether angina present Coronary Disease-Associated Artery/Lesion type: [place] artery [place] vs. transplanted heart: unspecified whether [place] or transplanted heart Essential hypertension I10 Hypertension type: essential hypertension
--- NOTE | 2024-04-13 11:20 | P.ANESASSM_ITS ---
Pre-Anesthetic Assessment Height/Weight: Height 1.83 m Weight 89.868 kg Temp Pulse Resp BP Pulse Ox O2 Del Method O2 Flow Rate 98.7 F 67 19 H 112/69 94 Room Air 6 04/13/24 13:09 04/13/24 13:09 04/13/24 13:09 04/13/24 13:09 04/13/24 13:09 04/13/24 13:09 04/13/24 12:38 Preop Diagnosis: Possible endocarditis/Transesophageal echocardiogram Operation Date: 04/13/24 11:30 Proposed Procedures p MARINA(Not Applicable) - Abelardo Vargas anesthetic complications: none Was Beta Dylon taken within 24 hours: N/A Was Clonidine taken within 24 hours: N/A Last intake: > 8hrs Social No alcohol and No tobacco Exam alert, oriented x 3, clear to auscultation bilaterally and regular rate & rhythm CV/HEM Atrial Fibrillation GI Gastroesophageal Reflux Disease Neuropsych Cerebrovascular Accident Anesthetic Plan ASA status: 4 Anesthesia: MAC Risk of > 500 ml blood loss (7ml/kg in children): No Medications/Allergies Home Medications Medication Instructions Recorded Confirmed Last Taken Type allopurinol 100 mg tablet 100 mg PO DAILY 30 days #30 tabs 10/10/19 04/09/24 09/14/22 Rx cholecalciferol (vitamin D3) 50 50 mcg PO DAILY #30 tabs 10/10/19 04/09/24 04/08/24 Rx mcg (2,000 unit) tablet sennosides 8.6 mg tablet (senna) 17.2 mg (2 x 8.6 mg) PO BID 30 10/10/19 04/09/24 04/08/24 Rx days #120 tabs aspirin 81 mg tablet,delayed 81 mg PO QAM 04/20/21 04/09/24 04/08/24 History release (Adult Low Dose Aspirin) atorvastatin 80 mg tablet 40 mg PO QPM 04/20/21 04/09/24 04/08/24 History magnesium oxide 400 mg (241.3 mg 400 mg PO DAILY 04/20/21 04/09/24 04/08/24 History magnesium) tablet pantoprazole 40 mg tablet,delayed 40 mg PO DAILY 04/20/21 04/09/24 04/08/24 History release acetaminophen 500 mg tablet 1,000 mg PO Q6H PRN Pain 08/25/22 04/09/24 Unknown History multivitamin (One Daily 1 tab PO DAILY 08/25/22 04/09/24 04/08/24 History Multivitamin tablet) melatonin 3 mg tablet 3 - 6 mg PO BEDTIME 09/06/22 04/09/24 04/08/24 History metformin 500 mg tablet,extended 1,000 mg PO BID 09/06/22 04/09/24 04/08/24 History release 24hr (osmotic) sertraline 100 mg tablet 150 mg PO QAM depression 09/06/22 04/09/24 04/08/24 History apixaban 5 mg tablet (Eliquis) 5 mg PO BID #180 tabs 11/01/22 04/09/24 04/08/24 Rx furosemide 20 mg tablet 20 mg PO QPM 05/02/23 04/09/24 04/08/24 History amlodipine 10 mg tablet 10 mg PO DAILY 04/09/24 04/09/24 04/08/24 History ammonium lactate 12 % lotion 1 applic topical BID PRN Dry Skin 04/09/24 04/09/24 Unknown History apple cider vinegar 300 mg tablet 300 mg PO DAILY 04/09/24 04/09/24 04/08/24 History carboxymethylcellulose 1 1 drp ophthalmic (eye) QID PRN Dry 04/09/24 04/09/24 Unknown History %-glycerin 0.9 % eye gel drops Eyes clotrimazole 1 % topical cream 1 applic topical BID 04/09/24 04/09/24 Unknown History empagliflozin 25 mg tablet 25 mg PO DAILY 04/09/24 04/09/24 04/08/24 History fluoride (sodium) 1.1 % dental 1 applic dental DAILY 04/09/24 04/09/24 04/08/24 History paste (Sodium Fluoride 5000 Dry Mouth) meclizine 25 mg chewable tablet 25 mg PO TID PRN Vertigo 04/09/24 04/09/24 04/08/24 History omega 3-hpt-xbn-fish oil 1,000 mg 2 cap PO TID 04/09/24 04/09/24 04/08/24 History (120 mg-180 mg) capsule (Fish Oil) potassium chloride 20 mEq See Rx Instructions .Route .COMPLEX 04/09/24 04/09/24 Unknown History tablet,extended release prazosin 2 mg capsule 2 mg PO QPM 04/09/24 04/09/24 04/08/24 History sitagliptin 100 mg tablet 100 mg PO DAILY 04/09/24 04/09/24 04/08/24 History tamsulosin 0.4 mg capsule (Flomax) See Rx Instructions .Route .COMPLEX 04/09/24 04/09/24 04/08/24 History Allergies Allergy/AdvReac Type Severity Reaction Status Date / Time Penicillins Allergy Unknown Unknown Verified 12/29/23 12:21 niacin Allergy unknown Verified 12/29/23 12:21 Current Medications Generic Name Dose Route Start Last Admin Trade Name Freq PRN Reason Stop Dose Admin Apixaban 5 mg 04/09/24 18:00 04/12/24 19:01 Apixaban 5 Mg Tablet PO 5 mg BID DAVID Administration Aspirin 81 mg 04/10/24 06:00 04/12/24 05:46 Aspirin 81 Mg Ec Tablet PO 81 mg QAM DAVID Administration Atorvastatin Calcium 80 mg 04/11/24 18:00 04/12/24 19:01 Atorvastatin 40 Mg Tablet PO 80 mg QPM DAVID Administration Ceftriaxone Sodium 2,000 mg 04/12/24 21:15 04/12/24 21:07 Ceftriaxone 2,000 Mg Sdv IVP 2,000 mg Q24H DAVID Administration Protocol Folic Acid 1 mg 04/10/24 09:00 04/12/24 10:46 Folic Acid 1 Mg Tablet PO 1 mg DAILY DAVID Administration Sodium Chloride 1,000 mls @ 30 mls/hr 04/13/24 11:15 04/13/24 12:50 Sodium Chloride 0.9% IV 04/14/24 11:14 Infused .Q24H DAVID Infusion Insulin Human Lispro 0 unit 04/09/24 18:00 04/12/24 21:21 Insulin Lispro 100 Unit/1 Ml SUBCUT 10 unit WM&BEDTIME DAVID Administration Protocol Lorazepam 1 mg 04/09/24 20:46 04/09/24 20:58 Lorazepam 2 Mg/Ml Inj 1 Ml IVP 1 mg PRN PRN Administration WITHDRAWAL Protocol Magnesium Oxide 400 mg 04/10/24 09:00 04/12/24 10:46 Magnesium Oxide 400 Mg Tablet PO 400 mg DAILY DAVID Administration Metoprolol Tartrate 25 mg 04/10/24 13:00 04/13/24 09:17 Metoprolol Tartrate 25 Mg Tablet PO 25 mg BID@0900,2100 DAVID Administration Morphine Sulfate 2 mg 04/10/24 15:30 04/11/24 01:46 Morphine 4 Mg/Ml Sdv 1 Ml IVP 2 mg Q4H PRN Administration SEVERE PAIN Pantoprazole Sodium 40 mg 04/10/24 09:00 04/13/24 09:16 Pantoprazole 40 Mg Sdv IVP 40 mg DAILY DAVID Administration Senna 17.2 mg 04/09/24 18:00 04/12/24 19:01 Sennosides 8.6 Mg Tablet PO 17.2 mg BID DAVID Administration Sertraline HCl 150 mg 04/10/24 06:00 04/12/24 05:46 Sertraline 100 Mg Tablet PO 150 mg QAM DAVID Administration Thiamine HCl 100 mg 04/10/24 09:00 04/13/24 09:16 Thiamine 100 Mg/Ml Sdv IVP 100 mg DAILY DAVID Administration PFSH Anesthesia Medical History Atherosclerosis of coronary artery Peripheral neuropathy Footdrop Lumbar stenosis with neurogenic 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 Streptococcus bovis infection 4/4 bottles of blood cx (09/30) positive for Strep bovis in 09/2019, treated with half-way IV antibiotics Aortic stenosis Gout COPD (chronic obstructive pulmonary disease) Chronic anticoagulation Chronic alcohol dependence, continuous Chronic back pain Peripheral vascular disease Abdominal aortic aneurysm Hypertension Diabetes mellitus Atrial fibrillation Surgical History History of arthroscopy of right shoulder diagnostic at time of bacteremia 09/2019 History of aortic valve replacement bioprosthetic Status post cardiac revascularization with bypass aortocoronary anastomosis of five coronary vessels History of herniorrhaphy History of orthopedic surgery Right shoulder Hx of cholecystectomy Family History Father CAD (coronary artery disease) Social History Smoking and tobacco/nicotine status: former use of tobacco/nicotine Alcohol intake: current Alcohol intake frequency: few times a week Substance/Drug Use: never Household members: spouse Marital status: Current occupational status: retired Data Anesthesia 04/13/24 05:41 04/13/24 05:46 Short CBC 04/12/24 04/13/24 Range/Units 05:00 05:41 WBC 13.89 H 11.04 (3.29-11.43) 10^3/uL Hgb 12.70 14.00 (11.27-16.99) g/dL Hct 40.2 42.2 (37-53) % MCV 99.0 96.3 (82-101) fl Plt Count 214 228 (157-399) 10^3/cmm Neut % (Auto) 81.9 80.8 % Neut # (Auto) 11.37 H 8.92 H (1.8-7.7) 10^3/uL BMP 04/12/24 04/12/24 04/13/24 05:00 18:21 05:46 Sodium 135 L 131 L 133 L Potassium 3.5 3.6 3.5 Chloride 102 97 L 97 L Carbon Dioxide 22 25 29 BUN 23 22 18 Creatinine 0.6 L 0.7 0.7 Glucose 164 H 198 H 160 H Calcium 7.7 L 7.9 L 8.1 L Cardiac Studies: 2 Echocardiogram 04/09/24 Echocardiogram Limited Views 09/06/22 Echocardiogram Ultrasound 07/11/19 Transesophageal Echocardiogram 10/07/19 Cardiac Event Monitor 09/14/22
[2024-04-13] MEDS: sodium chloride 0.9% 1,000 ML 30 ML IV (11:26)
--- NOTE | 2024-04-13 11:30 | USCV_ITS ---
Azam Mccabe Age: 78 Gender: M : 1945 Exam Date: 04/13/2024 11:46 Ordering Phys: Gordon Johnson M.D ([email or web address]) Technologist: Exam Location: [facility] – [place] Indication: veg BP: / HR: Rhythm: Sinus Technical Quality: Adequate MEASUREMENTS (Male / Female) Normal Values Medications Complications None Proc. Components After anesthesia team sedated patient, we proceeded with advancing MARINA probe FINDINGS Left Ventricle Left ventricle is normal in size. LV systolic function is normal with EF of 55 to 60%. Right Ventricle Grossly normal Right Atrium Grossly normal Left Atrium Appears to be dilated LA Appendage Not well visualized IA Septum No interatrial shunting seen Mitral Valve Structurally normal valve. No vegetation seen. Mild mitral regurgitation. Aortic Valve Bioprosthetic aortic valve. No vegetation seen. Tricuspid Valve Grossly normal. Pulmonic Valve Grossly normal Pericardium Normal Aorta Mild atherosclerotic plaque CONCLUSIONS LV systolic function is normal with EF of 55 to 60%. Left atrium appears to be dilated No vegetation seen. Gordon Johnson MD (Electronically Signed) Final Date: 14 April 2024 13:47 S
--- NOTE | 2024-04-13 11:31 | W.PM.OPSUD ---
Surgery/Procedure H&P Update DATE OF PROCEDURE: April 13, 2024 DATE H&P PERFORMED: 04/12/24 H&P UPDATE INFORMATION: I have reviewed H&P completed within last 30 days, I have examined patient prior to procedure and No changes to prior documentation PREOP DIAGNOSIS: Possible endocarditis/Transesophageal echocardiogram PRIMARY INDICATION FOR PROCEDURE: Possible endocarditis/Transesophageal echocardiogram PLANNED PROCEDURE: Operation Date: 04/13/24 11:30 Proposed Procedures p MARINA(Not Applicable) - Gordon Johnson M.D Anesthesia team available for sedation
--- NOTE | 2024-04-13 12:24 | PC.SLP ---
Patient was NPO for a procedure this am when speech therapy attempted visit.
--- NOTE | 2024-04-13 12:41 | P.PN_ITS ---
Subjective 2 Subjective: Infectious disease progress note No acute interim events Patient underwent MARINA today which did not show any gross vegetations Medications: Reviewed: Yes Vitals/I&O/Wt Last Vital Signs Temp 98.4 F 04/13/24 12:00 Pulse 69 04/13/24 12:40 Resp 22 H 04/13/24 12:40 BP 131/86 04/13/24 12:40 Pulse Ox 96 04/13/24 12:40 O2 Del Method Room Air 04/13/24 12:40 O2 Flow Rate 6 04/13/24 12:38 04/12/24 04/13/24 04/13/24 22:59 06:59 14:59 Intake Total 480 / 1450 Output Total 1400 / 1400 900 / 2300 820 / 820 Balance -920 / 50 -900 / -850 -820 / -820 Weight last 48 hrs Weight 89.868 kg Weight 92.3 kg Physical Exam 2 Narrative: General: No acute distress, AO x2 HEENT: PERRLA, pupils bilaterally equal and reactive, pallors not present Chest: Normal vesicular breath sounds, no added sounds, equal good air entry bilaterally CVS: S1-S2 regular, no murmurs, no tachycardia, no gallops, no rubs Abdomen: Soft, nontender, no organomegaly, bowel sounds present Urinary Catheter Management: Benson: Cath Placed During This Visit: yes Reason for Continuing Indwelling Catheter: Accurate Measurement of Urinary Output in Critically Ill Patients Urinary Catheter Date of Insertion: 04/09/24 Data 04/13/24 05:41 04/13/24 05:46 A&P Assessment and plan (1) Endocarditis: Patient meets modified [place] criteria for possible endocarditis with 1 major (blood culture positive with atypical organism that is strep bovis ) + at least 2 minor clinical criteria (predisposing heart condition by way of prosthetic heart valve, fever) MRI findings discussed with radiologist- acute infarct findings in the left parietal cortex and left frontal cortex less likely septic embolization. 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 Echo was negative for vegetations. He is s/p aortic valve replacement, now with a bioprosthetic valve in place since 08/2022. Per review of outpatient cardiology notes, she was treated for mitral valve endocarditis in 10/2022. Records requested from [facility]. Unknown organism and treatment course at this time. 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 no current obvious joint swelling , no h/o underlying hardware fusiform aortic aneursym - stable over previous - no graft material ? mycotic aneurysm. Will follow Qualifiers: Endocarditis type: other Chronicity: unspecified Qualified Code(s): I 38 - Endocarditis, valve unspecified (2) History of aortic valve replacement: requested records from [facility] (3) Atrial fibrillation: Qualifiers: Atrial fibrillation type: other persistent Qualified Code(s): I48.19 - Other persistent atrial fibrillation (4) CVA (cerebral vascular accident): Attestations 2 Medical Necessity Statement*: per admitting Coding Level of Care Code Acute Code for Chg Fwd Diagnoses Other endocarditis, unspecified chronicity I38 Endocarditis type: other Chronicity: unspecified History of aortic valve replacement Z95.2 Other persistent atrial fibrillation I48.19 Atrial fibrillation type: other persistent CVA (cerebral vascular accident) I63.9
--- NOTE | 2024-04-13 12:50 | ANE.PACU2 ---
Inpatient post-anesthesia follow up: Airway intact: Yes Vital signs: Temperature 98.7 F Pulse Rate 67 Respiratory Rate 19 Blood Pressure 112/69 Pulse Oximetry 94 Oxygen Delivery Me thod Room Air Oxygen Flow Rate 6 Fraction of Inspir ed Oxygen Hydration adequate: Yes Nausea and vomiting: No Pain level: 1 Mental status: Baseline
--- NOTE | 2024-04-13 13:08 | PC.SOCIAL ---
IMM Updated Updated pt's via phone, on IMM. No questions voiced. Provided pt a copy. Initialed, dated, & timed copy in chart.
--- NOTE | 2024-04-13 13:18 | PC.SOCIAL ---
IMM Updated Updated pt on IMM. No questions voiced. Provided pt a copy. Initialed, dated, & timed copy in chart.
--- NOTE | 2024-04-13 14:16 | PM.PN ---
Subjective Subjective: Seen him at bedside this morning. No acute overnight events noted. Family including daughter at bedside. Denies any active complaints at this time Medications: Reviewed: Yes Vitals/I&O/Wt Last Vital Signs Temp 98.7 F 04/13/24 13:09 Pulse 67 04/13/24 13:09 Resp 19 H 04/13/24 13:09 BP 112/69 04/13/24 13:09 Pulse Ox 94 04/13/24 13:09 O2 Del Method Room Air 04/13/24 13:09 O2 Flow Rate 6 04/13/24 12:38 04/12/24 04/13/24 04/13/24 22:59 06:59 14:59 Intake Total 480 / 1450 350 / 350 Output Total 1400 / 1400 900 / 2300 820 / 820 Balance -920 / 50 -900 / -850 -470 / -470 Weight last 48 hrs Weight 89.868 kg Weight 92.3 kg Physical Exam Narrative: General: Alert oriented x 3. Laying in bed. Able to have a conversation with me today. A lot more coherent compared to admission. HEENT: Normocephalic, atraumatic, EOMI, on nasal cannula 2 L. Cardio: Regular rate rhythm, normal S1-S2, no gross murmurs present. Respiratory: Clear to auscultation bilaterally no gross wheezes or rhonchi appreciated. GI: Abdomen soft, nontender, nondistended, bowel sounds + Extremities: No edema noted. Neuro: Very mild left eyelid droop noted, mild facial droop present., Cranial nerves II to XII intact, patient able to follow commands and moves all 4 extremities spontaneously, strength bilateral upper and lower extremities equal 4 out of 5. Overall appears to be deconditioned and weak. ? Urinary Catheter Management: Benson: Cath Placed During This Visit: yes Reason for Continuing Indwelling Catheter: Accurate Measurement of Urinary Output in Critically Ill Patients Urinary Catheter Date of Insertion: 04/09/24 Data 04/13/24 05:41 04/13/24 05:46 A&P Assessment and plan (1) Diabetes mellitus: Qualifiers: Diabetes mellitus type: type 2 Diabetes mellitus terminal supervisor insulin use: with terminal supervisor use Diabetes mellitus complication status: with hyperglycemia Qualified Code(s): E11.65 - Type 2 diabetes mellitus with hyperglycemia; Z79.4 - [facility] (current) use of 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 Qualifiers: Cardiac valve disease etiology: etiology unspecified Qualified Code(s): I35.0 - Nonrheumatic aortic (valve) stenosis (8) Peripheral neuropathy: (9) Atherosclerosis of coronary artery: Qualifiers: Coronary Disease-Associated Artery/Lesion type: [place] artery [place] vs. transplanted heart: unspecified whether [place] or transplanted heart Associated angina: unspecified whether angina present Qualified Code(s): I25.10 - Atherosclerotic heart disease of [place] coronary artery without angina pectoris (10) Status post cardiac revascularization with bypass aortocoronary anastomosis of five coronary vessels: October 2022. (11) History of aortic valve replacement: Plan #Sepsis secondary to unknown source?criteria met by fever, lactic acid 2.3, WBC count 25,000 #Fever, altered mental status #Leukocytosis #Alcohol abuse #Atrial fibrillation. #History of CABG and aortic valve replacement 2022. #Coronary artery disease, triple-vessel status post CABG #History of mitral valve endocarditis, history of ESBL UTI, history of bacteremia #Hypertension #Hyperlipidemia #GERD #Chronic anticoagulation with Eliquis - Admit to icu for closer monitoring ?Check blood cultures, urine culture, sputum culture Gram stain ? Continue Eliquis ? Hold home amlodipine, Lasix, metformin, sitagliptin, tamsulosin ? Continue sertraline, atorvastatin, aspirin ? Will check lumbar puncture and CSF analysis studies to isolate the source, will hold Eliquis. ? CT abdomen pelvis and chest reviewed no acute pathology noticed ? Will also check MRI brain to rule out a stroke however my suspicion is low at this time. ? With history of patient's endocarditis multiple occasions of bacteremia and ESBL UTI I do suspect that his blood cultures will most likely be positive. ? Will consider imaging of lumbar spine should blood cultures turn positive. ? Continue on Zyvox and meropenem. Zyvox chosen secondary to vancomycin shortage ? Placed on CIWA protocol. I will go ahead and give 2 mg of Ativan at this time. Patient may be withdrawing. His last drink was on Tuesday. Does drink alcohol every other day 9 beers a day as per . ? Continue thiamine folic acid ? Check CRP in a.m., CMP, magnesium, CBC ? Continue on normal saline 75 cc/h. Patient did get 2 L bolus in the ER. ? Will check echocardiogram. ? Chec troponins reviewed?flat. Delta 0.5. ? Check procalcitonin ? UA is positive for protein glucose ketones and blood. Check hemoglobin A1c ? Respiratory viral panel pending at this time ? COVID and influenza are negative?tested in the ER ? CT head negative in ER ?Discussed plan with at bedside, nursing staff. ? Speech therapy eval. Full Code On Eliquis 04/10/2024 -Lumbar puncture pending at this time. Patient did have Eliquis yesterday morning possibly and the day before and is on aspirin daily at home. Discussed with and she states she is not sure if she took his meds on Tuesday or not. However she would like for us to do the lumbar puncture after a 48-hour washout. Will plan that for tomorrow morning. Discussed with radiology as well. Continue to hold Eliquis at this time and aspirin. ? Discussed with regarding patient's eyelid droop this morning and results of CTA head and neck. He will need vascular surgery follow-up as an outpatient. ? Await final speciation of blood cultures. ? Repeat blood cultures today ? Continue on vancomycin and meropenem. Stop Zyvox. I have been told by pharmacy that vancomycin shortage no longer present. This will also cover for possible meningitis if there is any. I have a low suspicion at this time however secondary to fever and altered mental status on initial presentation we will go ahead and obtain spinal fluid and sent for analysis. ? Also been complaining of lower back pain. I will order MRI lumbar spine today to rule out epidural abscess. ? Blood cultures 2 out of 4 positive at this time. Sensitivity and speciation pending at this time. ? TTE negative for vegetation. Will discuss with cardiology regarding MARINA. ? Respiratory viral panel negative, COVID influenza negative. ? Continue on CIWA protocol. Continue thiamine folic acid ? Speech therapy evaluated the patient. Okay to proceed with dysphagia level 5 diet at this time. Once patient more awake and alert expect his dysphagia to resolved. ? Check MRI brain to rule out stroke. ? Placed on metoprolol 25 twice daily. Patient is on any rate controlling agents at home. ? Sliding scale insulin moderate dose intensity ? Lasix 40 IV x 1 ordered. Continue atorvastatin. Hold off on amlodipine at this time. ? Tylenol for fever. ? Discussed above plan with in detail. ? Sputum Gram stain culture pending, urine culture pending. ? Time was spent today discussing with neurology and radiology and physician who assessed patient for facial droop this morning, nursing staff, over the phone. 04/11/2024 -Lumbar puncture today. After procedure may be start aspirin and Eliquis. ? Results of CTA head and neck reviewed with family. He does have bilateral carotid artery stenosis and will need vascular surgery follow-up as an outpatient ? Blood cultures 2 out of 4 bottles positive for Streptococcus species. Final sensitivity pending. ? Continue vancomycin and meropenem to cover for possible meningitis and bacteremia. ? TTE negative for vegetation. Will discuss with cardiology regarding MARINA. Consult cardiology today. ? Speech therapy following patient. Patient is on regular thin liquids at this time. ? MRI brain did showed tiny acute lacunar infarcts in same territory. Embolic stroke not definitive. Discussed with radiology. Patient does have history of atrial fibrillation and prior to admission is unsure if he took his Eliquis for a day or 2 due to altered mental status. Did discuss with neurology. Patient is not a candidate for TNKase secondary to Eliquis use. ? Continue metoprolol 25 twice daily ? Patient did get Lasix 40 IV x 1. Patient is 1 L negative since admission ? Sputum Gram stain culture pending, urine culture pending ? Updated family over the phone. Order PT OT ? Increase atorvastatin to 80 mg daily. ? Going forward patient will be on aspirin and Eliquis. ? Patient does have risk factors for endocarditis. He has history of mitral valve endocarditis in the past and has a bioprosthetic aortic valve. He has had bacteremia before and ESBL UTIs. Will discuss with cardiology regarding MARINA. Consider ID consult. 04/12/24 refused lumbar puncture yesterday. ID consult appreciated. Antibiotics changed to IV ceftriaxone 2 g daily. Will follow-up ID for further recommendations Plan for MARINA in a.m. will keep him n.p.o. past midnight. Follow-up cardiology for further recommendations Continue to monitor, WBC count improving to 13.8, follow-up final blood cultures. 04/13/24 Continue IV ceftriaxone 2 g daily as per ID recommendations Will follow-up MARINA Leukocytosis resolved with WBC count of 11.0 Blood cultures from 04/09 positive but blood cultures since 04/10 negative. Follow-up case management for discharge planning Attestations Medical Necessity Statement*: Continue to hospitalize patient. For above issues. Patient will need full workup for bacteremia. Time Spent in Patient Care: 15 minutes Coding Level of Care Code Acute Code for Chg Fwd Diagnoses Type 2 diabetes mellitus with hyperglycemia, with long-term current use of insulin E11.65; Z79.4 Diabetes mellitus type: type 2 Diabetes mellitus halfway insulin use: with terminal supervisor use Diabetes mellitus complication status: with hyperglycemia Essential hypertension I10 Hypertension type: essential hypertension Other persistent atrial fibrillation I48.19 Atrial fibrillation type: other persistent Abdominal aortic aneurysm (AAA) without rupture I71.4 Presence of rupture: without rupture Peripheral vascular disease I73.9 Chronic anticoagulation Z79.01 Aortic valve stenosis, etiology of cardiac valve disease unspecified I35.0 Cardiac valve disease etiology: etiology unspecified Peripheral neuropathy G62.9 Atherosclerosis of [place] coronary artery, unspecified whether angina present, unspecified whether [place] or transplanted heart I25.10 Coronary Disease-Associated Artery/Lesion type: [place] artery [place] vs. transplanted heart: unspecified whether [place] or transplanted heart Associated angina: unspecified whether angina present Status post cardiac revascularization with bypass aortocoronary anastomosis of five coronary vessels Z95.1 History of aortic valve replacement Z95.2 Time Spent (min) 15
[2024-04-13] MEDS: SODIUM CHLORIDE 0.9% IV (14:24)
[2024-04-13] MEDS: magnesium oxide 400 mg tablet PO (14:24)
[2024-04-13] MEDS: GENTAMICIN IV (14:24)
[2024-04-13] MEDS: sennosides 8.6 mg Tablet 17.2 MG PO ×2 (14:24→17:33)
[2024-04-13] MEDS: sertraline 100 mg Tablet 150 MG PO (14:25)
[2024-04-13] MEDS: folic acid 1 mg Tablet PO (14:25)
[2024-04-13] MEDS: aspirin 81 mg EC Tablet PO (14:25)
--- NOTE | 2024-04-13 15:39 | PC.OT ---
Attempted OT treatment session with pt declining due to having procedure; will attempt again at later time.
[2024-04-13 16:41] LABS: Glucose Point of Care 159 mg/dL (70-110)
[2024-04-13] MEDS: insulin lispro 100 unit/1 mL SUBCUT ×2 (17:33→21:03)
[2024-04-13] MEDS: apixaban 5 mg Tablet PO (17:33)
[2024-04-13] MEDS: atorvastatin 40 mg Tablet 80 MG PO (17:33)
[2024-04-13] MEDS: cefTRIAXone 2,000 mg SDV 2000 MG IVP (20:18)
[2024-04-13 21:01] LABS: Glucose Point of Care 152 mg/dL (70-110)
[2024-04-14 04:00] VITALS: BP 145/86; PULSE 81; RESP 19; TEMP 36.8; O2SAT 92
[2024-04-14] MEDS: sertraline 100 mg Tablet 150 MG PO (05:17)
[2024-04-14] MEDS: aspirin 81 mg EC Tablet PO (05:17)
[2024-04-14 06:34] LABS: Glucose Point of Care 163 mg/dL (70-110)
[2024-04-14] MEDS: insulin lispro 100 unit/1 mL SUBCUT ×3 (07:50→17:11)
[2024-04-14] MEDS: pantoprazole 40 mg SDV IVP (07:50)
[2024-04-14] MEDS: sennosides 8.6 mg Tablet 17.2 MG PO ×2 (07:51→17:11)
[2024-04-14] MEDS: magnesium oxide 400 mg tablet PO (07:51)
[2024-04-14] MEDS: metoprolol tartrate 25 mg Tablet PO (07:52)
[2024-04-14] MEDS: folic acid 1 mg Tablet PO (07:52)
[2024-04-14] MEDS: apixaban 5 mg Tablet PO ×2 (07:52→17:11)
[2024-04-14 08:00] VITALS: BP 126/72; PULSE 93; RESP 16; TEMP 36.6; O2SAT 95
[2024-04-14 08:37] VITALS: PULSE 90; RESP 16; O2SAT 93
[2024-04-14 11:35] LABS: Glucose Point of Care 148 mg/dL (70-110)
[2024-04-14 12:00] VITALS: BP 147/103; PULSE 85; RESP 16; TEMP 36.7; O2SAT 97
--- NOTE | 2024-04-14 13:27 | PM.PN ---
Subjective Subjective: No acute overnight events noted. Medications: Reviewed: Yes Vitals/I&O/Wt Last Vital Signs Temp 98.0 F 04/14/24 12:00 Pulse 85 04/14/24 12:00 Resp 16 04/14/24 12:00 BP 147/103 04/14/24 12:00 Pulse Ox 97 04/14/24 12:00 O2 Del Method Room Air 04/14/24 12:00 O2 Flow Rate 6 04/13/24 12:38 04/13/24 04/14/24 04/14/24 22:59 06:59 14:59 Intake Total 806.75 / 1156.75 120 / 120 Output Total 900 / 1720 1550 / 3270 Balance -93.25 / -563.25 -1550 / -2113.25 120 / 120 Weight last 48 hrs Weight 89.103 kg Weight 89.868 kg Physical Exam Narrative: General: Alert oriented x 3. Laying in bed. Able to have a conversation with me today. A lot more coherent compared to admission. HEENT: Normocephalic, atraumatic, EOMI, on nasal cannula 2 L. Cardio: Regular rate rhythm, normal S1-S2, no gross murmurs present. Respiratory: Clear to auscultation bilaterally no gross wheezes or rhonchi appreciated. GI: Abdomen soft, nontender, nondistended, bowel sounds + Extremities: No edema noted. Neuro: Very mild left eyelid droop noted, mild facial droop present., Cranial nerves II to XII intact, patient able to follow commands and moves all 4 extremities spontaneously, strength bilateral upper and lower extremities equal 4 out of 5. Overall appears to be deconditioned and weak. ? Urinary Catheter Management: Benson: Cath Placed During This Visit: yes Reason for Continuing Indwelling Catheter: Acute Urinary Retention or Obstruction Urinary Catheter Date of Insertion: 04/09/24 Data 04/13/24 05:41 04/13/24 05:46 Micro: Microbiology 04/09/24 11:38 Blood Culture - Final Blood Streptococcus bovis i 04/09/24 12:22 Blood Culture - Final Blood Streptococcus bovis i A&P Assessment and plan (1) Diabetes mellitus: Qualifiers: Diabetes mellitus type: type 2 Diabetes mellitus group home insulin use: with group home use Diabetes mellitus complication status: with hyperglycemia Qualified Code(s): E11.65 - Type 2 diabetes mellitus with hyperglycemia; Z79.4 - [facility] (current) use of 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 Qualifiers: Cardiac valve disease etiology: etiology unspecified Qualified Code(s): I35.0 - Nonrheumatic aortic (valve) stenosis (8) Peripheral neuropathy: (9) Atherosclerosis of coronary artery: Qualifiers: Coronary Disease-Associated Artery/Lesion type: [place] artery [place] vs. transplanted heart: unspecified whether [place] or transplanted heart Associated angina: unspecified whether angina present Qualified Code(s): I25.10 - Atherosclerotic heart disease of [place] coronary artery without angina pectoris (10) Status post cardiac revascularization with bypass aortocoronary anastomosis of five coronary vessels: October 2022. (11) History of aortic valve replacement: Plan #Sepsis secondary to unknown source?criteria met by fever, lactic acid 2.3, WBC count 25,000 #Fever, altered mental status #Leukocytosis #Alcohol abuse #Atrial fibrillation. #History of CABG and aortic valve replacement 2022. #Coronary artery disease, triple-vessel status post CABG #History of mitral valve endocarditis, history of ESBL UTI, history of bacteremia #Hypertension #Hyperlipidemia #GERD #Chronic anticoagulation with Eliquis - Admit to icu for closer monitoring ?Check blood cultures, urine culture, sputum culture Gram stain ? Continue Eliquis ? Hold home amlodipine, Lasix, metformin, sitagliptin, tamsulosin ? Continue sertraline, atorvastatin, aspirin ? Will check lumbar puncture and CSF analysis studies to isolate the source, will hold Eliquis. ? CT abdomen pelvis and chest reviewed no acute pathology noticed ? Will also check MRI brain to rule out a stroke however my suspicion is low at this time. ? With history of patient's endocarditis multiple occasions of bacteremia and ESBL UTI I do suspect that his blood cultures will most likely be positive. ? Will consider imaging of lumbar spine should blood cultures turn positive. ? Continue on Zyvox and meropenem. Zyvox chosen secondary to vancomycin shortage ? Placed on CIWA protocol. I will go ahead and give 2 mg of Ativan at this time. Patient may be withdrawing. His last drink was on Tuesday. Does drink alcohol every other day 9 beers a day as per . ? Continue thiamine folic acid ? Check CRP in a.m., CMP, magnesium, CBC ? Continue on normal saline 75 cc/h. Patient did get 2 L bolus in the ER. ? Will check echocardiogram. ? Chec troponins reviewed?flat. Delta 0.5. ? Check procalcitonin ? UA is positive for protein glucose ketones and blood. Check hemoglobin A1c ? Respiratory viral panel pending at this time ? COVID and influenza are negative?tested in the ER ? CT head negative in ER ?Discussed plan with at bedside, nursing staff. ? Speech therapy eval. Full Code On Eliquis 04/10/2024 -Lumbar puncture pending at this time. Patient did have Eliquis yesterday morning possibly and the day before and is on aspirin daily at home. Discussed with and she states she is not sure if she took his meds on Tuesday or not. However she would like for us to do the lumbar puncture after a 48-hour washout. Will plan that for tomorrow morning. Discussed with radiology as well. Continue to hold Eliquis at this time and aspirin. ? Discussed with regarding patient's eyelid droop this morning and results of CTA head and neck. He will need vascular surgery follow-up as an outpatient. ? Await final speciation of blood cultures. ? Repeat blood cultures today ? Continue on vancomycin and meropenem. Stop Zyvox. I have been told by pharmacy that vancomycin shortage no longer present. This will also cover for possible meningitis if there is any. I have a low suspicion at this time however secondary to fever and altered mental status on initial presentation we will go ahead and obtain spinal fluid and sent for analysis. ? Also been complaining of lower back pain. I will order MRI lumbar spine today to rule out epidural abscess. ? Blood cultures 2 out of 4 positive at this time. Sensitivity and speciation pending at this time. ? TTE negative for vegetation. Will discuss with cardiology regarding MARINA. ? Respiratory viral panel negative, COVID influenza negative. ? Continue on CIWA protocol. Continue thiamine folic acid ? Speech therapy evaluated the patient. Okay to proceed with dysphagia level 5 diet at this time. Once patient more awake and alert expect his dysphagia to resolved. ? Check MRI brain to rule out stroke. ? Placed on metoprolol 25 twice daily. Patient is on any rate controlling agents at home. ? Sliding scale insulin moderate dose intensity ? Lasix 40 IV x 1 ordered. Continue atorvastatin. Hold off on amlodipine at this time. ? Tylenol for fever. ? Discussed above plan with in detail. ? Sputum Gram stain culture pending, urine culture pending. ? Time was spent today discussing with neurology and radiology and physician who assessed patient for facial droop this morning, nursing staff, over the phone. 04/11/2024 -Lumbar puncture today. After procedure may be start aspirin and Eliquis. ? Results of CTA head and neck reviewed with family. He does have bilateral carotid artery stenosis and will need vascular surgery follow-up as an outpatient ? Blood cultures 2 out of 4 bottles positive for Streptococcus species. Final sensitivity pending. ? Continue vancomycin and meropenem to cover for possible meningitis and bacteremia. ? TTE negative for vegetation. Will discuss with cardiology regarding MARINA. Consult cardiology today. ? Speech therapy following patient. Patient is on regular thin liquids at this time. ? MRI brain did showed tiny acute lacunar infarcts in same territory. Embolic stroke not definitive. Discussed with radiology. Patient does have history of atrial fibrillation and prior to admission is unsure if he took his Eliquis for a day or 2 due to altered mental status. Did discuss with neurology. Patient is not a candidate for TNKase secondary to Eliquis use. ? Continue metoprolol 25 twice daily ? Patient did get Lasix 40 IV x 1. Patient is 1 L negative since admission ? Sputum Gram stain culture pending, urine culture pending ? Updated family over the phone. Order PT OT ? Increase atorvastatin to 80 mg daily. ? Going forward patient will be on aspirin and Eliquis. ? Patient does have risk factors for endocarditis. He has history of mitral valve endocarditis in the past and has a bioprosthetic aortic valve. He has had bacteremia before and ESBL UTIs. Will discuss with cardiology regarding MARINA. Consider ID consult. 04/12/24 refused lumbar puncture yesterday. ID consult appreciated. Antibiotics changed to IV ceftriaxone 2 g daily. Will follow-up ID for further recommendations Plan for MARINA in a.m. will keep him n.p.o. past midnight. Follow-up cardiology for further recommendations Continue to monitor, WBC count improving to 13.8, follow-up final blood cultures. 04/13/24 Continue IV ceftriaxone 2 g daily as per ID recommendations Will follow-up MARINA Leukocytosis resolved with WBC count of 11.0 Blood cultures from 04/09 positive but blood cultures since 04/10 negative. Follow-up case management for discharge planning 04/14/24 Continue IV ceftriaxone 2 g daily and IV gentamicin daily as per ID recommendations Will follow-up official results of MARINA Blood cultures from 04/09 positive for Streptococcus bovis Follow-up ID for further recommendations Will follow-up case management for discharge planning Anticipating discharge in 48 to 72 hours Attestations Medical Necessity Statement*: Continue to hospitalize patient. For above issues. Time Spent in Patient Care: 15 minutes Coding Level of Care Code Acute Code for Chg Fwd Diagnoses Type 2 diabetes mellitus with hyperglycemia, with long-term current use of insulin E11.65; Z79.4 Diabetes mellitus type: type 2 Diabetes mellitus group home insulin use: with [employer] use Diabetes mellitus complication status: with hyperglycemia Essential hypertension I10 Hypertension type: essential hypertension Other persistent atrial fibrillation I48.19 Atrial fibrillation type: other persistent Abdominal aortic aneurysm (AAA) without rupture I71.4 Presence of rupture: without rupture Peripheral vascular disease I73.9 Chronic anticoagulation Z79.01 Aortic valve stenosis, etiology of cardiac valve disease unspecified I35.0 Cardiac valve disease etiology: etiology unspecified Peripheral neuropathy G62.9 Atherosclerosis of [place] coronary artery, unspecified whether angina present, unspecified whether [place] or transplanted heart I25.10 Coronary Disease-Associated Artery/Lesion type: [place] artery [place] vs. transplanted heart: unspecified whether [place] or transplanted heart Associated angina: unspecified whether angina present Status post cardiac revascularization with bypass aortocoronary anastomosis of five coronary vessels Z95.1 History of aortic valve replacement Z95.2 Time Spent (min) 15
[2024-04-14] MEDS: GENTAMICIN IV (13:33)
[2024-04-14] MEDS: SODIUM CHLORIDE 0.9% IV (13:33)
[2024-04-14 16:00] VITALS: BP 141/86; PULSE 90; RESP 16; TEMP 36.8; O2SAT 98
[2024-04-14] MEDS: atorvastatin 40 mg Tablet 80 MG PO (17:11)
[2024-04-14 17:15] LABS: Glucose Point of Care 144 mg/dL (70-110)
[2024-04-14 19:25] VITALS: BP 110/63; PULSE 75; RESP 19; TEMP 36.7; O2SAT 95
[2024-04-14] MEDS: cefTRIAXone 2,000 mg SDV 2000 MG IVP (20:23)
[2024-04-14 21:00] LABS: Glucose Point of Care 137 mg/dL (70-110)
[2024-04-15] VITALS (9 sets, daily range): BP systolic 105–170; BP diastolic 61–87; PULSE 60–85; RESP 16–26; TEMP 36.5–37.7; O2SAT 92–95
[2024-04-15] MEDS: aspirin 81 mg EC Tablet PO (05:27)
[2024-04-15] MEDS: sertraline 100 mg Tablet 150 MG PO (05:27)
[2024-04-15 06:31] LABS: Glucose Point of Care 176 mg/dL (70-110)
[2024-04-15] MEDS: pantoprazole 40 mg SDV IVP (08:42)
[2024-04-15] MEDS: insulin lispro 100 unit/1 mL SUBCUT ×4 (08:42→21:59)
[2024-04-15] MEDS: sennosides 8.6 mg Tablet 17.2 MG PO ×2 (08:42→17:09)
[2024-04-15] MEDS: folic acid 1 mg Tablet PO (08:42)
[2024-04-15] MEDS: magnesium oxide 400 mg tablet PO (08:42)
[2024-04-15] MEDS: apixaban 5 mg Tablet PO ×2 (08:42→17:09)
[2024-04-15] MEDS: metoprolol tartrate 25 mg Tablet PO ×2 (08:45→20:16)
--- NOTE | 2024-04-15 10:41 | PM.PN ---
Subjective Subjective: No acute overnight events noted. Seen him at bedside this morning, resting comfortably in bed. Medications: Reviewed: Yes Vitals/I&O/Wt Last Vital Signs Temp 98.1 F 04/15/24 07:33 Pulse 80 04/15/24 07:33 Resp 18 04/15/24 07:33 BP 138/66 04/15/24 07:33 Pulse Ox 92 04/15/24 07:33 O2 Del Method Room Air 04/15/24 07:33 O2 Flow Rate 6 04/13/24 12:38 04/14/24 04/15/24 04/15/24 22:59 06:59 14:59 Intake Total 586.75 / 946.75 240 / 240 Output Total 1200 / 1200 2100 / 3300 800 / 800 Balance -613.25 / -253.25 -2100 / -2353.25 -560 / -560 Weight last 48 hrs Weight 87.288 kg Weight 89.103 kg Physical Exam Narrative: General: Alert oriented x 3. Laying in bed. Able to have a conversation with me today. A lot more coherent compared to admission. HEENT: Normocephalic, atraumatic, EOMI, on nasal cannula 2 L. Cardio: Regular rate rhythm, normal S1-S2, no gross murmurs present. Respiratory: Clear to auscultation bilaterally no gross wheezes or rhonchi appreciated. GI: Abdomen soft, nontender, nondistended, bowel sounds + Extremities: No edema noted. Neuro: Very mild left eyelid droop noted, mild facial droop present., Cranial nerves II to XII intact, patient able to follow commands and moves all 4 extremities spontaneously, strength bilateral upper and lower extremities equal 4 out of 5. Overall appears to be deconditioned and weak. ? Urinary Catheter Management: Benson: Cath Placed During This Visit: yes Reason for Continuing Indwelling Catheter: Acute Urinary Retention or Obstruction Urinary Catheter Date of Insertion: 04/09/24 Data 04/13/24 05:41 04/13/24 05:46 Micro: Microbiology 04/10/24 05:34 Blood Culture - Final Blood NO GROWTH AFTER 5 DAYS 04/10/24 05:36 Blood Culture - Final Blood NO GROWTH AFTER 5 DAYS A&P Assessment and plan (1) Diabetes mellitus: Qualifiers: Diabetes mellitus type: type 2 Diabetes mellitus fdc insulin use: with fdc use Diabetes mellitus complication status: with hyperglycemia Qualified Code(s): E11.65 - Type 2 diabetes mellitus with hyperglycemia; Z79.4 - skilled nursing (current) use of 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 Qualifiers: Cardiac valve disease etiology: etiology unspecified Qualified Code(s): I35.0 - Nonrheumatic aortic (valve) stenosis (8) Peripheral neuropathy: (9) Atherosclerosis of coronary artery: Qualifiers: Coronary Disease-Associated Artery/Lesion type: [place] artery [place] vs. transplanted heart: unspecified whether [place] or transplanted heart Associated angina: unspecified whether angina present Qualified Code(s): I25.10 - Atherosclerotic heart disease of [place] coronary artery without angina pectoris (10) Status post cardiac revascularization with bypass aortocoronary anastomosis of five coronary vessels: October 2022. (11) History of aortic valve replacement: Plan #Sepsis secondary to unknown source?criteria met by fever, lactic acid 2.3, WBC count 25,000 #Fever, altered mental status #Leukocytosis #Alcohol abuse #Atrial fibrillation. #History of CABG and aortic valve replacement 2022. #Coronary artery disease, triple-vessel status post CABG #History of mitral valve endocarditis, history of ESBL UTI, history of bacteremia #Hypertension #Hyperlipidemia #GERD #Chronic anticoagulation with Eliquis - Admit to icu for closer monitoring ?Check blood cultures, urine culture, sputum culture Gram stain ? Continue Eliquis ? Hold home amlodipine, Lasix, metformin, sitagliptin, tamsulosin ? Continue sertraline, atorvastatin, aspirin ? Will check lumbar puncture and CSF analysis studies to isolate the source, will hold Eliquis. ? CT abdomen pelvis and chest reviewed no acute pathology noticed ? Will also check MRI brain to rule out a stroke however my suspicion is low at this time. ? With history of patient's endocarditis multiple occasions of bacteremia and ESBL UTI I do suspect that his blood cultures will most likely be positive. ? Will consider imaging of lumbar spine should blood cultures turn positive. ? Continue on Zyvox and meropenem. Zyvox chosen secondary to vancomycin shortage ? Placed on CIWA protocol. I will go ahead and give 2 mg of Ativan at this time. Patient may be withdrawing. His last drink was on Tuesday. Does drink alcohol every other day 9 beers a day as per . ? Continue thiamine folic acid ? Check CRP in a.m., CMP, magnesium, CBC ? Continue on normal saline 75 cc/h. Patient did get 2 L bolus in the ER. ? Will check echocardiogram. ? Chec troponins reviewed?flat. Delta 0.5. ? Check procalcitonin ? UA is positive for protein glucose ketones and blood. Check hemoglobin A1c ? Respiratory viral panel pending at this time ? COVID and influenza are negative?tested in the ER ? CT head negative in ER ?Discussed plan with at bedside, nursing staff. ? Speech therapy eval. Full Code On Eliquis 04/10/2024 -Lumbar puncture pending at this time. Patient did have Eliquis yesterday morning possibly and the day before and is on aspirin daily at home. Discussed with and she states she is not sure if she took his meds on Tuesday or not. However she would like for us to do the lumbar puncture after a 48-hour washout. Will plan that for tomorrow morning. Discussed with radiology as well. Continue to hold Eliquis at this time and aspirin. ? Discussed with regarding patient's eyelid droop this morning and results of CTA head and neck. He will need vascular surgery follow-up as an outpatient. ? Await final speciation of blood cultures. ? Repeat blood cultures today ? Continue on vancomycin and meropenem. Stop Zyvox. I have been told by pharmacy that vancomycin shortage no longer present. This will also cover for possible meningitis if there is any. I have a low suspicion at this time however secondary to fever and altered mental status on initial presentation we will go ahead and obtain spinal fluid and sent for analysis. ? Also been complaining of lower back pain. I will order MRI lumbar spine today to rule out epidural abscess. ? Blood cultures 2 out of 4 positive at this time. Sensitivity and speciation pending at this time. ? TTE negative for vegetation. Will discuss with cardiology regarding MARINA. ? Respiratory viral panel negative, COVID influenza negative. ? Continue on CIWA protocol. Continue thiamine folic acid ? Speech therapy evaluated the patient. Okay to proceed with dysphagia level 5 diet at this time. Once patient more awake and alert expect his dysphagia to resolved. ? Check MRI brain to rule out stroke. ? Placed on metoprolol 25 twice daily. Patient is on any rate controlling agents at home. ? Sliding scale insulin moderate dose intensity ? Lasix 40 IV x 1 ordered. Continue atorvastatin. Hold off on amlodipine at this time. ? Tylenol for fever. ? Discussed above plan with in detail. ? Sputum Gram stain culture pending, urine culture pending. ? Time was spent today discussing with neurology and radiology and physician who assessed patient for facial droop this morning, nursing staff, over the phone. 04/11/2024 -Lumbar puncture today. After procedure may be start aspirin and Eliquis. ? Results of CTA head and neck reviewed with family. He does have bilateral carotid artery stenosis and will need vascular surgery follow-up as an outpatient ? Blood cultures 2 out of 4 bottles positive for Streptococcus species. Final sensitivity pending. ? Continue vancomycin and meropenem to cover for possible meningitis and bacteremia. ? TTE negative for vegetation. Will discuss with cardiology regarding MARINA. Consult cardiology today. ? Speech therapy following patient. Patient is on regular thin liquids at this time. ? MRI brain did showed tiny acute lacunar infarcts in same territory. Embolic stroke not definitive. Discussed with radiology. Patient does have history of atrial fibrillation and prior to admission is unsure if he took his Eliquis for a day or 2 due to altered mental status. Did discuss with neurology. Patient is not a candidate for TNKase secondary to Eliquis use. ? Continue metoprolol 25 twice daily ? Patient did get Lasix 40 IV x 1. Patient is 1 L negative since admission ? Sputum Gram stain culture pending, urine culture pending ? Updated family over the phone. Order PT OT ? Increase atorvastatin to 80 mg daily. ? Going forward patient will be on aspirin and Eliquis. ? Patient does have risk factors for endocarditis. He has history of mitral valve endocarditis in the past and has a bioprosthetic aortic valve. He has had bacteremia before and ESBL UTIs. Will discuss with cardiology regarding MARINA. Consider ID consult. 11/21/24 refused lumbar puncture yesterday. ID consult appreciated. Antibiotics changed to IV ceftriaxone 2 g daily. Will follow-up ID for further recommendations Plan for MARINA in a.m. will keep him n.p.o. past midnight. Follow-up cardiology for further recommendations Continue to monitor, WBC count improving to 13.8, follow-up final blood cultures. 04/13/24 Continue IV ceftriaxone 2 g daily as per ID recommendations Will follow-up MARINA Leukocytosis resolved with WBC count of 11.0 Blood cultures from 04/09 positive but blood cultures since 04/10 negative. Follow-up case management for discharge planning 04/14/24 Continue IV ceftriaxone 2 g daily and IV gentamicin daily as per ID recommendations Will follow-up official results of MARINA Blood cultures from 04/09 positive for Streptococcus bovis Follow-up ID for further recommendations Will follow-up case management for discharge planning Anticipating discharge in 48 to 72 hours 04/15/24 Vital signs stable, continue current management. Awaiting for discharge planning Attestations Medical Necessity Statement*: Continue to hospitalize patient. For above issues. Anticipating discharge in 24 to 48 hours Time Spent in Patient Care: 15 minutes Coding Level of Care Code Acute Code for Chg Fwd Diagnoses Type 2 diabetes mellitus with hyperglycemia, with long-term current use of insulin E11.65; Z79.4 Diabetes mellitus type: type 2 Diabetes mellitus fdc insulin use: with fdc use Diabetes mellitus complication status: with hyperglycemia Essential hypertension I10 Hypertension type: essential hypertension Other persistent atrial fibrillation I48.19 Atrial fibrillation type: other persistent Abdominal aortic aneurysm (AAA) without rupture I71.4 Presence of rupture: without rupture Peripheral vascular disease I73.9 Chronic anticoagulation Z79.01 Aortic valve stenosis, etiology of cardiac valve disease unspecified I35.0 Cardiac valve disease etiology: etiology unspecified Peripheral neuropathy G62.9 Atherosclerosis of [place] coronary artery, unspecified whether angina present, unspecified whether [place] or transplanted heart I25.10 Coronary Disease-Associated Artery/Lesion type: [place] artery [place] vs. transplanted heart: unspecified whether [place] or transplanted heart Associated angina: unspecified whether angina present Status post cardiac revascularization with bypass aortocoronary anastomosis of five coronary vessels Z95.1 History of aortic valve replacement Z95.2 Time Spent (min) 15
[2024-04-15 11:01] LABS: Glucose Point of Care 176 mg/dL (70-110)
[2024-04-15] MEDS: SODIUM CHLORIDE 0.9% IV (14:38)
[2024-04-15] MEDS: GENTAMICIN IV (14:38)
[2024-04-15 15:58] LABS: Glucose Point of Care 161 mg/dL (70-110)
[2024-04-15] MEDS: atorvastatin 40 mg Tablet 80 MG PO (17:09)
[2024-04-15] MEDS: cefTRIAXone 2,000 mg SDV 2000 MG IVP (20:15)
[2024-04-15 20:52] LABS: Glucose Point of Care 181 mg/dL (70-110)
--- NOTE | 2024-04-15 23:23 | PC.NURSE ---
Rekha TRAN taking care of patient until approximately 22:30 at which point this nurse assumed care.
[2024-04-16] VITALS (13 sets, daily range): BP systolic 107–144; BP diastolic 55–77; PULSE 65–75; RESP 15–21; TEMP 36.7–37.5; O2SAT 90–95
[2024-04-16] MEDS: sertraline 100 mg Tablet 150 MG PO (05:42)
[2024-04-16] MEDS: aspirin 81 mg EC Tablet PO (05:43)
[2024-04-16 06:24] LABS: Glucose Point of Care 141 mg/dL (70-110)
[2024-04-16] MEDS: magnesium oxide 400 mg tablet PO (08:34)
[2024-04-16] MEDS: sennosides 8.6 mg Tablet 17.2 MG PO ×2 (08:34→17:34)
[2024-04-16] MEDS: pantoprazole 40 mg SDV IVP (08:34)
[2024-04-16] MEDS: apixaban 5 mg Tablet PO ×2 (08:35→17:34)
[2024-04-16] MEDS: insulin lispro 100 unit/1 mL SUBCUT ×3 (08:35→17:33)
[2024-04-16] MEDS: folic acid 1 mg Tablet PO (08:35)
[2024-04-16] MEDS: metoprolol tartrate 25 mg Tablet PO ×2 (08:38→20:48)
--- NOTE | 2024-04-16 11:04 | PC.NURSE ---
Benson cath removed. 10ml of fluid removed from balloon first. Pt tolerated very well.
[2024-04-16 11:12] LABS: Glucose Point of Care 162 mg/dL (70-110)
--- NOTE | 2024-04-16 13:16 | XR_ITS ---
WS: [id number] Portable AP supine chest, 04/16/2024 Clinical Data: Post PICC insertion Comparison: Portable chest, 04/09/2024 Findings: The right PICC line enters the superior vena cava. No pneumothorax is seen. XR/XR chest 1V portable [id number] Impression: Satisfactory insertion of right PICC line.
[2024-04-16] MEDS: GENTAMICIN IV (13:25)
[2024-04-16] MEDS: SODIUM CHLORIDE 0.9% IV (13:25)
--- NOTE | 2024-04-16 14:04 | PM.PN ---
Subjective Subjective: No acute overnight events noted. As per PT he is able to walk with walker. Medications: Reviewed: Yes Vitals/I&O/Wt Last Vital Signs Temp 98.2 F 04/16/24 11:54 Pulse 65 04/16/24 11:54 Resp 15 04/16/24 11:54 BP 117/63 04/16/24 11:54 Pulse Ox 95 04/16/24 11:54 O2 Del Method Room Air 04/16/24 11:54 O2 Flow Rate 6 04/13/24 12:38 04/15/24 04/16/24 04/16/24 22:59 06:59 14:59 Intake Total 826.75 / 1306.75 840 / 840 Output Total 500 / 1300 1525 / 2825 1350 / 1350 Balance 326.75 / 6.75 -1525 / -1518.25 -510 / -510 Weight last 48 hrs Weight 88.405 kg Weight 87.288 kg Physical Exam Narrative: General: Alert oriented x 3. Laying in bed. Able to have a conversation with me today. A lot more coherent compared to admission. HEENT: Normocephalic, atraumatic, EOMI, on nasal cannula 2 L. Cardio: Regular rate rhythm, normal S1-S2, no gross murmurs present. Respiratory: Clear to auscultation bilaterally no gross wheezes or rhonchi appreciated. GI: Abdomen soft, nontender, nondistended, bowel sounds + Extremities: No edema noted. Neuro: Very mild left eyelid droop noted, mild facial droop present., Cranial nerves II to XII intact, patient able to follow commands and moves all 4 extremities spontaneously, strength bilateral upper and lower extremities equal 4 out of 5. Overall appears to be deconditioned and weak. ? Urinary Catheter Management: Benson: Cath Placed During This Visit: yes, but has since been removed by the nurse Reason for Continuing Indwelling Catheter: Decision to DC Catheter Urinary Catheter Date of Insertion: 04/09/24 Date Urinary Catheter Removed: 04/16/24 Time Urinary Catheter Discontinued: 11:00 Data 04/13/24 05:41 04/13/24 05:46 Micro: Microbiology 04/10/24 17:52 Blood Culture - Final Blood NO GROWTH AFTER 5 DAYS 04/10/24 17:47 Blood Culture - Final Blood NO GROWTH AFTER 5 DAYS A&P Assessment and plan (1) Diabetes mellitus: Qualifiers: Diabetes mellitus type: type 2 Diabetes mellitus intermediate manager insulin use: with intermediate manager use Diabetes mellitus complication status: with hyperglycemia Qualified Code(s): E11.65 - Type 2 diabetes mellitus with hyperglycemia; Z79.4 - intermodal customer service (current) use of 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 Qualifiers: Cardiac valve disease etiology: etiology unspecified Qualified Code(s): I35.0 - Nonrheumatic aortic (valve) stenosis (8) Peripheral neuropathy: (9) Atherosclerosis of coronary artery: Qualifiers: Coronary Disease-Associated Artery/Lesion type: [place] artery [place] vs. transplanted heart: unspecified whether [place] or transplanted heart Associated angina: unspecified whether angina present Qualified Code(s): I25.10 - Atherosclerotic heart disease of [place] coronary artery without angina pectoris (10) Status post cardiac revascularization with bypass aortocoronary anastomosis of five coronary vessels: October 2022. (11) History of aortic valve replacement: Plan #Sepsis secondary to unknown source?criteria met by fever, lactic acid 2.3, WBC count 25,000 #Fever, altered mental status #Leukocytosis #Alcohol abuse #Atrial fibrillation. #History of CABG and aortic valve replacement 2022. #Coronary artery disease, triple-vessel status post CABG #History of mitral valve endocarditis, history of ESBL UTI, history of bacteremia #Hypertension #Hyperlipidemia #GERD #Chronic anticoagulation with Eliquis - Admit to icu for closer monitoring ?Check blood cultures, urine culture, sputum culture Gram stain ? Continue Eliquis ? Hold home amlodipine, Lasix, metformin, sitagliptin, tamsulosin ? Continue sertraline, atorvastatin, aspirin ? Will check lumbar puncture and CSF analysis studies to isolate the source, will hold Eliquis. ? CT abdomen pelvis and chest reviewed no acute pathology noticed ? Will also check MRI brain to rule out a stroke however my suspicion is low at this time. ? With history of patient's endocarditis multiple occasions of bacteremia and ESBL UTI I do suspect that his blood cultures will most likely be positive. ? Will consider imaging of lumbar spine should blood cultures turn positive. ? Continue on Zyvox and meropenem. Zyvox chosen secondary to vancomycin shortage ? Placed on CIWA protocol. I will go ahead and give 2 mg of Ativan at this time. Patient may be withdrawing. His last drink was on Tuesday. Does drink alcohol every other day 9 beers a day as per . ? Continue thiamine folic acid ? Check CRP in a.m., CMP, magnesium, CBC ? Continue on normal saline 75 cc/h. Patient did get 2 L bolus in the ER. ? Will check echocardiogram. ? Chec troponins reviewed?flat. Delta 0.5. ? Check procalcitonin ? UA is positive for protein glucose ketones and blood. Check hemoglobin A1c ? Respiratory viral panel pending at this time ? COVID and influenza are negative?tested in the ER ? CT head negative in ER ?Discussed plan with at bedside, nursing staff. ? Speech therapy eval. Full Code On Eliquis 04/10/2024 -Lumbar puncture pending at this time. Patient did have Eliquis yesterday morning possibly and the day before and is on aspirin daily at home. Discussed with and she states she is not sure if she took his meds on Tuesday or not. However she would like for us to do the lumbar puncture after a 48-hour washout. Will plan that for tomorrow morning. Discussed with radiology as well. Continue to hold Eliquis at this time and aspirin. ? Discussed with regarding patient's eyelid droop this morning and results of CTA head and neck. He will need vascular surgery follow-up as an outpatient. ? Await final speciation of blood cultures. ? Repeat blood cultures today ? Continue on vancomycin and meropenem. Stop Zyvox. I have been told by pharmacy that vancomycin shortage no longer present. This will also cover for possible meningitis if there is any. I have a low suspicion at this time however secondary to fever and altered mental status on initial presentation we will go ahead and obtain spinal fluid and sent for analysis. ? Also been complaining of lower back pain. I will order MRI lumbar spine today to rule out epidural abscess. ? Blood cultures 2 out of 4 positive at this time. Sensitivity and speciation pending at this time. ? TTE negative for vegetation. Will discuss with cardiology regarding MARINA. ? Respiratory viral panel negative, COVID influenza negative. ? Continue on CIWA protocol. Continue thiamine folic acid ? Speech therapy evaluated the patient. Okay to proceed with dysphagia level 5 diet at this time. Once patient more awake and alert expect his dysphagia to resolved. ? Check MRI brain to rule out stroke. ? Placed on metoprolol 25 twice daily. Patient is on any rate controlling agents at home. ? Sliding scale insulin moderate dose intensity ? Lasix 40 IV x 1 ordered. Continue atorvastatin. Hold off on amlodipine at this time. ? Tylenol for fever. ? Discussed above plan with in detail. ? Sputum Gram stain culture pending, urine culture pending. ? Time was spent today discussing with neurology and radiology and physician who assessed patient for facial droop this morning, nursing staff, over the phone. 04/11/2024 -Lumbar puncture today. After procedure may be start aspirin and Eliquis. ? Results of CTA head and neck reviewed with family. He does have bilateral carotid artery stenosis and will need vascular surgery follow-up as an outpatient ? Blood cultures 2 out of 4 bottles positive for Streptococcus species. Final sensitivity pending. ? Continue vancomycin and meropenem to cover for possible meningitis and bacteremia. ? TTE negative for vegetation. Will discuss with cardiology regarding MARINA. Consult cardiology today. ? Speech therapy following patient. Patient is on regular thin liquids at this time. ? MRI brain did showed tiny acute lacunar infarcts in same territory. Embolic stroke not definitive. Discussed with radiology. Patient does have history of atrial fibrillation and prior to admission is unsure if he took his Eliquis for a day or 2 due to altered mental status. Did discuss with neurology. Patient is not a candidate for TNKase secondary to Eliquis use. ? Continue metoprolol 25 twice daily ? Patient did get Lasix 40 IV x 1. Patient is 1 L negative since admission ? Sputum Gram stain culture pending, urine culture pending ? Updated family over the phone. Order PT OT ? Increase atorvastatin to 80 mg daily. ? Going forward patient will be on aspirin and Eliquis. ? Patient does have risk factors for endocarditis. He has history of mitral valve endocarditis in the past and has a bioprosthetic aortic valve. He has had bacteremia before and ESBL UTIs. Will discuss with cardiology regarding MARINA. Consider ID consult. 04/12/24 refused lumbar puncture yesterday. ID consult appreciated. Antibiotics changed to IV ceftriaxone 2 g daily. Will follow-up ID for further recommendations Plan for MARINA in a.m. will keep him n.p.o. past midnight. Follow-up cardiology for further recommendations Continue to monitor, WBC count improving to 13.8, follow-up final blood cultures. 04/13/24 Continue IV ceftriaxone 2 g daily as per ID recommendations Will follow-up MARINA Leukocytosis resolved with WBC count of 11.0 Blood cultures from 04/09 positive but blood cultures since 04/10 negative. Follow-up case management for discharge planning 04/14/24 Continue IV ceftriaxone 2 g daily and IV gentamicin daily as per ID recommendations Will follow-up official results of MARINA Blood cultures from 04/09 positive for Streptococcus bovis Follow-up ID for further recommendations Will follow-up case management for discharge planning Anticipating discharge in 48 to 72 hours 04/15/24 Vital signs stable, continue current management. Awaiting for discharge planning 04/16/24 MARINA negative for any vegetation. Blood cultures initially growing Streptococcus. Follow-up ID for further recommendations. Will need a PICC line for IV antibiotics for 6 weeks. Follow-up case management for discharge planning Attestations Medical Necessity Statement*: Anticipating discharge in 24 to 48 hours Time Spent in Patient Care: 10 minutes Coding Level of Care Code Acute Code for Chg Fwd Diagnoses Type 2 diabetes mellitus with hyperglycemia, with long-term current use of insulin E11.65; Z79.4 Diabetes mellitus type: type 2 Diabetes mellitus intermediate manager insulin use: with intermediate manager use Diabetes mellitus complication status: with hyperglycemia Essential hypertension I10 Hypertension type: essential hypertension Other persistent atrial fibrillation I48.19 Atrial fibrillation type: other persistent Abdominal aortic aneurysm (AAA) without rupture I71.4 Presence of rupture: without rupture Peripheral vascular disease I73.9 Chronic anticoagulation Z79.01 Aortic valve stenosis, etiology of cardiac valve disease unspecified I35.0 Cardiac valve disease etiology: etiology unspecified Peripheral neuropathy G62.9 Atherosclerosis of [place] coronary artery, unspecified whether angina present, unspecified whether [place] or transplanted heart I25.10 Coronary Disease-Associated Artery/Lesion type: [place] artery [place] vs. transplanted heart: unspecified whether [place] or transplanted heart Associated angina: unspecified whether angina present Status post cardiac revascularization with bypass aortocoronary anastomosis of five coronary vessels Z95.1 History of aortic valve replacement Z95.2 Time Spent (min) 10
--- NOTE | 2024-04-16 14:30 | PICC.NOTE ---
Single lumen PICC placed to right basilic vein. Referred to vascular access nurse for PICC placement due to need for IV antibiotics x 6 weeks. Risks and benefits discussed and informed consent obtained from pt. Right arm assessed with right basilic vein measuring 6.3 mm, straight, and apparent best choice for placement. Using sterile technique and MST, right basilic vein accessed x 1 stick. Mid-arm circumference measured 10 cm from right AC 27 cm. Trimmed cath 44 cm with 0 cm external length noted. CXR shows tip in SVC, in good position for use per radiologist. Line secured with stat-lock. Insertion site covered with Biopatch and TSM. Report given to charge nurse, SHERI Rodriguez
--- NOTE | 2024-04-16 15:22 | PC.SOCIAL ---
IMM Update pg 2 of IMM updated and reviewed w/ patient/ copy provided and copy dated, initialed and placed in chart.
[2024-04-16 17:22] LABS: Glucose Point of Care 281 mg/dL (70-110)
[2024-04-16] MEDS: atorvastatin 40 mg Tablet 80 MG PO (17:34)
[2024-04-16 18:04] LABS: SARS Covid-2 Antigen negative (Negative)
[2024-04-16 18:21] LABS: Albumin Level 2.6 g/dL (3.5-5.2); Alkaline Phosphatase 358 U/L (40-130); Blood Urea Nitrogen 16 mg/dL (8-23); Calcium 8.1 mg/dL (8.5-10.5); Carbon Dioxide 22 mmol/L (22-29); Chloride 90 mmol/L (98-107); Creatinine Clr Calc Pharmacy 79.6464; Glucose 288 mg/dL (65-115); Osmolality Calculated 268 mOsm/kg (285-295); Sodium 123 mmol/L (136-145); Total Bilirubin 0.7 mg/dL (0.15-1.2); Total Protein 6.6 g/dL (6.6-8.7)
[2024-04-16 18:28] LABS: Alanine Aminotransferase 69 U/L (0-41); Anion Gap 15.3 (5-19); Aspartate Amino Transferase 130 U/L (0-40); Potassium 4.3 mmol/L (3.5-5.1)
--- NOTE | 2024-04-16 19:26 | PC.NURSE ---
Shift summary: This pleasant gentleman has been up ad bhupendra in his room today with a walker. He has ambulated in hallway 2-3 times today with PT. PICC line placed in Right basilic vein . Benson cath removed. He has made multiple trips to restroom afterwards. He has also had a BM today. He has shaved. He has ate most of his meals. His blood sugars at breakfast and lunch required 4 units of Humalog. His blood sugar at dinner was higher, 281mg/dl, requiring 10 units of Humalog.
[2024-04-16 20:44] LABS: Glucose Point of Care 137 mg/dL (70-110)
[2024-04-16] MEDS: cefTRIAXone 2,000 mg SDV 2000 MG IVP (20:49)
--- NOTE | 2024-04-16 23:54 | P.PN_ITS ---
Subjective 2 Subjective: Infectious disease progress note. More alert and awake now compared to previous exam. Per report has been ambulating in the room. Tmax 99.5, leukocytosis remains resolved. Worsening liver enzymes. Normal renal function. Medications: Reviewed: Yes Vitals/I&O/Wt Last Vital Signs Temp 99.5 F 04/16/24 23:47 Pulse 67 04/16/24 23:47 Resp 17 04/16/24 23:47 BP 132/77 04/16/24 23:47 Pulse Ox 94 04/16/24 23:47 O2 Del Method Room Air 04/16/24 23:47 O2 Flow Rate 6 04/13/24 12:38 04/16/24 04/16/24 04/17/24 14:59 22:59 06:59 Intake Total 840 / 840 842.75 / 1682.75 Output Total 1350 / 1350 Balance -510 / -510 842.75 / 332.75 Weight last 48 hrs Weight 88.405 kg Weight 87.288 kg Physical Exam 2 Narrative: General: No acute distress, AO x3 HEENT: PERRLA, pupils bilaterally equal and reactive, pallors not present Chest: Normal vesicular breath sounds, no added sounds, equal good air entry bilaterally CVS: S1-S2 regular, no murmurs, no tachycardia, no gallops, no rubs Abdomen: Soft, nontender, no organomegaly, bowel sounds present neuro: No focal neurological deficits Urinary Catheter Management: Benson: Cath Placed During This Visit: yes, but has since been removed by the nurse Reason for Continuing Indwelling Catheter: Decision to DC Catheter Urinary Catheter Date of Insertion: 04/09/24 Date Urinary Catheter Removed: 04/16/24 Time Urinary Catheter Discontinued: 11:00 Data 04/17/24 05:03 04/16/24 17:27 Micro: Microbiology 04/10/24 17:52 Blood Culture - Final Blood NO GROWTH AFTER 5 DAYS 04/10/24 17:47 Blood Culture - Final Blood NO GROWTH AFTER 5 DAYS A&P Assessment and plan (1) Endocarditis: Patient meets modified [place] criteria for possible endocarditis with 1 major (blood culture positive with atypical organism that is strep bovis ) + at least 2 minor clinical criteria (predisposing heart condition by way of prosthetic heart valve, fever) MRI findings discussed with radiologist- acute infarct findings in the left parietal cortex and left frontal cortex less likely septic embolization. 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 Echo was negative for vegetations. He is s/p aortic valve replacement, now with a bioprosthetic valve in place since 08/2022. Per review of outpatient cardiology notes, she was treated for mitral valve endocarditis in 10/2022. Records requested from [facility]. Unknown organism and treatment course at this time. 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 no current obvious joint swelling , no h/o underlying hardware fusiform aortic aneursym - stable over previous - no graft material ? mycotic aneurysm. Will follow Qualifiers: Endocarditis type: other Chronicity: unspecified Qualified Code(s): I 38 - Endocarditis, valve unspecified (2) History of aortic valve replacement: requested records from [facility] (3) Atrial fibrillation: Qualifiers: Atrial fibrillation type: other persistent Qualified Code(s): I48.19 - Other persistent atrial fibrillation (4) CVA (cerebral vascular accident): Plan 04/16/2024: Kidney function currently normal. Worsening transaminitis, AST noted to be at 130, increased from 56 on admission on 1118. Per review of past numbers, patient has had baseline AST fluctuating between 36-106 previously. ALT up to 69, previously normal upon admission. Alkaline phosphatase of 358 from 312 upon admission. Has been chronically elevated between 2 30-3 09 Previously. Denies any abdominal pain. T. bili normal. Will order for liver ultrasound to assess for any underlying cirrhosis and/or cholecystitis. I do ceftriaxone may be associated with cholestasis and/or cholecystitis. Check hepatitis panel. Consider holding statin if not contraindicated from a cardiac standpoint. Blood cultures updated to reflect strep bovis and all cultures taken on 04/09/2024. Blood culture cleared as of 04/10/2024. Depending on liver ultrasound, we will decide regarding continuing high-dose ceftriaxone versus switch to vancomycin. Recommend weekly labs including CBC, creatinine, LFT while on above antibiotics. Gentamicin will be discontinued on discharge as trough levels cannot be checked reliably either with home or SNF discharge. Currently kidney function is stable with use of gentamicin. Attestations 2 Medical Necessity Statement*: Per admitting Coding Level of Care Code Acute Code for g Fwd Diagnoses Other endocarditis, unspecified chronicity I38 Endocarditis type: other Chronicity: unspecified History of aortic valve replacement Z95.2 Other persistent atrial fibrillation I48.19 Atrial fibrillation type: other persistent CVA (cerebral vascular accident) I63.9
[2024-04-17] VITALS (8 sets, daily range): BP systolic 116–139; BP diastolic 68–84; PULSE 67–73; RESP 16–18; TEMP 36.4–37.5; O2SAT 93–95; BMI 25.9
[2024-04-17] MEDS: aspirin 81 mg EC Tablet PO (05:05)
[2024-04-17] MEDS: sertraline 100 mg Tablet 150 MG PO (05:05)
[2024-04-17 06:04] LABS: Basophils # 0.1 10^3/uL (0.0-0.1); Basophils % 0.8 %; Eosinophils # 0.2 10^3/uL (0.0-0.8); Eosinophils % 2.1 %; Hematocrit 36.6 % (37-53); Lymphocytes # 1.3 10^3/uL (0.8-4.8); Lymphocytes % 12.6 %; Mean Corpuscular HGB Conc 32.5 g/dL (30-55); Mean Corpuscular Hemoglobin 30.5 pg (27-33); Mean Corpuscular Volume 93.8 fl (82-101); Mean Platelet Volume 12.1 fL (7.4-10.4); Monocytes # 1.1 10^3/uL (0.2-0.9); Monocytes % 11.4 %; Neutrophils # 7.09 10^3/uL (1.8-7.7); Neutrophils % 71.2 %; Nucleated Red Blood Cells % 0 %; Platelet Count 202 10^3/cmm (157-399); White Blood Count 9.96 10^3/uL (3.29-11.43)
[2024-04-17 06:27] LABS: Glucose Point of Care 170 mg/dL (70-110)
[2024-04-17 07:21] LABS: Alanine Aminotransferase 62 U/L (0-41); Albumin Level 2.6 g/dL (3.5-5.2); Alkaline Phosphatase 337 U/L (40-130); Anion Gap 14.1 (5-19); Aspartate Amino Transferase 91 U/L (0-40); Blood Urea Nitrogen 13 mg/dL (8-23); Calcium 8.2 mg/dL (8.5-10.5); Carbon Dioxide 23 mmol/L (22-29); Chloride 96 mmol/L (98-107); Creatinine Clr Calc Pharmacy 88.8283; Globulin 4.5 g/dL (1.3-4.6); Glucose 175 mg/dL (65-115); Osmolality Calculated 272 mOsm/kg (285-295); Potassium 4.1 mmol/L (3.5-5.1); Sodium 129 mmol/L (136-145); Total Bilirubin 0.8 mg/dL (0.15-1.2); Total Protein 7.1 g/dL (6.6-8.7)
[2024-04-17 07:42] LABS: Hepatitis A Antibody IgM Non-Reactive (Nonreactive); Hepatitis B Core IgM Non-Reactive (Nonreactive); Hepatitis B Surface Antigen Non-Reactive (Nonreactive); Hepatitis C Virus Antibody Non-Reactive (Nonreactive)
[2024-04-17] MEDS: sennosides 8.6 mg Tablet 17.2 MG PO (08:01)
[2024-04-17] MEDS: insulin lispro 100 unit/1 mL SUBCUT ×2 (08:01→12:33)
[2024-04-17] MEDS: folic acid 1 mg Tablet PO (08:01)
[2024-04-17] MEDS: magnesium oxide 400 mg tablet PO (08:01)
[2024-04-17] MEDS: apixaban 5 mg Tablet PO (08:01)
[2024-04-17] MEDS: pantoprazole 40 mg SDV IVP (08:02)
[2024-04-17] MEDS: metoprolol tartrate 25 mg Tablet PO (08:07)
[2024-04-17 10:31] LABS: Glucose Point of Care 192 mg/dL (70-110)
--- NOTE | 2024-04-17 10:42 | PM.DCS ---
Discharge Providers Date of Admission: 04/09/24 15:55 Date of Discharge: April 17, 2024 Attending Provider at Admission: Carol Dick MD Attending Provider at Discharge: Alexa Mcdowell MD Primary Care Provider: Kaila Mohr MD Diagnoses at Discharge Discharge Diagnosis (1) Endocarditis: Status: Acute Qualifiers: Endocarditis type: other Chronicity: unspecified Qualified Code(s): I38 - Endocarditis, valve unspecified (2) History of aortic valve replacement: Status: Chronic Permanent problem details: bioprosthetic (3) Atrial fibrillation: Status: Acute Qualifiers: Atrial fibrillation type: other persistent Qualified Code(s): I48.19 - Other persistent atrial fibrillation (4) CVA (cerebral vascular accident): Status: Acute Reason for Visit Reason for Visit: SOB Brief History: Azam Mccabe is a 78 year old male past medical history of oliguric aneurysm, aortic stenosis, atrial fibrillation, on chronic anticoagulation, COPD, diabetes mellitus, hypertension, peripheral vascular disease, recent CABG in July 2022 presented to the hospital today for complaint of altered mental status. Patient was brought in by the . History was mainly obtained from the chart and from the at bedside. She states that for the last 3 or 4 days he has had a fever. He was coughing however not really expectorating anything. Denied any vomiting however did have some dry heaving. Other than that she states there were no other symptoms that she noted. She said he has been getting more more confused over the last few days. She states he does drink alcohol and drinks 9 beers every other day. Last drink was Tuesday about 72 hours ago. She also states that he did complain of lower back pain last few days and he has never had that before. Seen in ICU room 2. Patient is quite agitated and restless in bed. He is constantly taking his sheet off and trying to get out of bed. Moving all 4 extremities. No facial droop noted. Altered. Awake alert however not oriented. Only able to tell me his name at this time. Patient is on Eliquis for atrial fibrillation. In the past 2022 he has had ESBL UTI and was placed on ertapenem for 14 days and discharged with a PICC line to home. In the past she has also been on warfarin. Previously he has had an echocardiogram which showed echogenic mobile structure measuring 10 x 8.3 mm noted attached to anterior mitral valve leaflet. Cardiology was consulted and this was thought to be a calcified chordae. Previously he is also had an event monitor. He did have a history of aortic valve stenosis and in October 2022 he had replacement of aortic valve with bioprosthetic valve and CABG. 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 Hospital Course Hospital Course Plan #Sepsis secondary to unknown source?criteria met by fever, lactic acid 2.3, WBC count 25,000 #Fever, altered mental status #Leukocytosis #Alcohol abuse #Atrial fibrillation. #History of CABG and aortic valve replacement 2022. #Coronary artery disease, triple-vessel status post CABG #History of mitral valve endocarditis, history of ESBL UTI, history of bacteremia #Hypertension #Hyperlipidemia #GERD #Chronic anticoagulation with Eliquis - Admit to icu for closer monitoring ?Check blood cultures, urine culture, sputum culture Gram stain ? Continue Eliquis ? Hold home amlodipine, Lasix, metformin, sitagliptin, tamsulosin ? Continue sertraline, atorvastatin, aspirin ? Will check lumbar puncture and CSF analysis studies to isolate the source, will hold Eliquis. ? CT abdomen pelvis and chest reviewed no acute pathology noticed ? Will also check MRI brain to rule out a stroke however my suspicion is low at this time. ? With history of patient's endocarditis multiple occasions of bacteremia and ESBL UTI I do suspect that his blood cultures will most likely be positive. ? Will consider imaging of lumbar spine should blood cultures turn positive. ? Continue on Zyvox and meropenem. Zyvox chosen secondary to vancomycin shortage ? Placed on CIWA protocol. I will go ahead and give 2 mg of Ativan at this time. Patient may be withdrawing. His last drink was on Tuesday. Does drink alcohol every other day 9 beers a day as per . ? Continue thiamine folic acid ? Check CRP in a.m., CMP, magnesium, CBC ? Continue on normal saline 75 cc/h. Patient did get 2 L bolus in the ER. ? Will check echocardiogram. ? Chec troponins reviewed?flat. Delta 0.5. ? Check procalcitonin ? UA is positive for protein glucose ketones and blood. Check hemoglobin A1c ? Respiratory viral panel pending at this time ? COVID and influenza are negative?tested in the ER ? CT head negative in ER ?Discussed plan with at bedside, nursing staff. ? Speech therapy eval. Full Code On Eliquis 04/10/2024 -Lumbar puncture pending at this time. Patient did have Eliquis yesterday morning possibly and the day before and is on aspirin daily at home. Discussed with and she states she is not sure if she took his meds on Tuesday or not. However she would like for us to do the lumbar puncture after a 48-hour washout. Will plan that for tomorrow morning. Discussed with radiology as well. Continue to hold Eliquis at this time and aspirin. ? Discussed with regarding patient's eyelid droop this morning and results of CTA head and neck. He will need vascular surgery follow-up as an outpatient. ? Await final speciation of blood cultures. ? Repeat blood cultures today ? Continue on vancomycin and meropenem. Stop Zyvox. I have been told by pharmacy that vancomycin shortage no longer present. This will also cover for possible meningitis if there is any. I have a low suspicion at this time however secondary to fever and altered mental status on initial presentation we will go ahead and obtain spinal fluid and sent for analysis. ? Also been complaining of lower back pain. I will order MRI lumbar spine today to rule out epidural abscess. ? Blood cultures 2 out of 4 positive at this time. Sensitivity and speciation pending at this time. ? TTE negative for vegetation. Will discuss with cardiology regarding MARINA. ? Respiratory viral panel negative, COVID influenza negative. ? Continue on CIWA protocol. Continue thiamine folic acid ? Speech therapy evaluated the patient. Okay to proceed with dysphagia level 5 diet at this time. Once patient more awake and alert expect his dysphagia to resolved. ? Check MRI brain to rule out stroke. ? Placed on metoprolol 25 twice daily. Patient is on any rate controlling agents at home. ? Sliding scale insulin moderate dose intensity ? Lasix 40 IV x 1 ordered. Continue atorvastatin. Hold off on amlodipine at this time. ? Tylenol for fever. ? Discussed above plan with in detail. ? Sputum Gram stain culture pending, urine culture pending. ? Time was spent today discussing with neurology and radiology and physician who assessed patient for facial droop this morning, nursing staff, over the phone. 04/11/2024 -Lumbar puncture today. After procedure may be start aspirin and Eliquis. ? Results of CTA head and neck reviewed with family. He does have bilateral carotid artery stenosis and will need vascular surgery follow-up as an outpatient ? Blood cultures 2 out of 4 bottles positive for Streptococcus species. Final sensitivity pending. ? Continue vancomycin and meropenem to cover for possible meningitis and bacteremia. ? TTE negative for vegetation. Will discuss with cardiology regarding MARINA. Consult cardiology today. ? Speech therapy following patient. Patient is on regular thin liquids at this time. ? MRI brain did showed tiny acute lacunar infarcts in same territory. Embolic stroke not definitive. Discussed with radiology. Patient does have history of atrial fibrillation and prior to admission is unsure if he took his Eliquis for a day or 2 due to altered mental status. Did discuss with neurology. Patient is not a candidate for TNKase secondary to Eliquis use. ? Continue metoprolol 25 twice daily ? Patient did get Lasix 40 IV x 1. Patient is 1 L negative since admission ? Sputum Gram stain culture pending, urine culture pending ? Updated family over the phone. Order PT OT ? Increase atorvastatin to 80 mg daily. ? Going forward patient will be on aspirin and Eliquis. ? Patient does have risk factors for endocarditis. He has history of mitral valve endocarditis in the past and has a bioprosthetic aortic valve. He has had bacteremia before and ESBL UTIs. Will discuss with cardiology regarding MARINA. Consider ID consult. 04/12/24 refused lumbar puncture yesterday. ID consult appreciated. Antibiotics changed to IV ceftriaxone 2 g daily. Will follow-up ID for further recommendations Plan for MARINA in a.m. will keep him n.p.o. past midnight. Follow-up cardiology for further recommendations Continue to monitor, WBC count improving to 13.8, follow-up final blood cultures. 04/13/24 Continue IV ceftriaxone 2 g daily as per ID recommendations Will follow-up MARINA Leukocytosis resolved with WBC count of 11.0 Blood cultures from 04/09 positive but blood cultures since 04/10 negative. Follow-up case management for discharge planning 04/14/24 Continue IV ceftriaxone 2 g daily and IV gentamicin daily as per ID recommendations Will follow-up official results of MARINA Blood cultures from 04/09 positive for Streptococcus bovis Follow-up ID for further recommendations Will follow-up case management for discharge planning Anticipating discharge in 48 to 72 hours 04/15/24 Vital signs stable, continue current management. Awaiting for discharge planning 04/16/24 MARINA negative for any vegetation. Blood cultures initially growing Streptococcus. Follow-up ID for further recommendations. Will need a PICC line for IV antibiotics for 6 weeks. Follow-up case management for discharge planning 04/17/24 He is stable, doing better, will discharge today with IV antibiotics ceftriaxone 2g daily for 6 weeks. Recommend weekly labs including CBC, creatinine, LFT while on above antibiotics. Physical Exam Narrative: General: Alert oriented x 3. Laying in bed. Able to have a conversation with me today. A lot more coherent compared to admission. HEENT: Normocephalic, atraumatic, EOMI, on nasal cannula 2 L. Cardio: Regular rate rhythm, normal S1-S2, no gross murmurs present. Respiratory: Clear to auscultation bilaterally no gross wheezes or rhonchi appreciated. GI: Abdomen soft, nontender, nondistended, bowel sounds + Extremities: No edema noted. Neuro: Very mild left eyelid droop noted, mild facial droop present., Cranial nerves II to XII intact, patient able to follow commands and moves all 4 extremities spontaneously, strength bilateral upper and lower extremities equal 4 out of 5. Overall appears to be deconditioned and weak. ? Urinary Catheter Management: Benson: Cath Placed During This Visit: yes, but has since been removed by the nurse Reason for Continuing Indwelling Catheter: Decision to DC Catheter Urinary Catheter Date of Insertion: 04/09/24 Date Urinary Catheter Removed: 04/16/24 Time Urinary Catheter Discontinued: 11:00 Discharge Data Studies Completed and Pending Completed Studies During Hospitalization Category Date Time Status CT chest abdomen pelvis [CT chest abdpel w/*[id number] Cat Scan 04/09/24 13:30 Completed ] Stat CT head wo con* [id number] Stat Cat Scan 04/09/24 11:26 Completed CTA head neck [CT angio headneck* [id number]] Stat Cat Scan 04/10/24 07:33 Completed CXRP [XR chest 1V portable [id number]] Routine Exams 04/16/24 13:16 Completed XR chest 1V portable [id number] Routine Exams 04/09/24 21:42 Completed XR chest 1V portable [id number] Stat Exams 04/09/24 11:26 Completed MR head wo con* [id number] Routine MRI 04/10/24 09:30 Completed MR lumbar spine wo/w con [id number] Routine MRI 04/10/24 14:21 Completed CV. echo complete* [id number] Stat Ultrasound 04/09/24 15:29 Completed MARINA [CV. echo transesophageal [id number]] Routine Ultrasound 04/13/24 11:30 Completed US liver [id number] Routine Ultrasound 04/17/24 23:51 Completed Pending at discharge Category Date Time Status Gentamicin Trough Timed Lab 04/17/24 12:45 Ordered Radiology Impressions Head CT 04/09/24 11:26 IMPRESSION: 1. No evidence of intracranial hemorrhage or mass effect. 2. Moderate small vessel changes. Moderate parenchymal volume loss. 3. Intracranial vascular calcification. LEFT 4. No acute intracranial findings. Notified Cha Castañeda MD at 04/09/2024 11:55 AM. Chest/Abdomen/Pelvis CT 04/09/24 13:30 IMPRESSION: 1. Chronic emphysematous changes. Bibasilar atelectasis. 2. Marked cardiomegaly with coronary artery calcification. 3. Fusiform abdominal aortic aneurysm measuring 3.5 x 3.4 x 4.7 cm AP by transverse by craniocaudal stable compared to previous 4. Stable horseshoe kidney 5. Benson catheter. 6. Sigmoid diverticulosis. No evidence of acute diverticulitis. 7. No other acute findings Head/Neck CTA 04/10/24 07:33 IMPRESSION: Bilateral internal carotid artery stenosis. Otherwise patent [id number]. IMPRESSION: 1. Severe proximal right internal carotid artery stenosis. 2. Moderate proximal left internal carotid artery stenosis. 3. Mild bilateral common carotid artery stenosis. 4. Severe stenosis at the origin of the left vertebral artery. REFERENCES: NASCET CRITERIA. The degree of stenosis in the cervical segment of the internal carotid artery is based on NASCET criteria. Normal is no stenosis. Mild is less than 50% stenosis. Moderate is 50-69% stenosis. Severe is 70% to 99% stenosis. Total occlusion is no detectable patent lumen. Head MRI 04/10/24 09:30 IMPRESSION: 1. Some of the sequences are limited by motion artifact. 2. Two tiny acute lacunar infarcts identified. One is in the LEFT parietal cortex and the other is in the posterior LEFT frontal cortex. 3. No hemorrhage. 4. Advanced cerebral and cerebellar atrophy with mild small vessel disease. Lumbar Spine MRI 04/10/24 14:21 IMPRESSION: 1. No evidence of epidural abscess. 2. Mild multilevel degenerative change detailed above. Chest X-Ray 04/16/24 13:16 Impression: Satisfactory insertion of right PICC line. Liver Ultrasound 04/17/24 23:51 IMPRESSION: 1. No acute findings. 2. 4.1 cm abdominal aortic aneurysm. Laboratory Results WBC 9.96 10^3/uL (3.29-11.43) 04/17/24 05:03 RBC 3.90 10^6/uL (3.85-5.65) 04/17/24 05:03 Hgb 11.90 g/dL (11.27-16.99) 04/17/24 05:03 Hct 36.6 % (37-53) L 04/17/24 05:03 MCV 93.8 fl (82-101) 04/17/24 05:03 MCH 30.5 pg (27-33) 04/17/24 05:03 MCHC 32.5 g/dL (30-55) 04/17/24 05:03 RDW 14.0 % (12.1-15.1) 04/17/24 05:03 Plt Count 202 10^3/cmm (157-399) 04/17/24 05:03 MPV 12.1 fL (7.4-10.4) H 04/17/24 05:03 Neut % (Auto) 71.2 % 04/17/24 05:03 Lymph % (Auto) 12.6 % 04/17/24 05:03 [place] % (Auto) 11.4 % 04/17/24 05:03 Eos % (Auto) 2.1 % 04/17/24 05:03 Baso % (Auto) 0.8 % 04/17/24 05:03 Neut # (Auto) 7.09 10^3/uL (1.8-7.7) 04/17/24 05:03 Lymph # (Auto) 1.3 10^3/uL (0.8-4.8) 04/17/24 05:03 [place] # (Auto) 1.1 10^3/uL (0.2-0.9) H 04/17/24 05:03 Eos # (Auto) 0.2 10^3/uL (0.0-0.8) 04/17/24 05:03 Baso # (Auto) 0.1 10^3/uL (0.0-0.1) 04/17/24 05:03 Nucleated RBC % (auto) 0 % 04/17/24 05:03 Nucleated RBCs # 0.0 /100WBC 04/17/24 05:03 PT 14.40 SECONDS (12.1-14.9) 04/10/24 17:47 INR 1.09 (0.8-1.2) 04/10/24 17:47 APTT 27.4 SECONDS (23.9-36.7) 04/10/24 17:47 Specimen Type Mixedvenous 04/09/24 11:25 Sample Site Radial, left 04/09/24 11:25 ABG pH 7.46 (7.35-7.45) H 04/09/24 11:25 ABG pCO2 22.1 mmHg (35-45) L 04/09/24 11:25 ABG pO2 46.5 mmHg (80.0-100.0) L 04/09/24 11:25 ABG PO2/FiO2 Ratio 221 04/09/24 11:25 ABG HCO3 15.7 mmol/L (22-26) L 04/09/24 11:25 ABG O2 Saturation 86.0 04/09/24 11:25 ABG Base Excess -6.0 mmol/L (-2.0-2.0) L 04/09/24 11:25 Orion Test Pos 04/09/24 11:25 A-a O2 Gradient 9.5 mmHg (5-10) 04/09/24 11:25 Hematocrit 42.0 % (42-52) 04/09/24 11:25 Hgb O2 Saturation 84.6 % (95-100) L 04/09/24 11:25 Carboxyhemoglobin 1.5 %THgb (0.4-20.1) 04/09/24 11:25 Methemoglobin 0.2 % (0.4-1.5) L 04/09/24 11:25 Total Hemoglobin 13.7 g/dL (14-18) L 04/09/24 11:25 Sodium 140.0 mmol/L (131-143) 04/09/24 11:25 Potassium 3.7 mmol/L (3.5-5.0) 04/09/24 11:25 Glucose 176.0 mg/dL (70-115) H 04/09/24 11:25 Ionized Calcium 1.2 mmol/L (1.1-1.4) 04/09/24 11:25 O2 Delivery Device Room air 04/09/24 11:25 FiO2 21.0 % 04/09/24 11:25 Rn Circulating ID Amh 04/09/24 11:25 Sodium 129 mmol/L (136-145) L 04/17/24 06:45 Potassium 4.1 mmol/L (3.5-5.1) 04/17/24 06:45 Chloride 96 mmol/L (98-107) L 04/17/24 06:45 Carbon Dioxide 23 mmol/L (22-29) 04/17/24 06:45 Anion Gap 14.1 (5-19) 04/17/24 06:45 BUN 13 mg/dL (8-23) 04/17/24 06:45 Creatinine 0.8 mg/dL (0.7-1.2) 04/17/24 06:45 GFR Calculation Not Reportable 04/17/24 06:45 Glucose 175 mg/dL (65-115) H 04/17/24 06:45 POC Glucose 192 mg/dL (70-110) H 04/17/24 10:23 Estimat Average Glucose 197 04/09/24 10:58 Hemoglobin A1c 8.5 % (4.0-6.0) H 04/09/24 10:58 Calculated Osmolality 272 mOsm/kg (285-295) L 04/17/24 06:45 Lactic Acid 2.3 mmol/L (0.5-2.2) H 04/09/24 10:58 Lactic Acid (Sepsis) 1.2 mmol/L (0.5-2.2) 04/09/24 14:40 Calcium 8.2 mg/dL (8.5-10.5) L 04/17/24 06:45 Phosphorus 2.5 mg/dL (2.5-4.5) 04/11/24 05:01 Magnesium 2.3 mg/dL (1.7-2.3) 04/12/24 05:00 Total Bilirubin 0.8 mg/dL (0.15-1.2) 04/17/24 06:45 AST 91 U/L (0-40) H 04/17/24 06:45 ALT 62 U/L (0-41) H 04/17/24 06:45 Alkaline Phosphatase 337 U/L (40-130) H 04/17/24 06:45 Troponin T Baseline 23 ng/L (0-15) H 04/09/24 10:58 Troponin T 120 Minute 23.50 ng/L (0-15) H 04/09/24 13:27 Delta Troponin T 0.50 ABS# (0-10) 04/09/24 13:27 Troponin T Hi Sens 6Hr 21.01 ng/L (0-15) H 04/09/24 16:58 Troponin T Hi Sens 6Hr Delta -1.99 ng/L (0-12) L 04/09/24 16:58 C-Reactive Protein 140.4 mg/L (0.0-4.9) H 04/10/24 02:59 NT-Pro-B Natriuret Pep 26571 pg/mL (0-450) H 04/09/24 16:58 Total Protein 7.1 g/dL (6.6-8.7) 04/17/24 06:45 Albumin 2.6 g/dL (3.5-5.2) L 04/17/24 06:45 Globulin 4.5 g/dL (1.3-4.6) 04/17/24 06:45 Procalcitonin 3.10 ng/mL (0-0.5) H 04/10/24 02:59 Urine Color Yellow (Yellow) 04/09/24 13:14 Urine Appearance Clear (CLEAR) 04/09/24 13:14 Urine pH 5.5 (5-7) 04/09/24 13:14 Ur Specific Mcdavid 1.029 (1.005-1.030) 04/09/24 13:14 Urine Protein 1+ (Negative) A 04/09/24 13:14 Urine Glucose (UA) 3+ (Normal) H 04/09/24 13:14 Urine Ketones 2+ (Negative) H 04/09/24 13:14 Urine Blood 2+ (Negative) A 04/09/24 13:14 Urine Nitrate Negative (Negative) 04/09/24 13:14 Urine Bilirubin Negative (Negative) 04/09/24 13:14 Urine Urobilinogen 1.0 mg/dL (Negative) 04/09/24 13:14 Ur Leukocyte Esterase Negative (Negative) 04/09/24 13:14 Urine RBC 3-5 /hpf (0-2) 04/09/24 13:14 Urine WBC 0-5 /hpf (0-5) 04/09/24 13:14 Ur Squamous Epith Cells 0-5 /hpf (0-5) 04/09/24 13:14 Amorphous Sediment Not Reportable 04/09/24 13:14 Urine Bacteria None seen /hpf (NONE) 04/09/24 13:14 Hyaline Casts 0-4 /lpf H 04/09/24 13:14 Vancomycin Trough 16.9 ug/mL (10-15) H 04/12/24 09:47 Adenovirus (PCR) Not detected (NOT DETECT) 04/09/24 17:00 C. pneumoniae DNA (PCR) Not detected (NOT DETECT) 04/09/24 17:00 Coronavirus (PCR) Negative (Negative) 04/09/24 11:30 Coronavirus 229E (PCR) Not detected (NOT DETECT) 04/09/24 17:00 Hepatitis A IgM Ab Non-reactive (Nonreactive) 04/17/24 06:45 Hep Bs Antigen Non-reactive (Nonreactive) 04/17/24 06:45 Hep Bs Antibody Cancelled 04/17/24 05:03 Hep B Core Total Ab Cancelled 04/17/24 05:03 Hep B Core IgM Ab Non-reactive (Nonreactive) 04/17/24 06:45 Hepatitis C Antibody Non-reactive (Nonreactive) 04/17/24 06:45 Human Metapneumovir PCR Not detected (NOT DETECT) 04/09/24 17:00 Influenza A (H1) PCR Not detected (NOT DETECT) 04/09/24 17:00 Influenza A (PCR) Negative (Negative) 04/09/24 11:30 Influ A (H1/09) PCR Not detected (NOT DETECT) 04/09/24 17:00 Influenza A (H3) PCR Not detected (NOT DETECT) 04/09/24 17:00 Influenza Type A (PCR) Not detected (NOT DETECT) 04/09/24 17:00 Influenza Type B (PCR) Not detected (NOT DETECT) 04/09/24 17:00 M. pneumoniae (PCR) Not detected (NOT DETECT) 04/09/24 17:00 Parainfluenza 1 (PCR) Not detected (NOT DETECT) 04/09/24 17:00 Parainfluenza 2 (PCR) Not detected (NOT DETECT) 04/09/24 17:00 Parainfluenza 3 (PCR) Not detected (NOT DETECT) 04/09/24 17:00 Parainfluenza 4 (PCR) Not detected (NOT DETECT) 04/09/24 17:00 RSV (PCR) Negative (Negative) 04/09/24 11:30 RSV Type A (PCR) Not detected (NOT DETECT) 04/09/24 17:00 RSV Type B (PCR) Not detected (NOT DETECT) 04/09/24 17:00 Entero/Rhino (PCR) Not detected (NOT DETECT) 04/09/24 17:00 SARS-CoV-2 (PCR) Not detected (NOT DETECT) 04/09/24 17:00 SARS-CoV-2 Ag (Rapid) negative (Negative) 04/16/24 17:37 Vitals Last Vital Signs Temp 97.9 F 04/17/24 07:33 Pulse 67 04/17/24 10:34 Resp 18 04/17/24 10:34 BP 126/84 04/17/24 07:33 Pulse Ox 94 04/17/24 10:34 O2 Del Method Room Air 04/17/24 10:34 O2 Flow Rate 6 04/13/24 12:38 Discharge Plan Discharge Patient Disposition: Xfer SNF Condition: Stable Prescriptions: New metoprolol tartrate 25 mg Tablet 25 mg PO BID@0900,2100 15 Days Qty: 30 0RF Continued aspirin [Adult Low Dose Aspirin] 81 mg tablet,delayed release (DR/EC) 81 mg PO QAM magnesium oxide 400 mg (241.3 mg magnesium) tablet 400 mg PO DAILY pantoprazole 40 mg tablet,delayed release (DR/EC) 40 mg PO DAILY atorvastatin 80 mg tablet 40 mg PO QPM Eliquis 5 mg tablet 5 mg PO BID Qty: 180 3RF sennosides [senna] 8.6 mg Tablet 17.2 mg PO BID 30 Days Qty: 120 0RF allopurinol 100 mg Tablet 100 mg PO DAILY 30 Days Qty: 30 0RF cholecalciferol (vitamin D3) 50 mcg (2,000 unit) Tablet 50 mcg PO DAILY Qty: 30 0RF acetaminophen 500 mg Tablet 1,000 mg PO Q6H PRN (Reason: Pain) multivitamin [One Daily Multivitamin] Tablet 1 tab PO DAILY sertraline 100 mg Tablet 150 mg PO QAM melatonin 3 mg Tablet 3 - 6 mg PO BEDTIME metformin 500 mg Tablet Extended Release 24hr 1,000 mg PO BID empagliflozin 25 mg Tablet 25 mg PO DAILY ammonium lactate 12 % Lotion 1 applic TOPICAL BID PRN (Reason: Dry Skin) clotrimazole 1 % Cream 1 applic TOPICAL BID prazosin 2 mg Capsule 2 mg PO QPM meclizine 25 mg Tablet,Chewable 25 mg PO TID PRN (Reason: Vertigo) potassium chloride 20 mEq Tablet Extended Release See Rx Instructions .ROUTE .COMPLEX Rx Instructions: take one half tablet by mouth twice weekly sitagliptin 100 mg Tablet 100 mg PO DAILY omega 3-tsu-rnr-fish oil [Fish Oil] 1,000 (120-180) mg Capsule 2 cap PO TID tamsulosin [Flomax] 0.4 mg capsule See Rx Instructions .ROUTE .COMPLEX Rx Instructions: take 0.4 mg by mouth every evening approximately 30 minutes after the same meal each day Discontinued furosemide 20 mg tablet 20 mg PO QPM amlodipine 10 mg Tablet 10 mg PO DAILY fluoride (sodium) [Sodium Fluoride 5000 Dry Mouth] 1.1 % Paste 1 applic DENTAL DAILY apple cider vinegar 300 mg Tablet 300 mg PO DAILY carboxymethylcellulose-glycern 1-0.9 % Drops,Gel 1 drp OPHTHALMIC (EYE) QID PRN (Reason: Dry Eyes) Discharge Orders: Discharge Order (Routine); Ordered 04/17/24 Ordered By: Alexa Mcdowell Referrals: [facility] [Provider Group] - 05/08/24 10:[address] [facility] [Outside] Kaila Mohr MD [Primary Care Provider] - Discharge Diet: Cardiac Discharge Activity: Increase activity as tolerated Patient Instructions: Altered Mental Status (ED), Opioid Safety, GI Post Anesthesia Care Discharge Attestations Time Spent in Discharge Care*: less than 30 min Status at Discharge: Cognitive status at discharge: cognitively intact, Behavioral status at discharge: cooperative, Quality Metrics Clinical Quality Measures [ No reported AMI, CVA or VTE this stay] Coding Level of Care Code Acute Code for Chg Fwd Diagnoses Other endocarditis, unspecified chronicity I38 Endocarditis type: other Chronicity: unspecified History of aortic valve replacement Z95.2 Other persistent atrial fibrillation I48.19 Atrial fibrillation type: other persistent CVA (cerebral vascular accident) I63.9 Time Spent (min) 25
[2024-04-17 13:45] LABS: Gentamicin Trough 0.5 ug/mL (0.0-8.0)
--- NOTE | 2024-04-17 23:51 | USR_ITS ---
PROCEDURE INFORMATION: Exam: US Abdomen; Limited Exam date and time: 04/17/2024 12:55 AM Age: 78 years old Clinical indication: Abnormal findings; Abnormal lab test; Elevated liver enzymes; Additional info: Transminitis, increasing liver enzymes- assess for biliary obstruction TECHNIQUE: Imaging protocol: Real time ultrasound of the abdomen with image documentation. Limited exam focused on the region of clinical interest. COMPARISON: US abdomen limited [id number] 10/03/2019 6:45 AM FINDINGS: Liver: The liver is normal. The main portal vein is patent. Gallbladder: Cholecystectomy. Biliary ducts: The common duct is normal. Pancreas: The pancreas is normal. Right kidney: The right kidney is normal. Intraperitoneal space: There is no ascites. Aorta: There is a 4.0 x 4.1 cm infrarenal abdominal aortic aneurysm. Hepatic veins: The main hepatic vein is pulsatile and bidirectional. US/US liver [id number] IMPRESSION: 1. No acute findings. 2. 4.1 cm abdominal aortic aneurysm.
== END 2024-04-17 14:10 | disposition skilled nursing facility (03) | DRG 871 ==
LOC: ER 15:25 → ICU 15:55 → MEDSURG 04-11 07:46
PROVIDERS: Internal Medicine; Student in an Organized Health Care Education/Training Program; Admitting Provider Internal Medicine; Emergency Provider Emergency Medicine; PCP Family Medicine; Visit Provider Internal Medicine
PROC: B24BZZ4 Ultrasonography of Heart with Aorta, Transesophageal (ICD-10-PCS; CPT 93312; principal; 2024-04-13 11:30)
DX: A41.9 Sepsis, unspecified organism (principal); G93.41 Metabolic encephalopathy; I33.9 Acute and subacute endocarditis, unspecified; I63.81 Other cerebral infarction due to occlusion or stenosis of small artery; I48.19 Other persistent atrial fibrillation; E87.20 Acidosis, unspecified; J44.9 Chronic obstructive pulmonary disease, unspecified; E11.51 Type 2 diabetes mellitus with diabetic peripheral angiopathy without gangrene; E11.65 Type 2 diabetes mellitus with hyperglycemia; I10 Essential (primary) hypertension; I25.10 Atherosclerotic heart disease of native coronary artery without angina pectoris; F10.20 Alcohol dependence, uncomplicated; M21.379 Foot drop, unspecified foot; M48.062 Spinal stenosis, lumbar region with neurogenic claudication; R74.01 Elevation of levels of liver transaminase levels; B95.4 Other streptococcus as the cause of diseases classified elsewhere; I65.23 Occlusion and stenosis of bilateral carotid arteries; R29.810 Facial weakness; E78.5 Hyperlipidemia, unspecified; I71.40 Abdominal aortic aneurysm, without rupture, unspecified; M10.9 Gout, unspecified; M51.17 Intervertebral disc disorders with radiculopathy, lumbosacral region; Z79.84 Long term (current) use of oral hypoglycemic drugs; Z79.82 Long term (current) use of aspirin; Z79.01 Long term (current) use of anticoagulants; Z11.52 Encounter for screening for COVID-19; Z95.3 Presence of xenogenic heart valve; Z95.1 Presence of aortocoronary bypass graft; Z87.440 Personal history of urinary (tract) infections; Z87.891 Personal history of nicotine dependence; Z82.49 Family history of ischemic heart disease and other diseases of the circulatory system; Z97.4 Presence of external hearing-aid
CPT/HCPCS: 0241U; 36415; 36416; 36573; 36592; 36600; 51702; 70450; 70496; 70498; 70551; 71045; 71260; 72158; 74177; 76705; 80048; 80051; 80053; 80074; 80170; 80202; 81001; 82330; 82805; 82962; 83036; 83605; 83735; 83880; 84100; 84145; 84484; 85025; 85610; 85730; 86140; 87040; 87077; 87086; 87150; 87186; 87205; 87426; 87486; 87581; 87633; 92507; 92523; 92526; 92610; 93005; 93306; 93312; 93320; 93325; 94640; 94664; 96365; 96372; 96375; 96376; 97110; 97116; 97161; 97167; 97530; 97535; 99285; 99291; 99292; J0131; J0696; J1580; J1630; J1815; J1940; J2020; J2060; J2185; J2270; J2470; J2704; J3370; J3372; J3411; J7030; J7613

== ENCOUNTER → 2024-05-08 09:48 | Outpatient (BNVA) | payer MEDICARE, SELFPAY | PROVIDERS: PCP Family Medicine; Visit Provider Student in an Organized Health Care Education/Training Program | DX: I38 Endocarditis, valve unspecified (principal) | CPT/HCPCS: 36415; 80053; 85025; 99205 ==

== ENCOUNTER 2024-05-25 12:56 | Observation (INO) | payer OTHER, SELFPAY ==
[2024-05-25] VITALS (9 sets, daily range): BP systolic 104–166; BP diastolic 53–77; PULSE 35–47; RESP 12–18; TEMP 36.3–36.8; O2SAT 90–98; BMI 26.3
--- NOTE | 2024-05-25 12:59 | ECG_ITS ---
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 Measurements Intervals [place] Rate: 38 P: 0 [place]: 0 QRS: 88 QRSD: 105 T: -26 QT: 521 QTc: 418 Interpretive Statements Coarse atrial fibrillation with slow ventricular response rate SEPTAL MYOCARDIAL INFARCTION , PROBABLY OLD [40+ ms Q WAVE IN V1/V2] MODERATE T-WAVE ABNORMALITY, CONSIDER INFERIOR ISCHEMIA [-0.1+ mV T-WAVE IN II/aVF] CRITICAL TEST RESULT Compared to ECG 04/09/2024 17:51:41 Myocardial infarct finding now present T-wave abnormality still present Electronically Signed On 05-25-2024 21:29:24 AIRCRAFT STRUCTURAL FITTER by Nellie Webb M.D. [email or web address]
--- NOTE | 2024-05-25 12:59 | ECG_ITS ---
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 Measurements Intervals [place] Rate: 38 P: 0 [place]: 0 QRS: 88 QRSD: 105 T: -26 QT: 521 QTc: 418 Interpretive Statements Atrial fibrillation with a slow ventricular response rate SEPTAL MYOCARDIAL INFARCTION , PROBABLY OLD [40+ ms Q WAVE IN V1/V2] MODERATE T-WAVE ABNORMALITY, CONSIDER INFERIOR ISCHEMIA [-0.1+ mV T-WAVE IN II/aVF] CRITICAL TEST RESULT Compared to ECG 04/09/2024 17:51:41 Myocardial infarct finding now present Possible ischemia now present T-wave abnormality still present Electronically Signed On 05-25-2024 21:30:57 ACCOUNTING PROFESSIONAL by Nellie Webb M.D. [email or web address]
--- NOTE | 2024-05-25 13:04 | XRR_ITS ---
PROCEDURE INFORMATION: Exam: XR Chest Exam date and time: 05/25/2024 1:26 PM Age: 78 years old Clinical indication: Other: Weakness; Prior surgery; Surgery date: 6+ months; Surgery type: Heart valve replacement, 5-way bypass TECHNIQUE: Imaging protocol: Radiologic exam of the chest. Views: 1 view. COMPARISON: CR XR chest 1V portable [id number] 04/16/2024 1:56 PM FINDINGS: Tubes, catheters and devices: There is evidence of an occlusive device lying within the left atrial appendage. Lungs: Unremarkable. No consolidation or mass. Pleural spaces: Unremarkable. No pleural effusion. No pneumothorax. Heart/Mediastinum: Mild cardiomegaly is noted. There is evidence of a prosthetic heart valve. Bones/joints: Sternal sutures are noted. XR/XR chest 1V portable [id number] IMPRESSION: No acute findings.
--- NOTE | 2024-05-25 13:11 | ED_ITS ---
HPI - Arrhythmia/Palpitations 2 General: Chief Complaint: Arrhythmia/Palpitations Stated Complaint: low heart rate Time Seen by Provider: 05/25/24 13:03 History of Present Illness: 78-year-old man with a history of type 2 diabetes, coronary artery disease, atrial fibrillation with chronic anticoagulation on Eliquis, hypertension, COPD, and is currently being treated for endocarditis/bacteremia with IV antibiotics. He is being treated at home with IV antibiotics. He was just in a skilled nursing for 5 weeks prior to being discharged home. He gone to clinic today and had been feeling lightheaded. A pulse was checked and it was in the upper 30s and lower 40s so he was sent to the emergency room. Blood pressure is normal here. He is having no chest pain. No orthopnea. No fevers. No altered mental status. No chest pain. No abdominal pain. No nausea or vomiting. Related Data Home Medications Medication Instructions Recorded Confirmed aspirin 81 mg tablet,delayed 81 mg PO QAM 04/20/21 05/25/24 release (Adult Low Dose Aspirin) atorvastatin 80 mg tablet 40 mg PO QPM 04/20/21 05/25/24 magnesium oxide 400 mg (241.3 mg 400 mg PO DAILY 04/20/21 05/25/24 magnesium) tablet pantoprazole 40 mg tablet,delayed 40 mg PO DAILY 04/20/21 05/25/24 release acetaminophen 500 mg tablet 1,000 mg PO Q6H PRN Pain 08/25/22 05/25/24 multivitamin (One Daily 1 tab PO DAILY 08/25/22 05/25/24 Multivitamin tablet) melatonin 3 mg tablet 3 - 6 mg PO BEDTIME 09/06/22 05/25/24 metformin 500 mg tablet,extended 1,000 mg PO BID 09/06/22 05/25/24 release 24hr (osmotic) sertraline 100 mg tablet 150 mg PO QAM depression 09/06/22 05/25/24 ammonium lactate 12 % lotion 1 applic topical BID PRN Dry Skin 04/09/24 05/25/24 clotrimazole 1 % topical cream 1 applic topical BID 04/09/24 05/25/24 empagliflozin 25 mg tablet 25 mg PO DAILY 04/09/24 05/25/24 (Jardiance) meclizine 25 mg chewable tablet 25 mg PO TID PRN Vertigo 04/09/24 05/25/24 omega 8-pvp-wrv-fish oil 1,000 mg 2 cap PO TID 04/09/24 05/25/24 (120 mg-180 mg) capsule (Fish Oil) potassium chloride 20 mEq See Rx Instructions .Route .COMPLEX 04/09/24 05/25/24 tablet,extended release tamsulosin 0.4 mg capsule (Flomax) See Rx Instructions .Route .COMPLEX 04/09/24 05/25/24 bisacodyl 10 mg rectal suppository 10 mg [place] DAILY PRN constipation 05/25/24 05/25/24 (Dulcolax (bisacodyl)) bisacodyl 5 mg tablet,delayed 10 mg PO DAILY PRN constipation 05/25/24 05/25/24 release (Dulcolax (bisacodyl)) cephalexin 250 mg capsule 250 mg PO DAILY 05/25/24 05/25/24 metoprolol tartrate 25 mg tablet 25 mg PO BID 05/25/24 05/25/24 sitagliptin phosphate 100 mg 100 mg PO DAILY 05/25/24 05/25/24 tablet (Januvia) Previous Rx's Medication Instructions Recorded allopurinol 100 mg tablet 100 mg PO DAILY 30 days #30 tabs 10/10/19 cholecalciferol (vitamin D3) 50 50 mcg PO DAILY #30 tabs 10/10/19 mcg (2,000 unit) tablet sennosides 8.6 mg tablet (senna) 17.2 mg (2 x 8.6 mg) PO BID 30 10/10/19 days #120 tabs apixaban 5 mg tablet (Eliquis) 5 mg PO BID #180 tabs 11/01/22 Allergies Allergy/AdvReac Type Severity Reaction Status Date / Time Penicillins Allergy Unknown Unknown Verified 05/08/24 10:09 niacin Allergy unknown Verified 05/08/24 10:09 Review of Systems 2 Narrative: Constitutional symptoms: Negative except as documented in HPI. Skin symptoms: Negative except as documented in HPI. Eye symptoms: Negative except as documented in HPI. ENMT symptoms: Negative except as documented in HPI. Respiratory symptoms: Negative except as documented in HPI. Cardiovascular symptoms: Negative except as documented in HPI. Gastrointestinal symptoms: Negative except as documented in HPI. Genitourinary symptoms: Negative except as documented in HPI. Musculoskeletal symptoms: Negative except as documented in HPI. Neurologic symptoms: Negative except as documented in HPI. Psychiatric symptoms: Negative except as documented in HPI. Endocrine symptoms: Negative except as documented in HPI. 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 Streptococcus bovis infection 4/ bottles of blood cx (09/30) positive for Strep bovis in 09/2019, treated with jail IV antibiotics Aortic stenosis Gout COPD (chronic obstructive pulmonary disease) Chronic anticoagulation Chronic alcohol dependence, continuous Chronic back pain Peripheral vascular disease Abdominal aortic aneurysm Hypertension Diabetes mellitus Atrial fibrillation Surgical History History of arthroscopy of right shoulder diagnostic at time of bacteremia 09/2019 History of aortic valve replacement bioprosthetic Status post cardiac revascularization with bypass aortocoronary anastomosis of five coronary vessels History of herniorrhaphy History of orthopedic surgery Right shoulder Hx of cholecystectomy Family History Father CAD (coronary artery disease) Social History Smoking and tobacco/nicotine status: former use of tobacco/nicotine Alcohol intake: current Alcohol intake frequency: few times a week Substance/Drug Use: never Household members: spouse Marital status: Current occupational status: retired Physical Exam 2 Narrative: EXAM NARRATIVE: General: Alert, no acute distress. Skin: Warm, dry. Head: Normocephalic, atraumatic. Neck: Supple, trachea midline. Eye: Extraocular movements are intact. Ears, nose, mouth and throat: mucosa moist. Cardiovascular: Irregular, bradycardic, Normal peripheral perfusion. Respiratory: Lungs are clear to auscultation, respirations are non-labored, breath sounds are equal, Symmetrical chest wall expansion. Gastrointestinal: Soft, Nontender, Non distended Musculoskeletal: Normal ROM, no deformity. Neurological: Alert and oriented, No focal neurological deficit observed. Psychiatric: Cooperative, appropriate mood & affect. Course 2 Vital Signs: Vital signs: Vital Signs Temperature 97.4 F L 05/25/24 12:58 Pulse Rate 38 L 05/25/24 14:30 Respiratory Rate 18 05/25/24 14:30 Blood Pressure 155/69 05/25/24 14:30 Pulse Oximetry 91 05/25/24 14:30 Oxygen Delivery Me thod Room Air 05/25/24 14:30 MDM - Arrhythmia/Palpitations Medical Decision Making Medical decision making: Differential diagnosis including but not limited to and based on the above HPI, review of systems and physical exam: Patient with bradycardia. Initial EKG shows flutter with bradycardia. This may very well be due to his metoprolol. However he would have concern for renal failure. Heart failure. Electrolyte abnormalities. Orders placed to evaluate differential diagnosis based on the above differential, HPI and physical exam EKG: Time 1259. Rate 38. Atrial flutter with profound bradycardia. Normal sinus rhythm, No ST-T changes, no ectopy, normal MS & QRS intervals, This was reviewed and interpreted by myself the ER physician at 102 Chest x-ray: No acute process. No infiltrate. No pneumothorax. This was reviewed and interpreted by myself the emergency room physician. I also reviewed the radiology report. Lab Review: Laboratory results were reviewed and interpreted by myself the emergency room physician. Lab work is unremarkable. No leukocytosis. No anemia. No renal failure. Urinalysis is negative for infection. Troponin is 21. Magnesium is 2. I reviewed the patient's medical record. Reexamination: Patient remained stable. No increased work of breathing. No altered mental status. No focal motor deficits. His heart rate is remained at 38 throughout being here. As long as he is sitting he is completely asymptomatic. Consultation: I spoke with Dr. Webb. He recommends admission to observation and holding beta-dayna for now. Consultation: I spoke with Dr. Dick who is on-call for the hospitalist service. She agrees to admission to observation to the cardiac stepdown unit. Assessment and plan: Atrial flutter Bradycardia ?Hold metoprolol and admit to the stepdown unit for observation. -I discussed the patient with the hospitalist on-call who is admitting the patient. - Discussed findings and plan with patient. Answered any questions. - All laboratory values were reviewed and interpreted personally by myself, the ER physician - All imaging was reviewed and interpreted personally by myself, the ER physician. - Evaluation and treatment of this problem were appropriate in the emergency setting Lab Data 05/25/24 13:19 05/25/24 13:19 Radiology Impressions Chest X-Ray 05/25/24 13:04 IMPRESSION: No acute findings. Laboratory Results WBC 8.57 10^3/uL (3.29-11.43) 05/25/24 13:19 RBC 4.21 10^6/uL (3.85-5.65) 05/25/24 13:19 Hgb 13.00 g/dL (11.27-16.99) 05/25/24 13:19 Hct 40.5 % (37-53) 05/25/24 13:19 MCV 96.2 fl (82-101) 05/25/24 13:19 MCH 30.9 pg (27-33) 05/25/24 13:19 MCHC 32.1 g/dL (30-55) 05/25/24 13:19 RDW 15.2 % (12.1-15.1) H 05/25/24 13:19 Plt Count 228 10^3/cmm (157-399) 05/25/24 13:19 MPV 10.9 fL (7.4-10.4) H 05/25/24 13:19 Neut % (Auto) 64.6 % 05/25/24 13:19 Lymph % (Auto) 20.0 % 05/25/24 13:19 [place] % (Auto) 9.1 % 05/25/24 13:19 Eos % (Auto) 4.6 % 05/25/24 13:19 Baso % (Auto) 1.1 % 05/25/24 13:19 Neut # (Auto) 5.55 10^3/uL (1.8-7.7) 05/25/24 13:19 Lymph # (Auto) 1.7 10^3/uL (0.8-4.8) 05/25/24 13:19 [place] # (Auto) 0.8 10^3/uL (0.2-0.9) 05/25/24 13:19 Eos # (Auto) 0.4 10^3/uL (0.0-0.8) 05/25/24 13:19 Baso # (Auto) 0.1 10^3/uL (0.0-0.1) 05/25/24 13:19 Nucleated RBC % (auto) 0 % 05/25/24 13:19 Nucleated RBCs # 0.0 /100WBC 05/25/24 13:19 Sodium 138 mmol/L (136-145) 05/25/24 13:19 Chloride 102 mmol/L (98-107) 05/25/24 13:19 Carbon Dioxide 23 mmol/L (22-29) 05/25/24 13:19 BUN 21 mg/dL (8-23) 05/25/24 13:19 Creatinine 0.9 mg/dL (0.7-1.2) 05/25/24 13:19 GFR Calculation Not Reportable 05/25/24 13:19 Calculated Osmolality 291 mOsm/kg (285-295) 05/25/24 13:19 Lactic Acid 1.5 mmol/L (0.5-2.2) 05/25/24 13:19 Calcium 9.4 mg/dL (8.5-10.5) 05/25/24 13:19 Phosphorus 3.2 mg/dL (2.5-4.5) 05/25/24 13:19 Magnesium 2.0 mg/dL (1.7-2.3) 05/25/24 13:19 Total Bilirubin 1.2 mg/dL (0.15-1.2) 05/25/24 13:19 AST 29 U/L (0-40) 05/25/24 13:19 ALT 14 U/L (0-41) 05/25/24 13:19 Troponin T Baseline 21 ng/L (0-15) H 05/25/24 13:19 Total Protein 7.7 g/dL (6.6-8.7) 05/25/24 13:19 Albumin 4.2 g/dL (3.5-5.2) 05/25/24 13:19 Globulin 3.5 g/dL (1.3-4.6) 05/25/24 13:19 TSH 1.71 uIU/mL (0.27-4.20) 05/25/24 13:19 Urine Color Yellow (Yellow) 05/25/24 14:19 Urine Appearance Clear (CLEAR) 05/25/24 14:19 Urine pH 6.0 (5-7) 05/25/24 14:19 Ur Specific [place] 1.026 (1.005-1.030) 05/25/24 14:19 Urine Protein Negative (Negative) 05/25/24 14:19 Urine Glucose (UA) 3+ (Normal) H 05/25/24 14:19 Urine Ketones Negative (Negative) 05/25/24 14:19 Urine Blood Negative (Negative) 05/25/24 14:19 Urine Nitrate Negative (Negative) 05/25/24 14:19 Urine Bilirubin Negative (Negative) 05/25/24 14:19 Urine Urobilinogen 0.2 mg/dL (Negative) 05/25/24 14:19 Ur Leukocyte Esterase Negative (Negative) 05/25/24 14:19 Urine RBC 0-2 /hpf (0-2) 05/25/24 14:19 Urine WBC 6-10 /hpf (0-5) 05/25/24 14:19 Ur Squamous Epith Cells 0-5 /hpf (0-5) 05/25/24 14:19 Amorphous Sediment Not Reportable 05/25/24 14:19 Urine Bacteria None seen /hpf (NONE) 05/25/24 14:19 Hyaline Casts 0.40 /lpf 05/25/24 14:19 All radiology interpretation(s) finalized by discharge Discharge Plan Discharge Patient Disposition: Placed in Observation Clinical Impression: Bradycardia, Atrial flutter, Lightheadedness Coding Level of Care Code ED At Risk Paraprofessional for Patrick Baez
[2024-05-25 13:31] LABS: Basophils # 0.1 10^3/uL (0.0-0.1); Basophils % 1.1 %; Eosinophils # 0.4 10^3/uL (0.0-0.8); Eosinophils % 4.6 %; Hematocrit 40.5 % (37-53); Lymphocytes # 1.7 10^3/uL (0.8-4.8); Mean Corpuscular HGB Conc 32.1 g/dL (30-55); Mean Corpuscular Hemoglobin 30.9 pg (27-33); Mean Corpuscular Volume 96.2 fl (82-101); Mean Platelet Volume 10.9 fL (7.4-10.4); Monocytes # 0.8 10^3/uL (0.2-0.9); Monocytes % 9.1 %; Neutrophils # 5.55 10^3/uL (1.8-7.7); Neutrophils % 64.6 %; Nucleated Red Blood Cells % 0 %; Platelet Count 228 10^3/cmm (157-399); Red Blood Count 4.21 10^6/uL (3.85-5.65); Red Cell Distribution Width 15.2 % (12.1-15.1); White Blood Count 8.57 10^3/uL (3.29-11.43)
[2024-05-25 13:50] LABS: Troponin(5th) Baseline 21 ng/L (0-15)
[2024-05-25 13:51] LABS: Lactic Sepsis W/Reflex 1.5 mmol/L (0.5-2.2)
[2024-05-25 14:16] LABS: Alanine Aminotransferase 14 U/L (0-41); Albumin Level 4.2 g/dL (3.5-5.2); Alkaline Phosphatase 176 U/L (40-130); Aspartate Amino Transferase 29 U/L (0-40); Blood Urea Nitrogen 21 mg/dL (8-23); Calcium 9.4 mg/dL (8.5-10.5); Carbon Dioxide 23 mmol/L (22-29); Chloride 102 mmol/L (98-107); Creatinine Clr Calc Pharmacy 79.4877; Globulin 3.5 g/dL (1.3-4.6); Glucose 132 mg/dL (65-115); Osmolality Calculated 291 mOsm/kg (285-295); Phosphorus 3.2 mg/dL (2.5-4.5); Sodium 138 mmol/L (136-145); Thyroid Stimulating Hormone 1.71 uIU/mL (0.27-4.20); Total Bilirubin 1.2 mg/dL (0.15-1.2); Total Protein 7.7 g/dL (6.6-8.7)
[2024-05-25 14:28] LABS: Bilirubin Urine Negative (Negative); Blood Urine Negative (Negative); Glucose Urine UA 3+ (Normal); Ketones Urine Negative (Negative); Leukocyte Esterase Urine Negative (Negative); Nitrate Urine Negative (Negative); Protein Urine Negative (Negative); Specific Gravity, Urine 1.026 (1.005-1.030); Urine Appearance Clear (CLEAR); Urine Color Yellow (Yellow); Urobilinogen Urine 0.2 mg/dL (Negative)
[2024-05-25 14:32] LABS: Bacteria Urine None Seen /hpf; RBC Urine 0-2 /hpf (0-2); Squamous Epithelial Cell Urine 0-5 /hpf (0-5)
[2024-05-25 14:42] LABS: Anion Gap 17.5 (5-19); Potassium 4.5 mmol/L (3.5-5.1)
[2024-05-25 14:48] LABS: Glucose Point of Care 138 mg/dL (70-110)
--- NOTE | 2024-05-25 15:01 | P.HP_ITS ---
Providers/Chief Complaint 2 Admitting Physician: Carol Dick MD Primary Care Provider: Kaila Mohr MD Chief Complaint: low heart rate History of Present Illness Azam Mccabe is a 78 year old male past medical history of oliguric aneurysm, aortic stenosis, atrial fibrillation, on chronic anticoagulation, COPD, diabetes mellitus, hypertension, peripheral vascular disease, recent CABG in July 2022 presented to the hospital today for complaint of bradycardia. He states that he has been lightheaded last few days and when his nurse came today and checked his pulse it was 38. He was brought to the emergency room. Other than lightheadedness he has no symptoms. Denies shortness of breath chest pain abdominal pain nausea vomiting diarrhea or any other symptom at this time. He has not passed out and has had no falls recently. Patient is on Eliquis for atrial fibrillation. In the past 2022 he has had ESBL UTI and was placed on ertapenem for 14 days and discharged with a PICC line to home. In the past she has also been on warfarin. Previously he has had an echocardiogram which showed echogenic mobile structure measuring 10 x 8.3 mm noted attached to anterior mitral valve leaflet. Cardiology was consulted and this was thought to be a calcified chordae. Previously he is also had an event monitor. He did have a history of aortic valve stenosis and in October 2022 he had replacement of aortic valve with bioprosthetic valve and CABG. 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 Medications/Allergies Home Medications Medication Instructions Recorded Confirmed Last Taken Type allopurinol 100 mg tablet 100 mg PO DAILY 30 days #30 tabs 10/10/19 05/25/24 05/25/24 Rx cholecalciferol (vitamin D3) 50 50 mcg PO DAILY #30 tabs 10/10/19 05/25/24 05/25/24 Rx mcg (2,000 unit) tablet sennosides 8.6 mg tablet (senna) 17.2 mg (2 x 8.6 mg) PO BID 30 10/10/19 05/25/24 05/25/24 Rx days #120 tabs aspirin 81 mg tablet,delayed 81 mg PO QAM 04/20/21 05/25/24 05/25/24 History release (Adult Low Dose Aspirin) atorvastatin 80 mg tablet 40 mg PO QPM 04/20/21 05/25/24 05/24/24 History magnesium oxide 400 mg (241.3 mg 400 mg PO DAILY 04/20/21 05/25/24 05/25/24 History magnesium) tablet pantoprazole 40 mg tablet,delayed 40 mg PO DAILY 04/20/21 05/25/24 05/25/24 History release acetaminophen 500 mg tablet 1,000 mg PO Q6H PRN Pain 08/25/22 05/25/24 Unknown History multivitamin (One Daily 1 tab PO DAILY 08/25/22 05/25/24 05/25/24 History Multivitamin tablet) melatonin 3 mg tablet 3 - 6 mg PO BEDTIME 09/06/22 05/25/24 05/25/24 History metformin 500 mg tablet,extended 1,000 mg PO BID 09/06/22 05/25/24 05/25/24 History release 24hr (osmotic) sertraline 100 mg tablet 150 mg PO QAM depression 09/06/22 05/25/24 05/25/24 History apixaban 5 mg tablet (Eliquis) 5 mg PO BID #180 tabs 11/01/22 05/25/24 05/25/24 Rx ammonium lactate 12 % lotion 1 applic topical BID PRN Dry Skin 04/09/24 05/25/24 Unknown History clotrimazole 1 % topical cream 1 applic topical BID 04/09/24 05/25/24 Unknown History empagliflozin 25 mg tablet 25 mg PO DAILY 04/09/24 05/25/24 05/25/24 History (Jardiance) meclizine 25 mg chewable tablet 25 mg PO TID PRN Vertigo 04/09/24 05/25/24 05/25/24 History omega 2-gfl-mxj-fish oil 1,000 mg 2 cap PO TID 04/09/24 05/25/24 05/25/24 History (120 mg-180 mg) capsule (Fish Oil) potassium chloride 20 mEq See Rx Instructions .Route .COMPLEX 04/09/24 05/25/24 Unknown History tablet,extended release tamsulosin 0.4 mg capsule (Flomax) See Rx Instructions .Route .COMPLEX 04/09/24 05/25/24 05/24/24 History bisacodyl 10 mg rectal suppository 10 mg [place] DAILY PRN constipation 05/25/24 05/25/24 Unknown History (Dulcolax (bisacodyl)) bisacodyl 5 mg tablet,delayed 10 mg PO DAILY PRN constipation 05/25/24 05/25/24 Unknown History release (Dulcolax (bisacodyl)) cephalexin 250 mg capsule 250 mg PO DAILY 05/25/24 05/25/24 05/25/24 History metoprolol tartrate 25 mg tablet 25 mg PO BID 05/25/24 05/25/24 05/25/24 History sitagliptin phosphate 100 mg 100 mg PO DAILY 05/25/24 05/25/24 05/25/24 History tablet (Januvia) Allergies Allergy/AdvReac Type Severity Reaction Status Date / Time Penicillins Allergy Unknown Unknown Verified 05/08/24 10:09 niacin Allergy unknown Verified 05/08/24 10:09 PFSH Acute 2 PFSH: Medical History Endocarditis Atherosclerosis of coronary artery Peripheral neuropathy Footdrop Lumbar stenosis with neurogenic 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 Streptococcus bovis infection 4/ bottles of blood cx (09/30) positive for Strep bovis in 09/2019, treated with ocean transportation intermediary IV antibiotics Aortic stenosis Gout COPD (chronic obstructive pulmonary disease) Chronic anticoagulation Chronic alcohol dependence, continuous Chronic back pain Peripheral vascular disease Abdominal aortic aneurysm Hypertension Diabetes mellitus Atrial fibrillation Surgical History History of arthroscopy of right shoulder diagnostic at time of bacteremia 09/2019 History of aortic valve replacement bioprosthetic Status post cardiac revascularization with bypass aortocoronary anastomosis of five coronary vessels History of herniorrhaphy History of orthopedic surgery Right shoulder Hx of cholecystectomy Family History Father CAD (coronary artery disease) Social History Smoking and tobacco/nicotine status: former use of tobacco/nicotine Alcohol intake: current Alcohol intake frequency: few times a week Substance/Drug Use: never Household members: spouse Marital status: Current occupational status: retired Vitals/I&O/Wt Last Vital Signs Temp 97.4 F L 05/25/24 12:58 Pulse 40 L 05/25/24 14:58 Resp 18 05/25/24 14:58 BP 155/69 05/25/24 14:58 Pulse Ox 95 05/25/24 14:58 O2 Del Method Room Air 05/25/24 14:58 Weight last 48 hrs Weight 87.997 kg Physical Exam 2 Narrative: General: Alert oriented x 3. Appears comfortable no complaints at this time. On room air. HEENT: Normocephalic, atraumatic, EOMI, Cardio: Regular rate rhythm, normal S1-S2, no gross murmurs present. Respiratory: Clear to auscultation bilaterally no gross wheezes or rhonchi appreciated. GI: Abdomen soft, nontender, nondistended, bowel sounds + Extremities: No edema noted. Neuro: ANO x 3, able to move all 4 extremities, nonfocal. ? Urinary Catheter Management: Benson: Cath Placed During This Visit: yes Reason for Continuing Indwelling Catheter: Accurate Measurement of Urinary Output in Critically Ill Patients Urinary Catheter Date of Insertion: 04/09/24 Data 05/25/24 13:19 05/25/24 13:19 Micro: Microbiology 05/25/24 13:21 Blood Culture - Preliminary Blood SPECIMEN COLLECTED 05/25/24 13:19 Blood Culture - Preliminary Blood SPECIMEN COLLECTED A&P Assessment and plan (1) Atrial fibrillation with slow ventricular response: (2) Bradycardia: Plan # Bradycardia, atrial flutter with slow ventricular response - Hold home beta-dayna ? Order glucagon 1 mg IV x 1 ? Continue to monitor on telemetry ? Patient may require atropine versus dopamine drip if worsening bradycardia and symptomatic. ? Blood pressure is stable at this time. ? Check limited echo ? If heart rate does not improve in next 24 to 48 hours may consider cardiology consultation ? Continue aspirin Eliquis atorvastatin, Protonix, sertraline. ? Continue lidocaine insulin low-dose intensity ? Hold Jardiance metformin, Januvia at this time. ? Check labs in a.m. keep magnesium above 2 potassium above 4 ? Check TSH ? Troponins obtained. Await 6-hour troponin however at 2 hours delta is -2.9. Potassium 4.5. ? If patient remains bradycardic may require event monitor at discharge ? Case was discussed with on-call humidifier maintenance worker by the ER physician who recommended to hold beta-dayna and watch patient on telemetry at this time. May consult cardiology if the need arises. Other medical problems as follows below: #Alcohol abuse #Atrial fibrillation. #History of CABG and aortic valve replacement 2022. #Coronary artery disease, triple-vessel status post CABG #History of mitral valve endocarditis, history of ESBL UTI, history of bacteremia #Hypertension #Hyperlipidemia #GERD #Chronic anticoagulation with Eliquis Attestations 2 Medical Necessity Statement*: Observation status for 48 hours secondary to bradycardia, atrial flutter with slow ventricular response. Requires inpatient telemetry monitoring at this time. Diagnoses Atrial fibrillation with slow ventricular response I48.91 Bradycardia R00.1
--- NOTE | 2024-05-25 15:04 | ECG_ITS ---
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 Measurements Intervals Robinson Rate: 36 P: 0 TX: 0 QRS: 93 QRSD: 89 T: 35 QT: 553 QTc: 433 Interpretive Statements ATRIAL FLUTTER/TACHYCARDIA WITH SLOW VENTRICULAR RESPONSE BORDERLINE RIGHT AXIS DEVIATION [QRS AXIS > 90] PROLONGED QT INTERVAL CRITICAL TEST RESULT Compared to ECG 05/25/2024 12:59:30 Prolonged QT interval now present Sinus rhythm no longer present Myocardial infarct finding no longer present T-wave abnormality no longer present Possible ischemia no longer present Electronically Signed On 05-25-2024 21:48:46 PLANT CULTURE MANAGER by Nellie Webb M.D. [email or web address]
--- NOTE | 2024-05-25 16:00 | USCV_ITS ---
Azam Mccabe Age: 78 Gender: M : 1945 Exam Date: 05/25/2024 16:24 Ordering Phys: Carol Dick MD Technologist: Jaylen Woo [place] [facility] [place]: bradycardia BP: 160 / 77 HR: Rhythm: Sinus Technical Quality: Adequate MEASUREMENTS (Male / Female) Normal Values 2D ECHO LV Diastolic Diameter PLAX 4.0 cm 4.2 - 5.9 / 3.9 - 5.3 cm IVS Diastolic Thickness 1.5 cm 0.6 - 1.0 / 0.6 - 0.9 cm IVS Systolic Thickness 1.8 cm LVPW Diastolic Thickness 1.4 cm 0.6 - 1.0 / 0.6 - 0.9 cm LVPW Systolic Thickness 1.5 cm LVOT Diameter 2.1 cm LV Ejection Fraction 2D Teich 78.5 % LV Ejection Fraction MOD 4C 57.5 % LV Ejection Fraction MOD 2C 57.6 % LV Ejection Fraction 2C AL 57.8 % LA Diameter 4.6 cm RA Systolic Volume 4C AL 33.3 ml RA Systolic Volume 4C MOD 34.7 ml LA Sys Volume AL 87.0 cm cubed LA Sys Volume Index AL 40.9 cm cubed/m squared Aorta at Sinotubular Diameter 2.7 cm IVC Diameter 1.8 cm M-MODE LA Ao Ratio MM 1.3 AV Cusp Separation MM 1.9 cm FINDINGS Left Ventricle Moderate left ventricular hypertrophy. LV ejection fraction of 57.5%.no regional wall motion abnormalities. Right Ventricle Possibly normal RV size ejection fraction. Right Atrium Mildly dilated right atrium Left Atrium Severely dilated left atrium Mitral Valve Thickened mitral valve. Moderate mitral annular calcification. Aortic Valve ? Bioprosthetic valve the aortic position appears to be well- seated. Tricuspid Valve No gross abnormalities noted Pulmonic Valve Not visualized well Pericardium No pericardial effusion. Aorta Normal aortic annulus size. IVC Normal inferior vena cava. CONCLUSIONS Moderate left ventricular hypertrophy. LV ejection fraction of 57.5%.no regional wall motion abnormalities. Severely dilated left atrium. Mildly dilated right atrium. Possibly normal RV size ejection fraction. Thickened mitral valve. Moderate mitral annular calcification. Bioprosthetic valve the aortic position appears to be well- seated. There is no pericardial effusion. Compared to the study from 04/13/2024 , there may not be a significant change in the 2D findings Dr Nellie Webb MD FACC (Electronically Signed) Final Date: 25 May 2024 20:59 S
[2024-05-25] MEDS: glucagon 1 mg/mL KIT 1 mL IVP (17:07)
[2024-05-25] MEDS: apixaban 5 mg Tablet PO (17:07)
[2024-05-25] MEDS: sennosides 8.6 mg Tablet 17.2 MG PO (17:07)
[2024-05-25 17:16] LABS: Thyroid Stimulating Hormone 1.17 uIU/mL (0.27-4.20)
[2024-05-25 17:36] LABS: Glucose Point of Care 189 mg/dL (70-110)
[2024-05-25] MEDS: insulin lispro 100 unit/1 mL SUBCUT (18:28)
--- NOTE | 2024-05-25 19:04 | ECG_ITS ---
[facility] Test Date: 2024-05-25 Pat Name: Azam Mccabe Department: Room: 112 Gender: Male Toddler Teacher: : 1945 Requested By: Cha Germain Order Number: [id number] La MD: Nellie Webb M.D. Measurements Intervals Crane Rate: 43 P: 0 NC: 0 QRS: 72 QRSD: 94 T: 45 QT: 482 QTc: 411 Interpretive Statements Atrial fibrillation with a slow ventricular response rate INCOMPLETE RIGHT BUNDLE BRANCH BLOCK [90+ ms QRS DURATION, TERMINAL R IN V1/V2, 40+ ms S IN I/aVL/V4/V5/V6] NONSPECIFIC ST & T-WAVE ABNORMALITY CRITICAL TEST RESULT Compared to ECG 05/25/2024 15:19:07 Incomplete right bundle-branch block now present T-wave abnormality now present Atrial flutter no longer present Prolonged QT interval no longer present Electronically Signed On 05-25-2024 21:49:06 GREEN BUILDING ENGINEER by Nellie Webb M.D. [email or web address]
[2024-05-25 19:51] LABS: Troponin 5 6HR 19.75 ng/L (0-15)
[2024-05-25 19:55] LABS: Troponin 5 6HR Delta -1.25 ng/L (0-12)
[2024-05-25] MEDS: atorvastatin 40 mg Tablet PO (20:26)
[2024-05-25 20:37] LABS: Glucose Point of Care 105 mg/dL (70-110)
[2024-05-26] VITALS (8 sets, daily range): BP systolic 123–183; BP diastolic 66–108; PULSE 38–79; RESP 16–28; TEMP 36.5–36.9; O2SAT 90–98; BMI 26.3
[2024-05-26 05:18] LABS: Basophils # 0.1 10^3/uL (0.0-0.1); Basophils % 1.3 %; Eosinophils # 0.5 10^3/uL (0.0-0.8); Hematocrit 39.4 % (37-53); Lymphocytes # 1.6 10^3/uL (0.8-4.8); Lymphocytes % 20.7 %; Mean Corpuscular HGB Conc 31.5 g/dL (30-55); Mean Corpuscular Hemoglobin 30.7 pg (27-33); Mean Corpuscular Volume 97.5 fl (82-101); Mean Platelet Volume 11.3 fL (7.4-10.4); Monocytes # 0.9 10^3/uL (0.2-0.9); Monocytes % 11.6 %; Neutrophils # 4.51 10^3/uL (1.8-7.7); Neutrophils % 59.9 %; Nucleated Red Blood Cells % 0 %; Platelet Count 210 10^3/cmm (157-399); Red Blood Count 4.04 10^6/uL (3.85-5.65); Red Cell Distribution Width 15.2 % (12.1-15.1); White Blood Count 7.53 10^3/uL (3.29-11.43)
[2024-05-26 05:42] LABS: Alanine Aminotransferase 14 U/L (0-41); Albumin Level 3.5 g/dL (3.5-5.2); Alkaline Phosphatase 163 U/L (40-130); Aspartate Amino Transferase 29 U/L (0-40); Blood Urea Nitrogen 18 mg/dL (8-23); Calcium 8.8 mg/dL (8.5-10.5); Carbon Dioxide 22 mmol/L (22-29); Chloride 105 mmol/L (98-107); Creatinine Clr Calc Pharmacy 89.4237; Globulin 3.3 g/dL (1.3-4.6); Glucose 146 mg/dL (65-115); Osmolality Calculated 293 mOsm/kg (285-295); Sodium 139 mmol/L (136-145); Total Bilirubin 1.2 mg/dL (0.15-1.2); Total Protein 6.8 g/dL (6.6-8.7)
[2024-05-26 05:43] LABS: Anion Gap 16.2 (5-19); Potassium 4.2 mmol/L (3.5-5.1)
[2024-05-26] MEDS: sertraline 100 mg Tablet 150 MG PO (05:47)
[2024-05-26] MEDS: aspirin 81 mg EC Tablet PO (05:47)
[2024-05-26 06:34] LABS: Glucose Point of Care 169 mg/dL (70-110)
[2024-05-26] MEDS: insulin lispro 100 unit/1 mL SUBCUT ×3 (09:33→20:58)
[2024-05-26] MEDS: sennosides 8.6 mg Tablet 17.2 MG PO ×2 (09:34→17:40)
[2024-05-26] MEDS: apixaban 5 mg Tablet PO ×2 (09:34→17:40)
[2024-05-26] MEDS: pantoprazole DR 40 mg Tablet PO (09:34)
--- NOTE | 2024-05-26 09:43 | PC.CHAP ---
Pastoral Care Encounter/Spiritual Assessment Type of Contact [] Declined assignment desk editor visit [] Patient/Family/Request visit [] Outpatient visit [] Follow-up visit [] Physician referral [] Code/Alert [x] Routine visit [] Staff referral [] Actively dying [] Patient sleeping [] Family support [] [] Out of room [] Palliative care [] [] Receiving care in room [] Pre-surgical visit [] Trauma [] Long length of stay [] ICU visit [] Other: Relational/Emotional Strength []x Patient feels connected with others/family/visitors/staff [] Distress [] Loneliness/isolation [] Abandonment Spirituality of Patient [x] Person of Christina [] Attends Gnosticism of their Christina [x] Believes in Prayer [] Reads Bible or Advent materials [] There are Spiritual issues to be addressed Second Ride Fare Collector Interventions [x] Prayer [x] Active listening []x Non-anxious presence [] Spiritual/emotional support [] Crisis/trauma care [] Spiritual counseling [] Bereavement support [] Provided bereavement packet [] Provided Bible/devotional materials [] Provided toy/stuffed animal, coloring book to patient or family member [] Provided Communion [] Anointing/Mohawk [] Salvation [] Completed spiritual assessment [] Other: Impact on Illness or Injury [] Angry [] Fearful [] Anxious [] Often cries [] Exhaustion [] Unable to work [] Unable to attend jewish [] Unable to walk/stand [] Unable to read [] Unable to drive [] Unable to eat/drink [] Unable to sleep [] Unable to be with family [] Patient intubated [] Other: Summary Prayer Time spent with patient 20 Min
[2024-05-26 11:21] LABS: Glucose Point of Care 172 mg/dL (70-110)
--- NOTE | 2024-05-26 11:32 | P.CONIM_ITS ---
Providers/Reason For Consult 2 Consulting Physician/Specialty*: DOMINICK Webb MD/cardiology Reason for Consult*: Patient with bradycardia/atrial flutter Requesting Physician: Dr. Dick Attending Physician: Carol Dick MD Primary Care Provider: Kaila Mohr MD History of Present Illness History of Present Illness Azam Mccabe is a 78 year old male The patient is a 78-year-old male presenting with bradycardia and dizziness. The patient's primary reason for visit is due to a low pulse detected by a healthcare provider during a home visit. The patient reported feeling generally well but acknowledged experiencing lightheadedness, which he describes as a long-standing issue. Over the past six weeks, he experienced multiple falls, which the patient attributes partially to wearing slick socks rather than dizziness. The falls did not involve loss of consciousness. The patient denies any recent or atypical chest pain and asserts a history of open heart surgery about a year and a half ago, where he underwent valve replacement and five-bypass grafting in [place]. He apparently had multiple episodes of sepsis. Most recently March, he was admitted to the hospital with sepsis. A MARINA at that time revealed no evidence of any endocarditis. However this patient had blood culture growing the same bacteria of streptococcal bovis. 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 Apparently this is the third time that he is being treated for the same. He had the open heart surgery with valve replacement in 2022. In 2019, he had endocarditis. In October 2022 also he was treated for endocarditis in [place]. There is any chest pain or palpitations. The patient also has drop foot, contributing to his balance difficulties. Smoking cessation occurred 25 years ago, and he admits to occasional beer consumption. He might have smoked a pack a day for 40 years or so. No other substance abuse. Patient known to have hypertension, diabetes, dyslipidemia, peripheral artery disease, chronic kidney disease and atrial fibrillation. He is on long-term oral anticoagulation. He has no bleeding complications. Patient was found to have heart rate in the 30s and also in atrial flutter. He has no episodes of dizzy spells, which according the patient is chronic. No syncopal episodes. According the patient, he is feeling okay with no unusual symptoms. Review of Systems 2 Narrative: CONSTITUTIONAL: No fever or chills. EYES: No blurring of vision or other visual disturbances lately. ENT: No hoarseness of voice, auditory disturbances or sore throat. CARDIOVASCULAR: As mentioned above. RESPIRATORY: No significant cough. GASTROINTESTINAL: No hematemesis or melena. GENITOURINARY: No dysuria or hematuria. INTEGUMENTARY: No skin rashes or history of skin cancer. NEURO: No transient ischemic attacks or amaurosis. PSYCHIATRIC: No history of psychosis or major depression. HEMATOLOGIC: No bleeding disorders or significant anemia. ENDOCRINE: No history of polyuria or polydipsia. MUSCULOSKELETAL: No recent joint pain or swelling. ALLERGY/IMMUNOLOGY: As mentioned above. Medications/Allergies Home Medications Medication Instructions Recorded Confirmed Last Taken Type allopurinol 100 mg tablet 100 mg PO DAILY 30 days #30 tabs 10/10/19 05/25/24 05/25/24 Rx cholecalciferol (vitamin D3) 50 50 mcg PO DAILY #30 tabs 10/10/19 05/25/24 05/25/24 Rx mcg (2,000 unit) tablet sennosides 8.6 mg tablet (senna) 17.2 mg (2 x 8.6 mg) PO BID 30 10/10/19 05/25/24 05/25/24 Rx days #120 tabs aspirin 81 mg tablet,delayed 81 mg PO QAM 04/20/21 05/25/24 05/25/24 History release (Adult Low Dose Aspirin) atorvastatin 80 mg tablet 40 mg PO QPM 04/20/21 05/25/24 05/24/24 History magnesium oxide 400 mg (241.3 mg 400 mg PO DAILY 04/20/21 05/25/24 05/25/24 History magnesium) tablet pantoprazole 40 mg tablet,delayed 40 mg PO DAILY 04/20/21 05/25/24 05/25/24 History release acetaminophen 500 mg tablet 1,000 mg PO Q6H PRN Pain 08/25/22 05/25/24 Unknown History multivitamin (One Daily 1 tab PO DAILY 08/25/22 05/25/24 05/25/24 History Multivitamin tablet) melatonin 3 mg tablet 3 - 6 mg PO BEDTIME 09/06/22 05/25/24 05/25/24 History metformin 500 mg tablet,extended 1,000 mg PO BID 09/06/22 05/25/24 05/25/24 History release 24hr (osmotic) sertraline 100 mg tablet 150 mg PO QAM depression 09/06/22 05/25/24 05/25/24 History apixaban 5 mg tablet (Eliquis) 5 mg PO BID #180 tabs 11/01/22 05/25/24 05/25/24 Rx ammonium lactate 12 % lotion 1 applic topical BID PRN Dry Skin 04/09/24 05/25/24 Unknown History clotrimazole 1 % topical cream 1 applic topical BID 04/09/24 05/25/24 Unknown History empagliflozin 25 mg tablet 25 mg PO DAILY 04/09/24 05/25/24 05/25/24 History (Jardiance) meclizine 25 mg chewable tablet 25 mg PO TID PRN Vertigo 04/09/24 05/25/24 05/25/24 History omega 0-ork-zsb-fish oil 1,000 mg 2 cap PO TID 04/09/24 05/25/24 05/25/24 History (120 mg-180 mg) capsule (Fish Oil) potassium chloride 20 mEq See Rx Instructions .Route .COMPLEX 04/09/24 05/25/24 Unknown History tablet,extended release tamsulosin 0.4 mg capsule (Flomax) See Rx Instructions .Route .COMPLEX 04/09/24 05/25/24 05/24/24 History bisacodyl 10 mg rectal suppository 10 mg MI DAILY PRN constipation 05/25/24 05/25/24 Unknown History (Dulcolax (bisacodyl)) bisacodyl 5 mg tablet,delayed 10 mg PO DAILY PRN constipation 05/25/24 05/25/24 Unknown History release (Dulcolax (bisacodyl)) cephalexin 250 mg capsule 250 mg PO DAILY 05/25/24 05/25/24 05/25/24 History metoprolol tartrate 25 mg tablet 25 mg PO BID 05/25/24 05/25/24 05/25/24 History sitagliptin phosphate 100 mg 100 mg PO DAILY 05/25/24 05/25/24 05/25/24 History tablet (Januvia) Allergies Allergy/AdvReac Type Severity Reaction Status Date / Time Penicillins Allergy Unknown Unknown Verified 05/08/24 10:09 niacin Allergy unknown Verified 05/08/24 10:09 Current Medications Generic Name Dose Route Start Last Admin Trade Name Freq PRN Reason Stop Dose Admin Apixaban 5 mg 05/25/24 18:00 05/26/24 09:34 Apixaban 5 Mg Tablet PO 5 mg BID DAVID Administration Aspirin 81 mg 05/26/24 06:00 05/26/24 05:47 Aspirin 81 Mg Ec Tablet PO 81 mg QAM DAVID Administration Atorvastatin Calcium 40 mg 05/25/24 21:00 05/25/24 20:26 Atorvastatin 40 Mg Tablet PO 40 mg BEDTIME DAVID Administration Insulin Human Lispro 0 unit 05/25/24 18:00 05/26/24 09:33 Insulin Lispro 100 Unit/1 Ml SUBCUT 2 unit WM&BEDTIME DAVID Administration Protocol Pantoprazole Sodium 40 mg 05/26/24 09:00 05/26/24 09:[address] 40 Mg Tablet PO 40 mg DAILY DAVID Administration Senna 17.2 mg 05/25/24 18:00 05/26/24 09:34 Sennosides 8.6 Mg Tablet PO 17.2 mg BID DAVID Administration Sertraline HCl 150 mg 05/26/24 06:00 05/26/24 05:47 Sertraline 100 Mg Tablet PO 150 mg QAM DAVID Administration PFSH Acute 2 PFSH: Medical History (Updated 05/26/24 @ 13:58 by Nellie Webb MD) Streptococcus bovis infection 4/4 bottles of blood cx (09/30) positive for Strep bovis in 09/2019, 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 IV antibiotics Abdominal aortic aneurysm Hypertension Diabetes mellitus Endocarditis Atherosclerosis of coronary artery Peripheral neuropathy Footdrop Lumbar stenosis with neurogenic 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 Aortic stenosis Gout COPD (chronic obstructive pulmonary disease) Chronic anticoagulation Chronic alcohol dependence, continuous Chronic back pain Peripheral vascular disease Atrial fibrillation Surgical History (Updated 05/26/24 @ 13:45 by Nellie Webb MD) History of arthroscopy of right shoulder diagnostic at time of bacteremia 09/2019 History of aortic valve replacement bioprosthetic Status post cardiac revascularization with bypass aortocoronary anastomosis of five coronary vessels History of herniorrhaphy History of orthopedic surgery Right shoulder Hx of cholecystectomy Family History Father CAD (coronary artery disease) Social History Smoking and tobacco/nicotine status: former use of tobacco/nicotine Alcohol intake: current Alcohol intake frequency: few times a week Substance/Drug Use: never Household members: spouse Marital status: Current occupational status: retired Vitals/I&O/Wt Last Vital Signs Temp 97.9 F 05/26/24 08:39 Pulse 45 L 05/26/24 08:39 Resp 18 05/26/24 08:39 BP 154/104 05/26/24 08:39 Pulse Ox 96 05/26/24 08:39 O2 Del Method Room Air 05/26/24 08:39 05/25/24 05/26/24 05/26/24 22:59 06:59 14:59 Intake Total 100 / 100 360 / 360 Output Total 400 / 400 900 / 900 Balance -300 / -300 -540 / -540 Weight last 48 hrs Weight 194 lb Weight 194 lb Weight 194 lb Physical Exam 2 Narrative: GENERAL: The patient is alert and oriented times three. Not in any acute distress. HEENT: No significant pallor, icterus or lymphadenopathy.Oral cavity: There are no mucous membrane lesions. NECK: Trachea appears to be central. No masses noted. No JVD or thyromegaly appreciated. RESPIRATORY: Chest is symmetrical. No intercostals muscle retraction or any accessory muscle activation. There is no chest wall tenderness. Breath sounds are heard bilaterally. No rales or rhonchi heard. No evidence of any consolidation. BREASTS: Deferred. HEART: The heart sounds are normal. No S3 or S4. Short systolic murmur at the base of the heart. No daily murmurs. No pericardial rub.. No pericardial rub ABDOMEN: No vessel pulsations or distention. No tenderness. No organomegaly appreciated. Bowel sounds are normally heard. : Deferred. RECTAL: Deferred. LYMPHATIC: No lymphadenopathy noted in the neck. EXTREMITIES: No edema or cyanosis. No clubbing. MUSCULOSKELETAL: No acute joint deformities or swelling SKIN: There are no significant rashes or ecchymosis NEUROPSYCHIATRIC: The patient is alert and oriented x3. Appears to be in a good mood. No tremors or rigidity noted. Urinary Catheter Management: Benson: Cath Placed During This Visit: yes Reason for Continuing Indwelling Catheter: Accurate Measurement of Urinary Output in Critically Ill Patients Urinary Catheter Date of Insertion: 04/09/24 Data 05/26/24 04:57 05/26/24 04:57 Other Labs: Laboratory Last Values WBC 7.53 10^3/uL (3.29-11.43) 05/26/24 04:57 RBC 4.04 10^6/uL (3.85-5.65) 05/26/24 04:57 Hgb 12.40 g/dL (11.27-16.99) 05/26/24 04:57 Hct 39.4 % (37-53) 05/26/24 04:57 MCV 97.5 fl (82-101) 05/26/24 04:57 MCH 30.7 pg (27-33) 05/26/24 04:57 MCHC 31.5 g/dL (30-55) 05/26/24 04:57 RDW 15.2 % (12.1-15.1) H 05/26/24 04:57 Plt Count 210 10^3/cmm (157-399) 05/26/24 04:57 MPV 11.3 fL (7.4-10.4) H 05/26/24 04:57 Neut % (Auto) 59.9 % 05/26/24 04:57 Lymph % (Auto) 20.7 % 05/26/24 04:57 Chambers % (Auto) 11.6 % 05/26/24 04:57 Eos % (Auto) 6.0 % 05/26/24 04:57 Baso % (Auto) 1.3 % 05/26/24 04:57 Neut # (Auto) 4.51 10^3/uL (1.8-7.7) 05/26/24 04:57 Lymph # (Auto) 1.6 10^3/uL (0.8-4.8) 05/26/24 04:57 Chambers # (Auto) 0.9 10^3/uL (0.2-0.9) 05/26/24 04:57 Eos # (Auto) 0.5 10^3/uL (0.0-0.8) 05/26/24 04:57 Baso # (Auto) 0.1 10^3/uL (0.0-0.1) 05/26/24 04:57 Nucleated RBC % (auto) 0 % 05/26/24 04:57 Nucleated RBCs # 0.0 /100WBC 05/26/24 04:57 Sodium 139 mmol/L (136-145) 05/26/24 04:57 Potassium 4.2 mmol/L (3.5-5.1) 05/26/24 04:57 Chloride 105 mmol/L (98-107) 05/26/24 04:57 Carbon Dioxide 22 mmol/L (22-29) 05/26/24 04:57 Anion Gap 16.2 (5-19) 05/26/24 04:57 BUN 18 mg/dL (8-23) 05/26/24 04:57 Creatinine 0.8 mg/dL (0.7-1.2) 05/26/24 04:57 GFR Calculation Not Reportable 05/26/24 04:57 Glucose 146 mg/dL (65-115) H 05/26/24 04:57 POC Glucose 172 mg/dL (70-110) H 05/26/24 11:17 Calculated Osmolality 293 mOsm/kg (285-295) 05/26/24 04:57 Lactic Acid 1.5 mmol/L (0.5-2.2) 05/25/24 13:19 Calcium 8.8 mg/dL (8.5-10.5) 05/26/24 04:57 Phosphorus 3.2 mg/dL (2.5-4.5) 05/25/24 13:19 Magnesium 2.0 mg/dL (1.7-2.3) 05/26/24 04:57 Total Bilirubin 1.2 mg/dL (0.15-1.2) 05/26/24 04:57 AST 29 U/L (0-40) 05/26/24 04:57 ALT 14 U/L (0-41) 05/26/24 04:57 Alkaline Phosphatase 163 U/L (40-130) H 05/26/24 04:57 Troponin T Baseline 21 ng/L (0-15) H 05/25/24 13:19 Troponin T 120 Minute 18.10 ng/L (0-15) H 05/25/24 15:22 Delta Troponin T -2.90 ABS# (0-10) L 05/25/24 15:22 Troponin T Hi Sens 6Hr 19.75 ng/L (0-15) H 05/25/24 19:25 Troponin T Hi Sens 6Hr Delta -1.25 ng/L (0-12) L 05/25/24 19:25 Total Protein 6.8 g/dL (6.6-8.7) 05/26/24 04:57 Albumin 3.5 g/dL (3.5-5.2) 05/26/24 04:57 Globulin 3.3 g/dL (1.3-4.6) 05/26/24 04:57 TSH 1.17 uIU/mL (0.27-4.20) 05/25/24 16:20 Urine Color Yellow (Yellow) 05/25/24 14:19 Urine Appearance Clear (CLEAR) 05/25/24 14:19 Urine pH 6.0 (5-7) 05/25/24 14:19 Ur Specific [place] 1.026 (1.005-1.030) 05/25/24 14:19 Urine Protein Negative (Negative) 05/25/24 14:19 Urine Glucose (UA) 3+ (Normal) H 05/25/24 14:19 Urine Ketones Negative (Negative) 05/25/24 14:19 Urine Blood Negative (Negative) 05/25/24 14:19 Urine Nitrate Negative (Negative) 05/25/24 14:19 Urine Bilirubin Negative (Negative) 05/25/24 14:19 Urine Urobilinogen 0.2 mg/dL (Negative) 05/25/24 14:19 Ur Leukocyte Esterase Negative (Negative) 05/25/24 14:19 Urine RBC 0-2 /hpf (0-2) 05/25/24 14:19 Urine WBC 6-10 /hpf (0-5) 05/25/24 14:19 Ur Squamous Epith Cells 0-5 /hpf (0-5) 05/25/24 14:19 Amorphous Sediment Not Reportable 05/25/24 14:19 Urine Bacteria None seen /hpf (NONE) 05/25/24 14:19 Hyaline Casts 0.40 /lpf 05/25/24 14:19 Micro: Microbiology 05/25/24 13:21 Blood Culture - Preliminary Blood SPECIMEN COLLECTED 05/25/24 13:19 Blood Culture - Preliminary Blood SPECIMEN COLLECTED Other data: EKG from 05/25/2024 Atrial fibrillation with a slow ventricular response rate of 43 bpm. Prominent U wave. Otherwise unremarkable. Echocardiogram on 05/25/2024 Moderate left ventricular hypertrophy. LV ejection fraction of 57.5%.no regional wall motion abnormalities. Severely dilated left atrium. Mildly dilated right atrium. Possibly normal RV size ejection fraction. Thickened mitral valve. Moderate mitral annular calcification. Bioprosthetic valve the aortic position appears to be well- seated. There is no pericardial effusion. Compared to the study from 04/13/2024 , there may not be a significant change in the 2D findings CT of the chest and the abdomen on 04/09/2024 1. Chronic emphysematous changes. Bibasilar atelectasis. 2. Marked cardiomegaly with coronary artery calcification. 3. Fusiform abdominal aortic aneurysm measuring 3.5 x 3.4 x 4.7 cm AP by transverse by craniocaudal stable compared to previous 4. Stable horseshoe kidney 5. Benson catheter. 6. Sigmoid diverticulosis. No evidence of acute diverticulitis. 7. No other acute findings A&P Assessment and plan (1) Atrial fibrillation with slow ventricular response: This patient most likely may have underlying sinus node dysfunction. This is being accentuated by the beta-dayna. So it may be appropriate to hold off on the beta-dayna for the time being. He seems to be responding to this already. Sometime down the line, he may require a permanent pacemaker plantation. (2) S/P AVR (aortic valve replacement): The valve function appears to be appropriate. 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 Currently has no evidence of endocarditis. 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 Currently has no signs of infection. (4) Atherosclerosis of coronary artery of stebbins heart without angina pectoris: Patient had a 5 vessel bypass surgery in 2022. He seems to be doing okay with no chest pain or any specific ischemic symptoms. Qualifiers: Coronary Disease-Associated Artery/Lesion type: stebbins artery Qualified Code(s): I25.10 - Atherosclerotic heart disease of stebbins coronary artery without angina pectoris (5) CVA (cerebral vascular accident): Patient had CVA with no residual motor weakness at this time. Qualifiers: CVA mechanism: unspecified Qualified Code(s): I63.9 - Cerebral infarction, unspecified (6) Abdominal aortic aneurysm: Based on the CTA from 04/09/2024, the aneurysm appears to be small. At this point, the patient may not require any specific intervention. May continue the current treatment. Qualifiers: Presence of rupture: without rupture Qualified Code(s): I71.4 - Abdominal aortic aneurysm, without rupture (7) Hypertension: Since the blood pressure is in the normal range, patient may not require any medication changes at this time. Advised to continue on the current measures. Qualifiers: Hypertension type: essential hypertension Qualified Code(s): I10 - Essential (primary) hypertension Plan Patient may be closely watched on telemetry. Dr. lowery to take him off the beta-dayna. For better control of the blood pressure, he may be given amlodipine 5 mg p.o. daily. The blood pressure and the heart rate needs to be closely monitored. If he is remained stable with no new symptoms, we may hold off on any further intervention at this point. Consult Attestations 2 Medical Necessity Statement: Patient requires continued hospital stay for close monitoring and further management Coding Level of Care Code 07119 Diagnoses Atrial fibrillation with slow ventricular response I48.91 S/P AVR (aortic valve replacement) Z95.2 Streptococcus bovis infection A49.1 Atherosclerosis of stebbins coronary artery of stebbins heart without angina pectoris I25.10 Coronary Disease-Associated Artery/Lesion type: stebbins artery Cerebrovascular accident (CVA), unspecified mechanism I63.9 CVA mechanism: unspecified Abdominal aortic aneurysm (AAA) without rupture I71.4 Presence of rupture: without rupture Essential hypertension I10 Hypertension type: essential hypertension Time Spent (min) 60
[2024-05-26] MEDS: amlodipine 5 mg Tablet PO (12:22)
--- NOTE | 2024-05-26 15:15 | P.PN_ITS ---
Subjective 2 Subjective: still bradycardic Vitals/I&O/Wt Last Vital Signs Temp 98.3 F 05/26/24 12:00 Pulse 42 L 05/26/24 12:00 Resp 19 H 05/26/24 12:00 BP 162/108 05/26/24 12:00 Pulse Ox 90 05/26/24 12:00 O2 Del Method Room Air 05/26/24 12:00 05/26/24 05/26/24 05/26/24 06:59 14:59 22:59 Intake Total 840 / 840 Output Total 900 / 900 Balance -60 / -60 Weight last 48 hrs Weight 87.997 kg Weight 87.997 kg Weight 87.997 kg Physical Exam 2 Narrative: General: Alert oriented x 3. Appears comfortable no complaints at this time. On room air. HEENT: Normocephalic, atraumatic, EOMI, Cardio: Regular rate rhythm, normal S1-S2, no gross murmurs present. Respiratory: Clear to auscultation bilaterally no gross wheezes or rhonchi appreciated. GI: Abdomen soft, nontender, nondistended, bowel sounds + Extremities: No edema noted. Neuro: ANO x 3, able to move all 4 extremities, nonfocal. ? Urinary Catheter Management: Benson: Cath Placed During This Visit: yes Reason for Continuing Indwelling Catheter: Accurate Measurement of Urinary Output in Critically Ill Patients Urinary Catheter Date of Insertion: 04/09/24 Data 05/26/24 04:57 05/26/24 04:57 Micro: Microbiology 05/25/24 13:21 Blood Culture - Preliminary Blood NEGATIVE TO DATE 05/25/24 13:19 Blood Culture - Preliminary Blood NEGATIVE TO DATE A&P Assessment and plan (1) Atrial fibrillation with slow ventricular response: (2) Bradycardia: Plan # Bradycardia, atrial flutter with slow ventricular response - Hold home beta-dayna ? Order glucagon 1 mg IV x 1 ? Continue to monitor on telemetry ? Patient may require atropine versus dopamine drip if worsening bradycardia and symptomatic. ? Blood pressure is stable at this time. ? Check limited echo ? If heart rate does not improve in next 24 to 48 hours may consider cardiology consultation ? Continue aspirin Eliquis atorvastatin, Protonix, sertraline. ? Continue lidocaine insulin low-dose intensity ? Hold Jardiance metformin, Januvia at this time. ? Check labs in a.m. keep magnesium above 2 potassium above 4 ? Check TSH ? Troponins obtained. Await 6-hour troponin however at 2 hours delta is -2.9. Potassium 4.5. ? If patient remains bradycardic may require event monitor at discharge ? Case was discussed with on-call formulation chemist by the ER physician who recommended to hold beta-dayna and watch patient on telemetry at this time. May consult cardiology if the need arises. Other medical problems as follows below: #Alcohol abuse #Atrial fibrillation. #History of CABG and aortic valve replacement 2022. #Coronary artery disease, triple-vessel status post CABG #History of mitral valve endocarditis, history of ESBL UTI, history of bacteremia #Hypertension #Hyperlipidemia #GERD #Chronic anticoagulation with Eliquis 05/26/2024 -Continue to monitor heart rate. ? Patient has reported that he has been lightheaded. ? Wait for metoprolol washout period. Query pacemaker ? Discussed with Dr. Webb. Cardiology consult ordered. ? Patient will need event monitor at discharge ? Attestations 2 Medical Necessity Statement*: Observation status for 48 hours secondary to bradycardia, atrial flutter with slow ventricular response. Requires inpatient telemetry monitoring at this time. Diagnoses Atrial fibrillation with slow ventricular response I48.91 Bradycardia R00.1
[2024-05-26 17:15] LABS: Glucose Point of Care 140 mg/dL (70-110)
[2024-05-26 20:16] LABS: Glucose Point of Care 192 mg/dL (70-110)
[2024-05-26] MEDS: atorvastatin 40 mg Tablet PO (20:58)
[2024-05-27] VITALS (55 sets, daily range): BP systolic 141–167; BP diastolic 75–81; PULSE 43–63; RESP 13–31; O2SAT 90–97
[2024-05-27 05:13] LABS: Basophils # 0.1 10^3/uL (0.0-0.1); Eosinophils # 0.5 10^3/uL (0.0-0.8); Eosinophils % 5.6 %; Hematocrit 39.4 % (37-53); Lymphocytes # 1.9 10^3/uL (0.8-4.8); Lymphocytes % 21.1 %; Mean Corpuscular HGB Conc 32.7 g/dL (30-55); Mean Corpuscular Hemoglobin 30.9 pg (27-33); Mean Corpuscular Volume 94.5 fl (82-101); Mean Platelet Volume 10.9 fL (7.4-10.4); Monocytes # 1.2 10^3/uL (0.2-0.9); Monocytes % 13.1 %; Neutrophils # 5.16 10^3/uL (1.8-7.7); Neutrophils % 58.6 %; Nucleated Red Blood Cells % 0 %; Platelet Count 223 10^3/cmm (157-399); Red Blood Count 4.17 10^6/uL (3.85-5.65)
[2024-05-27 05:41] LABS: Blood Urea Nitrogen 18 mg/dL (8-23); Calcium 8.7 mg/dL (8.5-10.5); Carbon Dioxide 21 mmol/L (22-29); Chloride 95 mmol/L (98-107); Creatinine Clr Calc Pharmacy 89.4237; Glucose 166 mg/dL (65-115); Magnesium 1.9 mg/dL (1.7-2.3); Osmolality Calculated 292 mOsm/kg (285-295); Phosphorus 3.8 mg/dL (2.5-4.5); Sodium 138 mmol/L (136-145)
[2024-05-27 06:19] LABS: Glucose Point of Care 163 mg/dL (70-110)
[2024-05-27] MEDS: sertraline 100 mg Tablet 150 MG PO (08:19)
[2024-05-27] MEDS: pantoprazole DR 40 mg Tablet PO (08:19)
[2024-05-27] MEDS: insulin lispro 100 unit/1 mL SUBCUT (08:19)
[2024-05-27] MEDS: aspirin 81 mg EC Tablet PO (08:20)
[2024-05-27] MEDS: sennosides 8.6 mg Tablet 17.2 MG PO (08:20)
[2024-05-27] MEDS: apixaban 5 mg Tablet PO (08:20)
[2024-05-27] MEDS: amlodipine 5 mg Tablet PO (08:20)
--- NOTE | 2024-05-27 10:39 | PM.PN ---
Subjective Subjective: The patient is the patient is feeling okay. The patient is feeling okay. Heart rate seems to be in the 50s on telemetry.No chest pain, palpitations, dizziness or syncopal episodes. Medications: Medication Review Details: Current Medications Acetaminophen (Acetaminophen 500 Mg Tablet) 1,000 mg PO Q6H PRN PRN Reason: Pain Albuterol/Ipratropium (Ipratropium-Albuterol 3 Ml Neb) 3 ml INHALATION Q6H PRN PRN Reason: SHORTNESS OF BREATH Amlodipine Besylate (Amlodipine 5 Mg Tablet) 5 mg PO DAILY PENDING SALE TO [facility] Last Admin: 05/27/24 08:20 Dose: 5 mg Apixaban (Apixaban 5 Mg Tablet) 5 mg PO BID PENDING SALE TO [facility] Last Admin: 05/27/24 08:20 Dose: 5 mg Aspirin (Aspirin 81 Mg Ec Tablet) 81 mg PO QAM PENDING SALE TO [facility] Last Admin: 05/27/24 08:20 Dose: 81 mg Atorvastatin Calcium (Atorvastatin 40 Mg Tablet) 40 mg PO BEDTIME PENDING SALE TO [facility] Last Admin: 05/26/24 20:58 Dose: 40 mg Bisacodyl (Bisacodyl 10 Mg Supp) 10 mg MN DAILY PRN PRN Reason: constipation Glucagon (Glucagon 1 Mg/Ml Kit 1 Ml) 1 mg IM ONCE PRN; Protocol PRN Reason: Adult Acute Hypoglycemia Nursing Prot. Dextrose (D5w) 500 mls @ 0 mls/hr IV ONCE PRN; Protocol PRN Reason: Adult Acute Hypoglycemia Prot Dextrose (D10w) 125 mls @ 750 mls/hr IV PRN PRN; Protocol PRN Reason: Adult Acute Hypoglycemia Nursing Protocol Dextrose (D10w) 250 mls @ 1,000 mls/hr IV PRN PRN; Protocol PRN Reason: Adult Acute Hypoglycemia Nursing Protocol Insulin Human Lispro (Insulin Lispro 100 Unit/1 Ml) 0 unit SUBCUT WM&BEDTIME PENDING SALE TO [facility]; Protocol Last Admin: 05/27/24 08:19 Dose: 2 unit Lactic Acid (Ammonium Lactate Lotion 226 Gm Btl) 1 applic TOPICAL BID PRN PRN Reason: Dry Skin Pantoprazole Sodium (Pantoprazole Dr 40 Mg Tablet) 40 mg PO DAILY PENDING SALE TO [facility] Last Admin: 05/27/24 08:19 Dose: 40 mg Senna (Sennosides 8.6 Mg Tablet) 17.2 mg PO BID PENDING SALE TO [facility] Last Admin: 05/27/24 08:20 Dose: 17.2 mg Sertraline HCl (Sertraline 100 Mg Tablet) 150 mg PO QAM PENDING SALE TO [facility] Last Admin: 05/27/24 08:19 Dose: 150 mg Vitals/I&O/Wt Last Vital Signs Temp 97.7 F 05/26/24 19:57 Pulse 49 L 05/27/24 09:02 Resp 16 05/27/24 09:02 BP 156/79 05/27/24 04:00 Pulse Ox 95 05/27/24 09:02 O2 Del Method Room Air 05/27/24 09:02 05/26/24 05/27/24 05/27/24 22:59 06:59 14:59 Intake Total 240 / 1080 240 / 240 Output Total 725 / 1625 950 / 2575 Balance -485 / -545 -950 / -1495 240 / 240 Weight last 48 hrs Weight 194 lb Weight 194 lb Weight 194 lb Weight 194 lb Physical Exam Narrative: GENERAL: The patient is alert and oriented times three. Not in any acute distress. HEENT: No significant pallor, icterus or lymphadenopathy.Oral cavity: There are no mucous membrane lesions. NECK: Trachea appears to be central. No masses noted. No JVD or thyromegaly appreciated. RESPIRATORY: Chest is symmetrical. No intercostals muscle retraction or any accessory muscle activation. There is no chest wall tenderness. Breath sounds are heard bilaterally. No rales or rhonchi heard. No evidence of any consolidation. BREASTS: Deferred. HEART: The heart sounds are normal. No S3 or S4. Short systolic murmur at the base of the heart. No daily murmurs. No pericardial rub.. No pericardial rub ABDOMEN: No vessel pulsations or distention. No tenderness. No organomegaly appreciated. Bowel sounds are normally heard. : Deferred. RECTAL: Deferred. LYMPHATIC: No lymphadenopathy noted in the neck. EXTREMITIES: No edema or cyanosis. No clubbing. MUSCULOSKELETAL: No acute joint deformities or swelling SKIN: There are no significant rashes or ecchymosis NEUROPSYCHIATRIC: The patient is alert and oriented x3. Appears to be in a good mood. No tremors or rigidity noted. Urinary Catheter Management: Benson: Cath Placed During This Visit: yes Reason for Continuing Indwelling Catheter: Accurate Measurement of Urinary Output in Critically Ill Patients Urinary Catheter Date of Insertion: 04/09/24 Data 05/27/24 04:45 05/27/24 04:45 Other Labs: Laboratory Last Values WBC 8.80 10^3/uL (3.29-11.43) 05/27/24 04:45 RBC 4.17 10^6/uL (3.85-5.65) 05/27/24 04:45 Hgb 12.90 g/dL (11.27-16.99) 05/27/24 04:45 Hct 39.4 % (37-53) 05/27/24 04:45 MCV 94.5 fl (82-101) 05/27/24 04:45 MCH 30.9 pg (27-33) 05/27/24 04:45 MCHC 32.7 g/dL (30-55) 05/27/24 04:45 RDW 15.0 % (12.1-15.1) 05/27/24 04:45 Plt Count 223 10^3/cmm (157-399) 05/27/24 04:45 MPV 10.9 fL (7.4-10.4) H 05/27/24 04:45 Neut % (Auto) 58.6 % 05/27/24 04:45 Lymph % (Auto) 21.1 % 05/27/24 04:45 [place] % (Auto) 13.1 % 05/27/24 04:45 Eos % (Auto) 5.6 % 05/27/24 04:45 Baso % (Auto) 1.0 % 05/27/24 04:45 Neut # (Auto) 5.16 10^3/uL (1.8-7.7) 05/27/24 04:45 Lymph # (Auto) 1.9 10^3/uL (0.8-4.8) 05/27/24 04:45 [place] # (Auto) 1.2 10^3/uL (0.2-0.9) H 05/27/24 04:45 Eos # (Auto) 0.5 10^3/uL (0.0-0.8) 05/27/24 04:45 Baso # (Auto) 0.1 10^3/uL (0.0-0.1) 05/27/24 04:45 Nucleated RBC % (auto) 0 % 05/27/24 04:45 Nucleated RBCs # 0.0 /100WBC 05/27/24 04:45 Sodium 138 mmol/L (136-145) 05/27/24 04:45 Potassium 4.0 mmol/L (3.5-5.1) 05/27/24 04:45 Chloride 95 mmol/L (98-107) L 05/27/24 04:45 Carbon Dioxide 21 mmol/L (22-29) L 05/27/24 04:45 Anion Gap 26.0 (5-19) H 05/27/24 04:45 BUN 18 mg/dL (8-23) 05/27/24 04:45 Creatinine 0.8 mg/dL (0.7-1.2) 05/27/24 04:45 GFR Calculation Not Reportable 05/27/24 04:45 Glucose 166 mg/dL (65-115) H 05/27/24 04:45 POC Glucose 163 mg/dL (70-110) H 05/27/24 06:16 Calculated Osmolality 292 mOsm/kg (285-295) 05/27/24 04:45 Lactic Acid 1.5 mmol/L (0.5-2.2) 05/25/24 13:19 Calcium 8.7 mg/dL (8.5-10.5) 05/27/24 04:45 Phosphorus 3.8 mg/dL (2.5-4.5) 05/27/24 04:45 Magnesium 1.9 mg/dL (1.7-2.3) 05/27/24 04:45 Total Bilirubin 1.2 mg/dL (0.15-1.2) 05/26/24 04:57 AST 29 U/L (0-40) 05/26/24 04:57 ALT 14 U/L (0-41) 05/26/24 04:57 Alkaline Phosphatase 163 U/L (40-130) H 05/26/24 04:57 Troponin T Baseline 21 ng/L (0-15) H 05/25/24 13:19 Troponin T 120 Minute 18.10 ng/L (0-15) H 05/25/24 15:22 Delta Troponin T -2.90 ABS# (0-10) L 05/25/24 15:22 Troponin T Hi Sens 6Hr 19.75 ng/L (0-15) H 05/25/24 19:25 Troponin T Hi Sens 6Hr Delta -1.25 ng/L (0-12) L 05/25/24 19:25 Total Protein 6.8 g/dL (6.6-8.7) 05/26/24 04:57 Albumin 3.5 g/dL (3.5-5.2) 05/26/24 04:57 Globulin 3.3 g/dL (1.3-4.6) 05/26/24 04:57 TSH 1.17 uIU/mL (0.27-4.20) 05/25/24 16:20 Urine Color Yellow (Yellow) 05/25/24 14:19 Urine Appearance Clear (CLEAR) 05/25/24 14:19 Urine pH 6.0 (5-7) 05/25/24 14:19 Ur Specific [place] 1.026 (1.005-1.030) 05/25/24 14:19 Urine Protein Negative (Negative) 05/25/24 14:19 Urine Glucose (UA) 3+ (Normal) H 05/25/24 14:19 Urine Ketones Negative (Negative) 05/25/24 14:19 Urine Blood Negative (Negative) 05/25/24 14:19 Urine Nitrate Negative (Negative) 05/25/24 14:19 Urine Bilirubin Negative (Negative) 05/25/24 14:19 Urine Urobilinogen 0.2 mg/dL (Negative) 05/25/24 14:19 Ur Leukocyte Esterase Negative (Negative) 05/25/24 14:19 Urine RBC 0-2 /hpf (0-2) 05/25/24 14:19 Urine WBC 6-10 /hpf (0-5) 05/25/24 14:19 Ur Squamous Epith Cells 0-5 /hpf (0-5) 05/25/24 14:19 Amorphous Sediment Not Reportable 05/25/24 14:19 Urine Bacteria None seen /hpf (NONE) 05/25/24 14:19 Hyaline Casts 0.40 /lpf 05/25/24 14:19 Micro: Microbiology 05/25/24 13:21 Blood Culture - Preliminary Blood NEGATIVE TO DATE 05/25/24 13:19 Blood Culture - Preliminary Blood NEGATIVE TO DATE A&P Assessment and plan (1) Atrial fibrillation with slow ventricular response: This patient most likely may have underlying sinus node dysfunction. This is being accentuated by the beta-dayna. So it may be appropriate to hold off on the beta-dayna for the time being. He seems to be responding to this already. Sometime down the line, he may require a permanent pacemaker [place]. Hemodynamically seems to be stable (2) S/P AVR (aortic valve replacement): The valve function appears to be appropriate. 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 Currently has no evidence of endocarditis. 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 Currently has no signs of infection. (4) Atherosclerosis of coronary artery of teller heart without angina pectoris: Patient had a 5 vessel bypass surgery in 2022. He seems to be doing okay with no chest pain or any specific ischemic symptoms. Qualifiers: Coronary Disease-Associated Artery/Lesion type: teller artery Qualified Code(s): I25.10 - Atherosclerotic heart disease of teller coronary artery without angina pectoris (5) CVA (cerebral vascular accident): Patient had CVA with no residual motor weakness at this time.Continue with chronic oral anticoagulation Qualifiers: CVA mechanism: unspecified Qualified Code(s): I63.9 - Cerebral infarction, unspecified (6) Abdominal aortic aneurysm: Based on the CTA from 04/09/2024, the aneurysm appears to be small. At this point, the patient may not require any specific intervention. May continue the current treatment. Qualifiers: Presence of rupture: without rupture Qualified Code(s): I71.4 - Abdominal aortic aneurysm, without rupture (7) Hypertension: Since the blood pressure is in the normal range, patient may not require any medication changes at this time. Advised to continue on the current measures. Qualifiers: Hypertension type: essential hypertension Qualified Code(s): I10 - Essential (primary) hypertension Plan Patient has seems to be tolerating the amlodipine so far well. May continue on the current dose. If he continues to remain stable, may be discharged home from a cardiac standpoint. Consider event monitor as an outpatient.Appointment the [facility] in 1 month Attestations Medical Necessity Statement*: Disposition as per the primary Coding Level of Care Code 81362 Diagnoses Atrial fibrillation with slow ventricular response I48.91 S/P AVR (aortic valve replacement) Z95.2 Streptococcus bovis infection A49.1 Atherosclerosis of teller coronary artery of teller heart without angina pectoris I25.10 Coronary Disease-Associated Artery/Lesion type: teller artery Cerebrovascular accident (CVA), unspecified mechanism I63.9 CVA mechanism: unspecified Abdominal aortic aneurysm (AAA) without rupture I71.4 Presence of rupture: without rupture Essential hypertension I10 Hypertension type: essential hypertension
--- NOTE | 2024-05-27 11:18 | PM.DCS ---
Discharge Providers Date of Admission: 05/25/24 14:58 Date of Discharge: May 27, 2024 Attending Provider at Admission: Carol Dick MD Attending Provider at Discharge: Carol Dick MD Primary Care Provider: Kaila Mohr MD Diagnoses at Discharge Discharge Diagnosis (1) Atrial fibrillation with slow ventricular response: Status: Acute (2) S/P AVR (aortic valve replacement): Status: Acute (3) Streptococcus bovis infection: Status: Inactive Permanent problem details: 08/24 bottles of blood cx (09/30) positive for Strep bovis in 09/2019, treated with intermediate designer IV antibiotics (4) Atherosclerosis of coronary artery of [place] heart without angina pectoris: Status: Acute Qualifiers: Coronary Disease-Associated Artery/Lesion type: [place] artery Qualified Code(s): I25.10 - Atherosclerotic heart disease of [place] coronary artery without angina pectoris (5) CVA (cerebral vascular accident): Status: Acute Qualifiers: CVA mechanism: unspecified Qualified Code(s): I63.9 - Cerebral infarction, unspecified (6) Abdominal aortic aneurysm: Status: Acute Qualifiers: Presence of rupture: without rupture Qualified Code(s): I71.4 - Abdominal aortic aneurysm, without rupture (7) Hypertension: Status: Acute Qualifiers: Hypertension type: essential hypertension Qualified Code(s): I10 - Essential (primary) hypertension Reason for Visit Reason for Visit: low heart rate Hospital Course Hospital Course Patient presented to the hospital with lightheadedness dizziness and his heart rate was noted to be in 40s as per home health nurse. He was requested to go to the hospital for evaluation. In the ER he was noted to be bradycardic. No medications were given at this time and was admitted for observation. I did give patient glucagon 1 mg IV x 1. He did not require atropine or dopamine. He remained bradycardic however heart rate did go up when patient would ambulate. Cardiology was consulted for evaluation for pacemaker. Patient was on metoprolol at home and he was observed in the hospital for 48 hours for washout period. Heart rate remained in 40s however he was asymptomatic at this point. Event monitor was placed and he was discharged home to follow-up with cardiology as an outpatient. 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 Should patient present back to the hospital with bradycardia please discuss with cardiology prior to admission since our facility does not do leadless pacemakers. Leadless pacemaker recommendation was made by Dr. Webb who saw him in consultation on May 26, 2024. Physical Exam Narrative: General: Alert oriented x 3. Appears comfortable no complaints at this time. On room air. HEENT: Normocephalic, atraumatic, EOMI, Cardio: bradycardic, normal S1-S2, no gross murmurs present. Respiratory: Clear to auscultation bilaterally no gross wheezes or rhonchi appreciated. GI: Abdomen soft, nontender, nondistended, bowel sounds + Extremities: No edema noted. Neuro: ANO x 3, able to move all 4 extremities, nonfocal. ? Urinary Catheter Management: Benson: Cath Placed During This Visit: yes Reason for Continuing Indwelling Catheter: Accurate Measurement of Urinary Output in Critically Ill Patients Urinary Catheter Date of Insertion: 04/09/24 Discharge Data Studies Completed and Pending Completed Studies During Hospitalization Category Date Time Status XR chest 1V portable [id number] Stat Exams 05/25/24 13:04 Completed CV. echo limited [id number] Stat Ultrasound 05/25/24 16:00 Completed Pending at discharge Category Date Time Status Blood Culture Stat Lab 05/25/24 13:21 Results Radiology Impressions Chest X-Ray 05/25/24 13:04 IMPRESSION: No acute findings. Laboratory Results WBC 8.80 10^3/uL (3.29-11.43) 05/27/24 04:45 RBC 4.17 10^6/uL (3.85-5.65) 05/27/24 04:45 Hgb 12.90 g/dL (11.27-16.99) 05/27/24 04:45 Hct 39.4 % (37-53) 05/27/24 04:45 MCV 94.5 fl (82-101) 05/27/24 04:45 MCH 30.9 pg (27-33) 05/27/24 04:45 MCHC 32.7 g/dL (30-55) 05/27/24 04:45 RDW 15.0 % (12.1-15.1) 05/27/24 04:45 Plt Count 223 10^3/cmm (157-399) 05/27/24 04:45 MPV 10.9 fL (7.4-10.4) H 05/27/24 04:45 Neut % (Auto) 58.6 % 05/27/24 04:45 Lymph % (Auto) 21.1 % 05/27/24 04:45 [place] % (Auto) 13.1 % 05/27/24 04:45 Eos % (Auto) 5.6 % 05/27/24 04:45 Baso % (Auto) 1.0 % 05/27/24 04:45 Neut # (Auto) 5.16 10^3/uL (1.8-7.7) 05/27/24 04:45 Lymph # (Auto) 1.9 10^3/uL (0.8-4.8) 05/27/24 04:45 [place] # (Auto) 1.2 10^3/uL (0.2-0.9) H 05/27/24 04:45 Eos # (Auto) 0.5 10^3/uL (0.0-0.8) 05/27/24 04:45 Baso # (Auto) 0.1 10^3/uL (0.0-0.1) 05/27/24 04:45 Nucleated RBC % (auto) 0 % 05/27/24 04:45 Nucleated RBCs # 0.0 /100WBC 05/27/24 04:45 Sodium 138 mmol/L (136-145) 05/27/24 04:45 Potassium 4.0 mmol/L (3.5-5.1) 05/27/24 04:45 Chloride 95 mmol/L (98-107) L 05/27/24 04:45 Carbon Dioxide 21 mmol/L (22-29) L 05/27/24 04:45 Anion Gap 26.0 (5-19) H 05/27/24 04:45 BUN 18 mg/dL (8-23) 05/27/24 04:45 Creatinine 0.8 mg/dL (0.7-1.2) 05/27/24 04:45 GFR Calculation Not Reportable 05/27/24 04:45 Glucose 166 mg/dL (65-115) H 05/27/24 04:45 POC Glucose 163 mg/dL (70-110) H 05/27/24 06:16 Calculated Osmolality 292 mOsm/kg (285-295) 05/27/24 04:45 Lactic Acid 1.5 mmol/L (0.5-2.2) 05/25/24 13:19 Calcium 8.7 mg/dL (8.5-10.5) 05/27/24 04:45 Phosphorus 3.8 mg/dL (2.5-4.5) 05/27/24 04:45 Magnesium 1.9 mg/dL (1.7-2.3) 05/27/24 04:45 Total Bilirubin 1.2 mg/dL (0.15-1.2) 05/26/24 04:57 AST 29 U/L (0-40) 05/26/24 04:57 ALT 14 U/L (0-41) 05/26/24 04:57 Alkaline Phosphatase 163 U/L (40-130) H 05/26/24 04:57 Troponin T Baseline 21 ng/L (0-15) H 05/25/24 13:19 Troponin T 120 Minute 18.10 ng/L (0-15) H 05/25/24 15:22 Delta Troponin T -2.90 ABS# (0-10) L 05/25/24 15:22 Troponin T Hi Sens 6Hr 19.75 ng/L (0-15) H 05/25/24 19:25 Troponin T Hi Sens 6Hr Delta -1.25 ng/L (0-12) L 05/25/24 19:25 Total Protein 6.8 g/dL (6.6-8.7) 05/26/24 04:57 Albumin 3.5 g/dL (3.5-5.2) 05/26/24 04:57 Globulin 3.3 g/dL (1.3-4.6) 05/26/24 04:57 TSH 1.17 uIU/mL (0.27-4.20) 05/25/24 16:20 Urine Color Yellow (Yellow) 05/25/24 14:19 Urine Appearance Clear (CLEAR) 05/25/24 14:19 Urine pH 6.0 (5-7) 05/25/24 14:19 Ur Specific [place] 1.026 (1.005-1.030) 05/25/24 14:19 Urine Protein Negative (Negative) 05/25/24 14:19 Urine Glucose (UA) 3+ (Normal) H 05/25/24 14:19 Urine Ketones Negative (Negative) 05/25/24 14:19 Urine Blood Negative (Negative) 05/25/24 14:19 Urine Nitrate Negative (Negative) 05/25/24 14:19 Urine Bilirubin Negative (Negative) 05/25/24 14:19 Urine Urobilinogen 0.2 mg/dL (Negative) 05/25/24 14:19 Ur Leukocyte Esterase Negative (Negative) 05/25/24 14:19 Urine RBC 0-2 /hpf (0-2) 05/25/24 14:19 Urine WBC 6-10 /hpf (0-5) 05/25/24 14:19 Ur Squamous Epith Cells 0-5 /hpf (0-5) 05/25/24 14:19 Amorphous Sediment Not Reportable 05/25/24 14:19 Urine Bacteria None seen /hpf (NONE) 05/25/24 14:19 Hyaline Casts 0.40 /lpf 05/25/24 14:19 Vitals Last Vital Signs Temp 97.7 F 05/26/24 19:57 Pulse 48 L 05/27/24 10:35 Resp 19 H 05/27/24 10:35 BP 141/81 05/27/24 10:35 Pulse Ox 96 05/27/24 10:35 O2 Del Method Room Air 05/27/24 09:02 Discharge Plan Discharge Patient Disposition: Home Condition: Stable Prescriptions: New amlodipine 5 mg Tablet 5 mg PO DAILY Qty: 30 0RF Continued aspirin [Adult Low Dose Aspirin] 81 mg tablet,delayed release (DR/EC) 81 mg PO QAM magnesium oxide 400 mg (241.3 mg magnesium) tablet 400 mg PO DAILY pantoprazole 40 mg tablet,delayed release (DR/EC) 40 mg PO DAILY atorvastatin 80 mg tablet 40 mg PO QPM Eliquis 5 mg tablet 5 mg PO BID Qty: 180 3RF sennosides [senna] 8.6 mg Tablet 17.2 mg PO BID 30 Days Qty: 120 0RF allopurinol 100 mg Tablet 100 mg PO DAILY 30 Days Qty: 30 0RF cholecalciferol (vitamin D3) 50 mcg (2,000 unit) Tablet 50 mcg PO DAILY Qty: 30 0RF acetaminophen 500 mg Tablet 1,000 mg PO Q6H PRN (Reason: Pain) multivitamin [One Daily Multivitamin] Tablet 1 tab PO DAILY sertraline 100 mg Tablet 150 mg PO QAM melatonin 3 mg Tablet 3 - 6 mg PO BEDTIME metformin 500 mg Tablet Extended Release 24hr 1,000 mg PO BID Jardiance 25 mg Tablet 25 mg PO DAILY ammonium lactate 12 % Lotion 1 applic TOPICAL BID PRN (Reason: Dry Skin) clotrimazole 1 % Cream 1 applic TOPICAL BID potassium chloride 20 mEq Tablet Extended Release See Rx Instructions .ROUTE .COMPLEX Rx Instructions: take one half tablet by mouth twice weekly omega 6-lua-fsj-fish oil [Fish Oil] 1,000 (120-180) mg Capsule 2 cap PO TID tamsulosin [Flomax] 0.4 mg capsule See Rx Instructions .ROUTE .COMPLEX Rx Instructions: take 0.4 mg by mouth every evening approximately 30 minutes after the same meal each day Januvia 100 mg tablet 100 mg PO DAILY cephalexin 250 mg Capsule 250 mg PO DAILY bisacodyl [Dulcolax (bisacodyl)] 10 mg Suppository 10 mg [place] DAILY PRN (Reason: constipation ) bisacodyl [Dulcolax (bisacodyl)] 5 mg Tablet,Delayed Release (Dr/Ec) 10 mg PO DAILY PRN (Reason: constipation ) Held meclizine 25 mg Tablet,Chewable 25 mg PO TID PRN (Reason: Vertigo) Hold Instructions: see pcp Discontinued metoprolol tartrate 25 mg tablet 25 mg PO BID Discharge Orders: Discharge Order (Routine); Ordered 05/27/24 Ordered By: Carol Dick Referrals: Marii Timmons NP [Nurse Practitioner] - 1 week (We have notified your physician's clinic of the need for a follow-up appointment to be scheduled. If you have not heard from them within the next 2 business days, please call them directly. ) Nellie Webb MD [Physician] - 1 month (We have notified your physician's clinic of the need for a follow-up appointment to be scheduled. If you have not heard from them within the next 2 business days, please call them directly. ) Kaila Mohr MD [Primary Care Provider] - 4-7 days (Please call for an follow-up appointment with 4 to 7 days. Thank you ) Discharge Diet: Cardiac Patient Instructions: Amlodipine (By mouth), A-fib (Atrial Fibrillation) (DC), Bradycardia (DC), Opioid Safety Discharge Attestations Time Spent in Discharge Care*: greater than 30 min Status at Discharge: Cognitive status at discharge: cognitively intact, Behavioral status at discharge: cooperative, Quality Metrics Clinical Quality Measures [ No reported AMI, CVA or VTE this stay] Coding Level of Care Code Acute Code for Chg Fwd Diagnoses Atrial fibrillation with slow ventricular response I48.91 S/P AVR (aortic valve replacement) Z95.2 Streptococcus bovis infection A49.1 Atherosclerosis of [place] coronary artery of [place] heart without angina pectoris I25.10 Coronary Disease-Associated Artery/Lesion type: [place] artery Cerebrovascular accident (CVA), unspecified mechanism I63.9 CVA mechanism: unspecified Abdominal aortic aneurysm (AAA) without rupture I71.4 Presence of rupture: without rupture Essential hypertension I10 Hypertension type: essential hypertension
--- NOTE | 2024-05-27 13:07 | PC.NURSE ---
discharge instructions given and explained to pt and spouse.they verb understanding of instructions.discharged via w/c to exit at this time.spouse to drive pt home
== END 2024-05-27 12:15 | disposition home or self-care (01) ==
LOC: ER 14:31 → CSU 14:58
PROVIDERS: Admitting Provider Internal Medicine; Emergency Provider Emergency Medicine; PCP Family Medicine; Visit Provider Internal Medicine
DX: I48.91 Unspecified atrial fibrillation (principal); Z95.2 Presence of prosthetic heart valve; I25.10 Atherosclerotic heart disease of native coronary artery without angina pectoris; Z86.73 Personal history of transient ischemic attack (TIA), and cerebral infarction without residual deficits; R00.1 Bradycardia, unspecified; Z95.1 Presence of aortocoronary bypass graft; E11.22 Type 2 diabetes mellitus with diabetic chronic kidney disease; I12.9 Hypertensive chronic kidney disease with stage 1 through stage 4 chronic kidney disease, or unspecified chronic kidney disease; N18.9 Chronic kidney disease, unspecified; E78.5 Hyperlipidemia, unspecified; Z79.01 Long term (current) use of anticoagulants; M21.379 Foot drop, unspecified foot; J44.9 Chronic obstructive pulmonary disease, unspecified; Z87.891 Personal history of nicotine dependence
CPT/HCPCS: 36415; 36416; 71045; 80048; 80053; 81001; 82962; 83605; 83735; 84100; 84443; 84484; 85025; 87040; 93005; 93308; 96372; 96374; 99222; 99285; A9270; G0378; J1610; J1815

== ENCOUNTER → 2024-06-06 14:43 | Outpatient (BNVA) | payer OTHER, SELFPAY | PROVIDERS: PCP Family Medicine; Visit Provider Nurse Practitioner Family | DX: R00.1 Bradycardia, unspecified (principal); I25.10 Atherosclerotic heart disease of native coronary artery without angina pectoris; Z95.828 Presence of other vascular implants and grafts; I48.92 Unspecified atrial flutter; Z95.2 Presence of prosthetic heart valve; I71.40 Abdominal aortic aneurysm, without rupture, unspecified; Z87.891 Personal history of nicotine dependence; I10 Essential (primary) hypertension; Z79.01 Long term (current) use of anticoagulants | CPT/HCPCS: 99214 ==

== ENCOUNTER → 2024-06-11 09:45 | Outpatient (BNVA) | payer OTHER, SELFPAY | PROVIDERS: PCP Family Medicine; Visit Provider Nurse Practitioner Family | DX: L57.8 Other skin changes due to chronic exposure to nonionizing radiation (principal); I78.8 Other diseases of capillaries; L81.4 Other melanin hyperpigmentation; D22.39 Melanocytic nevi of other parts of face; Z08 Encounter for follow-up examination after completed treatment for malignant neoplasm; Z85.828 Personal history of other malignant neoplasm of skin; L57.0 Actinic keratosis | CPT/HCPCS: 17000; 99214 ==

== ENCOUNTER 2024-06-21 08:28 | Oncology outpatient (recurring) (ONCR) | payer OTHER, SELFPAY ==
--- NOTE | 2024-06-21 | ECG_ITS ---
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 Interpretive Statements LEXISCAN SESTAMIBI STRESS TEST Procedure: At the baseline, the blood pressure was 153/76mmHg with a heart rate of 41 bpm. The electrocardiogram showed atrial fibrillation with slow ventricular rate, normal axis with normal ST and T's. The Lexiscan was infused over a period of 20 seconds. A total of 0.4 mg of Lexiscan was infused. The stress phase was continued for a total of 5 minutes. Heart rate was at the end of stress phase was 43 bpm and a blood pressure of 127/72 mmHg. The EKG at the peak infusion revealed atrial flutter/fibrillation with slow ventricular rate with no significant ST-T wave changes. Sestamibi was injected 20 seconds after the Lexiscan infusion. Blood pressure at the end of recovery phase was 126/71 mmHg with a heart rate of 42 bpm. Conclusion: 1. Normal EKG response to Lexiscan infusion 2. No Lexiscan induced chest pain or cardiac arrhythmia. 3. Normal blood pressure and heart rate response. 4. Sestamibi/sestamibi perfusion scan pending; see separate report. Electronically Signed On 06-24-2024 10:34:23 CUSTOMER OPERATIONS ASSOCIATE by Gordon Johnson M.D. [id number]
--- NOTE | 2024-06-21 08:46 | NMCV_ITS ---
NM [place] perf SPECT r/s* [id number] Azam Mccabe Age: 79 Gender: M : 1945 Exam Date: 06/21/2024 08:46 Ordering Phys: Marii Timmons NP Technologist: RAY Atkinson Exam [facility]: [facility] Indications: CP STRESS TEST [facility] IMAGE PROTOCOL Rest/Stress 1 Lexiscan Day Radiopharmaceutical Dose (mCi) Administration Site Administered by Rest: Tc-99m 10.6 IV Pau Katt, OPERATOR HELPER Sestamibi Stress:Tc-99m 32.4 IV Pau Katt, OPERATOR HELPER Sestamibi Rest: 21-Jun-2024 60 Discovery 630 Stress: 21-Jun-2024 30 Discovery 630 0.4mg Lexiscan. Images obtained in supine and prone position. SPECT RESULTS Technical Quality: Good Raw Data Analysis: Normal Image Corrections: No attenuation or motion correction applied Summed Stress Score: 11 Summed Rest Score: 6 Summed Difference Score: 5 PERFUSION FINDINGS Large area of patchy fixed perfusion defect noted in basal to distal inferior which showed medium sized area of moderate reversibility extending into inferolateral region suggestive of old myocardial infarction surrounded by medium sized area of moderate jennifer-infarct ischemia. FUNCTIONAL RESULTS (calculated via Gated SPECT) Stress Image LV EF (%): 69 Stress EDV (mL):135 TID: 1.13 Stress ESV (mL):42 FUNCTIONAL FINDINGS: There is normal left ventricular systolic function. TID ratio is elevated which could be secondary to left ventricular hypertrophy cannot rule out multivessel coronary artery disease. IMPRESSIONS Large area of old myocardial infarction versus scarring noted in basal to distal inferior wall surrounded by medium sized area of moderate jennifer-infarct ischemia extending into inferolateral region suggestive of possible lesion in either dominant RCA or circumflex. EKG segment will be documented separately. Nataly Ramirez MD (Electronically Signed) Final Date: 21 June 2024 15:02 S
[2024-06-21 08:49] VITALS: BMI 26.3
[2024-06-21] MEDS: regadenoson 0.4 Mg/5 ml Syringe IVP (10:11)
[2024-06-21 10:37] VITALS: BP 127/72; PULSE 50
== END 2024-06-22 23:59 | disposition home or self-care (01) ==
LOC: CDL 08:29 → ONCMED 09:36
PROVIDERS: PCP Family Medicine; Visit Provider Student in an Organized Health Care Education/Training Program
DX: R00.1 Bradycardia, unspecified (principal); I25.10 Atherosclerotic heart disease of native coronary artery without angina pectoris; Z79.899 Other long term (current) drug therapy
CPT/HCPCS: 36415; 78452; 93017; 96374; A9500; J2785

== ENCOUNTER → 2024-07-19 11:28 | Outpatient (BNVA) | payer OTHER, SELFPAY | PROVIDERS: PCP Family Medicine; Visit Provider Internal Medicine | DX: I35.0 Nonrheumatic aortic (valve) stenosis (principal); I10 Essential (primary) hypertension; I48.19 Other persistent atrial fibrillation; I73.9 Peripheral vascular disease, unspecified; Z87.891 Personal history of nicotine dependence; Z79.01 Long term (current) use of anticoagulants | CPT/HCPCS: 99214 ==

== ENCOUNTER 2024-08-02 12:30 | Emergency (ER) | payer OTHER, SELFPAY ==
[2024-08-02 12:35] VITALS: BP 105/68; PULSE 77; RESP 17; TEMP 36.6; O2SAT 100; BMI 24.9
--- NOTE | 2024-08-02 12:41 | ECG_ITS ---
[facility] Date: 2024-08-02 Pat Name: Azam Mccabe Department: Room: Gender: Male [place] Hand: : 1945 Requested By: Weston Guerrero Order Number: [id number] Bessie MD: Gordon Johnson M.D. Measurements Intervals [place] Rate: 67 P: 0 [place]: 0 QRS: 79 QRSD: 91 T: 76 QT: 465 QTc: 494 Interpretive Statements ATRIAL FIBRILLATION POSSIBLE RIGHT VENTRICULAR CONDUCTION DELAY [RSR (QR) IN V1/V2] MODERATE ST DEPRESSION [0.05+ mV ST DEPRESSION] PROLONGED QT INTERVAL Compared to ECG 05/25/2024 20:54:33 ST (T wave) deviation now present Prolonged QT interval now present Incomplete right bundle-branch block no longer present T-wave abnormality no longer present Electronically Signed On 08-03-2024 19:06:21 CDT by Gordon Johnson M.D. [email or web address] [id number]
--- NOTE | 2024-08-02 16:22 | XRR_ITS ---
PROCEDURE INFORMATION: Exam: XR Chest Exam date and time: 08/02/2024 4:52 PM Age: 79 years old Clinical indication: Other: Bradycardia; Prior surgery; Surgery date: 6+ months; Surgery type: Open heart; Additional info: Bradycardia, weakness TECHNIQUE: Imaging protocol: Radiologic exam of the chest. Views: 1 view. COMPARISON: CR (CHEST, ) 08/20/2022 7:12 PM FINDINGS: Lungs: No focal consolidation. Right apical emphysematous changes. Pleural spaces: No evidence of pneumothorax. No evidence of pleural effusion. Heart/Mediastinum: Postsurgical changes of the mediastinum compatible with prior CABG/aortic valve replacement. Left atrial appendage ligation clip in place. Bones/joints: No evidence of acute osseous abnormality. XR/XR chest 1V portable [id number] IMPRESSION: 1. No acute cardiopulmonary abnormality.
--- NOTE | 2024-08-02 16:22 | CTR_ITS ---
PROCEDURE INFORMATION: Exam: CT Head Without Contrast Exam date and time: 08/02/2024 4:42 PM Age: 79 years old Clinical indication: Injury or trauma; Fall; Blunt trauma (contusions or hematomas); Additional info: Fall, head trauma on eliquis TECHNIQUE: Imaging protocol: Computed tomography of the head without contrast. Radiation optimization: All CT scans at this facility use at least one of these dose optimization techniques: automated exposure control; mA and/or kV adjustment per patient size (includes targeted exams where dose is matched to clinical indication); or iterative reconstruction. COMPARISON: MR head wo con* [id number] 04/10/2024 2:07 PM RADIATION DOSE METRICS: Total DLP (mGy-cm): 1076.05 FINDINGS: Brain: No evidence of intra-axial or extra-axial hemorrhage. No mass effect or midline shift. Mild diffuse cerebral and cerebellar atrophy. Huang-white differentiation is maintained. Basilar cisterns are patent. Cerebral ventricles: No hydrocephalus. Paranasal sinuses: The visualized paranasal sinuses are well aerated. Mastoid air cells: The visualized mastoids and middle ears are clear. Bones: Calvarium is intact. No evidence of acute fracture. Soft tissues: No gross soft tissue abnormality. CT/CT head wo con* [id number] IMPRESSION: 1. No acute intracranial abnormality.
--- NOTE | 2024-08-02 16:24 | W.ED.WEAKNES ---
HPI - Weakness General: Chief complaint: Weakness Stated complaint: recently started falling Time Seen by Provider: 08/02/24 16:13 History of Present Illness: Patient presents to the ER with complaints of weakness intermittent bradycardia and falling. Patient states he fell 3 times in the last 3 days. Patient because his heart rate has been dropping down to the 30s. And has been passing out. Patient is currently scheduled to get a pacemaker and [facility], patient did say he hit his head 1 time. Patient is on Eliquis. Patient has seen Dr. Wilson after Holter monitor that showed bradycardia, Dr. Wilson recommended a pacemaker patient said he was going to [facility] to get this placed. 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 Aortic stenosis Gout COPD (chronic obstructive pulmonary disease) Chronic anticoagulation Chronic alcohol dependence, continuous Chronic back pain Peripheral vascular disease Atrial fibrillation Surgical History History of arthroscopy of right shoulder diagnostic at time of bacteremia 09/2019 History of aortic valve replacement bioprosthetic Status post cardiac revascularization with bypass aortocoronary anastomosis of five coronary vessels History of herniorrhaphy History of orthopedic surgery Right shoulder Hx of cholecystectomy Family History Father CAD (coronary artery disease) Social History Smoking and tobacco/nicotine status: former use of tobacco/nicotine Alcohol intake: current Alcohol intake frequency: few times a week Substance/Drug Use: never Household members: spouse Marital status: Current occupational status: retired Physical Exam Const: COMMON NORMALS: no acute distress, average body habitus, patient oriented x3, no limitations, healthy appearing, alert and well nourished HENMT: COMMON NORMALS: normocephalic, hearing grossly normal bilaterally, external ears normal, Normal external nose present, moist oral mucous membranes and oropharynx normal HEAD & SCALP: normocephalic NOSE: Normal external nose present EXTERNAL EAR: Yes external ears normal Neck/C-Spine: COMMON NORMALS: full ROM, no lymphadenopathy, supple, no meningeal signs, no JVD and Thyroid normal THYROID: Thyroid normal Chest: COMMONS NORMALS: normal inspection of the chest and normal palpation of entire chest wall Resp: COMMON NORMALS: normal respiratory effort, No retractions, No use of accessory muscles and clear to auscultation bilaterally AUSCULTATION: clear to auscultation bilaterally Cardio: COMMON NORMALS: no JVD, regular rate, regular rhythm, S1 normal heart sound present, S2 normal heart sound present, No gallops present (Cardio), No clicks present (Cardio), No murmurs present (Cardio) and No rub (Cardio) RATE: regular rate RHYTHM: regular rhythm HEART SOUNDS: S1 normal heart sound present and S2 normal heart sound present GI: COMMON NORMALS: Normal to inspection, nondistended, normoactive bowel sounds present, Soft to palpation, non-tender, No hepatosplenomegaly present and no masses PALPATION: Yes Soft to palpation and Yes No hepatosplenomegaly present Neuro: COMMON NORMALS: patient oriented x3 SENSORIUM/ORIENTATION: Yes alert MENINGEAL SIGNS: Yes no meningeal signs Course Vital Signs: Vital signs: Vital Signs Temperature 97.8 F 08/02/24 12:35 Pulse Rate 66 08/02/24 19:08 Respiratory Rate 16 08/02/24 19:08 Blood Pressure 147/85 08/02/24 18:06 Pulse Oximetry 93 08/02/24 18:39 Oxygen Delivery Me thod Room Air 08/02/24 12:35 MDM - Weakness Medical Decision Making Lab work included CBC CMP serial troponins, serial EKGs, chest x-ray and head CT, all essentially benign. Patient did not have any symptomatic bradycardic episodes while he was in the hospital. We will discharge him home and have him call [facility] tomorrow morning to try to arrange for that pacemaker consult. Medical Records I reviewed the patient's medical records. Lab Data I reviewed the patient's lab results. 08/02/24 16:33 08/02/24 16:33 Radiology Impressions Chest X-Ray 08/02/24 16:22 IMPRESSION: 1. No acute cardiopulmonary abnormality. Head CT 08/02/24 16:22 IMPRESSION: 1. No acute intracranial abnormality. Laboratory Results WBC 9.33 10^3/uL (3.29-11.43) 08/02/24 16: RBC 3.77 10^6/uL (3.85-5.65) L 08/02/24 16: Hgb 11.80 g/dL (11.27-16.99) 08/02/24 16: Hct 36.7 % (37-53) L 08/02/24 16:33 MCV 97.3 fl (82-101) 08/02/24 16: MCH 31.3 pg (27-33) 08/02/24 16: MCHC 32.2 g/dL (30-55) 08/02/24 16: RDW 14.3 % (12.1-15.1) 08/02/24 16: Plt Count 167 10^3/cmm (157-399) 08/02/24 16: MPV 10.8 fL (7.4-10.4) H 08/02/24 16:33 Neut % (Auto) 63.1 % 08/02/24 16: Lymph % (Auto) 20.0 % 08/02/24 16:33 [place] % (Auto) 13.2 % 08/02/24 16: Eos % (Auto) 2.1 % 08/02/24 16: Baso % (Auto) 1.1 % 08/02/24 16: Neut # (Auto) 5.88 10^3/uL (1.8-7.7) 08/02/24 16:33 Lymph # (Auto) 1.9 10^3/uL (0.8-4.8) 08/02/24 16:33 [place] # (Auto) 1.2 10^3/uL (0.2-0.9) H 08/02/24 16:33 Eos # (Auto) 0.2 10^3/uL (0.0-0.8) 08/02/24 16:33 Baso # (Auto) 0.1 10^3/uL (0.0-0.1) 08/02/24 16:33 Nucleated RBC % (auto) 0 % 08/02/24 16:33 Nucleated RBCs # 0.0 /100WBC 08/02/24 16:33 Sodium 136 mmol/L (136-145) 08/02/24 16:33 Potassium 4.0 mmol/L (3.5-5.1) 08/02/24 16:33 Chloride 99 mmol/L (98-107) 08/02/24 16:33 Carbon Dioxide 24 mmol/L (22-29) 08/02/24 16:33 Anion Gap 17.0 (5-19) 08/02/24 16:33 BUN 26 mg/dL (8-23) H 08/02/24 16:33 Creatinine 1.1 mg/dL (0.7-1.2) 08/02/24 16:33 GFR Calculation Not Reportable 08/02/24 16:33 Glucose 181 mg/dL (65-115) H 08/02/24 16:33 Calculated Osmolality 291 mOsm/kg (285-295) 08/02/24 16:33 Calcium 9.5 mg/dL (8.5-10.5) 08/02/24 16:33 Magnesium 2.6 mg/dL (1.7-2.3) H 08/02/24 16:33 Total Bilirubin 0.8 mg/dL (0.15-1.2) 08/02/24 16:33 AST 73 U/L (0-40) H 08/02/24 16:33 ALT 31 U/L (0-41) 08/02/24 16:33 Alkaline Phosphatase 127 U/L (40-130) 08/02/24 16:33 Troponin T Baseline 31 ng/L (0-15) H 08/02/24 16:33 Troponin T 120 Minute 24.94 ng/L (0-15) H 08/02/24 19:09 Delta Troponin T -6.06 ABS# (0-10) L 08/02/24 19:09 Total Protein 7.3 g/dL (6.6-8.7) 08/02/24 16:33 Albumin 4.5 g/dL (3.5-5.2) 08/02/24 16:33 Globulin 2.8 g/dL (1.3-4.6) 08/02/24 16:33 TSH 1.04 uIU/mL (0.27-4.20) 08/02/24 16:33 All radiology interpretation(s) finalized by discharge Discharge Plan Discharge Patient Disposition: Home Clinical Impression: Bradycardia, unspecified, Episode of generalized weakness Condition: Stable Prescriptions: No Action magnesium oxide 400 mg (241.3 mg magnesium) tablet 400 mg PO DAILY atorvastatin 80 mg tablet 40 mg PO QPM Eliquis 5 mg tablet 5 mg PO BID Qty: 180 3RF amoxicillin 500 mg capsule 500 mg PO BID 30 Days Qty: 60 3RF sennosides [senna] 8.6 mg Tablet 17.2 mg PO BID 30 Days Qty: 120 0RF allopurinol 100 mg Tablet 100 mg PO DAILY 30 Days Qty: 30 0RF cholecalciferol (vitamin D3) 50 mcg (2,000 unit) Tablet 50 mcg PO DAILY Qty: 30 0RF omeprazole 40 mg Capsule,Delayed Release(Dr/Ec) 40 mg PO DAILY aspirin [Aspir-81] 81 mg Tablet,Delayed Release (Dr/Ec) 81 mg PO DAILY metoprolol tartrate 25 mg Tablet 12.5 mg PO BID acetaminophen 500 mg Tablet 1,000 mg PO Q6H PRN (Reason: Pain) multivitamin [One Daily Multivitamin] Tablet 1 tab PO DAILY sertraline 100 mg Tablet 150 mg PO QAM melatonin 3 mg Tablet 3 - 6 mg PO BEDTIME metformin 500 mg Tablet Extended Release 24hr 1,000 mg PO BID Jardiance 25 mg Tablet 25 mg PO DAILY ammonium lactate 12 % Lotion 1 applic TOPICAL BID PRN (Reason: Dry Skin) clotrimazole 1 % Cream 1 applic TOPICAL BID PRN (Reason: Skin Irritation) meclizine 25 mg Tablet,Chewable 25 mg PO TID PRN (Reason: Vertigo) potassium chloride 20 mEq Tablet Extended Release See Rx Instructions .ROUTE .COMPLEX Rx Instructions: take one half tablet by mouth twice weekly omega 4-iob-xne-fish oil [Fish Oil] 1,000 (120-180) mg Capsule 2 cap PO TID tamsulosin [Flomax] 0.4 mg capsule 0.4 mg PO QPM Januvia 100 mg tablet 100 mg PO DAILY amlodipine 5 mg Tablet 5 mg PO DAILY Qty: 30 0RF Discharge Orders: Discharge ED (Routine); Ordered 08/02/24 Ordered By: Weston Guerrero Referrals: Kaila Mohr MD [Primary Care Provider] - 1 week Patient Instructions: Bradycardia (ED), Weakness (Generalized) Activity Restrictions/Additional Instructions: Your evaluation ER did not show any acute cause of your symptomatology. You have already been referred to [facility] for pacemaker. Please call their office first thing in the morning to try to arrange an appointment. Thank you for choosing [facility] for your healthcare needs today. Please realize that you were seen in the emergency department and that we are providing you with an emergency medical screening exam and this may not be a complete and all exclusive of all testing and/or medical workup we may need to determine your element or severity of your illness. It is very important that you follow-up as instructed with your primary care provider or specialist for the additional evaluation and to discuss your medical treatment plan. You may return to the emergency department should you have concerns or if your condition changes or worsens in any way. Print Language: Filipino Coding Level of Care Code ED Fagot Maker for Chg Fwd Related Data Home Medications ?Medication ?Instructions ?Recorded ?Confirmed atorvastatin 80 mg tablet 40 mg PO QPM 04/20/21 08/02/24 magnesium oxide 400 mg (241.3 mg 400 mg PO DAILY 04/20/21 08/02/24 magnesium) tablet acetaminophen 500 mg tablet 1,000 mg PO Q6H PRN Pain 08/25/22 08/02/24 multivitamin (One Daily 1 tab PO DAILY 08/25/22 08/02/24 Multivitamin tablet) melatonin 3 mg tablet 3 - 6 mg PO BEDTIME 09/06/22 08/02/24 metformin 500 mg tablet,extended 1,000 mg PO BID 09/06/22 08/02/24 release 24hr (osmotic) sertraline 100 mg tablet 150 mg PO QAM depression 09/06/22 08/02/24 ammonium lactate 12 % lotion 1 applic topical BID PRN Dry Skin 04/09/24 08/02/24 clotrimazole 1 % topical cream 1 applic topical BID PRN Skin 04/09/24 08/02/24 Irritation empagliflozin 25 mg tablet 25 mg PO DAILY 04/09/24 08/02/24 (Jardiance) meclizine 25 mg chewable tablet 25 mg PO TID PRN Vertigo 04/09/24 08/02/24 Held on 05/27/24. Instructions: see pcp omega 6-vat-fwa-fish oil 1,000 mg 2 cap PO TID 04/09/24 08/02/24 (120 mg-180 mg) capsule (Fish Oil) potassium chloride 20 mEq See Rx Instructions .Route .COMPLEX 04/09/24 08/02/24 tablet,extended release tamsulosin 0.4 mg capsule (Flomax) 0.4 mg PO QPM 04/09/24 08/02/24 sitagliptin phosphate 100 mg 100 mg PO DAILY 05/25/24 08/02/24 tablet (Januvia) aspirin 81 mg tablet,delayed 81 mg PO DAILY 08/02/24 08/02/24 release metoprolol tartrate 25 mg tablet 12.5 mg PO BID 08/02/24 08/02/24 omeprazole 40 mg capsule,delayed 40 mg PO DAILY 08/02/24 08/02/24 release Previous Rx's ?Medication ?Instructions ?Recorded allopurinol 100 mg tablet 100 mg PO DAILY 30 days #30 tabs 10/10/19 cholecalciferol (vitamin D3) 50 50 mcg PO DAILY #30 tabs 10/10/19 mcg (2,000 unit) tablet sennosides 8.6 mg tablet (senna) 17.2 mg (2 x 8.6 mg) PO BID 30 10/10/19 days #120 tabs apixaban 5 mg tablet (Eliquis) 5 mg PO BID #180 tabs 11/01/22 amlodipine 5 mg tablet 5 mg PO DAILY #30 tabs 05/27/24 amoxicillin 500 mg capsule 500 mg PO BID chronic supression 06/19/24 30 days #60 caps Allergies Allergy/AdvReac Type Severity Reaction Status Date / Time Penicillins Allergy Unknown Unknown Verified 07/19/24 13:10 niacin Allergy unknown Verified 07/19/24 13:10
--- NOTE | 2024-08-02 16:39 | PC.PHAR ---
[facility]no response yet. Pt did go over his current meds.
[2024-08-02 16:44] LABS: Basophils # 0.1 10^3/uL (0.0-0.1); Basophils % 1.1 %; Eosinophils # 0.2 10^3/uL (0.0-0.8); Eosinophils % 2.1 %; Hematocrit 36.7 % (37-53); Lymphocytes # 1.9 10^3/uL (0.8-4.8); Mean Corpuscular HGB Conc 32.2 g/dL (30-55); Mean Corpuscular Hemoglobin 31.3 pg (27-33); Mean Corpuscular Volume 97.3 fl (82-101); Mean Platelet Volume 10.8 fL (7.4-10.4); Monocytes # 1.2 10^3/uL (0.2-0.9); Monocytes % 13.2 %; Neutrophils # 5.88 10^3/uL (1.8-7.7); Neutrophils % 63.1 %; Nucleated Red Blood Cells % 0 %; Platelet Count 167 10^3/cmm (157-399); Red Blood Count 3.77 10^6/uL (3.85-5.65); Red Cell Distribution Width 14.3 % (12.1-15.1); White Blood Count 9.33 10^3/uL (3.29-11.43)
[2024-08-02 17:26] LABS: Troponin(5th) Baseline 31 ng/L (0-15)
[2024-08-02 17:34] LABS: Alanine Aminotransferase 31 U/L (0-41); Albumin Level 4.5 g/dL (3.5-5.2); Alkaline Phosphatase 127 U/L (40-130); Aspartate Amino Transferase 73 U/L (0-40); Blood Urea Nitrogen 26 mg/dL (8-23); Calcium 9.5 mg/dL (8.5-10.5); Carbon Dioxide 24 mmol/L (22-29); Chloride 99 mmol/L (98-107); Creatinine Clr Calc Pharmacy 62.5827; Globulin 2.8 g/dL (1.3-4.6); Glucose 181 mg/dL (65-115); Magnesium 2.6 mg/dL (1.7-2.3); Osmolality Calculated 291 mOsm/kg (285-295); Sodium 136 mmol/L (136-145); Thyroid Stimulating Hormone 1.04 uIU/mL (0.27-4.20); Total Bilirubin 0.8 mg/dL (0.15-1.2); Total Protein 7.3 g/dL (6.6-8.7)
[2024-08-02 18:06] VITALS: BP 147/85; PULSE 63; RESP 18; O2SAT 93
--- NOTE | 2024-08-02 18:23 | ECG_ITS ---
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 Measurements Intervals Temple Rate: 65 P: 0 DE: 0 QRS: -20 QRSD: 93 T: -14 QT: 442 QTc: 460 Interpretive Statements ATRIAL FLUTTER POSSIBLE RIGHT VENTRICULAR CONDUCTION DELAY [RSR (QR) IN V1/V2] VOLTAGE CRITERIA FOR LVH [MEETS CRITERIA IN ONE OF: R(aVL), S(V1), R(V5), R(V5/V6)+S(V1)] INFERIOR MYOCARDIAL INFARCTION , OF INDETERMINATE AGE [40+ ms Q WAVE AND/OR ST/T ABNORMALITY IN II/aVF] Compared to ECG 08/02/2024 12:41:50 Left ventricular hypertrophy now present Myocardial infarct finding now present Atrial fibrillation no longer present ST (T wave) deviation no longer present Prolonged QT interval no longer present Electronically Signed On 08-03-2024 19:21:28 CDT by Gordon Johnson M.D. [email or web address]
[2024-08-02 18:39] VITALS: PULSE 66; RESP 16; O2SAT 93
[2024-08-02 19:08] VITALS: PULSE 66; RESP 16
[2024-08-02 19:29] LABS: Troponin 5 2HR 24.94 ng/L (0-15)
[2024-08-02 19:30] LABS: Troponin 5 2HR Delta -6.06 ABS# (0-10)
== END 2024-08-02 20:47 | disposition home or self-care (01) ==
PROVIDERS: Emergency Provider Emergency Medicine; PCP Family Medicine
DX: R00.1 Bradycardia, unspecified (principal); R53.1 Weakness; Z79.01 Long term (current) use of anticoagulants; Z79.82 Long term (current) use of aspirin; Z79.84 Long term (current) use of oral hypoglycemic drugs; Z87.891 Personal history of nicotine dependence; J44.9 Chronic obstructive pulmonary disease, unspecified; E11.42 Type 2 diabetes mellitus with diabetic polyneuropathy; I10 Essential (primary) hypertension
CPT/HCPCS: 36415; 70450; 71045; 80053; 83735; 84443; 84484; 85025; 93005; 99285

== ENCOUNTER → 2024-09-11 09:36 | Outpatient (BNVA) | payer OTHER, SELFPAY | PROVIDERS: PCP Family Medicine; Visit Provider Student in an Organized Health Care Education/Training Program | DX: I38 Endocarditis, valve unspecified (principal); Z95.2 Presence of prosthetic heart valve; A49.1 Streptococcal infection, unspecified site; R00.1 Bradycardia, unspecified | CPT/HCPCS: 36415; 80053; 85025; 85651; 86140; 87040; 99215 ==

== ENCOUNTER → 2024-10-09 13:19 | Outpatient (BNVA) | payer OTHER, SELFPAY | PROVIDERS: PCP Family Medicine; Visit Provider Nurse Practitioner Family | DX: L57.8 Other skin changes due to chronic exposure to nonionizing radiation (principal); L81.4 Other melanin hyperpigmentation; I78.8 Other diseases of capillaries; D22.39 Melanocytic nevi of other parts of face; Z08 Encounter for follow-up examination after completed treatment for malignant neoplasm; Z85.828 Personal history of other malignant neoplasm of skin; L57.0 Actinic keratosis | CPT/HCPCS: 17000; 99213 ==

== ENCOUNTER → 2024-12-04 11:13 | Outpatient (BNVA) | payer OTHER, SELFPAY | PROVIDERS: PCP Family Medicine; Visit Provider Student in an Organized Health Care Education/Training Program | DX: I38 Endocarditis, valve unspecified (principal); A49.1 Streptococcal infection, unspecified site; Z95.2 Presence of prosthetic heart valve; R00.1 Bradycardia, unspecified; Z79.2 Long term (current) use of antibiotics | CPT/HCPCS: 99214 ==

== ENCOUNTER 2024-12-13 06:42 | Day surgery (SDC) | payer OTHER, SELFPAY ==
[2024-12-13 07:01] VITALS: BP 95/63; PULSE 65; RESP 16; TEMP 36.1; O2SAT 95
[2024-12-13 07:02] VITALS: BMI 3593.1
--- NOTE | 2024-12-13 07:37 | ANES.PREANE2 ---
Pre-Anesthetic Assessment Height/Weight: Height 15.24 cm Weight 83.461 kg Temp Pulse Resp BP Pulse Ox O2 Del Method 97.0 F L 65 16 95/63 95 Room Air 12/13/24 07:01 12/13/24 07:01 12/13/24 07:01 12/13/24 07:01 12/13/24 07:01 12/13/24 07:01 Preop Diagnosis: hx afib - preprocedural exam Operation Date: 12/13/24 08:00 Proposed Procedures p MARINA(Not Applicable) - Gordon Johnson M.D Familial anesthetic complications: denies Was Beta Dylon taken within 24 hours: Yes Was Clonidine taken within 24 hours: N/A Last intake: Intake Last Liquid Date 12/12/24 Last Liquid Time 06:00 Last Solid Date 12/12/24 Last Solid Time 18:30 Social Alcohol (ETOH dependency) and Tobacco 1-2 PPD x 30 years - quit 18 years ago pack(s) per day Exam alert, oriented x 3 and clear to auscultation bilaterally Airway Submandibular: within normal limits Cervical ROM: within normal limits Mallampati: Class I Comments: Comments: intact History/ROS No significant history except as noted Pulmonary Chronic Obstructive Pulmonary Disease (uses inhaler prn), Exertional Dyspnea and Paroxysmal Nocturnal Dyspnea CV/HEM Atrial Fibrillation, Arrythmia, Coronary Artery Disease, Hypertension, Paroxysmal Nocturnal Dyspnea and Peripheral Vascular Disease (AAA, AVR - aortic stenosis, CABG) hx endocarditis - resolved, anticoag therapy currently None reported Hepatic None reported GI None reported Metabolic Diabetes Mellitus (DM2 - 145 accu check 12/13/24) Musc/skel Lower Back Pain, Osteoarthritis/DJD and Weakness (foot drop) Neuropsych Neuropathy (UE/LE) [facility] Anesthetic Plan ASA status: 4 Anesthesia: MAC Risk of > 500 ml blood loss (7ml/kg in children): No Medications/Allergies Home Medications ?Medication ?Instructions ?Recorded ?Confirmed ?Last Taken ?Type allopurinol 100 mg tablet 100 mg PO DAILY 30 days #30 tabs 10/10/19 12/10/24 12/10/24 Rx cholecalciferol (vitamin D3) 50 50 mcg PO DAILY #30 tabs 10/10/19 12/10/24 12/10/24 Rx mcg (2,000 unit) tablet atorvastatin 80 mg tablet 40 mg PO QPM 04/20/21 12/10/24 12/09/24 History magnesium oxide 400 mg (241.3 mg 400 mg PO DAILY 04/20/21 12/10/24 12/10/24 History magnesium) tablet acetaminophen 500 mg tablet 1,000 mg PO Q6H PRN Pain 08/25/22 12/10/24 Unknown History multivitamin (One Daily 1 tab PO DAILY 08/25/22 12/10/24 12/10/24 History Multivitamin tablet) melatonin 3 mg tablet 3 - 6 mg PO BEDTIME 09/06/22 12/10/24 12/09/24 History metformin 500 mg tablet,extended 1,000 mg PO BID 09/06/22 12/10/24 12/10/24 History release 24hr (osmotic) sertraline 100 mg tablet 150 mg PO QAM depression 09/06/22 12/10/24 12/10/24 History apixaban 5 mg tablet (Eliquis) 5 mg PO BID #180 tabs 11/01/22 12/10/24 12/10/24 Rx ammonium lactate 12 % lotion 1 applic topical BID PRN Dry Skin 04/09/24 12/10/24 Unknown History clotrimazole 1 % topical cream 1 applic topical BID PRN Skin 04/09/24 12/10/24 Unknown History Irritation empagliflozin 25 mg tablet 25 mg PO DAILY 04/09/24 12/10/24 12/10/24 History (Jardiance) meclizine 25 mg chewable tablet 25 mg PO TID PRN Vertigo 04/09/24 12/10/24 05/25/24 History Held on 05/27/24. Instructions: see pcp omega 2-ych-spv-fish oil 1,000 mg 2 cap PO TID 04/09/24 12/10/24 12/10/24 History (120 mg-180 mg) capsule (Fish Oil) potassium chloride 20 mEq See Rx Instructions .Route .COMPLEX 04/09/24 12/10/24 12/10/24 History tablet,extended release tamsulosin 0.4 mg capsule (Flomax) 0.4 mg PO QPM 04/09/24 12/10/24 12/09/24 History sitagliptin phosphate 100 mg 100 mg PO DAILY 05/25/24 12/10/24 12/10/24 History tablet (Januvia) amlodipine 5 mg tablet 5 mg PO DAILY #30 tabs 05/27/24 12/10/24 12/13/24 Rx aspirin 81 mg tablet,delayed 81 mg PO DAILY 08/02/24 12/10/24 12/10/24 History release metoprolol tartrate 25 mg tablet 12.5 mg PO BID 08/02/24 12/10/24 12/13/24 History omeprazole 40 mg capsule,delayed 40 mg PO DAILY 08/02/24 12/10/24 12/10/24 History release amoxicillin 500 mg capsule 500 mg PO BID chronic supression 09/11/24 12/10/24 12/10/24 Rx 30 days #60 caps sennosides 8.6 mg tablet (senna) 17.2 mg PO BID PRN Constipation 12/10/24 12/10/24 12/10/24 History Allergies Allergy/AdvReac Type Severity Reaction Status Date / Time Penicillins Allergy Unknown Unknown Verified 12/10/24 09:36 niacin Allergy unknown Verified 12/10/24 09:36 Current Medications Generic Name Dose Route Start Last Admin Trade Name Freq PRN Reason Stop Dose Admin Sodium Chloride 1,000 mls @ 15 mls/hr 12/13/24 06:53 12/13/24 07:35 Sodium Chloride 0.9% IV 12/14/24 06:52 15 mls/hr .Q24H PRN Administration COLONOSCOPY FLUIDS PFSH Anesthesia Medical History (Updated 12/05/24 @ 11:24 by Faye Feliciano MD) Streptococcus bovis infection 4/4 bottles of blood cx (09/30) positive for Strep bovis in 09/2019, treated with [facility] IV antibiotics Abdominal aortic aneurysm Hypertension Diabetes mellitus Endocarditis Atherosclerosis of coronary artery Peripheral neuropathy Footdrop Lumbar stenosis with neurogenic 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 Aortic stenosis Gout COPD (chronic obstructive pulmonary disease) Chronic anticoagulation Chronic alcohol dependence, continuous Chronic back pain Peripheral vascular disease Atrial fibrillation Surgical History History of aortic valve replacement bioprosthetic History of arthroscopy of right shoulder diagnostic at time of bacteremia 09/2019 Status post cardiac revascularization with bypass aortocoronary anastomosis of five coronary vessels History of herniorrhaphy History of orthopedic surgery Right shoulder Hx of cholecystectomy Family History Father CAD (coronary artery disease) Social History Smoking and tobacco/nicotine status: former use of tobacco/nicotine Alcohol intake: current Alcohol intake frequency: few times a week Substance/Drug Use: never Household members: spouse Marital status: Current occupational status: retired Data Anesthesia Cardiac Studies: Echocardiogram 04/09/24 Echocardiogram Limited Views 05/25/24 Echocardiogram Ultrasound 07/11/19 Transesophageal Echocardiogram 04/13/24 Sestamibi Stress Test (Cardiology) 06/21/24 Cardiac Event Monitor 05/31/24
--- NOTE | 2024-12-13 08:09 | W.PM.OPSFHP ---
Same Day Surgery H&P Indication for Procedure/HPI DATE OF PROCEDURE: December 13, 2024 CHIEF COMPLAINT/INDICATIONFOR SURGICAL PROCEDURE: MARINA for ruling out sinus of valsalva to left atrial communication PREOP DIAGNOSIS: MARINA for ruling out sinus of valsalva to left atrial communication PLANNED PROCEDURE: Operation Date: 12/13/24 08:00 Proposed Procedures p MARINA(Not Applicable) - Gordon Johnson M.D 79-year-old man with past medical history of CAD, bioprosthetic aortic valve who was seen by cardiology at an outside hospital. When he had a echocardiogram. 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 Patient feels well. Has dyspnea on exertion Medications/Allergies* Home Medications ?Medication ?Instructions ?Recorded ?Confirmed ?Type atorvastatin 80 mg tablet 40 mg PO QPM 04/20/21 12/10/24 History magnesium oxide 400 mg (241.3 mg 400 mg PO DAILY 04/20/21 12/10/24 History magnesium) tablet acetaminophen 500 mg tablet 1,000 mg PO Q6H PRN Pain 08/25/22 12/10/24 History multivitamin (One Daily 1 tab PO DAILY 08/25/22 12/10/24 History Multivitamin tablet) melatonin 3 mg tablet 3 - 6 mg PO BEDTIME 09/06/22 12/10/24 History metformin 500 mg tablet,extended 1,000 mg PO BID 09/06/22 12/10/24 History release 24hr (osmotic) sertraline 100 mg tablet 150 mg PO QAM depression 09/06/22 12/10/24 History ammonium lactate 12 % lotion 1 applic topical BID PRN Dry Skin 04/09/24 12/10/24 History clotrimazole 1 % topical cream 1 applic topical BID PRN Skin 04/09/24 12/10/24 History Irritation empagliflozin 25 mg tablet 25 mg PO DAILY 04/09/24 12/10/24 History (Jardiance) meclizine 25 mg chewable tablet 25 mg PO TID PRN Vertigo 04/09/24 12/10/24 History Held on 05/27/24. Instructions: see pcp omega 7-szr-url-fish oil 1,000 mg 2 cap PO TID 04/09/24 12/10/24 History (120 mg-180 mg) capsule (Fish Oil) potassium chloride 20 mEq See Rx Instructions .Route .COMPLEX 04/09/24 12/10/24 History tablet,extended release tamsulosin 0.4 mg capsule (Flomax) 0.4 mg PO QPM 04/09/24 12/10/24 History sitagliptin phosphate 100 mg 100 mg PO DAILY 05/25/24 12/10/24 History tablet (Januvia) aspirin 81 mg tablet,delayed 81 mg PO DAILY 08/02/24 12/10/24 History release metoprolol tartrate 25 mg tablet 12.5 mg PO BID 08/02/24 12/10/24 History omeprazole 40 mg capsule,delayed 40 mg PO DAILY 08/02/24 12/10/24 History release sennosides 8.6 mg tablet (senna) 17.2 mg PO BID PRN Constipation 12/10/24 12/10/24 History Allergies/Adverse Reactions Allergy/AdvReac Type Severity Reaction Status Date / Time Penicillins Allergy Unknown Unknown Verified 12/10/24 09:36 niacin Allergy unknown Verified 12/10/24 09:36 Current Medications: Generic Name Dose Route Start Last Admin Trade Name Freq PRN Reason Stop Dose Admin Sodium Chloride 1,000 mls @ 15 mls/hr 12/13/24 06:53 12/13/24 07:35 Sodium Chloride 0.9% IV 12/14/24 06:52 15 mls/hr .Q24H PRN Administration COLONOSCOPY FLUIDS Pertinent History/Comorbid Conditions* Medical History (Updated 12/05/24 @ 11:24 by Faye Feliciano MD) Streptococcus bovis infection 4/4 bottles of blood cx (09/30) positive for Strep bovis in 09/2019, treated with rn hemodialysis IV antibiotics Abdominal aortic aneurysm Hypertension Diabetes mellitus Endocarditis Atherosclerosis of coronary artery Peripheral neuropathy Footdrop Lumbar stenosis with neurogenic 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 Aortic stenosis Gout COPD (chronic obstructive pulmonary disease) Chronic anticoagulation Chronic alcohol dependence, continuous Chronic back pain Peripheral vascular disease Atrial fibrillation Surgical History (Updated 09/11/24 @ 16:40 by Faye Feliciano MD) History of aortic valve replacement bioprosthetic History of arthroscopy of right shoulder diagnostic at time of bacteremia 09/2019 Status post cardiac revascularization with bypass aortocoronary anastomosis of five coronary vessels History of herniorrhaphy History of orthopedic surgery Right shoulder Hx of cholecystectomy Family History (Updated 07/11/19 @ 17:01 by Teresa Vargas DO) CAD (coronary artery disease) Father Social History Smoking and tobacco/nicotine status: former use of tobacco/nicotine Alcohol intake: current Alcohol intake frequency: few times a week Substance/Drug Use: never Household members: spouse Marital status: Current occupational status: retired Pertinent Exam Findings alert and oriented x 3 Conscious Sedation Assessment Anesthesia team available for sedation Recommendations Risks and benefits of procedure reviewed and Patient/family agree to proceed Surgery/Procedure today (Transesophageal echocardiogram) Coding Level of Care Code Acute Code for Chg Fwd
--- NOTE | 2024-12-13 08:11 | USCV_ITS ---
Azam Fritz Age: 79 Gender: M : 1945 Exam Date: 12/13/2024 08:15 Ordering Phys: Gordon Johnson M.D ([email or web address]) Technologist: [place] [facility] [place]: ao pros BP: / HR: Rhythm: Sinus Technical Quality: Adequate MEASUREMENTS (Male / Female) Normal Values Medications Per anesthesia team. Complications None Proc. Components After anesthesia team sedated patient, we proceeded with advancing the MARINA probe. FINDINGS Left Ventricle Left ventricle is normal in size. LV systolic function is normal with EF 55 to 60%. No regional wall motion abnormalities are seen. Right Ventricle Normal in size and function Right Atrium Grossly normal Left Atrium Dilated. Smoke seen LA Appendage No left atrial appendage thrombus seen. IA Septum Grossly normal. No evidence of intracardiac shunting. Mitral Valve Moderate mitral annular calcification. Aortic Valve Bioprosthetic aortic valve. Sinus of Valsalva dilated. There is color flow into the sinus of valsalva however no communication is seen between sinus of Valsalva and left atrium. Mild aortic regurgitation. Tricuspid Valve Grossly normal Pulmonic Valve Not well visualized Pericardium Grossly normal Aorta Atherosclerotic plaque seen. CONCLUSIONS LV systolic function is normal with EF of 55-60%. Left atrium is dilated. Smoke is seen No left atrial appendage thrombus seen. Bioprosthetic aortic valve. Sinus of Valsalva dilated. There is color flow into the sinus of valsalva however no communication is seen between sinus of Valsalva and left atrium. Mild aortic regurgitation. Atherosclerotic plaques seen in the aorta. Gordon Johnson MD (Electronically Signed) Final Date: 16 December 2024 14:12 S
[2024-12-13 08:35] VITALS: BP 81/49; PULSE 69; RESP 10; TEMP 36.3; O2SAT 92
[2024-12-13 08:51] VITALS: BP 124/67; PULSE 48; RESP 16; O2SAT 95
[2024-12-13 09:02] VITALS: BP 117/71; PULSE 54; RESP 18; O2SAT 95
[2024-12-13 09:16] VITALS: BP 127/65; PULSE 49; RESP 18; O2SAT 94
--- NOTE | 2024-12-13 09:25 | ANE.PACU2 ---
Inpatient post-anesthesia follow up: Airway intact: Yes Vital signs: Temperature 97.4 F Pulse Rate 49 Respiratory Rate 18 Blood Pressure 127/65 Pulse Oximetry 94 Oxygen Delivery Me thod Room Air Oxygen Flow Rate Fraction of Inspir ed Oxygen Hydration adequate: Yes Nausea and vomiting: No Pain level: 1 Mental status: Baseline
== END 2024-12-13 09:25 | disposition home or self-care (01) ==
PROVIDERS: PCP Family Medicine; Visit Provider Internal Medicine
PROC: (CPT 93312; principal; 2024-12-13 08:00)
DX: I48.91 Unspecified atrial fibrillation (principal); I70.0 Atherosclerosis of aorta; I35.1 Nonrheumatic aortic (valve) insufficiency; J44.9 Chronic obstructive pulmonary disease, unspecified; I25.10 Atherosclerotic heart disease of native coronary artery without angina pectoris; E11.40 Type 2 diabetes mellitus with diabetic neuropathy, unspecified; I10 Essential (primary) hypertension; M10.9 Gout, unspecified; E11.51 Type 2 diabetes mellitus with diabetic peripheral angiopathy without gangrene; Z95.1 Presence of aortocoronary bypass graft; Z79.899 Other long term (current) drug therapy; Z79.84 Long term (current) use of oral hypoglycemic drugs; Z79.82 Long term (current) use of aspirin; Z79.01 Long term (current) use of anticoagulants; Z88.0 Allergy status to penicillin; Z88.8 Allergy status to other drugs, medicaments and biological substances; Z87.891 Personal history of nicotine dependence
CPT/HCPCS: 36416; 82962; 93312; 93320; 93325; J2371; J2704; J7030

== ENCOUNTER 2024-12-19 10:15 | Emergency (ER) | payer OTHER, SELFPAY ==
--- OUTSIDE RECORDS SUMMARY | 2024-09-12 08:45 | XMS_ITS ---
Author Organization [facility] Address [address] [place] [address] Care Team Providers Care Musical Instruments Assembler Name Role Phone Kaila Guerra MD Primary Care Provider UnavailSahil Parra Unavailable [phone] [place], [place] Unavailable Unavailable Encounters Encounter Location Date Provider Diagnosis [facility] [address] [place] [id number] 09/12/2024 Sahil Weinstein Plan Of Treatment Next Appt Details Provider Name:Darryl hawk, 08/15/2025 10:45:00 AM, [address] [place] [address] [place], [phone], Provider Name:Qamar ortiz, 08/15/2025 11:30:00 AM, [address] [place] [address] [place], [address], Progress Notes * Azam BARTH DDOB:1945 (79 yo M)Acc No.[id number]:09/12/2024 Patient: Azam Enciso Provider: Compa Weinstein MD :1945 A ge:79 Y S ex:Male Date:09/12/2024 Address:[address] [place] [phone], [place] [id number] Pcp:Kaila Guerra MD Check In:01:44 PM CSTCheck O ut:01:47 PM SENIOR PHYSICAL THERAPIST Billing Information: * Procedure Codes: * Electronic signature of Michael Weinstein MD on 12/19/2024 at 10:23 AM CDT Sign off status: Pending * Provider: Compa Weinstein MD Date: 09/12/2024 Generated for Bria peña/Deondre/eTransmitting on: 0 12/19/2024 10:23 AM CDT
--- OUTSIDE RECORDS SUMMARY | 2024-09-21 06:00 | XMS_ITS ---
Author Organization [facility] Address [address] [place] [address] Care Team Providers Care Clay Worker Name Role Phone Kaila Guerra MD Primary Care Provider Unavaila Sahil Cavazos Unavailable [phone] [place], [place] Unavailable Unavailable REASON FOR VISIT F/U DISCUSS ABN ECHO // WT Medications Medication SIG (Take, Route, Frequency, Duration) Notes Start Date End Date Status Sodium Fluoride 1.1 % Paste as directed Dental Active SITagliptin 100 MG Tablet 1 tablet Orall y Once a day Active Sertraline HCl 150 MG Capsule 1 capsule Orally Once a day Active Sennosides 8.6 MG Tablet 2 tablets Orall y twice a day 08/14/2024 Active Tamsulosin HCl 0.4 MG Capsule 1 capsule Orally Once a day 08/14/2024 Active [place] 3 1000 MG Capsule 2 capsules Orall y Three times a day 08/14/2024 Active Multivitamin - Tablet 1 tablet Orally On ce a day Active Prazosin HCl 2 MG Capsule 1 capsule at b edtime Orally Once a day Active Potassium Chloride ER 20 MEQ Tablet Extended Release 1/2 tablet with food Orally twice weekly 08/14/2024 Active Pantoprazole Sodium 40 MG Tablet Delayed Release 1 tablet 1/2 to 1 hour before morning meal Orally Once a day Active Meclizine HCl 25 MG Tablet 1 tablet as needed Orally three times a day 08/14/2024 Active Magnesium Oxide 400 MG Tablet 1 tablet with food Orally Once a day Active Imiquimod 5 % Cream 1 application at bedtime, leave on for 8 hours then wash off Externally Three times a Week Active metFORMIN HCl 1000 MG Tablet 1 tablet with a meal Orally twice a day 08/14/2024 Active Melatonin 3 MG Tablet 1-2 tablets at bed time Orally Once a day 08/14/2024 Active Cephalexin 250 MG Capsule 1 capsule Oral ly Once a day Active Hydrophilic - Ointment as directed Externally Active Furosemide 20 MG Tablet 1 tablet Orally Once a day Active Empagliflozin 25 MG Tablet 1 tablet Orally Once a day Active Clotrimazole 1 % Cream 1 application Externally Twice a day 08/14/2024 Active Amoxicillin 500 MG Capsule 1 capsule Orally every 8 hrs Active Ammonium Lactate 12 % Lotion 1 application Externally Twice a day As needed 08/14/2024 Active Atorvastatin Calcium 40 MG Tablet 1 tablet Orally Once a day Active Aspirin 81 MG Tablet Delayed Release 1 tablet Orally Once a day Active Apixaban 5 MG Tablet 1 tablet Orally twi ce a day 08/14/2024 Active Dulcolax 5 MG Tablet Delayed Release 2 tablets as needed Orally Once a day 08/14/2024 Not-Taking Dulcolax 10 MG Suppository 1 suppository as needed Rectal Once a day 08/14/2024 Not-Taking Allopurinol 100 MG Tablet 1 tablet Orall y Once a day Active Acetaminophen Extra Strength 500 MG Tablet 2 tablets as needed Orally every 6 hrs 08/14/2024 Active amLODIPine Besylate 5 MG Tablet 1 tablet Orally Once a day Active Vitamin D3 50 MCG (1999) Capsule 1 capsule Orally Once a day Active Encounters Encounter Location Date Provider Diagnosis [facility] [address] [place] [phone] 09/21/2024 Sahil Weinstein Plan Of Treatment Next Appt Details Provider Name:Darryl hawk, 08/15/2025 10:45:00 AM, [address] [place] [address] [place], [place], [address], Provider Name:Qamar ortiz, 08/15/2025 11:30:00 AM, [address] [place] [address] [place], [place], [address], Progress Notes * Azam BARTH DDOB:1945 (79 yo M)Acc No.[id number]:09/21/2024 Progress Notes Patient: Azam Enciso Provider: Compa Weinstein MD :1945 A ge:79 Y S ex:Male Date:09/21/2024 Address:[address] [place], [place] [id number] Pcp:Kaila Guerra MD Subjective: * Chief Complaints: * F /U DISCUSS ABN ECHO // WT * Surgical History: Open Heart surgery 2022 Double Hernia Surgery R shoulder rotator cuff surgery Sepsis * Hospitalization/Major Diagno stic Procedure: [facility] - Low heart[facility] - S[facility] - Pneumonia * Medications: T akingAcetaminophen Extra Strength 500 MG Tablet 2 tablets as needed Orally every 6 hrs Allopurinol 100 MG Tablet 1 tablet Orally Once a day amLODIPine Besylate 5 MG Tablet 1 tablet Orally Once a day Ammonium Lactate 12 % Lotion 1 application Externally Twice a day As neededAmoxicillin 500 MG Capsule 1 capsule Orally every 8 hrs Apixaban 5 MG Tablet 1 tablet Orally twice a day Aspirin 81 MG Tablet Delayed Release 1 tablet Orally Once a day Atorvastatin Calcium 40 MG Tablet 1 tablet Orally Once a day Cephalexin 250 MG Capsule 1 capsule Orally Once a day Clotrimazole 1 % Cream 1 application Externally Twice a day Empagliflozin 25 MG Tablet 1 tablet Orally Once a day Furosemide 20 MG Tablet 1 tablet Orally Once a day Hydrophilic - Ointment as directed Externally Imiquimod 5 % Cream 1 application at bedtime, leave on for 8 hours then wash off Externally Three times a Week Magnesium Oxide 400 MG Tablet 1 tablet with food Orally Once a day Meclizine HCl 25 MG Tablet 1 tablet as needed Orally three times a day Melatonin 3 MG Tablet 1-2 tablets at bedtime Orally Once a day metFORMIN HCl 1000 MG Tablet 1 tablet with a meal Orally twice a day Multivitamin - Tablet 1 tablet Orally Once a day [place] 3 1000 MG Capsule 2 capsules Orally Three times a day Pantoprazole Sodium 40 MG Tablet Delayed Release 1 tablet 1/2 to 1 hour before morning meal Orally Once a day Potassium Chloride ER 20 MEQ Tablet Extended Release 1/2 tablet with food Orally twice weekly Prazosin HCl 2 MG Capsule 1 capsule at bedtime Orally Once a day Sennosides 8.6 MG Tablet 2 tablets Orally twice a day Sertraline HCl 150 MG Capsule 1 capsule Orally Once a day SITagliptin 100 MG Tablet 1 tablet Orally Once a day Sodium Fluoride 1.1 % Paste as directed Dental Tamsulosin HCl 0.4 MG Capsule 1 capsule Orally Once a day Vitamin D3 50 MCG (1999) Capsule 1 capsule Orally Once a day Taking Acetaminophen Extra Strength 500 MG Tablet 2 tablets as needed Orally every 6 hrs Taking Allopurinol 100 MG Tablet 1 tablet Orally Once a day Taking amLODIPine Besylate 5 MG Tablet 1 tablet Orally Once a day Taking Ammonium Lactate 12 % Lotion 1 application Externally Twice a day As neededTaking Amoxicillin 500 MG Capsule 1 capsule Orally every 8 hrs Taking Apixaban 5 MG Tablet 1 tablet Orally twice a day Taking Aspirin 81 MG Tablet Delayed Release 1 tablet Orally Once a day Taking Atorvastatin Calcium 40 MG Tablet 1 tablet Orally Once a day Taking Cephalexin 250 MG Capsule 1 capsule Orally Once a day Taking Clotrimazole 1 % Cream 1 application Externally Twice a day Taking Empagliflozin 25 MG Tablet 1 tablet Orally Once a day Taking Furosemide 20 MG Tablet 1 tablet Orally Once a day Taking Hydrophilic - Ointment as directed Externally Taking Imiquimod 5 % Cream 1 application at bedtime, leave on for 8 hours then wash off Externally Three times a Week Taking Magnesium Oxide 400 MG Tablet 1 tablet with food Orally Once a day Taking Meclizine HCl 25 MG Tablet 1 tablet as needed Orally three times a day Taking Melatonin 3 MG Tablet 1-2 tablets at bedtime Orally Once a day Taking metFORMIN HCl 1000 MG Tablet 1 tablet with a meal Orally twice a day Taking Multivitamin - Tablet 1 tablet Orally Once a day Taking [place] 3 1000 MG Capsule 2 capsules Orally Three times a day Taking Pantoprazole Sodium 40 MG Tablet Delayed Release 1 tablet 1/2 to 1 hour before morning meal Orally Once a day Taking Potassium Chloride ER 20 MEQ Tablet Extended Release 1/2 tablet with food Orally twice weekly Taking Prazosin HCl 2 MG Capsule 1 capsule at bedtime Orally Once a day Taking Sennosides 8.6 MG Tablet 2 tablets Orally twice a day Taking Sertraline HCl 150 MG Capsule 1 capsule Orally Once a day Taking SITagliptin 100 MG Tablet 1 tablet Orally Once a day Taking Sodium Fluoride 1.1 % Paste as directed Dental Taking Tamsulosin HCl 0.4 MG Capsule 1 capsule Orally Once a day Taking Vitamin D3 50 MCG (1999) Capsule 1 capsule Orally Once a day Not-TakingDulcolax 10 MG Suppository 1 suppository as needed Rectal Once a day Dulcolax 5 MG Tablet Delayed Release 2 tablets as needed Orally Once a day Not-Taking Dulcolax 10 MG Suppository 1 suppository as needed Rectal Once a day Not-Taking Dulcolax 5 MG Tablet Delayed Release 2 tablets as needed Orally Once a day * Electronic signature of Michael Weinstein MD on 12/19/2024 at 10:22 AM CDT Sign off status: Pending * Provider: Compa Weinstein MD Date: 09/21/2024 Generated for Bria peña/Deondre/Mili on: 0 12/19/2024 10:22 AM CDT
--- OUTSIDE RECORDS SUMMARY | 2024-12-19 10:23 | XMS_ITS | Encounter Summary ---
Author Organization [facility] Address [address] [place] [address] Care Team Providers Care Bobbin Winder Name Role Phone Unavailable Primary Care Provider Unavailabl e Encounter Details Date Type Department Care Team (Late st Contact Info) Description 10/24/2019 Lab Requisition [facility] Laboratory Services [address] [place] [address] Velma Jalloh, EVALUATION MANAGER [address] [place] [address] Social History Tobacco Use Types Packs/Day Years Used Date Smoking Tobacco: Never Assessed Sex and Gender Information Value Date Recorded Sex Assigned at Not on file Legal Sex Male 12:11 PM CDT Gender Identity Not on file Sexual Orientation Not on file documented as of this encounter Plan of Treatment Not on file documented as of this encounter Procedures Procedure Name Priority Date/Time Associated Diagnosis Comments PROTIME-INR Stat 10/24/2019 8:16 AM CDT documented in this encounter Results * (ABNORMAL) PROTIME-INR (10/24/2019 8:16 AM CDT) PROTIME 19.2(H) 12.1 - 16.1 Seconds 10/24/2019 2:25 PM CDT [facility] [employer] [facility] INR 1.5(H) 0.8 - 1.2 10/24/2019 2:25 PM CDT [facility] Blood Collection / Unknown 10/24/2019 8:16 AM CDT 10/24/2019 2:08 PM CDT Narrative [facility] [employer] [facility] - 10/24/2019 2:25 PM CDT Expected Values for INR: DVT/PE Goal INR 2.5; range 2.0 - 3.0 Valve Replacement Tissue Goal INR 2.5; range 2.0 - 3.0 Valve Replacement Mechanical Goal INR 3.0; range 2.5 - 3.5 POST-ND Goal INR 2.5; range 2.0 - 3.0 or Goal INR 3.0; range 2.5 - 3.5 Atrial Fibrillation Goal INR 2.5; range 2.0 - 3.0 Ischemic Stroke Goal INR 2.5; range 2.0 - 3.0 For additional information see Guidelines for Anticoagulation available from the pharmacy Vipin Mcduffie Velma Sawant EVALUATION MANAGER HEMATOLOGY ORDERABLES Final Result [facility] [employer] [facility] CLIA# [id number] Formerly [facility] [place] [address] documented in this encounter Visit Diagnoses Not on filedocumented in this encounter
--- OUTSIDE RECORDS SUMMARY | 2024-12-19 10:23 | XMS_ITS | Encounter Summary ---
Author Organization [facility] Address [address] [place] [address] Care Team Providers Care Information Strategist Name Role Phone Unavailable Primary Care Provider Unavailabl e Encounter Details Date Type Department Care Team (Late st Contact Info) Description 10/11/2019 Lab Requisition [facility] Laboratory Services [address] [place] [address] Stephie Fabian ARNP [address] [place] [address] Social History Tobacco Use Types [...] Procedure Name Priority Date/Time Associated Diagnosis Comments EXTRA TUBE (RED) Routine 10/11/2019 6:03 AM CDT VITAMIN D 25 HYDROXY Stat 10/11/2019 6:03 AM CDT TSH Stat 10/11/2019 6:03 AM CDT VANCOMYCIN LEVEL RANDOM Stat 10/11/2019 6:03 AM CDT documented in this encounter Results * EXTRA TUBE (RED) (10/11/2019 6:03 AM CDT) Blood 10/11/2019 6:03 AM CDT 10/11/2019 3:43 PM CDT us Stephie HERNANDEZ CHEMISTRY ORDERABLES Miya l Result Performing Organization Address [facility] Co de Phone Number [facility] CLIA# [id number] [address] [place] [address] * VANCOMYCIN LEVEL RANDOM (10/11/2019 6:03 AM CDT) Pathologist [facility] VANCOMYCIN, RANDOM 10.1 5.0 - 50.0 ug/mL 10/11/2019 3:00 PM CDT [facility] Blood 10/11/2019 6:03 AM CDT 10/11/2019 2:25 PM CDT [facility] - 10/11/2019 3:00 PM CDT Vancomycin Therapeutic Ranges: Vancomycin Trough: 10 - 20 mcg/mL Vancomycin Peak: 25 - 50 mcg/mL [employer] [facility] CHEMISTRY ORDERABLES Miya l Result Performing Organization Address [facility] de Phone Number [facility] CLIA# [id number] [address] [place] [address] * (ABNORMAL) VITAMIN D 25 HYDROXY (10/11/2019 6:03 AM CDT) [facility] VITAMIN D TOTAL (25OH) 28(L) 30 - 100 ng/mL 10/11/2019 5:31 PM CDT [facility] Blood 10/11/2019 6:03 AM CDT 10/11/2019 2:25 PM CDT [facility] - 10/11/2019 5:31 PM CDT Interpretive Data Chart: Deficient: 0 - 20 ng/mL Insufficient: 21 - 29 ng/mL Sufficient: 30 - 100 ng/mL Increased Risk of Hypercalciuria: >100 ng/ml Toxic: >150 ng/ml [employer] WIRELESS TELEGRAPHER CHEMISTRY ORDERABLES Miya l Result Performing Organization Address [facility]/ZIP Co de Phone Number [facility] CLIA# [id number] [address] [place] [address] * TSH (10/11/2019 6:03 AM CDT) TSH 0.84 0.27 - 4.20 uIU/mL 10/11/2019 3:00 PM CDT [facility] Blood 10/11/2019 6:03 AM CDT 10/11/2019 2:25 PM CDT us Stephie HERNANDEZ CHEMISTRY ORDERABLES Miya l Result [facility] CLIA# [id number] [address] [place] [address] documented in this encounter Visit Diagnoses Not on filedocumented in this encounter
--- OUTSIDE RECORDS SUMMARY | 2024-12-19 10:23 | XMS_ITS | Encounter Summary ---
Author Organization [facility] Address [address] [place] [address] Care Team Providers Care Timber Packer Name Role Phone Unavailable Primary Care Provider Unavailabl e Encounter Details Date Type Department Care Team (Late st Contact Info) Description 10/16/[address] [facility] Laboratory Services [address] [place] [address] Velma Jalloh, CYLINDER INSPECTOR AND TESTER [address] [place] [address] Social History Tobacco Use Types [...] Priority Date/Time Associated Diagnosis Comments PROTIME-INR Stat 10/16/2019 5:08 AM CDT documented in this encounter Results * PROTIME-INR (10/16/2019 5:08 AM CDT) PROTIME 15.0 12.1 - 16.1 Seconds 10/16/2019 5:47 PM CDT [facility] [employer] [facility] INR 1.1 0.8 - 1.2 10/16/2019 5:47 PM CDT [facility] Blood Collection / Unknown 10/16/2019 5:08 AM CDT 10/16/2019 5:25 PM CDT Narrative [facility] [employer] [facility] - 10/16/2019 5:47 PM CDT Expected Values for INR: DVT/PE Goal INR 2.5; range 2.0 - 3.0 Valve Replacement Tissue Goal INR 2.5; range 2.0 - 3.0 Valve Replacement Mechanical Goal INR 3.0; range 2.5 - 3.5 POST-VT Goal INR 2.5; range 2.0 - 3.0 or Goal INR 3.0; range 2.5 - 3.5 Atrial Fibrillation Goal INR 2.5; range 2.0 - 3.0 Ischemic Stroke Goal INR 2.5; range 2.0 - 3.0 For additional information see Guidelines for Anticoagulation available from the pharmacy Vipin Mcduffie Velma Sawant CYLINDER INSPECTOR AND TESTER HEMATOLOGY ORDERABLES Final Result [facility]# [id number] [address] [place] [id number] documented in this encounter Visit Diagnoses Not on filedocumented in this encounter
--- OUTSIDE RECORDS SUMMARY | 2024-12-19 10:23 | XMS_ITS | Encounter Summary ---
Author Organization [facility] Address [address] [place] [address] Care Team Providers Care Merchandise Support Associate Name Role Phone Unavailable Primary Care Provider Unavailabl e Encounter Details Date Type Department Care Team (Late st Contact Info) Description 10/11/2019 Lab Requisition [facility] Laboratory Services [address] [place] [address] Stephie Fabian, [facility] [address] [place] [address] Social History Tobacco Use Types [...] Procedure Name Priority Date/Time Associated Diagnosis Comments MICROALBUMIN/CREATI NINE RATIO, RANDOM UR Stat 10/11/2019 5:45 AM CDT documented in this encounter Results * MICROALBUMIN/CREATININE RATIO, RANDOM UR (10/11/2019 5:45 AM CDT) ALBUMIN, URINE <5.0 mg/L 10/12/2019 1:[address] [facility] Comment: ADDITIONAL INFORMATION This test has been modified from the tin stacker's instructions. Its performance characteristics were determined by [facility] in a manner consistent with CLIA requirements. This test has not been cleared or approved by the U.S. Food and Drug Administration. CREATININE, URINE 30 mg/dL 020 1:10 PM CDT [facility] ALBUMIN/CREATININE RATIO <17 <17 mg/g 10/12/2019 1:10 PM CDT [facility] Comment: This ratio may not correspond with the reference range because one or both of the values used to calculate the ratio was above or below the quantification limits. Test Performed by: [place] [address] [employer] Fab[employer]ator: Carlos Penny M.D. Ph.D.; CLIA# [id number] Urine URINE SPECIMEN OBTAINED BY CLEAN CATCH PROCEDURE / Unknown Collection / Unknown 10/11/2019 5:45 AM CDT 10/11/2019 2:23 PM CDT us Stephie Fabian [employer] URINE ORDERABLES Final Re sult [facility] documented in this encounter Visit Diagnoses Not on filedocumented in this encounter
--- OUTSIDE RECORDS SUMMARY | 2024-12-19 10:23 | XMS_ITS | Patient Health Record ---
Author Organization [facility] Address [address] [place] [address] Care Team Providers Care Manager Data Name Role Phone Kaila Guerra MD Primary Care Provider UnavailSahil Parra Unavailable [phone] [place], [place] Unavailable Unavailable Gastroenterology, [facility] Unavailable [phone] Darryl Garcia Unavailable [phone] Keo Thao Unavailable [phone] Allergies No Known Allergies Results Component Value Reference Range Notes Echo Complete [id number] Reviewed date:09/12/2024 04:59:17 PM Interpretation: Performing Lab: Notes/Report: [id number] Echo Complete [id number] Reviewed date:09/13/2024 04:23:17 PM Interpretation: Performing Lab: Notes/Report: Cardiopulmonary Services Name: AZAM BARTH Study Date: 09/12/2024 : 1945 Patient Location: [facility] Age: 79 yrs Gender: Male Height: 72 in Weight: 193 lb BP: 113/61 mmHg HR: 72 BSA: 2.1 m2 Reason For Study: AOVR, Hx of endocarditis, Unspecified A flutter, Essential HTN Interpretation Summary This study is technically difficult with sub-par images in one or multiple views. Overall ejection fraction is approximately 55-60%. The left atrium is severely dilated. Calcified mitral apparatus. There is mild mitral regurgitation. There is mild tricuspid regurgitation. Right ventricular systolic pressure is elevated at 30-40mmHg. There is a bioprosthetic aortic valve with Mild aortic regurgitation. Doppler suggests a jennifer-prosthetic leak of the prosthetic aortic valve. Vmax 2.67m/s across aortic valve Abnormal color doppler flow seen between sinus us valsalva into LA Consider MARINA Recommendations Continue present medications with good response to therapy. Will continue to follow regularly. Left Ventricle There is moderate concentric left ventricular hypertrophy. Overall ejection fraction is approximately 55-60%. This study is technically difficult with sub- par images in one or multiple views. Right Ventricle The right ventricle is normal size. Atria The left atrium is severely dilated. The right atrium is moderate to severely dilated. The interatrial septum is intact with no evidence for an atrial septal defect. Pericardium/Pleural There is no pericardial effusion. There is no pleural effusion. Mitral Valve Calcified mitral apparatus. There is mild mitral regurgitation. Aortic Valve Mild aortic regurgitation. There is a bioprosthetic aortic valve. Doppler suggests a jennifer-prosthetic leak of the prosthetic aortic valve. Vmax 2.67m/s across aortic valve. Tricuspid Valve The tricuspid valve is not well visualized, but is grossly normal. There is mild tricuspid regurgitation. Right ventricular systolic pressure is elevated at 30-40mmHg. Pulmonic Valve The pulmonic valve is not well visualized. Trace pulmonic valvular regurgitation. MMode/2D Measurements & Calculations RVDd: 3.7 cm LVIDd: 4.2 cm FS: 23.6 % IVSd: 1.5 cm LVIDs: 3.2 cm EDV(Teich): 77.0 ml LVPWd: 1.5 cm ESV(Teich): 40.4 ml EF(Teich): 47.5 % Ao root diam: 4.6 cm asc Aorta Diam: 3.7 cm LVOT diam: 2.5 cm Ao root area: 16.3 cm2 LVOT area: 5.1 cm2 Time Measurements Aortic HR: 67.6 BPM MM HR: 69.1 BPM Pulm. R-R: 0.94 sec Pulm. HR: 64.1 BPM Doppler Measurements & Calculations MV E max hugo: 197.0 cm/sec MV V2 max: 208.6 cm/sec Ao V2 max: 233.0 cm/sec MV max P.4 mmHg Ao max P.2 mmHg MV V2 mean: 97.4 cm/sec Ao V2 mean: 169.8 cm/sec MV mean P.1 mmHg Ao mean P.8 mmHg MV V2 VTI: 49.3 cm Ao V2 VTI: 47.6 cm MVA(VTI): 3.2 cm2 MANOLO(I,D): 3.3 cm2 MANOLO(V,D): 3.1 cm2 AI max hugo: 342.1 cm/sec LV V1 max P.9 mmHg CO(LVOT): 10.6 l/min AI max P.8 mmHg LV V1 mean P.6 mmHg SV(LVOT): 157.0 ml AI dec slope: 150.8 cm/sec2 LV V1 max: 139.8 cm/sec AI P1/2t: 664.3 msec LV V1 mean: 102.3 cm/sec LV V1 VTI: 30.8 cm PA V2 max: 86.3 cm/sec TR max hugo: 276.2 cm/sec RAP systole: 5.0 mmHg PA max P.0 mmHg TR max P.5 mmHg PA V2 mean: 64.6 cm/sec RVSP(TR): 35.5 mmHg PA mean P.8 mmHg PA V2 VTI: 18.4 cm Ordering Physician: Sahil Weinstein Referring Physician: Sahil Weinstein Performed By: Jeniffer Camargo Echo Complete [id number] Reviewed date:09/04/2024 01:45:18 PM Interpretation: Performing Lab: Notes/Report: Reason For Referral Reason 09/04/2024 OV CARD IOLOGY/ EVAL AND TREAT/ 1 C Diagnosis 1 Other persistent atr ial fibrillation (I48.19) Referring Provider First Name Kaila Referring Provider Last Name [facility] Referring Provider Speciality Family [facility] Referred Organization [facility] Referred Provider Sahil Weinstein Referred Address [address] [place] [address],[place],[address], Referred Provider Specialty Cardiology Referral Priority Routine Medications Medication SIG (Take, Route, Frequency, Duration) Notes Start Date End Date Status Pantoprazole Sodium 40 MG Tablet Delayed Release 1 tablet 1/2 to 1 hour before morning meal Orally Once a day Active Acetaminophen Extra Strength 500 MG Tablet 2 tablets as needed Orally every 6 hrs 08/14/2024 Active Prazosin HCl 2 MG Capsule 1 capsule at b edtime Orally Once a day Active Potassium Chloride ER 20 MEQ Tablet Extended Release 1/2 tablet with food Orally twice weekly 08/14/2024 Active amLODIPine Besylate 5 MG Tablet 1 tablet Orally Once a day Active Sertraline HCl 150 MG Capsule 1 capsule Orally Once a day Active Allopurinol 100 MG Tablet 1 tablet Orall y Once a day Active Sennosides 8.6 MG Tablet 2 tablets Orall y twice a day 08/14/2024 Active Amoxicillin 500 MG Capsule 1 capsule Orally every 8 hrs Active Sodium Fluoride 1.1 % Paste as directed Dental Active Ammonium Lactate 12 % Lotion 1 application Externally Twice a day As needed 08/14/2024 Active SITagliptin 100 MG Tablet 1 tablet Orall y Once a day Active Aspirin 81 MG Tablet Delayed Release 1 tablet Orally Once a day Active Vitamin D3 50 MCG (1999 UT) Capsule 1 capsule Orally Once a day Active Apixaban 5 MG Tablet 1 tablet Orally twi ce a day 08/14/2024 Active Tamsulosin HCl 0.4 MG Capsule 1 capsule Orally Once a day 08/14/2024 Active Cephalexin 250 MG Capsule 1 capsule Oral ly Once a day Not-Taking Dulcolax 5 MG Tablet Delayed Release 2 tablets as needed Orally Once a day 08/14/2024 Not-Taking Atorvastatin Calcium 40 MG Tablet 1 tablet Orally Once a day Active Dulcolax 10 MG Suppository 1 suppository as needed Rectal Once a day 08/14/2024 Not-Taking Empagliflozin 25 MG Tablet 1 tablet Orally Once a day Active Clotrimazole 1 % Cream 1 application Externally Twice a day 08/14/2024 Active Furosemide 20 MG Tablet 1 tablet Orally Once a day Active Imiquimod 5 % Cream 1 application at bedtime, leave on for 8 hours then wash off Externally Three times a Week Active Hydrophilic - Ointment as directed Externally Active Meclizine HCl 25 MG Tablet 1 tablet as needed Orally three times a day 08/14/2024 Active Magnesium Oxide 400 MG Tablet 1 tablet with food Orally Once a day Active metFORMIN HCl 1000 MG Tablet 1 tablet with a meal Orally twice a day 08/14/2024 Active Melatonin 3 MG Tablet 1-2 tablets at bed time Orally Once a day 08/14/2024 Active [place] 3 1000 MG Capsule 2 capsules Orall y Three times a day 08/14/2024 Active Multivitamin - Tablet 1 tablet Orally On ce a day Active Social History Tobacco Use: Social History Observation Description Date Details (start date - stop date) Former Smoker NA - NA Social History Drugs/Alcohol: Social Info Question Answer Notes Caffeine Intake: more than 4 cups per day Tobacco Use: Social Info Question Answer Notes Tobacco Control (Standard) Tobacco use: Former smoker How long has it been since you last smoked? Greater than 10 years Additional Details Category Social Info Options Details Drugs/Alcohol: Do you smoke marijuana? De nies Do you drink alcohol? Yes, coupl e beers once a week maybe Problems Problem Type SNOMED Code ICD Code Onset Dates Problem Status W/U Status Risk Notes Problem Type II diabetes mellitus without complication (233666724) Type 2 diabetes mellitus without complications (E11.9) Active confirmed Problem Atrial flutter (8404539) Unspecified atrial flutter (I48.92) Active confirmed Problem Persistent atrial fibrillation (disorder) (979831347) Other persistent atrial fibrillation (I48.19) Active confirmed Problem Essential hypertension (71013426) Essential hypertension (I10) Active confirmed Problem Occlusion and stenosis of multiple and bilateral cerebral arteries (980413719) Carotid stenosis, bilateral (I65.23) Active confirmed Problem COPD - Chronic obstructive pulmonary disease (72658499) COPD (chronic obstructive pulmonary disease) (J44.9) Active confirmed Problem History of heart valve repair with prosthesis (341691623224732 ) Aortic valve replaced (Z95.2) Active confirmed Problem History of endocarditis (304328021) History of endocarditis (Z86.79) Active confirmed Problem Carotid artery disease (297549276) Carotid arterial disease (I77.9) Active confirmed Problem Abdominal aortic aneurysm without rupture (disorder) (78808224) Abdominal aortic aneurysm (AAA) without rupture, unspecified part (I71.40) Active confirmed Problem Abdominal aortic aneurysm 3.0 to 5.0 centimeters in female (disorder) (936717825594977 ) Abdominal aortic aneurysm (AAA) 3.0 cm to 5.0 cm in diameter in female (I71.40) Active confirmed Vital Signs Heart Rate 86 /min 11/05/2024 Temperature 97.0 degrees Fahrenheit 08/14/2024 Oximetry 99 % 11/05/2024 Blood pressure diastolic 72 mm Hg 11/05/2024 Weight-kg 86.41 kg 11/05/2024 Blood pressure systolic 120 mm Hg 11/05/2024 Weight 190.5 lbs 11/05/2024 Encounters Encounter Location Date Provider Diagnosis [facility] [address] [place] [address] 09/04/2024 Sahil Weinstein History of endocarditis Z86.79 ; Aortic valve replaced Z95.2 ; Unspecified atrial flutter I48.92 ; Essential hypertension I10 ; Type 2 diabetes mellitus without complications E11.9 ; COPD (chronic obstructive pulmonary disease) J44.9 ; Carotid arterial disease I77.9 and Abdominal aortic aneurysm (AAA) 3.0 cm to 5.0 cm in diameter in female I71.40 [facility] [address] [place] [address] 09/12/2024 Sahil Weinstein [facility] [address] [place] [address] 11/05/2024 Sahil Weinstein Aortic valve replaced Z95.2 ; History of endocarditis Z86.79 ; Unspecified atrial flutter I48.92 ; Essential hypertension I10 ; Type 2 diabetes mellitus without complications E11.9 ; COPD (chronic obstructive pulmonary disease) J44.9 ; Carotid arterial disease I77.9 and Abdominal aortic aneurysm (AAA) 3.0 cm to 5.0 cm in diameter in female I71.40 [facility] [address] [place] [address] 08/14/2024 Keo Rodgersard Abdominal aortic aneurysm (AAA) without rupture, unspecified part I71.40 and Carotid stenosis, bilateral I65.23 [facility] [address] [place] [address] 08/03/2024 [facility] [address] [place] [address] 12/12/2024 [facility]enter[facility] [address] [place] [address], [place] [address] 09/13/2024 [employer] Weinstein [facility] [address] [place] [address] 09/11/2024 Sahil Weinstein Assessments Encounter Date Diagnosis (ICD Code) Assessment Notes Treatment Notes Treatment Clinical Notes Section Notes 08/14/2024 Carotid stenosis, bilateral (ICD-10 - I65.23) Based on history no carotid intervention is indicated at this time. I have sent for the carotid ultrasound report from [place]. If findings are different than the history then we will call him back regarding possible carotid intervention. In the meantime continue with current medications. Follow-up in 1 year with carotid duplex and abdominal ultrasound 08/14/2024 Abdominal aortic aneurysm (AAA) without rupture, unspecified part (ICD-10 - I71.40) I do not have access to his studies from [place] yet. We have sent for those. Based on his examination he has a small abdominal aortic aneurysm. Will plan for yearly surveillance with ultrasound unless I find differently when I receive the studies from [place]. 09/04/2024 Aortic valve replaced (ICD-10 - Z95.2) Patient has recent endocarditis of aortic valve that was treated with medication. S/p 6 weeks of 1 year antibiotics. He is currently still taking oral antibiotic. He has appointment to see infectious disease doctor in the [place] next week. We talked about echocardiogram. 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 I strongly recommend the patient to follow-up with the primary doctor and infectious disease doctor to talk about colonoscopy. 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 Patient has been seen by infectious disease specialist in [place]. He had a transthoracic echocardiogram back in August 2024 in [place]. Echo showed ejection fraction 55 to 60%. There was a bioprosthetic aortic valve with mild aortic regurgitation. Doppler suggest periprosthetic leak. There was abnormal color Doppler flow seen between sinus of Valsalva into the left atria. Patient will get benefit from MARINA procedure. The patient has her primary erp specialist in the [place] Dr. Wilson. I spoke to his nurse practitioner. Plan is follow-up with [place] to discuss the MARINA procedure. We can go ahead and send today's note and the echo report from August 2024. 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 I strongly recommend the patient to follow-up with the primary doctor and infectious disease doctor to talk about colonoscopy. 11/05/2024 Unspecified atrial flutter (ICD-10 - I48.92) Continue systemic anticoagulation for CVA prevention. She has Holter monitor from the [facility] with pauses up to 3.4 seconds no symptoms. Patient has appointment to discuss leadless pacemaker in [place] in December 2024. 09/04/2024 Unspecified atrial flutter (ICD-10 - I48.92) Currently A-fib but heart rate is 65 so rate controlled. Continue systemic anticoagulation for CVA prevention. She has Holter monitor from the [facility] with pauses up to 3.4 seconds no symptoms. No pacemaker yet. In addition, the patient is having recent endocarditis, still being on oral antibiotic, I do not see any good indication for pacemaker at [facility]. EKG in office today indication history of endocarditis a flutter hypertension type 2 diabetes finding are A-fib with average heart rate of 68 09/04/2024 Essential hypertension (ICD-10 - I10) Blood pressure at goal. EKG in office today indication history of endocarditis a flutter hypertension type 2 diabetes finding are A-fib with average heart rate of 68 11/05/2024 Essential hypertension (ICD-10 - I10) Blood pressure at goal. 11/05/2024 Type 2 diabetes mellitus without complications (ICD-10 - E11.9) 09/04/2024 Type 2 diabetes mellitus without complications (ICD-10 - E11.9) EKG in office today indication history of endocarditis a flutter hypertension type 2 diabetes finding are A-fib with average heart rate of 68 09/04/2024 COPD (chronic obstructive pulmonary disease) (ICD-10 - J44.9) EKG in office today indication history of endocarditis a flutter hypertension type 2 diabetes finding are A-fib with average heart rate of 68 11/05/2024 COPD (chronic obstructive pulmonary disease) (ICD-10 - J44.9) 11/05/2024 Carotid arterial disease (ICD-10 - I77.9) Seen by vascular surgery 09/04/2024 Carotid arterial disease (ICD-10 - I77.9) Seen by vascular surgery EKG in office today indication history of endocarditis a flutter hypertension type 2 diabetes finding are A-fib with average heart rate of 68 09/04/2024 Abdominal aortic aneurysm (AAA) 3.0 cm to 5.0 cm in diameter in female (ICD-10 - I71.40) Seen by vascular surgery EKG in office today indication history of endocarditis a flutter hypertension type 2 diabetes finding are A-fib with average heart rate of 68 11/05/2024 Abdominal aortic aneurysm (AAA) 3.0 cm to 5.0 cm in diameter in female (ICD-10 - I71.40) Seen by vascular surgery 09/04/2024 Other Joana Hernandez, am scribing for Sahil Weinstein MD. Sahil Hernandez MD, personally performed the services prescribed in this documentatio n, as scribed by Joana Cobb and it is both accurate and complete. EKG in office today indication history of endocarditis a flutter hypertension type 2 diabetes finding are A-fib with average heart rate of 68 11/05/2024 Other I, Joana Cobb, am scribing for Sahil Weinstein MD. Sahil Hernandez MD, personally performed the services prescribed in this documentatio n, as scribed by Joana Cobb and it is both accurate and complete. Plan Of Treatment Pending Test Test Name Order Date Electrocardiogram (EKG) - [id number] 09/05/19 Next Appt Details Provider Name:Darryl hawk, 08/15/2025 10:45:00 AM, [address] [place] [address] [address] [place], [place], [address], Provider Name:Qamar ortiz, 08/15/2025 11:30:00 AM, [address] [place] [address] [address] [place], [place], [address], Insurance Providers Payer Name Payer Address Payer Phone Subscriber Number Group Number Insured Name Patient Relationship to Insured Coverage Start Date Coverage End Date [employer] [address] [place] [phone] [id number] Azam Barth Self - patient is the insured Medical (General) History Medical History History ICD Code Type 2 Diabetes High Cholesterol Hypertension Skin cancer 2 Mini strokes COPD received the covid vacc. Surgical History Surgery Date(Month/Year) Open Heart surgery 2022 Double Hernia Surgery R shoulder rotator cuff surgery Sepsis Hospitalization History Reason Date(Month/Year) [facility] - Low heartrate [facility] - Sepsis [facility] - Pneumonia
--- OUTSIDE RECORDS SUMMARY | 2024-12-19 10:23 | XMS_ITS | Clinical Summary ---
Author Organization [facility] Address [address] [place] [address] Phone Care Team Providers Care Criminal Justice Professor Name Role Phone Unavailable Primary Care Provider Unavailabl e Immunizations Immunization Administration Dates Next Due (SPIKEVAX) (12 YRS UP PRIMAR Y SERIES) COVID-19 VACCINE - MRNA-1273(PF) 100 MCG/0.5 ML IM SUSP 08/01/2020,07/04/2020 Social History Tobacco Use Types Packs/Day Years Used Date Smoking Tobacco: Never Assessed Sex and Gender Information Value Date Recorded Sex Assigned at Not on file Legal Sex Male 12:11 PM CDT Gender Identity Not on file Sexual Orientation Not on file Plan of Treatment Health Maintenance Due Date Last Done Comments DTAP/TDAP/TD VACCINES (1 - Tdap) 1965 PNEUMOCOCCAL VACCINE 50+ YEA RS (1 of 1 - PCV) 1996 ZOSTER VACCINE (1 of 2) 1996 RSV VACCINE (60+ or ) (1 - 1-dose 75+ series) 2021 COVID-19 Vaccine (3 - season) 01/22/202404/2021, 07/04/2020 INFLUENZA VACCINE (#1) 2024
--- OUTSIDE RECORDS SUMMARY | 2024-12-19 10:23 | XMS_ITS | Encounter Summary ---
Author Organization [facility] Address [address] [place] [address] Care Team Providers Care Art Objects Supervisor Name Role Phone Unavailable Primary Care Provider Unavailabl e Encounter Details Date Type Department Care Team (Late st Contact Info) Description 10/24/2019 Lab Requisition [facility] Laboratory Services [address] [place] [address] [place] [address] Velma Jalloh, PROBATION WORKER [address] [place] [address] Social History Tobacco Use Types Packs/Day Years Used Date Smoking Tobacco: Never Assessed Sex and Gender Information Value Date Recorded Sex Assigned at Not on file Legal Sex Male 12:11 PM CDT Gender Identity Not on file Sexual Orientation Not on file documented as of this encounter Plan of Treatment Not on file documented as of this encounter Visit Diagnoses Not on filedocumented in this encounter
--- OUTSIDE RECORDS SUMMARY | 2024-12-19 10:23 | XMS_ITS | Encounter Summary ---
Author Organization [facility] Address [address] [place] [address] Care Team Providers Care Associate Music Professor Name Role Phone Unavailable Primary Care Provider Unavailabl e Encounter Details Date Type Department Care Team (Late st Contact Info) Description 10/19/2019 Lab Requisition [facility] Laboratory Services [address] [place] [address] [place] [address] Velma Jalloh, DIANETICIST [address] [place] [address] Social History Tobacco Use Types [...] Priority Date/Time Associated Diagnosis Comments PROTIME-INR Stat 10/19/2019 4:03 AM CDT documented in this encounter Results * PROTIME-INR (10/19/2019 4:03 AM CDT) PROTIME 15.2 12.1 - 16.1 Seconds 10/19/2019 2:17 PM CDT [facility] [employer] [facility] INR 1.1 0.8 - 1.2 10/19/2019 2:17 PM CDT [facility] Blood Collection / Unknown 10/19/2019 4:03 AM CDT 10/19/2019 2:02 PM CDT Narrative [facility] [employer] [facility] - 10/19/2019 2:17 PM CDT Expected Values for INR: DVT/PE Goal INR 2.5; range 2.0 - 3.0 Valve Replacement Tissue Goal INR 2.5; range 2.0 - 3.0 Valve Replacement Mechanical Goal INR 3.0; range 2.5 - 3.5 POST-MD Goal INR 2.5; range 2.0 - 3.0 or Goal INR 3.0; range 2.5 - 3.5 Atrial Fibrillation Goal INR 2.5; range 2.0 - 3.0 Ischemic Stroke Goal INR 2.5; range 2.0 - 3.0 For additional information see Guidelines for Anticoagulation available from the pharmacy Vipin Mcduffie Velma Sawant DIANETICIST HEMATOLOGY ORDERABLES Final Result [facility] LAB[facility]# [id number] [address] [place] [address] [id number] documented in this encounter Visit Diagnoses Not on filedocumented in this encounter
[2024-12-19 10:32] VITALS: BP 133/77; PULSE 80; RESP 18; TEMP 36.5; O2SAT 97
--- NOTE | 2024-12-19 10:42 | CT_ITS ---
WS: [id number] CT HEAD TECHNIQUE: Noncontrast CT of the head obtained from the skullbase to the vertex. CLINICAL INFORMATION: fall COMPARISON: July 2024 DLP: 1792.[address] scans at [facility] use at least one of these dose optimization techniques: automated exposure control; mA and/or kV adjustment per patient size (includes targeted exams where dose is matched to clinical indication); or iterative reconstruction. FINDINGS: No evidence of intracranial hemorrhage or mass effect. Ventricular system and basal cisterns are patent. Moderate small vessel changes with moderate parenchymal volume loss worse in the frontal lobes. No extra-axial fluid collections. No evidence of mass or mass effect. Vascular calcification. Air-fluid level in the RIGHT maxillary sinus. Mastoid air cells are well aerated. CT/CT head wo con* [id number] IMPRESSION: 1. No evidence of intracranial hemorrhage or mass effect. 2. No acute intracranial findings.
--- NOTE | 2024-12-19 10:42 | CT_ITS ---
WS: [id number] CT FACIAL BONES TECHNIQUE: Noncontrast facial bones with coronal and sagittal reformatted images. CLINICAL INFORMATION: fall COMPARISON: None. DLP: 1792.[address] scans at [facility] use at least one of these dose optimization techniques: automated exposure control; mA and/or kV adjustment per patient size (includes targeted exams where dose is matched to clinical indication); or iterative reconstruction. FINDINGS: Dental artifact degrades some images. Air-fluid level within the RIGHT maxillary sinus. Normal RIGHT zygoma. Normal pterygoid plates. No evidence of of orbital floor fracture. Anterior nasal bones appear normal. Normal anterior process of the maxilla. Mild mucosal thickening in the ethmoid air cells. Chronic RIGHT LEFT nasal septal deviation. Normal lamina papyracea. Lateral orbits are normal. No evidence of mandibular fracture or dislocation. Trace fluid in the sphenoid sinus. 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 CT/CT facial bones wo con* [id number] IMPRESSION: 1. Air-fluid level in the RIGHT sphenoid sinus. 2. No visualized acute fractures.
[2024-12-19 10:50] VITALS: BP 147/74; PULSE 79; RESP 16; O2SAT 98
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
--- NOTE | 2024-12-19 11:28 | PC.PHAR ---
Verified pts' medication list with [facility] instead of waiting for Medical Records to fax it.
[2024-12-19] MEDS: neomycin-poly-bacitracin oint 0.9 gm Pkt 1 APPLIC TOPICAL (12:18)
[2024-12-19 12:21] VITALS: BP 145/63; PULSE 78; RESP 16; O2SAT 96
== END 2024-12-19 12:22 | disposition home or self-care (01) ==
PROVIDERS: Emergency Provider Emergency Medicine; PCP Family Medicine
DX: S09.8XXA Other specified injuries of head, initial encounter (principal); S01.411A Laceration without foreign body of right cheek and temporomandibular area, initial encounter; W19.XXXA Unspecified fall, initial encounter; Z79.82 Long term (current) use of aspirin; Z79.01 Long term (current) use of anticoagulants; Z79.84 Long term (current) use of oral hypoglycemic drugs; Z87.891 Personal history of nicotine dependence; J44.9 Chronic obstructive pulmonary disease, unspecified; E11.9 Type 2 diabetes mellitus without complications; I10 Essential (primary) hypertension; I25.10 Atherosclerotic heart disease of native coronary artery without angina pectoris
CPT/HCPCS: 70450; 70486; 99284; J9999

== ENCOUNTER → 2025-01-24 11:53 | Outpatient (BNVA) | payer OTHER, SELFPAY | PROVIDERS: PCP Family Medicine; Visit Provider Internal Medicine | DX: I48.91 Unspecified atrial fibrillation (principal); Z79.01 Long term (current) use of anticoagulants; Z79.82 Long term (current) use of aspirin; I35.0 Nonrheumatic aortic (valve) stenosis; I10 Essential (primary) hypertension; I73.9 Peripheral vascular disease, unspecified; Z95.2 Presence of prosthetic heart valve; Z87.891 Personal history of nicotine dependence | CPT/HCPCS: 99214 ==

== ENCOUNTER → 2025-04-11 12:40 | Outpatient (BNVA) | payer OTHER, SELFPAY | PROVIDERS: PCP Family Medicine; Visit Provider Nurse Practitioner Family | DX: L57.8 Other skin changes due to chronic exposure to nonionizing radiation (principal); L81.4 Other melanin hyperpigmentation; D22.39 Melanocytic nevi of other parts of face; L82.1 Other seborrheic keratosis; L57.0 Actinic keratosis | CPT/HCPCS: 17000; 99213 ==